=== PATIENT | male | born 1950 | race Caucasian/White ===

== ENCOUNTER 2017-09-09 01:37 | Inpatient (IN) ==
--- NOTE | 2017-09-09 02:00 | Emergency Department Note ---
Disposition Clinical Impression: Fracture, intertrochanteric, left femur Qualifiers: Encounter type: initial encounter Fracture type: closed Fracture alignment: displaced Qualified Code(s): S72.142A - Displaced intertrochanteric fracture of left femur, initial encounter for closed fracture Fracture of left distal radius Qualifiers: Encounter type: initial encounter Fracture type: closed Fracture morphology: unspecified fracture morphology Qualified Code(s): S52.502A - Unspecified fracture of the lower end of left radius, initial encounter for closed fracture Disposition: Admitted As Inpatient Condition: Good Time of Disposition: 03:59 Fall HPI - General Chief Complaint: ED Fall Stated Complaint: fall Time Seen by Provider: 09/09/17 01:50 Source: patient, EMS Nursing Notes Reviewed: Yes Vital Signs Reviewed: Yes - History of Present Illness Pt Subjective Complaint: fall Onset (ago): Just [employer] A[employer]LYST Fall From: standing Fall Witnessed: yes Place Fall Occurred: other ([employer] [employer]) Loss of Consciousness: none Prolonged Down Time?: no Symptoms Prior to Fall: other ("lost my balance) Context: alcohol use Location of injury - extremities: Left: forearm, hip, lower leg Associated symptoms (after fall): Reports: unable to walk, other (LLE pain). Denies: headache, neck pain - Related Data Allergies Allergy/AdvReac Type Severity Reaction Status Date / Time Penicillins Allergy See Verified 09/09/17 01:42 Comments All systems ED: reviewed and negative except as stated. Constitutional: Denies: fever Eyes: Denies: vision change Cardiovascular: Denies: chest pain, palpitations Respiratory: Denies: dyspnea Gastrointestinal: Denies: abdominal pain, nausea, vomiting Musculoskeletal: Reports: as per HPI. Denies: back pain Integumentary: Denies: rash Neurological: Denies: headache Endocrine: Denies: fatigue Hematological/Lymphatic: Denies: easy bleeding Allergic/Immunologic: Denies: facial swelling Fall PMH - Past Medical History Medical history: Reports: COPD, GERD, hyperlipidemia, hypertension Psychiatric history: Reports: no psych history - Social History Smoking Status: Current every day smoker Alcohol use: Reports: occasionally Drug use: Reports: none Physical Exam - General Limitations: no limitations General appearance: alert, in no apparent distress - Head Head exam: normocephalic - Eye Eye exam: Present: EOMI. Absent: conjunctival injection - ENT ENT exam: mucous membranes moist - Neck Neck exam: Present: full ROM - Chest Chest inspection: Present: symmetric chest wall rise - Respiratory Respiratory exam: Present: normal lung sounds bilaterally. Absent: respiratory distress - Cardiovascular Cardiovascular exam: Present: regular rate, normal rhythm - Abdominal Exam Abdominal exam: Present: soft, Non-Tender - Extremities Exam Extremities exam: Present: normal capillary refill - Expanded Upper Extremity Exam Shoulder exam: Present: full ROM. Absent: tenderness Arm exam: Present: full ROM. Absent: tenderness Elbow exam: Present: full ROM. Absent: tenderness Forearm/Wrist exam: Present: tenderness, swelling, deformity (left). Absent: full ROM, tenderness over anatomical snuff box Hand exam: Present: tenderness. Absent: full ROM Neuromotor exam: Normal: thumb opposition, thumb IP flexion, thumb adduction, fingers 2-5 abduction Neurosensory exam: Normal: 2-point discrimination Hand tendon exam: Normal: flexor digitorum profundus (location), flexor digitorum superficialis (location), extensor tendon (location) Vascular exam: Normal: capillary refill, radial pulse - Expanded Lower Extremity Exam Hip/Pelvis exam: Present: tenderness. Absent: full ROM (left passive ROM limited due to pain), external rotation, internal rotation, shortening Upper leg exam: Absent: tenderness Knee exam: Absent: tenderness Lower leg exam: Absent: tenderness Ankle exam: Present: normal inspection. Absent: tenderness Foot/toe exam: Present: normal inspection. Absent: tenderness Neurovascular/Tendon exam: Present: normal capillary refill. Absent: pulse deficit, motor deficit, sensory deficit, tendon deficit Gait: not tested/not observed - Back Exam Back exam: Present: full ROM. Absent: tenderness - Neurological Exam Neurological exam: Present: alert, oriented X3 - Psychiatric Psychiatric exam: Present: normal affect, normal mood - Skin Skin exam: Present: warm, dry, intact, normal color. Absent: rash, cyanosis, diaphoresis Course Course Narrative: 67-year-old female who arrives via squad with report of injuries from a fall. Squad reports patient was at the [employer], and they were told patient had come in from the patio and had fallen down. Patient reports that he lost his balance. Fall was witnessed by the clubs ceo and president. Patient does report etoh intake of "5 or 6". No reported injury to his head or neck, loss of consciousness, prolonged downtime. She is vitals within normal limits. Vision seen and examined. He is alert and oriented 3. Notable deformity to his left wrist, but good cap refill. No sensory deficits. No facial asymmetry. Lung sounds clear to auscultation. Heart regular rate and rhythm. Patient complains of left hip pain. No notable deformity, shortening, internal or external rotation. Passive range of motion limited due to pain. No abdominal tenderness knee tenderness. Discussed patient with Dr. Arora, who agreed with CT scan of head and neck. Analgesics ordered. Imaging ordered. - Reevaluation(s) Reevaluation #1: Left hip x-ray shows femoral neck fracture. Left forearm x-ray shows distal radius fracture. Radiologist report pending. We will plan for admission, ortho consult, and attempt to control patient's pain. Discussed pt with Dr. Arora who had face time with patient and agreed with admission. Time: 02:57 Reevaluation #2: Pt discussed with and accepted by Hospitalist Dr. Hoffman Time: 04:19 - Consultations Consultation #1: Patient was discussed with on-call orthopedic surgeon is Dr. Emerson, who requested admission to the hospitalist, to have patient kept nothing by mouth for likely surgery tomorrow. Time: 03:57 Vital Signs Temperature 0 F L 09/09/17 01:42 Pulse Rate 87 09/09/17 01:42 Respiratory Rate 16 09/09/17 01:42 Blood Pressure 121/78 09/09/17 01:42 O2 Sat by Pulse Oximetry 96 09/09/17 01:42 Temperature 97.6 F 09/09/17 05:12 Pulse Rate 92 09/09/17 05:12 Respiratory Rate 19 09/09/17 05:12 Blood Pressure 142/78 09/09/17 05:12 O2 Sat by Pulse Oximetry 96 09/09/17 05:12 Oxygen Delivery Oxygen Delivery Room Air Fall - MDM Narrative Medical decision making narrative: Cervical Spine CT 09/09/17 01:52 IMPRESSION: No acute abnormality of the cervical spine. D/ / Jose Escalante MD / Jose Escalante MD Interpreting Provider: Jose Escalante MD Head CT 09/09/17 01:52 IMPRESSION: Small vessel chronic ischemic changes without acute hemorrhage or definite evidence for acute ischemia. D/ / Jose Escalante MD / Jose Escalante MD Interpreting Provider: Jose Escalante MD Forearm X-Ray 09/09/17 01:54 IMPRESSION: 1. Comminuted distal radius with dorsal displacement at the fracture site. D/ / Juan Laws MD / Juan Laws MD Interpreting Provider: Juan Laws MD Hand X-Ray 09/09/17 01:54 IMPRESSION: 1. Comminuted distal radius with dorsal displacement at the fracture site. D/ / Juan Laws MD / Juan Laws MD Interpreting Provider: Juan Laws MD Hip X-Ray 09/09/17 01:56 IMPRESSION: Acute, angulated intertrochanteric left hip fracture. D/ / Jose Escalante MD / Jose Escalante MD Interpreting Provider: Jose Escalante MD Laboratory Tests 09/09/17 09/09/17 09/09/17 03:11 03:11 03:11 WBC 9.0 RBC 3.45 L Hgb 11.0 L Hct 31.2 L MCV 90.4 MCH 31.9 MCHC 35.3 RDW 15.1 H Plt Count 314 MPV 9.3 L Immature Gran % 1.1 Seg Neutrophils % 72.0 Lymphocytes % 16.2 Monocytes % 8.8 Eosinophils % 1.0 Basophils % 0.9 Neutrophils # 6.5 Lymphocytes # 1.5 Monocytes # 0.8 Eosinophils # 0.1 Basophils # 0.1 Immature Plt Fraction 5.1 PT 10.4 INR 1.0 APTT 27.2 Sodium 124 L Potassium 4.4 Chloride 94 L Carbon Dioxide 18 L BUN 6 L Creatinine 0.56 L Est GFR ( Amer) > 60 Est GFR (Non-Af Amer) > 60 BUN/Creatinine Ratio 11 Glucose 108 H Calculated Osmolality 256 L Calcium 7.8 L Ethyl Alcohol 175 H - Lab Data Lab results reviewed: Yes I reviewed the patient's lab results. Result diagrams: 09/09/17 03:11 09/09/17 03:11 Lab Results 09/09/17 09/09/17 09/09/17 Range/Units 03:11 03:11 03:11 WBC 9.0 (4.3-11.1) K/mcL RBC 3.45 L (4.19-5.50) M/mcL Hgb 11.0 L (12.9-16.9) g/dL Hct 31.2 L (37.5-50.1) % MCV 90.4 (83.0-100.0) fL MCH 31.9 (28.0-33.3) pg MCHC 35.3 (31.6-35.5) g/dL RDW 15.1 H (11.5-14.5) % Plt Count 314 (140-400) K/mcL MPV 9.3 L (9.4-12.4) fL Immature Gran % 1.1 (0-4) % Seg Neutrophils % 72.0 % Lymphocytes % 16.2 % Monocytes % 8.8 % Eosinophils % 1.0 % Basophils % 0.9 % Neutrophils # 6.5 (1.6-8.9) K/mcL Lymphocytes # 1.5 (0.6-4.6) K/mcL Monocytes # 0.8 (0.0-1.3) K/mcL Eosinophils # 0.1 (0.0-0.6) K/mcL Basophils # 0.1 (0.0-0.2) K/mcL Immature Plt Fraction 5.1 (1.1-6.1) % PT 10.4 (9.4-12.1) Seconds INR 1.0 APTT 27.2 (26.0-36.0) Seconds Sodium 124 L (136-145) mEq/L Potassium 4.4 (3.5-4.5) mEq/L Chloride 94 L (98-109) mEq/L Carbon Dioxide 18 L (19-29) mEq/L BUN 6 L (8-26) mg/dL Creatinine 0.56 L (0.72-1.25) mg/dL Est GFR ( Amer) > 60 (> 60) Est GFR (Non-Af Amer) > 60 (> 60) BUN/Creatinine Ratio 11 (6-26) Glucose 108 H (70-99) mg/dL Calculated Osmolality 256 L (280-300) Calcium 7.8 L (8.6-10.8) mg/dL Ethyl Alcohol 175 H (0-10) mg/dL - Radiology Data Radiology results reviewed: Yes I reviewed the patient's radiology results. Attestation Statement - Attestation Attestation: Dr. Arora note: Patient was seen in conjunction with physician's clinical project assistant Jun Vicente; please see his charting for complete documentation. [id number] time with the patient and agree with the patient's treatment and disposition. Fractures to the left upper extremity and left hip are noted. No obvious head or neck injury. Patient admits to a fall tonight and was drinking alcohol. Pain was controlled prior to admission to the hospitalist with surgical consultation to the orthopedist
[2017-09-09] MEDS ORDERED: *HR* FentaNYL (PF) 100 MCG/2 ML VIAL IM ONE (02:01)
[2017-09-09] MEDS ORDERED: *HR* HYDROmorphone (PF) 1 MG/ML SYRINGE IVP ONE (02:59)
[2017-09-09] MEDS ORDERED: 0.9 % Sodium Chloride 1,000 ML IVC ONE (02:59)
[2017-09-09 03:17] LABS: Basophils # 0.1 K/mcL (0.0-0.2); Basophils % 0.9 %; Eosinophils # 0.1 K/mcL (0.0-0.6); Hematocrit 31.2 % (37.5-50.1); Immature Granulocytes % 1.1 % (0-4); Immature Platelets 5.1 % (1.1-6.1); Lymphocytes # 1.5 K/mcL (0.6-4.6); Lymphocytes % 16.2 %; Mean Corpuscular HGB Conc 35.3 g/dL (31.6-35.5); Mean Corpuscular Hemoglobin 31.9 pg (28.0-33.3); Mean Corpuscular Volume 90.4 fL (83.0-100.0); Mean Platelet Volume 9.3 fL (9.4-12.4); Monocytes # 0.8 K/mcL (0.0-1.3); Monocytes % 8.8 %; Neutrophils # 6.5 K/mcL (1.6-8.9); Platelet Count 314 K/mcL (140-400); Red Blood Count 3.45 M/mcL (4.19-5.50); Red Cell Distribution Width 15.1 % (11.5-14.5)
[2017-09-09 03:30] LABS: BUN/Creatinine Ratio 11 (6-26); Blood Urea Nitrogen 6 mg/dL (8-26); Calcium 7.8 mg/dL (8.6-10.8); Carbon Dioxide 18 mEq/L (19-29); Chloride 94 mEq/L (98-109); Ethanol 175 mg/dL (0-10); Glucose 108 mg/dL (70-99); Osmolality,Calculated 256 (280-300); Potassium 4.4 mEq/L (3.5-4.5); eGFR For African Americans > 60 (> 60); eGFR For Non-African Americans > 60 (> 60)
[2017-09-09 03:37] LABS: Sodium 124 mEq/L (136-145)
[2017-09-09] MEDS ORDERED: Naloxone 0.4 MG/ML INJ IVP PRN (04:44)
[2017-09-09] MEDS ORDERED: diazePAM 10 MG/2 ML SYRINGE IVP PRN ×5 (04:49)
--- NOTE | 2017-09-09 04:57 | Internal Med History&Physical ---
Date of Encounter: 09/09/17 Time of Encounter: 04:53 Assessment and Plan (1) Fracture of left distal radius Current visit: Yes Status: Acute ED d/w ortho for surgical management NPO, IVF IV morphine for pain check EKG He is at moderate risk for surgery - family reported carotid stenosis where he has previously declined surgical correction Incentive spirometry VTE ppx Qualifiers: Encounter type: initial encounter Fracture type: closed Fracture morphology: unspecified fracture morphology Qualified Code(s): S52.502A - Unspecified fracture of the lower end of left radius, initial encounter for closed fracture (2) Fracture, intertrochanteric, left femur Current visit: Yes Status: Acute plan as above Qualifiers: Encounter type: initial encounter Fracture type: closed Fracture alignment: displaced Qualified Code(s): S72.142A - Displaced intertrochanteric fracture of left femur, initial encounter for closed fracture (3) Alcoholism Current visit: Yes Status: Acute CIWA protocol Close monitoring (4) Hyponatremia Current visit: Yes Status: Acute isotonic IVF trend Na Could be related to beer potomania (5) COPD (chronic obstructive pulmonary disease) Current visit: Yes Status: Acute stable, prn albuterol Qualifiers: COPD type: chronic bronchitis Qualified Code(s): J42 - Unspecified chronic bronchitis Internal Medicine - H&P: HPI Chief complaint: Fall History of present illness: Mr. Freed is a 67 year old male who presents with alcohol intoxication and witnessed fall with angulated left hip AND left comminuted, displaced distal radius fracture. He was in the bar drinking about 5 beers this evening when he reported loosing balancem stumbled and fell to the floor on location. Had pain after the fall along left hip and left hand - worse with movement, improved with pain medications. He typically drugs 3-4 beers a day for many years and denies alcohol withdrawal prior. He smokes 1 PPD. His medical hx is significant for prior syncope/pre-syncope episodes that was attributed to carotid stenosis but patient has declined further intervention. He has COPD from smoking, dyspepsia on PPI, HLD. XR/XR hip complete LT IMPRESSION: Acute, angulated intertrochanteric left hip fracture. XR/XR hand 3V LT IMPRESSION: 1. Comminuted distal radius with dorsal displacement at the fracture site. XR/XR forearm LT IMPRESSION: 1. Comminuted distal radius with dorsal displacement at the fracture site. CT/CT head/brain wo con IMPRESSION: Small vessel chronic ischemic changes without acute hemorrhage or definite evidence for acute ischemia. CT/CT cervical spine wo con IMPRESSION: No acute abnormality of the cervical spine. Past Med Surg Social Fam HX - Past Medical History Medical history: COPD, GERD, hyperlipidemia, hypertension Psychiatric history: no psych history - Past Surgical History Surgical History: no surgical history - Social History Smoking Status: Current every day smoker Smokeless Tobacco Status: No Alcohol use: occasionally Drug use: none - Additional Family History Additional family history: HTN Internal Medicine - H&P: Meds 3 Allergy/AdvReac Type Severity Reaction Status Date / Time Penicillins Allergy See Verified 09/09/17 01:42 Comments All Systems PM: A 10-system review of systems was performed and is negative for pertinent findings except as documented above in the HPI. Review of systems: ROS 14 point review of systems reviewed as best as possible given presentation. Pertinent positive or negative as per HPI or otherwise reviewed as negative - Constitutional Vitals: Temp Pulse Resp BP Pulse Ox 97.7 F 94 16 128/66 95 09/09/17 04:07 09/09/17 03:45 09/09/17 04:31 09/09/17 04:31 09/09/17 03:45 Exam: General - AAO x 3 Psych - Appropriate affect/speech. No agitation Eyes - JORGE. Eye lids intact. No scleral icterus Heart - Sinus. RRR. S1 and S2 present. No added HS/murmurs appreciated. No elevated JVD appreciated. Lung - Adequate air entry b/l, No crackles/wheezes appreciated GI - Soft, non-tender. No hepatosplenomegaly/ascites. BS+ MSK - Pain on movement of left hand and left hip limiting exam Internal Med - H&P Results - Labs CBC & Chem 7: 09/09/17 03:11 09/09/17 03:11
[2017-09-09 05:20] LABS: Prothrombin Time 10.4 Seconds (9.4-12.1)
[2017-09-09 05:23] LABS: Activated Partial Thrombo Time 27.2 Seconds (26.0-36.0)
[2017-09-09] MEDS: *HR* Morphine 2 MG/ML SYRINGE IVP PRN ×4 (05:34→17:01)
[2017-09-09] MEDS: Ringers Solution, Lactated 1,000 ML IVC SCH ×2 (05:36→15:41)
[2017-09-09] MEDS ORDERED: Thiamine (B-1) 100 MG TABLET PO SCH (09:00)
[2017-09-09] MEDS ORDERED: Folic Acid 1 MG TABLET PO SCH (09:00)
[2017-09-09] MEDS ORDERED: Metoprolol XL (24 HR) Succ 25 MG TAB.ER.24H PO SCH (10:30)
--- NOTE | 2017-09-09 13:17 | Cardiology Consult Note ---
<Logan Luu - Last Filed: 09/09/17 14:10> Date of Encounter: 09/09/17 Time of Encounter: 13:05 Assessment and Plan (1) Preoperative cardiovascular examination Current Visit: Yes Status: Acute Consulted for preoperative cardiovascular examination without ECG signs of ischemia, no chest pain/shortness of breath ECG shows sinus tachycardia. As per interval history: Patient PMH COPD without O2 dependence, no exertional Blas, able to climb stairs, no dyspnea/chest discomfort. Unspecified carotid stenosis from chart review, no bruit on exam, patient asked in lay terms, does not recall any evaluation of carotids. H&H stable, intact kidney function, hyponatremia being assessed by primary team , possibly beer potomania. Plan: Moderate risk. Plan for surgery at orthopedic discretion. (2) Fracture of left distal radius Current Visit: Yes Status: Acute Fall early AM at bar likely secondary to intoxication. Plan for surgery today. Qualifiers: Encounter type: initial encounter Fracture type: closed Fracture morphology: unspecified fracture morphology Qualified Code(s): S52.502A - Unspecified fracture of the lower end of left radius, initial encounter for closed fracture (3) Fracture, intertrochanteric, left femur Current Visit: Yes Status: Acute Fall early AM at bar likely secondary to intoxication. Plan for surgery today. Qualifiers: Encounter type: initial encounter Fracture type: closed Fracture alignment: displaced Qualified Code(s): S72.142A - Displaced intertrochanteric fracture of left femur, initial encounter for closed fracture (4) COPD (chronic obstructive pulmonary disease) Current Visit: Yes Status: Acute Non-o2 dependent, on room air, no complaints. Qualifiers: COPD type: chronic bronchitis Chronic bronchitis type: unspecified Qualified Code(s): J42 - Unspecified chronic bronchitis Discussion w patient/family: The assessment and plan as outlined above was discussed with the patient and/or family members who expressed understanding and agreement. All questions were answered. Thank you for involving us in the care of your patient. Please call with any questions. History of Present Illness Consult date: 09/09/17 Requesting physician: Boogie Garrido Consult reason: Pre-surgical risk stratification Chief complaint: L Arm L Leg pain History of present illness: Misha Freed is a 67 y/o male, PMH COPD, non-oxygen dependent, 1PPD x 50 years , came in to ED early AM with complaint of left arm and leg pain after fall at [employer]. Pt reports feeling having had around "five to six drinks" and feeling unbalanced, was witnessed, patient never lost consciousness. ED imaging shows L radial and L femur fracture. Surgery planned for today. Cardiology consulted for risk stratification. Pt denies chest pain at rest or with exertion , no known [place], denies loss of consciousness in past (there is mention of pre- sycope in HPI with diagnosis of carotid stenosis, no reports seen in [facility] or [facility], follows a PCP in [place]--patient does not recall having his neck/ carotids evaluated) reports being able to climb stairs and do groceries without issue/shortness of breath. Past Med Surg Social Fam HX - Past Medical History Medical history: COPD, GERD, hyperlipidemia, hypertension Psychiatric history: no psych history - Past Surgical History Surgical History: no surgical history - Social History Smoking Status: Current every day smoker Smokeless Tobacco Status: No Alcohol use: occasionally Drug use: none - Family History Mother Hx Family Cardiac Disorders: Yes (sister) Hx Family Respiratory Disorders: Yes (asthma) Hx Family Cancer: No Hx Family GI Disorders: No Hx Family Genitourinary Disorders: No Hx Family Endocrine Disorder: No Hx Family Musculoskeletal Disorders: No Hx Family Neuromuscular Disorders: No Hx Family Neurologic Disorders: No Hx Family HEENT Disorders: No Hx Family Autoimmune Disorders: No Hx Family Reproductive Disorders: No Hx Family Psychosocial Disorders: No Hx Family Medical Disorders: No Medications and Allergies Ipratropium/Albuterol Sulfate [Combivent Respimat Inhal [place]] 1 puff IH QID 10/26 [History] Loratadine [Allergy Relief] 10 mg PO DAILY 09/09/17 [History] Metoprolol Succinate 25 mg PO DAILY 09/09/17 [History] Montelukast [Singulair] 10 mg PO DAILY 09/09/17 [History] Ranitidine HCl [Acid Paleobotanist] 150 mg PO BID 09/09/17 [History] Simvastatin [Zocor] 40 mg PO HS 09/09/17 [History] 3 Allergy/AdvReac Type Severity Reaction Status Date / Time Penicillins Allergy See Verified 09/09/17 09:16 Comments All Systems Review: A 10-system review of systems was performed and is negative for pertinent findings except as documented above in the HPI. - Constitutional Constitutional: no headache(s), no lethargy - EENT Eyes: no blurred vision - Cardiovascular Cardiovascular: no chest pain at rest, no chest pain with exertion, no dyspnea on exertion, no syncope - Respiratory Respiratory: no dyspnea - Musculoskeletal Musculoskeletal: other (L arm and L leg pain) Physical Examination Vital Signs, Last 4 Hours Temp Pulse Resp BP Pulse Ox 09/09/17 10:15 97.9 F 93 16 138/76 99 General: Conversant HEENT: Atraumatic Neck: No JVD, Other (no audible bruit on carotid auscultation) Cardiac: Normal S1 and S2, No Murmur, Other (tachycardia, regular rhythm) Lungs: No Wheeze, Rales, Rhonchi Neuro: No focal deficits noted Extremities: No Clubbing, No Cyanosis, No Edema, Other (normal capillary refill , extremity sensation intact 4 dermatomes.) Results 09/09/17 03:11 09/09/17 03:11 Consult Discharge Plan - Plan Referrals: Riley Boggs [Family Provider] - <Piter Rahman - Last Filed: 09/09/17 15:17> Date of Encounter: 09/09/17 - Attending Attestation I examined this patient and my medical decision-making was reviewed with the Resident Physician. I agree with the documented findings, disposition and treatment plan as described except to the extent set forth below. Admitted after mechanical fall. EKG shows sinus tachycardia. Otherwise no cardiac abnormality. No further cardiac testing needed. Assessment and Plan Discussion w patient/family: The assessment and plan as outlined above was discussed with the patient and/or family members who expressed understanding and agreement. All questions were answered. Thank you for involving us in the care of your patient. Please call with any questions. History of Present Illness History of present illness: Mr. Freed is a 67 year old male All Systems Review: A 10-system review of systems was performed and is negative for pertinent findings except as documented above in the HPI. Results 09/09/17 03:11 09/09/17 03:11
--- NOTE | 2017-09-09 14:20 | Event Note ---
Date of Encounter: 09/09/17 Time of Encounter: 14:17 67-year-old male Background history of alcoholism, COPD, hyperlipidemia, hypertension. Patient was admitted to the hospital without call intoxication. There was a witnessed fall with the angulated left hip and left communicated displaced distal radius fracture. Patient is evaluated by orthopedic surgery. And will be going for surgery sometime today. Patient is presently on a CIWA protocol as he showed some symptoms of a cold at all. Preoperative EKG was suggestive of atrial fibrillation as a computer read. I personally reviewed EKG and I do not think it is in atrial fibrillation/ atrial flutter. Cardiology on the board for further management and recommendations. Plan: We will follow the recommendations from orthopedics regarding postsurgical issues. We will continue to monitor him very closely regarding his alcohol withdrawal symptoms.
[2017-09-09] MEDS ORDERED: *HR* Enoxaparin 40 MG/0.4 ML SYRINGE SQ SCH (18:00)
[2017-09-09] MEDS ORDERED: *HR* Labetalol 20 MG/4 ML SYRINGE IVP PRN (20:13)
[2017-09-09] MEDS ORDERED: Albuterol 2.5 MG/3 ML NEBULIZER IH ONE (20:13)
[2017-09-09] MEDS ORDERED: Ondansetron 4 MG/2 ML VIAL IVP ONE (20:13)
[2017-09-09] MEDS ORDERED: *HR* Promethazine 25 MG/ML VIAL IVP PRN (20:13)
--- NOTE | 2017-09-09 20:19 | Anesthesia Evaluation PreOp ---
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 HEALTH REPRESENTATIVE History: Denies Any Significant HX Other Medical History: GERD Anesthesia History: Past Anesthesia Alcohol Use: heavy (admits to 3-4 beers/day) Drug use: none Medications and Allergies Ipratropium/Albuterol Sulfate [Combivent Respimat Inhal [place]] 1 puff IH QID 10/26 [History] Loratadine [Allergy Relief] 10 mg PO DAILY 09/09/17 [History] Metoprolol Succinate 25 mg PO DAILY 09/09/17 [History] Montelukast [Singulair] 10 mg PO DAILY 09/09/17 [History] Ranitidine HCl [Acid Public Health Nurse] 150 mg PO BID 09/09/17 [History] Simvastatin [Zocor] 40 mg PO HS 09/09/17 [History] 3 Allergy/AdvReac Type Severity Reaction Status Date / Time Penicillins Allergy See Verified 09/09/17 09:16 Comments - Meds/Allergy Pre-op Review Medications Reviewed: Yes Allergies Reviewed: Yes Beta Blockers on Current Med List: Yes (09/09/2017 @ 10:40) Anesthesia Results - Labs 09/09/17 03:11 09/09/17 03:11 Anesthesia Exam O2 Sat Height 1.7 m Height 1.68 m Weight 74.9 kg Weight 68.039 kg O2 Sat by Pulse Oximetry 97 O2 Sat by Pulse Oximetry 99 O2 Sat by Pulse Oximetry 98 O2 Sat by Pulse Oximetry 96 O2 Sat by Pulse Oximetry 95 O2 Sat by Pulse Oximetry 96 Vital Signs Temp Pulse Resp BP Pulse Ox 0 F L 87 16 121/78 96 09/09/17 01:42 09/09/17 01:42 09/09/17 01:42 09/09/17 01:42 09/09/17 01:42 Vital Signs/O2 Sat, Most Current Temp Pulse Resp BP Pulse Ox 98.0 F 112 17 188/90 97 09/09/17 19:12 09/09/17 19:12 09/09/17 19:12 09/09/17 19:12 09/09/17 19:12 Height: 5'7'' Weight: 165# NPO (# of Hours): > 8 hrs Pain Scale: 0 Pain Scale Used: Numeric (1 - 10) - HEENT Pupil (Motor): Pupils equal, EOMI Mallampati: II Teeth: Edentulous Denture Type: Upper: Complete Oral Opening: Greater than 3 - COMMUNITY HEALTH REPRESENTATIVE LOC: Oriented COMMUNITY HEALTH REPRESENTATIVE Motor: Normal RUE, Normal LUE, Normal RLE, Normal LLE, Normal Face COMMUNITY HEALTH REPRESENTATIVE Sensory: Normal: RUE, LUE, RLE, LLE, Face - Cardiac Rhythm: Regular Murmur: None JVD: No Carotid Bruit: No - Pulmonary Breath Sounds: bilateral Clear Respiratory Effort: Symmetrical Anesthesia Assess/Plan ASA Score: 3 Modified Rocio Scale for Level of Consciousness: Cooperative, oriented, and tranquil Anesthetic Plan: General Autologous Blood: Yes Monitoring Plan: Standard Monitors
[2017-09-09] MEDS ORDERED: *HR* FentaNYL (PF) 100 MCG/2 ML VIAL ONE (20:36)
[2017-09-09] MEDS ORDERED: *HR* Rocuronium Bromide 50 MG/5 ML VIAL ONE (20:36)
[2017-09-09] MEDS ORDERED: *HR* Propofol 200 MG/20 ML VIAL IVP ONE (20:36)
[2017-09-09] MEDS ORDERED: *HR* Midazolam HCl 2 MG/2 ML VIAL ONE (20:36)
[2017-09-09] MEDS ORDERED: Ondansetron 4 MG/2 ML VIAL ONE (20:36)
[2017-09-09] MEDS ORDERED: Lidocaine -MPF 2% 2 ML VIAL ONE (20:36)
[2017-09-09] MEDS ORDERED: Dexamethasone 4 MG/ML VIAL ONE (20:36)
--- NOTE | 2017-09-09 21:45 | Orthopedic Consult Note ---
Date of Encounter: 09/09/17 Time of Encounter: 21:38 History of Present Illness Chief complaint: Left hip and left wrist pain HPI: Mr. Freed is a 67 year old [id number] male to me from previous surgical fixation of a right hip fracture nearly 10 years ago. The patient states that he lost his balance and fell last night. He had immediate left hip pain and left wrist pain and was able to ambulate. He was brought to the emergency room where x-rays taken revealed evidence of both a left hip and a left wrist fracture. He is admitted now for further evaluation and management. For complete history and physical data please refer the completed portion of the medical record. Pertinent orthopedic examination reveals a left upper extremity to be in a compression type dressing. There is some hand swelling. Neurosensory exam appears to be grossly intact. Left lower extremity is held in a somewhat shortened position. No excessive rotation is noted. I reviewed pelvis and left hip x-rays. Right side reveals previous open reduction internal fixation of the hip with a sliding hip screw construct. Posttraumatic arthritis identified. Left hip shows an acute intertrochanteric type fracture. Left wrist shows a complex comminuted displaced intra-articular fracture with marked shortening and loss of the normal palmar tilt. Impression: #1 intertrochanteric fracture left hip #2 displaced comminuted intra -articular fracture left distal radius Recommendation: I discussed with the patient and I would recommend we proceed with #1 intramedullary nailing of the left hip and #2 open reduction internal fixation of left distal radius. I discussed the fractures as well as treatment options at length with the patient. We discussed the surgical procedures with the potential risks and complications including but not limited to bleeding infection blood clots nerve injury stiffness malunion nonunion leg length or rotational deformities and even the need for additional surgery. Concerning the hip he understands there is the chance of a posttraumatic arthritic hip similar to the right. In regards to the hip he understands he will probably able to begin weightbearing quickly but in regards to the left wrist he will not be able to weight-bear across the wrist for at least 6 weeks or more. Patient understands and agrees with the plan of care and has signed informed consent to proceed with surgery. Thank you very much for allowing me to see care for Mr. Freed. Sincerely, Sterling Emerson,DO Past Med Surg Social Fam HX - Past Medical History Medical history: COPD, GERD, hyperlipidemia, hypertension Psychiatric history: no psych history - Past Surgical History Surgical History: no surgical history - Social History Smoking Status: Current every day smoker Smokeless Tobacco Status: No Alcohol use: heavy (admits to 3-4 beers/day) Drug use: none - Family History Mother Hx Family Cardiac Disorders: Yes (sister) Hx Family Respiratory Disorders: Yes (asthma) Hx Family Cancer: No Hx Family GI Disorders: No Hx Family Genitourinary Disorders: No Hx Family Endocrine Disorder: No Hx Family Musculoskeletal Disorders: No Hx Family Neuromuscular Disorders: No Hx Family Neurologic Disorders: No Hx Family HEENT Disorders: No Hx Family Autoimmune Disorders: No Hx Family Reproductive Disorders: No Hx Family Psychosocial Disorders: No Hx Family Medical Disorders: No Medications and Allergies Ipratropium/Albuterol Sulfate [Combivent Respimat Inhal [place]] 1 puff IH QID 10/26 [History] Loratadine [Allergy Relief] 10 mg PO DAILY 09/09/17 [History] Metoprolol Succinate 25 mg PO DAILY 09/09/17 [History] Montelukast [Singulair] 10 mg PO DAILY 09/09/17 [History] Ranitidine HCl [Acid Netsuite Consultant] 150 mg PO BID 09/09/17 [History] Simvastatin [Zocor] 40 mg PO HS 09/09/17 [History] 3 Allergy/AdvReac Type Severity Reaction Status Date / Time Penicillins Allergy See Verified 09/09/17 09:16 Comments All Systems Reviewed: A 10-system review of systems was performed and is negative for pertinent findings except as documented above in the HPI. Physical Exam - Constitutional Vitals: Temp Pulse Resp BP Pulse Ox 98.0 F 112 17 188/90 97 09/09/17 19:12 09/09/17 19:12 09/09/17 19:12 09/09/17 19:12 09/09/17 19:12 Results - Labs Result Diagrams: 09/09/17 03:11 09/09/17 03:11 Labs: Abnormal lab results RBC 3.45 M/mcL (4.19-5.50) L 09/09/17 03:11 Hgb 11.0 g/dL (12.9-16.9) L 09/09/17 03:11 Hct 31.2 % (37.5-50.1) L 09/09/17 03:11 RDW 15.1 % (11.5-14.5) H 09/09/17 03:11 MPV 9.3 fL (9.4-12.4) L 09/09/17 03:11 Sodium 124 mEq/L (136-145) L 09/09/17 03:11 Chloride 94 mEq/L (98-109) L 09/09/17 03:11 Carbon Dioxide 18 mEq/L (19-29) L 09/09/17 03:11 BUN 6 mg/dL (8-26) L 09/09/17 03:11 Creatinine 0.56 mg/dL (0.72-1.25) L 09/09/17 03:11 Glucose 108 mg/dL (70-99) H 09/09/17 03:11 POC Glucose 112 (58-89) H 09/09/17 02:01 Calculated Osmolality 256 (280-300) L 09/09/17 03:11 Calcium 7.8 mg/dL (8.6-10.8) L 09/09/17 03:11 Ethyl Alcohol 175 mg/dL (0-10) H 09/09/17 03:11 All other labs normal. - Diagnostic results Wrist/Hand x-ray: image reviewed Hip x-ray: image reviewed Pelvic AP x-ray: image reviewed Consult Discharge Plan - Plan Referrals: Riley Boggs [Family Provider] -
[2017-09-09] MEDS ORDERED: Clindamycin 900 MG/50 ML 900 MG/50 ML IV.SOLN IVPB ONE (21:48)
[2017-09-10] MEDS: *HR* HYDROmorphone (PF) 1 MG/ML SYRINGE IVP PRN ×2 (01:11→01:17)
--- NOTE | 2017-09-10 01:20 | Operative Note ---
Date of procedure: 09/10/17 Pre-op diagnosis: #1. Intertrochanteric fracture left hip #2. Displaced comminuted intra-ar Post-op diagnosis: same Procedure: #1. Intramedullary nailing left hip #2. Fluoroscopic guidance for IM nailing left hip #3. Open reduction internal fixation of left distal radius fracture #4. Fluoroscopic guidance for ORIF left distal radius Implants: #1. Synthes 11 mm x 170 mm x 130 degree TFNA with a 100 mm x 11 mm helical blade and a 34 mm x 5.0 mm distal locking screw #2. Synthes 2.4 mm left 3-hole VALCP 2 column distal radius plate Complications: None Anesthesia: GETA Surgeon: Sterling Emerson Estimated blood loss (cc): 105 Tourniquet Time (Minutes): 65 Specimen: None Condition: stable Disposition: PACU Procedure in Detail: Gross findings: Preoperative x-rays of the left hip revealed a complex comminuted intertrochanteric fracture with marked comminution of the greater trochanter. Previously the patient had undergone compression hip screw treatment of a right intertrochanteric fracture with secondary posttraumatic arthritic changes present. Intraoperative findings were as anticipated with a markedly comminuted greater trochanter. The fracture was able to be stabilized a anatomic position with a trochanteric femoral nail. Fluoroscopy was used to guide the reduction and verify continue maintenance reduction excellent position of the implants. Preoperative x-rays of the left wrist revealed a complex comminuted intra- articular fracture involving distal radius with an associated ulnar styloid fracture. This was a Frykman VIII fracture. The fracture was able to be reduced and held in excellent position utilizing a volar radial plate and screw type construct. Tremendous comminution was noted. Fluoroscopy was used to verify the fracture was well reduced and implants were in excellent position. Procedure: Patient was taken the operating room and administered a general anesthesia probably hospital bed. Patient was then transferred to the [facility] fracture table. Left lower extremity was placed in longitudinal traction right lower extremity was positioned out of harm's way and well leg joseph. Fluoroscopy was now introduced a utilized to guide the preliminary reduction which was accomplished with a combination of traction adduction and some external rotation. Once alignment was verified to be markedly improve the left hip was prepped and draped in normal standard fashion for surgery. Approximately 3 cm incision was created above the level of trochanter. Dissection was carried through subcutaneous interstitial stand levelly tensor fascia gorge which was split and dissection was carried directly down onto the greater trochanter. Marked comminution was noted with the guidepin able to be passed right through the fracture down the femoral canal. Trochanter was opened up with the coring type reamer. The selected nail was then placed upon the insertion jig passed over the wire. The wire was removed and the nail was seated. Position of the nail and the fracture was verified with fluoroscopy. At this time the 130 degree guide was used to create an incision over the lateral femoral metaphyseal region. Dissection was carried through the skin and subcutaneous interstitial the level of fascia which was split. At this time the guide was used to place a pin into the central position on the femoral head as verified with multiplane fluoroscopy. Pin length was measured and a 100 mm helical blade was selected. Head and neck were then reamed. The helical blade was then inserted and secured proximally locking it from rotation. Fracture was then compressed with excellent compression noted. A distal locking screw was then placed in the insertion jig was removed. Verification of the excellent reduction and fracture implants was made with multiplane fluoroscopy. Wounds were then irrigated and closed with #1 Vicryl in the fascia followed by 2-0 Vicryl in the medius obtained his tissues and the skin approximation with running 20 striata fix. Skin was applied. This is followed by operative foam dressing. The lower extremity was then placed onto the fracture table without any tension or traction. Attention was now turned to the distal radius fracture. The left upper extremity was now prepped and draped in normal standard fashion with tourniquet placed high about the upper arm. Tremendous amount of edema was noted. The arm was now exsanguinated utilizing Esmarch and tourniquet was inflated. Incision was made over the volar wrist from the flexor crease and carried proximally. Dissection was carried down to the blood stains obtained his tissues. The volar retinaculum was then cleared and split the length of the incision. Dissection was carried directly down onto the distal radius which is now exposed in a subperiosteal manner. Tremendous amount of comminution and fracture hematoma was encountered. The scope was irrigated. At this time the fracture was able to be reduced. Temporary fixation of the plate to the radius was performed with smooth pins. Several distal locking screws were then placed. Position was verified to be well positioned behind the articular surface with multiplane fluoroscopy. The plate was then reduced to the radial shaft. This was then locked down with a nonlocking screw. Once again position was verified to be excellent. At this time 2 locking screws were placed in the shaft of the plate. Multiple additional locking screws were then placed distally. Final fluoroscopic views were taken verifying reduction of the fracture and position of the implants. Wound was now irrigated and closed with 5-0 Prolene suture. Sterile dressings consisting of bacitracin Adaptic 4 x 4 sterile cast padding and Robe wraps were now applied and secured. Tourniquet was now deflated. Patient was now placed into a sling. Patient was now awakened from anesthesia extubating operating room and transferred to the postanesthesia care unit in stable and satisfactory condition. All sponge needle and instrument counts are correct. No specimens were sent for pathology.
[2017-09-10] MEDS ORDERED: *HR* HYDROmorphone (PF) 1 MG/ML SYRINGE IVP PRN (01:38)
[2017-09-10] MEDS ORDERED: *HR* Labetalol 20 MG/4 ML SYRINGE IVP PRN (01:38)
[2017-09-10] MEDS ORDERED: Ondansetron 4 MG/2 ML VIAL IVP ONE (01:38)
[2017-09-10] MEDS ORDERED: *HR* Morphine 2 MG/ML SYRINGE IVP PRN (01:38)
[2017-09-10] MEDS ORDERED: Naloxone 0.4 MG/ML INJ IVP PRN (01:38)
[2017-09-10] MEDS ORDERED: diazePAM 10 MG/2 ML SYRINGE IVP PRN ×5 (01:38)
[2017-09-10] MEDS ORDERED: *HR* Promethazine 25 MG/ML VIAL IVP PRN (01:38)
[2017-09-10] MEDS ORDERED: Albuterol 2.5 MG/3 ML NEBULIZER IH ONE (01:38)
--- NOTE | 2017-09-10 01:43 | Anesthesia Evaluation Post Op ---
Date of Encounter: 09/10/17 Time of Encounter: 01:42 - Vital Signs Vital Signs: Vital Signs/O2 Sat, Most Current Temp Pulse Resp BP Pulse Ox 97.2 F L 100 16 160/71 96 09/10/17 01:29 09/10/17 01:39 09/10/17 01:39 09/10/17 01:39 09/10/17 01:39 - Lungs Lungs: Clear Ascult./Percussion - Airway Airway: Non-obstructed - Cardiovascular Regular Rate - Mental Status Mental Status: Alert & Oriented, Answers Appropriately - Pain Pain Scale: 0 Pain Scale used: Numeric (1 - 10) - Nausea Vomiting Nausea Vomiting: Not Present - Hydration Hydration: NPO, Has not voided - Discharge PostOp Status: Transfer Patient to floor
[2017-09-10] MEDS: *HR* OxyCODONE Immed Rel 5 MG TABLET PO PRN ×3 (06:10→19:27)
[2017-09-10 07:20] LABS: BUN/Creatinine Ratio 16 (6-26); Blood Urea Nitrogen 9 mg/dL (8-26); Calcium 7.7 mg/dL (8.6-10.8); Carbon Dioxide 19 mEq/L (19-29); Chloride 90 mEq/L (98-109); Glucose 129 mg/dL (70-99); Magnesium 1.4 mg/dL (1.6-2.6); Osmolality,Calculated 256 (280-300); Potassium 4.8 mEq/L (3.5-4.5); Sodium 123 mEq/L (136-145); eGFR For African Americans > 60 (> 60); eGFR For Non-African Americans > 60 (> 60)
[2017-09-10 08:28] LABS: Basophils % 0.1 %; Hemoglobin 10.4 g/dL (12.9-16.9); Immature Granulocytes % 0.9 % (0-4); Lymphocytes # 0.6 K/mcL (0.6-4.6); Lymphocytes % 4.2 %; Mean Corpuscular HGB Conc 35.9 g/dL (31.6-35.5); Mean Corpuscular Hemoglobin 31.5 pg (28.0-33.3); Mean Corpuscular Volume 87.9 fL (83.0-100.0); Mean Platelet Volume 10.4 fL (9.4-12.4); Monocytes # 1.3 K/mcL (0.0-1.3); Monocytes % 9.2 %; Platelet Count 261 K/mcL (140-400); Red Cell Distribution Width 14.6 % (11.5-14.5); Segmented Neutrophils % 85.6 %
[2017-09-10 08:29] LABS: Neutrophils # 12.2 K/mcL (1.6-8.9)
[2017-09-10] MEDS: Clindamycin 900 MG/50 ML 900 MG/50 ML IV.SOLN IVPB SCH ×2 (08:55→15:03)
[2017-09-10] MEDS: Metoprolol XL (24 HR) Succ 25 MG TAB.ER.24H PO SCH (08:55)
[2017-09-10] MEDS: Thiamine (B-1) 100 MG TABLET PO SCH (08:55)
[2017-09-10] MEDS: Folic Acid 1 MG TABLET PO SCH (08:55)
[2017-09-10] MEDS: Ondansetron 4 MG/2 ML VIAL IVP PRN (12:02)
[2017-09-10] MEDS: Nicotine 21 MG PATCH.TD24 TD SCH (15:02)
--- NOTE | 2017-09-10 15:54 | Internal Med Progress Note ---
Date of Encounter: 09/11/17 Time of Encounter: 15:54 - Assessment and plan (1) Fracture, intertrochanteric, left femur Current Visit: Yes Status: Acute Assessment and plan: Postoperative day one. Patient is comfortable. We will follow the recommendations from orthopedics. Qualifiers: Encounter type: subsequent encounter Fracture type: closed Fracture alignment: displaced Fracture healing: with routine healing Qualified Code(s ): S72.142D - Displaced intertrochanteric fracture of left femur, subsequent encounter for closed fracture with routine healing (2) Fracture of left distal radius Current Visit: Yes Status: Acute Assessment and plan: See above Qualifiers: Encounter type: initial encounter Fracture type: closed Fracture morphology: unspecified fracture morphology Qualified Code(s): S52.502A - Unspecified fracture of the lower end of left radius, initial encounter for closed fracture (3) Alcoholism Current Visit: Yes Status: Acute Assessment and plan: Patient is not in a withdrawal symptoms. We will continue to closely monitor this patient. (4) COPD (chronic obstructive pulmonary disease) Current Visit: Yes Status: Acute Assessment and plan: Stable COPD. He is not in exacerbation of COPD. Qualifiers: COPD type: chronic bronchitis Chronic bronchitis type: unspecified Qualified Code(s): J42 - Unspecified chronic bronchitis - Subjective Interval history: Patient seen and examined. Chart reviewed. Patient came from surgery today. Postoperative day one. - Constitutional Vitals: Temp Pulse Resp BP Pulse Ox 98.8 F 104 16 129/70 93 09/10/17 15:39 09/10/17 15:39 09/10/17 15:39 09/10/17 15:39 09/10/17 15:39 General appearance: Present: A&O X 3, pleasant, no acute distress, answers questions appropriately - Head Head exam: Present: atraumatic, normocephalic - Eye Eye exam: Present: PERRL, conjuntiva pink, sclera anicteric Pupils: Present: PERRL - Neck Neck exam general surgery: Present: supple, trachea midline. Absent: lymphadenopathy - Respiratory Respiratory exam: Present: CTAB. Absent: accessory muscle use, rales, rhonchi, wheezes - Cardiovascular Cardiovascular exam: Present: RRR, +S1, +S2. Absent: diastolic murmur, gallop, rubs, systolic murmur - GI/Abdominal GI/Abdominal exam: Present: normal bowel sounds, soft, no peritoneal signs. Absent: distended, tenderness - Extremities Exam Extremities exam: Present: warm, radial pulses palpable and symmetrical. Absent : calf tenderness, cyanotic, pedal edema Additional comments: Left upper limb extremity swollen. - Neurological Exam Neurological exam: Present: CN II-XII intact, oriented X3, no focal deficits. Absent: pronater drift, facial droop, speech deficit - Skin Skin exam: Present: dry, intact Internal Medicine: Result - Labs CBC & Chem 7: 09/11/17 03:37 09/11/17 03:37 Labs: Short CBC 09/10/17 Range/Units 06:28 WBC 14.3 H D (4.3-11.1) K/mcL Hgb 10.4 L (12.9-16.9) g/dL Hct 29.0 L (37.5-50.1) % Plt Count 261 (140-400) K/mcL Neutrophils # 12.2 H (1.6-8.9) K/mcL BMP 09/10/17 06:28 Sodium 123 L Potassium 4.8 H Chloride 90 L Carbon Dioxide 19 BUN 9 Creatinine 0.56 L Glucose 129 H Calcium 7.7 L - ABG Interpretation ABG results: PT/INR, D-dimer PT 10.4 Seconds (9.4-12.1) 09/09/17 03:11 - Impressions Impressions Fluoroscopy 09/09/17 22:16 IMPRESSION: Intraprocedural fluoroscopic spot images as above. See separate procedure report for more information. D/ / Jose Escalante MD / Jose Escalante MD Interpreting Provider: Jose Escalante MD Hip X-Ray 09/09/17 22:16 IMPRESSION: Intraprocedural fluoroscopic spot images as above. See separate procedure report for more information. D/ / Jose Escalante MD / Jose Escalante MD Interpreting Provider: Jose Escalante MD - VTE Documentation of Mechanical Device: Intermittent pneumatic compression device Consult Discharge Plan - Plan Referrals: Riley Boggs [Family Provider] -
[2017-09-10] MEDS: *HR* Enoxaparin 40 MG/0.4 ML SYRINGE SQ SCH (17:22)
--- NOTE | 2017-09-10 18:05 | Orthopedics Progress Note ---
Date of Encounter: 09/10/17 Time of Encounter: 18:01 Subjective Principal diagnosis: Left hip and wrist fractures Interval history: 09/10/2017. Patient is postoperative day #1 IM nailing left hip and ORIF left wrist fracture. Having anticipated soreness and pain, wrist more so than hip. Denies neurovascular complaints. Vital signs are stable. Patient is afebrile. Hemoglobin is stable. Hip incisions are clean and dry. Wrist dressings are intact though they had been loosened. Patient does have a marked amount of edema in the hand. Neurovascular exam is normal. Fashion: POD #1 IM nailing left hip and ORIF left distal radius fractures, status stable. Recommendation: Patient can continue weightbearing as tolerated on the left lower extremity with use of a platform walker on the left upper extremity with no weight across the left wrist. Recommend short-term rehabilitation stay upon discharge. Orthopedic status is stable. Objective Vital signs: Vital Signs Temp Pulse Resp BP Pulse Ox 09/10/17 15:39 98.8 F 104 16 129/70 93 09/10/17 12:07 98.5 F 101 18 152/75 92 09/10/17 06:54 98.5 F 98 14 150/76 93 09/10/17 05:30 97.7 F 91 16 151/81 95 09/10/17 04:30 97.6 F 97 15 167/79 98 09/10/17 03:30 97.7 F 91 16 165/84 93 09/10/17 03:00 97.7 F 93 15 150/87 94 09/10/17 02:22 97.6 F 92 16 164/88 96 09/10/17 02:15 97.6 F 89 15 160/84 97 09/10/17 01:55 97.5 F L 93 15 169/91 94 09/10/17 01:39 100 16 160/71 96 09/10/17 01:29 97.2 F L 99 16 154/87 97 09/10/17 01:19 101 16 158/83 93 09/10/17 01:09 112 18 168/88 93 09/10/17 00:59 97.0 F L 173/96 93 09/09/17 19:12 98.0 F 112 17 188/90 97 Intake and Output 09/10/17 09/10/17 09/10/17 07:59 15:59 23:59 Intake Total 350 / 350 530 / 530 Output Total 905 / 905 1300 / 1300 250 / 250 Balance -555 / -555 -770 / -770 -250 / -250 Intake: IV Fluids 50 / 50 Cleocin Premix 900 MG/50 ML 900 50 / 50 mg In 50 ml @ 50 mls/hr IVPB Q8HR KATIE Rx#:[id number] Oral 350 / 350 480 / 480 Output: Urine 800 / 800 1300 / 1300 250 / 250 Estimated Blood Loss 105 / 105 Other: Meal Lunch Percent of Meal Consumed 25% Blood Glucose* 133 - Labs CBC & BMP: 09/10/17 06:28 09/10/17 06:28 Labs: Abnormal lab results WBC 14.3 K/mcL (4.3-11.1) H D 09/10/17 06:28 RBC 3.30 M/mcL (4.19-5.50) L 09/10/17 06:28 Hgb 10.4 g/dL (12.9-16.9) L 09/10/17 06:28 Hct 29.0 % (37.5-50.1) L 09/10/17 06:28 MCHC 35.9 g/dL (31.6-35.5) H 09/10/17 06:28 RDW 14.6 % (11.5-14.5) H 09/10/17 06:28 Neutrophils # 12.2 K/mcL (1.6-8.9) H 09/10/17 06:28 Sodium 123 mEq/L (136-145) L 09/10/17 06:28 Potassium 4.8 mEq/L (3.5-4.5) H 09/10/17 06:28 Chloride 90 mEq/L (98-109) L 09/10/17 06:28 Creatinine 0.56 mg/dL (0.72-1.25) L 09/10/17 06:28 Glucose 129 mg/dL (70-99) H 09/10/17 06:28 POC Glucose 133 (58-89) H 09/10/17 01:51 Calculated Osmolality 256 (280-300) L 09/10/17 06:28 Calcium 7.7 mg/dL (8.6-10.8) L 09/10/17 06:28 Magnesium 1.4 mg/dL (1.6-2.6) L 09/10/17 06:28 Ethyl Alcohol 175 mg/dL (0-10) H 09/09/17 03:11 - VTE Documentation of Mechanical Device: Intermittent pneumatic compression device Consult Discharge Plan - Plan Referrals: Riley Boggs [Family Provider] -
[2017-09-11] MEDS: *HR* OxyCODONE Immed Rel 5 MG TABLET PO PRN ×4 (00:32→20:13)
[2017-09-11 03:54] LABS: Basophils % 0.3 %; Eosinophils % 0.3 %; Hematocrit 26.1 % (37.5-50.1); Hemoglobin 9.5 g/dL (12.9-16.9); Immature Granulocytes % 0.8 % (0-4); Lymphocytes # 1.5 K/mcL (0.6-4.6); Lymphocytes % 12.3 %; Mean Corpuscular HGB Conc 36.4 g/dL (31.6-35.5); Mean Corpuscular Hemoglobin 32.5 pg (28.0-33.3); Mean Corpuscular Volume 89.4 fL (83.0-100.0); Mean Platelet Volume 9.9 fL (9.4-12.4); Monocytes # 1.9 K/mcL (0.0-1.3); Monocytes % 15.7 %; Neutrophils # 8.3 K/mcL (1.6-8.9); Platelet Count 237 K/mcL (140-400); Red Blood Count 2.92 M/mcL (4.19-5.50); Red Cell Distribution Width 14.6 % (11.5-14.5); Segmented Neutrophils % 70.6 %
[2017-09-11 04:09] LABS: BUN/Creatinine Ratio 11 (6-26); Blood Urea Nitrogen 6 mg/dL (8-26); Calcium 7.8 mg/dL (8.6-10.8); Carbon Dioxide 24 mEq/L (19-29); Chloride 91 mEq/L (98-109); Glucose 105 mg/dL (70-99); Magnesium 1.7 mg/dL (1.6-2.6); Osmolality,Calculated 250 (280-300); Sodium 121 mEq/L (136-145); eGFR For African Americans > 60 (> 60); eGFR For Non-African Americans > 60 (> 60)
[2017-09-11] MEDS: Folic Acid 1 MG TABLET PO SCH (09:42)
[2017-09-11] MEDS: Nicotine 21 MG PATCH.TD24 TD SCH (09:42)
[2017-09-11] MEDS: Metoprolol XL (24 HR) Succ 25 MG TAB.ER.24H PO SCH (09:44)
[2017-09-11] MEDS: Thiamine (B-1) 100 MG TABLET PO SCH (09:45)
--- NOTE | 2017-09-11 14:27 | Orthopedics Progress Note ---
Date of Encounter: 09/11/17 Time of Encounter: 14:24 Subjective Principal diagnosis: Left hip and wrist fractures Interval history: 09/10/2017. Patient is postoperative day #1 IM nailing left hip and ORIF left wrist fracture. Having anticipated soreness and pain, wrist more so than hip. Denies neurovascular complaints. Vital signs are stable. Patient is afebrile. Hemoglobin is stable. Hip incisions are clean and dry. Wrist dressings are intact though they had been loosened. Patient does have a marked amount of edema in the hand. Neurovascular exam is normal. Fashion: POD #1 IM nailing left hip and ORIF left distal radius fractures, status stable. Recommendation: Patient can continue weightbearing as tolerated on the left lower extremity with use of a platform walker on the left upper extremity with no weight across the left wrist. Recommend short-term rehabilitation stay upon discharge. Orthopedic status is stable. 09/11/2017. Patient is POD #2 IM nailing left hip and ORIF left wrist. He is doing better. Denies any neurovascular complaints. Vital signs are stable. Patient is afebrile. In the globe and has dropped slightly to 9.5. Platelet count remains normal. Sodium continues to remain low. Hip incision is clean and dry. Left wrist dressings are dry. Swelling is stable in the hand and fingers. Neurovascular exam is intact. Impression: #1. IM nailing left hip #2. ORIF left distal radius, POD #2 for both surgeries, status stable Recommendations: Orthopedic status is stable. As noted prior patient can continue weightbearing as tolerated on the left lower extremity with a platform walker with no weight going across the left wrist. The left hip dressing requires no care. He can shower with an intact dressing. The left wrist dressing does not need to be changed either, unless there is a problem with it showing drainage. Does need to be kept clean dry and elevated. If patient is discharged, we will need to see him back in the office in about 2 weeks' time or sooner should any problems arise. Objective Vital signs: Vital Signs Temp Pulse Resp BP Pulse Ox 09/11/17 09:53 98.7 F 96 18 134/68 98 09/11/17 06:37 98.5 F 108 16 127/76 96 09/11/17 03:11 98.2 F 101 17 130/71 95 09/10/17 23:53 98.2 F 102 18 131/70 95 09/10/17 20:16 98.5 F 108 19 130/74 94 09/10/17 15:39 98.8 F 104 16 129/70 93 Intake and Output 09/10/17 09/11/17 09/11/17 23:59 07:59 15:59 Intake Total 800 / 800 200 / 200 Output Total 900 / 900 800 / 800 50 / 50 Balance -100 / -100 -600 / -600 -50 / -50 Intake: Oral 800 / 800 200 / 200 Output: Urine 900 / 900 800 / 800 50 / 50 Other: Weight 75.5 kg Patient Weight 09/11/17 23:59 Weight 75.5 kg - Labs CBC & BMP: 09/11/17 03:37 09/11/17 03:37 Labs: Abnormal lab results WBC 11.8 K/mcL (4.3-11.1) H 09/11/17 03:37 RBC 2.92 M/mcL (4.19-5.50) L 09/11/17 03:37 Hgb 9.5 g/dL (12.9-16.9) L 09/11/17 03:37 Hct 26.1 % (37.5-50.1) L 09/11/17 03:37 MCHC 36.4 g/dL (31.6-35.5) H 09/11/17 03:37 RDW 14.6 % (11.5-14.5) H 09/11/17 03:37 Monocytes # 1.9 K/mcL (0.0-1.3) H 09/11/17 03:37 Sodium 121 mEq/L (136-145) L 09/11/17 03:37 Chloride 91 mEq/L (98-109) L 09/11/17 03:37 BUN 6 mg/dL (8-26) L 09/11/17 03:37 Creatinine 0.54 mg/dL (0.72-1.25) L 09/11/17 03:37 Glucose 105 mg/dL (70-99) H 09/11/17 03:37 POC Glucose 133 (58-89) H 09/10/17 01:51 Calculated Osmolality 250 (280-300) L 09/11/17 03:37 Calcium 7.8 mg/dL (8.6-10.8) L 09/11/17 03:37 Ethyl Alcohol 175 mg/dL (0-10) H 09/09/17 03:11 - VTE Documentation of Mechanical Device: Intermittent pneumatic compression device Consult Discharge Plan - Plan Referrals: Riley Boggs [Family Provider] -
[2017-09-11] MEDS: Ondansetron 4 MG/2 ML VIAL IVP PRN (16:01)
--- NOTE | 2017-09-11 17:09 | Internal Med Progress Note ---
Date of Encounter: 09/11/17 Time of Encounter: 17:08 - Assessment and plan (1) Fracture, intertrochanteric, left femur Current Visit: Yes Status: Acute Assessment and plan: Postoperative day one. Patient is comfortable. We will follow the recommendations from orthopedics. 09/11/2017 Postoperative day 2. Patient is comfortable. Seen by orthopedics. From orthopedic standpoint patient can go home. Patient is to follow-up with orthopedics in 2 weeks. 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 Qualifiers: Encounter type: subsequent encounter Fracture type: closed Fracture alignment: displaced Fracture healing: with routine healing Qualified Code(s ): S72.142D - Displaced intertrochanteric fracture of left femur, subsequent encounter for closed fracture with routine healing (2) Fracture of left distal radius Current Visit: Yes Status: Acute Assessment and plan: See above Qualifiers: Encounter type: initial encounter Fracture type: closed Fracture morphology: unspecified fracture morphology Qualified Code(s): S52.502A - Unspecified fracture of the lower end of left radius, initial encounter for closed fracture (3) Alcoholism Current Visit: Yes Status: Acute Assessment and plan: Patient is not in a withdrawal symptoms. We will continue to closely monitor this patient. (4) COPD (chronic obstructive pulmonary disease) Current Visit: Yes Status: Acute Assessment and plan: Stable COPD. He is not in exacerbation of COPD. Qualifiers: COPD type: chronic bronchitis Chronic bronchitis type: unspecified Qualified Code(s): J42 - Unspecified chronic bronchitis - Subjective Interval history: Patient seen and examined. Chart reviewed. Patient came from surgery today. Postoperative day one. 09/11/2017 Patient seen and examined. Chart reviewed. Patient is comfortably lying in the bed. Patient denies any pain. - Constitutional Vitals: Temp Pulse Resp BP Pulse Ox 99 F 101 14 161/77 93 09/11/17 15:59 09/11/17 15:59 09/11/17 15:59 09/11/17 15:59 09/11/17 15:59 General appearance: Present: A&O X 3, pleasant, no acute distress, answers questions appropriately - Head Head exam: Present: atraumatic, normocephalic - Eye Eye exam: Present: PERRL, conjuntiva pink, sclera anicteric Pupils: Present: PERRL - Neck Neck exam general surgery: Present: supple, trachea midline. Absent: lymphadenopathy - Respiratory Respiratory exam: Present: CTAB. Absent: accessory muscle use, rales, rhonchi, wheezes - Cardiovascular Cardiovascular exam: Present: RRR, +S1, +S2. Absent: diastolic murmur, gallop, rubs, systolic murmur - GI/Abdominal GI/Abdominal exam: Present: normal bowel sounds, soft, no peritoneal signs. Absent: distended, tenderness - Extremities Exam Extremities exam: Present: warm, radial pulses palpable and symmetrical. Absent : calf tenderness, cyanotic, pedal edema - Neurological Exam Neurological exam: Present: CN II-XII intact, oriented X3, no focal deficits. Absent: pronater drift, facial droop, speech deficit - Skin Skin exam: Present: dry, intact Internal Medicine: Result - Labs CBC & Chem 7: 09/11/17 03:37 09/11/17 03:37 Labs: Short CBC 09/11/17 Range/Units 03:37 WBC 11.8 H (4.3-11.1) K/mcL Hgb 9.5 L (12.9-16.9) g/dL Hct 26.1 L (37.5-50.1) % Plt Count 237 (140-400) K/mcL Neutrophils # 8.3 (1.6-8.9) K/mcL BMP 09/11/17 03:37 Sodium 121 L Potassium 4.0 Chloride 91 L Carbon Dioxide 24 BUN 6 L Creatinine 0.54 L Glucose 105 H Calcium 7.8 L - ABG Interpretation ABG results: PT/INR, D-dimer PT 10.4 Seconds (9.4-12.1) 09/09/17 03:11 - VTE Documentation of Mechanical Device: Intermittent pneumatic compression device Consult Discharge Plan - Plan Referrals: Riley Boggs [Family Provider] -
[2017-09-11] MEDS: *HR* Enoxaparin 40 MG/0.4 ML SYRINGE SQ SCH (17:24)
[2017-09-12] MEDS: *HR* OxyCODONE Immed Rel 5 MG TABLET PO PRN ×2 (04:54→09:51)
[2017-09-12 05:00] LABS: Basophils % 0.2 %; Eosinophils % 0.4 %; Hematocrit 24.1 % (37.5-50.1); Hemoglobin 8.6 g/dL (12.9-16.9); Immature Granulocytes % 0.8 % (0-4); Lymphocytes # 0.9 K/mcL (0.6-4.6); Lymphocytes % 9.4 %; Mean Corpuscular HGB Conc 35.7 g/dL (31.6-35.5); Mean Corpuscular Hemoglobin 31.7 pg (28.0-33.3); Mean Corpuscular Volume 88.9 fL (83.0-100.0); Mean Platelet Volume 10.1 fL (9.4-12.4); Monocytes # 1.3 K/mcL (0.0-1.3); Neutrophils # 7.6 K/mcL (1.6-8.9); Platelet Count 213 K/mcL (140-400); Red Blood Count 2.71 M/mcL (4.19-5.50); Red Cell Distribution Width 14.7 % (11.5-14.5); Segmented Neutrophils % 76.2 %
[2017-09-12 05:12] LABS: BUN/Creatinine Ratio 15 (6-26); Blood Urea Nitrogen 8 mg/dL (8-26); Calcium 7.9 mg/dL (8.6-10.8); Carbon Dioxide 27 mEq/L (19-29); Chloride 92 mEq/L (98-109); Glucose 97 mg/dL (70-99); Magnesium 1.7 mg/dL (1.6-2.6); Osmolality,Calculated 256 (280-300); Potassium 3.6 mEq/L (3.5-4.5); Sodium 124 mEq/L (136-145); eGFR For African Americans > 60 (> 60); eGFR For Non-African Americans > 60 (> 60)
[2017-09-12] MEDS: Metoprolol XL (24 HR) Succ 25 MG TAB.ER.24H PO SCH (09:04)
[2017-09-12] MEDS: Folic Acid 1 MG TABLET PO SCH (09:04)
[2017-09-12] MEDS: Nicotine 21 MG PATCH.TD24 TD SCH (09:04)
[2017-09-12] MEDS: Thiamine (B-1) 100 MG TABLET PO SCH (09:04)
[2017-09-12 10:40] VITALS: BP 139/86
--- NOTE | 2017-09-12 13:08 | Physician Discharge Referral ---
<David Linares - Last Filed: 09/12/17 13:05> [facility] Referral Info Transfer To: [facility] Provider in Charge after Transfer: PCP Institutional Level of Care: Skilled - Diagnosis (1) Fracture, intertrochanteric, left femur Priority: Primary Status: Acute (2) Fracture of left distal radius Priority: Primary Status: Acute (3) Alcoholism Priority: Primary Status: Acute (4) COPD (chronic obstructive pulmonary disease) Priority: Secondary Status: Acute (5) Hyponatremia Priority: Primary Status: Acute - Transfer Medications Prescriptions: OxyCODONE Immed Rel [Roxicodone 5 MG] 5 mg PO Q6HR PRN #5 tablet PRN Reason: Pain Home Medications: Ipratropium/Albuterol Sulfate [Combivent Respimat Inhal [place]] 1 puff IH QID 10/26 [History] Loratadine [Allergy Relief] 10 mg PO DAILY 09/09/17 [History] Metoprolol Succinate 25 mg PO DAILY 09/09/17 [History] Montelukast [Singulair] 10 mg PO DAILY 09/09/17 [History] Ranitidine HCl [Acid Global Account Manager] 150 mg PO BID 09/09/17 [History] Simvastatin [Zocor] 40 mg PO HS 09/09/17 [History] OxyCODONE Immed Rel [Roxicodone 5 MG] 5 mg PO Q6HR PRN #5 tablet 09/12/17 [Rx] Allergies/Adverse Reactions: 3 Allergy/AdvReac Type Severity Reaction Status Date / Time Penicillins Allergy See Verified 09/09/17 09:16 Comments - Respiratory Orders Smoking Cessation: Smoking cessation has been advised. For more information, call the [place] Tobacco Quit Line at 8-935-BFIM-NOW. - Ancillary Orders May use pressure relief devices daily prn, May consult with Dentist, Scrummaster, Safety Compliance Specialist PRN - Advance Directives Living Will: No Power of Ingredient Specialist: No Code Status: Full Code - Rehabiliation Orders Rehab Potential: Good Rehab Orders: ROM Exercises, Evaluation for Physical Therapy, Evaluation for Occupational Therapy - Treatments Skin tear care topically daily PRN per policy, Fleet enema rectally every other day PRN cleansing purposes - Diet Orders No Added Salt (KINGS) CERTIFICATION: I certify that the transfer of the above named patient to an Extended Care Facility is necessary for the continuing treatment of the diagnosis listed. The above information is true and accurate reflection of patient's current condition. Confidential - Redisclosure prohibited without a patient's written consent. <Alberto Mendoza - Last Filed: 09/12/17 17:16> - Respiratory Orders Smoking Cessation: Smoking cessation has been advised. For more information, call the [place] Tobacco Quit Line at 5-261-BNCGNOW. CERTIFICATION: I certify that the transfer of the above named patient to an Extended Care Facility is necessary for the continuing treatment of the diagnosis listed. The above information is true and accurate reflection of patient's current condition. Confidential - Redisclosure prohibited without a patient's written consent.
--- NOTE | 2017-09-12 13:13 | Discharge Summary ---
Date of Encounter: 09/12/17 Time of Encounter: 11:10 - Discharge Diagnosis (1) Fracture, intertrochanteric, left femur Priority: Primary Status: Acute Qualifiers: Encounter type: subsequent encounter Fracture type: closed Fracture alignment: displaced Fracture healing: with routine healing Qualified Code(s ): S72.142D - Displaced intertrochanteric fracture of left femur, subsequent encounter for closed fracture with routine healing (2) Fracture of left distal radius Priority: Primary Status: Acute Qualifiers: Encounter type: initial encounter Fracture type: closed Fracture morphology: unspecified fracture morphology Qualified Code(s): S52.502A - Unspecified fracture of the lower end of left radius, initial encounter for closed fracture (3) Alcoholism Priority: Primary Status: Acute (4) COPD (chronic obstructive pulmonary disease) Priority: Secondary Status: Acute Qualifiers: COPD type: chronic bronchitis Chronic bronchitis type: unspecified Qualified Code(s): J42 - Unspecified chronic bronchitis (5) Hyponatremia Priority: Primary Status: Acute - Discharge Medications Prescriptions: OxyCODONE Immed Rel [Roxicodone 5 MG] 5 mg PO Q6HR PRN #5 tablet PRN Reason: Pain Home Medications: Ipratropium/Albuterol Sulfate [Combivent Respimat Inhal [place]] 1 puff IH QID 10/26 [History] Loratadine [Allergy Relief] 10 mg PO DAILY 09/09/17 [History] Metoprolol Succinate 25 mg PO DAILY 09/09/17 [History] Montelukast [Singulair] 10 mg PO DAILY 09/09/17 [History] Ranitidine HCl [Acid Faculty Research Assistant] 150 mg PO BID 09/09/17 [History] Simvastatin [Zocor] 40 mg PO HS 09/09/17 [History] OxyCODONE Immed Rel [Roxicodone 5 MG] 5 mg PO Q6HR PRN #5 tablet 09/12/17 [Rx] Allergies/Adverse Reactions: 3 Allergy/AdvReac Type Severity Reaction Status Date / Time Penicillins Allergy See Verified 09/09/17 09:16 Comments Date of admission: 09/09/17 04:43 Primary care physician: PCP NONE Consults: 09/09/17 04:49 Consult to Ground Instructor Advanced [CONS] Routine Reason for SW Consult: alcohol hx 09/09/17 14:06 Consult to Cardiology [CONS] Routine Comment: Consulting Provider: Leeanna Canela Reason for Consult: ?Aflutter as EKG reading Call Completed: Yes 09/10/17 01:38 Consult to Occupational Therapy [CONS] Routine Comment: Evaluate, develop and implement POC Reason for Consult: ADLs, No Weight across L Wrist Consult to Physical Therapy [CONS] Routine Comment: Evaluate, develop and implement POC Reason for Consult: WBAT LLE Discharging clinician: David Linares Anticipated date of discharge: 09/12/17 - Patient Status Disposition: Transfer SNF Condition: Good Overall status at discharge: patient is progressing back to baseline - Discharge Instructions Instructions: Chronic Obstructive Pulmonary Disease (DC) Follow Up With: Riley Boggs [Family Provider] - Sterling Emerson DO [Non-Partnered Physician] - Additional Instructions: Follow-up with orthopedic surgery in 2 weeks as recommended - Diet and Activity Activity: as per physical therapy, increase activity as tolerated Diet: low salt diet, other (avoid alcohol) Interval History: Mr. Freed 67-year-old male with past medical history of COPD, GERD, hyperlipidemia, hypertension, alcoholism admitted to the hospital after a fall from standing while intoxicated resulting in left hip acute intracranial trochanteric fracture, left wrist complex communicated displaced intra- articular fracture. Upon further evaluation is also found to be hyponatremic with a sodium of 124 likely secondary to his chronic alcohol intake. Orthopedic surgery was consult, cardiology was consult of her preoperative cardiovascular examination with the EKG performed demonstrating tachycardia, without signs of ischemia. Patient was evaluated clear for surgery. Patient underwent IM nailing left hip and ORIF left wrist fracture, uncomplicated procedure. He remained stable throughout the remainder his inpatient stay. He is placed on CIWA protocol without signs of alcohol withdrawal. 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 His hyponatremia remained stable, without noticeable side effects. Patient remained stable and was seen and evaluated on 09/12/2017 deemed stable for discharge to SNF for continued care. Chronic anticoagulation for DVT prophylaxis was held as the patient has high risk for falls. Hospital course: Mr. Freed is a 67 year old male - Time Spent with Patient Total time spent providing and/or coordinating discharge services: - Constitutional Vitals: Temp Pulse Resp BP Pulse Ox 98.1 F 97 16 139/86 94 09/12/17 10:39 09/12/17 10:39 09/12/17 10:39 09/12/17 10:39 09/12/17 10:39 General appearance: Present: A&O X 3, pleasant, no acute distress, answers questions appropriately - Head Head exam: Present: atraumatic, normocephalic - Eye Eye exam: Present: PERRL, conjuntiva pink, sclera anicteric Pupils: Present: PERRL - Neck Neck exam general surgery: Present: supple, trachea midline. Absent: lymphadenopathy - Respiratory Respiratory exam: Present: CTAB. Absent: accessory muscle use, rales, rhonchi, wheezes - Cardiovascular Cardiovascular exam: Present: RRR, +S1, +S2. Absent: diastolic murmur, gallop, rubs, systolic murmur - GI/Abdominal GI/Abdominal exam: Present: normal bowel sounds, soft, no peritoneal signs. Absent: distended, tenderness - Extremities Exam Extremities exam: Present: pedal edema, warm, radial pulses palpable and symmetrical. Absent: calf tenderness, cyanotic Additional comments: Left wrist bandaged, neurovascularly intact, left lower extremity bandaged healing appropriately. - Neurological Exam Neurological exam: Present: CN II-XII intact, oriented X3, no focal deficits. Absent: pronater drift, facial droop, speech deficit - Skin Skin exam: Present: dry, intact - VTE Documentation of Mechanical Device: Intermittent pneumatic compression device
--- NOTE | 2017-09-13 07:23 | Electrocardiograph Report ---
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
== END 2017-09-12 14:55 | DRG 481 ==
LOC: 3NENU 01:37 → EMEROO 01:37 → 3NENU 04:41
PROVIDERS: ADMIT Internal Medicine Hematology & Oncology; ATTEND Family Medicine

== ENCOUNTER 2018-04-26 13:08 | Inpatient (IN) ==
[2018-04-26] MEDS ORDERED: 0.9 % Sodium Chloride 1,000 ML IVC ONE ×3 (13:25→16:42)
[2018-04-26] MEDS ORDERED: Isovue-370 500 ML INFUS..BTL IV ONE (13:26)
--- NOTE | 2018-04-26 13:27 | Emergency Department Note ---
Disposition Clinical Impression: NUNU (acute kidney injury) Sepsis Qualifiers: Sepsis type: sepsis due to unspecified organism Qualified Code(s): A41.9 - Sepsis, unspecified organism Umbilical hernia Qualifiers: Obstruction and gangrene presence: with obstruction but without gangrene Qualified Code(s): K42.0 - Umbilical hernia with obstruction, without gangrene Disposition: Admitted As Inpatient Condition: Fair Referrals: Virgilio Sanchez MD [Primary Care Provider] - Riley Boggs [Family Provider] - Forms: ED Satisfaction Letter Time of Disposition: 16:17 General Adult HPI - General Chief complaint: ED Nausea/Vomiting/Diarrhea Stated complaint: Possible Bowel Obstruction Time Seen by Provider: 04/26/18 13:23 Source: patient, EMS Mode of arrival: EMS Limitations: no limitations Nursing Notes Reviewed: Yes Vital Signs Reviewed: Yes - History of Present Illness HPI Narrative: Patient presenting to the ED if the chief complaint of abdominal pain and vomiting. States he has been throwing up for the last 48 hours. Just does not feel well. Denying any fever, chills, chest pain or shortness of breath. States he has not been able to keep anything down. He has had a previous ruptured appendicitis and states that his pain is diffuse and not localized. He has an umbilical hernia that he states has been chronic and is not any more tender, distended than usual. No problems peeing, no pain or swelling in his legs. Pain Scale: 10 - Related Data Home Medications Medication Instructions Recorded Confirmed Ipratropium/Albuterol Sulfate 1 puff IH QID 09/09/17 04/26/18 [Combivent Respimat Inhal [place]] Loratadine [Allergy Relief] 10 mg PO DAILY 09/09/17 04/26/18 Metoprolol Succinate 25 mg PO DAILY 09/09/17 04/26/18 Montelukast [Singulair] 10 mg PO DAILY 09/09/17 04/26/18 Ranitidine HCl [Acid [employer] Indirect [employer] Crewmember] 150 mg PO BID 09/09/17 04/26/18 Simvastatin [Zocor] 40 mg PO HS 09/09/17 04/26/18 Allergies Allergy/AdvReac Type Severity Reaction Status Date / Time Penicillins Allergy See Verified 04/10/18 12:50 Comments Review of Systems: As reviewed in the HPI. All other systems reviewed are negative or normal. Past Medical History - Past Medical History Attestation: Yes The following information was validated with the patient. Source: patient Medical history: Reports: COPD, GERD, hyperlipidemia, hypertension Surgical history: Reports: no surgical history Psychiatric history: Reports: no psych history - Social History Smoking Status: Current every day smoker Smokeless Tobacco Status: No Alcohol use: Reports: heavy Drug use: Reports: none Physical Exam - General Limitations: no limitations General appearance: alert, in no apparent distress - Head Head exam: atraumatic, normocephalic, normal inspection - ENT ENT exam: normal exam, normal oropharynx, mucous membranes dry - Neck Neck exam: Present: normal inspection, full ROM, trachea midline - Chest Chest inspection: Present: normal inspection, symmetric chest wall rise - Respiratory Respiratory exam: Present: normal lung sounds bilaterally - Cardiovascular Cardiovascular exam: Present: regular rate, normal rhythm, normal heart sounds - Abdominal Exam Abdominal exam: Present: soft, tenderness, distention, guarding, hernia ( Periumbilical hernia is mildly swollen and erythematous, but patient states this is chronic, minimally tender). Absent: rebound Abdominal tenderness: Present: RLQ - Extremities Exam Extremities exam: Present: normal inspection, full ROM. Absent: tenderness, pedal edema - Neurological Exam Neurological exam: Present: alert, oriented X3 - Psychiatric Psychiatric exam: Present: normal affect, normal mood - Skin Skin exam: Present: warm, dry, intact, normal color Course Course Narrative: Patient presents to the ED with nausea and vomiting. Has an umbilical hernia that he states is not any more distended or tender than usual. Concerned about a bowel infection. We will get labs and a CT. - Reevaluation(s) Reevaluation #1: Has a leukocytosis as well as an elevated lactic acid. prophylactically started on antibiotics and give him a fluid bolus in case this is an intra- abdominal infection. Still awaiting CT results. CT shows high-grade obstruction at the umbilical hernia. Will attempt reduction and consult surgery, Dr. Bess. Also will place NGT with viscous lidocaine, Afrin, and Cetacaine. Reevaluation #2: Dr. Bess down to evaluate patient. We did get the hernia reduced. Will admit to medicine with surgical consult. Will repeat imaging in the AM. Time: 16:10 Vital Signs Temperature 97.6 F 04/26/18 13:10 Pulse Rate 100 04/26/18 13:10 Respiratory Rate 16 04/26/18 13:10 Blood Pressure 83/48 04/26/18 13:10 O2 Sat by Pulse Oximetry 97 04/26/18 13:10 Temperature 97.6 F 04/26/18 13:10 Pulse Rate 100 04/26/18 17:21 Respiratory Rate 18 04/26/18 17:21 Blood Pressure 123/68 04/26/18 17:21 O2 Sat by Pulse Oximetry 94 04/26/18 17:21 Oxygen Delivery Oxygen Delivery Room Air Medical Decision Making - Medical Records Medical records reviewed: Yes I reviewed the patient's medical records. - Lab Data Lab results reviewed: Yes I reviewed the patient's lab results. Result diagrams: 04/26/18 13:34 04/26/18 13:34 Lab Results 04/26/18 04/26/18 04/26/18 Range/Units 13:34 13:34 13:34 WBC (4.3-11.1) K/mcL RBC (4.19-5.50) M/mcL Hgb (12.9-16.9) g/dL Hct (37.5-50.1) % MCV (83.0-100.0) fL MCH (28.0-33.3) pg MCHC (31.6-35.5) g/dL RDW (11.5-14.5) % Plt Count (140-400) K/mcL MPV (9.4-12.4) fL Immature Gran % (0-4) % Seg Neutrophils % % Lymphocytes % % Monocytes % % Eosinophils % % Basophils % % Neutrophils # (1.6-8.9) K/mcL Lymphocytes # (0.6-4.6) K/mcL Monocytes # (0.0-1.3) K/mcL Eosinophils # (0.0-0.6) K/mcL Basophils # (0.0-0.2) K/mcL PT 13.2 H (9.4-12.1) Seconds INR 1.2 APTT 31.1 (26.0-36.0) Seconds Sodium (136-145) mEq/L Potassium (3.5-5.1) mEq/L Chloride (98-107) mEq/L Carbon Dioxide (23-29) mEq/L BUN (8-23) mg/dL Creatinine (0.70-1.30) mg/dL Est GFR ( Amer) (> 60) Est GFR (Non-Af Amer) (> 60) BUN/Creatinine Ratio (6-26) Glucose (70-105) mg/dL Calculated Osmolality (280-300) Lactic Acid 3.7 H (0.5-2.2) mmol/L Calcium (8.6-10.3) mg/dL Total Bilirubin (0.3-1.0) mg/dL Direct Bilirubin (0.0-0.2) mg/dL Indirect Bilirubin (0.0-1.2) mg/dL AST (13-39) Units/L ALT (7-52) Units/L Alkaline Phosphatase (34-104) Units/L Troponin I 0.05 H* (< 0.04) ng/mL Serum Total Protein (6.4-8.9) g/dL Albumin (3.5-5.7) g/dL Globulin (2.4-3.5) g/dL Albumin/Globulin Ratio (1.1-2.2) Lipase (11-82) Units/L 04/26/18 04/26/18 04/26/18 Range/Units 13:34 13:34 15:44 WBC 23.5 H (4.3-11.1) K/mcL RBC 4.75 (4.19-5.50) M/mcL Hgb 15.0 (12.9-16.9) g/dL Hct 41.1 (37.5-50.1) % MCV 86.5 (83.0-100.0) fL MCH 31.6 (28.0-33.3) pg MCHC 36.5 H (31.6-35.5) g/dL RDW 14.4 (11.5-14.5) % Plt Count 538 H (140-400) K/mcL MPV 9.9 (9.4-12.4) fL Immature Gran % 0.9 (0-4) % Seg Neutrophils % 86.3 % Lymphocytes % 4.4 % Monocytes % 8.1 % Eosinophils % 0.0 % Basophils % 0.3 % Neutrophils # 20.3 H (1.6-8.9) K/mcL Lymphocytes # 1.0 (0.6-4.6) K/mcL Monocytes # 1.9 H (0.0-1.3) K/mcL Eosinophils # 0.0 (0.0-0.6) K/mcL Basophils # 0.1 (0.0-0.2) K/mcL PT (9.4-12.1) Seconds INR APTT (26.0-36.0) Seconds Sodium 127 L (136-145) mEq/L Potassium 4.4 (3.5-5.1) mEq/L Chloride 77 L (98-107) mEq/L Carbon Dioxide 28 (23-29) mEq/L BUN 46 H (8-23) mg/dL Creatinine 2.79 H (0.70-1.30) mg/dL Est GFR ( Amer) 28 L (> 60) Est GFR (Non-Af Amer) 23 L (> 60) BUN/Creatinine Ratio 16 (6-26) Glucose 136 H (70-105) mg/dL Calculated Osmolality 278 L (280-300) Lactic Acid 4.6 H* (0.5-2.2) mmol/L Calcium 9.6 (8.6-10.3) mg/dL Total Bilirubin 0.7 (0.3-1.0) mg/dL Direct Bilirubin 0.3 H (0.0-0.2) mg/dL Indirect Bilirubin 0.4 (0.0-1.2) mg/dL AST 12 L (13-39) Units/L ALT 15 (7-52) Units/L Alkaline Phosphatase 136 H (34-104) Units/L Troponin I (< 0.04) ng/mL Serum Total Protein 8.3 (6.4-8.9) g/dL Albumin 4.4 (3.5-5.7) g/dL Globulin 3.9 H (2.4-3.5) g/dL Albumin/Globulin Ratio 1.1 (1.1-2.2) Lipase 8 L (11-82) Units/L - Radiology Data Radiology results reviewed: Yes I reviewed the patient's radiology results. - EKG Data EKG #1 EKG attestation: Yes I reviewed and interpreted this EKG. EKG results narrative: Sinus tach, rate 108, normal intervals, normal axis, diffuse ST segment depression, but no acute ischemic changes S.B.A.R. - S.B.A.R. Situation: Demographics, MOA Background: Presenting Complaint, Relevant PMH, Meds, & Allergies Assessment: Vital Signs, Course and respsone to treatment, Exam Concerns, Patient/Family Expectation, Pertinant Lab Results, Outstanding Labs Recommendation: Barrier(s) to disposition, Recommendation based on pending studies, treatments, or consults [place] Report Given to: Dr. Thuy Barahona Repor Time: 17:36
[2018-04-26 13:44] LABS: Basophils # 0.1 K/mcL (0.0-0.2); Basophils % 0.3 %; Hematocrit 41.1 % (37.5-50.1); Immature Granulocytes % 0.9 % (0-4); Lymphocytes % 4.4 %; Mean Corpuscular HGB Conc 36.5 g/dL (31.6-35.5); Mean Corpuscular Hemoglobin 31.6 pg (28.0-33.3); Mean Corpuscular Volume 86.5 fL (83.0-100.0); Mean Platelet Volume 9.9 fL (9.4-12.4); Monocytes # 1.9 K/mcL (0.0-1.3); Monocytes % 8.1 %; Neutrophils # 20.3 K/mcL (1.6-8.9); Platelet Count 538 K/mcL (140-400); Red Blood Count 4.75 M/mcL (4.19-5.50); Red Cell Distribution Width 14.4 % (11.5-14.5); Segmented Neutrophils % 86.3 %
[2018-04-26 13:53] LABS: INR 1.2; Prothrombin Time 13.2 Seconds (9.4-12.1)
[2018-04-26 13:56] LABS: Activated Partial Thrombo Time 31.1 Seconds (26.0-36.0)
[2018-04-26 14:20] LABS: Albumin 4.4 g/dL (3.5-5.7); Albumin/Globulin Ratio 1.1 (1.1-2.2); Bilirubin,Direct 0.3 mg/dL (0.0-0.2); Bilirubin,Indirect 0.4 mg/dL (0.0-1.2); Bilirubin,Total 0.7 mg/dL (0.3-1.0); Calcium 9.6 mg/dL (8.6-10.3); Globulin 3.9 g/dL (2.4-3.5); Potassium 4.4 mEq/L (3.5-5.1); Total Protein 8.3 g/dL (6.4-8.9)
[2018-04-26] MEDS ORDERED: MetroNIDAZOLE 500 MG/100 ML 500 MG/100 ML BAG IVPB ONE (15:00)
[2018-04-26] MEDS ORDERED: Levofloxacin 750 MG/150 ML 750 MG/150 ML BAG IVPB ONE (15:00)
[2018-04-26] MEDS ORDERED: *HR* Morphine 2 MG/ML SYRINGE IVP ONE (15:58)
[2018-04-26] MEDS ORDERED: *HR* FentaNYL (PF) 100 MCG/2 ML VIAL IVP ONE ×2 (15:58→17:35)
[2018-04-26] MEDS ORDERED: Ondansetron 4 MG/2 ML VIAL IVP ONE (15:58)
[2018-04-26] MEDS ORDERED: *HR* Midazolam HCl 2 MG/2 ML VIAL IVP ONE (16:01)
[2018-04-26] MEDS ORDERED: Tetracaine/Benzocaine/Butamben 200MG/SPRAY (100SPY/BOT) MM ONE (16:12)
[2018-04-26] MEDS ORDERED: Oxymetazoline Nasal SPRAY BOTTLE NS ONE (16:12)
[2018-04-26] MEDS ORDERED: Lidocaine Viscous Oral Soln 15 ML SOLUTION MM STA (16:12)
--- NOTE | 2018-04-26 18:15 | Internal Med History&Physical ---
Date of Encounter: 04/26/18 Time of Encounter: 18:15 Internal Medicine - H&P: HPI History of present illness: 67-year-old male presented to ED because of abdominal pain, nausea, and vomiting NB/NB emesis. Pain is mostly around an umbilical hernia which he has had for a few years. Umbilical hernia region is tender to palpation. He denies fevers, diarrhia, dyruria, chest pain, SOB. In the ED, A CT of abdomen showed high-grade small-bowel obstruction with transition point in the ubmilical hernia. His initial EKG diffuse ST segment depression that did not have any ischemic findings. He has no cardiac or pulm complaints. Denies CP, SOB, diaphoresis, numbness/tingling. He received IV Fentanyl and Versed and the hernia was reduced. He was also given IV fluids. Surgery was consulted in ED and patient was seen in the ED by Dr. Bess. An NG tube was placed, with plan for follow up imaging tomorrow. On my assessment patient states his pain has improved with medication. Otherwise no other complaints. Past Med Surg Social Fam HX - Past Medical History Medical history: COPD, GERD, hyperlipidemia, hypertension Additional medical history: polio Psychiatric history: no psych history - Past Surgical History Surgical History: no surgical history Additional surgical history: right hip repair - Social History Smoking Status: Current every day smoker Smokeless Tobacco Status: No Alcohol use: heavy Drug use: none - Family History Mother Hx Family Cardiac Disorders: Yes (sister) Hx Family Respiratory Disorders: Yes (asthma) Hx Family Cancer: No Hx Family GI Disorders: No Hx Family Endocrine Disorder: No Hx Family Neuromuscular Disorders: No Hx Family Neurologic Disorders: No Hx Family HEENT Disorders: No Hx Family Autoimmune Disorders: No Internal Medicine - H&P: Meds Ipratropium/Albuterol Sulfate [Combivent Respimat Inhal [place]] 1 puff IH QID 10/26 [History] Loratadine [Allergy Relief] 10 mg PO DAILY 09/09/17 [History] Metoprolol Succinate 25 mg PO DAILY 09/09/17 [History] Montelukast [Singulair] 10 mg PO DAILY 09/09/17 [History] Ranitidine HCl [Acid Hub Borer] 150 mg PO BID 09/09/17 [History] Simvastatin [Zocor] 40 mg PO HS 09/09/17 [History] 3 Allergy/AdvReac Type Severity Reaction Status Date / Time Penicillins Allergy See Verified 04/10/18 12:50 Comments All Systems PM: A 10-system review of systems was performed and is negative for pertinent findings except as documented above in the HPI. - Constitutional Constitutional: no fever(s) - EENT Eyes: no change in vision, no discharge, no pain, no photophobia Ears: no ear discharge, no ear pain, no tinnitus Nose, mouth and throat: no dysphagia, no nasal discharge, no neck pain, no sore throat - Respiratory Respiratory: no cough, no dyspnea, no wheezing, no excessive phlegm production - Gastrointestinal Gastrointestinal: abdominal pain, vomiting - Genitourinary Genitourinary ROS male: as per HPI - Musculoskeletal Musculoskeletal ROS IM: no numbness, no tingling - Integumentary Additional comments: umbilical hernia local tenderness - Constitutional Vitals: Temp Pulse Resp BP Pulse Ox 97.6 F 100 18 123/68 94 04/26/18 13:10 04/26/18 17:21 04/26/18 17:21 04/26/18 17:21 04/26/18 17:21 - Head Head exam: Present: atraumatic, normocephalic - Eye Eye exam: Present: PERRL, conjuntiva pink, sclera anicteric Pupils: Present: PERRL - Neck Neck exam general surgery: Present: supple, trachea midline. Absent: lymphadenopathy - Respiratory Respiratory exam: Present: CTAB. Absent: accessory muscle use, rales, rhonchi, wheezes - Cardiovascular Cardiovascular exam: Present: RRR, +S1, +S2. Absent: diastolic murmur, gallop, rubs, systolic murmur - GI/Abdominal GI/Abdominal exam: Present: normal bowel sounds, soft, no peritoneal signs. Absent: distended, tenderness Additional comments: umbilical hernia with tenderness and erythema of surrounding skin. No purulent drainage. - Extremities Exam Extremities exam: Present: warm, radial pulses palpable and symmetrical. Absent : calf tenderness, cyanotic, pedal edema - Neurological Exam Neurological exam: Present: CN II-XII intact, oriented X3, no focal deficits. Absent: pronater drift, facial droop, speech deficit - Skin Skin exam: Present: dry, intact Internal Med - H&P Results - Labs CBC & Chem 7: 07/18/18 13:34 04/26/18 13:34 Labs: Short CBC 04/26/18 Range/Units 13:34 WBC 23.5 H (4.3-11.1) K/mcL Hgb 15.0 (12.9-16.9) g/dL Hct 41.1 (37.5-50.1) % Plt Count 538 H (140-400) K/mcL Neutrophils # 20.3 H (1.6-8.9) K/mcL BMP 04/26/18 13:34 Sodium 127 L Potassium 4.4 Chloride 77 L Carbon Dioxide 28 BUN 46 H Creatinine 2.79 H Glucose 136 H Calcium 9.6 Cardiac Enzymes 04/26/18 Range/Units 13:34 Troponin I 0.05 H* (< 0.04) ng/mL Liver Function 04/26/18 Range/Units 13:34 Total Bilirubin 0.7 (0.3-1.0) mg/dL Direct Bilirubin 0.3 H (0.0-0.2) mg/dL AST 12 L (13-39) Units/L ALT 15 (7-52) Units/L Alkaline Phosphatase 136 H (34-104) Units/L Albumin 4.4 (3.5-5.7) g/dL - Impressions ITS Impressions Abdomen/Pelvis CT 04/26/18 14:59 IMPRESSION: High-grade small-bowel obstruction with transition point in the umbilical hernia . D/ / Radha Yuan MD / Radha Yuan MD Interpreting Provider: Radha Yuan MD - Assessment and plan (1) Lactic acidosis Current Visit: Yes Status: Acute Assessment and plan: Could be from hypoperfusion, if sepsis or unrelated hypotensive episode seen in ED. Surgery seen patient in ED and reduced hernia. Patient being given IVF. -Continue IV fluids -Will cycle LA until normal. (2) Abnormal EKG Current Visit: Yes Status: Acute Assessment and plan: Showed diffusely depressed ST segments without ischemic change it. It is difficult for me to appreciate on EKG. Patient does a lot of physical stress with the umbilical hernia obstruction and will repeat EKG to reassess. He denies chest pain, SOB. - Repeat EKG in AM - Cycle troponin, last level was 0.05. (3) DVT prophylaxis Current Visit: Yes Status: Acute Assessment and plan: Heparin SQ (4) NUNU (acute kidney injury) Current Visit: Yes Status: Acute Assessment and plan: CrCl currently 25. Possibly if related to infection this would be Sepsis of an unknown source. Avoid nephrotoxic medications Renally dose all medications Obtain FENa for further evaluation, in case this is not pre renal cause. If no significant improvement, would consider Nephrology consult. (5) Umbilical hernia Current Visit: Yes Status: Acute Qualifiers: Obstruction and gangrene presence: with obstruction but without gangrene Qualified Code(s): K42.0 - Umbilical hernia with obstruction, without gangrene (6) COPD (chronic obstructive pulmonary disease) Current Visit: No Status: Acute Assessment and plan: not in acute exacerbation Qualifiers: COPD type: chronic bronchitis Chronic bronchitis type: unspecified Qualified Code(s): J42 - Unspecified chronic bronchitis (7) Hyponatremia Current Visit: No Status: Acute Assessment and plan: Will replace with Normal Saline Checking FENa (8) SIRS (systemic inflammatory response syndrome) Current Visit: Yes Status: Acute Assessment and plan: - 2 SIRS criteria on admission. Lactic acidoses and episodes of hypotension were present in ED requiring IV fluids - Unsure if this is genuinely infection or a stress reaction. Possible sources would be intra abdominal, or cellulitis around umbilical area. UA and CXR ordered as screening. Will not continue Levaquin, will start Cipro renally dosed along with Flagyl. - Follow-up blood cultures, urinalysis, chest x-ray - If this is not true infection these can be discontinued. (9) Small bowel obstruction Current Visit: Yes Status: Acute Assessment and plan: Transition point is at level of umbilical hernia. Dr. Colon of Surgery reduced the hernia down in the ED. An NG tube was inserted, and they plan to re evaluate patient tomorrow. - Time Spent With Patient Total time spent is greater than 50% in coordination of care (as documented) at patient's floor/unit and/or counseling patient:
[2018-04-26] MEDS ORDERED: Ipratropium/Albuterol Neb 3 ML IH PRN (18:17)
[2018-04-26] MEDS ORDERED: *HR* Metoprolol 5 MG/5 ML VIAL IVP PRN (18:17)
[2018-04-26] MEDS ORDERED: Naloxone 0.4 MG/ML INJ IVP PRN (18:23)
[2018-04-26] MEDS ORDERED: (Ipratropium/Albuterol Sulfate [Combivent Respimat In IH SCH (21:00)
[2018-04-26] MEDS ORDERED: Famotidine 20 MG TABLET PO SCH (21:00)
[2018-04-26] MEDS: 0.9 % Sodium Chloride 1,000 ML IVC SCH (21:14)
--- NOTE | 2018-04-26 21:19 | Emergency Department Note ---
Disposition Clinical Impression: NUNU (acute kidney injury) Sepsis Qualifiers: Sepsis type: sepsis due to unspecified organism Qualified Code(s): A41.9 - Sepsis, unspecified organism Umbilical hernia Qualifiers: Obstruction and gangrene presence: with obstruction but without gangrene Qualified Code(s): K42.0 - Umbilical hernia with obstruction, without gangrene Disposition: Admitted As Inpatient Condition: Fair Abdominal Pain HPI - General Chief Complaint: ED Nausea/Vomiting/Diarrhea Stated Complaint: Possible Bowel Obstruction Time Seen by Provider: 04/26/18 13:23 Source: patient, EMS Mode of arrival: EMS - History of Present Illness Pt Subjective Complaint: abdominal pain Pain Scale: 0 - Related Data Home Medications Medication Instructions Recorded Confirmed Ipratropium/Albuterol Sulfate 1 puff IH QID 09/09/17 04/26/18 [Combivent Respimat Inhal [place]] Loratadine [Allergy Relief] 10 mg PO DAILY 09/09/17 04/26/18 Metoprolol Succinate 25 mg PO DAILY 09/09/17 04/26/18 Montelukast [Singulair] 10 mg PO DAILY 09/09/17 04/26/18 Ranitidine HCl [Acid Lehr Operator] 150 mg PO BID 09/09/17 04/26/18 Simvastatin [Zocor] 40 mg PO HS 09/09/17 04/26/18 Allergies Allergy/AdvReac Type Severity Reaction Status Date / Time Penicillins Allergy See Verified 04/10/18 12:50 Comments Abdominal Pain PMH - Past Medical History Medical history: Reports: COPD, GERD, hyperlipidemia, hypertension Male Surgical History: Reports: orthopedic, other, other Psychiatric history: Reports: no psych history - Social History Smoking status: Former smoker Alcohol use: Reports: heavy Drug use: Reports: none Physical Exam - General Limitations: no limitations General appearance: alert, in no apparent distress Course Vital Signs Temperature 97.6 F 04/26/18 13:10 Pulse Rate 100 04/26/18 13:10 Respiratory Rate 16 04/26/18 13:10 Blood Pressure 83/48 04/26/18 13:10 O2 Sat by Pulse Oximetry 97 04/26/18 13:10 Temperature 98.1 F 04/26/18 20:41 Pulse Rate 115 04/26/18 20:41 Respiratory Rate 17 04/26/18 20:41 Blood Pressure 128/60 04/26/18 20:41 O2 Sat by Pulse Oximetry 93 04/26/18 20:41 Oxygen Delivery Oxygen Delivery Room Air Abdominal Pain - Lab Data Result diagrams: 04/26/18 13:34 04/26/18 13:34 Lab Results 04/26/18 04/26/18 04/26/18 Range/Units 13:34 13:34 13:34 WBC (4.3-11.1) K/mcL RBC (4.19-5.50) M/mcL Hgb (12.9-16.9) g/dL Hct (37.5-50.1) % MCV (83.0-100.0) fL MCH (28.0-33.3) pg MCHC (31.6-35.5) g/dL RDW (11.5-14.5) % Plt Count (140-400) K/mcL MPV (9.4-12.4) fL Immature Gran % (0-4) % Seg Neutrophils % % Lymphocytes % % Monocytes % % Eosinophils % % Basophils % % Neutrophils # (1.6-8.9) K/mcL Lymphocytes # (0.6-4.6) K/mcL Monocytes # (0.0-1.3) K/mcL Eosinophils # (0.0-0.6) K/mcL Basophils # (0.0-0.2) K/mcL PT 13.2 H (9.4-12.1) Seconds INR 1.2 APTT 31.1 (26.0-36.0) Seconds Sodium (136-145) mEq/L Potassium (3.5-5.1) mEq/L Chloride (98-107) mEq/L Carbon Dioxide (23-29) mEq/L BUN (8-23) mg/dL Creatinine (0.70-1.30) mg/dL Est GFR ( Amer) (> 60) Est GFR (Non-Af Amer) (> 60) BUN/Creatinine Ratio (6-26) Glucose (70-105) mg/dL Calculated Osmolality (280-300) Lactic Acid 3.7 H (0.5-2.2) mmol/L Calcium (8.6-10.3) mg/dL Total Bilirubin (0.3-1.0) mg/dL Direct Bilirubin (0.0-0.2) mg/dL Indirect Bilirubin (0.0-1.2) mg/dL AST (13-39) Units/L ALT (7-52) Units/L Alkaline Phosphatase (34-104) Units/L Troponin I 0.05 H* (< 0.04) ng/mL Serum Total Protein (6.4-8.9) g/dL Albumin (3.5-5.7) g/dL Globulin (2.4-3.5) g/dL Albumin/Globulin Ratio (1.1-2.2) Lipase (11-82) Units/L 04/26/18 04/26/18 04/26/18 Range/Units 13:34 13:34 15:44 WBC 23.5 H (4.3-11.1) K/mcL RBC 4.75 (4.19-5.50) M/mcL Hgb 15.0 (12.9-16.9) g/dL Hct 41.1 (37.5-50.1) % MCV 86.5 (83.0-100.0) fL MCH 31.6 (28.0-33.3) pg MCHC 36.5 H (31.6-35.5) g/dL RDW 14.4 (11.5-14.5) % Plt Count 538 H (140-400) K/mcL MPV 9.9 (9.4-12.4) fL Immature Gran % 0.9 (0-4) % Seg Neutrophils % 86.3 % Lymphocytes % 4.4 % Monocytes % 8.1 % Eosinophils % 0.0 % Basophils % 0.3 % Neutrophils # 20.3 H (1.6-8.9) K/mcL Lymphocytes # 1.0 (0.6-4.6) K/mcL Monocytes # 1.9 H (0.0-1.3) K/mcL Eosinophils # 0.0 (0.0-0.6) K/mcL Basophils # 0.1 (0.0-0.2) K/mcL PT (9.4-12.1) Seconds INR APTT (26.0-36.0) Seconds Sodium 127 L (136-145) mEq/L Potassium 4.4 (3.5-5.1) mEq/L Chloride 77 L (98-107) mEq/L Carbon Dioxide 28 (23-29) mEq/L BUN 46 H (8-23) mg/dL Creatinine 2.79 H (0.70-1.30) mg/dL Est GFR ( Amer) 28 L (> 60) Est GFR (Non-Af Amer) 23 L (> 60) BUN/Creatinine Ratio 16 (6-26) Glucose 136 H (70-105) mg/dL Calculated Osmolality 278 L (280-300) Lactic Acid 4.6 H* (0.5-2.2) mmol/L Calcium 9.6 (8.6-10.3) mg/dL Total Bilirubin 0.7 (0.3-1.0) mg/dL Direct Bilirubin 0.3 H (0.0-0.2) mg/dL Indirect Bilirubin 0.4 (0.0-1.2) mg/dL AST 12 L (13-39) Units/L ALT 15 (7-52) Units/L Alkaline Phosphatase 136 H (34-104) Units/L Troponin I (< 0.04) ng/mL Serum Total Protein 8.3 (6.4-8.9) g/dL Albumin 4.4 (3.5-5.7) g/dL Globulin 3.9 H (2.4-3.5) g/dL Albumin/Globulin Ratio 1.1 (1.1-2.2) Lipase 8 L (11-82) Units/L 04/26/18 04/26/18 04/26/18 Range/Units 17:44 19:02 19:02 WBC (4.3-11.1) K/mcL RBC (4.19-5.50) M/mcL Hgb (12.9-16.9) g/dL Hct (37.5-50.1) % MCV (83.0-100.0) fL MCH (28.0-33.3) pg MCHC (31.6-35.5) g/dL RDW (11.5-14.5) % Plt Count (140-400) K/mcL MPV (9.4-12.4) fL Immature Gran % (0-4) % Seg Neutrophils % % Lymphocytes % % Monocytes % % Eosinophils % % Basophils % % Neutrophils # (1.6-8.9) K/mcL Lymphocytes # (0.6-4.6) K/mcL Monocytes # (0.0-1.3) K/mcL Eosinophils # (0.0-0.6) K/mcL Basophils # (0.0-0.2) K/mcL PT (9.4-12.1) Seconds INR APTT (26.0-36.0) Seconds Sodium (136-145) mEq/L Potassium (3.5-5.1) mEq/L Chloride (98-107) mEq/L Carbon Dioxide (23-29) mEq/L BUN (8-23) mg/dL Creatinine (0.70-1.30) mg/dL Est GFR ( Amer) (> 60) Est GFR (Non-Af Amer) (> 60) BUN/Creatinine Ratio (6-26) Glucose (70-105) mg/dL Calculated Osmolality (280-300) Lactic Acid 1.7 2.0 (0.5-2.2) mmol/L Calcium (8.6-10.3) mg/dL Total Bilirubin (0.3-1.0) mg/dL Direct Bilirubin (0.0-0.2) mg/dL Indirect Bilirubin (0.0-1.2) mg/dL AST (13-39) Units/L ALT (7-52) Units/L Alkaline Phosphatase (34-104) Units/L Troponin I 0.04 H* (< 0.04) ng/mL Serum Total Protein (6.4-8.9) g/dL Albumin (3.5-5.7) g/dL Globulin (2.4-3.5) g/dL Albumin/Globulin Ratio (1.1-2.2) Lipase (11-82) Units/L Attestation Statement - Attestation Attestation: I examined this patient and my medical decision-making was reviewed with the Resident Physician. I agree with the documented findings, disposition and treatment plan as described except to the extent set forth below. 67-year-old male presents ED because of abdominal pain and vomiting. He complains of abdominal distention today today. He also has pain around her umbilical hernia. No fevers. No diarrhea. No dysuria. No chest pain or dyspnea. Patient appears very uncomfortable intermittently vomiting. Chest is clear bilaterally. Abdomen distended with hyperactive bowel sounds. There is erythema around the skin of an umbilical hernia which is very tender to palpation. CT of the abdomen consistent with small bowel obstruction with transition point at the umbilical hernia. Patient received IV fentanyl as well as IV Versed and was able to reduce the umbilical hernia. NG tube was placed for decompression of the stomach and he will be admitted to medicine with ongoing IV fluids, pain control and repeat imaging tomorrow. He was seen in the ED by Dr. Bess
[2018-04-26 22:08] LABS: Bilirubin,Urine Moderate (Negative); Blood,Urine Small (Negative); Clarity,Urine Turbid (Clear); Color,Urine Dark Yellow (Yellow); Glucose,Urine (UA) Normal (Normal); Ketones,Urine Trace mg/dL (Negative); Leukocyte Esterase,Urine Trace (Negative); Nitrite,Urine Negative (Negative); PH,Urine 5.5 pH Units (5.0-8.0); Protein,Urine 100 mg/dL (Neg-Trace); Specific Gravity,Urine 1.022 (1.010-1.025); Urobilinogen,Urine Normal (Normal)
[2018-04-26 22:10] LABS: RBC,Urine 0-3 per hpf (0-3); Squamous Epithelial Cell,Urine Many per lpf (None-Few)
[2018-04-26 22:28] LABS: Sodium, Urine 23.7 mEq/L
[2018-04-26 22:33] LABS: Bacteria,Urine Moderate per hpf (None-Few); Granular Casts,Urine Few per lpf (None Seen); Hyaline Casts,Urine Few per lpf (None-Few); Mucus,Urine Many (Few); Renal Epithelial Cells,Urine Few per hpf (None-Few); Yeast,Urine Many per hpf (None Seen)
[2018-04-26] MEDS: MetroNIDAZOLE 500 MG/100 ML 500 MG/100 ML BAG IVPB SCH (23:07)
[2018-04-27] MEDS: Pantoprazole 40 MG VIAL IVP SCH ×2 (05:05→18:07)
[2018-04-27] MEDS: *HR* Heparin 5,000 UNIT/ML VIAL SQ SCH ×2 (05:05→18:07)
[2018-04-27 05:46] LABS: Adenovirus Not Detected (Not Detect); Bordetella Pertussis Not Detected (Not Detect); Chlamydophila pneumoniae Not Detected (Not Detect); Coronavirus 229E Not Detected (Not Detect); Coronavirus HKU1 Not Detected (Not Detect); Coronavirus NL63 Not Detected (Not Detect); Coronavirus OC43 Not Detected (Not Detect); Human Metapneumovirus Not Detected (Not Detect); Human Rhinovirus/Enterovirus Not Detected (Not Detect); Influenza A Subtype 2009 H1 Not Detected (Not Detect); Influenza A Untypeable Not Detected (Not Detect); Influenza B Not Detected (Not Detect); Mycoplasma pneumoniae Not Detected (Not Detect); Parainfluenza Virus 1 Not Detected (Not Detect); Parainfluenza Virus 2 Not Detected (Not Detect); Parainfluenza Virus 3 Not Detected (Not Detect); Parainfluenza Virus 4 Not Detected (Not Detect); Respiratory Syncytial Virus Not Detected (Not Detect)
[2018-04-27 07:01] LABS: Basophils % 0.2 %; Hematocrit 35.3 % (37.5-50.1); Immature Granulocytes % 0.6 % (0-4); Lymphocytes # 0.7 K/mcL (0.6-4.6); Lymphocytes % 5.5 %; Mean Corpuscular HGB Conc 35.1 g/dL (31.6-35.5); Mean Corpuscular Hemoglobin 30.5 pg (28.0-33.3); Mean Corpuscular Volume 86.9 fL (83.0-100.0); Mean Platelet Volume 10.1 fL (9.4-12.4); Monocytes % 13.2 %; Platelet Count 441 K/mcL (140-400); Red Blood Count 4.06 M/mcL (4.19-5.50); Red Cell Distribution Width 14.6 % (11.5-14.5); Segmented Neutrophils % 80.5 %
[2018-04-27 07:13] LABS: Calcium 8.5 mg/dL (8.6-10.3); Potassium 3.5 mEq/L (3.5-5.1)
[2018-04-27 07:31] LABS: Hemoglobin 12.4 g/dL (12.9-16.9); Monocytes # 1.7 K/mcL (0.0-1.3); Neutrophils # 10.1 K/mcL (1.6-8.9)
[2018-04-27] MEDS: 0.9 % Sodium Chloride 1,000 ML IVC SCH (07:38)
[2018-04-27] MEDS: MetroNIDAZOLE 500 MG/100 ML 500 MG/100 ML BAG IVPB SCH ×2 (07:38→16:36)
[2018-04-27 07:51] LABS: Platelet Estimate Normal (Normal)
[2018-04-27] MEDS ORDERED: Loratadine 10 MG TABLET PO SCH (09:00)
[2018-04-27] MEDS ORDERED: Metoprolol XL (24 HR) Succ 25 MG TAB.ER.24H PO SCH (09:00)
[2018-04-27] MEDS ORDERED: Albuterol 2.5 MG/3 ML NEBULIZER IH PRN (09:59)
--- NOTE | 2018-04-27 11:10 | General Surgery Progress Note ---
Date of Encounter: 04/27/18 Time of Encounter: 10:30 - Assessment and Plan (1) Umbilical hernia Current Visit: Yes Status: Acute Given simethicone for bloating. Nothing by mouth Encourage spirometry and Surgery will continue monitoring patient's status. Qualifiers: Obstruction and gangrene presence: with obstruction but without gangrene Qualified Code(s): K42.0 - Umbilical hernia with obstruction, without gangrene Subjective Patient reports: no new complaints, still having pain, flatus, no bowel movement , nausea Narrative: 67-year-old male presenting with abdominal pain, bloating, nausea, and vomiting. Pain is located on umbilical hernia which is had for several years. The site is mildly erythematous and nonreducible. He was given a CT abdomen which showed small bowel obstruction at the level of the umbilical hernia. Has not had a bowel movment since Tuesday, but is passing gas. Last meal was on Tuesday. Objective Vital Signs - Last 8 Hours Temp Pulse Resp BP Pulse Ox 04/27/18 11:03 97.0 F L 98 115/65 90 04/27/18 07:26 98.6 F 104 17 116/54 91 04/27/18 03:51 97.9 F 107 18 110/79 90 Intake and Output 04/26/18 04/27/18 04/27/18 23:59 07:59 15:59 Intake Total 200 / 2450 1100 / 1100 Output Total 250 / 250 1550 / 1550 40 / 40 Balance -50 / 2200 -450 / -450 -40 / -40 Intake: IV Fluids 200 / 200 1100 / 1100 0.9 % Sodium Chloride 1,000 ML 1000 / 1000 @ 100 mls/hr IVC .Q10H KAT[facility] Rx#: [id number] Cipro Premix 400 MG/200 ML 400 200 / 200 mg In 200 ml @ 200 mls/hr IVPB Q24H KATIE Rx#:[id number] Flagyl Premix 500 MG/100 ML 500 100 / 100 mg In 100 ml @ 100 mls/hr IVPB Q8HR KATIE Rx#:[id number] Output: Urine 450 / 450 40 / 40 Gastric Drainage 250 / 250 1100 / 1100 Other: Weight 66.8 kg 67.2 kg Blood Glucose* 124 128 Patient Weight 04/27/18 23:59 Weight 67.2 kg - General physical appearance well developed, well nourished, moderate distress - Cardiovascular Cardiovascular exam: Present: RRR, no murmurs/rubs/gallops - Abdomen Abdomen: Present: distended, tender Abdominal Tenderness: diffusely (around umibllical hernia) Hernia: umbilical - Labs 04/27/18 05:17 04/27/18 05:17 Diabetes panel 04/27/18 Range/Units 05:17 Sodium 135 L (136-145) mEq/L Potassium 3.5 (3.5-5.1) mEq/L Chloride 87 L (98-107) mEq/L Carbon Dioxide 32 H (23-29) mEq/L BUN 58 H (8-23) mg/dL Creatinine 2.82 H (0.70-1.30) mg/dL Glucose 126 H (70-105) mg/dL Calcium 8.5 L (8.6-10.3) mg/dL Calcium panel 04/27/18 Range/Units 05:17 Calcium 8.5 L (8.6-10.3) mg/dL Pituitary panel 04/27/18 Range/Units 05:17 Sodium 135 L (136-145) mEq/L Potassium 3.5 (3.5-5.1) mEq/L Chloride 87 L (98-107) mEq/L Carbon Dioxide 32 H (23-29) mEq/L BUN 58 H (8-23) mg/dL Creatinine 2.82 H (0.70-1.30) mg/dL Glucose 126 H (70-105) mg/dL Calcium 8.5 L (8.6-10.3) mg/dL Adrenal panel 04/27/18 Range/Units 05:17 Sodium 135 L (136-145) mEq/L Potassium 3.5 (3.5-5.1) mEq/L Chloride 87 L (98-107) mEq/L Carbon Dioxide 32 H (23-29) mEq/L BUN 58 H (8-23) mg/dL Creatinine 2.82 H (0.70-1.30) mg/dL Glucose 126 H (70-105) mg/dL Calcium 8.5 L (8.6-10.3) mg/dL Consult Discharge Plan - Plan Referrals: Virgilio Sanchez MD [Primary Care Provider] - 05/08/18 10:45 am
[2018-04-27] MEDS: Ipratropium/Albuterol Neb 3 ML IH SCH ×3 (11:37→20:04)
[2018-04-27] MEDS ORDERED: Simethicone 80 MG TAB.CHEW PO PRN (12:17)
--- NOTE | 2018-04-27 12:23 | General Surg History&Physical ---
Date of Encounter: 04/27/18 Time of Encounter: 10:00 Assessment and Plan (1) Umbilical hernia Current Visit: Yes Status: Acute Given simethicone for bloating. Nothing by mouth Encourage spirometry and Surgery will continue monitoring patient's status. Qualifiers: Obstruction and gangrene presence: with obstruction but without gangrene Qualified Code(s): K42.0 - Umbilical hernia with obstruction, without gangrene History of Present Illness Chief complaint: Abdominal Pain HPI: 67-year-old male presenting with abdominal pain, bloating, nausea, and vomiting. Pain is located on umbilical hernia which is had for several years. The site is mildly erythematous and nonreducible. He was given a CT abdomen which showed small bowel obstruction at the level of the umbilical hernia. Has not had a bowel movment since Tuesday, but is passing gas. Last meal was on Tuesday. Past Med Surg Social Fam HX - Past Medical History Medical history: COPD, GERD, hyperlipidemia, hypertension Additional medical history: polio Psychiatric history: no psych history - Past Surgical History Surgical History: no surgical history Additional surgical history: right hip repair - Social History Smoking Status: Current every day smoker Smokeless Tobacco Status: No Alcohol use: heavy Drug use: none - Family History Mother History Unknown: Yes Hx Family Cardiac Disorders: Yes (sister) Hx Family Respiratory Disorders: Yes (asthma) Hx Family Cancer: No Hx Family GI Disorders: No Hx Family Endocrine Disorder: No Hx Family Neuromuscular Disorders: No Hx Family Neurologic Disorders: No Hx Family HEENT Disorders: No Hx Family Autoimmune Disorders: No Medications and Allergies Ipratropium/Albuterol Sulfate [Combivent Respimat Inhal [place]] 1 puff IH QID 10/26 [History] Loratadine [Allergy Relief] 10 mg PO DAILY 09/09/17 [History] Metoprolol Succinate 25 mg PO DAILY 09/09/17 [History] Montelukast [Singulair] 10 mg PO DAILY 09/09/17 [History] Ranitidine HCl [Acid Hot Top Liner Helper] 150 mg PO BID 09/09/17 [History] Simvastatin [Zocor] 40 mg PO HS 09/09/17 [History] 3 Allergy/AdvReac Type Severity Reaction Status Date / Time Penicillins Allergy See Verified 04/10/18 12:50 Comments Review of Systems All systems PM: The remainder of the systems were reviewed and are negative - Constitutional as per HPI - Gastrointestinal abdominal pain, belching, bloating, change in bowel habits, diarrhea, nausea, vomiting General Surgery Exam Initial Vital Signs Temp Pulse Resp BP Pulse Ox 97.6 F 100 16 83/48 97 04/26/18 13:10 04/26/18 13:10 04/26/18 13:10 04/26/18 13:10 04/26/18 13:10 - General physical appearance well developed, well nourished, moderate distress - Respiratory normal expansion, normal respiratory effort - Cardiovascular Cardiovascular exam: Present: RRR, no murmurs/rubs/gallops - Abdomen Abdomen general surgery: Present: distended. Absent: non tender Hernia: Present: umbilical (tender and erythematous). Absent: reducible - Psychiatric Psychiatric general surgery: Present: A&Ox3, appropriate, oriented to person, oriented to place, oriented to time, speech is normal, memory intact Results - Labs 04/27/18 05:17 04/27/18 05:17 Abnormal lab results WBC 12.5 K/mcL (4.3-11.1) H 04/27/18 05:17 RBC 4.06 M/mcL (4.19-5.50) L 04/27/18 05:17 Hgb 12.4 g/dL (12.9-16.9) L D 04/27/18 05:17 Hct 35.3 % (37.5-50.1) L 04/27/18 05:17 RDW 14.6 % (11.5-14.5) H 04/27/18 05:17 Plt Count 441 K/mcL (140-400) H 04/27/18 05:17 Neutrophils # 10.1 K/mcL (1.6-8.9) H 04/27/18 05:17 Monocytes # 1.7 K/mcL (0.0-1.3) H 04/27/18 05:17 PT 13.2 Seconds (9.4-12.1) H 04/26/18 13:34 Sodium 135 mEq/L (136-145) L 04/27/18 05:17 Chloride 87 mEq/L (98-107) L 04/27/18 05:17 Carbon Dioxide 32 mEq/L (23-29) H 04/27/18 05:17 BUN 58 mg/dL (8-23) H 04/27/18 05:17 Creatinine 2.82 mg/dL (0.70-1.30) H 04/27/18 05:17 Est GFR ( Amer) 27 (> 60) L 04/27/18 05:17 Est GFR (Non-Af Amer) 23 (> 60) L 04/27/18 05:17 Glucose 126 mg/dL (70-105) H 04/27/18 05:17 POC Glucose 119 mg/dL (70-99) H 04/27/18 00:24 Calcium 8.5 mg/dL (8.6-10.3) L 04/27/18 05:17 Direct Bilirubin 0.3 mg/dL (0.0-0.2) H 04/26/18 13:34 AST 12 Units/L (13-39) L 04/26/18 13:34 Alkaline Phosphatase 136 Units/L (34-104) H 04/26/18 13:34 Troponin I 0.04 ng/mL (< 0.04) H* 04/26/18 19:02 Globulin 3.9 g/dL (2.4-3.5) H 04/26/18 13:34 Lipase 8 Units/L (11-82) L 04/26/18 13:34 Urine Clarity Turbid (Clear) A 04/26/18 21:30 Urine Protein 100 mg/dL (Neg-Trace) H 04/26/18 21:30 Urine Ketones Trace mg/dL (Negative) H 04/26/18 21:30 Urine Blood Small (Negative) H 04/26/18 21:30 Urine Bilirubin Moderate (Negative) H 04/26/18 21:30 Ur Leukocyte Esterase Trace (Negative) H 04/26/18 21:30 Urine Microscopic WBC 5-15 per hpf (0-3) H 04/26/18 21:30 Ur Squamous Epith Cells Many per lpf (None-Few) H 04/26/18 21:30 Urine Bacteria Moderate per hpf (None-Few) H 04/26/18 21:30 Granular Casts Few per lpf (None Seen) H 04/26/18 21:30 Urine Mucus Many (Few) H 04/26/18 21:30 Urine Yeast Many per hpf (None Seen) H 04/26/18 21:30 Diabetes panel 04/27/18 Range/Units 05:17 Sodium 135 L (136-145) mEq/L Potassium 3.5 (3.5-5.1) mEq/L Chloride 87 L (98-107) mEq/L Carbon Dioxide 32 H (23-29) mEq/L BUN 58 H (8-23) mg/dL Creatinine 2.82 H (0.70-1.30) mg/dL Glucose 126 H (70-105) mg/dL Calcium 8.5 L (8.6-10.3) mg/dL Calcium panel 04/27/18 Range/Units 05:17 Calcium 8.5 L (8.6-10.3) mg/dL Pituitary panel 04/27/18 Range/Units 05:17 Sodium 135 L (136-145) mEq/L Potassium 3.5 (3.5-5.1) mEq/L Chloride 87 L (98-107) mEq/L Carbon Dioxide 32 H (23-29) mEq/L BUN 58 H (8-23) mg/dL Creatinine 2.82 H (0.70-1.30) mg/dL Glucose 126 H (70-105) mg/dL Calcium 8.5 L (8.6-10.3) mg/dL Adrenal panel 04/27/18 Range/Units 05:17 Sodium 135 L (136-145) mEq/L Potassium 3.5 (3.5-5.1) mEq/L Chloride 87 L (98-107) mEq/L Carbon Dioxide 32 H (23-29) mEq/L BUN 58 H (8-23) mg/dL Creatinine 2.82 H (0.70-1.30) mg/dL Glucose 126 H (70-105) mg/dL Calcium 8.5 L (8.6-10.3) mg/dL All other labs normal.
--- NOTE | 2018-04-27 13:07 | Cardiology Consult Note ---
<Heaven Rush - Last Filed: 04/27/18 13:17> Date of Encounter: 04/27/18 Time of Encounter: 12:00 Assessment and Plan (1) Abnormal EKG Current Visit: Yes Status: Acute Per cardiology: -ECG today with new T wave inversions noted in inferior and anterolateral leads. Not to have small bowel obstruction, NUNU. -Denies chest pain. -Of note, noted to be hypotensive on admssion. -No previous cardiac testing to review -Will check TTE. -Further recommendations pending TTE. (2) Elevated troponin Current Visit: Yes Status: Acute Per cardiology: -Troponins 0.05, 0.04 in the setting of NUNU, small bowel obstruction, ?sepsis, hypotension. -Denies chest pain -New T wave inversions noted, as above -Not on any oral medications due to NPO with NG tube to suction. -No previous cardiac testing to review. -DO not suspect NSTEMI. No cardiac rehab consult warranted at this time. -Will check TTE. Further recommendations pending TTE. Discussion w patient/family: The assessment and plan as outlined above was discussed with the patient who expressed understanding and agreement. All questions were answered. Thank you for involving us in the care of your patient. Please call with any questions. Discussed and reviewed with . History of Present Illness Consult date: 04/27/18 Requesting physician: Alvarado Arriaza Consult reason: ECG changes Chief complaint: nausea, abdominal pain History of present illness: Mr. Freed is a 67 year old male with a relevant past medical history of HTN, HLD, GERD, COPD who presented to [facility] with complaints of nausea, vomiting, and abdominal pain. Patient denies previous cardiac history. Denies chest pain or increased shortness of breath. Prior to this episode, patient denies increased fatigue. Past Med Surg Social Fam HX - Past Medical History Attestation: Yes The following information was validated with the patient. Source: patient, old records reviewed Medical history: COPD, GERD, hyperlipidemia, hypertension Additional medical history: polio Psychiatric history: no psych history - Past Surgical History Surgical History: no surgical history Additional surgical history: right hip repair - Social History Smoking Status: Current every day smoker Smokeless Tobacco Status: No Alcohol use: heavy Drug use: none - Family History Mother History Unknown: Yes Hx Family Cardiac Disorders: Yes (sister) Hx Family Respiratory Disorders: Yes (asthma) Hx Family Cancer: No Hx Family GI Disorders: No Hx Family Endocrine Disorder: No Hx Family Neuromuscular Disorders: No Hx Family Neurologic Disorders: No Hx Family HEENT Disorders: No Hx Family Autoimmune Disorders: No Medications and Allergies Ipratropium/Albuterol Sulfate [Combivent Respimat Inhal [place]] 1 puff IH QID 10/26 [History] Loratadine [Allergy Relief] 10 mg PO DAILY 09/09/17 [History] Metoprolol Succinate 25 mg PO DAILY 09/09/17 [History] Montelukast [Singulair] 10 mg PO DAILY 09/09/17 [History] Ranitidine HCl [Acid Galvanizer] 150 mg PO BID 09/09/17 [History] Simvastatin [Zocor] 40 mg PO HS 09/09/17 [History] 3 Allergy/AdvReac Type Severity Reaction Status Date / Time Penicillins Allergy See Verified 04/10/18 12:50 Comments All Systems Review: The remainder of the systems were reviewed and are negative - Cardiovascular Cardiovascular: as per HPI - Gastrointestinal Gastrointestinal: nausea Physical Examination Vital Signs, Last 4 Hours Temp Pulse Resp BP Pulse Ox 04/27/18 11:37 18 92 04/27/18 11:03 97.0 F L 98 115/65 90 General: Conversant, No Apparent Distress HEENT: Atraumatic, Normocephaly, Mucus Membranes Moist Neck: No JVD, Normal carotid pulses Cardiac: Reg Rate and Rhythm, Normal S1 and S2, No Murmur Lungs: Other (Lung sounds diminished throughout. ) Neuro: Alert and responsive, No focal deficits noted Abdomen: Other (Distended, firm. Tender. NG tube noted to suction. ) Skin: No rashes noted on visualized skin Musculoskeletal: No Chest Wall Tenderness Extremities: No Clubbing, No Cyanosis, No Edema, Normal Pulses Results 04/27/18 05:17 04/27/18 05:17 Lab Results Impressions Abdomen/Pelvis CT 04/26/18 14:59 IMPRESSION: High-grade small-bowel obstruction with transition point in the umbilical hernia . D/ / Radha Yuan MD / Radha Yuan MD Interpreting Provider: Radha Yuan MD Chest X-Ray 04/26/18 18:21 IMPRESSION: No acute findings. D/ / William Mayes / William Mayes Interpreting Provider: William Mayes Active Medications Albuterol Sulfate (Proventil Neb) 2.5 mg IH [id number] PRN; Protocol PRN Reason: Shortness Of Breath/Wheezing Stop: 10/27/18 10:00 Albuterol/Ipratropium (Duoneb) 3 ml IH [id number] KATIE Stop: 10/27/18 12:01 Last Admin: 04/27/18 11:37 Dose: 3 ml Heparin Sodium (Porcine) (Heparin) 5,000 unit SQ Q12HCO KATIE Stop: 10/27/18 06:01 Last Admin: 04/27/18 05:05 Dose: 5,000 unit Hydralazine HCl (Hydralazine) 10 mg IVP Q6HR PRN PRN Reason: Hypertension Stop: 10/26/18 21:51 Sodium Chloride (0.9 % Sodium Chloride) 1,000 mls @ 100 mls/hr IVC .Q10H [facility] Stop: 04/27/18 14:29 Last Admin: 04/27/18 07:38 Dose: 100 mls/hr Ciprofloxacin Lactate (Cipro Premix 400 Mg/200 Ml) 400 mg in 200 mls @ 200 mls/ hr IVPB Q24H KATIE Stop: 10/26/18 19:01 Last Infusion: 04/26/18 22:29 Dose: Infused Metronidazole (Flagyl Premix 500 Mg/100 Ml) 500 mg in 100 mls @ 100 mls/hr IVPB Q8HR KATIE Stop: 10/27/18 00:01 Last Infusion: 04/27/18 08:38 Dose: Infused Metoprolol Tartrate (Lopressor) 5 mg IVP Q6HR PRN PRN Reason: SEE COMMENTS Stop: 10/26/18 18:18 Naloxone HCl (Narcan) 0.4 mg IVP Q2MIN PRN PRN Reason: SEE COMMENTS Stop: 10/26/18 18:24 Pantoprazole Sodium (Protonix) 40 mg IVP Q12HR KATIE Stop: 10/27/18 06:01 Last Admin: 04/27/18 05:05 Dose: 40 mg Simethicone (Gas-X) 80 mg PO TID PRN PRN Reason: Dyspepsia Stop: 10/27/18 12:18 Laboratory Tests 09/12/17 04/10/18 04/26/18 04:34 13:15 13:34 WBC Hgb Creatinine 0.54 L 0.65 L Lactic Acid Troponin I 0.05 H* 04/26/18 04/26/18 04/26/18 13:34 13:34 15:44 WBC 23.5 H Hgb 15.0 Creatinine 2.79 H Lactic Acid 4.6 H* Troponin I 04/26/18 04/27/18 04/27/18 19:02 05:17 05:17 WBC 12.5 H Hgb 12.4 L D Creatinine 2.82 H Lactic Acid Troponin I 0.04 H* - Imaging and Cardiology Chest Xray: report reviewed Echo: pending - EKG Interpretation EKG results cardiology: personally reviewed (ECG with ST, HR 101. T wave inversions noted in inferior and lateral leads.), other (Telemetry reviewed with average HR previous 12 hours noted to be 106, ST. PVCs. Short runs of atrial tachycardia noted.) Consult Discharge Plan - Plan Referrals: Virgilio Sanchez MD [Primary Care Provider] - 05/08/18 10:45 am <Sterling Koenig - Last Filed: 05/01/18 11:11> Date of Encounter: 04/27/18 Time of Encounter: 19:00 - Attending Attestation I have personally performed a face to face evaluation on this patient. I have reviewed and agree with the care plan. History and Exam by me shows: CC: abdominal pain HPI: PT admitted through ER with complaints of abdominal pain, nausea, and emesis. Pt reports symptoms started approx two days ago and have been progressively worsening. He has been unable to hole food down for the last 12 hours. He has undergone initial evaluation with working diagnosis of small bowel obstruction, acute kidney injury, dehydration and possible sepsis. He denies chest pain, pressure or shortness of breath. An EKG was performed which showed new T wave inversions in inferior and anterolateral leads. He was also found to have minimally elevated troponins, .04 and .05. HE reports was in his usual state of health until last three days, able to perform all normal activites of daily living without symptoms of chest pain, pressure or shortness of breath ROS: reviewed PMH: reviewed PE: pt seen and examined, agree with findings as documented. IMP/Plan: 1. Elevated troponin: consistent with demand ischemia, continue to trend, will order echo to eval LV wall motion, further recommendations pending cardiac imaging. 2. Abnormal EKG: Inverted T waves inferior and anteriorlateral leads in partially upright EKG, recommend repeat study with pt lying flat when abdominal pain will allow. Assessment and Plan Discussion w patient/family: The assessment and plan as outlined above was discussed with the patient and/or family members who expressed understanding and agreement. All questions were answered. Thank you for involving us in the care of your patient. Please call with any questions. History of Present Illness History of present illness: Mr. Freed is a 67 year old male All Systems Review: The remainder of the systems were reviewed and are negative Physical Examination Vital Signs, Last 4 Hours Temp Pulse Resp BP Pulse Ox 05/01/18 08:10 18 96 05/01/18 07:11 98.7 F 103 20 152/79 97 Results 05/01/18 03:31 05/01/18 03:31 Lab Results 05/01/18 05/01/18 03:31 03:31 WBC 14.9 H Hgb 12.0 L Hct 35.8 L Plt Count 379 Sodium 139 Potassium 3.6 Chloride 101 Carbon Dioxide 29 BUN 25 H Creatinine 0.56 L Glucose 90 Calcium 8.5 L
--- NOTE | 2018-04-27 14:35 | Internal Med Progress Note ---
Date of Encounter: 04/27/18 Time of Encounter: 09:10 - Assessment and plan (1) Small bowel obstruction Current Visit: Yes Status: Acute Assessment and plan: SBO with transition point at umbilical hernia. Hernia reduced by surgery in ED. NG tube decompression. NPO for now. Surgery following. (2) COPD (chronic obstructive pulmonary disease) Current Visit: No Status: Acute Assessment and plan: Stable. not in exacerbation. Qualifiers: COPD type: chronic bronchitis Chronic bronchitis type: unspecified Qualified Code(s): J42 - Unspecified chronic bronchitis (3) Umbilical hernia Current Visit: Yes Status: Acute Assessment and plan: Umbilical hernia reduced in ED. NGT decompression currently for SBO. Abdomen soft, tenderness improved. Monitor clinically. Surgery following. Qualifiers: Obstruction and gangrene presence: with obstruction but without gangrene Qualified Code(s): K42.0 - Umbilical hernia with obstruction, without gangrene (4) Hyponatremia Current Visit: No Status: Acute Assessment and plan: Improving since admission with IVF. Na 135 this morning. Continue to monitor. (5) NUNU (acute kidney injury) Current Visit: Yes Status: Acute Assessment and plan: Unknown etiology. Possible pre-renal. UA with granular casts, likely ATN. IVF support. Nephrology consult if not improved in AM. Avoid nephrotoxic medications Renally dose all medications (6) Lactic acidosis Current Visit: Yes Status: Resolved Assessment and plan: Resolved (7) Abnormal EKG Current Visit: Yes Status: Acute Assessment and plan: Reported T wave depressions on presentation. EKG today with new t wave inversions with elevated troponins in setting of SBO and NUNU. Denies chest pain however. Evaluated by cardiology. For TTE and f/u recommendations. (8) SIRS (systemic inflammatory response syndrome) Current Visit: Yes Status: Acute Assessment and plan: - 2 SIRS criteria on admission. Lactic acidoses and episodes of hypotension were present in ED requiring IV fluids - Unsure if this is genuinely infection or a stress reaction. Possible sources would be intra abdominal, or cellulitis around umbilical area. Leukocytosis significantly improved. c/w Cipro and Flagyl for now. - Time Spent With Patient Total time spent is greater than 50% in coordination of care (as documented) at patient's floor/unit and/or counseling patient: - Subjective Interval history: Reports feeling better but abdomen reel tender and have discomfort from NGT. - Constitutional Vitals: Temp Pulse Resp BP Pulse Ox 97.0 F L 98 18 115/65 92 04/27/18 11:03 04/27/18 11:03 04/27/18 11:37 04/27/18 11:03 04/27/18 11:37 General: Alert and oriented. NGT in place. Skin: Normal color, no rash, no lesions. HEENT: EOMI, pupils equal, round and reactive. Cardiovascular: Regular rate, regular rythm. No murmurs appreciated. Lungs:Normal breath sounds, no wheezes or crackles. Abdomen:Soft, mild periumbilical tenderness. Distended abdomen. Extremities:No deformity, no edema or tenderness, no joint swelling or clubbing. Neurological:Normal cognition, no weakness, no numbness. Rest of the physical exam is non contributory Internal Medicine: Result - Labs CBC & Chem 7: 04/27/18 05:17 04/27/18 05:17 Labs: Short CBC 04/27/18 Range/Units 05:17 WBC 12.5 H (4.3-11.1) K/mcL Hgb 12.4 L D (12.9-16.9) g/dL Hct 35.3 L (37.5-50.1) % Plt Count 441 H (140-400) K/mcL Neutrophils # 10.1 H (1.6-8.9) K/mcL BMP 04/27/18 05:17 Sodium 135 L Potassium 3.5 Chloride 87 L Carbon Dioxide 32 H BUN 58 H Creatinine 2.82 H Glucose 126 H Calcium 8.5 L Urine 04/26/18 Range/Units 21:30 Urine Color Dark Yellow (Yellow) Urine Clarity Turbid A (Clear) Urine pH 5.5 (5.0-8.0) pH Units Ur Specific Orange 1.022 (1.010-1.025) Urine Protein 100 H (Neg-Trace) mg/dL Urine Glucose (UA) Normal (Normal) mg/dL - ABG Interpretation ABG results: PT/INR, D-dimer PT 13.2 Seconds (9.4-12.1) H 04/26/18 13:34 Consult Discharge Plan - Plan Referrals: Virgilio Sanchez MD [Primary Care Provider] - 05/08/18 10:45 am
--- NOTE | 2018-04-27 14:54 | General Surgery Consult Note ---
Date of Encounter: 04/27/18 Time of Encounter: 14:00 Assessment and Plan (1) Incarcerated incisional hernia Current Visit: Yes Status: Acute Continue NPO NG tube to LIWS IV fluids Serial abdominal exams Supportive care and pain control Risks, benefits, alternatives, and expected outcomes reviewed with the patient and he is in agreement to proceed to the operating room with Dr. Bess for a robotic-assisted incisional hernia repair with mesh in the next 24 hours. IS every 1 hour while awake (2) Small bowel obstruction Current Visit: Yes Status: Acute See plan for incarcerated incisional hernia (3) NUNU (acute kidney injury) Current Visit: Yes Status: Acute Cr- 2.79>2.82 IV fluids Strict I&Os Avoid nephrotoxic medications (4) Abnormal EKG Current Visit: Yes Status: Acute Plan for TTE Cardiology following for recommendations (5) Elevated troponin Current Visit: Yes Status: Acute Cardiology following for recommendations History of Present Illness Consult date: 04/27/18 Reason for consult: other (Incarcerated incisional hernia) Requesting physician: Ambrocio Lorenzana History of present illness: Patient presented to the ED yesterday with complaints of abdominal pain associated with an existing incisional hernia. The pain is focused around his hernia. He also reports episodes of nausea/vomiting. Denies any hematemesis or coffee ground emesis. He has had the hernia for approximately 3 years. He denies any fevers/chills. Denies any shortness of breath or chest pains. Denies any difficulty with urination. He did have a CT scan which shows evidence of an incisional hernia with high grade small bowel obstruction. His hernia was reduced in the ED per Dr. Bess. He was admitted for further treatment and follow-up. Past Med Surg Social Fam HX - Past Medical History Source: patient, old records reviewed Medical history: COPD, GERD, hyperlipidemia, hypertension Additional medical history: polio Psychiatric history: no psych history - Past Surgical History Surgical History: appendectomy (open- perforated appendicitis) Additional surgical history: right hip repair - Social History Smoking Status: Current every day smoker Smokeless Tobacco Status: No Alcohol use: heavy Drug use: none - Family History Mother History Unknown: Yes Hx Family Cardiac Disorders: Yes (sister) Hx Family Respiratory Disorders: Yes (asthma) Hx Family Cancer: No Hx Family GI Disorders: No Hx Family Endocrine Disorder: No Hx Family Neuromuscular Disorders: No Hx Family Neurologic Disorders: No Hx Family HEENT Disorders: No Hx Family Autoimmune Disorders: No Medications and Allergies Ipratropium/Albuterol Sulfate [Combivent Respimat Inhal [place]] 1 puff IH QID 10/26 [History] Loratadine [Allergy Relief] 10 mg PO DAILY 09/09/17 [History] Metoprolol Succinate 25 mg PO DAILY 09/09/17 [History] Montelukast [Singulair] 10 mg PO DAILY 09/09/17 [History] Ranitidine HCl [Acid [employer]] 150 mg PO BID 09/09/17 [History] Simvastatin [Zocor] 40 mg PO HS 09/09/17 [History] 3 Allergy/AdvReac Type Severity Reaction Status Date / Time Penicillins Allergy See Verified 04/10/18 12:50 Comments Review of Systems All systems PM: reviewed and no additional remarkable complaints except as stated (in the HPI) All systems PM: The remainder of the systems were reviewed and are negative General Surgery Exam Initial Vital Signs Temp Pulse Resp BP Pulse Ox 97.6 F 100 16 83/48 97 04/26/18 13:10 04/26/18 13:10 04/26/18 13:10 04/26/18 13:10 04/26/18 13:10 - General physical appearance well developed, well nourished, no distress - Eyes normal ocular movement - ENT normal mucosa, atraumatic, normocephalic - Neck trachea midline - Respiratory normal respiratory effort, clear to auscultation - Cardiovascular Cardiovascular exam: Present: RRR - Abdomen Abdomen general surgery: Present: bowel sounds present (hypoactive), soft, tender (periumbilical), wound (NG tube to LIWS (1675ml of bilious drainage noted since midnight)) Hernia: Present: incarcerated, incisional - Integumentary Integumentary general surgery: Present: warm and dry - Neurologic Present: CN 2-12 grossly intact - Psychiatric Psychiatric general surgery: Present: appropriate, oriented to person, oriented to place, oriented to time, speech is normal, memory intact Exam Initial Vital Signs Temp Pulse Resp BP Pulse Ox 97.6 F 100 16 83/48 97 04/26/18 13:10 04/26/18 13:10 04/26/18 13:10 04/26/18 13:10 04/26/18 13:10 Results - Labs 04/27/18 05:17 04/27/18 05:17 Abnormal lab results WBC 12.5 K/mcL (4.3-11.1) H 04/27/18 05:17 RBC 4.06 M/mcL (4.19-5.50) L 04/27/18 05:17 Hgb 12.4 g/dL (12.9-16.9) L D 04/27/18 05:17 Hct 35.3 % (37.5-50.1) L 04/27/18 05:17 RDW 14.6 % (11.5-14.5) H 04/27/18 05:17 Plt Count 441 K/mcL (140-400) H 04/27/18 05:17 Neutrophils # 10.1 K/mcL (1.6-8.9) H 04/27/18 05:17 Monocytes # 1.7 K/mcL (0.0-1.3) H 04/27/18 05:17 PT 13.2 Seconds (9.4-12.1) H 04/26/18 13:34 Sodium 135 mEq/L (136-145) L 04/27/18 05:17 Chloride 87 mEq/L (98-107) L 04/27/18 05:17 Carbon Dioxide 32 mEq/L (23-29) H 04/27/18 05:17 BUN 58 mg/dL (8-23) H 04/27/18 05:17 Creatinine 2.82 mg/dL (0.70-1.30) H 04/27/18 05:17 Est GFR ( Amer) 27 (> 60) L 04/27/18 05:17 Est GFR (Non-Af Amer) 23 (> 60) L 04/27/18 05:17 Glucose 126 mg/dL (70-105) H 04/27/18 05:17 POC Glucose 119 mg/dL (70-99) H 04/27/18 00:24 Calcium 8.5 mg/dL (8.6-10.3) L 04/27/18 05:17 Direct Bilirubin 0.3 mg/dL (0.0-0.2) H 04/26/18 13:34 AST 12 Units/L (13-39) L 04/26/18 13:34 Alkaline Phosphatase 136 Units/L (34-104) H 04/26/18 13:34 Troponin I 0.04 ng/mL (< 0.04) H* 04/26/18 19:02 Globulin 3.9 g/dL (2.4-3.5) H 04/26/18 13:34 Lipase 8 Units/L (11-82) L 04/26/18 13:34 Urine Clarity Turbid (Clear) A 04/26/18 21:30 Urine Protein 100 mg/dL (Neg-Trace) H 04/26/18 21:30 Urine Ketones Trace mg/dL (Negative) H 04/26/18 21:30 Urine Blood Small (Negative) H 04/26/18 21:30 Urine Bilirubin Moderate (Negative) H 04/26/18 21:30 Ur Leukocyte Esterase Trace (Negative) H 04/26/18 21:30 Urine Microscopic WBC 5-15 per hpf (0-3) H 04/26/18 21:30 Ur Squamous Epith Cells Many per lpf (None-Few) H 04/26/18 21:30 Urine Bacteria Moderate per hpf (None-Few) H 04/26/18 21:30 Granular Casts Few per lpf (None Seen) H 04/26/18 21:30 Urine Mucus Many (Few) H 04/26/18 21:30 Urine Yeast Many per hpf (None Seen) H 04/26/18 21:30 Diabetes panel 04/27/18 Range/Units 05:17 Sodium 135 L (136-145) mEq/L Potassium 3.5 (3.5-5.1) mEq/L Chloride 87 L (98-107) mEq/L Carbon Dioxide 32 H (23-29) mEq/L BUN 58 H (8-23) mg/dL Creatinine 2.82 H (0.70-1.30) mg/dL Glucose 126 H (70-105) mg/dL Calcium 8.5 L (8.6-10.3) mg/dL Calcium panel 04/27/18 Range/Units 05:17 Calcium 8.5 L (8.6-10.3) mg/dL Pituitary panel 04/27/18 Range/Units 05:17 Sodium 135 L (136-145) mEq/L Potassium 3.5 (3.5-5.1) mEq/L Chloride 87 L (98-107) mEq/L Carbon Dioxide 32 H (23-29) mEq/L BUN 58 H (8-23) mg/dL Creatinine 2.82 H (0.70-1.30) mg/dL Glucose 126 H (70-105) mg/dL Calcium 8.5 L (8.6-10.3) mg/dL Adrenal panel 04/27/18 Range/Units 05:17 Sodium 135 L (136-145) mEq/L Potassium 3.5 (3.5-5.1) mEq/L Chloride 87 L (98-107) mEq/L Carbon Dioxide 32 H (23-29) mEq/L BUN 58 H (8-23) mg/dL Creatinine 2.82 H (0.70-1.30) mg/dL Glucose 126 H (70-105) mg/dL Calcium 8.5 L (8.6-10.3) mg/dL All other labs normal. - Imaging Additional studies: Abdomen/Pelvis CT 04/26/18 14:59 IMPRESSION: High-grade small-bowel obstruction with transition point in the umbilical hernia . D/ / Radha Yuan MD / Radha Yuan MD Interpreting Provider: Radha Yuan MD Chest X-Ray 04/26/18 18:21 IMPRESSION: No acute findings. D/ / William Mayes / William Mayes Interpreting Provider: William Mayes Consult Discharge Plan - Plan Referrals: Virgilio Sanchez MD [Primary Care Provider] - 05/08/18 10:45 am - Attending Attestation For this encounter, I have reviewed the SUPERVISOR [employer]ISH[employer] or PA documentation, treatment plan, and medical decision making; and I have had face to face time with this patient.
[2018-04-27] MEDS ORDERED: *HR* FentaNYL (PF) 100 MCG/2 ML VIAL IVP PRN (15:49)
[2018-04-27] MEDS ORDERED: Perflutren Lipid Microsphere 2 ML VIAL ONE (16:14)
--- NOTE | 2018-04-28 11:54 | Electrocardiograph Report ---
[address] [address] Test Date: 2018-04-27 Pat Name: Misha Freed Department: 110 Room: 2N12 Gender: Documentation Manager: : [id number] Requested By: Nikkie Daley Order Number: [id number] Reading MD: Mark Aguirre Measurements Intervals [place] Rate: 101 P: 60 WY: 164 QRS: 39 QRSD: 104 T: 180 QT: 360 QTc: 418 Interpretive Statements SINUS TACHYCARDIA WITH OCCASIONAL VENTRICULAR PREMATURE COMPLEXES WITH OCCASIONAL SUPRAVENTRICULAR PREMATURE COMPLEXES ST DEVIATION AND MODERATE T-WAVE ABNORMALITY, CONSIDER ANTEROLATERAL ISCHEMIA ST DEVIATION AND MODERATE T-WAVE ABNORMALITY, CONSIDER INFERIOR ISCHEMIA Electronically Signed On 04-28-2018 11:53:02 EDT by Mark Aguirre
[2018-04-28] MEDS: MetroNIDAZOLE 500 MG/100 ML 500 MG/100 ML BAG IVPB SCH ×2 (11:55→23:58)
[2018-04-28] MEDS: Ipratropium/Albuterol Neb 3 ML IH SCH ×4 (11:55→19:52)
[2018-04-28] MEDS: Pantoprazole 40 MG VIAL IVP SCH ×2 (11:56→18:55)
[2018-04-28] MEDS: *HR* Heparin 5,000 UNIT/ML VIAL SQ SCH ×2 (11:56→18:55)
--- NOTE | 2018-04-28 12:14 | Event Note ---
Date of Encounter: 04/28/18 Time of Encounter: 12:11 - Cardiology Event Note ECG changes noted in the setting of NUNU, bowel obstruction. PLan for possible surgery. TTE with LVEF 55%, atypical septal motion consistent with bundle branch block, no significant valvular dysfunction, no segmental wall motion abnormalities noted. Discussed and reviewed with , patient acceptable risk for surgery and cardiology will sign off. Will follow in outpatient setting. Follow up set.
--- NOTE | 2018-04-28 13:19 | Anesthesia Evaluation PreOp ---
Date of Encounter: 04/28/18 Time of Encounter: 13:16 - Past History Planned Operation: Robot assisted incisional hernia repair Cardiac History: HTN, Hyperlipidemia, Other (CARDIO CONSULT: ECG changes noted in the setting of NUNU, bowel obstruction. PLan for possible surgery. TTE with LVEF 55%, atypical septal motion consistent with bundle branch block, no significant valvular dysfunction, no segmental wall motion abnormalities noted. Discussed and reviewed with , patient acceptable risk for surgery and cardiology will sign off. Will follow in outpatient setting. Follow up set.) Pulmonary History: Smoker, Pack/yr (1 ppd), COPD, Snore ( on home O2) INCIDENT ENGINEER History: Denies Any Significant HX Other Medical History: Renal (NUNU), Other (polio, incisional hernia with SBO) Anesthesia History: No Prior Anesthetic Complications, Past Anesthesia (Left Hip TFN, Left Distal Radius ORIF) Alcohol Use: heavy (admits to 3-4 beers/day) Drug use: none Medications and Allergies Ipratropium/Albuterol Sulfate [Combivent Respimat Inhal [place]] 1 puff IH QID 10/26 [History] Loratadine [Allergy Relief] 10 mg PO DAILY 09/09/17 [History] Metoprolol Succinate 25 mg PO DAILY 09/09/17 [History] Montelukast [Singulair] 10 mg PO DAILY 09/09/17 [History] Ranitidine HCl [Acid Switchboard [employer] Control Room Operator] 150 mg PO BID 09/09/17 [History] Simvastatin [Zocor] 40 mg PO HS 09/09/17 [History] 3 Allergy/AdvReac Type Severity Reaction Status Date / Time Penicillins Allergy See Verified 04/10/18 12:50 Comments - Meds/Allergy Pre-op Review Medications Reviewed: Yes Allergies Reviewed: Yes Beta Blockers on Current Med List: No If Beta Blockers taken, Date/Time (Last Dose taken): on PRN basis Anesthesia Results - Labs 04/27/18 05:17 04/27/18 05:17 - Imaging EKG: report reviewed (SINUS TACHYCARDIA WITH OCCASIONAL VENTRICULAR PREMATURE COMPLEXES WITH OCCASIONAL SUPRAVENTRICULAR PREMATURE COMPLEXES ST DEVIATION AND MODERATE T-WAVE ABNORMALITY, CONSIDER ANTEROLATERAL ISCHEMIA ST DEVIATION AND MODERATE T-WAVE ABNORMALITY, CONSIDER INFERIOR ISCHEMIA) Anesthesia Exam Vital Signs/O2 Sat, Most Current Temp Pulse Resp BP Pulse Ox 98.1 F 100 16 122/70 100 04/28/18 11:05 04/28/18 11:05 04/28/18 11:05 04/28/18 11:05 04/28/18 12:03 NPO (# of Hours): > 8 hrs Pain Scale: 0 Pain Scale Used: Numeric (1 - 10) - HEENT Pupil (Motor): Pupils equal, EOMI Mallampati: II Teeth: Edentulous Oral Opening: Greater than 3 - INCIDENT ENGINEER LOC: Oriented INCIDENT ENGINEER Motor: Normal RUE, Normal LUE, Normal RLE, Normal LLE, Normal Face INCIDENT ENGINEER Sensory: Normal: RUE, LUE, RLE, LLE, Face - Cardiac Rhythm: Regular Murmur: None JVD: No Carotid Bruit: No - Pulmonary Breath Sounds: bilateral Clear Respiratory Effort: Symmetrical Anesthesia Assess/Plan ASA Score: 3 Modified Rocio Scale for Level of Consciousness: Cooperative, oriented, and tranquil Anesthetic Plan: General Autologous Blood: Yes Monitoring Plan: Standard Monitors Recovery Plan: PACU
[2018-04-28] MEDS ORDERED: *HR* Rocuronium Bromide 50 MG/5 ML VIAL ONE (14:19)
[2018-04-28] MEDS ORDERED: Dexamethasone 4 MG/ML VIAL ONE (14:19)
[2018-04-28] MEDS ORDERED: Lidocaine -MPF 2% 2 ML VIAL ONE (14:19)
[2018-04-28] MEDS ORDERED: Ondansetron 4 MG/2 ML VIAL ONE (14:19)
[2018-04-28] MEDS ORDERED: *HR* FentaNYL (PF) 100 MCG/2 ML VIAL ONE ×2 (14:20→16:19)
[2018-04-28] MEDS ORDERED: *HR* Propofol 200 MG/20 ML VIAL IVP ONE (14:20)
[2018-04-28] MEDS ORDERED: *HR* Midazolam HCl 2 MG/2 ML VIAL ONE (14:20)
[2018-04-28] MEDS ORDERED: *HR* OxyCODONE/APAP 5/325 TABLET PO PRN (14:26)
[2018-04-28] MEDS ORDERED: Ondansetron 4 MG/2 ML VIAL IVP ONE ×2 (14:26→17:28)
[2018-04-28] MEDS ORDERED: *HR* FentaNYL (PF) 100 MCG/2 ML VIAL IVP PRN (14:26)
[2018-04-28] MEDS ORDERED: Acetaminophen IV 1,000 MG/100 ML INFUS..BTL ONE (14:34)
[2018-04-28] MEDS ORDERED: *HR* Magnesium Sulfate 1 GM/2 ML VIAL ONE (15:30)
--- NOTE | 2018-04-28 15:30 | Internal Med Progress Note ---
Date of Encounter: 04/28/18 Time of Encounter: 11:00 - Assessment and plan (1) Small bowel obstruction Current Visit: Yes Status: Acute Assessment and plan: SBO with transition point at umbilical hernia. Hernia reduced by surgery in ED. NG tube decompression. NPO for now. Surgery following. For surgery on hernia today. (2) COPD (chronic obstructive pulmonary disease) Current Visit: No Status: Acute Assessment and plan: Stable. not in exacerbation. Qualifiers: COPD type: chronic bronchitis Chronic bronchitis type: unspecified Qualified Code(s): J42 - Unspecified chronic bronchitis (3) Umbilical hernia Current Visit: Yes Status: Acute Assessment and plan: Umbilical hernia reduced in ED. NGT decompression currently for SBO. Abdomen soft but distended, tenderness. Surgery following. Plan for possible surgical repair today Qualifiers: Obstruction and gangrene presence: with obstruction but without gangrene Qualified Code(s): K42.0 - Umbilical hernia with obstruction, without gangrene (4) Hyponatremia Current Visit: No Status: Acute Assessment and plan: Improving since admission with IVF. Continue to monitor. (5) NUNU (acute kidney injury) Current Visit: Yes Status: Acute Assessment and plan: Unknown etiology. Possible pre-renal. UA with granular casts, likely ATN. IVF support. Nephrology consult if not improved. Pending labs. Avoid nephrotoxic medications Renally dose all medications (6) Lactic acidosis Current Visit: Yes Status: Resolved (7) Abnormal EKG Current Visit: Yes Status: Acute Assessment and plan: Reported T wave depressions on presentation. EKG today with new t wave inversions with elevated troponins in setting of SBO and NUNU. Denies chest pain however. Evaluated by cardiology. KAPIL with EF 55%, atypical septal motion c/w BBB. Will follow up outpatient after discharge. (8) SIRS (systemic inflammatory response syndrome) Current Visit: Yes Status: Acute Assessment and plan: - 2 SIRS criteria on admission. Lactic acidoses and episodes of hypotension were present in ED requiring IV fluids - Unsure if this is genuinely infection or a stress reaction. Possible sources would be intra abdominal, or cellulitis around umbilical area. Leukocytosis significantly improved. c/w Cipro and Flagyl day 3 of 5. - Time Spent With Patient Total time spent is greater than 50% in coordination of care (as documented) at patient's floor/unit and/or counseling patient: - Subjective Interval history: Reports abdominal discomfort and and soreness. Not feeling well overall. - Constitutional Vitals: Temp Pulse Resp BP Pulse Ox 98.1 F 100 16 122/70 100 04/28/18 11:05 04/28/18 11:05 04/28/18 11:05 04/28/18 11:05 04/28/18 12:03 General: Alert and oriented. NGT in place. Skin: Normal color, no rash, no lesions. HEENT: EOMI, pupils equal, round and reactive. Cardiovascular: Regular rate, regular rhythm. No murmurs appreciated. Lungs:Normal breath sounds, no wheezes or crackles. Abdomen:Soft, periumbilical tenderness. Distended abdomen, erythematous and warm. Extremities:No deformity, no edema or tenderness, no joint swelling or clubbing. Neurological:Normal cognition, no weakness, no numbness. Rest of the physical exam is non contributory Internal Medicine: Result - Labs CBC & Chem 7: 04/27/18 05:17 04/27/18 05:17 - ABG Interpretation ABG results: PT/INR, D-dimer PT 13.2 Seconds (9.4-12.1) H 04/26/18 13:34 Consult Discharge Plan - Plan Referrals: Virgilio Sanchez MD [Primary Care Provider] - 05/08/18 10:45 am
[2018-04-28] MEDS ORDERED: Neostigmine Methylsulfate 3 MG/3 ML SYRINGE ONE (15:37)
[2018-04-28] MEDS ORDERED: Esmolol 100 MG/10 ML VIAL IVP ONE (15:37)
--- NOTE | 2018-04-28 16:49 | Operative Note ---
Date of procedure: 04/28/18 Pre-op diagnosis: Recurrent Incisional hernia Post-op diagnosis: same Procedure: Robotic Recurrent Incisional hernia repair mesh Anesthesia: KELLY Surgeon: Vignesh Bess Was there an assistant director of residence life present: No Estimated blood loss (cc): 5 Specimen: 0 Condition: stable Disposition: same day Procedure in Detail: After informed consent, the patient was taken the operating room placed in supine position. After adequate sedation and anesthesia the patient's abdomen was prepped and draped. A proper timeout was performed. A 12 mm incision was made on the patient's left abdomen at the level of the umbilicus in the posterior axillary line. Two 8 mm cannulas were placed in the left upper quadrant and left lower quadrant. Once in place, a caduet grasper and robotic scissors were used to reduce the incarcerated tissue from the midline hernia. A 12 cm symbotex mesh was loaded into the abdomen. The robot was docked over the patient's right hip. The robotic arms were connected to the port sites. A robotic grasper and needle stake driver was inserted. The mesh was then situated over the defect and it was sewn to the abdominal wall with an 0 ethibond suture in running fashion. Once completed, the needles were retrieved. The abdomen was deflated and the port sites were removed the 12 mm cannula site was closed with an 0 Vicryl suture in [id number] fashion. The skin was closed with 4- 0 Vicryl suture. Dermabond was placed. One half percent Marcaine 30 mL's were placed in the incision sites. The patient tolerated the procedure well. All instrument counts and needle counts were correct at the end of the case.
--- NOTE | 2018-04-28 17:05 | Anesthesia Evaluation Post Op ---
Date of Encounter: 04/28/18 Time of Encounter: 17:00 - Vital Signs Vital Signs: Vital Signs/O2 Sat/Glucose, Most Current Temp Pulse Resp BP Pulse Ox 04/28/18 16:51 90 18 154/72 96 04/28/18 16:41 98 18 152/70 93 04/28/18 16:31 94 20 159/70 92 04/28/18 16:26 101 20 159/76 96 04/28/18 16:21 97.1 F L 102 20 153/92 100 - Lungs Lungs: Clear Ascult./Percussion - Airway Airway: Non-obstructed - Cardiovascular Regular Rate - Mental Status Mental Status: Alert & Oriented, Answers Appropriately - Pain Pain Scale: 1 - Nausea Vomiting Nausea Vomiting: Not Present - Hydration Hydration: NPO - Discharge PostOp Status: Transfer Patient to floor
--- NOTE | 2018-04-28 17:11 | Anesthesia Evaluation Post Op ---
Date of Encounter: 04/28/18 Time of Encounter: 17:00 - Vital Signs Vital Signs: Vital Signs/O2 Sat/Glucose, Most Current Temp Pulse Resp BP Pulse Ox 04/28/18 16:51 90 18 154/72 96 04/28/18 16:41 98 18 152/70 93 04/28/18 16:31 94 20 159/70 92 04/28/18 16:26 101 20 159/76 96 04/28/18 16:21 97.1 F L 102 20 153/92 100 - Lungs Lungs: Clear Ascult./Percussion - Airway Airway: Non-obstructed - Cardiovascular Regular Rate - Mental Status Mental Status: Alert & Oriented, Answers Appropriately - Pain Pain Scale: 0 - Nausea Vomiting Nausea Vomiting: Not Present
[2018-04-28] MEDS ORDERED: Naloxone 0.4 MG/ML INJ IVP PRN (17:28)
[2018-04-28] MEDS ORDERED: *HR* Metoprolol 5 MG/5 ML VIAL IVP PRN (17:28)
[2018-04-28] MEDS ORDERED: Albuterol 2.5 MG/3 ML NEBULIZER IH PRN (17:28)
[2018-04-28] MEDS: *HR* FentaNYL (PF) 100 MCG/2 ML VIAL IVP PRN (18:54)
[2018-04-28] MEDS: OXYCODONE Oral CONC 10 MG/0.5 ML ORAL.SYG SL PRN (22:53)
[2018-04-29] MEDS: Ipratropium/Albuterol Neb 3 ML IH SCH ×7 (03:58→23:43)
[2018-04-29] MEDS: OXYCODONE Oral CONC 10 MG/0.5 ML ORAL.SYG SL PRN ×4 (04:43→23:06)
[2018-04-29 05:08] LABS: Basophils % 0.3 %; Hematocrit 33.7 % (37.5-50.1); Hemoglobin 11.5 g/dL (12.9-16.9); Immature Granulocytes % 2.8 % (0-4); Lymphocytes # 0.6 K/mcL (0.6-4.6); Lymphocytes % 4.3 %; Mean Corpuscular HGB Conc 34.1 g/dL (31.6-35.5); Mean Corpuscular Volume 90.8 fL (83.0-100.0); Mean Platelet Volume 10.3 fL (9.4-12.4); Monocytes # 0.9 K/mcL (0.0-1.3); Monocytes % 6.5 %; Neutrophils # 12.5 K/mcL (1.6-8.9); Platelet Count 423 K/mcL (140-400); Red Blood Count 3.71 M/mcL (4.19-5.50); Red Cell Distribution Width 14.5 % (11.5-14.5); Segmented Neutrophils % 86.1 %
[2018-04-29 05:30] LABS: Alanine Aminotransferase 8 Units/L (7-52); Albumin 3.4 g/dL (3.5-5.7); Albumin/Globulin Ratio 1.1 (1.1-2.2); Alkaline Phosphatase 94 Units/L (34-104); Aspartate Amino Transferase 13 Units/L (13-39); BUN/Creatinine Ratio 43 (6-26); Bilirubin,Total 0.4 mg/dL (0.3-1.0); Blood Urea Nitrogen 38 mg/dL (8-23); Calcium 8.3 mg/dL (8.6-10.3); Carbon Dioxide 32 mEq/L (23-29); Chloride 98 mEq/L (98-107); Globulin 3.2 g/dL (2.4-3.5); Glucose 122 mg/dL (70-105); Osmolality,Calculated 294 (280-300); Potassium 3.8 mEq/L (3.5-5.1); Sodium 137 mEq/L (136-145); Total Protein 6.6 g/dL (6.4-8.9); eGFR For Non-African Americans > 60 (> 60)
[2018-04-29] MEDS: *HR* Heparin 5,000 UNIT/ML VIAL SQ SCH ×2 (06:28→17:54)
[2018-04-29] MEDS: Pantoprazole 40 MG VIAL IVP SCH ×2 (06:28→17:54)
[2018-04-29] MEDS: MetroNIDAZOLE 500 MG/100 ML 500 MG/100 ML BAG IVPB SCH ×3 (09:28→23:06)
--- NOTE | 2018-04-29 10:39 | General Surgery Progress Note ---
<Kingsley Moody - Last Filed: 04/29/18 10:49> Date of Encounter: 04/29/18 Time of Encounter: 10:37 - Assessment and Plan (1) Umbilical hernia Current Visit: Yes Status: Acute Cotinue NPO - patient still in a lot of distress and exper Continue IV ABX Continue Simethicone for distension Continue current pain med regimen Encourage ambulation and inspirative spirometry Qualifiers: Obstruction and gangrene presence: with obstruction but without gangrene Qualified Code(s): K42.0 - Umbilical hernia with obstruction, without gangrene Subjective Patient reports: feels better, still having pain, pain is less, flatus, no bowel movement Narrative: 67 year old male post op day 1 for robotic incisional hernia repair with Dr. Bess. Patient reports feeling diffuse lower quadrant abdominal pain. Pain is rated an 8/10. Patient reports abdoinal distension. Otherwise patient is in NAD. Objective Vital Signs - Last 8 Hours Temp Pulse Resp BP Pulse Ox 04/29/18 07:32 16 96 04/29/18 06:57 97.9 F 99 16 164/86 95 04/29/18 04:54 99 04/29/18 04:21 18 95 04/29/18 04:14 98.3 F 102 18 164/89 95 Intake and Output 04/28/18 04/29/18 04/29/18 23:59 07:59 15:59 Intake Total 200 / 200 100 / 100 0 / 0 Output Total 240 / 240 930 / 930 275 / 275 Balance -40 / -40 -830 / -830 -275 / -275 Intake: IV Fluids 200 / 200 100 / 100 Cipro Premix 400 MG/200 ML 400 200 / 200 mg In 200 ml @ 200 mls/hr IVPB Q24H [facility] Rx#:[id number] Flagyl Premix 500 MG/100 ML 500 100 / 100 mg In 100 ml @ 100 mls/hr IVPB Q8HR [facility] Rx#:[id number] Oral 0 / 0 Output: Urine 225 / 225 930 / 930 275 / 275 Estimated Blood Loss 15 / 15 Other: Meal Breakfast Percent of Meal Consumed 0% Weight 68.6 kg Blood Glucose* 180 120 Patient Weight 04/29/18 23:59 Weight 68.6 kg - General physical appearance well developed, well nourished, moderate distress - Respiratory normal expansion, normal respiratory effort - Cardiovascular Cardiovascular exam: Present: RRR - Abdomen Abdomen: Present: bowel sounds present (very faint), distended Abdominal Tenderness: LUQ, LLQ - Neurologic CN 2-12 grossly intact - Psychiatric oriented to time, oriented to person, oriented to place, speech is normal, memory intact - Labs 04/29/18 04:31 04/29/18 04:31 Diabetes panel 04/29/18 Range/Units 04:31 Sodium 137 (136-145) mEq/L Potassium 3.8 (3.5-5.1) mEq/L Chloride 98 (98-107) mEq/L Carbon Dioxide 32 H (23-29) mEq/L BUN 38 H (8-23) mg/dL Creatinine 0.88 (0.70-1.30) mg/dL Glucose 122 H (70-105) mg/dL Calcium 8.3 L (8.6-10.3) mg/dL AST 13 (13-39) Units/L ALT 8 (7-52) Units/L Alkaline Phosphatase 94 (34-104) Units/L Albumin 3.4 L (3.5-5.7) g/dL Calcium panel 04/29/18 Range/Units 04:31 Calcium 8.3 L (8.6-10.3) mg/dL Albumin 3.4 L (3.5-5.7) g/dL Pituitary panel 04/29/18 Range/Units 04:31 Sodium 137 (136-145) mEq/L Potassium 3.8 (3.5-5.1) mEq/L Chloride 98 (98-107) mEq/L Carbon Dioxide 32 H (23-29) mEq/L BUN 38 H (8-23) mg/dL Creatinine 0.88 (0.70-1.30) mg/dL Glucose 122 H (70-105) mg/dL Calcium 8.3 L (8.6-10.3) mg/dL Adrenal panel 04/29/18 Range/Units 04:31 Sodium 137 (136-145) mEq/L Potassium 3.8 (3.5-5.1) mEq/L Chloride 98 (98-107) mEq/L Carbon Dioxide 32 H (23-29) mEq/L BUN 38 H (8-23) mg/dL Creatinine 0.88 (0.70-1.30) mg/dL Glucose 122 H (70-105) mg/dL Calcium 8.3 L (8.6-10.3) mg/dL Total Bilirubin 0.4 (0.3-1.0) mg/dL AST 13 (13-39) Units/L ALT 8 (7-52) Units/L Alkaline Phosphatase 94 (34-104) Units/L Albumin 3.4 L (3.5-5.7) g/dL - VTE Documentation of Mechanical Device: Intermittent pneumatic compression device Consult Discharge Plan - Plan Referrals: Virgilio Sanchez MD [Primary Care Provider] - 05/08/18 10:45 am <TulioGarethn Lmain - Last Filed: 04/29/18 15:00> Date of Encounter: 04/29/18 Objective Vital Signs - Last 8 Hours Temp Pulse Resp BP Pulse Ox 04/29/18 11:43 97.8 F 103 16 152/78 95 04/29/18 11:02 16 94 04/29/18 07:32 16 96 Intake and Output 04/28/18 04/29/18 04/29/18 23:59 07:59 15:59 Intake Total 200 / 200 100 / 100 0 / 0 Output Total 240 / 240 930 / 930 275 / 275 Balance -40 / -40 -830 / -830 -275 / -275 Intake: IV Fluids 200 / 200 100 / 100 Cipro Premix 400 MG/200 ML 400 200 / 200 mg In 200 ml @ 200 mls/hr IVPB Q24H [facility] Rx#:[id number] Flagyl Premix 500 MG/100 ML 500 100 / 100 mg In 100 ml @ 100 mls/hr IVPB Q8HR [facility] Rx#:[id number] Oral 0 / 0 Output: Urine 225 / 225 930 / 930 275 / 275 Estimated Blood Loss Other: Meal Breakfast Percent of Meal Consumed 0% Weight 68.6 kg Blood Glucose* 180 120 107 Patient Weight 04/29/18 23:59 Weight 68.6 kg - Labs 04/29/18 04:31 04/29/18 04:31 Diabetes panel 04/29/18 Range/Units 04:31 Sodium 137 (136-145) mEq/L Potassium 3.8 (3.5-5.1) mEq/L Chloride 98 (98-107) mEq/L Carbon Dioxide 32 H (23-29) mEq/L BUN 38 H (8-23) mg/dL Creatinine 0.88 (0.70-1.30) mg/dL Glucose 122 H (70-105) mg/dL Calcium 8.3 L (8.6-10.3) mg/dL AST 13 (13-39) Units/L ALT 8 (7-52) Units/L Alkaline Phosphatase 94 (34-104) Units/L Albumin 3.4 L (3.5-5.7) g/dL Calcium panel 04/29/18 Range/Units 04:31 Calcium 8.3 L (8.6-10.3) mg/dL Albumin 3.4 L (3.5-5.7) g/dL Pituitary panel 04/29/18 Range/Units 04:31 Sodium 137 (136-145) mEq/L Potassium 3.8 (3.5-5.1) mEq/L Chloride 98 (98-107) mEq/L Carbon Dioxide 32 H (23-29) mEq/L BUN 38 H (8-23) mg/dL Creatinine 0.88 (0.70-1.30) mg/dL Glucose 122 H (70-105) mg/dL Calcium 8.3 L (8.6-10.3) mg/dL Adrenal panel 04/29/18 Range/Units 04:31 Sodium 137 (136-145) mEq/L Potassium 3.8 (3.5-5.1) mEq/L Chloride 98 (98-107) mEq/L Carbon Dioxide 32 H (23-29) mEq/L BUN 38 H (8-23) mg/dL Creatinine 0.88 (0.70-1.30) mg/dL Glucose 122 H (70-105) mg/dL Calcium 8.3 L (8.6-10.3) mg/dL Total Bilirubin 0.4 (0.3-1.0) mg/dL AST 13 (13-39) Units/L ALT 8 (7-52) Units/L Alkaline Phosphatase 94 (34-104) Units/L Albumin 3.4 L (3.5-5.7) g/dL - Attending Attestation I examined this patient and my medical decision-making was reviewed with the Resident Physician. I agree with the documented findings, disposition and treatment plan as described except to the extent set forth below. The patient is seen and evaluated with the resident on morning rounds. His anterior abdominal wall is somewhat discolored. He has few bowel sounds. The nasogastric tube is in place. He continues to be distended. It appears as though he will have an extended postoperative ileus after his hernia repair. We will continue IV hydration and supportive care as well as pain management Wing Antunez MD FACS
--- NOTE | 2018-04-29 13:44 | Internal Med Progress Note ---
Date of Encounter: 04/29/18 Time of Encounter: 10:00 - Assessment and plan (1) Small bowel obstruction Current Visit: Yes Status: Acute Assessment and plan: SBO with transition point at umbilical hernia. Hernia mechanically reduced by surgery in ED. NG tube decompression. NPO for now. Surgery following. s/p surgical correction 04/28 by surgery. Improved clinically. Continue to monitor. c/w Cipro and Flagyl. (2) COPD (chronic obstructive pulmonary disease) Current Visit: No Status: Acute Assessment and plan: Stable. not in exacerbation. Qualifiers: COPD type: chronic bronchitis Chronic bronchitis type: unspecified Qualified Code(s): J42 - Unspecified chronic bronchitis (3) Umbilical hernia Current Visit: Yes Status: Acute Assessment and plan: Umbilical hernia mechanically reduced in ED. NGT decompression currently for SBO. s/p surgical repair 04/28/18. follow surgery recommendations. Qualifiers: Obstruction and gangrene presence: with obstruction but without gangrene Qualified Code(s): K42.0 - Umbilical hernia with obstruction, without gangrene (4) Hyponatremia Current Visit: No Status: Resolved Assessment and plan: Resolved (5) NUNU (acute kidney injury) Current Visit: Yes Status: Resolved Assessment and plan: resolved (6) Abnormal EKG Current Visit: Yes Status: Acute Assessment and plan: Reported T wave depressions on presentation. EKG 04/28 with new t wave inversions with elevated troponins in setting of SBO and NUNU. Denies chest pain however. Evaluated by cardiology. KAPIL with EF 55%, atypical septal motion c/w BBB. Will follow up outpatient after discharge. (7) SIRS (systemic inflammatory response syndrome) Current Visit: Yes Status: Acute Assessment and plan: - 2 SIRS criteria on admission. Lactic acidoses and episodes of hypotension were present in ED requiring IV fluids - Unsure if this is genuinely infection or a stress reaction. Possible sources would be intra abdominal, or cellulitis around umbilical area. Leukocytosis significantly improved. c/w Cipro and Flagyl day 4 of 5. - Time Spent With Patient Total time spent is greater than 50% in coordination of care (as documented) at patient's floor/unit and/or counseling patient: - Subjective Interval history: Reports abdominal soreness but overall much better than yesterday - Constitutional Vitals: Temp Pulse Resp BP Pulse Ox 97.8 F 103 16 152/78 95 07/21/18 11:43 04/29/18 11:43 04/29/18 11:43 04/29/18 11:43 04/29/18 11:43 General: Alert and oriented. NGT in place. Skin: Normal color, no rash, no lesions. HEENT: EOMI, pupils equal, round and reactive. Cardiovascular: Regular rate, regular rhythm. No murmurs appreciated. Lungs:Normal breath sounds, no wheezes or crackles. Abdomen:Soft, periumbilical tenderness. Distended abdomen, erythematous and warm. Extremities:No deformity, no edema or tenderness, no joint swelling or clubbing. Neurological:Normal cognition, no weakness, no numbness. Rest of the physical exam is non contributory Internal Medicine: Result - Labs CBC & Chem 7: 04/29/18 04:31 04/29/18 04:31 Labs: Short CBC 04/29/18 Range/Units 04:31 WBC 14.5 H (4.3-11.1) K/mcL Hgb 11.5 L (12.9-16.9) g/dL Hct 33.7 L (37.5-50.1) % Plt Count 423 H (140-400) K/mcL Neutrophils # 12.5 H (1.6-8.9) K/mcL BMP 04/29/18 04:31 Sodium 137 Potassium 3.8 Chloride 98 Carbon Dioxide 32 H BUN 38 H Creatinine 0.88 Glucose 122 H Calcium 8.3 L Liver Function 04/29/18 Range/Units 04:31 Total Bilirubin 0.4 (0.3-1.0) mg/dL AST 13 (13-39) Units/L ALT 8 (7-52) Units/L Alkaline Phosphatase 94 (34-104) Units/L Albumin 3.4 L (3.5-5.7) g/dL - ABG Interpretation ABG results: PT/INR, D-dimer PT 13.2 Seconds (9.4-12.1) H 04/26/18 13:34 - VTE Documentation of Mechanical Device: Intermittent pneumatic compression device Consult Discharge Plan - Plan Referrals: Virgilio Sanchez MD [Primary Care Provider] - 05/08/18 10:45 am
[2018-04-29] MEDS: Simethicone 80 MG TAB.CHEW PO PRN (15:59)
[2018-04-29] MEDS: *HR* FentaNYL (PF) 100 MCG/2 ML VIAL IVP PRN (20:20)
[2018-04-29 21:11] LABS: Basophils # 0.1 K/mcL (0.0-0.2); Basophils % 0.6 %; Eosinophils % 0.1 %; Hematocrit 34.6 % (37.5-50.1); Hemoglobin 11.6 g/dL (12.9-16.9); Immature Granulocytes % 4.5 % (0-4); Lymphocytes # 1.3 K/mcL (0.6-4.6); Lymphocytes % 8.5 %; Mean Corpuscular HGB Conc 33.5 g/dL (31.6-35.5); Mean Corpuscular Hemoglobin 30.9 pg (28.0-33.3); Mean Platelet Volume 9.8 fL (9.4-12.4); Monocytes # 1.8 K/mcL (0.0-1.3); Neutrophils # 11.1 K/mcL (1.6-8.9); Platelet Count 401 K/mcL (140-400); Red Blood Count 3.76 M/mcL (4.19-5.50); Red Cell Distribution Width 14.6 % (11.5-14.5); Segmented Neutrophils % 74.3 %
[2018-04-30] MEDS: Ipratropium/Albuterol Neb 3 ML IH SCH ×5 (03:53→19:55)
[2018-04-30 05:08] LABS: Hematocrit 33.7 % (37.5-50.1); Hemoglobin 11.4 g/dL (12.9-16.9); Mean Corpuscular HGB Conc 33.8 g/dL (31.6-35.5); Mean Corpuscular Hemoglobin 30.6 pg (28.0-33.3); Mean Corpuscular Volume 90.6 fL (83.0-100.0); Mean Platelet Volume 9.8 fL (9.4-12.4); Monocytes # 1.6 K/mcL (0.0-1.3); Platelet Count 416 K/mcL (140-400); Red Blood Count 3.72 M/mcL (4.19-5.50); Red Cell Distribution Width 14.7 % (11.5-14.5)
[2018-04-30 05:27] LABS: BUN/Creatinine Ratio 46 (6-26); Blood Urea Nitrogen 28 mg/dL (8-23); Calcium 8.5 mg/dL (8.6-10.3); Carbon Dioxide 31 mEq/L (23-29); Chloride 100 mEq/L (98-107); Glucose 101 mg/dL (70-105); Osmolality,Calculated 296 (280-300); Potassium 3.5 mEq/L (3.5-5.1); Sodium 140 mEq/L (136-145); eGFR For Non-African Americans > 60 (> 60)
[2018-04-30] MEDS: Pantoprazole 40 MG VIAL IVP SCH ×2 (05:38→17:05)
[2018-04-30] MEDS: *HR* Heparin 5,000 UNIT/ML VIAL SQ SCH ×2 (05:39→17:11)
[2018-04-30] MEDS: OXYCODONE Oral CONC 10 MG/0.5 ML ORAL.SYG SL PRN ×2 (05:44→20:05)
[2018-04-30 05:59] LABS: Eosinophils # 0.3 K/mcL (0.0-0.6); Lymphocytes # 4.3 K/mcL (0.6-4.6); Neutrophils # 7.2 K/mcL (1.6-8.9); Platelet Estimate Normal (Normal); Reactive Lymphocytes Present (Not Present)
[2018-04-30] MEDS: MetroNIDAZOLE 500 MG/100 ML 500 MG/100 ML BAG IVPB SCH ×2 (09:53→16:15)
[2018-04-30] MEDS ORDERED: OXYCODONE Oral CONC 10 MG/0.5 ML ORAL.SYG SL ONE (10:10)
[2018-04-30 10:22] LABS: Mycoplasma pneumoniae IgG 0.11 U/L (<=0.09)
[2018-04-30] MEDS ORDERED: SODIUM CHLORIDE/NAHCO3/KCL/PEG 4,000 ML SOLN.RECON PO ONE (12:28)
--- NOTE | 2018-04-30 12:32 | General Surgery Progress Note ---
<Kingsley Moody - Last Filed: 04/30/18 12:32> Date of Encounter: 04/30/18 Time of Encounter: 12:30 - Assessment and Plan (1) Umbilical hernia Current Visit: Yes Status: Acute Encourage bowel movement patient giving fleets enema and Reglan Cotinue NPO Continue IV ABX Continue Simethicone for distension Continue current pain med regimen Encourage ambulation and inspirative spirometry Qualifiers: Obstruction and gangrene presence: with obstruction but without gangrene Qualified Code(s): K42.0 - Umbilical hernia with obstruction, without gangrene Subjective Patient reports: feels better, still having pain, no flatus, no bowel movement, nausea Narrative: Patient is in no acute distress. Has not had a bowel movement or passed gas. He is still distended and experiencing mild abdominal pain Objective Vital Signs - Last 8 Hours Temp Pulse Resp BP Pulse Ox 04/30/18 11:34 18 96 04/30/18 11:02 98.8 F 107 18 177/69 91 04/30/18 06:59 98.7 F 101 18 168/91 94 Intake and Output 04/29/18 04/30/18 04/30/18 23:59 07:59 15:59 Intake Total 300 / 300 100 / 100 100 / 100 Output Total 375 / 375 650 / 650 200 / 200 Balance -75 / -75 -550 / -550 -100 / -100 Intake: IV Fluids 300 / 300 100 / 100 100 / 100 Cipro Premix 400 MG/200 ML 400 200 / 200 mg In 200 ml @ 200 mls/hr IVPB Q24H [facility] Rx#:[id number] Flagyl Premix 500 MG/100 ML 500 100 / 100 100 / 100 100 / 100 mg In 100 ml @ 100 mls/hr IVPB Q8HR [facility] Rx#:[id number] Oral 0 / 0 Output: Urine 175 / 175 500 / 500 200 / 200 Gastric Tube Lavage Amount 200 / 200 150 / 150 0 / 0 R Nares 200 / 200 150 / 150 0 / 0 Other: Meal npo Blood Glucose* 97 94 85 - Respiratory normal expansion, normal respiratory effort - Cardiovascular Cardiovascular exam: Present: RRR - Abdomen Abdomen: Present: bowel sounds present, non tender, distended. Absent: guarding , rebound Abdominal Tenderness: diffusely - Neurologic CN 2-12 grossly intact - Psychiatric oriented to time, oriented to person, oriented to place, speech is normal, memory intact - Labs 04/30/18 04:39 04/30/18 04:39 Diabetes panel 04/30/18 Range/Units 04:39 Sodium 140 (136-145) mEq/L Potassium 3.5 (3.5-5.1) mEq/L Chloride 100 (98-107) mEq/L Carbon Dioxide 31 H (23-29) mEq/L BUN 28 H (8-23) mg/dL Creatinine 0.61 L (0.70-1.30) mg/dL Glucose 101 (70-105) mg/dL Calcium 8.5 L (8.6-10.3) mg/dL Calcium panel 04/30/18 Range/Units 04:39 Calcium 8.5 L (8.6-10.3) mg/dL Pituitary panel 04/30/18 Range/Units 04:39 Sodium 140 (136-145) mEq/L Potassium 3.5 (3.5-5.1) mEq/L Chloride 100 (98-107) mEq/L Carbon Dioxide 31 H (23-29) mEq/L BUN 28 H (8-23) mg/dL Creatinine 0.61 L (0.70-1.30) mg/dL Glucose 101 (70-105) mg/dL Calcium 8.5 L (8.6-10.3) mg/dL Adrenal panel 04/30/18 Range/Units 04:39 Sodium 140 (136-145) mEq/L Potassium 3.5 (3.5-5.1) mEq/L Chloride 100 (98-107) mEq/L Carbon Dioxide 31 H (23-29) mEq/L BUN 28 H (8-23) mg/dL Creatinine 0.61 L (0.70-1.30) mg/dL Glucose 101 (70-105) mg/dL Calcium 8.5 L (8.6-10.3) mg/dL - VTE Documentation of Mechanical Device: Intermittent pneumatic compression device Consult Discharge Plan - Plan Referrals: Virgilio Sanchez MD [Primary Care Provider] - 05/08/18 10:45 am <Wing Antunez - Last Filed: 04/30/18 13:08> Date of Encounter: 04/30/18 Objective Vital Signs - Last 8 Hours Temp Pulse Resp BP Pulse Ox 04/30/18 11:34 18 96 04/30/18 11:02 98.8 F 107 18 177/69 91 04/30/18 06:59 98.7 F 101 18 168/91 94 Intake and Output 04/29/18 04/30/18 04/30/18 23:59 07:59 15:59 Intake Total 300 / 300 100 / 100 100 / 100 Output Total 375 / 375 650 / 650 200 / 200 Balance -75 / -75 -550 / -550 -100 / -100 Intake: IV Fluids 300 / 300 100 / 100 100 / 100 Cipro Premix 400 MG/200 ML 400 200 / 200 mg In 200 ml @ 200 mls/hr IVPB Q24H [facility] Rx#:[id number] Flagyl Premix 500 MG/100 ML 500 100 / 100 100 / 100 100 / 100 mg In 100 ml @ 100 mls/hr IVPB Q8HR [facility] Rx#:[id number] Oral 0 / 0 Output: Urine 175 / 175 500 / 500 200 / 200 Gastric Tube Lavage Amount 200 / 200 150 / 150 0 / 0 R Nares 200 / 200 150 / 150 0 / 0 Other: Meal npo Blood Glucose* 97 94 85 - Labs 04/30/18 04:39 04/30/18 04:39 Diabetes panel 04/30/18 Range/Units 04:39 Sodium 140 (136-145) mEq/L Potassium 3.5 (3.5-5.1) mEq/L Chloride 100 (98-107) mEq/L Carbon Dioxide 31 H (23-29) mEq/L BUN 28 H (8-23) mg/dL Creatinine 0.61 L (0.70-1.30) mg/dL Glucose 101 (70-105) mg/dL Calcium 8.5 L (8.6-10.3) mg/dL Calcium panel 04/30/18 Range/Units 04:39 Calcium 8.5 L (8.6-10.3) mg/dL Pituitary panel 04/30/18 Range/Units 04:39 Sodium 140 (136-145) mEq/L Potassium 3.5 (3.5-5.1) mEq/L Chloride 100 (98-107) mEq/L Carbon Dioxide 31 H (23-29) mEq/L BUN 28 H (8-23) mg/dL Creatinine 0.61 L (0.70-1.30) mg/dL Glucose 101 (70-105) mg/dL Calcium 8.5 L (8.6-10.3) mg/dL Adrenal panel 04/30/18 Range/Units 04:39 Sodium 140 (136-145) mEq/L Potassium 3.5 (3.5-5.1) mEq/L Chloride 100 (98-107) mEq/L Carbon Dioxide 31 H (23-29) mEq/L BUN 28 H (8-23) mg/dL Creatinine 0.61 L (0.70-1.30) mg/dL Glucose 101 (70-105) mg/dL Calcium 8.5 L (8.6-10.3) mg/dL - Attending Attestation I examined this patient and my medical decision-making was reviewed with the Resident Physician. I agree with the documented findings, disposition and treatment plan as described except to the extent set forth below. The patient was seen and evaluated on morning rounds with the resident. He continues to have abdominal distention. He has few bowel sounds and is not passing flatus. We will try fleets enema today and had 36 hours of Reglan therapy. Continue supportive care. Wing Antunez MD FACS
[2018-04-30] MEDS: Metoclopramide 20 MG in 0.9 % Sodium Chloride 50 ML IVPB SCH ×2 (15:24→20:00)
--- NOTE | 2018-04-30 17:21 | Internal Med Progress Note ---
Date of Encounter: 04/30/18 Time of Encounter: 11:15 - Assessment and plan (1) Small bowel obstruction Current Visit: Yes Status: Acute Assessment and plan: SBO with transition point at umbilical hernia. Hernia mechanically reduced by surgery in ED. NG tube decompression. NPO for now. Surgery following. s/p surgical correction 04/28 by surgery. Improved clinically. Continue to monitor. c/w Cipro and Flagyl. (2) COPD (chronic obstructive pulmonary disease) Current Visit: No Status: Acute Assessment and plan: Stable. not in exacerbation. Qualifiers: COPD type: chronic bronchitis Chronic bronchitis type: unspecified Qualified Code(s): J42 - Unspecified chronic bronchitis (3) Umbilical hernia Current Visit: Yes Status: Acute Assessment and plan: Umbilical hernia mechanically reduced in ED. NGT decompression currently for SBO. s/p surgical repair 04/28/18. follow surgery recommendations. Qualifiers: Obstruction and gangrene presence: with obstruction but without gangrene Qualified Code(s): K42.0 - Umbilical hernia with obstruction, without gangrene (4) NUNU (acute kidney injury) Current Visit: Yes Status: Resolved Assessment and plan: resolved (5) Abnormal EKG Current Visit: Yes Status: Acute Assessment and plan: Reported T wave depressions on presentation. EKG 04/28 with new t wave inversions with elevated troponins in setting of SBO and NUNU. Denies chest pain however. Evaluated by cardiology. KAPIL with EF 55%, atypical septal motion c/w BBB. Will follow up outpatient after discharge. (6) SIRS (systemic inflammatory response syndrome) Current Visit: Yes Status: Acute Assessment and plan: - 2 SIRS criteria on admission. Lactic acidoses and episodes of hypotension were present in ED requiring IV fluids - Unsure if this is genuinely infection or a stress reaction. Possible sources would be intra abdominal, or cellulitis around umbilical area. Leukocytosis significantly improved. c/w Cipro and Flagyl day 5 of 5. - Time Spent With Patient Total time spent is greater than 50% in coordination of care (as documented) at patient's floor/unit and/or counseling patient: - Subjective Interval history: Patient still with abdominal pain but overall feels much better - Constitutional Vitals: Temp Pulse Resp BP Pulse Ox 98.6 F 99 18 141/96 94 04/30/18 15:57 04/30/18 15:57 04/30/18 15:57 04/30/18 15:57 04/30/18 15:57 General: Alert and oriented. NGT in place. Skin: Normal color, no rash, no lesions. HEENT: EOMI, pupils equal, round and reactive. Cardiovascular: Regular rate, regular rhythm. No murmurs appreciated. Lungs:Normal breath sounds, no wheezes or crackles. Abdomen:Soft, periumbilical tenderness. Distended abdomen, erythematous and warm. Extremities:No deformity, no edema or tenderness, no joint swelling or clubbing. Neurological:Normal cognition, no weakness, no numbness. Rest of the physical exam is non contributory Internal Medicine: Result - Labs CBC & Chem 7: 04/30/18 04:39 04/30/18 04:39 Labs: Short CBC 04/29/18 04/30/18 Range/Units 20:58 04:39 WBC 14.9 H 13.4 H (4.3-11.1) K/mcL Hgb 11.6 L 11.4 L (12.9-16.9) g/dL Hct 34.6 L 33.7 L (37.5-50.1) % Plt Count 401 H 416 H (140-400) K/mcL Neutrophils # 11.1 H 7.2 (1.6-8.9) K/mcL BMP 04/30/18 04:39 Sodium 140 Potassium 3.5 Chloride 100 Carbon Dioxide 31 H BUN 28 H Creatinine 0.61 L Glucose 101 Calcium 8.5 L - ABG Interpretation ABG results: PT/INR, D-dimer PT 13.2 Seconds (9.4-12.1) H 04/26/18 13:34 - Impressions Impressions Echocardiogram 04/27/18 11:40 Impressions: Technically sub-optimal due to poor echocardiographic windows. LVEF 55%. Normal LV chamber size, wall thickness and function. Atypical septal motion consistent with bundle branch block. Mild left ventricular diastolic dysfunction. Normal right ventricular structure and function. Unable to estimate RVSP due to lack of TR jet. No significant valvular dysfunction. Left Ventricular Wall Motion: Rest Echo Findings All wall segments showed normal motion. Findings: Study Quality * Technically sub-optimal due to poor echocardiographic windows. ECG Findings * Sinus rhythm with PACs, BBB. Left Ventricle * LVEF 55%. * Normal LV chamber size, wall thickness and function. * Atypical septal motion consistent with bundle branch block. * Mild left ventricular diastolic dysfunction. Right Ventricle * Normal right ventricular structure and function. Left Atrium * Mildly dilated left atrium. Right Atrium * Normal right atrial size. Aortic Valve * Aortic valve not well visualized. * No aortic regurgitation. * No aortic stenosis. Mitral Valve * Normal mitral valve structure and function. * No mitral regurgitation. * No mitral stenosis. Tricuspid Valve * Normal tricuspid valve structure and function. * No tricuspid regurgitation. * Unable to estimate RVSP due to lack of TR jet. Pulmonic Valve * Pulmonic valve not well visualized. Aorta * Normally sized aortic root. Pericardium * The pericardium appears normal. IVC * Normal IVC dimensions and inspiratory collapse. Pulmonary Artery * Normal visualized portions of the main pulmonary artery. - VTE Documentation of Mechanical Device: Intermittent pneumatic compression device Consult Discharge Plan - Plan Referrals: Virgilio Sanchez MD [Primary Care Provider] - 05/08/18 10:45 am
[2018-05-01] MEDS: Ipratropium/Albuterol Neb 3 ML IH SCH ×7 (00:07→23:35)
[2018-05-01] MEDS: Metoclopramide 20 MG in 0.9 % Sodium Chloride 50 ML IVPB SCH ×3 (03:39→20:54)
[2018-05-01 04:16] LABS: Basophils # 0.1 K/mcL (0.0-0.2); Basophils % 0.7 %; Eosinophils # 0.1 K/mcL (0.0-0.6); Eosinophils % 0.8 %; Hematocrit 35.8 % (37.5-50.1); Lymphocytes # 1.7 K/mcL (0.6-4.6); Lymphocytes % 11.3 %; Mean Corpuscular HGB Conc 33.5 g/dL (31.6-35.5); Mean Corpuscular Hemoglobin 31.2 pg (28.0-33.3); Mean Platelet Volume 9.9 fL (9.4-12.4); Monocytes # 1.7 K/mcL (0.0-1.3); Monocytes % 11.1 %; Neutrophils # 10.3 K/mcL (1.6-8.9); Platelet Count 379 K/mcL (140-400); Red Blood Count 3.85 M/mcL (4.19-5.50); Red Cell Distribution Width 14.6 % (11.5-14.5); Segmented Neutrophils % 69.1 %
[2018-05-01 04:33] LABS: BUN/Creatinine Ratio 45 (6-26); Blood Urea Nitrogen 25 mg/dL (8-23); Calcium 8.5 mg/dL (8.6-10.3); Carbon Dioxide 29 mEq/L (23-29); Chloride 101 mEq/L (98-107); Glucose 90 mg/dL (70-105); Osmolality,Calculated 292 (280-300); Potassium 3.6 mEq/L (3.5-5.1); Sodium 139 mEq/L (136-145); eGFR For Non-African Americans > 60 (> 60)
[2018-05-01] MEDS: *HR* Heparin 5,000 UNIT/ML VIAL SQ SCH ×2 (06:02→18:44)
[2018-05-01] MEDS: Pantoprazole 40 MG VIAL IVP SCH ×2 (06:02→18:45)
[2018-05-01] MEDS: OXYCODONE Oral CONC 10 MG/0.5 ML ORAL.SYG SL PRN ×2 (06:10→22:33)
--- NOTE | 2018-05-01 08:43 | General Surgery Progress Note ---
Date of Encounter: 05/01/18 Time of Encounter: 08:20 - Assessment and Plan (1) Umbilical hernia Current Visit: Yes Status: Acute Continue to have Abdominal Distension - Despite reglan and fleet's enema patient still has not had bowel movement, but passing minimal gas. He is also having very faint bowel sounds. - Giving another dose of Fleet's enema - Continue reglan therapy - Continue Simethicone for distension - Continue NG tube decompression - Continue NPO Continue ABX, pain control, IVF per primary team's recommendations. Encourage ambulation and inspirative spirometry Serial abdominal exams Surgery will continue following the patient Qualifiers: Obstruction and gangrene presence: with obstruction but without gangrene Qualified Code(s): K42.0 - Umbilical hernia with obstruction, without gangrene Subjective Patient reports: feels better, still having pain, no flatus, no bowel movement Narrative: 67 year old male with SBO s/p umbillical hernia repair with Dr. Bess 04/28. Patient is improving from yesterday and reports feeling confortable. He is still experiencing abdominal distension with NG tube decompression. Patient is passing "a little" gas and has not had a bowel movement. Yesterday received fleet's enema and reglan. Patient is stilll having moderate abdominal pain at the lower quadrants, rated a 6/10. Patient is tolerating the pain well and does not request additional pain control. Patient is still NPO. Objective Vital Signs - Last 8 Hours Temp Pulse Resp BP Pulse Ox 05/01/18 07:11 98.7 F 103 20 152/79 97 05/01/18 05:02 98 F 107 20 155/98 95 05/01/18 04:26 18 96 05/01/18 01:14 98.4 F 109 20 149/97 93 Intake and Output 04/30/18 05/01/18 05/01/18 23:59 07:59 15:59 Intake Total 408 / 408 Output Total 375 / 375 500 / 500 Balance -500 / -500 Intake: IV Fluids 408 / 408 Cipro Premix 400 MG/200 ML 400 200 / 200 mg In 200 ml @ 200 mls/hr IVPB Q12HR [facility] Rx#:[id number] Reglan 20 MG In 0.9 % Sodium 108 / 108 Chloride 50 ML @ 108 mls/hr IVPB Q8H [facility] Rx#:[id number] Flagyl Premix 500 MG/100 ML 500 100 / 100 mg In 100 ml @ 100 mls/hr IVPB Q8HR [facility] Rx#:[id number] Oral 0 / 0 Output: Urine 375 / 375 500 / 500 Gastric Tube Lavage Amount 0 / 0 0 / 0 R Nares 0 / 0 0 / 0 Other: Meal NPO Weight 67.1 kg Blood Glucose* 83 78 Patient Weight 05/01/18 23:59 Weight 67.1 kg - General physical appearance well developed, no distress - Cardiovascular Cardiovascular exam: Present: RRR - Abdomen Abdomen: Present: bowel sounds present (faint). Absent: non tender, guarding, rebound Abdominal Tenderness: RLQ, LLQ Hernia: none - Incision Incision: Present: clean and dry, intact - Neurologic CN 2-12 grossly intact - Psychiatric oriented to time, oriented to person, oriented to place, speech is normal, memory intact - Labs 05/01/18 03:31 05/01/18 03:31 Diabetes panel 05/01/18 Range/Units 03:31 Sodium 139 (136-145) mEq/L Potassium 3.6 (3.5-5.1) mEq/L Chloride 101 (98-107) mEq/L Carbon Dioxide 29 (23-29) mEq/L BUN 25 H (8-23) mg/dL Creatinine 0.56 L (0.70-1.30) mg/dL Glucose 90 (70-105) mg/dL Calcium 8.5 L (8.6-10.3) mg/dL Calcium panel 05/01/18 Range/Units 03:31 Calcium 8.5 L (8.6-10.3) mg/dL Pituitary panel 05/01/18 Range/Units 03:31 Sodium 139 (136-145) mEq/L Potassium 3.6 (3.5-5.1) mEq/L Chloride 101 (98-107) mEq/L Carbon Dioxide 29 (23-29) mEq/L BUN 25 H (8-23) mg/dL Creatinine 0.56 L (0.70-1.30) mg/dL Glucose 90 (70-105) mg/dL Calcium 8.5 L (8.6-10.3) mg/dL Adrenal panel 05/01/18 Range/Units 03:31 Sodium 139 (136-145) mEq/L Potassium 3.6 (3.5-5.1) mEq/L Chloride 101 (98-107) mEq/L Carbon Dioxide 29 (23-29) mEq/L BUN 25 H (8-23) mg/dL Creatinine 0.56 L (0.70-1.30) mg/dL Glucose 90 (70-105) mg/dL Calcium 8.5 L (8.6-10.3) mg/dL - VTE Documentation of Mechanical Device: Intermittent pneumatic compression device Consult Discharge Plan - Plan Referrals: Virgilio Sanchez MD [Primary Care Provider] - 05/08/18 10:45 am
[2018-05-01] MEDS ORDERED: SODIUM CHLORIDE/NAHCO3/KCL/PEG 4,000 ML SOLN.RECON PO ONE (10:20)
[2018-05-01] MEDS ORDERED: Ketorolac 30 MG/ML VIAL IVP ONE (11:49)
[2018-05-01] MEDS: *HR* Metoprolol 5 MG/5 ML VIAL IVP SCH ×3 (12:28→23:12)
[2018-05-01] MEDS: MetroNIDAZOLE 500 MG/100 ML 500 MG/100 ML BAG IVPB SCH ×2 (17:30→23:12)
--- NOTE | 2018-05-01 18:22 | Electrocardiograph Report ---
[address] [place], [place] [address] Test Date: 2018-04-26 Pat Name: Misha Freed Department: 104 Room: 2N12 Gender: M [employer]: [place] : 1950 Requested By: [id number] Order Number: [id number] Reading MD: Jeff Callahan Measurements Intervals [place] Rate: 108 P: 60 IA: 160 QRS: 46 QRSD: 91 T: 153 QT: 317 QTc: 380 Interpretive Statements SINUS TACHYCARDIA WITH OCCASIONAL SUPRAVENTRICULAR PREMATURE COMPLEXES ANTEROLATERAL ISCHEMIA Electronically Signed On 05-01-2018 18:20:51 EDT by Jeff Callahan
--- NOTE | 2018-05-01 18:33 | Internal Med Progress Note ---
Date of Encounter: 05/01/18 Time of Encounter: 11:00 - Assessment and plan (1) Small bowel obstruction Current Visit: Yes Status: Acute Assessment and plan: SBO with transition point at umbilical hernia. Hernia mechanically reduced by surgery in ED. Surgery following. s/p surgical correction 04/28. Improved clinically. Continue to monitor. c/w Cipro and Flagyl. NG tube decompression. Changed from suction to gravity today. Trial of clears. (2) COPD (chronic obstructive pulmonary disease) Current Visit: No Status: Acute Assessment and plan: Stable. not in exacerbation. Qualifiers: COPD type: chronic bronchitis Chronic bronchitis type: unspecified Qualified Code(s): J42 - Unspecified chronic bronchitis (3) Umbilical hernia Current Visit: Yes Status: Acute Assessment and plan: Umbilical hernia mechanically reduced in ED. NGT decompression currently for SBO. s/p surgical repair 04/28/18. follow surgery recommendations. Qualifiers: Obstruction and gangrene presence: with obstruction but without gangrene Qualified Code(s): K42.0 - Umbilical hernia with obstruction, without gangrene (4) NUNU (acute kidney injury) Current Visit: Yes Status: Resolved Assessment and plan: resolved (5) Abnormal EKG Current Visit: Yes Status: Acute Assessment and plan: Reported T wave depressions on presentation. EKG 04/28 with new t wave inversions with elevated troponins in setting of SBO and NUNU. Denies chest pain however. Evaluated by cardiology. KAPIL with EF 55%, atypical septal motion c/w BBB. Will follow up outpatient after discharge. (6) SIRS (systemic inflammatory response syndrome) Current Visit: Yes Status: Acute Assessment and plan: - 2 SIRS criteria on admission. Lactic acidoses and episodes of hypotension were present in ED requiring IV fluids - Unsure if this is genuinely infection or a stress reaction. Possible sources would be intra abdominal, or cellulitis around umbilical area. Leukocytosis significantly improved. c/w Cipro and Flagyl day 5 of 7. - Time Spent With Patient Total time spent is greater than 50% in coordination of care (as documented) at patient's floor/unit and/or counseling patient: - Subjective Interval history: Patient reports improvement in abdominal distension and pain - Constitutional Vitals: Temp Pulse Resp BP Pulse Ox 98.4 F 105 16 133/74 94 05/01/18 16:15 05/01/18 16:15 07/23/18 16:33 05/01/18 16:15 05/01/18 16:33 General: Alert and oriented. NGT in place. Skin: Normal color, no rash, no lesions. HEENT: EOMI, pupils equal, round and reactive. Cardiovascular: Regular rate, regular rhythm. No murmurs appreciated. Lungs:Normal breath sounds, no wheezes or crackles. Abdomen:Soft, mild periumbilical tenderness. Distended abdomen, erythematous. Extremities:No deformity, no edema or tenderness, no joint swelling or clubbing. Neurological:Normal cognition, no weakness, no numbness. Rest of the physical exam is non contributory Internal Medicine: Result - Labs CBC & Chem 7: 05/01/18 03:31 05/01/18 03:31 Labs: Short CBC 05/01/18 Range/Units 03:31 WBC 14.9 H (4.3-11.1) K/mcL Hgb 12.0 L (12.9-16.9) g/dL Hct 35.8 L (37.5-50.1) % Plt Count 379 (140-400) K/mcL Neutrophils # 10.3 H (1.6-8.9) K/mcL BMP 05/01/18 03:31 Sodium 139 Potassium 3.6 Chloride 101 Carbon Dioxide 29 BUN 25 H Creatinine 0.56 L Glucose 90 Calcium 8.5 L - ABG Interpretation ABG results: PT/INR, D-dimer PT 13.2 Seconds (9.4-12.1) H 04/26/18 13:34 - VTE Documentation of Mechanical Device: Intermittent pneumatic compression device Consult Discharge Plan - Plan Referrals: Virgilio Sanchez MD [Primary Care Provider] - 05/08/18 10:45 am
[2018-05-02] MEDS: Ipratropium/Albuterol Neb 3 ML IH SCH ×5 (03:24→20:13)
[2018-05-02] MEDS: Metoclopramide 20 MG in 0.9 % Sodium Chloride 50 ML IVPB SCH (03:44)
[2018-05-02 04:30] LABS: Hematocrit 33.6 % (37.5-50.1); Hemoglobin 11.4 g/dL (12.9-16.9); Mean Corpuscular HGB Conc 33.9 g/dL (31.6-35.5); Mean Corpuscular Hemoglobin 30.4 pg (28.0-33.3); Mean Corpuscular Volume 89.6 fL (83.0-100.0); Mean Platelet Volume 9.8 fL (9.4-12.4); Platelet Count 347 K/mcL (140-400); Red Blood Count 3.75 M/mcL (4.19-5.50); Red Cell Distribution Width 14.7 % (11.5-14.5)
[2018-05-02 04:49] LABS: Albumin 2.9 g/dL (3.5-5.7); BUN/Creatinine Ratio 42 (6-26); Blood Urea Nitrogen 20 mg/dL (8-23); Calcium 8.4 mg/dL (8.6-10.3); Carbon Dioxide 29 mEq/L (23-29); Chloride 97 mEq/L (98-107); Glucose 125 mg/dL (70-105); Magnesium 1.9 mg/dL (1.6-2.6); Osmolality,Calculated 286 (280-300); Phosphorous 3.4 mg/dL (2.7-4.5); Potassium 3.2 mEq/L (3.5-5.1); Sodium 136 mEq/L (136-145); eGFR For Non-African Americans > 60 (> 60)
[2018-05-02 04:58] LABS: Lymphocytes # 3.3 K/mcL (0.6-4.6); Monocytes # 0.3 K/mcL (0.0-1.3); Neutrophils # 11.6 K/mcL (1.6-8.9)
[2018-05-02 04:59] LABS: Platelet Estimate Normal (Normal)
[2018-05-02] MEDS: *HR* Metoprolol 5 MG/5 ML VIAL IVP SCH ×4 (06:03→23:10)
[2018-05-02] MEDS: Pantoprazole 40 MG VIAL IVP SCH ×2 (06:07→17:19)
[2018-05-02] MEDS: *HR* Heparin 5,000 UNIT/ML VIAL SQ SCH ×2 (06:10→17:18)
[2018-05-02] MEDS: OXYCODONE Oral CONC 10 MG/0.5 ML ORAL.SYG SL PRN (06:17)
[2018-05-02] MEDS ORDERED: Methylnaltrexone 12 MG/0.6 ML SYRINGE SQ ONE (08:06)
[2018-05-02] MEDS ORDERED: Lidocaine -MPF 1% 5 ML AMPUL INFILT ONE (09:22)
--- NOTE | 2018-05-02 10:16 | General Surgery Progress Note ---
<Radha Jasso - Last Filed: 05/02/18 10:12> Date of Encounter: 05/02/18 Time of Encounter: 08:00 - Assessment and Plan (1) Umbilical hernia Current Visit: Yes Status: Acute Date of procedure: 04/28/18 Pre-op diagnosis: Recurrent Incisional hernia Post-op diagnosis: same Procedure: Robotic Recurrent Incisional hernia repair mesh Surgeon: Dr. Bess POD#4 as above. Noted abdominal distention, firm, but not rigid, and absent bowel sounds. NG remains in place, he is on Reglan. NG has been laced to Crocker. If he has nausea or abdominal pain returned to suction. He does have too small areas of erythema on the abdomen per-umbilical and left lower quadrant. There is no drainage. He is noted to be febrile (Tmax 99.6 rectal). 14.9>>16.5 and is without bandemia. Plan: continue supportive care and discomfort management while awaiting return of bowel function -scheduled Toradol 15 mg Q6 hours -PRN sublingual oxycodone for breakthrough pain (recommend attempt to limit narcotics given continued postoperative ileus) -continue NG to Crocker bag. If he experiences nausea, vomiting, or increase abdominal discomfort returned to suction -continue Reglan -add methylnaltrexone x1; may be repeated on 05/04/2018 if indicated ambulate TID and out of bed to chair at least 3 times daily PICC and TPN for protein calorie malnutrition Aggressive pulmonary toileting, accunebs, out of bed to chair at least TID, ambulate TID Consult PT/OT for mobilization Qualifiers: Obstruction and gangrene presence: with obstruction but without gangrene Qualified Code(s): K42.0 - Umbilical hernia with obstruction, without gangrene (2) Ileus, postoperative Current Visit: Yes Status: Acute AAS 05/02/2018 with continued ileus. See a/p above for further detail (reglan, relistor, NG) (3) COPD (chronic obstructive pulmonary disease) Current Visit: No Status: Acute Continue home Respimat consult respiratory therapy for aggressive pulmonary toileting, AccuNeb's Qualifiers: COPD type: chronic bronchitis Chronic bronchitis type: unspecified Qualified Code(s): J42 - Unspecified chronic bronchitis (4) Fever, unknown origin Current Visit: Yes Status: Acute Chest x-ray PA and LAT, urinalysis with reflux to culture, blood cultures times 2 prior to pick insertion. Scheduled Toradol for pain will also be effective for fever. We will continue to monitor. There is no overt indication for an abdominal source at this time. Consideration given to further exploration of fever if indicated. (5) Electrolyte imbalance Current Visit: Yes Status: Acute Replaced potassium today with 40 mEq IV repeat a.m. labs continue to follow (6) Protein calorie malnutrition Current Visit: Yes Status: Acute Day 6 or 7 of NPO. Postoperative ileus remains. See a/p above Qualifiers: Protein-calorie malnutrition severity: mild Qualified Code(s): E44.1 - Mild protein-calorie malnutrition Subjective Patient reports: still having pain, pain is less, voiding w/o difficulty, no flatus, no bowel movement Narrative: feels bloated, sore, and full. denies cough or urinary symptoms. states feels feverish and needs washcloth on head. Objective Vital Signs - Last 8 Hours Temp Pulse Resp BP Pulse Ox 05/02/18 09:55 99.6 F 05/02/18 07:58 16 97 05/02/18 07:18 99.0 F 104 19 143/79 95 05/02/18 03:32 98.0 F 105 18 153/68 100 05/02/18 03:24 16 97 Intake and Output 05/01/18 05/02/18 05/02/18 23:59 07:59 15:59 Intake Total 704 / 704 594 / 594 Output Total 245 / 245 300 / 300 Balance 459 / 459 294 / 294 Intake: IV Fluids 354 / 354 354 / 354 Cipro Premix 400 MG/200 ML 400 200 / 200 200 / 200 mg In 200 ml @ 200 mls/hr IVPB Q12HR [facility] Rx#:[id number] Reglan 20 MG In 0.9 % Sodium 54 / 54 54 / 54 Chloride 50 ML @ 108 mls/hr IVPB Q8H [facility] Rx#:[id number] Flagyl Premix 500 MG/100 ML 500 100 / 100 100 / 100 mg In 100 ml @ 100 mls/hr IVPB Q8HR [facility] Rx#:[id number] Oral 350 / 350 240 / 240 Output: Urine 245 / 245 300 / 300 Other: Meal Lunch npo testing Percent of Meal Consumed 0% # Voids 2 Weight 69.1 kg Blood Glucose* 134 115 Patient Weight 05/02/18 23:59 Weight 69.1 kg VITAL SIGNS: Reviewed. See [facility] GENERAL: In no apparent distress. HEENT: Normocephalic, atraumatic, pupils are equal and reactive, oropharynx is pink and dry, there is no neck adenopathy or JVD noted. edentulous. CHEST/RESPIRATORY: The thorax is free from signs of trauma. Lung sounds: decreased course breath sounds CARDIAC: Regular rate and rhythm. Normal S1 and S2, without murmurs, gallops, or rubs. VASCULAR: No Edema. 2+ peripheral pulses. ABDOMEN: firm, distended, tympanic, absent bowel sounds, periumbilical erythema, left lower quadrant erythema, INCISION: Surgical incision is clean, dry, and intact. There are 2 areas of erythema noted detailed above. WOUNDS/DRAINS: NG noted to crocker bag MUSCULOSKELETAL: Good range of motion of all major joints. Extremities without clubbing, cyanosis or edema. NEUROLOGIC EXAM: Alert and oriented x 3. Speech normal. Follows commands. PSYCHIATRIC: Mood normal. SKIN: No rash or lesions. - Labs 05/02/18 04:04 05/02/18 04:04 Diabetes panel 05/02/18 Range/Units 04:04 Sodium 136 (136-145) mEq/L Potassium 3.2 L (3.5-5.1) mEq/L Chloride 97 L (98-107) mEq/L Carbon Dioxide 29 (23-29) mEq/L BUN 20 (8-23) mg/dL Creatinine 0.48 L (0.70-1.30) mg/dL Glucose 125 H (70-105) mg/dL Calcium 8.4 L (8.6-10.3) mg/dL Albumin 2.9 L (3.5-5.7) g/dL Calcium panel 05/02/18 Range/Units 04:04 Calcium 8.4 L (8.6-10.3) mg/dL Phosphorus 3.4 (2.7-4.5) mg/dL Albumin 2.9 L (3.5-5.7) g/dL Pituitary panel 05/02/18 Range/Units 04:04 Sodium 136 (136-145) mEq/L Potassium 3.2 L (3.5-5.1) mEq/L Chloride 97 L (98-107) mEq/L Carbon Dioxide 29 (23-29) mEq/L BUN 20 (8-23) mg/dL Creatinine 0.48 L (0.70-1.30) mg/dL Glucose 125 H (70-105) mg/dL Calcium 8.4 L (8.6-10.3) mg/dL Adrenal panel 05/02/18 Range/Units 04:04 Sodium 136 (136-145) mEq/L Potassium 3.2 L (3.5-5.1) mEq/L Chloride 97 L (98-107) mEq/L Carbon Dioxide 29 (23-29) mEq/L BUN 20 (8-23) mg/dL Creatinine 0.48 L (0.70-1.30) mg/dL Glucose 125 H (70-105) mg/dL Calcium 8.4 L (8.6-10.3) mg/dL Albumin 2.9 L (3.5-5.7) g/dL - VTE Documentation of Mechanical Device: Intermittent pneumatic compression device Consult Discharge Plan - Plan Referrals: Virgilio Sanchez MD [Primary Care Provider] - 05/08/18 10:45 am <Wing Antunez - Last Filed: 05/03/18 09:49> Date of Encounter: 05/02/18 Objective Vital Signs - Last 8 Hours Temp Pulse Resp BP Pulse Ox 05/03/18 08:55 98 05/03/18 08:08 97.6 F 82 18 133/83 95 05/03/18 07:46 98.8 F 103 18 168/88 95 05/03/18 07:30 18 95 05/03/18 03:26 99.1 F 92 16 155/81 94 Intake and Output 05/02/18 05/03/18 05/03/18 23:59 07:59 15:59 Intake Total 1622 / 1622 350 / 350 200 / 200 Output Total 425 / 425 0 / 0 Balance 1197 / 1197 350 / 350 200 / 200 Intake: IV Fluids 1622 / 1622 350 / 350 200 / 200 0.9 % Sodium Chloride 1,000 ML 800 / 800 0 / 0 @ 100 mls/hr IVC .Q10H [facility] Rx#: [id number] Cipro Premix 400 MG/200 ML 400 200 / 200 200 / 200 mg In 200 ml @ 200 mls/hr IVPB Q12HR [facility] Rx#:[id number] Intralipid 20% 250 ML @ 21 mls/ 250 / 250 hr IVPB DAILY@1700 [facility] Rx#: [id number] Flagyl Premix 500 MG/100 ML 500 100 / 100 100 / 100 mg In 100 ml @ 100 mls/hr IVPB Q8HR [facility] Rx#:[id number] Oral 0 / 0 Output: Urine 425 / 425 0 / 0 Other: Stool Size Small Stool Consistency loose liquid Stool Characteristics Mucoid Stool Color Brown # Bowel Movement Diapers 1 Weight 69 kg Blood Glucose* 132 123 125 - Labs 05/02/18 04:04 05/03/18 04:00 Diabetes panel 05/03/18 Range/Units 04:00 Sodium 135 L (136-145) mEq/L Potassium 3.2 L (3.5-5.1) mEq/L Chloride 100 (98-107) mEq/L Carbon Dioxide 27 (23-29) mEq/L BUN 16 (8-23) mg/dL Creatinine 0.44 L (0.70-1.30) mg/dL Glucose 127 H (70-105) mg/dL Calcium 8.1 L (8.6-10.3) mg/dL Triglycerides 78 (< 150) mg/dL Calcium panel 05/03/18 Range/Units 04:00 Calcium 8.1 L (8.6-10.3) mg/dL Phosphorus 3.3 (2.7-4.5) mg/dL Pituitary panel 05/03/18 Range/Units 04:00 Sodium 135 L (136-145) mEq/L Potassium 3.2 L (3.5-5.1) mEq/L Chloride 100 (98-107) mEq/L Carbon Dioxide 27 (23-29) mEq/L BUN 16 (8-23) mg/dL Creatinine 0.44 L (0.70-1.30) mg/dL Glucose 127 H (70-105) mg/dL Calcium 8.1 L (8.6-10.3) mg/dL Adrenal panel 05/03/18 Range/Units 04:00 Sodium 135 L (136-145) mEq/L Potassium 3.2 L (3.5-5.1) mEq/L Chloride 100 (98-107) mEq/L Carbon Dioxide 27 (23-29) mEq/L BUN 16 (8-23) mg/dL Creatinine 0.44 L (0.70-1.30) mg/dL Glucose 127 H (70-105) mg/dL Calcium 8.1 L (8.6-10.3) mg/dL - Attending Attestation I examined this patient and my medical decision-making was reviewed with the Resident Physician. I agree with the documented findings, disposition and treatment plan as described except to the extent set forth below. The patient is seen and evaluated on morning rounds with the resident. He continues to be distended with few bowel sounds. We will leave the nasogastric tube in place for today and try to advance his diet tomorrow. He continues to have a severe postoperative ileus. Wing Antunez MD FACS
[2018-05-02] MEDS ORDERED: Potassium Chloride 40 MEQ, Lidocaine 1% 2 ML in D5% in Water 500 ML IVPB ONE (10:19)
[2018-05-02] MEDS: Albuterol Neb 1.25 MG/3 ML VIAL IH SCH ×3 (11:15→20:13)
[2018-05-02] MEDS: 0.9 % Sodium Chloride 1,000 ML IVC SCH (11:39)
[2018-05-02] MEDS: MetroNIDAZOLE 500 MG/100 ML 500 MG/100 ML BAG IVPB SCH ×3 (11:40→23:20)
[2018-05-02] MEDS: Ketorolac 15 MG/ML VIAL IVP SCH ×3 (11:42→23:14)
[2018-05-02] MEDS: Metoclopramide 10 MG/2 ML VIAL IVP SCH ×3 (11:42→23:12)
[2018-05-02] MEDS ORDERED: D10% in Water 500 ML IVC PRN (11:49)
--- NOTE | 2018-05-02 16:24 | Internal Med Progress Note ---
Date of Encounter: 05/02/18 Time of Encounter: 11:00 - Assessment and plan (1) Small bowel obstruction Current Visit: Yes Status: Acute Assessment and plan: Initial CT abdomen/pelvis showed high-grade small bowel obstruction with transition point in the umbilical hernia. Surgery has been consulted, patient underwent Robotic Recurrent Incisional hernia repair mesh on 04/28/18. Continues to have postoperative ileus and abdominal distention. Continue postop management per surgery-nothing by mouth, NG tube to gravity, started on TPN. Continue Reglan, pain control with when necessary oxycodone, received a dose of naltrexone today to help with constipation. Monitor and replete electrolytes as needed. Continue IV antibiotics- ciprofloxacin and Flagyl. (2) COPD (chronic obstructive pulmonary disease) Current Visit: Yes Status: Chronic Assessment and plan: Not in acute exacerbation. Continue when necessary bronchodilators, supplemental oxygen. Qualifiers: COPD type: chronic bronchitis Chronic bronchitis type: unspecified Qualified Code(s): J42 - Unspecified chronic bronchitis (3) Umbilical hernia Current Visit: Yes Status: Chronic Qualifiers: Obstruction and gangrene presence: with obstruction but without gangrene Qualified Code(s): K42.0 - Umbilical hernia with obstruction, without gangrene (4) NUNU (acute kidney injury) Current Visit: Yes Status: Resolved (5) SIRS (systemic inflammatory response syndrome) Current Visit: Yes Status: Acute Assessment and plan: - 2 SIRS criteria on admission. Lactic acidoses and episodes of hypotension were present in ED requiring IV fluids - Unsure if this is genuinely infection or a stress reaction. Continue IV antibiotics as above. Noted to have mild leukocytosis along with mild tachycardia, likely due to recent abdominal surgery. (6) Essential hypertension Current Visit: Yes Status: Chronic Assessment and plan: Blood pressure noted to be elevated, partly due to pain. Increase scheduled IV Lopressor. Will use when necessary IV hydralazine. - Time Spent With Patient Total time spent is greater than 50% in coordination of care (as documented) at patient's floor/unit and/or counseling patient: - Subjective Interval history: Reports abdominal pain around umbilicus. just Had PICC line placed in right arm and reports pain at the site as well. No fever, chills, nausea. Continues to have NG tube to gravity. Reports occasional flatus, no bowel movements yet. - Constitutional Vitals: Temp Pulse Resp BP Pulse Ox 98.8 F 88 18 168/74 93 05/02/18 11:35 05/02/18 12:27 05/02/18 11:35 05/02/18 11:35 05/02/18 11:35 General appearance: Present: mild distress, A&O X 3, answers questions appropriately - Respiratory Respiratory exam: Present: decreased breath sounds (at B/L bases), CTAB. Absent : accessory muscle use, rales, rhonchi, wheezes - Cardiovascular Cardiovascular exam: Present: RRR, +S1, +S2. Absent: diastolic murmur, gallop, rubs, systolic murmur - GI/Abdominal GI/Abdominal exam: Present: diminished bowel sounds, distended, soft ( tenderness in periumbilical area; mild reducible umbilical swelling; mild erythema over umbilicus and LLQ), no peritoneal signs. Absent: tenderness - Extremities Exam Extremities exam: Present: full ROM, warm, radial pulses palpable and symmetrical. Absent: calf tenderness, cyanotic, pedal edema - Neurological Exam Neurological exam: Present: CN II-XII intact, oriented X3, no focal deficits. Absent: pronater drift, facial droop, speech deficit Internal Medicine: Result - Labs CBC & Chem 7: 05/02/18 04:04 05/02/18 04:04 Labs: Short CBC 05/02/18 Range/Units 04:04 WBC 16.5 H (4.3-11.1) K/mcL Hgb 11.4 L (12.9-16.9) g/dL Hct 33.6 L (37.5-50.1) % Plt Count 347 (140-400) K/mcL Neutrophils # 11.6 H (1.6-8.9) K/mcL BMP 05/02/18 04:04 Sodium 136 Potassium 3.2 L Chloride 97 L Carbon Dioxide 29 BUN 20 Creatinine 0.48 L Glucose 125 H Calcium 8.4 L Liver Function 05/02/18 Range/Units 04:04 Albumin 2.9 L (3.5-5.7) g/dL - ABG Interpretation ABG results: PT/INR, D-dimer PT 13.2 Seconds (9.4-12.1) H 04/26/18 13:34 - Impressions Impressions Chest/Abdomen X-ray 05/02/18 08:17 IMPRESSION: 1. No acute cardiopulmonary findings. 2. No free air. 3. Enteric tube is looped within the gastric fundus. 4. Persistent air-filled dilated loops of small bowel, which may reflect ileus given recent surgery. D/ / 05/02/2018 10:14:32 Shellie Cross MD / [email or web address] Interpreting Provider: Shellie Cross MD - VTE Documentation of Mechanical Device: Intermittent pneumatic compression device Consult Discharge Plan - Plan Referrals: Virgilio Sanchez MD [Primary Care Provider] - 05/08/18 10:45 am
[2018-05-02] MEDS ORDERED: Clinimix E 5%-15% SOLUTION 2,000 ML with MVI, adult with vitamin K 10 ML IVC SCH (17:00)
[2018-05-02 18:24] LABS: Bilirubin,Urine Small (Negative); Blood,Urine Negative (Negative); Clarity,Urine Clear (Clear); Color,Urine Dark Yellow (Yellow); Glucose,Urine (UA) Normal (Normal); Ketones,Urine 15 mg/dL (Negative); Leukocyte Esterase,Urine Trace (Negative); Nitrite,Urine Positive (Negative); Protein,Urine 30 mg/dL (Neg-Trace); Specific Gravity,Urine 1.025 (1.010-1.025); Urobilinogen,Urine Normal (Normal)
[2018-05-02 18:26] LABS: Bacteria,Urine None Seen per hpf (None-Few); Hyaline Casts,Urine None Seen per lpf (None-Few); RBC,Urine 0-3 per hpf (0-3); Squamous Epithelial Cell,Urine Many per lpf (None-Few); WBC,Urine 0-3 per hpf (0-3)
[2018-05-02] MEDS: Bisacodyl 10 MG RECTAL SUPPOSITORY RC SCH (20:45)
[2018-05-03] MEDS: Ipratropium/Albuterol Neb 3 ML IH SCH ×7 (00:54→23:40)
[2018-05-03 04:36] LABS: BUN/Creatinine Ratio 36 (6-26); Blood Urea Nitrogen 16 mg/dL (8-23); Calcium 8.1 mg/dL (8.6-10.3); Carbon Dioxide 27 mEq/L (23-29); Chloride 100 mEq/L (98-107); Glucose 127 mg/dL (70-105); Magnesium 1.7 mg/dL (1.6-2.6); Osmolality,Calculated 283 (280-300); Phosphorous 3.3 mg/dL (2.7-4.5); Potassium 3.2 mEq/L (3.5-5.1); Sodium 135 mEq/L (136-145); Triglycerides 78 mg/dL (< 150); eGFR For Non-African Americans > 60 (> 60)
[2018-05-03] MEDS: Albuterol Neb 1.25 MG/3 ML VIAL IH SCH ×2 (04:40→07:35)
[2018-05-03] MEDS: Ketorolac 15 MG/ML VIAL IVP SCH ×4 (05:31→23:23)
[2018-05-03] MEDS: Metoclopramide 10 MG/2 ML VIAL IVP SCH ×4 (05:33→23:23)
[2018-05-03] MEDS: Pantoprazole 40 MG VIAL IVP SCH (05:34)
[2018-05-03] MEDS: *HR* Metoprolol 5 MG/5 ML VIAL IVP SCH ×4 (05:36→23:23)
[2018-05-03] MEDS: *HR* Heparin 5,000 UNIT/ML VIAL SQ SCH ×2 (05:45→17:00)
[2018-05-03] MEDS: 0.9 % Sodium Chloride 1,000 ML IVC SCH ×2 (06:11→16:56)
[2018-05-03] MEDS: MetroNIDAZOLE 500 MG/100 ML 500 MG/100 ML BAG IVPB SCH ×2 (08:37→16:56)
--- NOTE | 2018-05-03 08:59 | General Surgery Progress Note ---
<Kingsley Moody - Last Filed: 05/03/18 09:14> Date of Encounter: 05/03/18 Time of Encounter: 08:51 - Assessment and Plan (1) Umbilical hernia Current Visit: Yes Status: Chronic Continue to have Abdominal Distension - Despite reglan and fleet's enema (x2 last tue and mon) patient still has not had bowel movement, but passing minimal gas. He is also having very faint bowel sounds. - Continue reglan therapy - Continue Simethicone for distension - D/C NG tube PICC and TPN given yesterday Patient okay for sips of clears < 300mL every 8 hours. Continue ABX, pain control, IVF per primary team's recommendations. Encourage ambulation and inspirative spirometry Serial abdominal exams Surgery will continue following the patient Qualifiers: Obstruction and gangrene presence: with obstruction but without gangrene Qualified Code(s): K42.0 - Umbilical hernia with obstruction, without gangrene Subjective Patient reports: feels better, pain is less, flatus, no bowel movement Narrative: patient still feeling bloated. Complains of lower quad abdominal pain. Still has not had BM but is passing gas. Objective Vital Signs - Last 8 Hours Temp Pulse Resp BP Pulse Ox 05/03/18 08:08 97.6 F 82 18 133/83 95 05/03/18 07:46 98.8 F 103 18 168/88 95 05/03/18 07:30 18 95 05/03/18 03:26 99.1 F 92 16 155/81 94 05/03/18 00:54 19 96 Intake and Output 05/02/18 05/03/18 05/03/18 23:59 07:59 15:59 Intake Total 1622 / 1622 350 / 350 200 / 200 Output Total 425 / 425 Balance 1197 / 1197 350 / 350 200 / 200 Intake: IV Fluids 1622 / 1622 350 / 350 200 / 200 0.9 % Sodium Chloride 1,000 ML 800 / 800 0 / 0 @ 100 mls/hr IVC .Q10H [facility] Rx#: [id number] Cipro Premix 400 MG/200 ML 400 200 / 200 200 / 200 mg In 200 ml @ 200 mls/hr IVPB Q12HR [facility] Rx#:[id number] Intralipid 20% 250 ML @ 21 mls/ 250 / 250 hr IVPB DAILY@1700 [facility] Rx#: [id number] Flagyl Premix 500 MG/100 ML 500 100 / 100 100 / 100 mg In 100 ml @ 100 mls/hr IVPB Q8HR [facility] Rx#:[id number] Output: Urine 425 / 425 Other: Weight 69 kg Blood Glucose* 132 123 125 - General physical appearance well developed, moderate distress - Respiratory normal expansion, normal respiratory effort - Cardiovascular Cardiovascular exam: Present: RRR, no murmurs/rubs/gallops - Abdomen Abdomen: Present: bowel sounds present (faint bowel sounds appreciated), distended Abdominal Tenderness: RUQ, RLQ - Neurologic CN 2-12 grossly intact - Psychiatric oriented to time, oriented to person, oriented to place, speech is normal, memory intact - Labs 05/02/18 04:04 05/03/18 04:00 Diabetes panel 05/03/18 Range/Units 04:00 Sodium 135 L (136-145) mEq/L Potassium 3.2 L (3.5-5.1) mEq/L Chloride 100 (98-107) mEq/L Carbon Dioxide 27 (23-29) mEq/L BUN 16 (8-23) mg/dL Creatinine 0.44 L (0.70-1.30) mg/dL Glucose 127 H (70-105) mg/dL Calcium 8.1 L (8.6-10.3) mg/dL Triglycerides 78 (< 150) mg/dL Calcium panel 05/03/18 Range/Units 04:00 Calcium 8.1 L (8.6-10.3) mg/dL Phosphorus 3.3 (2.7-4.5) mg/dL Pituitary panel 05/03/18 Range/Units 04:00 Sodium 135 L (136-145) mEq/L Potassium 3.2 L (3.5-5.1) mEq/L Chloride 100 (98-107) mEq/L Carbon Dioxide 27 (23-29) mEq/L BUN 16 (8-23) mg/dL Creatinine 0.44 L (0.70-1.30) mg/dL Glucose 127 H (70-105) mg/dL Calcium 8.1 L (8.6-10.3) mg/dL Adrenal panel 05/03/18 Range/Units 04:00 Sodium 135 L (136-145) mEq/L Potassium 3.2 L (3.5-5.1) mEq/L Chloride 100 (98-107) mEq/L Carbon Dioxide 27 (23-29) mEq/L BUN 16 (8-23) mg/dL Creatinine 0.44 L (0.70-1.30) mg/dL Glucose 127 H (70-105) mg/dL Calcium 8.1 L (8.6-10.3) mg/dL - VTE Documentation of Mechanical Device: Intermittent pneumatic compression device Consult Discharge Plan - Plan Referrals: Virgilio Sanchez MD [Primary Care Provider] - 05/08/18 10:45 am <Wing Antunez - Last Filed: 05/03/18 10:05> Date of Encounter: 05/03/18 Objective Vital Signs - Last 8 Hours Temp Pulse Resp BP Pulse Ox 05/03/18 08:55 98 05/03/18 08:08 97.6 F 82 18 133/83 95 05/03/18 07:46 98.8 F 103 18 168/88 95 05/03/18 07:30 18 95 05/03/18 03:26 99.1 F 92 16 155/81 94 Intake and Output 05/02/18 05/03/18 05/03/18 23:59 07:59 15:59 Intake Total 1622 / 1622 350 / 350 200 / 200 Output Total 425 / 425 0 / 0 Balance 1197 / 1197 350 / 350 200 / 200 Intake: IV Fluids 1622 / 1622 350 / 350 200 / 200 0.9 % Sodium Chloride 1,000 ML 800 / 800 0 / 0 @ 100 mls/hr IVC .Q10H [facility] Rx#: [id number] Cipro Premix 400 MG/200 ML 400 200 / 200 200 / 200 mg In 200 ml @ 200 mls/hr IVPB Q12HR [facility] Rx#:[id number] Intralipid 20% 250 ML @ 21 mls/ 250 / 250 hr IVPB DAILY@1700 [facility] Rx#: [id number] Flagyl Premix 500 MG/100 ML 500 100 / 100 100 / 100 mg In 100 ml @ 100 mls/hr IVPB Q8HR [facility] Rx#:[id number] Oral 0 / 0 Output: Urine 425 / 425 0 / 0 Other: Stool Size Small Stool Consistency loose liquid Stool Characteristics Mucoid Stool Color Brown # Bowel Movement Diapers 1 Weight 69 kg Blood Glucose* 132 123 125 - Labs 05/02/18 04:04 05/03/18 04:00 Diabetes panel 05/03/18 Range/Units 04:00 Sodium 135 L (136-145) mEq/L Potassium 3.2 L (3.5-5.1) mEq/L Chloride 100 (98-107) mEq/L Carbon Dioxide 27 (23-29) mEq/L BUN 16 (8-23) mg/dL Creatinine 0.44 L (0.70-1.30) mg/dL Glucose 127 H (70-105) mg/dL Calcium 8.1 L (8.6-10.3) mg/dL Triglycerides 78 (< 150) mg/dL Calcium panel 05/03/18 Range/Units 04:00 Calcium 8.1 L (8.6-10.3) mg/dL Phosphorus 3.3 (2.7-4.5) mg/dL Pituitary panel 05/03/18 Range/Units 04:00 Sodium 135 L (136-145) mEq/L Potassium 3.2 L (3.5-5.1) mEq/L Chloride 100 (98-107) mEq/L Carbon Dioxide 27 (23-29) mEq/L BUN 16 (8-23) mg/dL Creatinine 0.44 L (0.70-1.30) mg/dL Glucose 127 H (70-105) mg/dL Calcium 8.1 L (8.6-10.3) mg/dL Adrenal panel 05/03/18 Range/Units 04:00 Sodium 135 L (136-145) mEq/L Potassium 3.2 L (3.5-5.1) mEq/L Chloride 100 (98-107) mEq/L Carbon Dioxide 27 (23-29) mEq/L BUN 16 (8-23) mg/dL Creatinine 0.44 L (0.70-1.30) mg/dL Glucose 127 H (70-105) mg/dL Calcium 8.1 L (8.6-10.3) mg/dL - Attending Attestation I examined this patient and my medical decision-making was reviewed with the Resident Physician. I agree with the documented findings, disposition and treatment plan as described except to the extent set forth below. The patient is seen and evaluated with the resident on morning rounds. He continues to struggle with postoperative ileus. The abdomen is distended, however, he has good bowel sounds and minimal nasogastric tube output. We will remove the nasogastric tube today and start him on volume restricted clear liquids. Wing Antunez MD FACS
[2018-05-03 12:03] LABS: Eosinophils # 0.3 K/mcL (0.0-0.6); Hematocrit 30.5 % (37.5-50.1); Hemoglobin 10.2 g/dL (12.9-16.9); Mean Corpuscular HGB Conc 33.4 g/dL (31.6-35.5); Mean Corpuscular Hemoglobin 29.9 pg (28.0-33.3); Mean Corpuscular Volume 89.4 fL (83.0-100.0); Mean Platelet Volume 9.9 fL (9.4-12.4); Monocytes # 1.2 K/mcL (0.0-1.3); Platelet Count 270 K/mcL (140-400); Red Blood Count 3.41 M/mcL (4.19-5.50); Red Cell Distribution Width 14.6 % (11.5-14.5)
[2018-05-03 12:33] LABS: Lymphocytes # 2.7 K/mcL (0.6-4.6); Neutrophils # 10.6 K/mcL (1.6-8.9); Platelet Estimate Normal (Normal)
[2018-05-03] MEDS ORDERED: Clinimix E 5%-15% SOLUTION 2,000 ML with MVI, adult with vitamin K 10 ML IVC SCH (17:00)
--- NOTE | 2018-05-03 17:20 | Internal Med Progress Note ---
Date of Encounter: 05/03/18 Time of Encounter: 11:00 - Assessment and plan (1) Small bowel obstruction Current Visit: Yes Status: Acute Assessment and plan: Initial CT abdomen/pelvis showed high-grade small bowel obstruction with transition point in the umbilical hernia. Surgery has been consulted, patient underwent Robotic Recurrent Incisional hernia repair mesh on 04/28/18. Continues to have postoperative ileus and abdominal distention- somewhat improving, he did have bowel movement today. Continue postop management per surgery- NG tube has been discontinued today, started on clear liquids, on TPN. Continue Reglan, pain control with when necessary oxycodone; resume oral meds. Monitor and replete electrolytes as needed. Continue IV antibiotics- ciprofloxacin and Flagyl. Discontinue IV hydration. (2) COPD (chronic obstructive pulmonary disease) Current Visit: Yes Status: Chronic Qualifiers: COPD type: chronic bronchitis Chronic bronchitis type: unspecified Qualified Code(s): J42 - Unspecified chronic bronchitis (3) Umbilical hernia Current Visit: Yes Status: Chronic Qualifiers: Obstruction and gangrene presence: with obstruction but without gangrene Qualified Code(s): K42.0 - Umbilical hernia with obstruction, without gangrene (4) NUNU (acute kidney injury) Current Visit: Yes Status: Resolved (5) SIRS (systemic inflammatory response syndrome) Current Visit: Yes Status: Acute Assessment and plan: - 2 SIRS criteria on admission. Lactic acidosis and episodes of hypotension were present in ED requiring IV fluids - Unsure if this is genuinely infection or a stress reaction. Continue IV antibiotics as above. Noted to have mild leukocytosis along with mild tachycardia, likely due to recent abdominal surgery. (6) Essential hypertension Current Visit: Yes Status: Chronic Assessment and plan: Blood pressure noted to be elevated, partly due to pain. Resume oral antihypertensives. Will use when necessary IV hydralazine. - Time Spent With Patient Total time spent is greater than 50% in coordination of care (as documented) at patient's floor/unit and/or counseling patient: - Subjective Interval history: Feels better than yesterday. Had a small bowel movement this morning. NG tube has been removed, tolerates sips of water. Continues to have abdominal distention and pain around umbilicus. - Constitutional Vitals: Temp Pulse Resp BP Pulse Ox 98.6 F 78 16 172/74 96 05/03/18 15:55 05/03/18 15:55 05/03/18 15:55 05/03/18 15:55 05/03/18 15:55 General appearance: Present: A&O X 3, answers questions appropriately - Respiratory Respiratory exam: Present: CTAB. Absent: accessory muscle use, rales, rhonchi, wheezes - Cardiovascular Cardiovascular exam: Present: RRR, +S1, +S2, tachycardia. Absent: diastolic murmur, gallop, rubs, systolic murmur - GI/Abdominal GI/Abdominal exam: Present: diminished bowel sounds, distended, soft ( tenderness in periumbilical and lower abdomen), no peritoneal signs. Absent: tenderness Internal Medicine: Result - Labs CBC & Chem 7: 05/03/18 10:20 05/03/18 04:00 Labs: Short CBC 05/03/18 Range/Units 10:20 WBC 14.7 H (4.3-11.1) K/mcL Hgb 10.2 L (12.9-16.9) g/dL Hct 30.5 L (37.5-50.1) % Plt Count 270 (140-400) K/mcL Neutrophils # 10.6 H (1.6-8.9) K/mcL BMP 05/03/18 04:00 Sodium 135 L Potassium 3.2 L Chloride 100 Carbon Dioxide 27 BUN 16 Creatinine 0.44 L Glucose 127 H Calcium 8.1 L Urine 05/02/18 Range/Units 18:00 Urine Color Dark Yellow (Yellow) Urine Clarity Clear (Clear) Urine pH 7.0 (5.0-8.0) pH Units Ur Specific [place] 1.025 (1.010-1.025) Urine Protein 30 H (Neg-Trace) mg/dL Urine Glucose (UA) Normal (Normal) mg/dL - ABG Interpretation ABG results: PT/INR, D-dimer PT 13.2 Seconds (9.4-12.1) H 04/26/18 13:34 - VTE Documentation of Mechanical Device: Intermittent pneumatic compression device Consult Discharge Plan - Plan Referrals: Virgilio Sanchez MD [Primary Care Provider] - 05/08/18 10:45 am Breanna Ocampo CNP [Advanced Practice Nurse] - 05/15/18 1:30 pm
[2018-05-03] MEDS: OXYCODONE Oral CONC 10 MG/0.5 ML ORAL.SYG SL PRN (20:15)
[2018-05-03] MEDS: Bisacodyl 10 MG RECTAL SUPPOSITORY RC SCH (20:15)
[2018-05-04] MEDS: Ipratropium/Albuterol Neb 3 ML IH SCH ×5 (03:46→19:46)
[2018-05-04 04:05] LABS: BUN/Creatinine Ratio 37 (6-26); Blood Urea Nitrogen 17 mg/dL (8-23); Carbon Dioxide 24 mEq/L (23-29); Chloride 100 mEq/L (98-107); Glucose 127 mg/dL (70-105); Magnesium 1.7 mg/dL (1.6-2.6); Osmolality,Calculated 275 (280-300); Phosphorous 3.8 mg/dL (2.7-4.5); Potassium 3.5 mEq/L (3.5-5.1); Sodium 131 mEq/L (136-145); eGFR For Non-African Americans > 60 (> 60)
[2018-05-04] MEDS: Metoclopramide 10 MG/2 ML VIAL IVP SCH ×3 (05:00→17:41)
[2018-05-04] MEDS: Ketorolac 15 MG/ML VIAL IVP SCH ×2 (05:00→11:43)
[2018-05-04] MEDS: *HR* Metoprolol 5 MG/5 ML VIAL IVP SCH ×2 (05:00→11:43)
[2018-05-04] MEDS: *HR* Heparin 5,000 UNIT/ML VIAL SQ SCH ×2 (05:06→17:41)
--- NOTE | 2018-05-04 08:40 | General Surgery Progress Note ---
<Kingsley Moody - Last Filed: 05/04/18 08:59> Date of Encounter: 05/04/18 Time of Encounter: 09:01 - Assessment and Plan (1) Umbilical hernia Current Visit: Yes Status: Chronic Continues to have Abdominal Distension - Bowel function appears to be returning slowly. Patient has had a bowel movment and has high pitched bowel sounds ( indicating dilated small bowel). Will continue reglan and order Methylnaltrexone to help increase bowel function. Patient had NG tube pulled yesterday and is tolerating it. - Continue reglan therapy - Continue Simethicone for distension - Continue sips of clears < 300 mL every 8 hours PICC and TPN given yesterday Continue ABX, pain control, IVF per primary team's recommendations. Encourage ambulation and inspirative spirometry Serial abdominal exams Surgery will continue following the patient Qualifiers: Obstruction and gangrene presence: with obstruction but without gangrene Qualified Code(s): K42.0 - Umbilical hernia with obstruction, without gangrene Subjective Patient reports: still having pain, tolerating liquids well, flatus, bowel movement Narrative: Patient had a small bowel movement today. Patient reports feeling moderate abdominal pain and distension. He is tolerating sips of clears (<300cc Q8). He is passing gas. Objective Vital Signs - Last 8 Hours Temp Pulse Resp BP Pulse Ox 05/04/18 07:37 16 93 05/04/18 06:36 99.0 F 104 16 162/73 93 05/04/18 03:59 99.3 F 98 18 166/85 92 Intake and Output 05/03/18 05/04/18 05/04/18 23:59 07:59 15:59 Intake Total 1960 / 1960 280 / 280 Output Total 200 / 200 250 / 250 100 / 100 Balance 1760 / 1760 30 / 30 -100 / -100 Intake: IV Fluids 1900 / 1900 250 / 250 0.9 % Sodium Chloride 1,000 ML 100 / 100 @ 100 mls/hr IVC .Q10H [facility] Rx#: [id number] Clinimix E 5%-15% SOLUTION 2, 1800 / 1800 000 ML @ 50 mls/hr IVC .Q24H [facility] with M.v.i. Adult 10 ml Rx# :[id number] Intralipid 20% 250 ML @ 21 mls/ 250 / 250 hr IVPB DAILY@1700 [facility] Rx#: [id number] Oral 60 / 60 30 / 30 Output: Urine 200 / 200 250 / 250 100 / 100 Other: Meal Dinner Percent of Meal Consumed 0% Weight 76.4 kg 69.6 kg Blood Glucose* 120 120 128 Patient Weight 05/04/18 23:59 Weight 69.6 kg - General physical appearance well developed, moderate distress - Cardiovascular Cardiovascular exam: Present: RRR, no murmurs/rubs/gallops - Abdomen Abdomen: Present: bowel sounds present (high pitched) Abdominal Tenderness: RLQ, LLQ - Incision Incision: Present: clean and dry, intact - Neurologic CN 2-12 grossly intact - Psychiatric oriented to time, oriented to person, oriented to place, speech is normal, memory intact - Labs 05/03/18 10:20 05/04/18 03:31 Diabetes panel 05/04/18 Range/Units 03:31 Sodium 131 L (136-145) mEq/L Potassium 3.5 (3.5-5.1) mEq/L Chloride 100 (98-107) mEq/L Carbon Dioxide 24 (23-29) mEq/L BUN 17 (8-23) mg/dL Creatinine 0.46 L (0.70-1.30) mg/dL Glucose 127 H (70-105) mg/dL Calcium 8.0 L (8.6-10.3) mg/dL Calcium panel 05/04/18 Range/Units 03:31 Calcium 8.0 L (8.6-10.3) mg/dL Phosphorus 3.8 (2.7-4.5) mg/dL Pituitary panel 05/04/18 Range/Units 03:31 Sodium 131 L (136-145) mEq/L Potassium 3.5 (3.5-5.1) mEq/L Chloride 100 (98-107) mEq/L Carbon Dioxide 24 (23-29) mEq/L BUN 17 (8-23) mg/dL Creatinine 0.46 L (0.70-1.30) mg/dL Glucose 127 H (70-105) mg/dL Calcium 8.0 L (8.6-10.3) mg/dL Adrenal panel 05/04/18 Range/Units 03:31 Sodium 131 L (136-145) mEq/L Potassium 3.5 (3.5-5.1) mEq/L Chloride 100 (98-107) mEq/L Carbon Dioxide 24 (23-29) mEq/L BUN 17 (8-23) mg/dL Creatinine 0.46 L (0.70-1.30) mg/dL Glucose 127 H (70-105) mg/dL Calcium 8.0 L (8.6-10.3) mg/dL - VTE Documentation of Mechanical Device: Intermittent pneumatic compression device Consult Discharge Plan - Plan Referrals: Virgilio Sanchez MD [Primary Care Provider] - 05/08/18 10:45 am Breanna Ocampo CNP [Advanced Practice Nurse] - 05/15/18 1:30 pm <Wing Antunez - Last Filed: 05/04/18 21:54> Date of Encounter: 05/04/18 Objective Vital Signs - Last 8 Hours Temp Pulse Resp BP Pulse Ox 05/04/18 20:49 93 05/04/18 20:14 99.6 F 115 16 171/65 93 05/04/18 19:46 18 94 05/04/18 15:26 14 93 05/04/18 15:00 98.5 F 106 14 146/73 93 Intake and Output 05/04/18 05/04/18 05/04/18 07:59 15:59 23:59 Intake Total 280 / 280 780 / 780 0 / 0 Output Total 250 / 250 100 / 100 200 / 200 Balance 30 30 680 / 680 -200 / -200 Intake: IV Fluids 250 / 250 600 / 600 0.9 % Sodium Chloride 1,000 ML 600 / 600 @ 100 mls/hr IVC .Q10H [facility] Rx#: [id number] Intralipid 20% 250 ML @ 21 mls/ 250 / 250 hr IVPB DAILY@1700 [facility] Rx#: [id number] Oral 30 180 / 180 0 / 0 Output: Urine 250 / 250 100 / 100 200 / 200 Other: Meal Breakfast Weight 76.4 kg 69.6 kg Blood Glucose* 120 116 129 Patient Weight 05/04/18 23:59 Weight 69.6 kg - Labs 05/04/18 12:55 05/04/18 03:31 Diabetes panel 05/04/18 Range/Units 03:31 Sodium 131 L (136-145) mEq/L Potassium 3.5 (3.5-5.1) mEq/L Chloride 100 (98-107) mEq/L Carbon Dioxide 24 (23-29) mEq/L BUN 17 (8-23) mg/dL Creatinine 0.46 L (0.70-1.30) mg/dL Glucose 127 H (70-105) mg/dL Calcium 8.0 L (8.6-10.3) mg/dL Calcium panel 05/04/18 Range/Units 03:31 Calcium 8.0 L (8.6-10.3) mg/dL Phosphorus 3.8 (2.7-4.5) mg/dL Pituitary panel 05/04/18 Range/Units 03:31 Sodium 131 L (136-145) mEq/L Potassium 3.5 (3.5-5.1) mEq/L Chloride 100 (98-107) mEq/L Carbon Dioxide 24 (23-29) mEq/L BUN 17 (8-23) mg/dL Creatinine 0.46 L (0.70-1.30) mg/dL Glucose 127 H (70-105) mg/dL Calcium 8.0 L (8.6-10.3) mg/dL Adrenal panel 05/04/18 Range/Units 03:31 Sodium 131 L (136-145) mEq/L Potassium 3.5 (3.5-5.1) mEq/L Chloride 100 (98-107) mEq/L Carbon Dioxide 24 (23-29) mEq/L BUN 17 (8-23) mg/dL Creatinine 0.46 L (0.70-1.30) mg/dL Glucose 127 H (70-105) mg/dL Calcium 8.0 L (8.6-10.3) mg/dL - Attending Attestation I examined this patient and my medical decision-making was reviewed with the Resident Physician. I agree with the documented findings, disposition and treatment plan as described except to the extent set forth below. The patient is seen and evaluated with resident on morning rounds. His abdomen is distended but he reports multiple bowel movements. He has had no nausea or vomiting. He still appears to have a degree of postoperative ileus, however, he is doing well with the nasogastric tube removed. Maintain current diet. Wing GILL FACS
[2018-05-04] MEDS: OXYCODONE Oral CONC 10 MG/0.5 ML ORAL.SYG SL PRN ×2 (08:45→20:37)
[2018-05-04] MEDS ORDERED: Methylnaltrexone 12 MG/0.6 ML SYRINGE SQ ONE (09:02)
[2018-05-04 13:10] LABS: Basophils # 0.1 K/mcL (0.0-0.2); Basophils % 0.4 %; Eosinophils # 0.2 K/mcL (0.0-0.6); Eosinophils % 0.9 %; Hematocrit 29.3 % (37.5-50.1); Hemoglobin 8.8 g/dL (12.9-16.9); Immature Granulocytes % 2.8 % (0-4); Mean Corpuscular Hemoglobin 30.8 pg (28.0-33.3); Mean Platelet Volume 10.5 fL (9.4-12.4); Monocytes # 0.9 K/mcL (0.0-1.3); Monocytes % 5.2 %; Neutrophils # 14.3 K/mcL (1.6-8.9); Platelet Count 226 K/mcL (140-400); Red Blood Count 2.86 M/mcL (4.19-5.50); Red Cell Distribution Width 15.6 % (11.5-14.5); Segmented Neutrophils % 84.7 %
[2018-05-04 13:15] LABS: Mean Corpuscular Volume 102.4 fL (83.0-100.0)
--- NOTE | 2018-05-04 17:15 | Internal Med Progress Note ---
Date of Encounter: 05/04/18 Time of Encounter: 12:45 - Assessment and plan (1) Small bowel obstruction Current Visit: Yes Status: Acute Assessment and plan: Initial CT abdomen/pelvis showed high-grade small bowel obstruction with transition point in the umbilical hernia. Surgery has been consulted, patient underwent Robotic Recurrent Incisional hernia repair mesh on 04/28/18. Continues to have postoperative ileus and abdominal distention- somewhat improving, he has bowel movemens; Continue postop management per surgery- started on sips of water, also on TPN. Continue Reglan, pain control with when necessary oxycodone; Monitor and replete electrolytes as needed. Continue IV antibiotics- ciprofloxacin and Flagyl. Noted to have fluctuating leukocytosis; (2) COPD (chronic obstructive pulmonary disease) Current Visit: Yes Status: Chronic Qualifiers: COPD type: chronic bronchitis Chronic bronchitis type: unspecified Qualified Code(s): J42 - Unspecified chronic bronchitis (3) Umbilical hernia Current Visit: Yes Status: Chronic Qualifiers: Obstruction and gangrene presence: with obstruction but without gangrene Qualified Code(s): K42.0 - Umbilical hernia with obstruction, without gangrene (4) NUNU (acute kidney injury) Current Visit: Yes Status: Resolved (5) SIRS (systemic inflammatory response syndrome) Current Visit: Yes Status: Acute Assessment and plan: - 2 SIRS criteria on admission. Lactic acidosis and episodes of hypotension were present in ED requiring IV fluids - Unsure if this is genuinely infection or a stress reaction. Sepsis ruled out. (6) Essential hypertension Current Visit: Yes Status: Chronic Assessment and plan: Blood pressure noted to be elevated, partly due to pain. Resume oral antihypertensives. Will use when necessary IV hydralazine. - Time Spent With Patient Total time spent is greater than 50% in coordination of care (as documented) at patient's floor/unit and/or counseling patient: - Subjective Interval history: Continues to report abdominal distention and pain. Tolerates sips of water. Continues to have bowel movements. No nausea, vomiting. - Constitutional Vitals: Temp Pulse Resp BP Pulse Ox 98.5 F 106 14 146/73 93 05/04/18 15:00 05/04/18 15:00 05/04/18 15:26 05/04/18 15:00 05/04/18 15:26 General appearance: Present: A&O X 3, answers questions appropriately - Respiratory Respiratory exam: Present: CTAB. Absent: accessory muscle use, rales, rhonchi, wheezes - Cardiovascular Cardiovascular exam: Present: RRR, +S1, +S2. Absent: diastolic murmur, gallop, rubs, systolic murmur - GI/Abdominal GI/Abdominal exam: Present: distended, hypoactive bowel sounds (improving), soft (tenderness in periumbilical area; ), no peritoneal signs. Absent: tenderness Additional comments: tense umbilical hernia swelling + Internal Medicine: Result - Labs CBC & Chem 7: 05/04/18 12:55 05/04/18 03:31 Labs: Short CBC 05/04/18 Range/Units 12:55 WBC 16.9 H (4.3-11.1) K/mcL Hgb 8.8 L (12.9-16.9) g/dL Hct 29.3 L (37.5-50.1) % Plt Count 226 (140-400) K/mcL Neutrophils # 14.3 H (1.6-8.9) K/mcL BMP 05/04/18 03:31 Sodium 131 L Potassium 3.5 Chloride 100 Carbon Dioxide 24 BUN 17 Creatinine 0.46 L Glucose 127 H Calcium 8.0 L - ABG Interpretation ABG results: PT/INR, D-dimer PT 13.2 Seconds (9.4-12.1) H 04/26/18 13:34 - Impressions Impressions Chest/Abdomen X-ray 05/02/18 08:17 IMPRESSION: 1. No acute cardiopulmonary findings. 2. No free air. 3. Enteric tube is looped within the gastric fundus. 4. Persistent air-filled dilated loops of small bowel, which may reflect ileus given recent surgery. D/ / 05/02/2018 10:14:32 Shellie Cross MD / [facility] Interpreting Provider: Shellie Cross MD - VTE Documentation of Mechanical Device: Intermittent pneumatic compression device Consult Discharge Plan - Plan Referrals: Virgilio Sanchez MD [Primary Care Provider] - 05/08/18 10:45 am Breanna Ocampo CNP [Advanced Practice Nurse] - 05/15/18 1:30 pm
[2018-05-04] MEDS: Clinimix E 5%-15% SOLUTION 2,000 ML with MVI, adult with vitamin K 10 ML IVC SCH (17:40)
[2018-05-04] MEDS: Loratadine 10 MG TABLET PO SCH (17:41)
[2018-05-04] MEDS: Metoprolol XL (24 HR) Succ 25 MG TAB.ER.24H PO SCH (17:41)
[2018-05-04] MEDS: Bisacodyl 10 MG RECTAL SUPPOSITORY RC SCH (20:33)
[2018-05-04] MEDS: 0.9 % Sodium Chloride 1,000 ML IVC SCH ×2 (20:34→20:35)
[2018-05-05] MEDS: Metoclopramide 10 MG/2 ML VIAL IVP SCH ×4 (00:15→17:30)
[2018-05-05] MEDS: Ipratropium/Albuterol Neb 3 ML IH SCH ×6 (00:21→21:06)
[2018-05-05 05:20] LABS: BUN/Creatinine Ratio 43 (6-26); Blood Urea Nitrogen 17 mg/dL (8-23); Carbon Dioxide 22 mEq/L (23-29); Chloride 100 mEq/L (98-107); Glucose 107 mg/dL (70-105); Magnesium 1.6 mg/dL (1.6-2.6); Osmolality,Calculated 270 (280-300); Phosphorous 3.1 mg/dL (2.7-4.5); Potassium 3.7 mEq/L (3.5-5.1); Sodium 129 mEq/L (136-145); eGFR For Non-African Americans > 60 (> 60)
[2018-05-05] MEDS: *HR* Heparin 5,000 UNIT/ML VIAL SQ SCH ×2 (05:51→17:30)
[2018-05-05 06:29] LABS: Basophils # 0.1 K/mcL (0.0-0.2); Basophils % 0.4 %; Eosinophils # 0.2 K/mcL (0.0-0.6); Eosinophils % 0.8 %; Hematocrit 28.7 % (37.5-50.1); Hemoglobin 9.8 g/dL (12.9-16.9); Immature Granulocytes % 4.5 % (0-4); Lymphocytes # 1.5 K/mcL (0.6-4.6); Lymphocytes % 6.7 %; Mean Corpuscular HGB Conc 34.1 g/dL (31.6-35.5); Mean Corpuscular Hemoglobin 30.3 pg (28.0-33.3); Mean Corpuscular Volume 88.9 fL (83.0-100.0); Mean Platelet Volume 10.2 fL (9.4-12.4); Monocytes # 1.8 K/mcL (0.0-1.3); Neutrophils # 17.7 K/mcL (1.6-8.9); Platelet Count 259 K/mcL (140-400); Red Blood Count 3.23 M/mcL (4.19-5.50); Red Cell Distribution Width 14.9 % (11.5-14.5); Segmented Neutrophils % 79.6 %
[2018-05-05] MEDS ORDERED: Isovue-370 500 ML INFUS..BTL IV ONE ×2 (06:56→07:09)
[2018-05-05] MEDS ORDERED: Ondansetron 4 MG/2 ML VIAL IVP STA (07:11)
[2018-05-05] MEDS ORDERED: Acetaminophen IV 1,000 MG/100 ML INFUS..BTL IVPB STA (07:11)
--- NOTE | 2018-05-05 10:12 | General Surgery Progress Note ---
<Kingsley Moody - Last Filed: 05/05/18 11:54> Date of Encounter: 05/05/18 Time of Encounter: 10:10 - Assessment and Plan (1) Umbilical hernia Current Visit: Yes Status: Chronic Continues to have Abdominal Distension - Bowel function appears to be returning slowly. Patient has had a bowel movment and has high pitched bowel sounds ( indicating dilated small bowel). Will continue reglan to help increase bowel function, possibly add methylnatrexone again. Ordered abdominal series to assess bowel ileus. - Continue reglan therapy - Continue Simethicone for distension - Continue sips of clears < 300 mL every 8 hours - Continue TPN Continue ABX, pain control, IVF per primary team's recommendations. Encourage ambulation and inspirative spirometry Serial abdominal exams Surgery will continue following the patient Qualifiers: Obstruction and gangrene presence: with obstruction but without gangrene Qualified Code(s): K42.0 - Umbilical hernia with obstruction, without gangrene Subjective Patient reports: no new complaints, pain is less, tolerating liquids well, flatus Narrative: Patient reports feeling better from yesterday. Has decreased abdominal distension. Denies N/V, increased abdominal distension,tolerating sips of clears, no bowel movement, passing minimal gas. Abdominal series with contrast ordered today. Objective Vital Signs - Last 8 Hours Temp Pulse Resp BP Pulse Ox 05/05/18 07:45 18 95 05/05/18 07:35 99.8 F H 111 16 138/67 94 05/05/18 07:11 101.2 F H 05/05/18 04:16 18 92 05/05/18 04:06 99.2 F 121 18 149/68 92 Intake and Output 05/04/18 05/05/18 05/05/18 23:59 07:59 15:59 Intake Total 0 / 0 370 / 370 Output Total 375 / 375 550 / 550 Balance -375 / -375 -180 / -180 Intake: IV Fluids 250 / 250 Intralipid 20% 250 ML @ 21 mls/ 250 / 250 hr IVPB DAILY@1700 [facility] Rx#: [id number] Oral 0 / 0 120 / 120 Output: Urine 375 / 375 550 / 550 Other: # Voids 2 Weight 70.2 kg Blood Glucose* 129 137 Patient Weight 05/05/18 23:59 Weight 70.2 kg - General physical appearance well developed, no distress - Respiratory normal expansion, normal respiratory effort - Cardiovascular Cardiovascular exam: Present: RRR, no murmurs/rubs/gallops - Abdomen Abdomen: Present: bowel sounds present, distended. Absent: guarding, rebound, rigid Abdominal Tenderness: epigastic (mild pain at site of redness) - Neurologic CN 2-12 grossly intact - Psychiatric oriented to time, oriented to person, oriented to place, speech is normal, memory intact - Labs 05/05/18 06:00 05/05/18 04:37 Diabetes panel 05/05/18 Range/Units 04:37 Sodium 129 L (136-145) mEq/L Potassium 3.7 (3.5-5.1) mEq/L Chloride 100 (98-107) mEq/L Carbon Dioxide 22 L (23-29) mEq/L BUN 17 (8-23) mg/dL Creatinine 0.40 L (0.70-1.30) mg/dL Glucose 107 H (70-105) mg/dL Calcium 8.0 L (8.6-10.3) mg/dL Calcium panel 05/05/18 Range/Units 04:37 Calcium 8.0 L (8.6-10.3) mg/dL Phosphorus 3.1 (2.7-4.5) mg/dL Pituitary panel 05/05/18 Range/Units 04:37 Sodium 129 L (136-145) mEq/L Potassium 3.7 (3.5-5.1) mEq/L Chloride 100 (98-107) mEq/L Carbon Dioxide 22 L (23-29) mEq/L BUN 17 (8-23) mg/dL Creatinine 0.40 L (0.70-1.30) mg/dL Glucose 107 H (70-105) mg/dL Calcium 8.0 L (8.6-10.3) mg/dL Adrenal panel 05/05/18 Range/Units 04:37 Sodium 129 L (136-145) mEq/L Potassium 3.7 (3.5-5.1) mEq/L Chloride 100 (98-107) mEq/L Carbon Dioxide 22 L (23-29) mEq/L BUN 17 (8-23) mg/dL Creatinine 0.40 L (0.70-1.30) mg/dL Glucose 107 H (70-105) mg/dL Calcium 8.0 L (8.6-10.3) mg/dL - VTE Documentation of Mechanical Device: Intermittent pneumatic compression device Consult Discharge Plan - Plan Referrals: Virgilio Sanchez MD [Primary Care Provider] - 05/08/18 10:45 am Breanna Ocampo CNP [Advanced Practice Nurse] - 05/15/18 1:30 pm <Sandeep Maharaj - Last Filed: 05/05/18 15:44> Date of Encounter: 05/05/18 Objective Vital Signs - Last 8 Hours Temp Pulse Resp BP Pulse Ox 05/05/18 11:20 16 96 05/05/18 11:06 97.9 F 59 16 139/56 94 05/05/18 07:45 18 95 Intake and Output 05/04/18 05/05/18 05/05/18 23:59 07:59 15:59 Intake Total 0 / 0 370 / 370 100 / 100 Output Total 375 / 375 550 / 550 650 / 650 Balance -375 / -375 -180 / -180 -550 / -550 Intake: IV Fluids 250 / 250 100 / 100 Ofirmev 1,000 mg/100 ml 1,000 100 / 100 mg In 100 ml @ 400 mls/hr IVPB [facility]CE [facility] Rx#:[id number] Intralipid 20% 250 ML @ 21 mls/ 250 / 250 hr IVPB DAILY@1700 [facility] Rx#: [id number] Oral 0 / 0 120 / 120 0 / 0 Output: Urine 375 / 375 550 / 550 650 / 650 Other: Meal NPO # Voids 2 Weight 70.2 kg Blood Glucose* 129 137 123 Patient Weight 05/05/18 23:59 Weight 70.2 kg - Labs 05/05/18 06:00 05/05/18 04:37 Diabetes panel 05/05/18 Range/Units 04:37 Sodium 129 L (136-145) mEq/L Potassium 3.7 (3.5-5.1) mEq/L Chloride 100 (98-107) mEq/L Carbon Dioxide 22 L (23-29) mEq/L BUN 17 (8-23) mg/dL Creatinine 0.40 L (0.70-1.30) mg/dL Glucose 107 H (70-105) mg/dL Calcium 8.0 L (8.6-10.3) mg/dL Calcium panel 05/05/18 Range/Units 04:37 Calcium 8.0 L (8.6-10.3) mg/dL Phosphorus 3.1 (2.7-4.5) mg/dL Pituitary panel 05/05/18 Range/Units 04:37 Sodium 129 L (136-145) mEq/L Potassium 3.7 (3.5-5.1) mEq/L Chloride 100 (98-107) mEq/L Carbon Dioxide 22 L (23-29) mEq/L BUN 17 (8-23) mg/dL Creatinine 0.40 L (0.70-1.30) mg/dL Glucose 107 H (70-105) mg/dL Calcium 8.0 L (8.6-10.3) mg/dL Adrenal panel 05/05/18 Range/Units 04:37 Sodium 129 L (136-145) mEq/L Potassium 3.7 (3.5-5.1) mEq/L Chloride 100 (98-107) mEq/L Carbon Dioxide 22 L (23-29) mEq/L BUN 17 (8-23) mg/dL Creatinine 0.40 L (0.70-1.30) mg/dL Glucose 107 H (70-105) mg/dL Calcium 8.0 L (8.6-10.3) mg/dL - Attending Attestation I have personally seen and examined the patient. I have reviewed pertinent labs , imaging, progress notes, including this one. I agree with the above assessment and plan and wish to include the following... POD#7 s/p laura recurrent ventral hernia repair; distended abdomen, but patient does report bowel function; CT scan obtained which demonstrates expected post op changes, but also concern for SBO with TP in pelvis; clinically the patient is behaving more consistently with an ileus; keep NPO at present; if vomits or there is not resolution of distension, recommend NG tube; replete lytes, encouraged ambulation and IS usage
[2018-05-05] MEDS ORDERED: 0.9 % Sodium Chloride 250 ML ONE (10:44)
[2018-05-05] MEDS ORDERED: Fluconazole 200 MG/100 ML 200 MG/100 ML BAG IVPB SCH (12:00)
[2018-05-05] MEDS: Loratadine 10 MG TABLET PO SCH (12:42)
[2018-05-05] MEDS: Metoprolol XL (24 HR) Succ 25 MG TAB.ER.24H PO SCH (12:42)
[2018-05-05] MEDS: Levofloxacin 750 MG/150 ML 750 MG/150 ML BAG IVPB SCH (15:06)
[2018-05-05] MEDS: OXYCODONE Oral CONC 10 MG/0.5 ML ORAL.SYG SL PRN (17:16)
[2018-05-05] MEDS: MetroNIDAZOLE 500 MG/100 ML 500 MG/100 ML BAG IVPB SCH (17:16)
[2018-05-05] MEDS: Clinimix E 5%-15% SOLUTION 2,000 ML with MVI, adult with vitamin K 10 ML, Magnesium S... IVC SCH (17:17)
--- NOTE | 2018-05-05 17:45 | Internal Med Progress Note ---
Date of Encounter: 05/05/18 Time of Encounter: 12:30 - Assessment and plan (1) Pneumonia Current Visit: Yes Status: Suspected Assessment and plan: suspected per CT chest and worsening leukocytosis, fever spike; continue IV antibiotics as below; supportive care and supplemental O2; Qualifiers: Pneumonia type: due to unspecified organism Laterality: right Lung location: lower lobe of lung Qualified Code(s): J18.1 - Lobar pneumonia, unspecified organism (2) Small bowel obstruction Current Visit: Yes Status: Acute Assessment and plan: Initial CT abdomen/pelvis showed high-grade small bowel obstruction with transition point in the umbilical hernia. Surgery has been consulted, patient underwent Robotic Recurrent Incisional hernia repair mesh on 04/28/18. Continues to have abdominal distention; he has bowel movements; Continue postop management per surgery- started on sips of water, continue TPN. Continue Reglan , pain control with when necessary oxycodone; Monitor and replete electrolytes as needed. Completed 10 days of IV antibiotics - ciprofloxacin and Flagyl. Continues to have worsening leukocytosis today; CT chest/abdomen/pelvis ordered per Surgery- bibasal atelectasis, 1.2*1cm spiculated nodule in RUL; possible SBO, ventral hernia strangulation; d/w surgery- no abdominal infection; will start IV Levaquin for possible RLL PNA , and continue IV Flagyl and Fluconazole per Surgery; (3) COPD (chronic obstructive pulmonary disease) Current Visit: Yes Status: Chronic Assessment and plan: Not in acute exacerbation. Continue when necessary bronchodilators, supplemental oxygen. Qualifiers: COPD type: chronic bronchitis Chronic bronchitis type: unspecified Qualified Code(s): J42 - Unspecified chronic bronchitis (4) Umbilical hernia Current Visit: Yes Status: Chronic Qualifiers: Obstruction and gangrene presence: with obstruction but without gangrene Qualified Code(s): K42.0 - Umbilical hernia with obstruction, without gangrene (5) NUNU (acute kidney injury) Current Visit: Yes Status: Resolved (6) SIRS (systemic inflammatory response syndrome) Current Visit: Yes Status: Acute (7) Essential hypertension Current Visit: Yes Status: Chronic - Time Spent With Patient Total time spent is greater than 50% in coordination of care (as documented) at patient's floor/unit and/or counseling patient: - Subjective Interval history: Feels well; improving abdominal pain; persistent distension, no bowel movements today so far, but has flatus; no chest pain or shortness of breath; had a fever spike last night; - Constitutional Vitals: Temp Pulse Resp BP Pulse Ox 98.9 F 112 20 130/57 95 05/05/18 15:42 05/05/18 15:42 05/05/18 16:15 05/05/18 15:42 05/05/18 16:15 General appearance: Present: A&O X 3, answers questions appropriately - Respiratory Respiratory exam: Present: CTAB. Absent: accessory muscle use, rales, rhonchi, wheezes - Cardiovascular Cardiovascular exam: Present: RRR, +S1, +S2. Absent: diastolic murmur, gallop, rubs, systolic murmur - GI/Abdominal GI/Abdominal exam: Present: diminished bowel sounds (improving), distended, normal bowel sounds, soft (tenderness in periumbilical area; continues to have tense umbilical swelling), no peritoneal signs. Absent: tenderness - Extremities Exam Extremities exam: Present: full ROM, warm, radial pulses palpable and symmetrical. Absent: calf tenderness, cyanotic, pedal edema Internal Medicine: Result - Labs CBC & Chem 7: 05/06/18 09:12 05/06/18 03:10 Labs: Short CBC 05/05/18 Range/Units 06:00 WBC 22.3 H (4.3-11.1) K/mcL Hgb 9.8 L (12.9-16.9) g/dL Hct 28.7 L (37.5-50.1) % Plt Count 259 (140-400) K/mcL Neutrophils # 17.7 H (1.6-8.9) K/mcL BMP 05/05/18 04:37 Sodium 129 L Potassium 3.7 Chloride 100 Carbon Dioxide 22 L BUN 17 Creatinine 0.40 L Glucose 107 H Calcium 8.0 L - ABG Interpretation ABG results: PT/INR, D-dimer PT 13.2 Seconds (9.4-12.1) H 04/26/18 13:34 - Impressions Impressions Abdomen/Pelvis CT 05/05/18 09:45 IMPRESSION: 1. Dilation primarily of small bowel loops with transition in the pelvis suggestive of small bowel obstruction. 2. Ventral hernia with fluid and a small amount of air with a suggestion of inflammation. There could be strangulation in the hernia sac. 3. Urinary bladder demonstrates two focal areas of wall thickening which may represent polyp versus neoplasm. 4. Small bilateral pleural effusions and lower lobe atelectatic changes more significant compared with the previous evaluation. 5. Chronic T11 compression injury. D/ / 05/05/2018 11:53:18 Helga Betts MD / lgray Interpreting Provider: Helga Betts MD Chest CT 05/05/18 09:45 IMPRESSION: 1. Consolidative changes and atelectatic changes mostly in the right lower lobe consistent with pneumonia. 2. Atelectatic changes both lower lobes. 3. Spiculated nodule in the right upper lobe measuring 1.2 x 1 cm highly suspicious for malignancy. 4. Small bilateral pleural effusions. 5. Re-demonstration of a 1.4 cm left adrenal nodule. Metastatic disease cannot be excluded. RECOMMENDATIONS: Fleischner Society guidelines for follow-up and management of incidentally detected pulmonary nodules: Single Solid Nodule: Nodule size less than 6 mm In a low-risk patient, no routine follow-up. In a high-risk patient, optional CT at 12 months. Nodule size equals 6-8 mm In a low-risk patient, CT at 6-12 months, then consider CT at 18-24 months. In a high-risk patient, CT at 6-12 months, then CT at 18-24 months. Nodule size greater than 8 mm In a low-risk patient, consider CT at 3 months, PET/CT, or tissue sampling. In a high-risk patient, consider CT at 3 months, PET/CT, or tissue sampling. Multiple Solid Nodules: Nodule size less than 6 mm In a low-risk patient, no routine follow-up. In a high-risk patient, optional CT at 12 months. Nodule size equals 6-8 mm In a low-risk patient, CT at 3-6 months, then consider CT at 18-24 months. In a high-risk patient, CT at 3-6 months, then CT at 18-24 months. Nodule size greater than 8 mm In a low-risk patient, CT at 3-6 months, then consider CT at 18-24 months. In a high-risk patient, CT at 3-6 months, then CT at 18-24 months. - Low risk patients include individuals with minimal or absent history of smoking and other known risk factors. - High risk patients include individuals with a history or smoking or known risk factors. Radiology 2017 http://pubs.[facility]na.org/doi/full/10.1148/radiol.[email or web address] D/ / 05/05/2018 12:01:26 Helga Betts MD / Brandie Hardwick Interpreting Provider: Helga Betts MD - VTE Documentation of Mechanical Device: Intermittent pneumatic compression device Consult Discharge Plan - Plan Referrals: Virgilio Sanchez MD [Primary Care Provider] - 05/08/18 10:45 am Breanna Ocampo CNP [Advanced Practice Nurse] - 05/15/18 1:30 pm
[2018-05-05] MEDS: Clinimix E 5%-15% SOLUTION 2,000 ML with MVI, adult with vitamin K 10 ML IVC SCH ×2 (18:00→20:36)
[2018-05-05] MEDS: Bisacodyl 10 MG RECTAL SUPPOSITORY RC SCH (20:10)
[2018-05-06] MEDS: Metoclopramide 10 MG/2 ML VIAL IVP SCH ×4 (00:06→16:56)
[2018-05-06] MEDS: MetroNIDAZOLE 500 MG/100 ML 500 MG/100 ML BAG IVPB SCH ×3 (00:07→16:54)
[2018-05-06] MEDS: Ipratropium/Albuterol Neb 3 ML IH SCH ×7 (00:28→23:19)
[2018-05-06] MEDS ORDERED: Acetaminophen 325 MG TABLET PO STA (01:34)
[2018-05-06] MEDS: 0.9 % Sodium Chloride 1,000 ML IVC SCH ×3 (02:52→21:37)
[2018-05-06 03:45] LABS: BUN/Creatinine Ratio 36 (6-26); Blood Urea Nitrogen 15 mg/dL (8-23); Carbon Dioxide 24 mEq/L (23-29); Chloride 100 mEq/L (98-107); Glucose 116 mg/dL (70-105); Magnesium 1.7 mg/dL (1.6-2.6); Osmolality,Calculated 274 (280-300); Phosphorous 3.4 mg/dL (2.7-4.5); Potassium 3.9 mEq/L (3.5-5.1); Sodium 131 mEq/L (136-145); eGFR For Non-African Americans > 60 (> 60)
[2018-05-06] MEDS: *HR* Heparin 5,000 UNIT/ML VIAL SQ SCH ×2 (06:02→16:56)
[2018-05-06] MEDS: Metoprolol XL (24 HR) Succ 25 MG TAB.ER.24H PO SCH (08:05)
[2018-05-06] MEDS: Loratadine 10 MG TABLET PO SCH (08:05)
[2018-05-06] MEDS: Levofloxacin 750 MG/150 ML 750 MG/150 ML BAG IVPB SCH (08:06)
[2018-05-06] MEDS: OXYCODONE Oral CONC 10 MG/0.5 ML ORAL.SYG SL PRN (08:11)
[2018-05-06] MEDS ORDERED: Fluconazole 100 MG/50 ML 100 MG/50 ML BAG IVPB SCH (09:00)
[2018-05-06 09:30] LABS: Basophils # 0.1 K/mcL (0.0-0.2); Basophils % 0.3 %; Eosinophils # 0.2 K/mcL (0.0-0.6); Eosinophils % 1.5 %; Hematocrit 27.3 % (37.5-50.1); Hemoglobin 9.1 g/dL (12.9-16.9); Lymphocytes # 1.1 K/mcL (0.6-4.6); Lymphocytes % 6.5 %; Mean Corpuscular HGB Conc 33.3 g/dL (31.6-35.5); Mean Corpuscular Hemoglobin 29.9 pg (28.0-33.3); Mean Corpuscular Volume 89.8 fL (83.0-100.0); Mean Platelet Volume 10.1 fL (9.4-12.4); Monocytes # 1.5 K/mcL (0.0-1.3); Monocytes % 9.3 %; Neutrophils # 12.9 K/mcL (1.6-8.9); Platelet Count 250 K/mcL (140-400); Red Blood Count 3.04 M/mcL (4.19-5.50); Segmented Neutrophils % 78.4 %
--- NOTE | 2018-05-06 13:31 | General Surgery Progress Note ---
<MelanyAmilcarAlex W - Last Filed: 05/06/18 13:28> Date of Encounter: 05/06/18 Time of Encounter: 13:28 - Assessment and Plan (1) Umbilical hernia Current Visit: Yes Status: Chronic -POD#7 s/p laura recurrent ventral hernia repair -CT scan showed possible SBO with transition point in pelvis however clinically the findings are more consistent with ileus -continue to monitor for n/v or increased distension. Consider NG tube if distension is not resolving or the patient is vomiting -NPO with ice chips 1 cup every 8 hours. -encourage ambulation and IS -continue reglan and simethicone -surgery will continue to follow -Continue ABX and pain control per primary Qualifiers: Obstruction and gangrene presence: with obstruction but without gangrene Qualified Code(s): K42.0 - Umbilical hernia with obstruction, without gangrene Subjective Patient reports: no new complaints, feels better, still having pain, flatus, bowel movement, afebrile Narrative: Patient states he is doing better today. He had a bowel movement last evening after an enema. He states he had another bowel movement this am. Denies n/v. denies fever, chills, or night sweats. denies SOB or chest pain. WBC count 16.4 down from 22.2 yesterday. Objective Vital Signs - Last 8 Hours Temp Pulse Resp BP Pulse Ox 05/06/18 10:53 99.1 F 117 24 146/69 90 05/06/18 06:32 98.9 F 104 16 144/81 93 Intake and Output 05/05/18 05/06/18 05/06/18 23:59 07:59 15:59 Intake Total 2260 / 2260 100 / 100 1000 / 1000 Output Total 350 / 350 1075 / 1075 600 / 600 Balance 1910 / 1910 -975 / -975 400 / 400 Intake: IV Fluids 2260 / 2260 100 / 100 1000 / 1000 0.9 % Sodium Chloride 1,000 ML 1000 / 1000 @ 100 mls/hr IVC .Q10H [facility] Rx#: [id number] Clinimix E 5%-15% SOLUTION 2009 000 ML @ 83.3 mls/hr IVC .Q24H [facility] with M.v.i. Adult 10 ml Rx# :[id number] Levaquin Premix 750mg/150 mL 150 / 150 750 mg In 150 ml @ 100 mls/hr IVPB DAILY [facility] Rx#:[id number] Flagyl Premix 500 MG/100 ML 500 100 / 100 100 / 100 mg In 100 ml @ 100 mls/hr IVPB Q8HR [facility] Rx#:[id number] Oral 0 / 0 0 / 0 0 / 0 Output: Urine 350 / 350 1075 / 1075 600 / 600 Other: Meal NPO Percent of Meal Consumed 0% Stool Size Small Stool Consistency loose soft formed Stool Color Brown # Bowel Movements 1 Weight 70.2 kg Blood Glucose* 121 124 115 Patient Weight 05/06/18 23:59 Weight 70.2 kg - General physical appearance well developed, well nourished, no distress - Eyes normal ocular movement - ENT atraumatic, normocephalic, CN 2-12 grossly intact - Neck Neck exam: no masses - Respiratory normal expansion, normal respiratory effort, clear to auscultation - Cardiovascular Cardiovascular exam: Present: RRR, no murmurs/rubs/gallops - Abdomen Abdomen: Present: bowel sounds present, distended, tender Abdominal Tenderness: diffusely Hernia: umbilical - Integumentary other (erythema around umbilicus has not increased in size) - Neurologic CN 2-12 grossly intact, normal coordination, normal sensation - Musculoskeletal normal posture - Psychiatric speech is normal, memory intact - Labs 05/06/18 09:12 05/06/18 03:10 Diabetes panel 05/06/18 Range/Units 03:10 Sodium 131 L (136-145) mEq/L Potassium 3.9 (3.5-5.1) mEq/L Chloride 100 (98-107) mEq/L Carbon Dioxide 24 (23-29) mEq/L BUN 15 (8-23) mg/dL Creatinine 0.42 L (0.70-1.30) mg/dL Glucose 116 H (70-105) mg/dL Calcium 8.0 L (8.6-10.3) mg/dL Calcium panel 05/06/18 Range/Units 03:10 Calcium 8.0 L (8.6-10.3) mg/dL Phosphorus 3.4 (2.7-4.5) mg/dL Pituitary panel 05/06/18 Range/Units 03:10 Sodium 131 L (136-145) mEq/L Potassium 3.9 (3.5-5.1) mEq/L Chloride 100 (98-107) mEq/L Carbon Dioxide 24 (23-29) mEq/L BUN 15 (8-23) mg/dL Creatinine 0.42 L (0.70-1.30) mg/dL Glucose 116 H (70-105) mg/dL Calcium 8.0 L (8.6-10.3) mg/dL Adrenal panel 05/06/18 Range/Units 03:10 Sodium 131 L (136-145) mEq/L Potassium 3.9 (3.5-5.1) mEq/L Chloride 100 (98-107) mEq/L Carbon Dioxide 24 (23-29) mEq/L BUN 15 (8-23) mg/dL Creatinine 0.42 L (0.70-1.30) mg/dL Glucose 116 H (70-105) mg/dL Calcium 8.0 L (8.6-10.3) mg/dL - VTE Documentation of Mechanical Device: Intermittent pneumatic compression device Consult Discharge Plan - Plan Referrals: Virgilio Sanchez MD [Primary Care Provider] - 05/08/18 10:45 am Breanna Ocampo CNP [Advanced Practice Nurse] - 05/15/18 1:30 pm <Dann Collins - Last Filed: 05/08/18 06:42> Date of Encounter: 05/06/18 Objective Vital Signs - Last 8 Hours Temp Pulse Resp BP Pulse Ox 05/06/18 15:42 99.1 F 120 20 132/64 93 05/06/18 14:44 20 90 05/06/18 10:53 99.1 F 117 24 146/69 90 Intake and Output 05/05/18 05/06/18 05/06/18 23:59 07:59 15:59 Intake Total 2260 / 2260 100 / 100 1120 / 1120 Output Total 350 / 350 1075 / 1075 1040 / 1040 Balance 1909 / 1909 -975 / -975 80 / 80 Intake: IV Fluids 2260 / 2260 100 / 100 1000 / 1000 0.9 % Sodium Chloride 1,000 ML 1000 / 1000 @ 100 mls/hr IVC .Q10H [facility] Rx#: [id number] Clinimix E 5%-15% SOLUTION 2009 000 ML @ 83.3 mls/hr IVC .Q24H [facility] with M.v.i. Adult 10 ml Rx# :[id number] Levaquin Premix 750mg/150 mL 150 / 150 750 mg In 150 ml @ 100 mls/hr IVPB DAILY [facility] Rx#:[id number] Flagyl Premix 500 MG/100 ML 500 100 / 100 100 / 100 mg In 100 ml @ 100 mls/hr IVPB Q8HR [facility] Rx#:[id number] Oral 0 / 0 0 / 0 120 / 120 Output: Urine 350 / 350 1075 / 1075 1040 / 1040 Other: Meal Lunch Percent of Meal Consumed 100% Stool Size Small Stool Consistency loose soft formed Stool Color Brown # Voids 2 # Bowel Movements 1 Weight 70.2 kg Blood Glucose* 121 124 115 Patient Weight 05/06/18 23:59 Weight 70.2 kg - Labs 05/07/18 04:45 05/08/18 05:20 Diabetes panel 05/06/18 Range/Units 03:10 Sodium 131 L (136-145) mEq/L Potassium 3.9 (3.5-5.1) mEq/L Chloride 100 (98-107) mEq/L Carbon Dioxide 24 (23-29) mEq/L BUN 15 (8-23) mg/dL Creatinine 0.42 L (0.70-1.30) mg/dL Glucose 116 H (70-105) mg/dL Calcium 8.0 L (8.6-10.3) mg/dL Calcium panel 05/06/18 Range/Units 03:10 Calcium 8.0 L (8.6-10.3) mg/dL Phosphorus 3.4 (2.7-4.5) mg/dL Pituitary panel 05/06/18 Range/Units 03:10 Sodium 131 L (136-145) mEq/L Potassium 3.9 (3.5-5.1) mEq/L Chloride 100 (98-107) mEq/L Carbon Dioxide 24 (23-29) mEq/L BUN 15 (8-23) mg/dL Creatinine 0.42 L (0.70-1.30) mg/dL Glucose 116 H (70-105) mg/dL Calcium 8.0 L (8.6-10.3) mg/dL Adrenal panel 05/06/18 Range/Units 03:10 Sodium 131 L (136-145) mEq/L Potassium 3.9 (3.5-5.1) mEq/L Chloride 100 (98-107) mEq/L Carbon Dioxide 24 (23-29) mEq/L BUN 15 (8-23) mg/dL Creatinine 0.42 L (0.70-1.30) mg/dL Glucose 116 H (70-105) mg/dL Calcium 8.0 L (8.6-10.3) mg/dL - Attending Attestation I examined this patient and my medical decision-making was reviewed with the Resident Physician. I agree with the documented findings, disposition and treatment plan as described except to the extent set forth below. I reviewed the above assessment and evaluation and agree with the above- mentioned plan. Patient's abdomen is distended with some scant bowel sounds present. Erythema around the umbilicus still present. Noted decrease in white count to 16.8, on antibiotics. Will allow ice chips but continue to await return of bowel function.
--- NOTE | 2018-05-06 16:21 | Internal Med Progress Note ---
Date of Encounter: 05/06/18 Time of Encounter: 11:15 - Assessment and plan (1) Pneumonia Current Visit: Yes Status: Suspected Assessment and plan: suspected per CT chest and leukocytosis, fever spike; improving WBC count, had low grade fever last night; suspect fever is from atelectasis; encouraged patient to comply with IS at least 6times/hour; continue IV antibiotics as below ; supportive care and supplemental O2; Qualifiers: Pneumonia type: due to unspecified organism Laterality: right Lung location: lower lobe of lung Qualified Code(s): J18.1 - Lobar pneumonia, unspecified organism (2) Small bowel obstruction Current Visit: Yes Status: Acute Assessment and plan: Initial CT abdomen/pelvis showed high-grade small bowel obstruction with transition point in the umbilical hernia. Surgery has been consulted, patient underwent Robotic Recurrent Incisional hernia repair mesh on 04/28/18. Continues to have abdominal distention; he has bowel movements; Continue postop management per surgery- only on ice chips, continue TPN. Continue Reglan, Simethicone, pain control with when necessary oxycodone; to consider NG tube for nausea, vomiting, worsening abdominal distension; Completed 10 days of IV antibiotics- ciprofloxacin and Flagyl. d/w surgery- no abdominal infection; on IV Levaquin for possible RLL PNA, and continue IV Flagyl and Fluconazole per Surgery; (3) COPD (chronic obstructive pulmonary disease) Current Visit: Yes Status: Chronic Assessment and plan: Not in acute exacerbation. Continue when necessary bronchodilators, supplemental oxygen. Qualifiers: COPD type: chronic bronchitis Chronic bronchitis type: unspecified Qualified Code(s): J42 - Unspecified chronic bronchitis (4) Umbilical hernia Current Visit: Yes Status: Chronic Qualifiers: Obstruction and gangrene presence: with obstruction but without gangrene Qualified Code(s): K42.0 - Umbilical hernia with obstruction, without gangrene (5) NUNU (acute kidney injury) Current Visit: Yes Status: Resolved (6) SIRS (systemic inflammatory response syndrome) Current Visit: Yes Status: Resolved (7) Essential hypertension Current Visit: Yes Status: Chronic (8) Lung nodule seen on imaging study Current Visit: Yes Status: Chronic Assessment and plan: CT chest revealed an incidental finding of 1.2 x 1 cm spiculated nodule in the right upper lobe, suspicious for malignancy. Also shows 1.4 cm left adrenal nodule. Patient seems to be a current smoker. Consulted oncology, with follow- up recommendations. - Time Spent With Patient Total time spent is greater than 50% in coordination of care (as documented) at patient's floor/unit and/or counseling patient: - Subjective Interval history: Reports dry cough. Had a bowel movement this morning. Persistent abdominal distention but improving pain. Lying in bed constantly, not compliant with incentive spirometry use. - Constitutional Vitals: Temp Pulse Resp BP Pulse Ox 99.1 F 120 20 132/64 93 05/06/18 15:42 05/06/18 15:42 05/06/18 15:42 05/06/18 15:42 05/06/18 15:42 General appearance: Present: A&O X 3, answers questions appropriately - Respiratory Respiratory exam: Present: decreased breath sounds (at right base), CTAB. Absent: accessory muscle use, rales, rhonchi, wheezes - Cardiovascular Cardiovascular exam: Present: RRR, +S1, +S2, tachycardia. Absent: diastolic murmur, gallop, rubs, systolic murmur - GI/Abdominal GI/Abdominal exam: Present: diminished bowel sounds, distended, soft (improving umbilical tenderness; persistent umbilical hernia, tense ), no peritoneal signs. Absent: tenderness - Extremities Exam Extremities exam: Present: full ROM, pedal edema (trace), warm, radial pulses palpable and symmetrical. Absent: calf tenderness, cyanotic - Neurological Exam Neurological exam: Present: CN II-XII intact, oriented X3, no focal deficits. Absent: pronater drift, facial droop, speech deficit Internal Medicine: Result - Labs CBC & Chem 7: 05/06/18 09:12 05/06/18 03:10 Labs: Short CBC 05/06/18 Range/Units 09:12 WBC 16.4 H (4.3-11.1) K/mcL Hgb 9.1 L (12.9-16.9) g/dL Hct 27.3 L (37.5-50.1) % Plt Count 250 (140-400) K/mcL Neutrophils # 12.9 H (1.6-8.9) K/mcL BMP 05/06/18 03:10 Sodium 131 L Potassium 3.9 Chloride 100 Carbon Dioxide 24 BUN 15 Creatinine 0.42 L Glucose 116 H Calcium 8.0 L - ABG Interpretation ABG results: PT/INR, D-dimer PT 13.2 Seconds (9.4-12.1) H 04/26/18 13:34 - VTE Documentation of Mechanical Device: Intermittent pneumatic compression device Consult Discharge Plan - Plan Referrals: Virgilio Sanchez MD [Primary Care Provider] - 05/08/18 10:45 am Breanna Ocampo CNP [Advanced Practice Nurse] - 05/15/18 1:30 pm
[2018-05-06] MEDS ORDERED: Clinimix E 5%-15% SOLUTION 2,000 ML with MVI, adult with vitamin K 10 ML, Magnesium S... IVC SCH (17:00)
[2018-05-06] MEDS ORDERED: Clinimix E 5%-15% SOLUTION 2,000 ML, Parenteral Amino Acid 10% 0 ML with MVI, adult wi... IVC SCH (17:00)
--- NOTE | 2018-05-06 17:08 | Oncology Inp Consult Note ---
Date of Encounter: 05/06/18 Time of Encounter: 15:00 Assessment and Plan (1) Lung nodule Status: Acute Assessment and plan: Spiculated right lung nodule, borderline hilar lymphadenopathy, right lung nodule suspicious for malignancy rather than infection. Patient has a history of chronic smoking quit 9 months ago. We will proceed with workup as an outpatient findings discussed with patient, possible differential reviewed. Left adrenal nodule benign versus malignant will pursue outpatient workup with a PET imaging and biopsy if necessary after PET scan. S/P hernia surgery, patient presented with bowel obstruction, continues to have ileus. His leukocytosis is trending down on antibiotics and is clinically feeling well. The patient was seen and examined bedside plan of care as above reviewed and he is agreeable. - Data of Consult Requesting Physician: Alyssia Valverde MD Primary Care Provider: Virgilio Sanchez MD Family Provider: JaneConversion Provider - Consult Narrative Reason for consult: Rt lung spiculated lesion History of present illness: Mr. Freed is a 67 year old male was seen in the hospital status post ventral hernia repair--04/28/18, when he presented with bowel obstruction, patient had leukocytosis he was further evaluated to rule out infection with CT scan chest abdomen and pelvis, CT scan of the chest showed findings suggestive off right lung pneumonia, spiculated nodule in the right upper lobe measuring 1.2 x 1 cm suspicious for malignancy 1.4 cm left adrenal nodule. He is on antibiotics, white blood cell count has declined to 16,000 today. Patient reports that he quit smoking 9 months ago. He has a cough with clear phlegm. He denied any weight loss prior to his hospitalization. He has minimal abdominal discomfort. He is on parenteral feedings, continues to have post-opertaive ileus. Past Med Surg Social Fam HX - Past Medical History Medical history: COPD, GERD, hyperlipidemia, hypertension Additional medical history: polio Psychiatric history: no psych history - Past Surgical History Surgical History: appendectomy (open- perforated appendicitis) Additional surgical history: right hip repair - Social History Smoking Status: Current every day smoker Smokeless Tobacco Status: No Alcohol use: heavy (admits to 3-4 beers/day) Drug use: none - Family History Mother History Unknown: Yes Hx Family Cardiac Disorders: Yes (sister) Hx Family Respiratory Disorders: Yes (asthma) Hx Family Cancer: No Hx Family GI Disorders: No Hx Family Endocrine Disorder: No Hx Family Neuromuscular Disorders: No Hx Family Neurologic Disorders: No Hx Family HEENT Disorders: No Hx Family Autoimmune Disorders: No Medications and Allergies Ipratropium/Albuterol Sulfate [Combivent Respimat Inhal [place]] 1 puff IH QID 10/26 [History] Loratadine [Allergy Relief] 10 mg PO DAILY 09/09/17 [History] Metoprolol Succinate 25 mg PO DAILY 09/09/17 [History] Montelukast [Singulair] 10 mg PO DAILY 09/09/17 [History] Ranitidine HCl [Acid Director Of Sports Medicine] 150 mg PO BID 09/09/17 [History] Simvastatin [Zocor] 40 mg PO HS 09/09/17 [History] 3 Allergy/AdvReac Type Severity Reaction Status Date / Time Penicillins Allergy See Verified 04/10/18 12:50 Comments Review of systems: as in HPI otherwise negative Oncology - Exam - Constitutional Vitals: Temp Pulse Resp BP Pulse Ox 99.1 F 120 20 132/64 93 05/06/18 15:42 05/06/18 15:42 05/06/18 15:42 05/06/18 15:42 05/06/18 15:42 General appearance: average body habitus - Head Head exam: Present: atraumatic, normal inspection - Eye Eye exam: Present: sclera anicteric - ENT ENT exam: Present: mucous membranes moist - Respiratory Respiratory exam: Present: CTAB - Cardiovascular Cardiovascular exam: Present: +S1, +S2 - GI/Abdominal GI/Abdominal exam: Present: distended, soft Additional comments: s/p robotic hernia repair - Extremities Exam Additional comments: no edema or calf tenderness - Neurological Exam Neurological exam: Present: alert, CN II-XII intact, oriented X3 - Psychiatric Psychiatric exam: Present: normal mood Oncology - Results Labs: 3 05/06/18 05/06/18 05/06/18 16:55 10:56 09:12 WBC 16.4 H RBC 3.04 L Hgb 9.1 L Hct 27.3 L MCV 89.8 MCH 29.9 MCHC 33.3 RDW 15.0 H Plt Count 250 MPV 10.1 Immature Gran % 4.0 Seg Neutrophils % 78.4 Band Neutrophils % Lymphocytes % 6.5 Monocytes % 9.3 Eosinophils % 1.5 Basophils % 0.3 Metamyelocytes % Myelocytes % Neutrophils # 12.9 H Lymphocytes # 1.1 Monocytes # 1.5 H Eosinophils # 0.2 Basophils # 0.1 Reactive Lymphocytes Platelet Estimate Sodium Potassium Chloride Carbon Dioxide BUN Creatinine Est GFR ( Amer) Est GFR (Non-Af Amer) BUN/Creatinine Ratio Glucose POC Glucose 103 H 115 H Calculated Osmolality Lactic Acid Calcium Phosphorus Magnesium Albumin Prealbumin Triglycerides Urine Color Urine Clarity Urine pH Ur Specific [place] Urine Protein Urine Glucose (UA) Urine Ketones Urine Blood Urine Nitrite Urine Bilirubin Urine Urobilinogen Ur Leukocyte Esterase Urine Microscopic RBC Urine Microscopic WBC Ur Squamous Epith Cells Urine Bacteria Hyaline Casts Ur Culture Indicated? Specimen Rejected 3 05/06/18 05/06/18 05/06/18 07:15 04:39 03:10 WBC RBC Hgb Hct MCV MCH MCHC RDW Plt Count MPV Immature Gran % Seg Neutrophils % Band Neutrophils % Lymphocytes % Monocytes % Eosinophils % Basophils % Metamyelocytes % Myelocytes % Neutrophils # Lymphocytes # Monocytes # Eosinophils # Basophils # Reactive Lymphocytes Platelet Estimate Sodium 131 L Potassium 3.9 Chloride 100 Carbon Dioxide 24 BUN 15 Creatinine 0.42 L Est GFR ( Amer) > 60 Est GFR (Non-Af Amer) > 60 BUN/Creatinine Ratio 36 H Glucose 116 H POC Glucose 124 H 143 H Calculated Osmolality 274 L Lactic Acid Calcium 8.0 L Phosphorus 3.4 Magnesium 1.7 Albumin Prealbumin Triglycerides Urine Color Urine Clarity Urine pH Ur Specific [place] Urine Protein Urine Glucose (UA) Urine Ketones Urine Blood Urine Nitrite Urine Bilirubin Urine Urobilinogen Ur Leukocyte Esterase Urine Microscopic RBC Urine Microscopic WBC Ur Squamous Epith Cells Urine Bacteria Hyaline Casts Ur Culture Indicated? Specimen Rejected 3 05/06/18 05/05/18 05/05/18 01:04 19:53 15:39 WBC RBC Hgb Hct MCV MCH MCHC RDW Plt Count MPV Immature Gran % Seg Neutrophils % Band Neutrophils % Lymphocytes % Monocytes % Eosinophils % Basophils % Metamyelocytes % Myelocytes % Neutrophils # Lymphocytes # Monocytes # Eosinophils # Basophils # Reactive Lymphocytes Platelet Estimate Sodium Potassium Chloride Carbon Dioxide BUN Creatinine Est GFR ( Amer) Est GFR (Non-Af Amer) BUN/Creatinine Ratio Glucose POC Glucose 122 H 121 H 128 H Calculated Osmolality Lactic Acid Calcium Phosphorus Magnesium Albumin Prealbumin Triglycerides Urine Color Urine Clarity Urine pH Ur Specific [place] Urine Protein Urine Glucose (UA) Urine Ketones Urine Blood Urine Nitrite Urine Bilirubin Urine Urobilinogen Ur Leukocyte Esterase Urine Microscopic RBC Urine Microscopic WBC Ur Squamous Epith Cells Urine Bacteria Hyaline Casts Ur Culture Indicated? Specimen Rejected 3 05/05/18 05/05/18 05/05/18 11:14 07:42 06:00 WBC 22.3 H RBC 3.23 L Hgb 9.8 L Hct 28.7 L MCV 88.9 D MCH 30.3 MCHC 34.1 RDW 14.9 H Plt Count 259 MPV 10.2 Immature Gran % 4.5 H Seg Neutrophils % 79.6 Band Neutrophils % Lymphocytes % 6.7 Monocytes % 8.0 Eosinophils % 0.8 Basophils % 0.4 Metamyelocytes % Myelocytes % Neutrophils # 17.7 H Lymphocytes # 1.5 Monocytes # 1.8 H Eosinophils # 0.2 Basophils # 0.1 Reactive Lymphocytes Platelet Estimate Sodium Potassium Chloride Carbon Dioxide BUN Creatinine Est GFR ( Amer) Est GFR (Non-Af Amer) BUN/Creatinine Ratio Glucose POC Glucose 123 H 137 H Calculated Osmolality Lactic Acid Calcium Phosphorus Magnesium Albumin Prealbumin Triglycerides Urine Color Urine Clarity Urine pH Ur Specific [place] Urine Protein Urine Glucose (UA) Urine Ketones Urine Blood Urine Nitrite Urine Bilirubin Urine Urobilinogen Ur Leukocyte Esterase Urine Microscopic RBC Urine Microscopic WBC Ur Squamous Epith Cells Urine Bacteria Hyaline Casts Ur Culture Indicated? Specimen Rejected 3 05/05/18 05/05/18 05/05/18 04:37 04:37 04:10 WBC RBC Hgb Hct MCV MCH MCHC RDW Plt Count MPV Immature Gran % Seg Neutrophils % Band Neutrophils % Lymphocytes % Monocytes % Eosinophils % Basophils % Metamyelocytes % Myelocytes % Neutrophils # Lymphocytes # Monocytes # Eosinophils # Basophils # Reactive Lymphocytes Platelet Estimate Sodium 129 L Potassium 3.7 Chloride 100 Carbon Dioxide 22 L BUN 17 Creatinine 0.40 L Est GFR ( Amer) > 60 Est GFR (Non-Af Amer) > 60 BUN/Creatinine Ratio 43 H Glucose 107 H POC Glucose 105 H Calculated Osmolality 270 L Lactic Acid Calcium 8.0 L Phosphorus 3.1 Magnesium 1.6 Albumin Prealbumin Triglycerides Urine Color Urine Clarity Urine pH Ur Specific [place] Urine Protein Urine Glucose (UA) Urine Ketones Urine Blood Urine Nitrite Urine Bilirubin Urine Urobilinogen Ur Leukocyte Esterase Urine Microscopic RBC Urine Microscopic WBC Ur Squamous Epith Cells Urine Bacteria Hyaline Casts Ur Culture Indicated? Specimen Rejected MCV Delta 3 05/04/18 05/04/18 05/04/18 20:13 16:45 12:55 WBC 16.9 H RBC 2.86 L Hgb 8.8 L Hct 29.3 L MCV 102.4 H D MCH 30.8 MCHC 30.0 L RDW 15.6 H Plt Count 226 MPV 10.5 Immature Gran % 2.8 Seg Neutrophils % 84.7 Band Neutrophils % Lymphocytes % 6.0 Monocytes % 5.2 Eosinophils % 0.9 Basophils % 0.4 Metamyelocytes % Myelocytes % Neutrophils # 14.3 H Lymphocytes # 1.0 Monocytes # 0.9 Eosinophils # 0.2 Basophils # 0.1 Reactive Lymphocytes Platelet Estimate Sodium Potassium Chloride Carbon Dioxide BUN Creatinine Est GFR ( Amer) Est GFR (Non-Af Amer) BUN/Creatinine Ratio Glucose POC Glucose 129 H 121 H Calculated Osmolality Lactic Acid Calcium Phosphorus Magnesium Albumin Prealbumin Triglycerides Urine Color Urine Clarity Urine pH Ur Specific [place] Urine Protein Urine Glucose (UA) Urine Ketones Urine Blood Urine Nitrite Urine Bilirubin Urine Urobilinogen Ur Leukocyte Esterase Urine Microscopic RBC Urine Microscopic WBC Ur Squamous Epith Cells Urine Bacteria Hyaline Casts Ur Culture Indicated? Specimen Rejected 3 05/04/18 05/04/18 05/04/18 11:45 11:21 08:00 WBC RBC Hgb Hct MCV MCH MCHC RDW Plt Count MPV Immature Gran % Seg Neutrophils % Band Neutrophils % Lymphocytes % Monocytes % Eosinophils % Basophils % Metamyelocytes % Myelocytes % Neutrophils # Lymphocytes # Monocytes # Eosinophils # Basophils # Reactive Lymphocytes Platelet Estimate Sodium Potassium Chloride Carbon Dioxide BUN Creatinine Est GFR ( Amer) Est GFR (Non-Af Amer) BUN/Creatinine Ratio Glucose POC Glucose 116 H 128 H Calculated Osmolality Lactic Acid Calcium Phosphorus Magnesium Albumin Prealbumin Triglycerides Urine Color Urine Clarity Urine pH Ur Specific [place] Urine Protein Urine Glucose (UA) Urine Ketones Urine Blood Urine Nitrite Urine Bilirubin Urine Urobilinogen Ur Leukocyte Esterase Urine Microscopic RBC Urine Microscopic WBC Ur Squamous Epith Cells Urine Bacteria Hyaline Casts Ur Culture Indicated? Specimen Rejected MCV Delta 3 05/04/18 05/04/18 05/03/18 03:56 03:31 23:07 WBC RBC Hgb Hct MCV MCH MCHC RDW Plt Count MPV Immature Gran % Seg Neutrophils % Band Neutrophils % Lymphocytes % Monocytes % Eosinophils % Basophils % Metamyelocytes % Myelocytes % Neutrophils # Lymphocytes # Monocytes # Eosinophils # Basophils # Reactive Lymphocytes Platelet Estimate Sodium 131 L Potassium 3.5 Chloride 100 Carbon Dioxide 24 BUN 17 Creatinine 0.46 L Est GFR ( Amer) > 60 Est GFR (Non-Af Amer) > 60 BUN/Creatinine Ratio 37 H Glucose 127 H POC Glucose 120 H 120 H Calculated Osmolality 275 L Lactic Acid Calcium 8.0 L Phosphorus 3.8 Magnesium 1.7 Albumin Prealbumin Triglycerides Urine Color Urine Clarity Urine pH Ur Specific [place] Urine Protein Urine Glucose (UA) Urine Ketones Urine Blood Urine Nitrite Urine Bilirubin Urine Urobilinogen Ur Leukocyte Esterase Urine Microscopic RBC Urine Microscopic WBC Ur Squamous Epith Cells Urine Bacteria Hyaline Casts Ur Culture Indicated? Specimen Rejected 3 05/03/18 05/03/18 05/03/18 20:22 16:16 11:35 WBC RBC Hgb Hct MCV MCH MCHC RDW Plt Count MPV Immature Gran % Seg Neutrophils % Band Neutrophils % Lymphocytes % Monocytes % Eosinophils % Basophils % Metamyelocytes % Myelocytes % Neutrophils # Lymphocytes # Monocytes # Eosinophils # Basophils # Reactive Lymphocytes Platelet Estimate Sodium Potassium Chloride Carbon Dioxide BUN Creatinine Est GFR ( Amer) Est GFR (Non-Af Amer) BUN/Creatinine Ratio Glucose POC Glucose 113 H 123 H 117 H Calculated Osmolality Lactic Acid Calcium Phosphorus Magnesium Albumin Prealbumin Triglycerides Urine Color Urine Clarity Urine pH Ur Specific [place] Urine Protein Urine Glucose (UA) Urine Ketones Urine Blood Urine Nitrite Urine Bilirubin Urine Urobilinogen Ur Leukocyte Esterase Urine Microscopic RBC Urine Microscopic WBC Ur Squamous Epith Cells Urine Bacteria Hyaline Casts Ur Culture Indicated? Specimen Rejected 3 05/03/18 05/03/18 05/03/18 10:20 08:06 04:00 WBC 14.7 H RBC 3.41 L Hgb 10.2 L Hct 30.5 L MCV 89.4 MCH 29.9 MCHC 33.4 RDW 14.6 H Plt Count 270 MPV 9.9 Immature Gran % Seg Neutrophils % 70.0 Band Neutrophils % 2.0 Lymphocytes % 18.0 Monocytes % 8.0 Eosinophils % 2.0 Basophils % Metamyelocytes % Myelocytes % Neutrophils # 10.6 H Lymphocytes # 2.7 Monocytes # 1.2 Eosinophils # 0.3 Basophils # Reactive Lymphocytes Platelet Estimate Normal Sodium 135 L Potassium 3.2 L Chloride 100 Carbon Dioxide 27 BUN 16 Creatinine 0.44 L Est GFR ( Amer) > 60 Est GFR (Non-Af Amer) > 60 BUN/Creatinine Ratio 36 H Glucose 127 H POC Glucose 125 H Calculated Osmolality 283 Lactic Acid Calcium 8.1 L Phosphorus 3.3 Magnesium 1.7 Albumin Prealbumin Triglycerides 78 Urine Color Urine Clarity Urine pH Ur Specific [place] Urine Protein Urine Glucose (UA) Urine Ketones Urine Blood Urine Nitrite Urine Bilirubin Urine Urobilinogen Ur Leukocyte Esterase Urine Microscopic RBC Urine Microscopic WBC Ur Squamous Epith Cells Urine Bacteria Hyaline Casts Ur Culture Indicated? Specimen Rejected 3 05/03/18 05/02/18 05/02/18 03:32 23:43 20:01 WBC RBC Hgb Hct MCV MCH MCHC RDW Plt Count MPV Immature Gran % Seg Neutrophils % Band Neutrophils % Lymphocytes % Monocytes % Eosinophils % Basophils % Metamyelocytes % Myelocytes % Neutrophils # Lymphocytes # Monocytes # Eosinophils # Basophils # Reactive Lymphocytes Platelet Estimate Sodium Potassium Chloride Carbon Dioxide BUN Creatinine Est GFR ( Amer) Est GFR (Non-Af Amer) BUN/Creatinine Ratio Glucose POC Glucose 123 H 132 H 169 H Calculated Osmolality Lactic Acid Calcium Phosphorus Magnesium Albumin Prealbumin Triglycerides Urine Color Urine Clarity Urine pH Ur Specific [place] Urine Protein Urine Glucose (UA) Urine Ketones Urine Blood Urine Nitrite Urine Bilirubin Urine Urobilinogen Ur Leukocyte Esterase Urine Microscopic RBC Urine Microscopic WBC Ur Squamous Epith Cells Urine Bacteria Hyaline Casts Ur Culture Indicated? Specimen Rejected 3 05/02/18 05/02/18 05/02/18 18:00 17:15 11:39 WBC RBC Hgb Hct MCV MCH MCHC RDW Plt Count MPV Immature Gran % Seg Neutrophils % Band Neutrophils % Lymphocytes % Monocytes % Eosinophils % Basophils % Metamyelocytes % Myelocytes % Neutrophils # Lymphocytes # Monocytes # Eosinophils # Basophils # Reactive Lymphocytes Platelet Estimate Sodium Potassium Chloride Carbon Dioxide BUN Creatinine Est GFR ( Amer) Est GFR (Non-Af Amer) BUN/Creatinine Ratio Glucose POC Glucose 126 H 104 H Calculated Osmolality Lactic Acid Calcium Phosphorus Magnesium Albumin Prealbumin Triglycerides Urine Color Dark Yellow Urine Clarity Clear Urine pH 7.0 Ur Specific [place] 1.025 Urine Protein 30 H Urine Glucose (UA) Normal Urine Ketones 15 H Urine Blood Negative Urine Nitrite Positive A Urine Bilirubin Small H Urine Urobilinogen Normal Ur Leukocyte Esterase Trace H Urine Microscopic RBC 0-3 Urine Microscopic WBC 0-3 Ur Squamous Epith Cells Many H Urine Bacteria None Seen Hyaline Casts None Seen Ur Culture Indicated? NO. A Specimen Rejected 3 05/02/18 05/02/18 05/02/18 05:52 04:04 04:04 WBC RBC Hgb Hct MCV MCH MCHC RDW Plt Count MPV Immature Gran % Seg Neutrophils % Band Neutrophils % Lymphocytes % Monocytes % Eosinophils % Basophils % Metamyelocytes % Myelocytes % Neutrophils # Lymphocytes # Monocytes # Eosinophils # Basophils # Reactive Lymphocytes Platelet Estimate Sodium 136 Potassium 3.2 L Chloride 97 L Carbon Dioxide 29 BUN 20 Creatinine 0.48 L Est GFR ( Amer) > 60 Est GFR (Non-Af Amer) > 60 BUN/Creatinine Ratio 42 H Glucose 125 H POC Glucose 115 H Calculated Osmolality 286 Lactic Acid Calcium 8.4 L Phosphorus 3.4 Magnesium 1.9 Albumin 2.9 L Prealbumin 7.0 L Triglycerides Urine Color Urine Clarity Urine pH Ur Specific [place] Urine Protein Urine Glucose (UA) Urine Ketones Urine Blood Urine Nitrite Urine Bilirubin Urine Urobilinogen Ur Leukocyte Esterase Urine Microscopic RBC Urine Microscopic WBC Ur Squamous Epith Cells Urine Bacteria Hyaline Casts Ur Culture Indicated? Specimen Rejected 3 05/02/18 05/01/18 05/01/18 04:04 16:59 11:16 WBC 16.5 H RBC 3.75 L Hgb 11.4 L Hct 33.6 L MCV 89.6 MCH 30.4 MCHC 33.9 RDW 14.7 H Plt Count 347 MPV 9.8 Immature Gran % Seg Neutrophils % 70.0 Band Neutrophils % Lymphocytes % 20.0 Monocytes % 2.0 Eosinophils % Basophils % Metamyelocytes % 2.0 H Myelocytes % 6.0 H Neutrophils # 11.6 H Lymphocytes # 3.3 Monocytes # 0.3 Eosinophils # Basophils # Reactive Lymphocytes Platelet Estimate Normal Sodium Potassium Chloride Carbon Dioxide BUN Creatinine Est GFR ( Amer) Est GFR (Non-Af Amer) BUN/Creatinine Ratio Glucose POC Glucose 134 H 83 Calculated Osmolality Lactic Acid Calcium Phosphorus Magnesium Albumin Prealbumin Triglycerides Urine Color Urine Clarity Urine pH Ur Specific [place] Urine Protein Urine Glucose (UA) Urine Ketones Urine Blood Urine Nitrite Urine Bilirubin Urine Urobilinogen Ur Leukocyte Esterase Urine Microscopic RBC Urine Microscopic WBC Ur Squamous Epith Cells Urine Bacteria Hyaline Casts Ur Culture Indicated? Specimen Rejected 3 05/01/18 05/01/18 05/01/18 05:01 03:31 03:31 WBC 14.9 H RBC 3.85 L Hgb 12.0 L Hct 35.8 L MCV 93.0 MCH 31.2 MCHC 33.5 RDW 14.6 H Plt Count 379 MPV 9.9 Immature Gran % 7.0 H Seg Neutrophils % 69.1 Band Neutrophils % Lymphocytes % 11.3 Monocytes % 11.1 Eosinophils % 0.8 Basophils % 0.7 Metamyelocytes % Myelocytes % Neutrophils # 10.3 H Lymphocytes # 1.7 Monocytes # 1.7 H Eosinophils # 0.1 Basophils # 0.1 Reactive Lymphocytes Platelet Estimate Sodium 139 Potassium 3.6 Chloride 101 Carbon Dioxide 29 BUN 25 H Creatinine 0.56 L Est GFR ( Amer) > 60 Est GFR (Non-Af Amer) > 60 BUN/Creatinine Ratio 45 H Glucose 90 POC Glucose 78 Calculated Osmolality 292 Lactic Acid Calcium 8.5 L Phosphorus Magnesium Albumin Prealbumin Triglycerides Urine Color Urine Clarity Urine pH Ur Specific [place] Urine Protein Urine Glucose (UA) Urine Ketones Urine Blood Urine Nitrite Urine Bilirubin Urine Urobilinogen Ur Leukocyte Esterase Urine Microscopic RBC Urine Microscopic WBC Ur Squamous Epith Cells Urine Bacteria Hyaline Casts Ur Culture Indicated? Specimen Rejected 3 05/01/18 04/30/18 04/30/18 01:16 17:16 11:06 WBC RBC Hgb Hct MCV MCH MCHC RDW Plt Count MPV Immature Gran % Seg Neutrophils % Band Neutrophils % Lymphocytes % Monocytes % Eosinophils % Basophils % Metamyelocytes % Myelocytes % Neutrophils # Lymphocytes # Monocytes # Eosinophils # Basophils # Reactive Lymphocytes Platelet Estimate Sodium Potassium Chloride Carbon Dioxide BUN Creatinine Est GFR ( Amer) Est GFR (Non-Af Amer) BUN/Creatinine Ratio Glucose POC Glucose 85 83 85 Calculated Osmolality Lactic Acid Calcium Phosphorus Magnesium Albumin Prealbumin Triglycerides Urine Color Urine Clarity Urine pH Ur Specific [place] Urine Protein Urine Glucose (UA) Urine Ketones Urine Blood Urine Nitrite Urine Bilirubin Urine Urobilinogen Ur Leukocyte Esterase Urine Microscopic RBC Urine Microscopic WBC Ur Squamous Epith Cells Urine Bacteria Hyaline Casts Ur Culture Indicated? Specimen Rejected 3 04/30/18 04/30/18 04/30/18 05:50 04:39 04:39 WBC 13.4 H RBC 3.72 L Hgb 11.4 L Hct 33.7 L MCV 90.6 MCH 30.6 MCHC 33.8 RDW 14.7 H Plt Count 416 H MPV 9.8 Immature Gran % Seg Neutrophils % 54.0 Band Neutrophils % Lymphocytes % 32.0 Monocytes % 12.0 Eosinophils % 2.0 Basophils % Metamyelocytes % Myelocytes % Neutrophils # 7.2 Lymphocytes # 4.3 Monocytes # 1.6 H Eosinophils # 0.3 Basophils # Reactive Lymphocytes Present A Platelet Estimate Normal Sodium 140 Potassium 3.5 Chloride 100 Carbon Dioxide 31 H BUN 28 H Creatinine 0.61 L Est GFR ( Amer) > 60 Est GFR (Non-Af Amer) > 60 BUN/Creatinine Ratio 46 H Glucose 101 POC Glucose 94 Calculated Osmolality 296 Lactic Acid Calcium 8.5 L Phosphorus Magnesium Albumin Prealbumin Triglycerides Urine Color Urine Clarity Urine pH Ur Specific [place] Urine Protein Urine Glucose (UA) Urine Ketones Urine Blood Urine Nitrite Urine Bilirubin Urine Urobilinogen Ur Leukocyte Esterase Urine Microscopic RBC Urine Microscopic WBC Ur Squamous Epith Cells Urine Bacteria Hyaline Casts Ur Culture Indicated? Specimen Rejected 3 04/30/18 04/29/18 04/29/18 00:16 20:58 20:58 WBC 14.9 H RBC 3.76 L Hgb 11.6 L Hct 34.6 L MCV 92.0 MCH 30.9 MCHC 33.5 RDW 14.6 H Plt Count 401 H MPV 9.8 Immature Gran % 4.5 H Seg Neutrophils % 74.3 Band Neutrophils % Lymphocytes % 8.5 Monocytes % 12.0 Eosinophils % 0.1 Basophils % 0.6 Metamyelocytes % Myelocytes % Neutrophils # 11.1 H Lymphocytes # 1.3 Monocytes # 1.8 H Eosinophils # 0.0 Basophils # 0.1 Reactive Lymphocytes Platelet Estimate Sodium Potassium Chloride Carbon Dioxide BUN Creatinine Est GFR ( Amer) Est GFR (Non-Af Amer) BUN/Creatinine Ratio Glucose POC Glucose 94 Calculated Osmolality Lactic Acid 1.0 Calcium Phosphorus Magnesium Albumin Prealbumin Triglycerides Urine Color Urine Clarity Urine pH Ur Specific [place] Urine Protein Urine Glucose (UA) Urine Ketones Urine Blood Urine Nitrite Urine Bilirubin Urine Urobilinogen Ur Leukocyte Esterase Urine Microscopic RBC Urine Microscopic WBC Ur Squamous Epith Cells Urine Bacteria Hyaline Casts Ur Culture Indicated? Specimen Rejected 3 04/29/18 04/29/18 04/29/18 17:56 11:36 05:55 WBC RBC Hgb Hct MCV MCH MCHC RDW Plt Count MPV Immature Gran % Seg Neutrophils % Band Neutrophils % Lymphocytes % Monocytes % Eosinophils % Basophils % Metamyelocytes % Myelocytes % Neutrophils # Lymphocytes # Monocytes # Eosinophils # Basophils # Reactive Lymphocytes Platelet Estimate Sodium Potassium Chloride Carbon Dioxide BUN Creatinine Est GFR ( Amer) Est GFR (Non-Af Amer) BUN/Creatinine Ratio Glucose POC Glucose 97 107 H 120 H Calculated Osmolality Lactic Acid Calcium Phosphorus Magnesium Albumin Prealbumin Triglycerides Urine Color Urine Clarity Urine pH Ur Specific [place] Urine Protein Urine Glucose (UA) Urine Ketones Urine Blood Urine Nitrite Urine Bilirubin Urine Urobilinogen Ur Leukocyte Esterase Urine Microscopic RBC Urine Microscopic WBC Ur Squamous Epith Cells Urine Bacteria Hyaline Casts Ur Culture Indicated? Specimen Rejected Consult Discharge Plan - Plan Referrals: Virgilio Sanchez MD [Primary Care Provider] - 05/08/18 10:45 am Breanna Ocampo CNP [Advanced Practice Nurse] - 05/15/18 1:30 pm
[2018-05-06] MEDS: Clinimix E 5%-15% SOLUTION 2,000 ML with MVI, adult with vitamin K 10 ML, Magnesium S... IVC SCH (17:37)
[2018-05-06] MEDS: Acetaminophen 325 MG TABLET PO PRN (18:39)
[2018-05-06] MEDS: Bisacodyl 10 MG RECTAL SUPPOSITORY RC SCH (21:39)
[2018-05-07] MEDS: MetroNIDAZOLE 500 MG/100 ML 500 MG/100 ML BAG IVPB SCH ×4 (00:25→23:37)
[2018-05-07] MEDS: Metoclopramide 10 MG/2 ML VIAL IVP SCH ×5 (00:26→23:38)
[2018-05-07] MEDS: Acetaminophen 325 MG TABLET PO PRN ×2 (00:27→23:36)
[2018-05-07] MEDS ORDERED: Melatonin 3 MG TABLET PO SCH (01:15)
[2018-05-07] MEDS: Ipratropium/Albuterol Neb 3 ML IH SCH ×6 (04:04→23:55)
[2018-05-07 05:25] LABS: Basophils % 0.1 %; Eosinophils # 0.2 K/mcL (0.0-0.6); Eosinophils % 1.7 %; Hematocrit 24.3 % (37.5-50.1); Hemoglobin 8.1 g/dL (12.9-16.9); Immature Granulocytes % 2.8 % (0-4); Lymphocytes # 0.9 K/mcL (0.6-4.6); Lymphocytes % 6.3 %; Mean Corpuscular HGB Conc 33.3 g/dL (31.6-35.5); Mean Corpuscular Hemoglobin 30.2 pg (28.0-33.3); Mean Corpuscular Volume 90.7 fL (83.0-100.0); Mean Platelet Volume 10.5 fL (9.4-12.4); Monocytes # 1.5 K/mcL (0.0-1.3); Monocytes % 10.8 %; Neutrophils # 11.1 K/mcL (1.6-8.9); Platelet Count 261 K/mcL (140-400); Red Blood Count 2.68 M/mcL (4.19-5.50); Red Cell Distribution Width 15.1 % (11.5-14.5); Segmented Neutrophils % 78.3 %
[2018-05-07 05:46] LABS: BUN/Creatinine Ratio 38 (6-26); Blood Urea Nitrogen 11 mg/dL (8-23); Calcium 6.8 mg/dL (8.6-10.3); Carbon Dioxide 20 mEq/L (23-29); Chloride 110 mEq/L (98-107); Glucose 114 mg/dL (70-105); Magnesium 1.5 mg/dL (1.6-2.6); Osmolality,Calculated 280 (280-300); Phosphorous 3.2 mg/dL (2.7-4.5); Sodium 135 mEq/L (136-145); eGFR For Non-African Americans > 60 (> 60)
[2018-05-07] MEDS: *HR* Heparin 5,000 UNIT/ML VIAL SQ SCH ×2 (06:02→17:21)
[2018-05-07] MEDS: Levofloxacin 750 MG/150 ML 750 MG/150 ML BAG IVPB SCH (08:15)
[2018-05-07] MEDS: Loratadine 10 MG TABLET PO SCH (08:16)
[2018-05-07] MEDS: Metoprolol XL (24 HR) Succ 50 MG TAB.ER.24H PO SCH (08:16)
[2018-05-07] MEDS: 0.9 % Sodium Chloride 1,000 ML IVC SCH (08:17)
[2018-05-07] MEDS: Simethicone 80 MG TAB.CHEW PO PRN (08:19)
[2018-05-07] MEDS: OXYCODONE Oral CONC 10 MG/0.5 ML ORAL.SYG SL PRN (08:19)
--- NOTE | 2018-05-07 09:25 | General Surgery Progress Note ---
<MelanyAmilcarAlex W - Last Filed: 05/07/18 11:23> Date of Encounter: 05/07/18 Time of Encounter: 09:22 - Assessment and Plan (1) Umbilical hernia Current Visit: Yes Status: Chronic -POD#8 s/p laura recurrent ventral hernia repair Ileus vs SBO -No acute changes overnight, Patient is still distended on exam but denies n/v -Patient is continuing to have small bowel movements with the aid of enemas -continue to monitor for n/v or increased distension. Consider NG tube if distension is not resolving or the patient is vomiting -NPO with ice chips 1 cup every 8 hours. -encourage ambulation and IS -continue reglan and simethicone -surgery will continue to follow -Continue ABX and pain control per primary -will continue to follow closely Qualifiers: Obstruction and gangrene presence: with obstruction but without gangrene Qualified Code(s): K42.0 - Umbilical hernia with obstruction, without gangrene (2) Pneumonia Current Visit: Yes Status: Suspected suspected per primary care per primary Qualifiers: Pneumonia type: due to unspecified organism Laterality: right Lung location: lower lobe of lung Qualified Code(s): J18.1 - Lobar pneumonia, unspecified organism Subjective Patient reports: no new complaints, flatus, bowel movement, fever Narrative: Patient states he is doing the same since yesterday. Abdomen is batch still operator and distended no change from yesterday. Patient had a bowel movement last night after an enema. Patient states he has not passing gas. Patient denies nausea or vomiting. Patient admits to having a fever no chills or night sweats. Denies chest pain or shortness of breath. Patient is working to use incentive spirometry more. Objective Vital Signs - Last 8 Hours Temp Pulse Resp BP Pulse Ox 05/07/18 06:36 98.3 F 57 17 154/72 97 05/07/18 04:35 98.0 F 112 15 154/72 96 Intake and Output 05/06/18 05/07/18 05/07/18 23:59 07:59 15:59 Intake Total 1100 / 1100 1100 / 1100 Output Total 300 / 300 700 / 700 Balance 800 / 800 400 / 400 Intake: IV Fluids 1100 / 1100 1100 / 1100 0.9 % Sodium Chloride 1,000 ML 1000 / 1000 1000 / 1000 @ 100 mls/hr IVC .Q10H KATIE Rx#: [id number] Flagyl Premix 500 MG/100 ML 500 100 / 100 100 / 100 mg In 100 ml @ 100 mls/hr IVPB Q8HR KATIE Rx#:[id number] Oral 0 / 0 0 / 0 Output: Urine 300 / 300 700 / 700 Other: Meal NPO Percent of Meal Consumed 0% # Voids 1 Weight 70.2 kg Blood Glucose* 124 132 136 Patient Weight 05/07/18 23:59 Weight 70.2 kg - General physical appearance well nourished, moderate distress - Eyes PERRL, normal ocular movement - ENT atraumatic, normocephalic, CN 2-12 grossly intact - Neck Neck exam: no masses - Respiratory normal expansion, normal respiratory effort, clear to auscultation - Cardiovascular Cardiovascular exam: Present: RRR, no murmurs/rubs/gallops - Abdomen Abdomen: Present: bowel sounds present, distended, tender Abdominal Tenderness: diffusely Hernia: umbilical (Area of redness at umbilical hernia has not changed) - Integumentary no rash, no growths, no abnormal pigmentation - Neurologic normal coordination, normal sensation - Musculoskeletal normal posture - Psychiatric speech is normal, memory intact - Labs 05/07/18 04:45 05/07/18 04:45 Diabetes panel 05/07/18 Range/Units 04:45 Sodium 135 L (136-145) mEq/L Potassium 3.0 L (3.5-5.1) mEq/L Chloride 110 H (98-107) mEq/L Carbon Dioxide 20 L (23-29) mEq/L BUN 11 (8-23) mg/dL Creatinine 0.29 L (0.70-1.30) mg/dL Glucose 114 H (70-105) mg/dL Calcium 6.8 L (8.6-10.3) mg/dL Calcium panel 05/07/18 Range/Units 04:45 Calcium 6.8 L (8.6-10.3) mg/dL Phosphorus 3.2 (2.7-4.5) mg/dL Pituitary panel 05/07/18 Range/Units 04:45 Sodium 135 L (136-145) mEq/L Potassium 3.0 L (3.5-5.1) mEq/L Chloride 110 H (98-107) mEq/L Carbon Dioxide 20 L (23-29) mEq/L BUN 11 (8-23) mg/dL Creatinine 0.29 L (0.70-1.30) mg/dL Glucose 114 H (70-105) mg/dL Calcium 6.8 L (8.6-10.3) mg/dL Adrenal panel 05/07/18 Range/Units 04:45 Sodium 135 L (136-145) mEq/L Potassium 3.0 L (3.5-5.1) mEq/L Chloride 110 H (98-107) mEq/L Carbon Dioxide 20 L (23-29) mEq/L BUN 11 (8-23) mg/dL Creatinine 0.29 L (0.70-1.30) mg/dL Glucose 114 H (70-105) mg/dL Calcium 6.8 L (8.6-10.3) mg/dL - VTE Documentation of Mechanical Device: Intermittent pneumatic compression device Consult Discharge Plan - Plan Referrals: Virgilio Sanchez MD [Primary Care Provider] - 05/08/18 10:45 am Breanna Ocampo CNP [Advanced Practice Nurse] - 05/15/18 1:30 pm <Dann Collins - Last Filed: 05/08/18 06:43> Date of Encounter: 05/07/18 Objective Vital Signs - Last 8 Hours Temp Pulse Resp BP Pulse Ox 05/08/18 04:42 98.2 F 120 14 162/88 94 05/07/18 23:55 20 95 Intake and Output 05/07/18 05/07/18 05/08/18 15:59 23:59 07:59 Intake Total 100 / 100 100 / 100 100 / 100 Output Total 600 / 600 300 / 300 Balance 100 / 100 -500 / -500 -200 / -200 Intake: IV Fluids 100 / 100 100 / 100 100 / 100 Flagyl Premix 500 MG/100 ML 500 100 / 100 100 / 100 100 / 100 mg In 100 ml @ 100 mls/hr IVPB Q8HR [facility] Rx#:[id number] Oral 0 / 0 0 / 0 0 / 0 Output: Urine 600 / 600 300 / 300 Other: Meal NPO NPO DINNER Percent of Meal Consumed 0% # Voids 2 # Bowel Movements 0 Weight 75.4 kg Blood Glucose* 122 136 126 - Labs 05/07/18 04:45 05/08/18 05:20 Diabetes panel 05/08/18 Range/Units 05:20 Sodium 131 L (136-145) mEq/L Potassium 4.2 (3.5-5.1) mEq/L Chloride 102 (98-107) mEq/L Carbon Dioxide 22 L (23-29) mEq/L BUN 13 (8-23) mg/dL Creatinine 0.31 L (0.70-1.30) mg/dL Glucose 122 H (70-105) mg/dL Calcium 8.1 L (8.6-10.3) mg/dL Calcium panel 05/08/18 Range/Units 05:20 Calcium 8.1 L (8.6-10.3) mg/dL Phosphorus 3.9 (2.7-4.5) mg/dL Pituitary panel 05/08/18 Range/Units 05:20 Sodium 131 L (136-145) mEq/L Potassium 4.2 (3.5-5.1) mEq/L Chloride 102 (98-107) mEq/L Carbon Dioxide 22 L (23-29) mEq/L BUN 13 (8-23) mg/dL Creatinine 0.31 L (0.70-1.30) mg/dL Glucose 122 H (70-105) mg/dL Calcium 8.1 L (8.6-10.3) mg/dL Adrenal panel 05/08/18 Range/Units 05:20 Sodium 131 L (136-145) mEq/L Potassium 4.2 (3.5-5.1) mEq/L Chloride 102 (98-107) mEq/L Carbon Dioxide 22 L (23-29) mEq/L BUN 13 (8-23) mg/dL Creatinine 0.31 L (0.70-1.30) mg/dL Glucose 122 H (70-105) mg/dL Calcium 8.1 L (8.6-10.3) mg/dL - Attending Attestation I examined this patient and my medical decision-making was reviewed with the Resident Physician. I agree with the documented findings, disposition and treatment plan as described except to the extent set forth below. I reviewed the above assessment and evaluation agree with the above plan. Noted mild decrease in the amount of erythema surrounding the umbilicus. Abdomen is still distended and tympanitic with positive bowel sounds. Agree with current ice chips and continue to wait for bowel function returned. On antibiotics as well as IV nutrition. White count decreasing and currently 14k. Continue to observe.
[2018-05-07] MEDS: Potassium Chloride Elixir 20 MEQ/15 ML UDC PO SCH ×2 (12:06→17:20)
--- NOTE | 2018-05-07 13:31 | Internal Med Progress Note ---
Date of Encounter: 05/07/18 Time of Encounter: 10:40 - Assessment and plan (1) Pneumonia Current Visit: Yes Status: Suspected Assessment and plan: suspected per CT chest and leukocytosis, fever spike; improving now; suspect fever is from atelectasis; to comply with IS at least 6times/hour; continue IV antibiotics as below; supportive care and supplemental O2; Qualifiers: Pneumonia type: due to unspecified organism Laterality: right Lung location: lower lobe of lung Qualified Code(s): J18.1 - Lobar pneumonia, unspecified organism (2) Small bowel obstruction Current Visit: Yes Status: Acute Assessment and plan: Initial CT abdomen/pelvis showed high-grade small bowel obstruction with transition point in the umbilical hernia. Surgery has been consulted, patient underwent Robotic Recurrent Incisional hernia repair mesh on 04/28/18. Continues to have abdominal distention; he has no bowel movements today; Continue postop management per surgery- only on ice chips, continue TPN. Continue Reglan, Simethicone, pain control with when necessary oxycodone; to consider NG tube for nausea, vomiting, worsening abdominal distension; Completed 10 days of IV antibiotics- ciprofloxacin and Flagyl. d/w surgery- no abdominal infection; on IV Levaquin- day 3 for possible RLL PNA , and continue IV Flagyl and Fluconazole per Surgery; (3) COPD (chronic obstructive pulmonary disease) Current Visit: Yes Status: Chronic Qualifiers: COPD type: chronic bronchitis Chronic bronchitis type: unspecified Qualified Code(s): J42 - Unspecified chronic bronchitis (4) Umbilical hernia Current Visit: Yes Status: Chronic Qualifiers: Obstruction and gangrene presence: with obstruction but without gangrene Qualified Code(s): K42.0 - Umbilical hernia with obstruction, without gangrene (5) NUNU (acute kidney injury) Current Visit: Yes Status: Resolved (6) SIRS (systemic inflammatory response syndrome) Current Visit: Yes Status: Resolved (7) Essential hypertension Current Visit: Yes Status: Chronic (8) Lung nodule seen on imaging study Current Visit: Yes Status: Chronic Assessment and plan: CT chest revealed an incidental finding of 1.2 x 1 cm spiculated nodule in the right upper lobe, suspicious for malignancy. Also shows 1.4 cm left adrenal nodule. Patient has been a heavy smoker, quit now. Oncology consult appreciated- will f/up as outpatient with PET CT and possible biopsy; (9) Electrolyte imbalance Current Visit: Yes Status: Acute Assessment and plan: noted to have hypokalemia and hypomagnesemia, supplement with IV and PO; - Time Spent With Patient Total time spent is greater than 50% in coordination of care (as documented) at patient's floor/unit and/or counseling patient: - Subjective Interval history: Patient had a restless night, could not sleep well; had some bradycardia and desaturation earlier but improved now; continues to have slightly worse abdominal distension; has flatus, no BMs; no further fever spikes; no chest pain , dyspnea, leg swelling; no nausea, vomiting; - Constitutional Vitals: Temp Pulse Resp BP Pulse Ox 98.5 F 69 16 147/74 94 05/07/18 11:30 05/07/18 11:30 05/07/18 11:30 05/07/18 11:30 05/07/18 11:30 General appearance: Present: A&O X 2 (issues with memory occasionally, likely due to acute illness), answers questions appropriately - Respiratory Respiratory exam: Present: decreased breath sounds (improved at right base), CTAB. Absent: accessory muscle use, rales, rhonchi, wheezes - Cardiovascular Cardiovascular exam: Present: RRR, +S1, +S2, tachycardia. Absent: diastolic murmur, gallop, rubs, systolic murmur - GI/Abdominal GI/Abdominal exam: Present: diminished bowel sounds, distended (slightly worse) , soft, no peritoneal signs. Absent: tenderness Internal Medicine: Result - Labs CBC & Chem 7: 05/07/18 04:45 05/07/18 04:45 Labs: Short CBC 05/07/18 Range/Units 04:45 WBC 14.2 H (4.3-11.1) K/mcL Hgb 8.1 L (12.9-16.9) g/dL Hct 24.3 L (37.5-50.1) % Plt Count 261 (140-400) K/mcL Neutrophils # 11.1 H (1.6-8.9) K/mcL BMP 05/07/18 04:45 Sodium 135 L Potassium 3.0 L Chloride 110 H Carbon Dioxide 20 L BUN 11 Creatinine 0.29 L Glucose 114 H Calcium 6.8 L - ABG Interpretation ABG results: PT/INR, D-dimer PT 13.2 Seconds (9.4-12.1) H 04/26/18 13:34 - VTE Documentation of Mechanical Device: Intermittent pneumatic compression device Consult Discharge Plan - Plan Referrals: Virgilio Sanchez MD [Primary Care Provider] - 05/08/18 10:45 am Breanna Ocampo CNP [Advanced Practice Nurse] - 05/15/18 1:30 pm
[2018-05-07] MEDS ORDERED: Clinimix E 5%-15% SOLUTION 2,000 ML with MVI, adult with vitamin K 10 ML, Magnesium S... IVC SCH (17:00)
[2018-05-07] MEDS ORDERED: Clinimix E 5%-15% SOLUTION 2,000 ML, Parenteral Amino Acid 10% 0 ML with MVI, adult wi... IVC SCH (17:00)
[2018-05-07] MEDS: Bisacodyl 10 MG RECTAL SUPPOSITORY RC SCH (21:30)
[2018-05-08] MEDS ORDERED: Melatonin 3 MG TABLET PO STA (03:08)
[2018-05-08] MEDS: OXYCODONE Oral CONC 10 MG/0.5 ML ORAL.SYG SL PRN ×2 (03:17→20:09)
[2018-05-08] MEDS: Ipratropium/Albuterol Neb 3 ML IH SCH ×6 (04:13→23:37)
[2018-05-08 06:00] LABS: BUN/Creatinine Ratio 42 (6-26); Blood Urea Nitrogen 13 mg/dL (8-23); Calcium 8.1 mg/dL (8.6-10.3); Carbon Dioxide 22 mEq/L (23-29); Chloride 102 mEq/L (98-107); Glucose 122 mg/dL (70-105); Magnesium 1.8 mg/dL (1.6-2.6); Osmolality,Calculated 273 (280-300); Phosphorous 3.9 mg/dL (2.7-4.5); Potassium 4.2 mEq/L (3.5-5.1); Sodium 131 mEq/L (136-145); eGFR For Non-African Americans > 60 (> 60)
[2018-05-08] MEDS: Metoclopramide 10 MG/2 ML VIAL IVP SCH ×4 (06:25→23:46)
[2018-05-08] MEDS: *HR* Heparin 5,000 UNIT/ML VIAL SQ SCH ×2 (06:25→18:02)
[2018-05-08] MEDS: Metoprolol XL (24 HR) Succ 50 MG TAB.ER.24H PO SCH (08:53)
[2018-05-08] MEDS: Levofloxacin 750 MG/150 ML 750 MG/150 ML BAG IVPB SCH (08:53)
[2018-05-08] MEDS: Loratadine 10 MG TABLET PO SCH (08:53)
[2018-05-08] MEDS: MetroNIDAZOLE 500 MG/100 ML 500 MG/100 ML BAG IVPB SCH ×3 (08:53→23:46)
--- NOTE | 2018-05-08 10:11 | General Surgery Progress Note ---
Date of Encounter: 05/08/18 Time of Encounter: 09:00 - Assessment and Plan (1) Umbilical hernia Current Visit: Yes Status: Chronic Date of procedure: 04/28/18 Pre-op diagnosis: Recurrent Incisional hernia Post-op diagnosis: same Procedure: Robotic Recurrent Incisional hernia repair mesh Surgeon: Dr. Bess 05/08/2018: Brief clinical summary POD#10 as above. He has had a prolonged postoperative ileus. NG was removed on 05/02/2018 after patient had small BMS (following 2 doses of methylnatrexone and continued reglan). He continued low-grade fevers (99.6), but on 05/05/2108 he spike a fever of 101.2. CT of chest, abdomen, and pelvis were obtained which noted significant dilation of mostly small bowel loops with a transition point in the pelvis, ventral hernia with fluid and a small amount of air suggestive of inflammation (reviewed with attending surgeon who stated there was no evidence of strangulated hernia but more consistent with postoperative seroma and no indication to aspirate the periiumbilical swelling), no evidence of abscess, bilateral pleural effusions and consolidated changes, two focal areas of wall thickening in the bladder noted. He was recommended to have his NG replaced at this time, but he he refused. Of note on 05/05/2018, the patient did admit to being untruthful about his symptoms because he did not want the NG tube replaced and Of note, he did have an increase in fever and WBC on 05/04- coinciding with a 24 hour history or IV ATBX completed per original order. These were restarted and patient's WBC has improved (no results available for 05/08/2018). He is currently on Levo/ Flagyl Throughout the weekend he has had sips of ice chips, reports a bowel movement only after enema administration, and states he "might have passed gas through the night." He reports that his abdomen feels full, distended, achy, nauseated, but without vomiting. The area of erythema at the periumbilical area remains consistent with seroma. There is no evidence of abscess. An acute abdominal series was obtained on 05/08/2018 which noted no change in dilation of small bowel loops. He again refuses placement of an NG tube. I did review with this patient the concern for an unresolved ileus versus obstruction and that placement of an NG tube would significantly relieve his symptoms. I further reviewed the possibility of an urgent surgical intervention if he did not adhere to surgical recommendations and there was progression of his obstruction. Reviewed with Dr. Bess who agrees that patient needs NG tube placed. I did inform this patient of the recommendations per Dr. Bess, but the patient refuses at this point, stating, "maybe after I talk to him I will consider." Again, further reviewed with patient that Dr. Bess will not be available until later today because he is involved in patient care, and that surgery does not recommend waiting to place NG; however, will respect patient's decisions although we do not feel it is in his best interest. Plan: continue supportive care and discomfort management while awaiting return of bowel function -Strongly recommend the placement of an NG for decompression -PRN sublingual oxycodone for breakthrough pain (recommend attempt to limit narcotics given continued postoperative ileus) -continue Reglan, consider repeat methylnaltrexone ambulate at least TID and out of bed to chair at least 3 times daily Continue PICC and TPN for protein calorie malnutrition Aggressive pulmonary toileting, AccuPap, out of bed to chair at least TID, ambulate TID, further management per primary team Consult PT/OT for mobilization Qualifiers: Obstruction and gangrene presence: with obstruction but without gangrene Qualified Code(s): K42.0 - Umbilical hernia with obstruction, without gangrene (2) Ileus, postoperative Current Visit: Yes Status: Acute AAS 05/02/2018 and 05/08/2018 with continued ileus vs SBO. See a/p above for further detail (reglan, relistor, NG) (3) COPD (chronic obstructive pulmonary disease) Current Visit: Yes Status: Chronic Per primary team Qualifiers: COPD type: chronic bronchitis Chronic bronchitis type: unspecified Qualified Code(s): J42 - Unspecified chronic bronchitis (4) Fever, unknown origin Current Visit: Yes Status: Acute Currently a-febrile (5) Electrolyte imbalance Current Visit: Yes Status: Acute WNL Continue to follow (6) Protein calorie malnutrition Current Visit: Yes Status: Acute see a/p above Qualifiers: Protein-calorie malnutrition severity: mild Qualified Code(s): E44.1 - Mild protein-calorie malnutrition (7) Tachycardia Current Visit: Yes Status: Acute Unclear etiology will obtain EKG and notify primary team Subjective Narrative: Misha continues to state he is "feeling better," although he denies bowel movement other than after enema. He states he might have passed gas overnight. He denies nausea or vomiting. He reports his abdomen is sore, swollen, and feels full. Objective Vital Signs - Last 8 Hours Temp Pulse Resp BP Pulse Ox 05/08/18 07:31 16 95 05/08/18 06:51 98.3 F 104 15 141/71 94 05/08/18 04:42 98.2 F 120 14 162/88 94 Intake and Output 05/07/18 05/08/18 05/08/18 23:59 07:59 15:59 Intake Total 100 / 100 350 / 350 Output Total 600 / 600 600 / 600 Balance -500 / -500 -250 / -250 Intake: IV Fluids 100 / 100 350 / 350 Intralipid 20% 250 ML @ 21 mls/ 250 / 250 hr IVPB DAILY@1700 [facility] Rx#: [id number] Flagyl Premix 500 MG/100 ML 500 100 / 100 100 / 100 mg In 100 ml @ 100 mls/hr IVPB Q8HR [facility] Rx#:[id number] Oral 0 / 0 0 / 0 Output: Urine 600 / 600 600 / 600 Other: Meal NPO DINNER # Voids 2 # Bowel Movements 0 0 Weight 75.4 kg Blood Glucose* 136 126 VITAL SIGNS: Reviewed. See [facility] GENERAL: In no apparent distress, but appears uncomfortable. HEENT: Normocephalic, atraumatic, pupils are equal and reactive, edentulous, oropharynx is pink and moist, there is no neck adenopathy or JVD noted. CHEST/RESPIRATORY: The thorax is free from signs of trauma. Lung sounds: decreased, course breath sounds CARDIAC: tachycardic ( rate ranging from 69-124 over the last 48 hours) 48 hours ) rate and rhythm. VASCULAR: No Edema. 2+ peripheral pulses. ABDOMEN: firm, distended, tympanic, absent bowel sounds INCISION: Surgical incision is clean, dry, and intact. Lisette-umbilical erythema remains but is slightly improved. Edema is difficult to assess given the overall distention of the abdomen. Most likely consistant with seroma MUSCULOSKELETAL: Good range of motion of all major joints. Extremities without clubbing, cyanosis or edema. NEUROLOGIC EXAM: Alert and oriented x 3. Speech normal. Follows commands. PSYCHIATRIC: Mood normal. He admits to being untruthful about the way he is feeling because he does not want NG replaced. SKIN: No rash or lesions. - Labs 05/07/18 04:45 05/08/18 05:20 Diabetes panel 05/08/18 Range/Units 05:20 Sodium 131 L (136-145) mEq/L Potassium 4.2 (3.5-5.1) mEq/L Chloride 102 (98-107) mEq/L Carbon Dioxide 22 L (23-29) mEq/L BUN 13 (8-23) mg/dL Creatinine 0.31 L (0.70-1.30) mg/dL Glucose 122 H (70-105) mg/dL Calcium 8.1 L (8.6-10.3) mg/dL Calcium panel 05/08/18 Range/Units 05:20 Calcium 8.1 L (8.6-10.3) mg/dL Phosphorus 3.9 (2.7-4.5) mg/dL Pituitary panel 05/08/18 Range/Units 05:20 Sodium 131 L (136-145) mEq/L Potassium 4.2 (3.5-5.1) mEq/L Chloride 102 (98-107) mEq/L Carbon Dioxide 22 L (23-29) mEq/L BUN 13 (8-23) mg/dL Creatinine 0.31 L (0.70-1.30) mg/dL Glucose 122 H (70-105) mg/dL Calcium 8.1 L (8.6-10.3) mg/dL Adrenal panel 05/08/18 Range/Units 05:20 Sodium 131 L (136-145) mEq/L Potassium 4.2 (3.5-5.1) mEq/L Chloride 102 (98-107) mEq/L Carbon Dioxide 22 L (23-29) mEq/L BUN 13 (8-23) mg/dL Creatinine 0.31 L (0.70-1.30) mg/dL Glucose 122 H (70-105) mg/dL Calcium 8.1 L (8.6-10.3) mg/dL - VTE Documentation of Mechanical Device: Intermittent pneumatic compression device Consult Discharge Plan - Plan Referrals: Breanna Ocampo, LOCKST[employer] HEMMER [Advanced Practice Nurse] - 05/15/18 1:30 pm
[2018-05-08 10:29] LABS: Basophils % 0.2 %; Eosinophils # 0.3 K/mcL (0.0-0.6); Eosinophils % 2.2 %; Immature Granulocytes % 1.7 % (0-4); Lymphocytes % 7.2 %; Mean Corpuscular HGB Conc 34.6 g/dL (31.6-35.5); Mean Corpuscular Hemoglobin 30.9 pg (28.0-33.3); Mean Corpuscular Volume 89.3 fL (83.0-100.0); Mean Platelet Volume 10.3 fL (9.4-12.4); Monocytes # 1.6 K/mcL (0.0-1.3); Neutrophils # 10.3 K/mcL (1.6-8.9); Platelet Count 376 K/mcL (140-400); Red Blood Count 2.91 M/mcL (4.19-5.50); Red Cell Distribution Width 15.1 % (11.5-14.5); Segmented Neutrophils % 76.7 %
[2018-05-08] MEDS ORDERED: *HR* LORazepam 2 MG/ML VIAL IVP STA (14:10)
[2018-05-08] MEDS ORDERED: Lidocaine Jelly 11 ml Syringe TP ONE (14:11)
[2018-05-08] MEDS ORDERED: *HR* Metoprolol 5 MG/5 ML VIAL IVP ONE (14:17)
--- NOTE | 2018-05-08 15:09 | Oncology Inp Progress Note ---
Date of Encounter: 05/08/18 Time of Encounter: 12:00 (1) Lung nodule Current Visit: Yes Status: Acute Assessment and plan: CT imaging reveals a spiculated right lung nodule, borderline hilar lymphadenopathy, right lung nodule suspicious for malignancy rather than infection and indeterminate left adrenal nodule. Patient quit smoking about 8-9 months ago, smoked upwards of 2 PPD since the age of 10. Denies hemoptysis, appetite changes, unintended weight loss, respiratory symptoms, fevers, chills or night sweats. Mr. Freed is POD #10 following Robotic Recurrent Incisional hernia repair mesh and continues to have a prolonged postoperative ileus. He is working with the surgical team and likely planning for NG tube placement today. His CT findings were again discussed at today's visit. Need for PET imaging and potential biopsy was again discussed with patient today as his findings are radiographically concerning for malignancy. He was given a print out with a follow up appointment with Dr. Richard in about 2 weeks time. Oncology will otherwise plan to sign off at this time, please feel free to contact for any further questions or concerns should anything arise in the meantime. Oncology: Subj Interval history: Mr. Freed reports increased distention and abdominal bloating. He is working with the surgical team for a prolonged post-operative ileus, he was encouraged to have a NG placement today. He denies SOB or chest pain, denies weight loss or appetite changes prior to his surgery. Denies family history of cancer. He quit smoking about 8 months ago, prior to this smoked up to 2 PPD since the age of 10. We discussed his chest imaging concerning for malignancy. - Constitutional Vitals: Vital Signs Temp Pulse Resp BP Pulse Ox 05/08/18 11:08 18 97 05/08/18 10:50 98.6 F 108 18 144/81 97 05/08/18 07:31 16 95 05/08/18 06:51 98.3 F 104 15 141/71 94 05/08/18 04:42 98.2 F 120 14 162/88 94 05/07/18 23:55 20 95 05/07/18 20:28 20 95 05/07/18 19:27 98.3 F 96 15 151/71 96 05/07/18 16:10 98.6 F 118 18 144/82 96 05/07/18 15:19 16 97 Intake and Output 05/07/18 05/08/18 05/08/18 23:59 07:59 15:59 Intake Total 100 / 100 350 / 350 100 / 100 Output Total 600 / 600 600 / 600 425 / 425 Balance -500 / -500 -250 / -250 -325 / -325 Intake: IV Fluids 100 / 100 350 / 350 100 / 100 Intralipid 20% 250 ML @ 21 mls/ 250 / 250 hr IVPB DAILY@1700 KATIE Rx#: [id number] Flagyl Premix 500 MG/100 ML 500 100 / 100 100 / 100 100 / 100 mg In 100 ml @ 100 mls/hr IVPB Q8HR KATIE Rx#:[id number] Oral 0 / 0 0 / 0 0 / 0 Output: Urine 600 / 600 600 / 600 425 / 425 Other: Meal NPO DINNER # Voids 2 # Bowel Movements 0 0 Weight 75.4 kg Blood Glucose* 136 126 136 General appearance: cooperative, no acute distress, no febrile - Head Head exam: Present: atraumatic - ENT ENT exam: Present: mucous membranes moist - Respiratory Respiratory exam: Present: decreased breath sounds, CTAB. Absent: respiratory distress - Cardiovascular Cardiovascular exam: Present: RRR, +S1, +S2 - GI/Abdominal GI/Abdominal exam: Present: distended, firm, hypoactive bowel sounds, tenderness - Extremities Exam Extremities exam: Absent: calf tenderness - Neurological Exam Neurological exam: Present: alert, oriented X3, no focal deficits, strengths equal and symetr throughout - Psychiatric Psychiatric exam: Present: normal affect, normal mood - Skin Skin exam: Present: dry, intact, normal color, warm Oncology: Obj Data - Labs CBC & Chem 7: 05/08/18 10:16 05/08/18 05:20 - Impressions Impressions Abdomen X-Ray 05/08/18 08:56 IMPRESSION: No significant interval change in extent of dilated, air-filled loops of small bowel, which may be secondary to a distal obstruction as previously suggested. D/ / Dudley Day MD / Dudley Day MD Interpreting Provider: Dudley Day MD - ABG Interpretation ABG results: PT/INR, D-dimer PT 13.2 Seconds (9.4-12.1) H 04/26/18 13:34 Consult Discharge Plan - Plan Referrals: Breanna Ocampo CNP [Advanced Practice Nurse] - 05/15/18 1:30 pm
--- NOTE | 2018-05-08 15:54 | Internal Med Progress Note ---
<Keeley Rivera P - Last Filed: 05/08/18 18:10> Date of Encounter: 05/08/18 Time of Encounter: 11:00 - Assessment and plan (1) Pneumonia Current Visit: Yes Status: Suspected Assessment and plan: Suspected pneumonia due to atelectasis , is on IV antibiotics and supplemental Oxygen Qualifiers: Pneumonia type: due to unspecified organism Laterality: right Lung location: lower lobe of lung Qualified Code(s): J18.1 - Lobar pneumonia, unspecified organism (2) Small bowel obstruction Current Visit: Yes Status: Acute Assessment and plan: Small bowel obstruction with transition point at Umbilical hernia Robotic incisional hernia repair done on 04/28 He is on metronidazone and levofloxacin (3) COPD (chronic obstructive pulmonary disease) Current Visit: Yes Status: Chronic Assessment and plan: He is a chronic case of COPD , has mild productive cough , but better than before . He denies SOB or dyspnoea Qualifiers: COPD type: chronic bronchitis Chronic bronchitis type: unspecified Qualified Code(s): J42 - Unspecified chronic bronchitis (4) Lung nodule Current Visit: Yes Status: Acute Assessment and plan: He has lung nodule 1.2 x 1 cm , Oncology follow up done and will review with PET CT and possible biopsy - Subjective Interval history: This patient is admitted for pneumonia and high grade small bowel obstruction transition point in Umbilical hernia He has done Robotic incisional hernia repair on 04/28 . Today he has distended abdomen and pain in whole abdomen . He complains redness and pain in umbilical area. He has mild cough with whitish productive sputum. He denies any dyspnoea , fever , sweating He is on Oxygen therapy - Constitutional Vitals: Temp Pulse Resp BP Pulse Ox 98.6 F 108 18 144/81 97 05/08/18 10:50 05/08/18 10:50 05/08/18 11:08 05/08/18 10:50 05/08/18 11:08 General appearance: Present: A&O X 2 (issues with memory occasionally, likely due to acute illness), answers questions appropriately - Neck Additional comments: Grossly Normal - Respiratory Respiratory exam: Present: rales, wheezes Additional comments: scattered rales and wheezes noted - Cardiovascular Additional comments: s1 s2 normal , no murmur , no rub and other added sounds - GI/Abdominal GI/Abdominal exam: Present: distended, normal bowel sounds, no peritoneal signs. Absent: guarding Additional comments: swelling noted over the umbilicus, redness present over the umbilicus Internal Medicine: Result - Labs CBC & Chem 7: 05/08/18 10:16 05/08/18 05:20 Labs: Short CBC 05/08/18 Range/Units 10:16 WBC 13.4 H (4.3-11.1) K/mcL Hgb 9.0 L (12.9-16.9) g/dL Hct 26.0 L (37.5-50.1) % Plt Count 376 (140-400) K/mcL Neutrophils # 10.3 H (1.6-8.9) K/mcL BMP 05/08/18 05:20 Sodium 131 L Potassium 4.2 Chloride 102 Carbon Dioxide 22 L BUN 13 Creatinine 0.31 L Glucose 122 H Calcium 8.1 L - ABG Interpretation ABG results: PT/INR, D-dimer PT 13.2 Seconds (9.4-12.1) H 04/26/18 13:34 - Impressions Impressions Abdomen X-Ray 05/08/18 08:56 IMPRESSION: No significant interval change in extent of dilated, air-filled loops of small bowel, which may be secondary to a distal obstruction as previously suggested. D/ / Dudley Day MD / Dudley Day MD Interpreting Provider: Dudley Day MD - VTE Documentation of Mechanical Device: Intermittent pneumatic compression device Consult Discharge Plan - Plan Referrals: Breanna Ocampo OPERATOR [facility] [Advanced Practice Nurse] - 05/15/18 1:30 pm <Lise aDley - Last Filed: 05/08/18 23:08> Date of Encounter: 05/08/18 - Assessment and plan (1) Lactic acidosis Current Visit: Yes Status: Resolved (2) Abnormal EKG Current Visit: Yes Status: Acute (3) DVT prophylaxis Current Visit: Yes Status: Acute (4) NUNU (acute kidney injury) Current Visit: Yes Status: Resolved (5) Umbilical hernia Current Visit: Yes Status: Chronic Qualifiers: Obstruction and gangrene presence: with obstruction but without gangrene Qualified Code(s): K42.0 - Umbilical hernia with obstruction, without gangrene (6) COPD (chronic obstructive pulmonary disease) Current Visit: Yes Status: Chronic Qualifiers: COPD type: chronic bronchitis Chronic bronchitis type: unspecified Qualified Code(s): J42 - Unspecified chronic bronchitis (7) Hyponatremia Current Visit: No Status: Resolved (8) SIRS (systemic inflammatory response syndrome) Current Visit: Yes Status: Resolved (9) Small bowel obstruction Current Visit: Yes Status: Acute - Constitutional Vitals: Temp Pulse Resp BP Pulse Ox 98.2 F 111 17 154/78 91 05/08/18 19:36 05/08/18 19:36 05/08/18 20:24 05/08/18 19:36 05/08/18 20:24 Internal Medicine: Result - Labs CBC & Chem 7: 05/08/18 10:16 05/08/18 05:20 Labs: Short CBC 05/08/18 Range/Units 10:16 WBC 13.4 H (4.3-11.1) K/mcL Hgb 9.0 L (12.9-16.9) g/dL Hct 26.0 L (37.5-50.1) % Plt Count 376 (140-400) K/mcL Neutrophils # 10.3 H (1.6-8.9) K/mcL BMP 05/08/18 05:20 Sodium 131 L Potassium 4.2 Chloride 102 Carbon Dioxide 22 L BUN 13 Creatinine 0.31 L Glucose 122 H Calcium 8.1 L - ABG Interpretation ABG results: PT/INR, D-dimer PT 13.2 Seconds (9.4-12.1) H 04/26/18 13:34 - Impressions Impressions Abdomen X-Ray 05/08/18 08:56 IMPRESSION: No significant interval change in extent of dilated, air-filled loops of small bowel, which may be secondary to a distal obstruction as previously suggested. D/ / Dudley Day MD / Dudley Day MD Interpreting Provider: Dudley Day MD X-Ray 05/08/18 15:29 IMPRESSION: NG tube tip projects over the fundus of the stomach. Unchanged findings suspicious for distal obstruction. Slightly increased bilateral pleural effusions. D/ / Tru Manning MD / Tru Manning MD Interpreting Provider: Tru Manning MD - Attending Attestation I examined this patient and my medical decision-making was reviewed with the Resident Physician. I agree with the documented findings, disposition and treatment plan as described except to the extent set forth below. Patient having complaints of abdominal discomfort along with distension. He has refused re-inserting NG tube for past several days despite worsening symptoms. Denies fevers/chills. Admits to nausea. states passing flatus. Exam shows patient in mild distress with a soft, distended, tender abdomen with no rebound rigidity. Bowel sounds appreciated. Vitals reviewed. Patient tachycardic HR 100-110s. EKG reviewed, no ST wave, changes. T wave inversions from EKG 10 days ago are no longer present. He denies chest pain. Some SOB associated with abdominal discomfort. Labs reviewed. 1. SBO 2. Post-op ileus - worsening as patient refused re-inserting NG tube for several days. 3. S/P ventral hernia mesh insertion 4. NUNU 5. Tachycardia 6. Suspected right lower lob pneumonia. 7. Right lung nodule 8. Hypertension - Post-op management of SBO and ileus include NG tube insertion. This AM he is willing to try to have NGT re inserted. Will plan for this ERIN. - Monitor tachycardia after abdomen decompression, also treatment of pneumonia, patient may be sepsis risk. EKG findings as above. - Started Levaquin, but has not received more than one dose to date. - Right lung nodule to be followed as outpatient with Oncology.
[2018-05-08] MEDS ORDERED: Saliva Stimulant 100ml BOTTLE PO PRN (16:12)
[2018-05-08] MEDS ORDERED: Chloraseptic Spray 177 ML BOTTLE MM PRN (16:12)
[2018-05-08] MEDS ORDERED: Clinimix E 5%-15% SOLUTION 2,000 ML with MVI, adult with vitamin K 10 ML, Magnesium S... IVC SCH (17:00)
--- NOTE | 2018-05-08 17:09 | Electrocardiograph Report ---
[address] [address] Test Date: 2018-05-08 Pat Name: Misha Freed Department: 115 Room: 3A44 Gender: M Yarn Man: SONAL : 1950 Requested By: Theresa Arriaza Order Number: [id number] Reading MD: Kim Phillips Measurements Intervals [place] Rate: 112 P: 60 IA: 145 QRS: 52 QRSD: 98 T: 89 QT: 328 QTc: 394 Interpretive Statements SINUS TACHYCARDIA Electronically Signed On 05-08-2018 17:08:06 EDT by Kim Phillips
--- NOTE | 2018-05-08 17:10 | Electrocardiograph Report ---
[address] [place], [place] [address] Test Date: 2018-05-08 Pat Name: Misha Freed Department: 115 Room: 3A44 Gender: M Senior Administrative Associate: SONAL : 1950 Requested By: Diana Valverde Order Number: [id number] Reading MD: Kim Phillips Measurements Intervals [place] Rate: 103 P: [place]: 0 QRS: 49 QRSD: 99 T: 81 QT: 357 QTc: 417 Interpretive Statements SINUS TACHYCARDIA PREMATURE VENTRICULAR CONTRACTIONS MINIMAL ST DEPRESSION ABNORMAL RHYTHM ECG Electronically Signed On 05-08-2018 17:09:10 EDT by Kim Phillips
[2018-05-08] MEDS: Bisacodyl 10 MG RECTAL SUPPOSITORY RC SCH (20:09)
[2018-05-09 03:41] LABS: Basophils # 0.1 K/mcL (0.0-0.2); Basophils % 0.3 %; Eosinophils # 0.3 K/mcL (0.0-0.6); Eosinophils % 1.7 %; Hematocrit 26.9 % (37.5-50.1); Hemoglobin 9.4 g/dL (12.9-16.9); Immature Granulocytes % 1.4 % (0-4); Lymphocytes # 1.1 K/mcL (0.6-4.6); Lymphocytes % 6.9 %; Mean Corpuscular HGB Conc 34.9 g/dL (31.6-35.5); Mean Corpuscular Volume 88.8 fL (83.0-100.0); Mean Platelet Volume 10.1 fL (9.4-12.4); Monocytes # 1.9 K/mcL (0.0-1.3); Monocytes % 11.5 %; Neutrophils # 12.6 K/mcL (1.6-8.9); Platelet Count 447 K/mcL (140-400); Red Blood Count 3.03 M/mcL (4.19-5.50); Red Cell Distribution Width 14.9 % (11.5-14.5); Segmented Neutrophils % 78.2 %
[2018-05-09 04:00] LABS: BUN/Creatinine Ratio 44 (6-26); Blood Urea Nitrogen 15 mg/dL (8-23); Calcium 7.9 mg/dL (8.6-10.3); Carbon Dioxide 20 mEq/L (23-29); Chloride 101 mEq/L (98-107); Glucose 98 mg/dL (70-105); Magnesium 1.8 mg/dL (1.6-2.6); Osmolality,Calculated 273 (280-300); Phosphorous 4.2 mg/dL (2.7-4.5); Sodium 131 mEq/L (136-145); eGFR For Non-African Americans > 60 (> 60)
[2018-05-09] MEDS: Ipratropium/Albuterol Neb 3 ML IH SCH ×6 (04:08→23:55)
[2018-05-09] MEDS: Metoclopramide 10 MG/2 ML VIAL IVP SCH ×3 (06:16→17:28)
[2018-05-09] MEDS: *HR* Heparin 5,000 UNIT/ML VIAL SQ SCH ×2 (06:17→17:29)
[2018-05-09] MEDS: Pantoprazole 40 MG VIAL IVP SCH (06:17)
[2018-05-09] MEDS ORDERED: Ondansetron 4 MG/2 ML VIAL IVP STA (07:55)
[2018-05-09] MEDS ORDERED: Ondansetron 4 MG/2 ML VIAL IVP PRN (07:55)
--- NOTE | 2018-05-09 08:13 | General Surgery Progress Note ---
Date of Encounter: 05/09/18 Time of Encounter: 07:42 - Assessment and Plan (1) Umbilical hernia Current Visit: Yes Status: Chronic Date of procedure: 04/28/18 Pre-op diagnosis: Recurrent Incisional hernia Post-op diagnosis: same Procedure: Robotic Recurrent Incisional hernia repair mesh Surgeon: Dr. Bess POD#[id number] as above. 05/08/2018: Brief clinical summary He has had a prolonged postoperative ileus. NG was removed on 05/02/2018 after patient had small BMS (following 2 doses of methylnatrexone and continued reglan ). He continued low-grade fevers (99.6), but on 05/05/2108 he spike a fever of 101.2. CT of chest, abdomen, and pelvis were obtained which noted significant dilation of mostly small bowel loops with a transition point in the pelvis, ventral hernia with fluid and a small amount of air suggestive of inflammation ( reviewed with attending surgeon who stated there was no evidence of strangulated hernia but more consistent with postoperative seroma and no indication to aspirate the periiumbilical swelling), no evidence of abscess, bilateral pleural effusions and consolidated changes, two focal areas of wall thickening in the bladder noted. He was recommended to have his NG replaced at this time, but he he refused. Of note on 05/05/2018, the patient did admit to being untruthful about his symptoms because he did not want the NG tube replaced and Of note, he did have an increase in fever and WBC on 05/04- coinciding with a 24 hour history or IV ATBX completed per original order. These were restarted and patient's WBC has improved (no results available for 05/08/2018). He is currently on Levo/ Flagyl Throughout the weekend he has had sips of ice chips, reports a bowel movement only after enema administration, and states he "might have passed gas through the night." He reports that his abdomen feels full, distended, achy, nauseated, but without vomiting. The area of erythema at the periumbilical area remains consistent with seroma. There is no evidence of abscess. An acute abdominal series was obtained on 05/08/2018 which noted no change in dilation of small bowel loops. refused NG placement until later in the day after two more physicians recommended NG placement. 250 ml clear fluids and air returned. 05/09/2018: NG placed 05/08/18. 750 ml output per NG. No improvement in abd distention, nausea, tympany, and remains without BS. No flatus, no BM. Weight noted (16.2 lbs WG since admission), unsure of accuracy, will check standing scale weight. +5.7L fluid balance, will check albumin, BNP, and CXR. Tachycardia resolved with BBs. WBC increased 13.4>>16.2 and without bandemia. hgb stable 9.4 and no overt signs of bleeding. His abd exam is nonperitoneal. He is tender to palpation at the umbilicus. The erythema remains inside the margins drawn; suspect reaction to seroma, but no clear indication to aspirate remains. There is no drainage or cellulits noted. Rectal temp 99.6 Blood cultures 04/26 and no growth BC 05/06 pending Remains on Levo/Flagyl (previously cipro/flagyl) Echo 04/27/2018 with EF 55%, mild diastolic dysfunction, BBB Oncology recommends outpatient follow-up for suspected right lung CA. Plan: continue supportive care and discomfort management while awaiting return of bowel function -Continue NG to LIWS -PRN sublingual oxycodone for breakthrough pain (recommend attempt to limit narcotics given continued postoperative ileus), scheduled Ofirmev and toradol. -continue Reglan, consider repeat methylnaltrexone pending imaging today ( repeat CT vs SBFT-cill collaborate with attending surgeon). -PRN antiemetics -biotene and chloraseptic for comfort CXR to check pleural effusions KUB Serial abd exams Rectal temp Standing scale weight Check albumin, prealbumin, and BNP Recommend consider diuresis per primary team, consider albumin ambulate at least TID and out of bed to chair at least 3 times daily w/PT/OT Continue PICC and TPN for protein calorie malnutrition Aggressive pulmonary toileting, AccuPap, out of bed to chair at least TID, ambulate TID, further management per primary team Consult PT/OT for mobilization Qualifiers: Obstruction and gangrene presence: with obstruction but without gangrene Qualified Code(s): K42.0 - Umbilical hernia with obstruction, without gangrene (2) Ileus, postoperative Current Visit: Yes Status: Acute See above (3) COPD (chronic obstructive pulmonary disease) Current Visit: Yes Status: Chronic Per primary team Qualifiers: COPD type: chronic bronchitis Chronic bronchitis type: unspecified Qualified Code(s): J42 - Unspecified chronic bronchitis (4) Fever, unknown origin Current Visit: Yes Status: Acute REctal temp 99.6 (5) Electrolyte imbalance Current Visit: Yes Status: Acute WNL Continue to follow (6) Protein calorie malnutrition Current Visit: Yes Status: Acute see a/p above Check albumin and prealbumin Albumin 2.5 Qualifiers: Protein-calorie malnutrition severity: severe Qualified Code(s): E43 - Unspecified severe protein-calorie malnutrition (7) Tachycardia Current Visit: Yes Status: Acute Per primary team. Switched metoprolol to IV Q6H. Subjective Narrative: Misha states his abdomen doesn't feel any better. He denies flatus, BM, or vomiting. He endorses nausea, abdominal discomfort that is "all over but hurts more at the belly button when you push." Denies fever, chills, or CP. Reports shortness of breath with activity and feeling weak. Objective Vital Signs - Last 8 Hours Temp Pulse Resp BP Pulse Ox 05/09/18 07:14 97.8 F 62 16 140/72 91 05/09/18 04:09 17 91 05/09/18 04:00 98.8 F 126 14 118/71 91 Intake and Output 05/08/18 05/08/18 05/09/18 15:59 23:59 07:59 Intake Total 250 / 250 160 / 160 350 / 350 Output Total 675 / 675 400 / 400 750 / 750 Balance -425 / -425 -240 / -240 -400 / -400 Intake: IV Fluids 250 / 250 100 / 100 350 / 350 Intralipid 20% 250 ML @ 21 mls/ 250 / 250 hr IVPB DAILY@1700 [facility] Rx#: [id number] Levaquin Premix 750mg/150 mL 150 / 150 750 mg In 150 ml @ 100 mls/hr IVPB DAILY [facility] Rx#:[id number] Flagyl Premix 500 MG/100 ML 500 100 / 100 100 / 100 100 / 100 mg In 100 ml @ 100 mls/hr IVPB Q8HR [facility] Rx#:[id number] Oral 0 / 0 60 / 60 0 / 0 Output: Urine 675 / 675 400 / 400 0 / 0 Gastric Drainage 750 / 750 Other: Meal NPO Blood Glucose* 136 124 135 VITAL SIGNS: Reviewed. See [employer] GENERAL: In no apparent distress, but appears uncomfortable. HEENT: Normocephalic, atraumatic, pupils are equal and reactive, edentulous, oropharynx is pink and moist, there is no neck adenopathy. There is JVD noted. CHEST/RESPIRATORY: The thorax is free from signs of trauma. Lung sounds: decreased, course breath sounds, crackles in the bases CARDIAC: RRR, murmur appreciated VASCULAR: No Edema. 2+ peripheral pulses. ABDOMEN: firm, distended, tympanic, absent bowel sounds INCISION: Surgical incision is clean, dry, and intact. Lisette-umbilical erythema remains but is slightly improved. Edema is difficult to assess given the overall distention of the abdomen. Most likely consistant with seroma MUSCULOSKELETAL: Good range of motion of all major joints. Extremities without clubbing, cyanosis or edema. NEUROLOGIC EXAM: Alert and oriented x 3. Speech normal. Follows commands. PSYCHIATRIC: Mood normal. He admits to being untruthful about the way he is feeling because he does not want NG replaced. SKIN: No rash or lesions. - Labs 05/09/18 03:25 05/09/18 03:25 Diabetes panel 05/09/18 Range/Units 03:25 Sodium 131 L (136-145) mEq/L Potassium 4.0 (3.5-5.1) mEq/L Chloride 101 (98-107) mEq/L Carbon Dioxide 20 L (23-29) mEq/L BUN 15 (8-23) mg/dL Creatinine 0.34 L (0.70-1.30) mg/dL Glucose 98 (70-105) mg/dL Calcium 7.9 L (8.6-10.3) mg/dL Calcium panel 05/09/18 Range/Units 03:25 Calcium 7.9 L (8.6-10.3) mg/dL Phosphorus 4.2 (2.7-4.5) mg/dL Pituitary panel 05/09/18 Range/Units 03:25 Sodium 131 L (136-145) mEq/L Potassium 4.0 (3.5-5.1) mEq/L Chloride 101 (98-107) mEq/L Carbon Dioxide 20 L (23-29) mEq/L BUN 15 (8-23) mg/dL Creatinine 0.34 L (0.70-1.30) mg/dL Glucose 98 (70-105) mg/dL Calcium 7.9 L (8.6-10.3) mg/dL Adrenal panel 05/09/18 Range/Units 03:25 Sodium 131 L (136-145) mEq/L Potassium 4.0 (3.5-5.1) mEq/L Chloride 101 (98-107) mEq/L Carbon Dioxide 20 L (23-29) mEq/L BUN 15 (8-23) mg/dL Creatinine 0.34 L (0.70-1.30) mg/dL Glucose 98 (70-105) mg/dL Calcium 7.9 L (8.6-10.3) mg/dL - VTE Documentation of Mechanical Device: Intermittent pneumatic compression device Consult Discharge Plan - Plan Referrals: Breanna Ocampo CNP [Advanced Practice Nurse] - 05/15/18 1:30 pm
[2018-05-09 08:20] LABS: Albumin 2.5 g/dL (3.5-5.7)
[2018-05-09] MEDS ORDERED: Isovue-370 500 ML INFUS..BTL IV ONE ×2 (08:29→08:40)
[2018-05-09] MEDS: MetroNIDAZOLE 500 MG/100 ML 500 MG/100 ML BAG IVPB SCH ×2 (08:38→15:25)
[2018-05-09] MEDS: Levofloxacin 750 MG/150 ML 750 MG/150 ML BAG IVPB SCH (08:39)
[2018-05-09] MEDS: Ketorolac 15 MG/ML VIAL IVP SCH ×3 (08:40→17:28)
[2018-05-09] MEDS: Loratadine 10 MG TABLET PO SCH (08:41)
[2018-05-09] MEDS ORDERED: Furosemide 40 MG/4 ML VIAL IVP ONE (08:55)
[2018-05-09] MEDS ORDERED: *HR* Alteplase (Cathflo) 2 MG VIAL IVP ONE (09:34)
--- NOTE | 2018-05-09 10:06 | Internal Med Progress Note ---
<Keeley Rivera P - Last Filed: 05/09/18 18:08> Date of Encounter: 05/09/18 Time of Encounter: 10:00 - Assessment and plan (1) Pneumonia Current Visit: Yes Status: Suspected Assessment and plan: Suspected pneumonia due to atelectasis , is on IV antibiotics Levofloxacin and metronidazole and supplemental Oxygen He states that the cough is better and has SOB today . Recent Xray shows mild pulmonary oedema , blunting of costophrenic angles both side and minimal pleural effusion both side Qualifiers: Pneumonia type: due to unspecified organism Laterality: right Lung location: lower lobe of lung Qualified Code(s): J18.1 - Lobar pneumonia, unspecified organism (2) Small bowel obstruction Current Visit: Yes Status: Acute Assessment and plan: Small bowel obstruction with transition point at Umbilical hernia Robotic incisional hernia repair done on 04/28 He is on metronidazone and levofloxacin , NG tube decompression done yesterday , NG tube is in situ. Abdominal distension is less as compared to before and bowel sound sluggish.Continuous monitoring and NG tube decompression , NPO CT chest shows small bowel distention measures upto 5.5 cm and it has been worse over past 4-5 days . Surgical team has planned for surgery for suspected small bowel/ perforation. (3) COPD (chronic obstructive pulmonary disease) Current Visit: Yes Status: Chronic Assessment and plan: He is a chronic case of COPD , has mild productive cough , but cough is better than before . He is on Oxygen therapy and recently developed pneumonia and mild pulmonary edema that might be the reason for SOB Qualifiers: COPD type: chronic bronchitis Chronic bronchitis type: unspecified Qualified Code(s): J42 - Unspecified chronic bronchitis (4) Lung nodule Current Visit: Yes Status: Acute Assessment and plan: He has lung nodule 1.2 x 1 cm , Oncology follow up done and will review with PET CT and possible biopsy Today 's CT scan report shows 11 mm spiculated nodule lateral aspect of lung apex suspected malignacy - Subjective Interval history: This 67 years old male is admitted for pneumonia and high grade small bowel obstruction transition point in Umbilical hernia He has done Robotic incisional hernia repair on 04/28 . Recently he developed distention of abdomen and pain in whole abdomen . He complains redness and pain in umbilical area. He has mild cough with whitish productive sputum. He denies any dyspnoea , fever , sweating He is on Oxygen therapy . He thinks that it has been a little better today as compare to yesterday. He has been placed NG tube for gastric decompression. - Constitutional Vitals: Temp Pulse Resp BP Pulse Ox 99.6 F 62 20 140/72 91 05/09/18 07:57 05/09/18 07:14 05/09/18 07:36 05/09/18 07:14 05/09/18 07:36 General appearance: Present: cooperative, A&O X 2 (issues with memory occasionally, likely due to acute illness), no acute distress, answers questions appropriately - Respiratory Additional comments: Bilateral chest expansion is better, scattered rales noted on both side, minimal wheezes, no chest wall tenderness and no use of accessory muscle - Cardiovascular Additional comments: S1S2 normal rate and rhythm, no murmur and no added sound , no JVP distension - GI/Abdominal GI/Abdominal exam: Present: diminished bowel sounds, distended, no peritoneal signs Additional comments: Moderately distended, soft to firm, no rigidity and guarding , no organomegaly ,sluggish bowel sound, redness and swelling around the umbilicus, Internal Medicine: Result - Labs CBC & Chem 7: 05/09/18 03:25 05/09/18 03:25 Labs: Short CBC 05/08/18 05/09/18 Range/Units 10:16 03:25 WBC 13.4 H 16.2 H (4.3-11.1) K/mcL Hgb 9.0 L 9.4 L (12.9-16.9) g/dL Hct 26.0 L 26.9 L (37.5-50.1) % Plt Count 376 447 H (140-400) K/mcL Neutrophils # 10.3 H 12.6 H (1.6-8.9) K/mcL BMP 05/09/18 03:25 Sodium 131 L Potassium 4.0 Chloride 101 Carbon Dioxide 20 L BUN 15 Creatinine 0.34 L Glucose 98 Calcium 7.9 L Liver Function 05/09/18 Range/Units 03:25 Albumin 2.5 L (3.5-5.7) g/dL - ABG Interpretation ABG results: PT/INR, D-dimer PT 13.2 Seconds (9.4-12.1) H 04/26/18 13:34 - Impressions Impressions KUB X-Ray 05/08/18 15:29 IMPRESSION: NG tube tip projects over the fundus of the stomach. Unchanged findings suspicious for distal obstruction. Slightly increased bilateral pleural effusions. D/ / Tru Manning MD / Tru Manning MD Interpreting Provider: Tru Manning MD X-Ray 05/09/18 07:40 IMPRESSION: Stable or slightly worse diffuse small-bowel distention. Distal mechanical small bowel obstruction is favored. NG tube in good position. D/ / David Pruitt MD / David Pruitt MD Interpreting Provider: David Pruitt MD Chest X-Ray 05/09/18 07:41 IMPRESSION: NG and right arm PICC line in good position. New mild to moderate interstitial and some dependent alveolar pulmonary edema throughout both lungs with small bilateral pleural effusions. This could be secondary to volume overload or congestive heart failure. D/ / David Pruitt MD / David Pruitt MD Interpreting Provider: David Pruitt MD - VTE Documentation of Mechanical Device: Intermittent pneumatic compression device Consult Discharge Plan - Plan Referrals: Breanna Ocampo CNP [Advanced Practice Nurse] - 05/15/18 1:30 pm <Lise Daley - Last Filed: 05/09/18 22:30> Date of Encounter: 05/09/18 - Assessment and plan (1) Lactic acidosis Current Visit: Yes Status: Resolved (2) Abnormal EKG Current Visit: Yes Status: Acute (3) DVT prophylaxis Current Visit: Yes Status: Acute (4) NUNU (acute kidney injury) Current Visit: Yes Status: Resolved (5) Umbilical hernia Current Visit: Yes Status: Chronic Qualifiers: Obstruction and gangrene presence: with obstruction but without gangrene Qualified Code(s): K42.0 - Umbilical hernia with obstruction, without gangrene (6) COPD (chronic obstructive pulmonary disease) Current Visit: Yes Status: Chronic Qualifiers: COPD type: chronic bronchitis Chronic bronchitis type: unspecified Qualified Code(s): J42 - Unspecified chronic bronchitis (7) Hyponatremia Current Visit: No Status: Resolved (8) SIRS (systemic inflammatory response syndrome) Current Visit: Yes Status: Resolved (9) Small bowel obstruction Current Visit: Yes Status: Acute - Constitutional Vitals: Temp Pulse Resp BP Pulse Ox 98.6 F 100 18 146/75 96 05/09/18 19:45 05/09/18 19:45 05/09/18 20:15 05/09/18 19:45 05/09/18 20:15 Internal Medicine: Result - Labs CBC & Chem 7: 05/09/18 03:25 05/09/18 03:25 Labs: Short CBC 05/09/18 Range/Units 03:25 WBC 16.2 H (4.3-11.1) K/mcL Hgb 9.4 L (12.9-16.9) g/dL Hct 26.9 L (37.5-50.1) % Plt Count 447 H (140-400) K/mcL Neutrophils # 12.6 H (1.6-8.9) K/mcL BMP 05/09/18 03:25 Sodium 131 L Potassium 4.0 Chloride 101 Carbon Dioxide 20 L BUN 15 Creatinine 0.34 L Glucose 98 Calcium 7.9 L Liver Function 05/09/18 Range/Units 03:25 Albumin 2.5 L (3.5-5.7) g/dL - ABG Interpretation ABG results: PT/INR, D-dimer PT 13.2 Seconds (9.4-12.1) H 04/26/18 13:34 - Impressions Impressions KUB X-Ray 05/09/18 07:40 IMPRESSION: Stable or slightly worse diffuse small-bowel distention. Distal mechanical small bowel obstruction is favored. NG tube in good position. D/ / David Pruitt MD / David Pruitt MD Interpreting Provider: David Pruitt MD Chest X-Ray 05/09/18 07:41 IMPRESSION: NG and right arm PICC line in good position. New mild to moderate interstitial and some dependent alveolar pulmonary edema throughout both lungs with small bilateral pleural effusions. This could be secondary to volume overload or congestive heart failure. D/ / David Pruitt MD / David Pruitt MD Interpreting Provider: David Pruitt MD Abdomen/Pelvis CT 05/09/18 11:30 IMPRESSION: Slight worsening of diffuse small bowel distention with air-fluid levels over the past 4 days with the distal 6-8 cm of the terminal ileum normal in caliber. This appearance is highly suspicious for mechanical mid to distal small bowel obstruction. Transition point appears to be within the anterior aspect of the abdomen near a periumbilical hernia. Slight increased amount of free fluid and probable free air within the anterior peritoneal cavity just deep to the periumbilical hernia sac over the past 4 days. Although patient has had recent abdominal surgery within the past week, this increasing extraluminal air could be secondary to new bowel perforation. Critical results were called by Dr. David Pruitt MD to Dr. Bess On 05/09/2018 at 13:21. D/ / David Pruitt MD / David Pruitt MD Interpreting Provider: David Pruitt MD Chest CT 05/09/18 11:30 IMPRESSION: Worsening bilateral pleural effusions now moderate in size with worsening volume loss and consolidation both lower lungs over 4 days. In addition there is diffuse dependent interstitial lung markings throughout both lungs most compatible with interstitial pulmonary edema. This appearance may all be secondary to volume overload and/or moderate congestive heart failure. However, possibility of superimposed pneumonia in either lung base cannot be excluded. Persistent 11 mm spiculated nodule lateral aspect right lung apex suspicious for malignancy. Several mildly prominent mediastinal lymph nodes may be reactive lymph nodes due to possible bibasilar pneumonia but cannot exclude the possibility of malignant lymphadenopathy. D/ / 05/09/2018 12:36:12 David Pruitt MD / gemma Interpreting Provider: David Pruitt MD - Attending Attestation I examined this patient and my medical decision-making was reviewed with the Resident Physician. I agree with the documented findings, disposition and treatment plan as described except to the extent set forth below. Currently having worsening abdominal pain with slightly worsened distention. Bowel sounds still present. Abdominal tenderness present, patient looks in discomfort sitting upright. NG tube with documented 700 ml output. Overall patient high risk and CT abdomen/pelvis is ordered. He is high risk and a concern for sepsis. Will obtain stat blood cultures, LA, and broaden antibiotics. Surgery team aware of his acute changes, will follow recommendations.
[2018-05-09] MEDS: *HR* Metoprolol 5 MG/5 ML VIAL IVP SCH ×2 (11:20→17:28)
[2018-05-09] MEDS: Albumin 25% 25gram/100mL 25 GM/100 ML IV.SOLN IVC SCH ×2 (11:21→13:15)
[2018-05-09] MEDS: Acetaminophen IV 1,000 MG/100 ML INFUS..BTL IVPB SCH ×2 (12:09→17:29)
[2018-05-09] MEDS: Cefepime HCl 2,000 MG in Water for inj. (sterile) 20 ML 20 ML IVP SCH (15:24)
[2018-05-09] MEDS ORDERED: Methylnaltrexone 12 MG/0.6 ML SYRINGE SQ ONE (16:14)
[2018-05-09] MEDS ORDERED: Clinimix E 5%-15% SOLUTION 2,000 ML with MVI, adult with vitamin K 10 ML, Magnesium S... IVC SCH (17:00)
[2018-05-09] MEDS: 0.9 % Sodium Chloride 1,000 ML IVC SCH (21:25)
[2018-05-09] MEDS: Bisacodyl 10 MG RECTAL SUPPOSITORY RC SCH (21:29)
[2018-05-09] MEDS: OXYCODONE Oral CONC 10 MG/0.5 ML ORAL.SYG SL PRN (21:34)
--- NOTE | 2018-05-09 22:51 | Event Note ---
Date of Encounter: 05/09/18 Time of Encounter: 20:03 Alerted by patient's nurse VIPUL Rivas that patient had Acosta placed today and urine taken from Acosta catheter at 17:00 was dark yellow. Patient was taken from bed for standing weight and nurse reports patient's urine is now dark red. Nurse reports output 1750 since 10:00 this morning when they put the Acosta in. Patient is on TPN and lipids. Went to see pt. who was taking breathing tx in bed. Urine color is bright red w/o clots and minor sediment. Urology consult ordered and discussed with Dr. Isaacs with recommendation to begin IV fluids at 100 mL's per hour with careful monitoring. Dr. Isaacs to see patient in a.m. Patient to be monitored closely overnight for continued/worsening hematuria. Overnight provider to be notified of any worsening conditions.
[2018-05-10] MEDS: Ipratropium/Albuterol Neb 3 ML IH SCH ×5 (00:02→15:51)
[2018-05-10] MEDS: *HR* Metoprolol 5 MG/5 ML VIAL IVP SCH ×3 (00:48→18:00)
[2018-05-10] MEDS: Cefepime HCl 2,000 MG in Water for inj. (sterile) 20 ML 20 ML IVP SCH ×2 (00:48→09:18)
[2018-05-10] MEDS: Ketorolac 15 MG/ML VIAL IVP SCH ×3 (00:48→18:00)
[2018-05-10] MEDS: Metoclopramide 10 MG/2 ML VIAL IVP SCH ×3 (00:48→17:56)
[2018-05-10] MEDS: MetroNIDAZOLE 500 MG/100 ML 500 MG/100 ML BAG IVPB SCH ×2 (00:49→09:17)
[2018-05-10] MEDS: Acetaminophen IV 1,000 MG/100 ML INFUS..BTL IVPB SCH ×3 (00:49→22:23)
[2018-05-10] MEDS: OXYCODONE Oral CONC 10 MG/0.5 ML ORAL.SYG SL PRN ×3 (04:19→22:24)
[2018-05-10 04:26] LABS: Basophils # 0.1 K/mcL (0.0-0.2); Basophils % 0.3 %; Eosinophils # 0.5 K/mcL (0.0-0.6); Eosinophils % 2.8 %; Hematocrit 23.9 % (37.5-50.1); Hemoglobin 7.9 g/dL (12.9-16.9); Immature Granulocytes % 1.4 % (0-4); Lymphocytes % 6.1 %; Mean Corpuscular HGB Conc 33.1 g/dL (31.6-35.5); Mean Corpuscular Hemoglobin 29.6 pg (28.0-33.3); Mean Corpuscular Volume 89.5 fL (83.0-100.0); Mean Platelet Volume 10.3 fL (9.4-12.4); Monocytes # 1.6 K/mcL (0.0-1.3); Monocytes % 9.8 %; Neutrophils # 12.9 K/mcL (1.6-8.9); Platelet Count 439 K/mcL (140-400); Red Blood Count 2.67 M/mcL (4.19-5.50); Red Cell Distribution Width 15.4 % (11.5-14.5); Segmented Neutrophils % 79.6 %
[2018-05-10 04:41] LABS: BUN/Creatinine Ratio 50 (6-26); Blood Urea Nitrogen 22 mg/dL (8-23); Calcium 8.3 mg/dL (8.6-10.3); Carbon Dioxide 22 mEq/L (23-29); Chloride 108 mEq/L (98-107); Glucose 101 mg/dL (70-105); Magnesium 2.1 mg/dL (1.6-2.6); Osmolality,Calculated 269 (280-300); Potassium 4.1 mEq/L (3.5-5.1); Sodium 128 mEq/L (136-145); eGFR For Non-African Americans > 60 (> 60)
[2018-05-10] MEDS: Pantoprazole 40 MG VIAL IVP SCH (05:53)
[2018-05-10] MEDS: *HR* Heparin 5,000 UNIT/ML VIAL SQ SCH ×2 (05:54→18:00)
[2018-05-10] MEDS: 0.9 % Sodium Chloride 1,000 ML IVC SCH (09:17)
--- NOTE | 2018-05-10 09:22 | General Surgery Progress Note ---
Date of Encounter: 05/10/18 Time of Encounter: 09:20 - Assessment and Plan (1) Umbilical hernia Current Visit: Yes Status: Acute CT abd/pelvis with IV and oral contrast completed 05/09/18. EVENS Jasso discussed this with Dr. Bess who recommended whatchful waiting overnight to see if there was resolution of ileus vs obstruction. Possible surgical exploration if needed. Continue NG to LIWS continue NPO Attending Physician notified of changes, awaiting discussion of plan. Qualifiers: Obstruction and gangrene presence: with obstruction but without gangrene Qualified Code(s): K42.0 - Umbilical hernia with obstruction, without gangrene (2) Fever, unknown origin Current Visit: Yes Status: Resolved (3) Ileus, postoperative Current Visit: Yes Status: Acute see above (4) COPD (chronic obstructive pulmonary disease) Current Visit: Yes Status: Chronic per primary team Qualifiers: COPD type: chronic bronchitis Chronic bronchitis type: unspecified Qualified Code(s): J42 - Unspecified chronic bronchitis Subjective Patient reports: still having pain (Patient is feeling worse this morning with more pain and discomfort, no flakita movement or flatuous noted by patient), no bowel movement Objective Vital Signs - Last 8 Hours Temp Pulse Resp BP Pulse Ox 05/10/18 07:57 17 94 05/10/18 07:20 98.1 F 95 17 129/73 94 05/10/18 04:29 18 95 05/10/18 03:29 98.4 F 101 15 138/84 96 Intake and Output 05/09/18 05/10/18 05/10/18 23:59 07:59 15:59 Intake Total 200 / 200 1570 / 1570 Output Total 250 / 250 1000 / 1000 Balance -50 / -50 570 / 570 Intake: IV Fluids 200 / 200 1570 / 1570 0.9 % Sodium Chloride 1,000 ML 1000 / 1000 @ 100 mls/hr IVC .Q10H [facility] Rx#: [id number] Maxipime 2,000 MG In Water for 20 / 20 inj. (sterile) 20 ML @ 300 mls/ hr IVP Q8HR [facility] Rx#:[id number] Ofirmev 1,000 mg/100 ml 1,000 100 / 100 200 / 200 mg In 100 ml @ 400 mls/hr IVPB Q6HR [facility] Rx#:[id number] Intralipid 20% 250 ML @ 21 mls/ 250 / 250 hr IVPB DAILY@1700 [facility] Rx#: [id number] Flagyl Premix 500 MG/100 ML 500 100 / 100 100 / 100 mg In 100 ml @ 100 mls/hr IVPB Q8HR [facility] Rx#:[id number] Oral 0 / 0 Output: Catheter 250 / 250 650 / 650 Gastric Drainage 350 / 350 Other: Meal NPO Weight 73.1 kg 76.6 kg Blood Glucose* 139 131 Patient Weight 05/10/18 23:59 Weight 76.6 kg - General physical appearance well developed, well nourished, moderate distress, moderate pain - Respiratory normal expansion, normal respiratory effort, clear to auscultation - Cardiovascular Cardiovascular exam: Present: RRR, no murmurs/rubs/gallops - Abdomen Abdomen: Present: bowel sounds present, tympanic, distended, tender - Musculoskeletal normal posture - Psychiatric oriented to time, oriented to person, oriented to place - Labs 05/10/18 04:00 05/10/18 04:00 Diabetes panel 05/10/18 Range/Units 04:00 Sodium 128 L (136-145) mEq/L Potassium 4.1 (3.5-5.1) mEq/L Chloride 108 H (98-107) mEq/L Carbon Dioxide 22 L (23-29) mEq/L BUN 22 (8-23) mg/dL Creatinine 0.44 L (0.70-1.30) mg/dL Glucose 101 (70-105) mg/dL Calcium 8.3 L (8.6-10.3) mg/dL Calcium panel 05/10/18 Range/Units 04:00 Calcium 8.3 L (8.6-10.3) mg/dL Phosphorus 5.0 H (2.7-4.5) mg/dL Pituitary panel 05/10/18 Range/Units 04:00 Sodium 128 L (136-145) mEq/L Potassium 4.1 (3.5-5.1) mEq/L Chloride 108 H (98-107) mEq/L Carbon Dioxide 22 L (23-29) mEq/L BUN 22 (8-23) mg/dL Creatinine 0.44 L (0.70-1.30) mg/dL Glucose 101 (70-105) mg/dL Calcium 8.3 L (8.6-10.3) mg/dL Adrenal panel 05/10/18 Range/Units 04:00 Sodium 128 L (136-145) mEq/L Potassium 4.1 (3.5-5.1) mEq/L Chloride 108 H (98-107) mEq/L Carbon Dioxide 22 L (23-29) mEq/L BUN 22 (8-23) mg/dL Creatinine 0.44 L (0.70-1.30) mg/dL Glucose 101 (70-105) mg/dL Calcium 8.3 L (8.6-10.3) mg/dL - VTE Documentation of Mechanical Device: Intermittent pneumatic compression device Consult Discharge Plan - Plan Referrals: Breanna Ocampo CNP [Advanced Practice Nurse] - 05/15/18 1:30 pm
--- NOTE | 2018-05-10 10:07 | Internal Med Progress Note ---
<Keeley Rivera P - Last Filed: 05/10/18 16:14> Date of Encounter: 05/10/18 Time of Encounter: 09:00 - Assessment and plan (1) Pneumonia Current Visit: Yes Status: Suspected Assessment and plan: Suspected pneumonia due to atelectasis , is on IV antibiotics Levofloxacin and metronidazole and supplemental Oxygen He states that the cough is better today . Recent Xray shows mild pulmonary oedema , blunting of costophrenic angles both side and minimal pleural effusion both side Qualifiers: Pneumonia type: aspiration pneumonia Laterality: right Lung location: lower lobe of lung Qualified Code(s): J69.0 - Pneumonitis due to inhalation of food and vomit (2) Small bowel obstruction Current Visit: Yes Status: Acute Assessment and plan: Small bowel obstruction with transition point at Umbilical hernia Robotic incisional hernia repair done on 04/28 . He is on metronidazone and levofloxacin NG tube decompression done yesterday , NG tube is in situ. Abdominal distension is less as compared to before and bowel sound sluggish.Continuous monitoring and NG tube with conservative treatment decompression CT chest shows small bowel distention measures upto 5.5 cm and it has been worse over past 4-5 days . Surgical team in on watch and wait with conservative treatment Vs Surgery Anaesthesia Team consulted for Preop evaluation Exploratory laparotomy done today to address SBO and suspected bowel perforation. (3) COPD (chronic obstructive pulmonary disease) Current Visit: Yes Status: Chronic Assessment and plan: He is a chronic case of COPD , has mild productive cough , but cough is better than before . He is on Cefipime antibotics . His xray chest shows minimal pleural effusion both side and mild pulmonary edema that might be the reason for SOB He has developed mild pulmonary oedema , probably due to fluid over load Qualifiers: COPD type: chronic bronchitis Chronic bronchitis type: unspecified Qualified Code(s): J42 - Unspecified chronic bronchitis (4) Lung nodule Current Visit: Yes Status: Acute Assessment and plan: He has lung nodule 1.2 x 1 cm , Oncology follow up done and will review with PET CT and possible biopsy Today 's CT scan report shows 11 mm spiculated nodule at lateral aspect of lung apex suspected malignancy CT chest shows enlarged Mediastinal and Rt peritracheal LN Follow up with Oncology team : possibly PET CT and biopsy (5) Tachycardia Current Visit: Yes Status: Acute Assessment and plan: Now is is better now , Today pul record : 97/minutes (6) Hematuria Current Visit: Yes Status: Acute Assessment and plan: Patient has blood in his urine since yesterday. Blood mixed urine , but no clots Heparin was stopped urology team consulted Qualifiers: Qualified Code(s): R31.9 - Hematuria, unspecified - Subjective Interval history: This 67 years old male is admitted for pneumonia and high grade small bowel obstruction transition point in Umbilical hernia. He has done Robotic incisional hernia repair on 04/28 . Recently he developed distention of abdomen and generalized pain in whole abdomen . Last Night he developed hematuria , so Urologist consulted, heparin drip on hold.He complains redness and pain in umbilical area. He has mild cough with whitish productive sputum. He denies any dyspnoea , fever , sweating . He is on Oxygen therapy . He thinks that it has been a little better today as compare to yesterday. He has been placed NG tube for gastric decompression. Surgical team were on watch and wait with conservative treatment Vs surgical exploration, today surgical team asked for anaesthetic evaluation and surgical team did exploratory laparotomy for SBO today . - Constitutional Vitals: Temp Pulse Resp BP Pulse Ox 98.1 F 95 17 129/73 94 05/10/18 07:20 05/10/18 07:20 05/10/18 07:57 05/10/18 07:20 05/10/18 07:57 General appearance: Present: cooperative, A&O X 2 (issues with memory occasionally, likely due to acute illness), no acute distress, answers questions appropriately - Head Head exam: Present: normal inspection, normocephalic - Respiratory Additional comments: Chest expansion good both side, air entry is equal but slightly diminished air entry at lower chest bilaterally - Cardiovascular Additional comments: S1 S2 no murmur or any added sound , no JVD - GI/Abdominal Additional comments: Soft to firm, distended abdomen with sluggish bowel sound. Swelling and redeness in Umbilicus area - Psychiatric Psychiatric exam: Present: anxious, normal mood Internal Medicine: Result - Labs CBC & Chem 7: 05/10/18 04:00 05/10/18 04:00 Labs: Short CBC 05/10/18 Range/Units 04:00 WBC 16.2 H (4.3-11.1) K/mcL Hgb 7.9 L D (12.9-16.9) g/dL Hct 23.9 L (37.5-50.1) % Plt Count 439 H (140-400) K/mcL Neutrophils # 12.9 H (1.6-8.9) K/mcL BMP 05/10/18 04:00 Sodium 128 L Potassium 4.1 Chloride 108 H Carbon Dioxide 22 L BUN 22 Creatinine 0.44 L Glucose 101 Calcium 8.3 L - ABG Interpretation ABG results: PT/INR, D-dimer PT 13.2 Seconds (9.4-12.1) H 04/26/18 13:34 - Impressions Impressions Abdomen/Pelvis CT 05/09/18 11:30 IMPRESSION: Slight worsening of diffuse small bowel distention with air-fluid levels over the past 4 days with the distal 6-8 cm of the terminal ileum normal in caliber. This appearance is highly suspicious for mechanical mid to distal small bowel obstruction. Transition point appears to be within the anterior aspect of the abdomen near a periumbilical hernia. Slight increased amount of free fluid and probable free air within the anterior peritoneal cavity just deep to the periumbilical hernia sac over the past 4 days. Although patient has had recent abdominal surgery within the past week, this increasing extraluminal air could be secondary to new bowel perforation. Critical results were called by Dr. David Pruitt MD to Dr. Bess On 05/09/2018 at 13:21. D/ / David Pruitt MD / David Pruitt MD Interpreting Provider: David Pruitt MD Chest CT 05/09/18 11:30 IMPRESSION: Worsening bilateral pleural effusions now moderate in size with worsening volume loss and consolidation both lower lungs over 4 days. In addition there is diffuse dependent interstitial lung markings throughout both lungs most compatible with interstitial pulmonary edema. This appearance may all be secondary to volume overload and/or moderate congestive heart failure. However, possibility of superimposed pneumonia in either lung base cannot be excluded. Persistent 11 mm spiculated nodule lateral aspect right lung apex suspicious for malignancy. Several mildly prominent mediastinal lymph nodes may be reactive lymph nodes due to possible bibasilar pneumonia but cannot exclude the possibility of malignant lymphadenopathy. D/ / 05/09/2018 12:36:12 David Pruitt MD / gemma Interpreting Provider: David Pruitt MD - VTE Documentation of Mechanical Device: Intermittent pneumatic compression device Consult Discharge Plan - Plan Referrals: Breanna Ocampo CNP [Advanced Practice Nurse] - 05/15/18 1:30 pm <Lise Daley - Last Filed: 05/10/18 17:57> Date of Encounter: 05/10/18 - Assessment and plan (1) Lactic acidosis Current Visit: Yes Status: Resolved (2) Abnormal EKG Current Visit: Yes Status: Acute (3) DVT prophylaxis Current Visit: Yes Status: Acute (4) NUNU (acute kidney injury) Current Visit: Yes Status: Resolved (5) Umbilical hernia Current Visit: Yes Status: Acute Qualifiers: Obstruction and gangrene presence: with obstruction but without gangrene Qualified Code(s): K42.0 - Umbilical hernia with obstruction, without gangrene (6) COPD (chronic obstructive pulmonary disease) Current Visit: Yes Status: Chronic Qualifiers: COPD type: chronic bronchitis Chronic bronchitis type: unspecified Qualified Code(s): J42 - Unspecified chronic bronchitis (7) Hyponatremia Current Visit: No Status: Resolved (8) SIRS (systemic inflammatory response syndrome) Current Visit: Yes Status: Resolved (9) Small bowel obstruction Current Visit: Yes Status: Acute - Constitutional Vitals: Temp Pulse Resp BP Pulse Ox 97.2 F L 101 20 135/67 94 05/10/18 16:26 05/10/18 16:26 05/10/18 16:26 05/10/18 16:26 05/10/18 16:26 Internal Medicine: Result - Labs CBC & Chem 7: 05/10/18 04:00 05/10/18 04:00 Labs: Short CBC 05/10/18 Range/Units 04:00 WBC 16.2 H (4.3-11.1) K/mcL Hgb 7.9 L D (12.9-16.9) g/dL Hct 23.9 L (37.5-50.1) % Plt Count 439 H (140-400) K/mcL Neutrophils # 12.9 H (1.6-8.9) K/mcL BMP 05/10/18 04:00 Sodium 128 L Potassium 4.1 Chloride 108 H Carbon Dioxide 22 L BUN 22 Creatinine 0.44 L Glucose 101 Calcium 8.3 L - ABG Interpretation ABG results: PT/INR, D-dimer PT 13.2 Seconds (9.4-12.1) H 04/26/18 13:34 - Attending Attestation I examined this patient and my medical decision-making was reviewed with the Resident Physician. I agree with the documented findings, disposition and treatment plan as described except to the extent set forth below. He is in discomfort, but non-toxic appearing. Bowel sounds present, abdomen distended, soft. Plan is for Surgery likely within the hour at the time of my examination.
--- NOTE | 2018-05-10 11:05 | Urology - Consult Note ---
Date of Encounter: 05/10/18 Time of Encounter: 11:04 - Assessment and Plan (1) Gross hematuria Current Visit: Yes Status: Acute Assessment and plan: This appears to be resolving with fluids overnight. Recommend to keep catheter in place. We will continue to observe daily. (2) Nocturia Current Visit: Yes Status: Acute Assessment and plan: Patient will need to cut back on fluids before bedtime. This would be evaluated once the patient has been discharged from the hospital. (3) Weak urinary stream Current Visit: Yes Status: Acute Assessment and plan: Will keep catheter in place. We will continue to follow along with primary team. Urology CN:HPI Consult date: 05/10/18 Reason for consult Urology: Gross Hematuria Requesting physician: David Molina History of present illness: Misha is a 67-year-old male who started to develop gross hematuria last night. Patient has indwelling urethral catheter. His hematuria has seemed to improve overnight. Patient without any clots. Patient denies ever having this problem before. No obvious tugging or pulling on catheter. Patient does state that he has occasional problems with nocturia. Occasional weak urinary stream. Past Med Surg Social Fam HX - Past Medical History Medical history: COPD, GERD, hyperlipidemia, hypertension Additional medical history: polio Psychiatric history: no psych history - Past Surgical History Surgical History: appendectomy (open- perforated appendicitis) Additional surgical history: right hip repair - Social History Smoking Status: Current every day smoker Smokeless Tobacco Status: No Alcohol use: heavy (admits to 3-4 beers/day) Drug use: none - Family History Mother History Unknown: Yes Hx Family Cardiac Disorders: Yes (sister) Hx Family Respiratory Disorders: Yes (asthma) Hx Family Cancer: No Hx Family GI Disorders: No Hx Family Endocrine Disorder: No Hx Family Neuromuscular Disorders: No Hx Family Neurologic Disorders: No Hx Family HEENT Disorders: No Hx Family Autoimmune Disorders: No Medications and Allergies Ipratropium/Albuterol Sulfate [Combivent Respimat Inhal [place]] 1 puff IH QID 10/26 [History] Loratadine [Allergy Relief] 10 mg PO DAILY 09/09/17 [History] Metoprolol Succinate 25 mg PO DAILY 09/09/17 [History] Montelukast [Singulair] 10 mg PO DAILY 09/09/17 [History] Ranitidine HCl [Acid Health Spa Manager] 150 mg PO BID 09/09/17 [History] Simvastatin [Zocor] 40 mg PO HS 09/09/17 [History] 3 Allergy/AdvReac Type Severity Reaction Status Date / Time Penicillins Allergy See Verified 04/10/18 12:50 Comments Review of Systems ROS unobtainable: due to mental status Exam Initial Vital Signs Temp Pulse Resp BP Pulse Ox 97.6 F 100 16 83/48 97 04/26/18 13:10 04/26/18 13:10 04/26/18 13:10 04/26/18 13:10 04/26/18 13:10 - General physical appearance Present: well developed, well nourished - Eyes Present: PERRL - Neck Present: no masses, no lymphadenopathy - Respiratory Present: normal respiratory effort - Cardiovascular Cardiovascular exam IM: RRR - Abdomen Abdomen: Present: soft - Genitourinary normal penis with no external lesions (Slightly blood-tinged urine in catheter tubing) Urology Results - Labs 05/10/18 04:00 05/10/18 04:00 Abnormal lab results WBC 16.2 K/mcL (4.3-11.1) H 05/10/18 04:00 RBC 2.67 M/mcL (4.19-5.50) L 05/10/18 04:00 Hgb 7.9 g/dL (12.9-16.9) L D 05/10/18 04:00 Hct 23.9 % (37.5-50.1) L 05/10/18 04:00 RDW 15.4 % (11.5-14.5) H 05/10/18 04:00 Plt Count 439 K/mcL (140-400) H 05/10/18 04:00 Metamyelocytes % 2.0 % (0) H 05/02/18 04:04 Myelocytes % 6.0 % (0) H 05/02/18 04:04 Neutrophils # 12.9 K/mcL (1.6-8.9) H 05/10/18 04:00 Monocytes # 1.6 K/mcL (0.0-1.3) H 05/10/18 04:00 PT 13.2 Seconds (9.4-12.1) H 04/26/18 13:34 Sodium 128 mEq/L (136-145) L 05/10/18 04:00 Chloride 108 mEq/L (98-107) H 05/10/18 04:00 Carbon Dioxide 22 mEq/L (23-29) L 05/10/18 04:00 Creatinine 0.44 mg/dL (0.70-1.30) L 05/10/18 04:00 BUN/Creatinine Ratio 50 (6-26) H 05/10/18 04:00 POC Glucose 131 mg/dL (70-99) H 05/10/18 03:26 Calculated Osmolality 269 (280-300) L 05/10/18 04:00 Calcium 8.3 mg/dL (8.6-10.3) L 05/10/18 04:00 Phosphorus 5.0 mg/dL (2.7-4.5) H 05/10/18 04:00 Direct Bilirubin 0.3 mg/dL (0.0-0.2) H 04/26/18 13:34 Troponin I 0.04 ng/mL (< 0.04) H* 04/26/18 19:02 B-Natriuretic Peptide 747 pg/mL (Less than 100) H 05/09/18 03:25 Albumin 2.5 g/dL (3.5-5.7) L 05/09/18 03:25 Prealbumin 6.5 mg/dL (17.0-34.0) L 05/09/18 10:40 Lipase 8 Units/L (11-82) L 04/26/18 13:34 Urine Protein 30 mg/dL (Neg-Trace) H 05/02/18 18:00 Urine Ketones 15 mg/dL (Negative) H 05/02/18 18:00 Urine Nitrite Positive (Negative) A 05/02/18 18:00 Urine Bilirubin Small (Negative) H 05/02/18 18:00 Ur Leukocyte Esterase Trace (Negative) H 05/02/18 18:00 Ur Squamous Epith Cells Many per lpf (None-Few) H 05/02/18 18:00 Granular Casts Few per lpf (None Seen) H 04/26/18 21:30 Urine Mucus Many (Few) H 04/26/18 21:30 Urine Yeast Many per hpf (None Seen) H 04/26/18 21:30 Ur Culture Indicated? NO. (NO) A 05/02/18 18:00 Mycoplasma pneumon IgG 0.11 U/L (<=0.09) H 04/26/18 19:02 Diabetes panel 05/10/18 Range/Units 04:00 Sodium 128 L (136-145) mEq/L Potassium 4.1 (3.5-5.1) mEq/L Chloride 108 H (98-107) mEq/L Carbon Dioxide 22 L (23-29) mEq/L BUN 22 (8-23) mg/dL Creatinine 0.44 L (0.70-1.30) mg/dL Glucose 101 (70-105) mg/dL Calcium 8.3 L (8.6-10.3) mg/dL Calcium panel 05/10/18 Range/Units 04:00 Calcium 8.3 L (8.6-10.3) mg/dL Phosphorus 5.0 H (2.7-4.5) mg/dL Pituitary panel 05/10/18 Range/Units 04:00 Sodium 128 L (136-145) mEq/L Potassium 4.1 (3.5-5.1) mEq/L Chloride 108 H (98-107) mEq/L Carbon Dioxide 22 L (23-29) mEq/L BUN 22 (8-23) mg/dL Creatinine 0.44 L (0.70-1.30) mg/dL Glucose 101 (70-105) mg/dL Calcium 8.3 L (8.6-10.3) mg/dL Adrenal panel 05/10/18 Range/Units 04:00 Sodium 128 L (136-145) mEq/L Potassium 4.1 (3.5-5.1) mEq/L Chloride 108 H (98-107) mEq/L Carbon Dioxide 22 L (23-29) mEq/L BUN 22 (8-23) mg/dL Creatinine 0.44 L (0.70-1.30) mg/dL Glucose 101 (70-105) mg/dL Calcium 8.3 L (8.6-10.3) mg/dL All other labs normal. Consult Discharge Plan - Plan Referrals: Breanna Ocampo CNP [Advanced Practice Nurse] - 05/15/18 1:30 pm
--- NOTE | 2018-05-10 12:11 | Anesthesia Evaluation PreOp ---
Date of Encounter: 05/10/18 Time of Encounter: 12:09 - Past History Planned Operation: Exploratory Laparotomy Cardiac History: HTN, Hyperlipidemia, Other (TTE with LVEF 55%, atypical septal motion consistent with bundle branch block, no significant valvular dysfunction , no segmental wall motion abnormalities noted.) Pulmonary History: Smoker, Pack/yr (3 ppd x 45 years), COPD (on home O2) REGISTERED NURSE MIDWIFE History: Denies Any Significant HX Other Medical History: GERD, Other (polio, incisional hernia with SBO, Hyponatremia) Anesthesia History: No Prior Anesthetic Complications, Past Anesthesia (Robot assisted incisional hernia repair, R. Hip) Alcohol Use: heavy (admits to 3-4 beers/dayadmits to 3-4 beers/day) Drug use: none Medications and Allergies Ipratropium/Albuterol Sulfate [Combivent Respimat Inhal [place]] 1 puff IH QID 10/26 [History] Loratadine [Allergy Relief] 10 mg PO DAILY 09/09/17 [History] Metoprolol Succinate 25 mg PO DAILY 09/09/17 [History] Montelukast [Singulair] 10 mg PO DAILY 09/09/17 [History] Ranitidine HCl [Acid Drum Handler] 150 mg PO BID 09/09/17 [History] Simvastatin [Zocor] 40 mg PO HS 09/09/17 [History] 3 Allergy/AdvReac Type Severity Reaction Status Date / Time Penicillins Allergy See Verified 04/10/18 12:50 Comments - Meds/Allergy Pre-op Review Medications Reviewed: Yes Allergies Reviewed: Yes Beta Blockers on Current Med List: Yes If Beta Blockers taken, Date/Time (Last Dose taken): 05:53 05/10/2018 Anesthesia Results - Labs 05/10/18 04:00 05/10/18 04:00 Echo with Imaging Enhancement Agent Name: Misha Freed Date of Study: 04/27/2018 EV/EV echocardiogram w enhance Impressions: Technically sub-optimal due to poor echocardiographic windows. LVEF 55%. Normal LV chamber size, wall thickness and function. Atypical septal motion consistent with bundle branch block. Mild left ventricular diastolic dysfunction. Normal right ventricular structure and function. Unable to estimate RVSP due to lack of TR jet. No significant valvular dysfunction. - Imaging EKG: report reviewed (SINUS TACHYCARDIA PREMATURE VENTRICULAR CONTRACTIONS MINIMAL ST DEPRESSION) Anesthesia Exam Vital Signs/O2 Sat, Most Current Temp Pulse Resp BP Pulse Ox 98.1 F 95 17 129/73 94 05/10/18 07:20 05/10/18 07:20 05/10/18 07:57 05/10/18 07:20 05/10/18 07:57 NPO (# of Hours): > 8 Hrs Pain Scale: 0 Pain Scale Used: Numeric (1 - 10) - HEENT Pupil (Motor): Pupils equal, EOMI Mallampati: II Teeth: Edentulous Oral Opening: Greater than 3 - REGISTERED NURSE MIDWIFE LOC: Oriented REGISTERED NURSE MIDWIFE Motor: Normal RUE, Normal LUE, Normal RLE, Normal LLE, Normal Face REGISTERED NURSE MIDWIFE Sensory: Normal: RUE, LUE, RLE, LLE, Face - Cardiac Rhythm: Regular Murmur: None JVD: No Carotid Bruit: No - Pulmonary Breath Sounds: bilateral Clear Respiratory Effort: Symmetrical Anesthesia Assess/Plan ASA Score: 3, E Modified Rocio Scale for Level of Consciousness: Cooperative, oriented, and tranquil Anesthetic Plan: General Autologous Blood: Yes Monitoring Plan: Standard Monitors Recovery Plan: PACU
[2018-05-10] MEDS ORDERED: *HR* FentaNYL (PF) 100 MCG/2 ML VIAL ONE ×3 (13:05→15:01)
[2018-05-10] MEDS ORDERED: *HR* Propofol 200 MG/20 ML VIAL IVP ONE (13:05)
[2018-05-10] MEDS ORDERED: Lidocaine -MPF 2% 2 ML VIAL ONE (13:10)
[2018-05-10] MEDS ORDERED: *HR* Rocuronium Bromide 50 MG/5 ML VIAL ONE (13:10)
[2018-05-10] MEDS ORDERED: Dexamethasone 4 MG/ML VIAL ONE (13:11)
[2018-05-10] MEDS ORDERED: Ondansetron 4 MG/2 ML VIAL ONE (13:11)
[2018-05-10] MEDS ORDERED: Lidocaine -MPF 4% 5 ML AMPUL ONE (13:16)
[2018-05-10] MEDS ORDERED: Albumin Human 5% 25.0 GM/500 ML VIAL ONE (13:18)
[2018-05-10] MEDS ORDERED: *HR* PHENYLEPHRINE 1,000 MCG/10 ML SYRINGE IVP ONE (13:48)
[2018-05-10] MEDS ORDERED: *HR* Morphine 10 MG/ML VIAL ONE (15:02)
--- NOTE | 2018-05-10 15:09 | Operative Note ---
Date of procedure: 05/10/18 Pre-op diagnosis: Small bowel obstruction Post-op diagnosis: same Procedure: Exporter laparotomy with lysis of adhesions 45 minutes Small bowel resection due to adhesio lysis Right colectomy Anesthesia: KENNYA Surgeon: Vignesh Bess Was there an assistant paralegal present: Yes Midwife: Maribel Tripp Estimated blood loss (cc): 50 Specimen: Small bowel and right colon Condition: stable Disposition: floor Procedure in Detail: After informed consent, the patient was taken to the operating room placed in the supine position. After adequate sedation and anesthesia the abdomen was prepped and draped. A midline incision was created. Patient previously undergone incisional hernia repair. The mesh was visible. Sutures were removed and the mesh was taken out. There were multiple dilated loops of small bowel which approximated 7 centimeters in diameter. The small bowel was run from the area of the ligament of Treitz to the right colon. There were multiple adhesions identified. These were lysed. Lysis of adhesions took approximate 45 minutes. Due to lysis of adhesions there were 2 small bowel enterotomies created which were expected due to the dense adhesions. These were resected and a [id number] functional end-to-end LEIDY anastomosis was created followed by closure of the common enterotomy with a TX 60. The second of these enterotomies was close the terminal ileum. The right colon was floppy and at risk for volvulus. Therefore it was resected as well. The distal terminal ileum was anastomosed to the hepatic flexure via [id number] functional end-to-end anastomosis utilizing a LEIDY stapler and a TX 60 stapler. Once completed a drain was placed in the pelvis was irrigated approximately 1500 mL saline. The abdomen was prepped with Seprafilm on the underneath surface and then closed with 2 individual loop PDS sutures. Skin was closed with jefry.
[2018-05-10] MEDS ORDERED: *HR* HYDROmorphone 2 MG/ML SYRINGE ONE (15:29)
[2018-05-10] MEDS: *HR* HYDROmorphone (PF) 1 MG/ML SYRINGE IVP PRN ×4 (15:30→16:00)
[2018-05-10] MEDS ORDERED: *HR* Promethazine 25 MG/ML VIAL IVP PRN (15:32)
[2018-05-10] MEDS ORDERED: *HR* Meperidine 25 MG/ML SYRINGE IVP PRN (15:32)
[2018-05-10] MEDS ORDERED: Acetaminophen IV 1,000 MG/100 ML INFUS..BTL IVPB ONE (15:32)
[2018-05-10] MEDS ORDERED: Albuterol 2.5 MG/3 ML NEBULIZER IH PRN (15:32)
--- NOTE | 2018-05-10 16:18 | Anesthesia Evaluation Post Op ---
Date of Encounter: 05/10/18 Time of Encounter: 16:16 - Vital Signs Vital Signs: Vital Signs/O2 Sat, Most Current Temp Pulse Resp BP Pulse Ox 97.6 F 99 18 124/68 93 05/10/18 15:46 05/10/18 16:06 05/10/18 16:06 05/10/18 16:06 05/10/18 16:06 - Lungs Lungs: Clear Ascult./Percussion - Airway Airway: Non-obstructed - Cardiovascular Regular Rate - Mental Status Mental Status: Alert & Oriented, Answers Appropriately - Pain Pain Scale: 10 (pt states pain is a "10" but tolerable, pt sleepy) Pain Scale used: Numeric (1 - 10) - Nausea Vomiting Nausea Vomiting: Not Present - Hydration Hydration: NPO, Acosta catheter - Discharge PostOp Status: Transfer Patient to floor
[2018-05-10] MEDS ORDERED: Clinimix E 5%-15% SOLUTION 2,000 ML with MVI, adult with vitamin K 10 ML, Trace Eleme... IVC SCH ×2 (17:00→17:07)
[2018-05-10] MEDS ORDERED: Saliva Stimulant 100ml BOTTLE PO PRN (17:07)
[2018-05-10] MEDS ORDERED: D10% in Water 500 ML IVC PRN (17:07)
[2018-05-10] MEDS ORDERED: Naloxone 0.4 MG/ML INJ IVP PRN (17:07)
[2018-05-10] MEDS ORDERED: Ondansetron 4 MG/2 ML VIAL IVP PRN (17:07)
[2018-05-10] MEDS ORDERED: Simethicone 80 MG TAB.CHEW PO PRN (17:07)
[2018-05-10] MEDS ORDERED: Ipratropium/Albuterol Neb 3 ML IH SCH (20:00)
--- NOTE | 2018-05-10 20:52 | Electrocardiograph Report ---
[address] [address] Test Date: 2018-05-08 Pat Name: Misha Freed Department: 115 Room: 3A44 Gender: [employer] Dispatcher: SONAL : 1950 Requested By: Radha Jasso Order Number: [id number] Reading MD: Kim Phillips Measurements Intervals [place] Rate: 104 P: NV: 0 QRS: 51 QRSD: 99 T: 56 QT: 351 QTc: 411 Interpretive Statements NORMAL SINUS RHYTHM VENTICULAR ECTOPY Electronically Signed On 05-10-2018 17:22:36 EDT by Kim Phillips
[2018-05-10] MEDS ORDERED: Bisacodyl 10 MG RECTAL SUPPOSITORY RC SCH (21:00)
[2018-05-10] MEDS: Ipratropium/Albuterol Neb 3 ML IH PRN (23:00)
[2018-05-11] MEDS: MetroNIDAZOLE 500 MG/100 ML 500 MG/100 ML BAG IVPB SCH ×4 (00:27→23:19)
[2018-05-11] MEDS: Ketorolac 15 MG/ML VIAL IVP SCH ×5 (00:28→23:18)
[2018-05-11] MEDS: *HR* Metoprolol 5 MG/5 ML VIAL IVP SCH ×5 (00:28→23:20)
[2018-05-11] MEDS: Cefepime HCl 2,000 MG in Water for inj. (sterile) 20 ML 20 ML IVP SCH ×4 (00:28→23:19)
[2018-05-11] MEDS: Metoclopramide 10 MG/2 ML VIAL IVP SCH ×5 (00:28→23:18)
[2018-05-11 04:27] LABS: Basophils % 0.3 %; Eosinophils % 0.3 %; Immature Granulocytes % 0.9 % (0-4); Lymphocytes % 6.5 %; Mean Corpuscular HGB Conc 33.3 g/dL (31.6-35.5); Mean Corpuscular Hemoglobin 30.3 pg (28.0-33.3); Mean Corpuscular Volume 90.9 fL (83.0-100.0); Mean Platelet Volume 10.3 fL (9.4-12.4); Monocytes # 0.9 K/mcL (0.0-1.3); Monocytes % 5.8 %; Neutrophils # 12.9 K/mcL (1.6-8.9); Platelet Count 498 K/mcL (140-400); Red Blood Count 2.97 M/mcL (4.19-5.50); Red Cell Distribution Width 15.4 % (11.5-14.5); Segmented Neutrophils % 86.2 %
[2018-05-11 04:46] LABS: BUN/Creatinine Ratio 57 (6-26); Blood Urea Nitrogen 27 mg/dL (8-23); Calcium 7.4 mg/dL (8.6-10.3); Carbon Dioxide 20 mEq/L (23-29); Chloride 104 mEq/L (98-107); Glucose 134 mg/dL (70-105); Osmolality,Calculated 277 (280-300); Potassium 4.7 mEq/L (3.5-5.1); Sodium 130 mEq/L (136-145); eGFR For Non-African Americans > 60 (> 60)
[2018-05-11] MEDS: Pantoprazole 40 MG VIAL IVP SCH (06:25)
[2018-05-11] MEDS: Acetaminophen IV 1,000 MG/100 ML INFUS..BTL IVPB SCH ×4 (06:25→22:54)
[2018-05-11] MEDS: *HR* Heparin 5,000 UNIT/ML VIAL SQ SCH ×2 (06:26→18:13)
--- NOTE | 2018-05-11 07:40 | Urology Progress Note ---
Date of Encounter: 05/11/18 Time of Encounter: 07:39 - Assessment and Plan (1) Gross hematuria Current Visit: Yes Status: Acute Assessment and plan: Appears resolved. Okay to remove catheter per primary team. Patient will need follow-up in 3-4 weeks after discharge for repeat urinalysis. Call with any questions (2) Nocturia Current Visit: Yes Status: Acute (3) Weak urinary stream Current Visit: Yes Status: Acute Progress Note Narrative: Patient status post export her laparotomy yesterday. Feeling much better. Objective Initial Vital Signs Temp Pulse Resp BP Pulse Ox 97.6 F 100 16 83/48 97 04/26/18 13:10 04/26/18 13:10 04/26/18 13:10 04/26/18 13:10 04/26/18 13:10 - General physical appearance Present: well developed, well nourished - Abdomen Present: soft - Genitourinary Present: other (Urine clear in catheter tubing) - Labs 05/11/18 04:03 05/11/18 04:03 Diabetes panel 05/11/18 Range/Units 04:03 Sodium 130 L (136-145) mEq/L Potassium 4.7 (3.5-5.1) mEq/L Chloride 104 (98-107) mEq/L Carbon Dioxide 20 L (23-29) mEq/L BUN 27 H (8-23) mg/dL Creatinine 0.47 L (0.70-1.30) mg/dL Glucose 134 H (70-105) mg/dL Calcium 7.4 L (8.6-10.3) mg/dL Calcium panel 05/11/18 Range/Units 04:03 Calcium 7.4 L (8.6-10.3) mg/dL Pituitary panel 05/11/18 Range/Units 04:03 Sodium 130 L (136-145) mEq/L Potassium 4.7 (3.5-5.1) mEq/L Chloride 104 (98-107) mEq/L Carbon Dioxide 20 L (23-29) mEq/L BUN 27 H (8-23) mg/dL Creatinine 0.47 L (0.70-1.30) mg/dL Glucose 134 H (70-105) mg/dL Calcium 7.4 L (8.6-10.3) mg/dL Adrenal panel 05/11/18 Range/Units 04:03 Sodium 130 L (136-145) mEq/L Potassium 4.7 (3.5-5.1) mEq/L Chloride 104 (98-107) mEq/L Carbon Dioxide 20 L (23-29) mEq/L BUN 27 H (8-23) mg/dL Creatinine 0.47 L (0.70-1.30) mg/dL Glucose 134 H (70-105) mg/dL Calcium 7.4 L (8.6-10.3) mg/dL - VTE Documentation of Mechanical Device: Intermittent pneumatic compression device Consult Discharge Plan - Plan Referrals: Breanna Ocampo CNP [Advanced Practice Nurse] - 05/15/18 1:30 pm
[2018-05-11 08:04] LABS: Phosphorous 3.8 mg/dL (2.7-4.5)
--- NOTE | 2018-05-11 08:54 | General Surgery Progress Note ---
Date of Encounter: 05/11/18 Time of Encounter: 08:30 - Assessment and Plan (1) Small bowel obstruction due to adhesions Current Visit: Yes Status: Acute Date of procedure: 05/10/18 Pre-op diagnosis: Small bowel obstruction Post-op diagnosis: same Procedure: Exporter laparotomy with lysis of adhesions 45 minutes Small bowel resection due to adhesion lysis Right colectomy Anesthesia: GETA Surgeon: Vignesh Bess POD #1 as above. Per further review with surgeon, patient has two anastomosis from surgery (small bowel and small bowel to ascending colon). Pt states he is feeling better today compared to yesterday. He states he is sore, but the previous discomfort is resolved. He denies n/v, flatus, or BM. His exam is as expected. Aprox 150 ml serous drainage from FROILAN and 200 ml output per NG. Plan: Continue supportive care and discomfort management -NG to LIWS -NPO except ice chips for comfort -schedule Ofirmev and toradol; SL oxycodone for breakthrough pain Continue aggressive pulm toileting and AccuPap per RT Serial abdominal exams Repeat am labs FROILAN drain care: Do not let the FROILAN dangle from the body. Please attach FROILAN to gown with safety pin. Strip lines Q8 hours at minimum. Maintain FROILAN bulb to suction. Report any changes in FROILAN output. Continue IV ATBX per primary team for pneumonia. WBC is downtrending Hgb stable 9.0, no overt signs of bleeding Continue TPN for severe protein malnutrition okay for diuresis per primary team if indicated continue Maxwell for accurate intake and output daily standing scale weights only continue PT and OT out of bed to chair at least TID (2) Umbilical hernia Current Visit: Yes Status: Acute Date of procedure: 04/28/18 Pre-op diagnosis: Recurrent Incisional hernia Post-op diagnosis: same Procedure: Robotic Recurrent Incisional hernia repair mesh Surgeon: Dr. Bess POD#13 as above. Brief clinical summary 05/08/2018: He has had a prolonged postoperative ileus. NG was removed on 05/02/2018 after patient had small BMS (following 2 doses of methylnatrexone and continued reglan ). He continued low-grade fevers (99.6), but on 05/05/2108 he spike a fever of 101.2. CT of chest, abdomen, and pelvis were obtained which noted significant dilation of mostly small bowel loops with a transition point in the pelvis, ventral hernia with fluid and a small amount of air suggestive of inflammation ( reviewed with attending surgeon who stated there was no evidence of strangulated hernia but more consistent with postoperative seroma and no indication to aspirate the periiumbilical swelling), no evidence of abscess, bilateral pleural effusions and consolidated changes, two focal areas of wall thickening in the bladder noted. He was recommended to have his NG replaced at this time, but he he refused. Of note on 05/05/2018, the patient did admit to being untruthful about his symptoms because he did not want the NG tube replaced and Of note, he did have an increase in fever and WBC on 05/04- coinciding with a 24 hour history or IV ATBX completed per original order. These were restarted and patient's WBC has improved (no results available for 05/08/2018). He is currently on Levo/ Flagyl Throughout the weekend he has had sips of ice chips, reports a bowel movement only after enema administration, and states he "might have passed gas through the night." He reports that his abdomen feels full, distended, achy, nauseated, but without vomiting. The area of erythema at the periumbilical area remains consistent with seroma. There is no evidence of abscess. An acute abdominal series was obtained on 05/08/2018 which noted no change in dilation of small bowel loops. refused NG placement until later in the day after two more physicians recommended NG placement. 250 ml clear fluids and air returned. 05/09/2018: NG placed 05/08/18. 750 ml output per NG. No improvement in abd distention, nausea, tympany, and remains without BS. No flatus, no BM. Weight noted (16.2 lbs WG since admission), unsure of accuracy, will check standing scale weight. +5.7L fluid balance, will check albumin, BNP, and CXR. Tachycardia resolved with BBs. WBC increased 13.4>>16.2 and without bandemia. hgb stable 9.4 and no overt signs of bleeding. His abd exam is nonperitoneal. He is tender to palpation at the umbilicus. The erythema remains inside the margins drawn; suspect reaction to seroma, but no clear indication to aspirate remains. There is no drainage or cellulits noted. Rectal temp 99.6. Blood cultures 04/26 and no growth; BC 05/06 pending. Remained on Levo/Flagyl ( previously cipro/flagyl); Echo 04/27/2018 with EF 55%, mild diastolic dysfunction, BBB; Oncology recommends outpatient follow-up for suspected right lung CA. CT abd/pelvis was repeated and reviewed with Dr. Bess. Watchful waiting and NG decompression. , he continued to have increased distention and was taken to the OR ( see SBO above). Plan: See A/P above Qualifiers: Obstruction and gangrene presence: with obstruction but without gangrene Qualified Code(s): K42.0 - Umbilical hernia with obstruction, without gangrene (3) Ileus, postoperative Current Visit: Yes Status: Acute See above (4) COPD (chronic obstructive pulmonary disease) Current Visit: Yes Status: Chronic Per primary team Qualifiers: COPD type: chronic bronchitis Chronic bronchitis type: unspecified Qualified Code(s): J42 - Unspecified chronic bronchitis (5) Electrolyte imbalance Current Visit: Yes Status: Acute WNL Continue to follow (6) Protein calorie malnutrition Current Visit: Yes Status: Acute see a/p above Qualifiers: Protein-calorie malnutrition severity: severe Qualified Code(s): E43 - Unspecified severe protein-calorie malnutrition (7) Tachycardia Current Visit: Yes Status: Acute Per primary team. Switched metoprolol to IV Q6H. (8) Pneumonia Current Visit: Yes Status: Suspected Per primary team See above Qualifiers: Pneumonia type: aspiration pneumonia Laterality: right Lung location: lower lobe of lung Qualified Code(s): J69.0 - Pneumonitis due to inhalation of food and vomit Subjective Patient reports: no new complaints, still having pain, pain is less, voiding w/ o difficulty (PER MAXWELL), no flatus, no bowel movement, afebrile Narrative: denies n/v. Denies SOB. States "I feel a lot better than yesterday." Objective Vital Signs - Last 8 Hours Temp Pulse Resp BP Pulse Ox 05/11/18 06:42 98.3 F 88 16 106/57 97 05/11/18 03:40 97.9 F 106 15 107/63 92 Intake and Output 05/10/18 05/11/18 05/11/18 23:59 07:59 15:59 Intake Total 100 / 100 220 / 220 Output Total 580 / 580 510 / 510 Balance -480 / -480 -290 / -290 Intake: IV Fluids 100 / 100 220 / 220 Maxipime 2,000 MG In Water for 20 / 20 inj. (sterile) 20 ML @ 300 mls/ hr IVP Q8HR KATIE Rx#:[id number] Ofirmev 1,000 mg/100 ml 1,000 100 / 100 100 / 100 mg In 100 ml @ 400 mls/hr IVPB Q6H KATIE Rx#:[id number] Flagyl Premix 500 MG/100 ML 500 100 / 100 mg In 100 ml @ 100 mls/hr IVPB Q8HR KATIE Rx#:[id number] Oral 0 / 0 0 / 0 Output: Catheter 350 / 350 300 / 300 Gastric Drainage 100 / 100 Wound Drainage 230 / 230 110 / 110 Left Abdomen 120 / 120 110 / 110 Other: Meal NPO Percent of Meal Consumed 0% Weight 76.9 kg Blood Glucose* 170 165 Patient Weight 05/11/18 23:59 Weight 76.9 kg VITAL SIGNS: Reviewed. See [facility] GENERAL: In no apparent distress. HEENT: Normocephalic, atraumatic, extraocular motions intact, oropharynx is pink and moist, there is no neck adenopathy or JVD noted. CHEST/RESPIRATORY: The thorax is free from signs of trauma. Lung sounds: Decreased and course CARDIAC: tachy rate and rhythm. Normal S1 and S2, VASCULAR: general Edema. 2+ peripheral pulses. ABDOMEN: soft, expected postoperative tenderness, significant decrease in distention, absent bowel sounds INCISION: Surgical incision is clean, dry, and intact. There are no signs of cellulitis or infection noted. WOUNDS/DRAINS: FROILAN drain with 150 ml Serous fluid today. NG [id number] ml bilious output. MUSCULOSKELETAL: Generalized deconditioning noted NEUROLOGIC EXAM: Alert and oriented x 3. Speech normal. Follows commands. PSYCHIATRIC: Mood normal. SKIN: No rash or lesions. - Labs 05/11/18 04:03 05/11/18 04:03 Diabetes panel 05/11/18 Range/Units 04:03 Sodium 130 L (136-145) mEq/L Potassium 4.7 (3.5-5.1) mEq/L Chloride 104 (98-107) mEq/L Carbon Dioxide 20 L (23-29) mEq/L BUN 27 H (8-23) mg/dL Creatinine 0.47 L (0.70-1.30) mg/dL Glucose 134 H (70-105) mg/dL Calcium 7.4 L (8.6-10.3) mg/dL Calcium panel 05/11/18 Range/Units 04:03 Calcium 7.4 L (8.6-10.3) mg/dL Phosphorus 3.8 (2.7-4.5) mg/dL Pituitary panel 05/11/18 Range/Units 04:03 Sodium 130 L (136-145) mEq/L Potassium 4.7 (3.5-5.1) mEq/L Chloride 104 (98-107) mEq/L Carbon Dioxide 20 L (23-29) mEq/L BUN 27 H (8-23) mg/dL Creatinine 0.47 L (0.70-1.30) mg/dL Glucose 134 H (70-105) mg/dL Calcium 7.4 L (8.6-10.3) mg/dL Adrenal panel 05/11/18 Range/Units 04:03 Sodium 130 L (136-145) mEq/L Potassium 4.7 (3.5-5.1) mEq/L Chloride 104 (98-107) mEq/L Carbon Dioxide 20 L (23-29) mEq/L BUN 27 H (8-23) mg/dL Creatinine 0.47 L (0.70-1.30) mg/dL Glucose 134 H (70-105) mg/dL Calcium 7.4 L (8.6-10.3) mg/dL - VTE Documentation of Mechanical Device: Intermittent pneumatic compression device Consult Discharge Plan - Plan Referrals: Breanna Ocampo CNP [Advanced Practice Nurse] - 05/15/18 1:30 pm
--- NOTE | 2018-05-11 10:01 | Internal Med Progress Note ---
<Keeley Rivera P - Last Filed: 05/11/18 16:43> Hospitalist Progress Note - Encounter Date of Encounter: 05/11/18 Time of Encounter: 09:30 - Subjective Interval History: This 67 years old male is admitted for pneumonia and high grade small bowel obstruction transition point in Umbilical hernia, Tachycardia, NUNU , COPD, Lung nodule . He has done Robotic incisional hernia repair on 04/28 . Recently he developed distention of abdomen and generalized pain in whole abdomen . He has generalized abdominal pain , so exploratory laparotomy and lysis of adhesion done done yesterday. He developed hematuria , so Urologist consulted , heparin drip on hold and now improving . He has mild cough with whitish productive sputum. He denies any dyspnoea , fever , sweating . He thinks that it has been much better today as compared to yesterday after bowel surgery. - Exam Vitals: Temp Pulse Resp BP Pulse Ox 98.3 F 88 16 106/57 97 05/11/18 06:42 05/11/18 06:42 05/11/18 06:42 05/11/18 06:42 05/11/18 06:42 Exam: General appearance: Present: cooperative, A&O X 2 (issues with memory occasionally, likely due to acute illness), no acute distress, answers questions appropriately - Head Head exam: Present: normal inspection, normocephalic - Respiratory Additional comments: Chest expansion good both side, air entry is equal but slightly diminished air entry at lower chest bilaterally - Cardiovascular Additional comments: S1 S2 no murmur or any added sound , no JVD - GI/Abdominal Additional comments: Soft , warm , slightly distended abdomen with sluggish bowel sound. Swelling and redness in Umbilicus area, no sign of wound area infection,no oranomegaly - Psychiatric Psychiatric exam: Present: anxious, normal mood - Assessment and Plan (1) COPD (chronic obstructive pulmonary disease) Current Visit: Yes Status: Chronic Assessment and Plan: Not in acute exacerbation. Continue when necessary bronchodilators, supplemental oxygen. (2) Umbilical hernia Current Visit: Yes Status: Acute Assessment and Plan: Umbilical hernia mechanically reduced in ED. NGT decompression currently for SBO. s/p surgical repair 04/28/18. follow surgery recommendations. (3) NUNU (acute kidney injury) Current Visit: Yes Status: Resolved (4) SIRS (systemic inflammatory response syndrome) Current Visit: Yes Status: Resolved (5) Small bowel obstruction Current Visit: Yes Status: Acute Assessment and Plan: Initial CT abdomen/pelvis showed high-grade small bowel obstruction with transition point in the umbilical hernia. Surgery has been consulted, patient underwent Robotic Recurrent Incisional hernia repair mesh on 04/28/18. Continuous distended abdomen and sluggish bowel sound for last a few days. Exploratory laparotomy done yesterday with Lysis of adhesion on 05/10 Now abdominal distension has been much better , bowel sound present , minimal tenderness (6) Electrolyte imbalance Current Visit: Yes Status: Acute Assessment and Plan: He has had hypokalemia and hypomagnesemia, now it has been improved with supplement with IV and PO; still Serum sodium in in lower range , we will monitor regularly (7) Essential hypertension Current Visit: Yes Status: Chronic (8) Pneumonia Current Visit: Yes Status: Suspected Assessment and Plan: suspected per CT chest and leukocytosis, fever spike; improving now; suspect fever is from atelectasis; continue IV antibiotics as below; supportive care and supplemental O2; (9) Lung nodule seen on imaging study Current Visit: Yes Status: Chronic Assessment and Plan: CT chest revealed an incidental finding of 1.2 x 1 cm spiculated nodule in the right upper lobe, suspicious for malignancy. Also shows 1.4 cm left adrenal nodule. Patient has been a heavy smoker, quit now. Oncology consult appreciated- will f/up as outpatient with PET CT and possible biopsy; - Time Spent with Patient Total time spent is greater than 50% in coordination of care (as documented) at patient's floor/unit and/or counseling patient: Internal Medicine: Result - Labs CBC & Chem 7: 05/11/18 04:03 05/11/18 04:03 Labs: Short CBC 05/11/18 Range/Units 04:03 WBC 15.0 H (4.3-11.1) K/mcL Hgb 9.0 L (12.9-16.9) g/dL Hct 27.0 L (37.5-50.1) % Plt Count 498 H (140-400) K/mcL Neutrophils # 12.9 H (1.6-8.9) K/mcL BMP 05/11/18 04:03 Sodium 130 L Potassium 4.7 Chloride 104 Carbon Dioxide 20 L BUN 27 H Creatinine 0.47 L Glucose 134 H Calcium 7.4 L - ABG Interpretation ABG results: PT/INR, D-dimer PT 13.2 Seconds (9.4-12.1) H 04/26/18 13:34 - VTE Documentation of Mechanical Device: Intermittent pneumatic compression device Consult Discharge Plan - Plan Referrals: Breanna Ocampo [employer] [Advanced Practice Nurse] - 05/15/18 1:30 pm <Lise Daley - Last Filed: 05/11/18 17:41> Hospitalist Progress Note - Encounter Date of Encounter: 05/11/18 - Exam Vitals: Temp Pulse Resp BP Pulse Ox 98.1 F 71 20 126/69 97 05/11/18 15:01 05/11/18 15:01 05/11/18 16:53 05/11/18 15:01 05/11/18 16:53 - Assessment and Plan (1) COPD (chronic obstructive pulmonary disease) Current Visit: Yes Status: Chronic (2) Umbilical hernia Current Visit: Yes Status: Acute (3) NUNU (acute kidney injury) Current Visit: Yes Status: Resolved (4) SIRS (systemic inflammatory response syndrome) Current Visit: Yes Status: Resolved (5) Small bowel obstruction Current Visit: Yes Status: Acute (6) Electrolyte imbalance Current Visit: Yes Status: Acute (7) Essential hypertension Current Visit: Yes Status: Chronic (8) Pneumonia Current Visit: Yes Status: Suspected (9) Lung nodule seen on imaging study Current Visit: Yes Status: Chronic - Summary of Assessment and Plan Summary of Assessment and Plan: I examined this patient and my medical decision-making was reviewed with the Resident Physician. I agree with the documented findings, disposition and treatment plan as described except to the extent set forth below. - Time Spent with Patient Total time spent is greater than 50% in coordination of care (as documented) at patient's floor/unit and/or counseling patient: Internal Medicine: Result - Labs CBC & Chem 7: 05/11/18 04:03 05/11/18 04:03 Labs: Short CBC 05/11/18 Range/Units 04:03 WBC 15.0 H (4.3-11.1) K/mcL Hgb 9.0 L (12.9-16.9) g/dL Hct 27.0 L (37.5-50.1) % Plt Count 498 H (140-400) K/mcL Neutrophils # 12.9 H (1.6-8.9) K/mcL BMP 05/11/18 04:03 Sodium 130 L Potassium 4.7 Chloride 104 Carbon Dioxide 20 L BUN 27 H Creatinine 0.47 L Glucose 134 H Calcium 7.4 L - ABG Interpretation ABG results: PT/INR, D-dimer PT 13.2 Seconds (9.4-12.1) H 04/26/18 13:34 <Keeley Rivera P - Last Filed: 05/11/18 16:43> (1) COPD (chronic obstructive pulmonary disease) Qualifiers: COPD type: chronic bronchitis Chronic bronchitis type: unspecified Qualified Code(s): J42 - Unspecified chronic bronchitis (2) Umbilical hernia Qualifiers: Obstruction and gangrene presence: with obstruction but without gangrene Qualified Code(s): K42.0 - Umbilical hernia with obstruction, without gangrene (8) Pneumonia Qualifiers: Pneumonia type: aspiration pneumonia Laterality: right Lung location: lower lobe of lung <Lise Daley - Last Filed: 05/11/18 17:41> (1) COPD (chronic obstructive pulmonary disease) Qualifiers: COPD type: chronic bronchitis Chronic bronchitis type: unspecified Qualified Code(s): J42 - Unspecified chronic bronchitis (2) Umbilical hernia Qualifiers: Obstruction and gangrene presence: with obstruction but without gangrene Qualified Code(s): K42.0 - Umbilical hernia with obstruction, without gangrene (8) Pneumonia Qualifiers: Pneumonia type: aspiration pneumonia Laterality: right Lung location: lower lobe of lung
[2018-05-11] MEDS: Ipratropium/Albuterol Neb 3 ML IH PRN (16:53)
[2018-05-11] MEDS ORDERED: Clinimix E 5%-15% SOLUTION 2,000 ML with MVI, adult with vitamin K 10 ML, Trace Eleme... IVC SCH (17:00)
[2018-05-11] MEDS ORDERED: Calcium Gluconate 2,000 MG in 0.9 % Sodium Chloride 100 ML IVPB ONE (17:39)
[2018-05-11] MEDS: Ipratropium/Albuterol Neb 3 ML IH SCH ×2 (20:03→23:24)
[2018-05-12] MEDS: OXYCODONE Oral CONC 10 MG/0.5 ML ORAL.SYG SL PRN ×2 (02:44→10:41)
[2018-05-12 04:01] LABS: Basophils # 0.1 K/mcL (0.0-0.2); Basophils % 0.3 %; Eosinophils # 0.4 K/mcL (0.0-0.6); Eosinophils % 2.4 %; Hematocrit 23.8 % (37.5-50.1); Hemoglobin 8.1 g/dL (12.9-16.9); Immature Granulocytes % 1.8 % (0-4); Immature Platelets 5.2 % (1.1-6.1); Lymphocytes # 1.2 K/mcL (0.6-4.6); Lymphocytes % 6.4 %; Mean Corpuscular Hemoglobin 30.6 pg (28.0-33.3); Mean Corpuscular Volume 89.8 fL (83.0-100.0); Mean Platelet Volume 10.6 fL (9.4-12.4); Monocytes # 1.4 K/mcL (0.0-1.3); Monocytes % 7.8 %; Neutrophils # 14.7 K/mcL (1.6-8.9); Platelet Count 470 K/mcL (140-400); Red Blood Count 2.65 M/mcL (4.19-5.50); Red Cell Distribution Width 15.4 % (11.5-14.5); Segmented Neutrophils % 81.3 %
[2018-05-12] MEDS: Acetaminophen IV 1,000 MG/100 ML INFUS..BTL IVPB SCH ×4 (04:19→21:31)
[2018-05-12] MEDS: Ipratropium/Albuterol Neb 3 ML IH SCH ×5 (04:44→20:15)
[2018-05-12 04:58] LABS: BUN/Creatinine Ratio 64 (6-26); Blood Urea Nitrogen 25 mg/dL (8-23); Calcium 7.9 mg/dL (8.6-10.3); Carbon Dioxide 20 mEq/L (23-29); Chloride 104 mEq/L (98-107); Glucose 109 mg/dL (70-105); Osmolality,Calculated 275 (280-300); Potassium 4.3 mEq/L (3.5-5.1); Sodium 130 mEq/L (136-145); eGFR For Non-African Americans > 60 (> 60)
[2018-05-12] MEDS: Metoclopramide 10 MG/2 ML VIAL IVP SCH ×3 (06:02→16:50)
[2018-05-12] MEDS: *HR* Metoprolol 5 MG/5 ML VIAL IVP SCH ×3 (06:02→16:50)
[2018-05-12] MEDS: *HR* Heparin 5,000 UNIT/ML VIAL SQ SCH ×2 (06:02→17:09)
[2018-05-12] MEDS: Pantoprazole 40 MG VIAL IVP SCH (06:02)
[2018-05-12] MEDS: Ketorolac 15 MG/ML VIAL IVP SCH ×4 (06:02→17:04)
[2018-05-12] MEDS ORDERED: Furosemide 40 MG/4 ML VIAL IVP ONE (08:27)
--- NOTE | 2018-05-12 09:50 | Internal Med Progress Note ---
<Keeley Rivera P - Last Filed: 05/12/18 17:12> Date of Encounter: 05/12/18 Time of Encounter: 10:00 - Assessment and plan (1) COPD (chronic obstructive pulmonary disease) Current Visit: Yes Status: Chronic Assessment and plan: He is a chronic case of COPD , has mild productive cough , but cough is better than before . He has on and off Tachycardia fluctutaes 125 to 63 He is on Ceftriaxone 1 gram IV antibiotics . His xray chest shows minimal pleural effusion both side and mild pulmonary edema that might be the reason for SOB He has developed mild pulmonary oedema , probably due to fluid over load Qualifiers: COPD type: chronic bronchitis Chronic bronchitis type: unspecified Qualified Code(s): J42 - Unspecified chronic bronchitis (2) Umbilical hernia Current Visit: Yes Status: Acute Qualifiers: Obstruction and gangrene presence: with obstruction but without gangrene Qualified Code(s): K42.0 - Umbilical hernia with obstruction, without gangrene (3) NUNU (acute kidney injury) Current Visit: Yes Status: Resolved (4) SIRS (systemic inflammatory response syndrome) Current Visit: Yes Status: Resolved (5) Small bowel obstruction Current Visit: Yes Status: Acute Assessment and plan: Small bowel obstruction with transition point at Umbilical hernia Robotic incisional hernia repair done on 04/28 . He is on metronidazone and Ceftriaxone NG tube decompression done yesterday , NG tube is in situ. Abdominal distension is less as compared to before and bowel sound sluggish. CT chest shows small bowel distention measures upto 5.5 cm and it has been worse over past 4-5 days . Exploratory laparotomy done 05/10 to address SBO and suspected bowel perforation. His abdominal complaints has been much better after bowel surgery (6) Electrolyte imbalance Current Visit: Yes Status: Acute Assessment and plan: He has had hypokalemia and hypomagnesemia, now it has been improved with supplement with IV and PO; still Serum sodium in in lower range , we will monitor regularly (7) Essential hypertension Current Visit: Yes Status: Chronic (8) Pneumonia Current Visit: Yes Status: Suspected Assessment and plan: Suspected pneumonia due to atelectasis , is on IV antibiotics Ceftriaxone 1 gram IV and supplemental Oxygen He states that the cough is better today . Recent Xray shows mild pulmonary oedema , blunting of costophrenic angles both side and minimal pleural effusion both side He has on and off tachycardia, but no fever Blood count : 18.1 with Neutrophils 14.7 this morning We will monotor regularly Qualifiers: Pneumonia type: due to unspecified organism Laterality: right Lung location: lower lobe of lung Qualified Code(s): J18.1 - Lobar pneumonia, unspecified organism (9) Lung nodule seen on imaging study Current Visit: Yes Status: Chronic Assessment and plan: CT chest revealed an incidental finding of 1.2 x 1 cm spiculated nodule in the right upper lobe, suspicious for malignancy. Also shows 1.4 cm left adrenal nodule. Patient has been a heavy smoker, quit now. Oncology consult appreciated- will f/up as outpatient with PET CT and possible biopsy; (10) DVT (deep venous thrombosis) Current Visit: Yes Status: Acute Assessment and plan: This patient has mild swelling in left leg with out much pain and redness , but right leg is normal We will monitor for DVT o any throboembolism USG both leg Qualifiers: Qualified Code(s): I82.409 - Acute embolism and thrombosis of unspecified deep veins of unspecified lower extremity - Subjective Interval history: This 67 years old male is admitted for pneumonia and high grade small bowel obstruction transition point in Umbilical hernia, Tachycardia, NUNU , COPD, Lung nodule . Today is 16th post admission day.He has done Robotic incisional hernia repair on 04/28 . Recently he developed distention of abdomen and generalized pain in whole abdomen . He has generalized abdominal pain , so exploratory laparotomy and lysis of adhesion done done on 05/10. He developed hematuria , so Urologist consulted, heparin drip on hold and now improving . He has mild cough with whitish productive sputum. He denies any dyspnoea , fever , sweating . He thinks that it has been much better today as compared to yesterday after bowel surgery. He has fluctuating heart rate from 125 to 63 and mild swelling left leg . We will monitor for suspected DVT and plan for Doppler B/L lower leg. - Constitutional Vitals: Temp Pulse Resp BP Pulse Ox 98.2 F 63 20 114/65 96 05/12/18 07:17 05/12/18 07:17 05/12/18 07:40 05/12/18 07:17 05/12/18 07:40 General appearance: Present: cooperative, A&O X 2 (issues with memory occasionally, likely due to acute illness), no acute distress, answers questions appropriately - Head Head exam: Present: atraumatic, normal inspection, normocephalic - Neck Neck exam general surgery: Present: normal inspection, supple Additional comments: No JVD - Respiratory Additional comments: Chest expansion is good both side, diminished air entry both right and left lower lobe , scattered rales at lower lobes both side, occasional wheezes - Cardiovascular Additional comments: Normal rate and rhythm, S1S2 normal, no murmur or added sound - GI/Abdominal Additional comments: Soft , mildly distended, no rigidity and guarding no wound site infection, BS present but hypoactive, - Neurological Exam Neurological exam: Present: alert, oriented X3, no focal deficits Internal Medicine: Result - Labs CBC & Chem 7: 05/12/18 03:35 05/12/18 03:35 Labs: Short CBC 05/12/18 Range/Units 03:35 WBC 18.1 H (4.3-11.1) K/mcL Hgb 8.1 L (12.9-16.9) g/dL Hct 23.8 L (37.5-50.1) % Plt Count 470 H (140-400) K/mcL Neutrophils # 14.7 H (1.6-8.9) K/mcL BMP 05/12/18 03:35 Sodium 130 L Potassium 4.3 Chloride 104 Carbon Dioxide 20 L BUN 25 H Creatinine 0.39 L Glucose 109 H Calcium 7.9 L - ABG Interpretation ABG results: PT/INR, D-dimer PT 13.2 Seconds (9.4-12.1) H 04/26/18 13:34 - VTE Documentation of Mechanical Device: Intermittent pneumatic compression device Consult Discharge Plan - Plan Referrals: Breanna Ocampo CNP [Advanced Practice Nurse] - 05/15/18 1:30 pm <Lise Daley - Last Filed: 05/12/18 19:43> Date of Encounter: 05/12/18 - Assessment and plan (1) COPD (chronic obstructive pulmonary disease) Current Visit: Yes Status: Chronic Qualifiers: COPD type: chronic bronchitis Chronic bronchitis type: unspecified Qualified Code(s): J42 - Unspecified chronic bronchitis (2) Umbilical hernia Current Visit: Yes Status: Acute Qualifiers: Obstruction and gangrene presence: with obstruction but without gangrene Qualified Code(s): K42.0 - Umbilical hernia with obstruction, without gangrene (3) NUNU (acute kidney injury) Current Visit: Yes Status: Resolved (4) SIRS (systemic inflammatory response syndrome) Current Visit: Yes Status: Resolved (5) Small bowel obstruction Current Visit: Yes Status: Acute (6) Electrolyte imbalance Current Visit: Yes Status: Acute (7) Essential hypertension Current Visit: Yes Status: Chronic (8) Pneumonia Current Visit: Yes Status: Suspected Qualifiers: Pneumonia type: due to unspecified organism Laterality: right Lung location: lower lobe of lung Qualified Code(s): J18.1 - Lobar pneumonia, unspecified organism (9) Lung nodule seen on imaging study Current Visit: Yes Status: Chronic - Constitutional Vitals: Temp Pulse Resp BP Pulse Ox 98.1 F 113 17 129/63 94 05/12/18 19:19 05/12/18 19:19 05/12/18 19:19 05/12/18 19:19 05/12/18 19:19 Internal Medicine: Result - Labs CBC & Chem 7: 05/12/18 03:35 05/12/18 03:35 Labs: Short CBC 05/12/18 Range/Units 03:35 WBC 18.1 H (4.3-11.1) K/mcL Hgb 8.1 L (12.9-16.9) g/dL Hct 23.8 L (37.5-50.1) % Plt Count 470 H (140-400) K/mcL Neutrophils # 14.7 H (1.6-8.9) K/mcL BMP 05/12/18 03:35 Sodium 130 L Potassium 4.3 Chloride 104 Carbon Dioxide 20 L BUN 25 H Creatinine 0.39 L Glucose 109 H Calcium 7.9 L - ABG Interpretation ABG results: PT/INR, D-dimer PT 13.2 Seconds (9.4-12.1) H 04/26/18 13:34 - Attending Attestation I examined this patient and my medical decision-making was reviewed with the Resident Physician. I agree with the documented findings, disposition and treatment plan as described except to the extent set forth below.
[2018-05-12] MEDS: MetroNIDAZOLE 500 MG/100 ML 500 MG/100 ML BAG IVPB SCH ×2 (09:55→16:59)
[2018-05-12] MEDS: cefTRIAXone 1,000 MG in Water for inj. (sterile) 20 ML 10 ML IVP SCH (09:55)
--- NOTE | 2018-05-12 10:23 | General Surgery Progress Note ---
Date of Encounter: 05/12/18 Time of Encounter: 10:20 - Assessment and Plan (1) Umbilical hernia Current Visit: Yes Status: Acute Bowel rest NG tube to LIWS NPO except for ice chips for comfort Scheded Ofirmev and toradol, SL oxycodone for breaktrough pain Continue aggressive pulm toileting and AccuPap per RT Serial abdominal exams .FROILAN drain care: Do not let the FROILAN dangle from the body. Please attach FROILAN to gown with safety pin. Strip lines Q8 hours at minimum. Maintain FROILAN bulb to suction. Report any changes in FROILAN output. Continue IV Atbx as per primary for pneumonia Continue TPN for severe protein malnutrition Continue Acosta for accurate intake and output Daily standing scale weights only continue PT/OT Out of bed to chair at least TID Qualifiers: Obstruction and gangrene presence: with obstruction but without gangrene Qualified Code(s): K42.0 - Umbilical hernia with obstruction, without gangrene (2) Fever, unknown origin Current Visit: Yes Status: Resolved (3) Ileus, postoperative Current Visit: Yes Status: Acute see above (4) COPD (chronic obstructive pulmonary disease) Current Visit: Yes Status: Chronic per primary team Qualifiers: COPD type: chronic bronchitis Chronic bronchitis type: unspecified Qualified Code(s): J42 - Unspecified chronic bronchitis Subjective Patient reports: feels better, no flatus (Patient states the he is feeling some better from yesterday. But he is still in some pain. ), no bowel movement Objective Vital Signs - Last 8 Hours Temp Pulse Resp BP Pulse Ox 05/12/18 07:40 20 96 05/12/18 07:17 98.2 F 63 16 114/65 97 05/12/18 05:12 98.4 F 120 16 115/67 92 05/12/18 04:46 18 99 Intake and Output 05/11/18 05/12/18 05/12/18 23:59 07:59 15:59 Intake Total 420 / 420 470 / 470 Output Total 800 / 800 620 / 620 Balance -380 / -380 -150 / -150 Intake: IV Fluids 420 / 420 470 / 470 Maxipime 2,000 MG In Water for 20 / 20 inj. (sterile) 20 ML @ 300 mls/ hr IVP Q8HR [facility] Rx#:[id number] Ofirmev 1,000 mg/100 ml 1,000 300 / 300 100 / 100 mg In 100 ml @ 400 mls/hr IVPB Q6H [facility] Rx#:[id number] Intralipid 20% 250 ML @ 21 mls/ 250 / 250 hr IVPB DAILY@1700 [facility] Rx#: [id number] Flagyl Premix 500 MG/100 ML 500 100 / 100 100 / 100 mg In 100 ml @ 100 mls/hr IVPB Q8HR [facility] Rx#:[id number] Oral 0 / 0 0 / 0 Output: Gastric Tube Lavage Amount 200 / 200 R Nares 200 / 200 Catheter 450 / 450 400 / 400 Gastric Drainage 300 / 300 R Nares 300 / 300 Wound Drainage 50 / 50 20 / 20 Left Abdomen 50 / 50 20 / 20 Other: # Bowel Movements 0 Blood Glucose* 139 149 - General physical appearance well developed, well nourished, chronically ill - Respiratory normal expansion, normal respiratory effort, clear to auscultation - Cardiovascular Cardiovascular exam: Present: RRR, no murmurs/rubs/gallops - Abdomen Abdomen: Present: bowel sounds present, distended, tender Additional Comments: FROILAN drain draining mainly yellow serous but with some serosanginous drainage in the tube and on top of the serous drainage - Integumentary no rash, no growths, no abnormal pigmentation - Musculoskeletal normal posture - Psychiatric oriented to time, oriented to person, oriented to place - Labs 05/12/18 03:35 05/12/18 03:35 Diabetes panel 05/12/18 05/12/18 Range/Units 03:35 03:35 Sodium 130 L (136-145) mEq/L Potassium 4.3 (3.5-5.1) mEq/L Chloride 104 (98-107) mEq/L Carbon Dioxide 20 L (23-29) mEq/L BUN 25 H (8-23) mg/dL Creatinine 0.39 L (0.70-1.30) mg/dL Glucose 109 H (70-105) mg/dL Calcium 7.9 L (8.6-10.3) mg/dL Triglycerides 101 (< 150) mg/dL Calcium panel 05/12/18 05/12/18 Range/Units 03:35 03:35 Calcium 7.9 L (8.6-10.3) mg/dL Phosphorus 3.6 (2.7-4.5) mg/dL Pituitary panel 05/12/18 Range/Units 03:35 Sodium 130 L (136-145) mEq/L Potassium 4.3 (3.5-5.1) mEq/L Chloride 104 (98-107) mEq/L Carbon Dioxide 20 L (23-29) mEq/L BUN 25 H (8-23) mg/dL Creatinine 0.39 L (0.70-1.30) mg/dL Glucose 109 H (70-105) mg/dL Calcium 7.9 L (8.6-10.3) mg/dL Adrenal panel 05/12/18 Range/Units 03:35 Sodium 130 L (136-145) mEq/L Potassium 4.3 (3.5-5.1) mEq/L Chloride 104 (98-107) mEq/L Carbon Dioxide 20 L (23-29) mEq/L BUN 25 H (8-23) mg/dL Creatinine 0.39 L (0.70-1.30) mg/dL Glucose 109 H (70-105) mg/dL Calcium 7.9 L (8.6-10.3) mg/dL - VTE Documentation of Mechanical Device: Intermittent pneumatic compression device Consult Discharge Plan - Plan Referrals: Breanna Ocampo CNP [Advanced Practice Nurse] - 05/15/18 1:30 pm
[2018-05-12] MEDS ORDERED: Clinimix E 5%-15% SOLUTION 2,000 ML with MVI, adult with vitamin K 10 ML, Trace Eleme... IVC SCH (17:00)
[2018-05-13] MEDS: *HR* Metoprolol 5 MG/5 ML VIAL IVP SCH ×6 (00:02→23:52)
[2018-05-13] MEDS: MetroNIDAZOLE 500 MG/100 ML 500 MG/100 ML BAG IVPB SCH ×4 (00:03→23:49)
[2018-05-13] MEDS: Metoclopramide 10 MG/2 ML VIAL IVP SCH ×6 (00:03→23:53)
[2018-05-13] MEDS: Ipratropium/Albuterol Neb 3 ML IH SCH ×2 (00:20→04:50)
[2018-05-13] MEDS: Ketorolac 15 MG/ML VIAL IVP SCH ×6 (00:29→23:53)
[2018-05-13] MEDS: Chloraseptic Spray 177 ML BOTTLE MM PRN (00:33)
[2018-05-13] MEDS: OXYCODONE Oral CONC 10 MG/0.5 ML ORAL.SYG SL PRN ×2 (03:31→10:02)
[2018-05-13] MEDS: Acetaminophen IV 1,000 MG/100 ML INFUS..BTL IVPB SCH ×5 (03:32→22:35)
[2018-05-13 04:16] LABS: Basophils # 0.1 K/mcL (0.0-0.2); Basophils % 0.4 %; Eosinophils # 0.6 K/mcL (0.0-0.6); Eosinophils % 3.2 %; Hematocrit 22.1 % (37.5-50.1); Hemoglobin 7.5 g/dL (12.9-16.9); Immature Granulocytes % 2.9 % (0-4); Lymphocytes # 1.2 K/mcL (0.6-4.6); Lymphocytes % 6.3 %; Mean Corpuscular HGB Conc 33.9 g/dL (31.6-35.5); Mean Corpuscular Hemoglobin 29.6 pg (28.0-33.3); Mean Corpuscular Volume 87.4 fL (83.0-100.0); Mean Platelet Volume 11.2 fL (9.4-12.4); Monocytes # 1.3 K/mcL (0.0-1.3); Monocytes % 6.8 %; Neutrophils # 14.9 K/mcL (1.6-8.9); Platelet Count 427 K/mcL (140-400); Red Blood Count 2.53 M/mcL (4.19-5.50); Red Cell Distribution Width 15.4 % (11.5-14.5); Segmented Neutrophils % 80.4 %
[2018-05-13 04:32] LABS: Magnesium 1.9 mg/dL (1.6-2.6)
[2018-05-13 04:33] LABS: BUN/Creatinine Ratio 54 (6-26); Blood Urea Nitrogen 20 mg/dL (8-23); Calcium 7.9 mg/dL (8.6-10.3); Carbon Dioxide 21 mEq/L (23-29); Chloride 101 mEq/L (98-107); Glucose 101 mg/dL (70-105); Osmolality,Calculated 275 (280-300); Potassium 3.9 mEq/L (3.5-5.1); Sodium 131 mEq/L (136-145); eGFR For Non-African Americans > 60 (> 60)
[2018-05-13] MEDS: Pantoprazole 40 MG VIAL IVP SCH (05:59)
[2018-05-13] MEDS: *HR* Heparin 5,000 UNIT/ML VIAL SQ SCH ×2 (05:59→18:42)
--- NOTE | 2018-05-13 08:13 | General Surgery Progress Note ---
<Leilani Donaldson E - Last Filed: 05/13/18 11:16> Date of Encounter: 05/13/18 Time of Encounter: 08:11 - Assessment and Plan (1) Umbilical hernia Current Visit: Yes Status: Acute Bowel rest NG tube to LIWS NPO except for ice chips for comfort Scheded Ofirmev and toradol, SL oxycodone for breaktrough pain Continue aggressive pulm toileting and AccuPap per RT, Continue Duoneb for Pulmonary function Serial abdominal exams .FROILAN drain care: Do not let the FROILAN dangle from the body. Please attach FROILAN to gown with safety pin. Strip lines Q8 hours at minimum. Maintain FROILAN bulb to suction. Report any changes in FROILAN output. Continue IV Atbx as per primary for pneumonia Continue TPN for severe protein malnutrition Discontinue Crocker Daily standing scale weights only continue PT/OT Out of bed to chair at least TID Qualifiers: Obstruction and gangrene presence: with obstruction but without gangrene Qualified Code(s): K42.0 - Umbilical hernia with obstruction, without gangrene (2) Fever, unknown origin Current Visit: Yes Status: Resolved (3) Ileus, postoperative Current Visit: Yes Status: Acute see above (4) COPD (chronic obstructive pulmonary disease) Current Visit: Yes Status: Chronic per primary team Qualifiers: COPD type: chronic bronchitis Chronic bronchitis type: unspecified Qualified Code(s): J42 - Unspecified chronic bronchitis Subjective Patient reports: pain is less, no flatus (Pt is easily awoken. States he is feeling some better today. He states he has not passed any gas or had a bowel movement yet. Falls back asleep during exam), no bowel movement Objective Vital Signs - Last 8 Hours Temp Pulse Resp BP Pulse Ox 05/13/18 06:56 99.2 F 112 18 121/63 95 05/13/18 04:50 17 96 05/13/18 03:40 98.4 F 109 15 151/77 96 Intake and Output 05/12/18 05/13/18 05/13/18 23:59 07:59 15:59 Intake Total 300 / 300 460 / 460 Output Total 480 / 480 1260 / 1260 Balance -180 / -180 -800 / -800 Intake: IV Fluids 300 / 300 460 / 460 Rocephin 1,000 MG In Water for 10 / 10 inj. (sterile) 10 ML @ 600 mls/ hr IVP DAILY [facility] Rx#:[id number] Ofirmev 1,000 mg/100 ml 1,000 200 / 200 100 / 100 mg In 100 ml @ 400 mls/hr IVPB Q6H [facility] Rx#:[id number] Intralipid 20% 250 ML @ 21 mls/ 250 / 250 hr IVPB DAILY@1700 [facility] Rx#: [id number] Flagyl Premix 500 MG/100 ML 500 100 / 100 100 / 100 mg In 100 ml @ 100 mls/hr IVPB Q8HR [facility] Rx#:[id number] Oral 0 / 0 0 / 0 Output: Catheter 450 / 450 800 / 800 Gastric Drainage 450 / 450 R Nares 450 / 450 Wound Drainage Left Abdomen Other: Meal NPO Percent of Meal Consumed 0% Blood Glucose* 95 - General physical appearance well developed, well nourished, moderate pain - Respiratory normal expansion, normal respiratory effort, clear to auscultation - Cardiovascular Cardiovascular exam: Present: RRR, no murmurs/rubs/gallops - Abdomen Abdomen: Present: bowel sounds present, soft, tender - Incision Incision: Present: clean and dry, intact - Integumentary no rash, no growths, no abnormal pigmentation - Musculoskeletal normal posture - Psychiatric oriented to time, oriented to person, oriented to place - Labs 05/13/18 04:00 05/13/18 03:35 Diabetes panel 05/13/18 Range/Units 03:35 Sodium 131 L (136-145) mEq/L Potassium 3.9 (3.5-5.1) mEq/L Chloride 101 (98-107) mEq/L Carbon Dioxide 21 L (23-29) mEq/L BUN 20 (8-23) mg/dL Creatinine 0.37 L (0.70-1.30) mg/dL Glucose 101 (70-105) mg/dL Calcium 7.9 L (8.6-10.3) mg/dL Calcium panel 05/13/18 05/13/18 Range/Units 03:35 03:35 Calcium 7.9 L (8.6-10.3) mg/dL Phosphorus 4.0 (2.7-4.5) mg/dL Pituitary panel 05/13/18 Range/Units 03:35 Sodium 131 L (136-145) mEq/L Potassium 3.9 (3.5-5.1) mEq/L Chloride 101 (98-107) mEq/L Carbon Dioxide 21 L (23-29) mEq/L BUN 20 (8-23) mg/dL Creatinine 0.37 L (0.70-1.30) mg/dL Glucose 101 (70-105) mg/dL Calcium 7.9 L (8.6-10.3) mg/dL Adrenal panel 05/13/18 Range/Units 03:35 Sodium 131 L (136-145) mEq/L Potassium 3.9 (3.5-5.1) mEq/L Chloride 101 (98-107) mEq/L Carbon Dioxide 21 L (23-29) mEq/L BUN 20 (8-23) mg/dL Creatinine 0.37 L (0.70-1.30) mg/dL Glucose 101 (70-105) mg/dL Calcium 7.9 L (8.6-10.3) mg/dL - VTE Documentation of Mechanical Device: Intermittent pneumatic compression device Consult Discharge Plan - Plan Referrals: Breanna Ocampo IT SERVICE CONTINUITY SUPERVISOR [Advanced Practice Nurse] - 05/15/18 1:30 pm <Sandeep Maharaj - Last Filed: 05/13/18 12:01> Date of Encounter: 05/13/18 Objective Vital Signs - Last 8 Hours Temp Pulse Resp BP Pulse Ox 05/13/18 10:32 98.1 F 119 18 122/74 94 05/13/18 10:20 19 94 05/13/18 06:56 99.2 F 112 18 121/63 95 05/13/18 04:50 17 96 Intake and Output 05/12/18 05/13/18 05/13/18 23:59 07:59 15:59 Intake Total 300 / 300 460 / 460 Output Total 480 / 480 1260 / 1260 350 / 350 Balance -180 / -180 -800 / -800 -350 / -350 Intake: IV Fluids 300 / 300 460 / 460 Rocephin 1,000 MG In Water for inj. (sterile) 10 ML @ 600 mls/ hr IVP DAILY [facility] Rx#:[id number] Ofirmev 1,000 mg/100 ml 1,000 200 / 200 100 / 100 mg In 100 ml @ 400 mls/hr IVPB Q6H [facility] Rx#:[id number] Intralipid 20% 250 ML @ 21 mls/ 250 / 250 hr IVPB DAILY@1700 [facility] Rx#: [id number] Flagyl Premix 500 MG/100 ML 500 100 / 100 100 / 100 mg In 100 ml @ 100 mls/hr IVPB Q8HR [facility] Rx#:[id number] Oral 0 / 0 0 / 0 Output: Urine 350 / 350 Catheter 450 / 450 800 / 800 Gastric Drainage 450 / 450 R Nares 450 / 450 Wound Drainage Left Abdomen Other: Meal NPO NPO Percent of Meal Consumed 0% Blood Glucose* 95 135 - Labs 05/13/18 04:00 05/13/18 03:35 Diabetes panel 05/13/18 Range/Units 03:35 Sodium 131 L (136-145) mEq/L Potassium 3.9 (3.5-5.1) mEq/L Chloride 101 (98-107) mEq/L Carbon Dioxide 21 L (23-29) mEq/L BUN 20 (8-23) mg/dL Creatinine 0.37 L (0.70-1.30) mg/dL Glucose 101 (70-105) mg/dL Calcium 7.9 L (8.6-10.3) mg/dL Calcium panel 05/13/18 05/13/18 Range/Units 03:35 03:35 Calcium 7.9 L (8.6-10.3) mg/dL Phosphorus 4.0 (2.7-4.5) mg/dL Pituitary panel 05/13/18 Range/Units 03:35 Sodium 131 L (136-145) mEq/L Potassium 3.9 (3.5-5.1) mEq/L Chloride 101 (98-107) mEq/L Carbon Dioxide 21 L (23-29) mEq/L BUN 20 (8-23) mg/dL Creatinine 0.37 L (0.70-1.30) mg/dL Glucose 101 (70-105) mg/dL Calcium 7.9 L (8.6-10.3) mg/dL Adrenal panel 05/13/18 Range/Units 03:35 Sodium 131 L (136-145) mEq/L Potassium 3.9 (3.5-5.1) mEq/L Chloride 101 (98-107) mEq/L Carbon Dioxide 21 L (23-29) mEq/L BUN 20 (8-23) mg/dL Creatinine 0.37 L (0.70-1.30) mg/dL Glucose 101 (70-105) mg/dL Calcium 7.9 L (8.6-10.3) mg/dL - Attending Attestation patient seen and examined; i have reviewed all labs, imaging, and notes, including this one. I agree with the above assessment and plan and wish to add the following... POD #3 s/p take back with SBR, R hemicolectomy; afebrile cont current pain regimen albuterol qhrs scheduled x 24 hrs, then PRN cont to monitor HR TPN, PPI, NPO (okay for swabs); cont NG tube d/c crocker catheter (pt has good UOP) cont DVT prophylaxis OOBTC replete lytes PRN
[2018-05-13] MEDS ORDERED: Furosemide 40 MG/4 ML VIAL IVP ONE (08:44)
--- NOTE | 2018-05-13 09:58 | Internal Med Progress Note ---
Hospitalist Progress Note - Encounter Date of Encounter: 05/14/18 Time of Encounter: 09:53 - Subjective Interval History: No acute events. - Exam Vitals: Temp Pulse Resp BP Pulse Ox 99.2 F 112 18 121/63 95 05/13/18 06:56 05/13/18 06:56 05/13/18 06:56 05/13/18 06:56 05/13/18 06:56 Exam: Gen: NAD, AAOx3 CVS: tachycardic, no mrg Lungs: decreased breath sounds at bases, Rales Abd: soft, nt/nd, normal bowel sounds Ext: 1-2+ left lower extremity edema, right LE no edema. - Assessment and Plan (1) COPD (chronic obstructive pulmonary disease) Current Visit: Yes Status: Chronic Assessment and Plan: Not in acute exacerbation. Continue Xopenex as needed. (2) Umbilical hernia Current Visit: Yes Status: Acute Assessment and Plan: Umbilical hernia mechanically reduced in ED on admission. s/p surgical repair 04/28/18. follow surgery recommendations. (3) NUNU (acute kidney injury) Current Visit: Yes Status: Resolved Assessment and Plan: resolved (4) SIRS (systemic inflammatory response syndrome) Current Visit: Yes Status: Resolved Assessment and Plan: - 2 SIRS criteria on admission. Lactic acidosis and episodes of hypotension were present in ED requiring IV fluids today patient has 2 SIRS criteria. Currently patient is tachycardic and with leukocytosis. This may be explained from post-op state and from fluid overload. - Continue Lasix therapy as tolerated. - Currently on Rocephin for pneumonia. (5) Small bowel obstruction Current Visit: Yes Status: Acute Assessment and Plan: Initial CT abdomen/pelvis showed high-grade small bowel obstruction with transition point in the umbilical hernia. Surgery has been consulted, patient underwent Robotic Recurrent Incisional hernia repair mesh on 04/28/18. Exploratory laparotomy done yesterday with Lysis of adhesion on 05/10 Post-op management per Surgery. (6) Electrolyte imbalance Current Visit: Yes Status: Acute Assessment and Plan: He has had hypokalemia and hypomagnesemia, now it has been improved with supplement with IV and PO; Currently on TPN, will monitor (7) Essential hypertension Current Visit: Yes Status: Chronic Assessment and Plan: Continue Discontinue hydralazine since patient has tachycardia and will avoid worsening situation. (8) Pneumonia Current Visit: Yes Status: Suspected Assessment and Plan: suspected per CT chest and leukocytosis He has been afebrile Continue Rocephin (9) Lung nodule seen on imaging study Current Visit: Yes Status: Chronic Assessment and Plan: CT chest revealed an incidental finding of 1.2 x 1 cm spiculated nodule in the right upper lobe, suspicious for malignancy. Also shows 1.4 cm left adrenal nodule. Patient has been a heavy smoker, quit now. Suggest outpatient follow-up (10) DVT (deep venous thrombosis) Current Visit: Yes Status: Acute (11) Tachycardia Current Visit: Yes Status: Acute Assessment and Plan: Suspect fluid overload as etiology. Will rule out PT with lower extremity U/S as patient left leg is edematous, however has no venous stasis changes or tenderness. Does not appear to be sepsis at this point but will closely monitor. Avoid hydralazine. Xopenex may be contributing. - Time Spent with Patient Total time spent is greater than 50% in coordination of care (as documented) at patient's floor/unit and/or counseling patient: Internal Medicine: Result - Labs CBC & Chem 7: 05/14/18 04:23 05/14/18 04:23 Labs: Short CBC 05/13/18 Range/Units 04:00 WBC 18.5 H (4.3-11.1) K/mcL Hgb 7.5 L (12.9-16.9) g/dL Hct 22.1 L (37.5-50.1) % Plt Count 427 H (140-400) K/mcL Neutrophils # 14.9 H (1.6-8.9) K/mcL BMP 05/13/18 03:35 Sodium 131 L Potassium 3.9 Chloride 101 Carbon Dioxide 21 L BUN 20 Creatinine 0.37 L Glucose 101 Calcium 7.9 L - ABG Interpretation ABG results: PT/INR, D-dimer PT 13.2 Seconds (9.4-12.1) H 04/26/18 13:34 - VTE Documentation of Mechanical Device: Intermittent pneumatic compression device Consult Discharge Plan - Plan Referrals: Breanna Ocampo COAL DIGGER [Advanced Practice Nurse] - 05/15/18 1:30 pm (1) COPD (chronic obstructive pulmonary disease) Qualifiers: COPD type: chronic bronchitis Chronic bronchitis type: unspecified Qualified Code(s): J42 - Unspecified chronic bronchitis (2) Umbilical hernia Qualifiers: Obstruction and gangrene presence: with obstruction but without gangrene Qualified Code(s): K42.0 - Umbilical hernia with obstruction, without gangrene (8) Pneumonia Qualifiers: Pneumonia type: due to unspecified organism Laterality: right Lung location : lower lobe of lung Qualified Code(s): J18.1 - Lobar pneumonia, unspecified organism
[2018-05-13] MEDS: cefTRIAXone 1,000 MG in Water for inj. (sterile) 20 ML 10 ML IVP SCH (10:00)
[2018-05-13] MEDS: Levalbuterol Neb 1.25 MG/3 ML IH SCH ×3 (10:18→21:25)
[2018-05-13] MEDS: Albuterol 2.5 MG/3 ML NEBULIZER IH SCH ×3 (16:31→21:28)
[2018-05-13] MEDS: Clinimix E 5%-15% SOLUTION 2,000 ML with MVI, adult with vitamin K 10 ML, Trace Eleme... IVC SCH (18:42)
[2018-05-13] MEDS: Cefepime HCl 2,000 MG in Water for inj. (sterile) 20 ML 20 ML IVP SCH ×2 (20:24→20:25)
[2018-05-13] MEDS: Furosemide 40 MG/4 ML VIAL IVP SCH (20:54)
[2018-05-13] MEDS ORDERED: 0.9 % Sodium Chloride 1,000 ML IVC ONE (23:01)
[2018-05-14] MEDS: OXYCODONE Oral CONC 10 MG/0.5 ML ORAL.SYG SL PRN ×3 (02:59→21:01)
[2018-05-14] MEDS: Acetaminophen IV 1,000 MG/100 ML INFUS..BTL IVPB SCH ×4 (04:01→22:08)
[2018-05-14] MEDS: Albuterol 2.5 MG/3 ML NEBULIZER IH SCH ×2 (04:19→09:51)
[2018-05-14] MEDS: Levalbuterol Neb 1.25 MG/3 ML IH SCH (04:23)
[2018-05-14 04:46] LABS: Hematocrit 21.7 % (37.5-50.1); Hemoglobin 7.4 g/dL (12.9-16.9); Mean Corpuscular HGB Conc 34.1 g/dL (31.6-35.5); Mean Corpuscular Hemoglobin 29.7 pg (28.0-33.3); Mean Platelet Volume 10.2 fL (9.4-12.4); Platelet Count 597 K/mcL (140-400); Red Blood Count 2.49 M/mcL (4.19-5.50); Red Cell Distribution Width 15.3 % (11.5-14.5)
[2018-05-14 04:53] LABS: Mean Corpuscular Volume 87.1 fL (83.0-100.0)
[2018-05-14 05:03] LABS: BUN/Creatinine Ratio 53 (6-26); Blood Urea Nitrogen 18 mg/dL (8-23); Calcium 7.6 mg/dL (8.6-10.3); Carbon Dioxide 23 mEq/L (23-29); Chloride 102 mEq/L (98-107); Glucose 112 mg/dL (70-105); Osmolality,Calculated 279 (280-300); Potassium 3.6 mEq/L (3.5-5.1); Sodium 133 mEq/L (136-145); eGFR For Non-African Americans > 60 (> 60)
[2018-05-14 05:26] LABS: Eosinophils # 0.4 K/mcL (0.0-0.6); Lymphocytes # 1.1 K/mcL (0.6-4.6); Monocytes # 2.6 K/mcL (0.0-1.3); Neutrophils # 14.5 K/mcL (1.6-8.9)
[2018-05-14 05:27] LABS: Platelet Estimate Increased (Normal); Reactive Lymphocytes Present (Not Present)
[2018-05-14] MEDS: *HR* Metoprolol 5 MG/5 ML VIAL IVP SCH ×4 (06:11→23:36)
[2018-05-14] MEDS: Metoclopramide 10 MG/2 ML VIAL IVP SCH ×4 (06:11→23:36)
[2018-05-14] MEDS: Ketorolac 15 MG/ML VIAL IVP SCH ×4 (06:11→23:36)
[2018-05-14] MEDS: *HR* Heparin 5,000 UNIT/ML VIAL SQ SCH (06:12)
[2018-05-14] MEDS: Pantoprazole 40 MG VIAL IVP SCH (06:12)
[2018-05-14] MEDS ORDERED: *HR* Metoprolol 5 MG/5 ML VIAL IVP STA (09:53)
[2018-05-14] MEDS: MetroNIDAZOLE 500 MG/100 ML 500 MG/100 ML BAG IVPB SCH ×3 (09:54→23:36)
[2018-05-14] MEDS: Furosemide 40 MG/4 ML VIAL IVP SCH ×2 (09:55→15:27)
--- NOTE | 2018-05-14 09:56 | Internal Med Progress Note ---
Hospitalist Progress Note - Encounter Date of Encounter: 05/14/18 Time of Encounter: 09:58 - Subjective Interval History: No acute events. Patient not had any bowel movements. Still tachycardic overnight. He has dyspnea that resolves with breathing treatments. Denies chest pain, fevers/chills, diaphoresis, palpitations. - Exam Vitals: Temp Pulse Resp BP Pulse Ox 98.5 F 93 16 150/63 92 05/14/18 06:42 05/14/18 06:42 05/14/18 06:42 05/14/18 06:42 05/14/18 06:42 Exam: Gen: appears in discomfort, AAOx3 CVS: tachycardic, no mrg Lungs: decreased breash sounds at bases. Abd: soft, appears slight distended compared to yesterday, + bowel sounds Ext: trace bipedal edema. Left lower ext edema improved. - Assessment and Plan (1) Small bowel obstruction Current Visit: Yes Status: Acute Assessment and Plan: Initial CT abdomen/pelvis showed high-grade small bowel obstruction with transition point in the umbilical hernia. Surgery has been consulted, patient underwent Robotic Recurrent Incisional hernia repair mesh on 04/28/18. Exploratory laparotomy done Lysis of adhesion on 05/10 Post-op management per Surgery. (2) Tachycardia Current Visit: Yes Status: Acute Assessment and Plan: Possible etiology include fluid overload He is on metoprolol at home which is being given IV while NPO Ultrasound left lower extremity to rule out DVT. Lower suspicion for PE as a cause of tachycardia at this point. EKG ordered, will follow-up. Change Xopenex to ipratroprium as beta agonists may worsen this Continue Lasix, edema appears improved today. Patient denies chest pain, but is having SOB. (3) Umbilical hernia Current Visit: Yes Status: Acute Assessment and Plan: Umbilical hernia mechanically reduced in ED on admission. s/p surgical repair 04/28/18. follow surgery recommendations. (4) COPD (chronic obstructive pulmonary disease) Current Visit: Yes Status: Chronic Assessment and Plan: Not in acute exacerbation. Switch Xopenex to ipratroprium due to tachycardia. (5) NUNU (acute kidney injury) Current Visit: Yes Status: Resolved Assessment and Plan: resolved (6) SIRS (systemic inflammatory response syndrome) Current Visit: Yes Status: Resolved Assessment and Plan: - 2 SIRS criteria on admission. Lactic acidosis and episodes of hypotension were present in ED requiring IV fluids today patient has 2 SIRS criteria. Currently patient is tachycardic and with leukocytosis. - Currently on Rocephin and Flagyl. Monitor closely. (7) Electrolyte imbalance Current Visit: Yes Status: Acute Assessment and Plan: He has had hypokalemia and hypomagnesemia, now it has been improved with supplement with IV and PO; Currently on TPN anticipate low electrolyte levelts will improve, will monitor (8) Essential hypertension Current Visit: Yes Status: Chronic Assessment and Plan: Continue IV lopressor scheduled. Hydralazine discontinued due to tachycardia. When able to tolerate medications, will restart home Toprol XL. (9) Pneumonia Current Visit: Yes Status: Suspected Assessment and Plan: suspected per CT chest and leukocytosis He has been afebrile Has leukocytosis but may be post-op state. Continue Rocephin Sepsis risk, will monitor closely. (10) Lung nodule seen on imaging study Current Visit: Yes Status: Chronic Assessment and Plan: CT chest revealed an incidental finding of 1.2 x 1 cm spiculated nodule in the right upper lobe, suspicious for malignancy. Also shows 1.4 cm left adrenal nodule. Patient has been a heavy smoker, quit now. Suggest outpatient follow-up (11) Acute anemia Current Visit: Yes Status: Acute Assessment and Plan: Baseline prior to admission was about 11.0-12.0. Post op had expected decreased hemoglobin, but now having return of hematuria with a decrease of hemoglobin to 7.4 today and 7.5 yesterday. H&H being checked, Urology is re- consulted. (12) Gross hematuria Current Visit: Yes Status: Acute Assessment and Plan: Episode of hematuria on 05/10/18 which resolved with gentle hydration. Urology saw patient at that time. Recurrance of hematuria this AM with hemoglobin 7.4. Checking H&H. Urology will be reconsulted. - Time Spent with Patient Total time spent is greater than 50% in coordination of care (as documented) at patient's floor/unit and/or counseling patient: Internal Medicine: Result - Labs CBC & Chem 7: 05/14/18 04:23 05/14/18 04:23 Labs: Short CBC 05/14/18 Range/Units 04:23 WBC 18.6 H (4.3-11.1) K/mcL Hgb 7.4 L (12.9-16.9) g/dL Hct 21.7 L (37.5-50.1) % Plt Count 597 H (140-400) K/mcL Neutrophils # 14.5 H (1.6-8.9) K/mcL BMP 05/14/18 04:23 Sodium 133 L Potassium 3.6 Chloride 102 Carbon Dioxide 23 BUN 18 Creatinine 0.34 L Glucose 112 H Calcium 7.6 L - ABG Interpretation ABG results: PT/INR, D-dimer PT 13.2 Seconds (9.4-12.1) H 04/26/18 13:34 - VTE Documentation of Mechanical Device: Intermittent pneumatic compression device Consult Discharge Plan - Plan Referrals: Breanna Ocampo CNP [Advanced Practice Nurse] - 05/15/18 1:30 pm (3) Umbilical hernia Qualifiers: Obstruction and gangrene presence: with obstruction but without gangrene Qualified Code(s): K42.0 - Umbilical hernia with obstruction, without gangrene (4) COPD (chronic obstructive pulmonary disease) Qualifiers: COPD type: chronic bronchitis Chronic bronchitis type: unspecified Qualified Code(s): J42 - Unspecified chronic bronchitis (9) Pneumonia Qualifiers: Pneumonia type: due to unspecified organism Laterality: right Lung location : lower lobe of lung Qualified Code(s): J18.1 - Lobar pneumonia, unspecified organism
[2018-05-14] MEDS ORDERED: Calcium Gluconate 2,000 MG in D5% in Water 100 ML IVPB ONE (10:01)
[2018-05-14] MEDS: cefTRIAXone 1,000 MG in Water for inj. (sterile) 20 ML 10 ML IVP SCH (10:02)
[2018-05-14] MEDS ORDERED: Ipratropium Neb 0.5 MG NEBULIZER ONE (10:13)
[2018-05-14] MEDS: Ipratropium Neb 0.5 MG NEBULIZER IH SCH ×4 (10:15→23:22)
--- NOTE | 2018-05-14 11:27 | General Surgery Progress Note ---
Date of Encounter: 05/14/18 Time of Encounter: 11:25 - Assessment and Plan (1) Umbilical hernia Current Visit: Yes Status: Acute 67M s/p UHR, s//p ex lap, SBR, R hemicolectomy; afebrile, tachycardic episodes; few episodes of flatus; still with distension; now with grossly bloody urine NPO cont NG tube cont TPN cont PPI activity as tolerated replete lytes pulm toileting urology consult, trend h/h, transfuse as needed Qualifiers: Obstruction and gangrene presence: with obstruction but without gangrene Qualified Code(s): K42.0 - Umbilical hernia with obstruction, without gangrene Subjective Patient reports: no new complaints, flatus (a little), afebrile Objective Vital Signs - Last 8 Hours Temp Pulse Resp BP Pulse Ox 05/14/18 06:42 98.5 F 93 16 150/63 92 05/14/18 04:23 24 93 05/14/18 04:16 98.2 F 120 14 161/77 93 Intake and Output 05/13/18 05/14/18 05/14/18 23:59 07:59 15:59 Intake Total 200 / 200 450 / 450 110 / 110 Output Total 690 / 690 150 / 150 270 / 270 Balance -490 / -490 300 / 300 -160 / -160 Intake: IV Fluids 200 / 200 450 / 450 110 / 110 Rocephin 1,000 MG In Water for 10 / 10 inj. (sterile) 10 ML @ 600 mls/ hr IVP DAILY [facility] Rx#:[id number] Ofirmev 1,000 mg/100 ml 1,000 100 / 100 100 / 100 mg In 100 ml @ 400 mls/hr IVPB Q6H [facility] Rx#:[id number] Intralipid 20% 250 ML @ 21 mls/ 250 / 250 hr IVPB DAILY@1700 [facility] Rx#: [id number] Flagyl Premix 500 MG/100 ML 500 100 / 100 100 / 100 100 / 100 mg In 100 ml @ 100 mls/hr IVPB Q8HR [facility] Rx#:[id number] Oral 0 / 0 0 / 0 Output: Urine 650 / 650 150 / 150 250 / 250 Wound Drainage 40 / 40 20 / 20 Left Abdomen 40 / 40 20 / 20 Other: Meal NPO DINNER NPO BREAKFAST Stool Characteristics Mucoid Stool Color White # Bowel Movements 0 Blood Glucose* 129 151 - General physical appearance no distress - Respiratory normal expansion, normal respiratory effort - Cardiovascular Cardiovascular exam: Present: RRR - Abdomen Abdomen: Present: soft, distended, tender - Neurologic CN 2-12 grossly intact - Musculoskeletal normal posture - Labs 05/14/18 04:23 05/14/18 04:23 Diabetes panel 05/14/18 Range/Units 04:23 Sodium 133 L (136-145) mEq/L Potassium 3.6 (3.5-5.1) mEq/L Chloride 102 (98-107) mEq/L Carbon Dioxide 23 (23-29) mEq/L BUN 18 (8-23) mg/dL Creatinine 0.34 L (0.70-1.30) mg/dL Glucose 112 H (70-105) mg/dL Calcium 7.6 L (8.6-10.3) mg/dL Calcium panel 05/14/18 Range/Units 04:23 Calcium 7.6 L (8.6-10.3) mg/dL Pituitary panel 05/14/18 Range/Units 04:23 Sodium 133 L (136-145) mEq/L Potassium 3.6 (3.5-5.1) mEq/L Chloride 102 (98-107) mEq/L Carbon Dioxide 23 (23-29) mEq/L BUN 18 (8-23) mg/dL Creatinine 0.34 L (0.70-1.30) mg/dL Glucose 112 H (70-105) mg/dL Calcium 7.6 L (8.6-10.3) mg/dL Adrenal panel 05/14/18 Range/Units 04:23 Sodium 133 L (136-145) mEq/L Potassium 3.6 (3.5-5.1) mEq/L Chloride 102 (98-107) mEq/L Carbon Dioxide 23 (23-29) mEq/L BUN 18 (8-23) mg/dL Creatinine 0.34 L (0.70-1.30) mg/dL Glucose 112 H (70-105) mg/dL Calcium 7.6 L (8.6-10.3) mg/dL - VTE Documentation of Mechanical Device: Intermittent pneumatic compression device Consult Discharge Plan - Plan Referrals: Breanna Ocampo CNP [Advanced Practice Nurse] - 05/15/18 1:30 pm
[2018-05-14 11:29] LABS: Hematocrit 23.1 % (37.5-50.1); Hemoglobin 7.8 g/dL (12.9-16.9)
[2018-05-14] MEDS ORDERED: Ipratropium 1 PUFF INHALER IH SCH (12:00)
[2018-05-14 15:23] LABS: Hematocrit 19.2 % (37.5-50.1); Hemoglobin 6.5 g/dL (12.9-16.9)
[2018-05-14] MEDS: Clinimix E 5%-15% SOLUTION 2,000 ML with MVI, adult with vitamin K 10 ML, Trace Eleme... IVC SCH ×2 (16:38→16:54)
[2018-05-14] MEDS ORDERED: 0.9 % Sodium Chloride 250 ML ONE (18:09)
[2018-05-14] MEDS ORDERED: Furosemide 20 MG/2 ML VIAL IVP ONE (21:57)
[2018-05-15] MEDS: Acetaminophen IV 1,000 MG/100 ML INFUS..BTL IVPB SCH ×4 (03:57→21:01)
[2018-05-15 04:13] LABS: Hematocrit 24.3 % (37.5-50.1); Mean Corpuscular HGB Conc 34.6 g/dL (31.6-35.5); Mean Corpuscular Hemoglobin 29.9 pg (28.0-33.3); Mean Corpuscular Volume 86.5 fL (83.0-100.0); Mean Platelet Volume 9.9 fL (9.4-12.4); Platelet Count 567 K/mcL (140-400); Red Blood Count 2.81 M/mcL (4.19-5.50); Red Cell Distribution Width 14.7 % (11.5-14.5)
[2018-05-15] MEDS: Ipratropium Neb 0.5 MG NEBULIZER IH SCH ×6 (04:20→23:45)
[2018-05-15 04:23] LABS: Hemoglobin 8.4 g/dL (12.9-16.9)
[2018-05-15 04:33] LABS: BUN/Creatinine Ratio 54 (6-26); Blood Urea Nitrogen 19 mg/dL (8-23); Calcium 7.8 mg/dL (8.6-10.3); Carbon Dioxide 24 mEq/L (23-29); Chloride 99 mEq/L (98-107); Glucose 98 mg/dL (70-105); Osmolality,Calculated 276 (280-300); Potassium 3.7 mEq/L (3.5-5.1); Sodium 132 mEq/L (136-145); eGFR For Non-African Americans > 60 (> 60)
[2018-05-15 04:58] LABS: Lymphocytes # 1.9 K/mcL (0.6-4.6); Monocytes # 2.2 K/mcL (0.0-1.3); Neutrophils # 14.1 K/mcL (1.6-8.9); Platelet Estimate Increased (Normal)
[2018-05-15] MEDS: *HR* Metoprolol 5 MG/5 ML VIAL IVP SCH ×3 (05:35→18:29)
[2018-05-15] MEDS: Metoclopramide 10 MG/2 ML VIAL IVP SCH ×3 (05:35→18:29)
[2018-05-15] MEDS: Pantoprazole 40 MG VIAL IVP SCH (05:35)
[2018-05-15] MEDS: Ketorolac 15 MG/ML VIAL IVP SCH ×2 (05:35→19:24)
--- NOTE | 2018-05-15 07:09 | Urology Progress Note ---
Date of Encounter: 05/15/18 Time of Encounter: 07:07 - Assessment and Plan (1) Gross hematuria Current Visit: Yes Status: Acute Assessment and plan: keep ivf at current rate. will see if this will clear hematuria. will check ua. (2) Nocturia Current Visit: Yes Status: Acute (3) Weak urinary stream Current Visit: Yes Status: Acute Progress Note Narrative: patient seen. patient started to develop gross hematuria yesterday after cath was removed. patient feels as though he is emptying his bladder Objective Initial Vital Signs Temp Pulse Resp BP Pulse Ox 97.6 F 100 16 83/48 97 04/26/18 13:10 04/26/18 13:10 04/26/18 13:10 04/26/18 13:10 04/26/18 13:10 - General physical appearance Present: well developed, well nourished - Respiratory Present: normal expansion, normal respiratory effort - Abdomen Present: soft. Absent: tender - Labs 05/15/18 04:00 05/15/18 04:00 Diabetes panel 05/15/18 Range/Units 04:00 Sodium 132 L (136-145) mEq/L Potassium 3.7 (3.5-5.1) mEq/L Chloride 99 (98-107) mEq/L Carbon Dioxide 24 (23-29) mEq/L BUN 19 (8-23) mg/dL Creatinine 0.35 L (0.70-1.30) mg/dL Glucose 98 (70-105) mg/dL Calcium 7.8 L (8.6-10.3) mg/dL Calcium panel 05/15/18 Range/Units 04:00 Calcium 7.8 L (8.6-10.3) mg/dL Pituitary panel 05/15/18 Range/Units 04:00 Sodium 132 L (136-145) mEq/L Potassium 3.7 (3.5-5.1) mEq/L Chloride 99 (98-107) mEq/L Carbon Dioxide 24 (23-29) mEq/L BUN 19 (8-23) mg/dL Creatinine 0.35 L (0.70-1.30) mg/dL Glucose 98 (70-105) mg/dL Calcium 7.8 L (8.6-10.3) mg/dL Adrenal panel 05/15/18 Range/Units 04:00 Sodium 132 L (136-145) mEq/L Potassium 3.7 (3.5-5.1) mEq/L Chloride 99 (98-107) mEq/L Carbon Dioxide 24 (23-29) mEq/L BUN 19 (8-23) mg/dL Creatinine 0.35 L (0.70-1.30) mg/dL Glucose 98 (70-105) mg/dL Calcium 7.8 L (8.6-10.3) mg/dL - VTE Documentation of Mechanical Device: Intermittent pneumatic compression device Consult Discharge Plan - Plan Referrals: Breanna Ocampo CNP [Advanced Practice Nurse] - 05/15/18 1:30 pm
--- NOTE | 2018-05-15 09:15 | Electrocardiograph Report ---
[address] [address] Test Date: 2018-05-14 Pat Name: Misha Freed Department: 115 Room: 3A44 Gender: M Propeller Inspector: : [id number] Requested By: Nikkie Daley Order Number: [id number] Reading MD: Mark Aguirre Measurements Intervals [place] Rate: 110 P: 55 LA: 124 QRS: 46 QRSD: 98 T: 59 QT: 336 QTc: 401 Interpretive Statements SINUS TACHYCARDIA WITH FREQUENT VENTRICULAR PREMATURE COMPLEXES NONSPECIFIC T-WAVE ABNORMALITY Electronically Signed On 05-15-2018 9:13:47 EDT by Mark Aguirre
--- NOTE | 2018-05-15 10:18 | Event Note ---
Date of Encounter: 05/15/18 Time of Encounter: 07:50 I examined this patient and my medical decision-making was reviewed with the Resident Physician. I agree with the documented findings, disposition and treatment plan as described with any changes as documented below. Patient is awake and alert. Continues to have hematuria. Reports NG tube is discomforting. Does have abdominal pain. No shortness of breath. No fever or chills reported overnight. Remains tachycardic. General appearance: Present: cooperative, A&O X 3, underweight, answers questions appropriately - ENT: NG tube in place - Neck Neck exam general surgery: Present: supple, trachea midline. Absent: lymphadenopathy - Respiratory Respiratory exam: Present: Normal breath sounds, decreased air entry at bases, prolonged expiratory phase. Absent: accessory muscle use, rales, rhonchi - Cardiovascular Cardiovascular exam: Present: RRR, +S1, +S2, tachycardia. Absent: diastolic murmur, gallop, rubs, systolic murmur - GI/Abdominal GI/Abdominal exam: Present: normal bowel sounds, soft, distended no peritoneal signs. Generalized tenderness - Extremities Exam Extremities exam: Present: warm, radial pulses palpable and symmetrical. Absent : calf tenderness, cyanotic, pedal edema - Neurological Exam Neurological exam: Present: alert, oriented X3, no focal deficits. Absent: facial droop, speech deficit Small bowel obstruction due to an umbilical hernia: Status post incisional hernia repair and lysis of adhesions with exploratory laparotomy. On TPN. NG tube to low intermittent suction. Supportive care per surgery. Hematuria: Urology consult appreciated. We will follow recommendations. Holding heparin for DVT prophylaxis Tachycardia: Persistent and variable. We will continue to monitor. On IV Lopressor as needed. Echocardiogram done earlier during hospitalization shows normal ejection fraction with mild left ventricular diastolic dysfunction. Consider starting oral beta deisy. COPD: Not in acute exacerbation. On Xopenex as needed for bronchospasm. Acute kidney injury: Resolved Essential hypertension: Resume metoprolol.
[2018-05-15] MEDS: Furosemide 40 MG/4 ML VIAL IVP SCH ×2 (10:20→18:28)
[2018-05-15] MEDS: MetroNIDAZOLE 500 MG/100 ML 500 MG/100 ML BAG IVPB SCH ×2 (10:20→18:28)
[2018-05-15] MEDS: cefTRIAXone 1,000 MG in Water for inj. (sterile) 20 ML 10 ML IVP SCH (10:20)
[2018-05-15] MEDS ORDERED: Fluconazole 200 MG/100 ML 200 MG/100 ML BAG IVPB ONE (13:15)
--- NOTE | 2018-05-15 13:15 | General Surgery Progress Note ---
Date of Encounter: 05/15/18 Time of Encounter: 13:13 - Assessment and Plan (1) Umbilical hernia Current Visit: Yes Status: Acute Bowel rest NG tube to LIWS NPO except for ice chips for comfort Scheded Ofirmev for pain to try to limit narcotics. Ketoralac discontinued. Continue aggressive pulm toileting and AccuPap per RT, Continue Duoneb for Pulmonary function. .FROILAN drain care: Do not let the FROILAN dangle from the body. Please attach FROILAN to gown with safety pin. Strip lines Q8 hours at minimum. Maintain FROILAN bulb to suction. Report any changes in FROILAN output. Remove dressing and packing. Wash with antibacterial soap. Pat dry. Apply Alkare barrier wipes to abdomen. Repack with 1/2 inch mesalt ribbon. Cover with a dry dressing and or ABD pad. Tape to secure. Continue IV Atbx as per primary for pneumonia Continue TPN for severe protein malnutrition continue PT/OT Out of bed to chair at least TID KUB ordered for bowel gas patterns. Qualifiers: Obstruction and gangrene presence: with obstruction but without gangrene Qualified Code(s): K42.0 - Umbilical hernia with obstruction, without gangrene (2) Fever, unknown origin Current Visit: Yes Status: Resolved (3) Ileus, postoperative Current Visit: Yes Status: Acute see above (4) COPD (chronic obstructive pulmonary disease) Current Visit: Yes Status: Chronic per primary team Qualifiers: COPD type: chronic bronchitis Chronic bronchitis type: unspecified Qualified Code(s): J42 - Unspecified chronic bronchitis Subjective Patient reports: flatus (pt states he feels like he passed some gas yesterday), no bowel movement, other (Patient is feeling some better today. His pain is less than yesterday. ) Objective Vital Signs - Last 8 Hours Temp Pulse Resp BP Pulse Ox 05/15/18 12:10 98.4 F 102 18 163/81 95 05/15/18 11:44 16 99 05/15/18 08:45 95 05/15/18 08:00 19 96 05/15/18 06:52 98.3 F 110 20 128/72 97 Intake and Output 05/14/18 05/15/18 05/15/18 23:59 07:59 15:59 Intake Total 650 / 650 200 / 200 Output Total 680 / 680 1000 / 1000 900 / 900 Balance -30 / -30 -800 / -800 -900 / -900 Intake: IV Fluids 300 / 300 200 / 200 Ofirmev 1,000 mg/100 ml 1,000 200 / 200 100 / 100 mg In 100 ml @ 400 mls/hr IVPB Q6H [facility] Rx#:[id number] Flagyl Premix 500 MG/100 ML 500 100 / 100 100 / 100 mg In 100 ml @ 100 mls/hr IVPB Q8HR [facility]AT[facility] Rx#:[id number] Oral 0 / 0 0 / 0 Blood Product 350 / 350 Rbcs Leuko Poor As-1 Unit 350 / 350 [id number] Output: Urine 675 / 675 700 / 700 900 / 900 Gastric Drainage 300 / 300 Wound Drainage 5 / 5 Left Abdomen 5 / 5 Other: Meal NPO # Voids 1 # Bowel Movements 0 Weight 76.1 kg Blood Glucose* 116 143 134 Patient Weight 05/15/18 23:59 Weight 76.1 kg - General physical appearance well developed, moderate pain, chronically ill - Respiratory normal expansion, normal respiratory effort wheezing: bilateral (both lower lobes slight wheezes noted on expiration) - Cardiovascular Cardiovascular exam: Present: RRR, no murmurs/rubs/gallops - Abdomen Abdomen: Present: distended, tender. Absent: bowel sounds present Additional Comments: FROILAN drain had serous output with some debris but not succus - Incision Incision: Present: draining (Draining purulent draininage from lower incision and also from just above the unbilicus, converning for infection. Two jefry were removed and the wound was packed with mesalt ribbon. Abdominal binder ordered to help prevent dehissence. ) - Musculoskeletal normal posture - Psychiatric oriented to time, oriented to person, oriented to place - Labs 05/15/18 04:00 05/15/18 04:00 Diabetes panel 05/15/18 Range/Units 04:00 Sodium 132 L (136-145) mEq/L Potassium 3.7 (3.5-5.1) mEq/L Chloride 99 (98-107) mEq/L Carbon Dioxide 24 (23-29) mEq/L BUN 19 (8-23) mg/dL Creatinine 0.35 L (0.70-1.30) mg/dL Glucose 98 (70-105) mg/dL Calcium 7.8 L (8.6-10.3) mg/dL Calcium panel 05/15/18 Range/Units 04:00 Calcium 7.8 L (8.6-10.3) mg/dL Pituitary panel 05/15/18 Range/Units 04:00 Sodium 132 L (136-145) mEq/L Potassium 3.7 (3.5-5.1) mEq/L Chloride 99 (98-107) mEq/L Carbon Dioxide 24 (23-29) mEq/L BUN 19 (8-23) mg/dL Creatinine 0.35 L (0.70-1.30) mg/dL Glucose 98 (70-105) mg/dL Calcium 7.8 L (8.6-10.3) mg/dL Adrenal panel 05/15/18 Range/Units 04:00 Sodium 132 L (136-145) mEq/L Potassium 3.7 (3.5-5.1) mEq/L Chloride 99 (98-107) mEq/L Carbon Dioxide 24 (23-29) mEq/L BUN 19 (8-23) mg/dL Creatinine 0.35 L (0.70-1.30) mg/dL Glucose 98 (70-105) mg/dL Calcium 7.8 L (8.6-10.3) mg/dL - VTE Documentation of Mechanical Device: Intermittent pneumatic compression device Consult Discharge Plan - Plan Referrals: Breanna Ocampo CNP [Advanced Practice Nurse] - 05/15/18 1:30 pm
--- NOTE | 2018-05-15 14:42 | Internal Med Progress Note ---
<Keeley Rivera P - Last Filed: 05/15/18 18:00> Date of Encounter: 05/15/18 Time of Encounter: 09:00 - Assessment and plan (1) COPD (chronic obstructive pulmonary disease) Current Visit: Yes Status: Chronic Assessment and plan: He is a chronic case of COPD , has mild productive cough , but cough is better than before . He has on and off Tachycardia fluctuates 125 to 98 He is on Ceftriaxone 1 gram IV antibiotics for last 4 days . His xray chest shows minimal pleural effusion both side and mild pulmonary edema and atelectasis that might be the reason for SOB He has developed mild pulmonary oedema , probably due to fluid over load We have added diuretics Qualifiers: COPD type: chronic bronchitis Chronic bronchitis type: unspecified Qualified Code(s): J42 - Unspecified chronic bronchitis (2) Umbilical hernia Current Visit: Yes Status: Acute Qualifiers: Obstruction and gangrene presence: with obstruction but without gangrene Qualified Code(s): K42.0 - Umbilical hernia with obstruction, without gangrene (3) NUNU (acute kidney injury) Current Visit: Yes Status: Resolved (4) SIRS (systemic inflammatory response syndrome) Current Visit: Yes Status: Resolved (5) Small bowel obstruction Current Visit: Yes Status: Acute Assessment and plan: Small bowel obstruction with transition point at Umbilical hernia Robotic incisional hernia repair done on 04/28 . He is on metronidazone and Ceftriaxone . Exploratory laparotomy done 05/10 to address SBO and suspected bowel perforation. His abdominal complaints has been much better after bowel surgery . Abdominal distension is less than before, no wound site infection. Surgical team has been following up him. (6) Electrolyte imbalance Current Visit: Yes Status: Acute (7) Essential hypertension Current Visit: Yes Status: Chronic Assessment and plan: He is on Diuretics and Metoprolol His BP is 128/72 We are monitoring his blood pressure daily. (8) Pneumonia Current Visit: Yes Status: Suspected Assessment and plan: Suspected pneumonia due to atelectasis , is on IV antibiotics Ceftriaxone 1 gram IV and supplemental Oxygen He states that the cough is better today . Recent Xray shows mild pulmonary oedema , blunting of costophrenic angles both side and minimal pleural effusion both side He has on and off tachycardia, but no fever Blood count : 18.5 with Neutrophils 14.1 this morning He is on NPO with NG in situ and TPN We will monitor regularly Qualifiers: Pneumonia type: due to unspecified organism Laterality: right Lung location: lower lobe of lung Qualified Code(s): J18.1 - Lobar pneumonia, unspecified organism (9) Lung nodule seen on imaging study Current Visit: Yes Status: Chronic Assessment and plan: CT chest revealed an incidental finding of 1.2 x 1 cm spiculated nodule in the right upper lobe, suspicious for malignancy. Also shows 1.4 cm left adrenal nodule. Patient has been a heavy smoker, quitted now. Oncology consult appreciated- will f/up as outpatient with PET CT and possible biopsy; (10) Tachycardia Current Visit: Yes Status: Acute Assessment and plan: He has fluctuatating heart rate 125 to 98 with infrequent VPC. We are monitoring regularly Ordered Throid function test Increased dose of Metoprolol - Subjective Interval history: This is Post admission day for this patient .This 67 years old male is admitted for pneumonia and high grade small bowel obstruction transition point in Umbilical hernia, Tachycardia, NUNU , COPD, Lung nodule .He has done Robotic incisional hernia repair on 04/28 . Later he developed distention of abdomen and generalized pain in whole abdomen . So he underwent exploratory laparotomy and lysis of adhesion on 05/10. He developed hematuria , so Urologist consulted, heparin was put on hold and Yesterday he again had Hematuria , urologist consulted , now it has been improving . He has mild cough with whitish productive sputum. He denies aggravated dyspnoea , but he is on low flow oxygen via canula , no fever , sweating . He thinks that it has been much better today as compared to before after bowel surgery. He has fluctuating heart rate from 125 to 98 and so we are continuously monitoring HR with increasing dose of Metoprolol and Thyroid function has been ordered . We will closely monitor for suspected throboembolism and sepsis. Recent venous droppler test for DVT was negative. - Constitutional Vitals: Temp Pulse Resp BP Pulse Ox 98.4 F 102 18 163/81 95 05/15/18 12:10 05/15/18 12:10 05/15/18 12:10 05/15/18 12:10 05/15/18 12:10 General appearance: Present: cooperative, A&O X 2 (issues with memory occasionally, likely due to acute illness), no acute distress, answers questions appropriately - Head Head exam: Present: normal inspection, normocephalic - Respiratory Additional comments: Chest expansion is good both side, diminished air entry both right and left lower lobe , few scattered rales at lower lobes both side, but occasional wheezes, no cyanosis, - Cardiovascular Additional comments: Normal rate and rhythm, S1S2 normal, no murmur or added sound - GI/Abdominal Additional comments: Soft , mildly distended, no rigidity and guarding ,no wound site infection, BS present but hypoactive, - Neurological Exam Neurological exam: Present: oriented X3, reflexes normal Internal Medicine: Result - Labs CBC & Chem 7: 05/15/18 04:00 05/15/18 04:00 Labs: Short CBC 05/14/18 05/15/18 Range/Units 15:10 04:00 WBC 18.5 H (4.3-11.1) K/mcL Hgb 6.5 L 8.4 L D (12.9-16.9) g/dL Hct 19.2 L 24.3 L (37.5-50.1) % Plt Count 567 H (140-400) K/mcL Neutrophils # 14.1 H (1.6-8.9) K/mcL BMP 05/15/18 04:00 Sodium 132 L Potassium 3.7 Chloride 99 Carbon Dioxide 24 BUN 19 Creatinine 0.35 L Glucose 98 Calcium 7.8 L Cardiac Enzymes 05/14/18 Range/Units 20:47 Troponin I 0.04 H* (< 0.04) ng/mL - ABG Interpretation ABG results: PT/INR, D-dimer PT 13.2 Seconds (9.4-12.1) H 04/26/18 13:34 - Impressions Impressions Chest X-Ray 05/14/18 10:34 IMPRESSION: 1. Interval worsening in pulmonary edema and bilateral pleural effusions. 2. Worsening bibasilar pulmonary opacities are most consistent with atelectasis and/or edema. Superimposed pneumonia cannot be excluded. Recommend radiographic follow-up to complete resolution. D/ 05/14/2018 18:02:52 Manuelito Cross MD / [facility] Interpreting Provider: Manuelito Cross MD Abdomen X-Ray 05/15/18 12:56 IMPRESSION: Overall similar appearing abdominal exam with diffuse gas-filled loops of bowel, including small bowel as well as colon. The degree of dilation does not appear significantly changed when compared to the previous examination. Interval placement of an enteric tube, which is coiled upon itself with the tip terminating in the gastric fundus. A tube is seen centered over the pelvis which may be rectal in location. D/ / Scar Sanchez MD / Scar Sanchez MD Interpreting Provider: Scar Sanchez MD - VTE Documentation of Mechanical Device: Intermittent pneumatic compression device Consult Discharge Plan - Plan Referrals: Breanna Ocampo CNP [Advanced Practice Nurse] - 05/15/18 1:30 pm <Nata Odom - Last Filed: 05/15/18 19:00> Date of Encounter: 05/15/18 Time of Encounter: 07:50 - Constitutional Vitals: Temp Pulse Resp BP Pulse Ox 98.7 F 121 20 163/89 97 05/15/18 16:26 05/15/18 16:26 05/15/18 16:26 05/15/18 16:26 05/15/18 16:26 Internal Medicine: Result - Labs CBC & Chem 7: 05/15/18 04:00 05/15/18 04:00 Labs: Short CBC 05/15/18 Range/Units 04:00 WBC 18.5 H (4.3-11.1) K/mcL Hgb 8.4 L D (12.9-16.9) g/dL Hct 24.3 L (37.5-50.1) % Plt Count 567 H (140-400) K/mcL Neutrophils # 14.1 H (1.6-8.9) K/mcL BMP 05/15/18 04:00 Sodium 132 L Potassium 3.7 Chloride 99 Carbon Dioxide 24 BUN 19 Creatinine 0.35 L Glucose 98 Calcium 7.8 L Cardiac Enzymes 05/14/18 Range/Units 20:47 Troponin I 0.04 H* (< 0.04) ng/mL - ABG Interpretation ABG results: PT/INR, D-dimer PT 13.2 Seconds (9.4-12.1) H 04/26/18 13:34 - Impressions Impressions Chest X-Ray 05/14/18 10:34 IMPRESSION: 1. Interval worsening in pulmonary edema and bilateral pleural effusions. 2. Worsening bibasilar pulmonary opacities are most consistent with atelectasis and/or edema. Superimposed pneumonia cannot be excluded. Recommend radiographic follow-up to complete resolution. D/ / 05/14/2018 18:02:52 Manuelito Cross MD / [facility] Interpreting Provider: Manuelito Cross MD Abdomen X-Ray 05/15/18 12:56 IMPRESSION: Overall similar appearing abdominal exam with diffuse gas-filled loops of bowel, including small bowel as well as colon. The degree of dilation does not appear significantly changed when compared to the previous examination. Interval placement of an enteric tube, which is coiled upon itself with the tip terminating in the gastric fundus. A tube is seen centered over the pelvis which may be rectal in location. D/ / Scar Sanchez MD / Scar Sanchez MD Interpreting Provider: Scar Sanchez MD - Attending Attestation I examined this patient and my medical decision-making was reviewed with the Resident Physician. I agree with the documented findings, disposition and treatment plan as described with any changes as documented below. Patient is awake and alert. Continues to have hematuria. Reports NG tube is discomforting. Does have abdominal pain. No shortness of breath. No fever or chills reported overnight. Remains tachycardic. General appearance: Present: cooperative, A&O X 3, underweight, answers questions appropriately - ENT: NG tube in place - Neck Neck exam general surgery: Present: supple, trachea midline. Absent: lymphadenopathy - Respiratory Respiratory exam: Present: wheezes, decreased air entry at bases, prolonged expiratory phase. Absent: accessory muscle use, rales, rhonchi - Cardiovascular Cardiovascular exam: Present: RRR, +S1, +S2, tachycardia. Absent: diastolic murmur, gallop, rubs, systolic murmur - GI/Abdominal GI/Abdominal exam: Present: normal bowel sounds, soft, distended no peritoneal signs. Generalized tenderness - Extremities Exam Extremities exam: Present: warm, radial pulses palpable and symmetrical. Absent : calf tenderness, cyanotic, pedal edema - Neurological Exam Neurological exam: Present: alert, oriented X3, no focal deficits. Absent: facial droop, speech deficit Small bowel obstruction due to an umbilical hernia: Status post incisional hernia repair and lysis of adhesions with exploratory laparotomy. On TPN. NG tube to low intermittent suction. Supportive care per surgery. Hematuria: Urology consult appreciated. We will follow recommendations. Holding heparin for DVT prophylaxis Tachycardia: Persistent and variable. We will continue to monitor. On IV Lopressor as needed. Echocardiogram done earlier during hospitalization shows normal ejection fraction with mild left ventricular diastolic dysfunction. Consider starting oral beta deisy. COPD: Not in acute exacerbation. On Xopenex as needed for bronchospasm. Acute kidney injury: Resolved Essential hypertension: Resume metoprolol.
[2018-05-15 15:06] LABS: Thyroid Stimulating Hormone 2.378 mcIU/mL (0.340-5.600)
[2018-05-15] MEDS: OXYCODONE Oral CONC 10 MG/0.5 ML ORAL.SYG SL PRN (16:49)
[2018-05-15] MEDS ORDERED: Clinimix E 5%-15% SOLUTION 2,000 ML with MVI, adult with vitamin K 10 ML, Trace Eleme... IVC SCH (17:00)
[2018-05-15] MEDS: Clinimix E 5%-15% SOLUTION 2,000 ML with MVI, adult with vitamin K 10 ML, Trace Eleme... IVC SCH (19:23)
[2018-05-15 23:01] LABS: Bilirubin,Urine Moderate (Negative); Blood,Urine Large (Negative); Clarity,Urine Turbid (Clear); Color,Urine Red (Yellow); Glucose,Urine (UA) Normal (Normal); Ketones,Urine Trace mg/dL (Negative); Leukocyte Esterase,Urine Small (Negative); Nitrite,Urine Negative (Negative); Protein,Urine 100 mg/dL (Neg-Trace); Specific Gravity,Urine 1.015 (1.010-1.025); Urobilinogen,Urine Normal (Normal)
[2018-05-15 23:04] LABS: Bacteria,Urine None Seen per hpf (None-Few); Hyaline Casts,Urine None Seen per lpf (None-Few); Squamous Epithelial Cell,Urine Many per lpf (None-Few); WBC,Urine 30-50 per hpf (0-3)
[2018-05-15 23:18] LABS: RBC,Urine TNTC per hpf (0-3)
[2018-05-16] MEDS: MetroNIDAZOLE 500 MG/100 ML 500 MG/100 ML BAG IVPB SCH ×3 (00:01→15:56)
[2018-05-16] MEDS: Metoclopramide 10 MG/2 ML VIAL IVP SCH ×4 (00:02→17:10)
[2018-05-16] MEDS: *HR* Metoprolol 5 MG/5 ML VIAL IVP SCH ×4 (00:02→17:10)
[2018-05-16] MEDS: Chloraseptic Spray 177 ML BOTTLE MM PRN (00:08)
[2018-05-16] MEDS: Acetaminophen IV 1,000 MG/100 ML INFUS..BTL IVPB SCH ×2 (04:00→10:24)
[2018-05-16] MEDS: Ipratropium Neb 0.5 MG NEBULIZER IH SCH ×5 (04:13→19:41)
[2018-05-16 04:25] LABS: Eosinophils # 0.4 K/mcL (0.0-0.6); Hematocrit 23.3 % (37.5-50.1); Hemoglobin 8.1 g/dL (12.9-16.9); Mean Corpuscular HGB Conc 34.8 g/dL (31.6-35.5); Mean Corpuscular Hemoglobin 29.9 pg (28.0-33.3); Platelet Count 605 K/mcL (140-400); Red Blood Count 2.71 M/mcL (4.19-5.50)
[2018-05-16 04:44] LABS: BUN/Creatinine Ratio 77 (6-26); Blood Urea Nitrogen 20 mg/dL (8-23); Calcium 7.7 mg/dL (8.6-10.3); Carbon Dioxide 26 mEq/L (23-29); Chloride 97 mEq/L (98-107); Glucose 139 mg/dL (70-105); Magnesium 1.7 mg/dL (1.6-2.6); Osmolality,Calculated 277 (280-300); Phosphorous 3.6 mg/dL (2.7-4.5); Potassium 3.3 mEq/L (3.5-5.1); Sodium 131 mEq/L (136-145); eGFR For Non-African Americans > 60 (> 60)
[2018-05-16 04:52] LABS: Lymphocytes # 2.2 K/mcL (0.6-4.6); Neutrophils # 15.7 K/mcL (1.6-8.9); Platelet Estimate Increased (Normal)
[2018-05-16] MEDS: Pantoprazole 40 MG VIAL IVP SCH (05:34)
--- NOTE | 2018-05-16 07:00 | Urology Progress Note ---
Date of Encounter: 05/16/18 Time of Encounter: 06:59 - Assessment and Plan (1) Gross hematuria Current Visit: Yes Status: Acute Assessment and plan: Will have patient keep his urine at bedside after voiding today. We will reassess at lunchtime regarding possible need for catheter. (2) Nocturia Current Visit: Yes Status: Acute (3) Weak urinary stream Current Visit: Yes Status: Acute Progress Note Narrative: Patient seen this morning. Patient states that urine cleared towards the end of yesterday but now the dark urine has returned. Urinalysis done last night revealed large blood and moderate bilirubin. Objective Initial Vital Signs Temp Pulse Resp BP Pulse Ox 97.6 F 100 16 83/48 97 04/26/18 13:10 04/26/18 13:10 04/26/18 13:10 04/26/18 13:10 04/26/18 13:10 - General physical appearance Present: well developed, no distress - Respiratory Present: normal expansion, normal respiratory effort - Abdomen Present: soft. Absent: tender - Labs 05/16/18 04:00 05/16/18 04:00 Diabetes panel 05/15/18 05/16/18 Range/Units 04:00 04:00 Sodium 132 L 131 L (136-145) mEq/L Potassium 3.7 3.3 L (3.5-5.1) mEq/L Chloride 99 97 L (98-107) mEq/L Carbon Dioxide 24 26 (23-29) mEq/L BUN 19 20 (8-23) mg/dL Creatinine 0.35 L 0.26 L (0.70-1.30) mg/dL Glucose 98 139 H (70-105) mg/dL Calcium 7.8 L 7.7 L (8.6-10.3) mg/dL Thyroid panel 05/15/18 Range/Units 04:00 TSH 2.378 (0.340-5.600) mcIU/mL Thyroxine (T4) 10.36 (4.60-10.50) mcg/dL Calcium panel 05/15/18 05/16/18 Range/Units 04:00 04:00 Calcium 7.8 L 7.7 L (8.6-10.3) mg/dL Phosphorus 3.6 (2.7-4.5) mg/dL Pituitary panel 05/15/18 05/16/18 Range/Units 04:00 04:00 Sodium 132 L 131 L (136-145) mEq/L Potassium 3.7 3.3 L (3.5-5.1) mEq/L Chloride 99 97 L (98-107) mEq/L Carbon Dioxide 24 26 (23-29) mEq/L BUN 19 20 (8-23) mg/dL Creatinine 0.35 L 0.26 L (0.70-1.30) mg/dL Glucose 98 139 H (70-105) mg/dL Calcium 7.8 L 7.7 L (8.6-10.3) mg/dL TSH 2.378 (0.340-5.600) mcIU/mL Thyroxine (T4) 10.36 (4.60-10.50) mcg/dL Adrenal panel 05/15/18 05/16/18 Range/Units 04:00 04:00 Sodium 132 L 131 L (136-145) mEq/L Potassium 3.7 3.3 L (3.5-5.1) mEq/L Chloride 99 97 L (98-107) mEq/L Carbon Dioxide 24 26 (23-29) mEq/L BUN 19 20 (8-23) mg/dL Creatinine 0.35 L 0.26 L (0.70-1.30) mg/dL Glucose 98 139 H (70-105) mg/dL Calcium 7.8 L 7.7 L (8.6-10.3) mg/dL - VTE Documentation of Mechanical Device: Intermittent pneumatic compression device Consult Discharge Plan - Plan Referrals: Breanna Ocampo, EARLY MORNING BABYSITTER [Advanced Practice Nurse] -
[2018-05-16] MEDS ORDERED: Lidocaine Jelly 6ml 1 APPL/6 ML JEL.PF.APP TP STA ×2 (08:11→14:44)
[2018-05-16] MEDS ORDERED: *HR* LORazepam 2 MG/ML VIAL IVP ONE (08:13)
[2018-05-16] MEDS: Furosemide 40 MG/4 ML VIAL IVP SCH ×2 (08:50→17:09)
[2018-05-16] MEDS: Fluconazole 100 MG/50 ML 100 MG/50 ML BAG IVPB SCH (08:52)
[2018-05-16] MEDS: cefTRIAXone 1,000 MG in Water for inj. (sterile) 20 ML 10 ML IVP SCH (08:53)
--- NOTE | 2018-05-16 09:15 | General Surgery Progress Note ---
Date of Encounter: 05/16/18 Time of Encounter: 07:15 - Assessment and Plan (1) Small bowel obstruction due to adhesions Current Visit: Yes Status: Acute Date of procedure: 05/10/18 Pre-op diagnosis: Small bowel obstruction Post-op diagnosis: same Procedure: Exporter laparotomy with lysis of adhesions 45 minutes Small bowel resection due to adhesion lysis Right colectomy Anesthesia: GETA Surgeon: Vignesh Bess POD #6 as above. Per further review with surgeon, patient has two anastomosis from surgery (small bowel and small bowel to ascending colon). Patient initially reported flatus by told different reports to this WEIGHBRIDGE OPERATOR and the bedside RN. After further review with the patient, he states he does not think he has passed gas he just "wanted the tube out." 2 jefry (the inferior most staple and superior to the umbilicus) were removed on 05/15/2018 for purulent drainage. This was an expected finding given his recent bowel surgery. The areas were packed with me salt ribbon and are significantly improved today. See wound care orders for further detail. PT reported his NG was painful in the nares. Noted minimal output and continued distention after repositioning by the WEIGHBRIDGE OPERATOR yesterday Pt is agreeable to to have the NG removed and replaced in the left nares. This was attempted, but the NG would not pass through the left nares. NG was attempted to be replaced in right nares. The NG was passed over the septum, and the patient was asked to drink a few sips of water (per straw). He immediately began coughing and then patient began having respiratory distress. He desatted to 85 on 4L NC. The procedure was stopped. He was supported with O2 per Mask and RT, supported to deep breath and cough. He was able to cough only a small amount of thing clear secretions. He stated he could not cough and this WEIGHBRIDGE OPERATOR called RT for breathing treatment and deep suction. Dr. Odom was also notified and immediately at bedside. Of note, per RT, he has been reusing the Accupap treatments, is not completing the IS, and is not able to clear his secretions. Reviewed with patient that these are necessary and he agreed (to Dr. Odom) that he would attempt. Pt asked for a "little break," before attempting to replace NG. WBC is slowly downtrending; diflucan added 05/15/2018 Hgb stable 8.1, with hematuria. Urology is following. He will likely need a swallow eval prior to any PO. Plan: -Continue supportive care and discomfort management while awaiting return of bowel function -NG to LIWS when patient is agreeable to have it replaced; will need replaced today -NPO -schedule Ofirmev and toradol; SL oxycodone for breakthrough pain -Continue aggressive pulm toileting and AccuPap per RT (CXR was obtained and is pending. Further treatment per primary team)-suspect aspiration of water in addition to fluid overload, pulm edema, COPD, possible lung ca, and poor patient participation. -continue reglan -Continue wound care: remove dressing and packing. Wash with antibacterial soap. Repack with 1/2 mesalt ribbon, cover with a dry dressing, tape tos ecure. -Apply abdominal binder as he is at risk for wound dehiscence (orderded 2017, and yet to be applied) -FROILAN drain care: Do not let the FROILAN dangle from the body. Please attach FROILAN to gown with safety pin. Strip lines Q8 hours at minimum. Maintain FROILAN bulb to suction. -Report any changes in FROILAN output. -Continue IV ATBX per primary team for pneumonia. No abdominal abscess is suspected. His drainage was expected incisional complication given his surgical procedures. -Serial abdominal exams -Repeat am labs -Continue TPN for severe protein malnutrition -okay for diuresis per primary team if indicated and crocker replacement if indicated -daily standing scale weights only -continue PT and OT -out of bed to chair at least TID (2) Umbilical hernia Current Visit: Yes Status: Acute Date of procedure: 04/28/18 Pre-op diagnosis: Recurrent Incisional hernia Post-op diagnosis: same Procedure: Robotic Recurrent Incisional hernia repair mesh Surgeon: Dr. Bess POD#18 as above. Brief clinical summary 05/08/2018: He has had a prolonged postoperative ileus. NG was removed on 05/02/2018 after patient had small BMS (following 2 doses of methylnatrexone and continued reglan ). He continued low-grade fevers (99.6), but on 05/05/2108 he spike a fever of 101.2. CT of chest, abdomen, and pelvis were obtained which noted significant dilation of mostly small bowel loops with a transition point in the pelvis, ventral hernia with fluid and a small amount of air suggestive of inflammation ( reviewed with attending surgeon who stated there was no evidence of strangulated hernia but more consistent with postoperative seroma and no indication to aspirate the periiumbilical swelling), no evidence of abscess, bilateral pleural effusions and consolidated changes, two focal areas of wall thickening in the bladder noted. He was recommended to have his NG replaced at this time, but he he refused. Of note on 05/05/2018, the patient did admit to being untruthful about his symptoms because he did not want the NG tube replaced and Of note, he did have an increase in fever and WBC on 05/04- coinciding with a 24 hour history or IV ATBX completed per original order. These were restarted and patient's WBC has improved (no results available for 05/08/2018). He is currently on Levo/ Flagyl Throughout the weekend he has had sips of ice chips, reports a bowel movement only after enema administration, and states he "might have passed gas through the night." He reports that his abdomen feels full, distended, achy, nauseated, but without vomiting. The area of erythema at the periumbilical area remains consistent with seroma. There is no evidence of abscess. An acute abdominal series was obtained on 05/08/2018 which noted no change in dilation of small bowel loops. refused NG placement until later in the day after two more physicians recommended NG placement. 250 ml clear fluids and air returned. 05/09/2018: NG placed 05/08/18. 750 ml output per NG. No improvement in abd distention, nausea, tympany, and remains without BS. No flatus, no BM. Weight noted (16.2 lbs WG since admission), unsure of accuracy, will check standing scale weight. +5.7L fluid balance, will check albumin, BNP, and CXR. Tachycardia resolved with BBs. WBC increased 13.4>>16.2 and without bandemia. hgb stable 9.4 and no overt signs of bleeding. His abd exam is nonperitoneal. He is tender to palpation at the umbilicus. The erythema remains inside the margins drawn; suspect reaction to seroma, but no clear indication to aspirate remains. There is no drainage or cellulits noted. Rectal temp 99.6. Blood cultures 04/26 and no growth; BC 05/06 pending. Remained on Levo/Flagyl ( previously cipro/flagyl); Echo 04/27/2018 with EF 55%, mild diastolic dysfunction, BBB; Oncology recommends outpatient follow-up for suspected right lung CA. CT abd/pelvis was repeated and reviewed with Dr. Bess. Watchful waiting and NG decompression. , he continued to have increased distention and was taken to the OR ( see SBO above). Plan: See A/P above Qualifiers: Obstruction and gangrene presence: with obstruction but without gangrene Qualified Code(s): K42.0 - Umbilical hernia with obstruction, without gangrene (3) Ileus, postoperative Current Visit: Yes Status: Acute Prolonged postoperative ileus; likely exacerbated by overall clinical picture, i.e. lack of patient participation, PNA, likely metastatic ca See above for further treatment recommendations (4) COPD (chronic obstructive pulmonary disease) Current Visit: Yes Status: Chronic Per primary team Qualifiers: COPD type: chronic bronchitis Chronic bronchitis type: unspecified Qualified Code(s): J42 - Unspecified chronic bronchitis (5) Electrolyte imbalance Current Visit: Yes Status: Acute per primary team replyte lytes as indicated Continue to follow (6) Protein calorie malnutrition Current Visit: Yes Status: Acute see a/p above Qualifiers: Protein-calorie malnutrition severity: severe Qualified Code(s): E43 - Unspecified severe protein-calorie malnutrition (7) Tachycardia Current Visit: Yes Status: Acute Per primary team. likely multifactorial (8) Pneumonia Current Visit: Yes Status: Suspected Per primary team, now with likely aspiration See above Qualifiers: Pneumonia type: due to unspecified organism Laterality: right Lung location: lower lobe of lung Qualified Code(s): J18.1 - Lobar pneumonia, unspecified organism Subjective Narrative: States abd pain is controlled, denies nausea, endorses abdominal swelling. Initially reports passing gas, but upon further questioning, he reports he is not sure and states, "I just wanted you to take the tube out." He denies burning with urination. He reports bloody urine Objective Vital Signs - Last 8 Hours Temp Pulse Resp BP Pulse Ox 05/16/18 08:00 15 96 05/16/18 06:42 98.0 F 105 15 143/86 96 05/16/18 05:04 130 135/69 05/16/18 04:13 18 95 05/16/18 03:33 98.3 F 109 15 165/80 95 Intake and Output 05/15/18 05/16/18 05/16/18 23:59 07:59 15:59 Intake Total 310 / 310 450 / 450 Output Total 1225 / 1225 385 / 385 Balance -915 / -915 65 / 65 Intake: IV Fluids 310 / 310 450 / 450 Rocephin 1,000 MG In Water for inj. (sterile) 10 ML @ 600 mls/ hr IVP DAILY [facility]IE Rx#:[id number] Ofirmev 1,000 mg/100 ml 1,000 200 / 200 100 / 100 mg In 100 ml @ 400 mls/hr IVPB Q6H [facility] Rx#:[id number] Intralipid 20% 250 ML @ 21 mls/ 250 / 250 hr IVPB DAILY@1700 [facility] Rx#: [id number] Flagyl Premix 500 MG/100 ML 500 100 / 100 100 / 100 mg In 100 ml @ 100 mls/hr IVPB Q8HR [facility]AT[facility] Rx#:[id number] Oral 0 / 0 0 / 0 Output: Urine 925 / 925 275 / 275 Gastric Drainage 300 / 300 100 / 100 R Nares 100 / 100 Wound Drainage 0 / 0 10 10 Left Abdomen 0 / 0 Other: Meal NPO Dinner Weight 74.389 kg Blood Glucose* 138 139 Patient Weight 05/16/18 23:59 Weight 74.389 kg VITAL SIGNS: Reviewed. See [employer] GENERAL: In mild distress. HEENT: Normocephalic, atraumatic, oropharynx is pink and moist, there is JVD noted. CHEST/RESPIRATORY: The thorax is free from signs of trauma. Lung sounds: wet, course, audible without stethoscope. CARDIAC: tachy heart rate. VASCULAR: No Edema. 2+ peripheral pulses. ABDOMEN: tympanic, distended (slightly more than yesterday), absent bowel sounds INCISION: Surgical incision is improved. Drainage remains in the packed areas, but the edema and erythema is improved. WOUNDS/DRAINS: FROILAN site is WNL. There is a small amount of serous drainage in the FROILAN, slightly green tinged. NG in the right nares. Minimal output. Nares is tender to palpation. MUSCULOSKELETAL: generalized weakness noted. He is edematous throughout. NEUROLOGIC EXAM: Alert and oriented x 3. Speech normal. Follows commands. PSYCHIATRIC: pre-emptively refuses therapy today stating, I'm grouchy and tired. " . SKIN: No rashes. - Labs 05/16/18 04:00 05/16/18 04:00 Diabetes panel 05/15/18 05/16/18 Range/Units 04:00 04:00 Sodium 132 L 131 L (136-145) mEq/L Potassium 3.7 3.3 L (3.5-5.1) mEq/L Chloride 99 97 L (98-107) mEq/L Carbon Dioxide 24 26 (23-29) mEq/L BUN 19 20 (8-23) mg/dL Creatinine 0.35 L 0.26 L (0.70-1.30) mg/dL Glucose 98 139 H (70-105) mg/dL Calcium 7.8 L 7.7 L (8.6-10.3) mg/dL Thyroid panel 05/15/18 Range/Units 04:00 TSH 2.378 (0.340-5.600) mcIU/mL Thyroxine (T4) 10.36 (4.60-10.50) mcg/dL Calcium panel 05/15/18 05/16/18 Range/Units 04:00 04:00 Calcium 7.8 L 7.7 L (8.6-10.3) mg/dL Phosphorus 3.6 (2.7-4.5) mg/dL Pituitary panel 05/15/18 05/16/18 Range/Units 04:00 04:00 Sodium 132 L 131 L (136-145) mEq/L Potassium 3.7 3.3 L (3.5-5.1) mEq/L Chloride 99 97 L (98-107) mEq/L Carbon Dioxide 24 26 (23-29) mEq/L BUN 19 20 (8-23) mg/dL Creatinine 0.35 L 0.26 L (0.70-1.30) mg/dL Glucose 98 139 H (70-105) mg/dL Calcium 7.8 L 7.7 L (8.6-10.3) mg/dL TSH 2.378 (0.340-5.600) mcIU/mL Thyroxine (T4) 10.36 (4.60-10.50) mcg/dL Adrenal panel 05/15/18 05/16/18 Range/Units 04:00 04:00 Sodium 132 L 131 L (136-145) mEq/L Potassium 3.7 3.3 L (3.5-5.1) mEq/L Chloride 99 97 L (98-107) mEq/L Carbon Dioxide 24 26 (23-29) mEq/L BUN 19 20 (8-23) mg/dL Creatinine 0.35 L 0.26 L (0.70-1.30) mg/dL Glucose 98 139 H (70-105) mg/dL Calcium 7.8 L 7.7 L (8.6-10.3) mg/dL - VTE Documentation of Mechanical Device: Intermittent pneumatic compression device Consult Discharge Plan - Plan Referrals: Breanna Ocampo CONTRACT SERVICEMAN [Advanced Practice Nurse] -
[2018-05-16] MEDS: Albumin 25% 25gram/100mL 25 GM/100 ML IV.SOLN IVC SCH ×4 (11:24→15:55)
[2018-05-16] MEDS ORDERED: Isovue-370 500 ML INFUS..BTL IV ONE (11:40)
[2018-05-16] MEDS ORDERED: Acetaminophen IV 1,000 MG/100 ML INFUS..BTL IVPB PRN (14:46)
--- NOTE | 2018-05-16 15:17 | Internal Med Progress Note ---
Hospitalist Progress Note - Encounter Date of Encounter: 05/16/18 Time of Encounter: 08:15 - Subjective Interval History: Patient was awake and alert. He became dyspneic this morning and was placed on facemask. He continues to have some cough and shortness of breath. Denies any chest pain. Has not had any bowel movement or passing gas. NG tube was removed this morning and plan is to replace it later. No fever reported overnight. - Exam Vitals: Temp Pulse Resp BP Pulse Ox 98.2 F 118 18 157/79 95 05/16/18 14:26 05/16/18 14:26 05/16/18 14:26 05/16/18 14:26 05/16/18 14:26 Exam: General: Patient is alert, moderate respiratory distress, oriented x 3 Head: atraumatic, normocephalic, Eye: normal appearance, PERRL, no scleral icterus, no conjunctival injection ENT: mucous membranes moist, nasal mucosa is blood tinged and erythematous Neck: normal inspection, trachea midline, full ROM, no carotid bruits Chest: normal inspection, symmetric chest rise Respiratory: Bilateral wheezing and crackles. Cardiovascular: Regular rate and rhythm. s1 and s2 No clicks, rubs, gallops, or murmurs. No pedal edema Abdomen: Abdomen is soft, distended, generalized tenderness. Decreased bowel sounds Musculoskeletal: Spontaneously moving all extremities, pedal edema present bilaterally Skin: warm, dry, intact. Neuro: Alert oriented x 3 normal cranial nerves, no focal deficits Psych: Patient's affect is normal - Assessment and Plan (1) Acute respiratory failure with hypoxia Current Visit: Yes Status: Acute Assessment and Plan: Patient continues to have significant shortness of breath and hypoxia related to COPD exacerbation. Chest x-ray done today shows bibasilar effusion. Started on diuretics but has not had good urine output. Continue O2 supplementation. CT of the abdomen and pelvis shows bilateral pleural effusions. We will consult IR for thoracentesis. Also patient may have aspirated this morning per surgery. We will continue antibiotics for now. Monitor for signs and symptoms of sepsis. (2) Small bowel obstruction Current Visit: Yes Status: Acute Assessment and Plan: Status post-robotic incisional hernia repair on 04/28 and exploratory laparoscopy with lysis of adhesions, small bowel resection and right colectomy on 05/10. Patient continues to have postoperative ileus with no significant improvement in bowel sounds. No flatus or stools. Surgery following. On TPN currently. (3) Gross hematuria Current Visit: Yes Status: Acute Assessment and Plan: Urology following. Hemoglobin levels remain stable. Patient continues to have hematuria. We will follow urology recommendations. (4) COPD (chronic obstructive pulmonary disease) Current Visit: Yes Status: Chronic Assessment and Plan: Continue bronchodilators. We will also order chest percussion therapy and Mucomyst. Encouraged use of incentive spirometry. (5) Umbilical hernia Current Visit: Yes Status: Acute Assessment and Plan: Patient underwent robotic-assisted hernia repair earlier during this hospital stay. Surgery continues to follow patient. (6) NUNU (acute kidney injury) Current Visit: Yes Status: Resolved (7) SIRS (systemic inflammatory response syndrome) Current Visit: Yes Status: Resolved (8) Electrolyte imbalance Current Visit: Yes Status: Acute Assessment and Plan: Replacing intravenously through TPN (9) Essential hypertension Current Visit: Yes Status: Chronic Assessment and Plan: Blood pressure elevated this afternoon. Metoprolol dosage had been increased yesterday. (10) Pneumonia Current Visit: Yes Status: Suspected Assessment and Plan: Continue Rocephin, Flagyl for another day. If patient's WBC count remained stable and patient does not develop any signs of sepsis, we will stop antibiotics tomorrow. Patient has been on antibiotics pretty much during his entire stay here. (11) Lung nodule seen on imaging study Current Visit: Yes Status: Chronic Assessment and Plan: Spiculated lung nodule seen on chest CT done earlier disease in this hospitalization. Concerning for malignancy. If thoracentesis is done tomorrow , will send fluid for cytology. (12) Tachycardia Current Visit: Yes Status: Acute Assessment and Plan: Persistent. Likely due to continued respiratory distress along with underlying comorbidities and anemia. On metoprolol 7.5 mg twice daily. DVT Prophylaxis: SCDs alone given underlying hematuria - Time Spent with Patient Total time spent is greater than 50% in coordination of care (as documented) at patient's floor/unit and/or counseling patient: Plan of Care Discussed with: patient Internal Medicine: Result - Labs CBC & Chem 7: 05/16/18 04:00 05/16/18 04:00 Labs: Short CBC 05/16/18 Range/Units 04:00 WBC 18.2 H (4.3-11.1) K/mcL Hgb 8.1 L (12.9-16.9) g/dL Hct 23.3 L (37.5-50.1) % Plt Count 605 H (140-400) K/mcL Neutrophils # 15.7 H (1.6-8.9) K/mcL BMP 05/16/18 04:00 Sodium 131 L Potassium 3.3 L Chloride 97 L Carbon Dioxide 26 BUN 20 Creatinine 0.26 L Glucose 139 H Calcium 7.7 L Urine 05/15/18 Range/Units 22:48 Urine Color Red A (Yellow) Urine Clarity Turbid A (Clear) Urine pH 6.0 (5.0-8.0) pH Units Ur Specific [place] 1.015 (1.010-1.025) Urine Protein 100 H (Neg-Trace) mg/dL Urine Glucose (UA) Normal (Normal) mg/dL - ABG Interpretation ABG results: PT/INR, D-dimer PT 13.2 Seconds (9.4-12.1) H 04/26/18 13:34 - Impressions Impressions Chest X-Ray 05/16/18 07:58 IMPRESSION: Persistent bilateral pleural effusions with pulmonary vascular congestion. No significant change identified. D/ / 05/16/2018 11:54:42 Hubert Burns MD / milan Interpreting Provider: Hubert Burns MD Abdomen/Pelvis CT 05/16/18 11:40 IMPRESSION: 1. Postsurgical changes related to distal small bowel anastomosis in the right lower quadrant as described above. No bowel obstruction or free air. 2. However, the patient has developed 2 new fluid collections in the lower abdomen. There are no gas bubbles within these collections. This could represent postoperative seroma but early abscess cannot be excluded. 3. Hyperdense material in the urinary bladder likely related to blood products/clot. Correlation with hematuria is recommended. 4. Moderate bilateral pleural effusions with bibasilar compressive atelectasis. Follow-up chest radiographs recommended. 5. Stable left adrenal nodule, likely an adenoma. D/ / Nate Wilder MD / Nate Wilder MD Interpreting Provider: Nate Wilder MD - VTE Documentation of Mechanical Device: Intermittent pneumatic compression device Consult Discharge Plan - Plan Referrals: Breanna Ocampo CNP [Advanced Practice Nurse] - (4) COPD (chronic obstructive pulmonary disease) Qualifiers: COPD type: chronic bronchitis Chronic bronchitis type: unspecified Qualified Code(s): J42 - Unspecified chronic bronchitis (5) Umbilical hernia Qualifiers: Obstruction and gangrene presence: with obstruction but without gangrene Qualified Code(s): K42.0 - Umbilical hernia with obstruction, without gangrene (10) Pneumonia Qualifiers: Pneumonia type: due to unspecified organism Laterality: right Lung location : lower lobe of lung Qualified Code(s): J18.1 - Lobar pneumonia, unspecified organism
[2018-05-16] MEDS ORDERED: Clinimix E 5%-15% SOLUTION 2,000 ML with MVI, adult with vitamin K 10 ML, Trace Eleme... IVC SCH (17:00)
--- NOTE | 2018-05-16 19:38 | Event Note ---
Date of Encounter: 05/16/18 Time of Encounter: 19:38 Diagnosis: Hematuria Mr. Freed developed gross hematuria today. I placed a 22-[place] 3-way catheter. I irrigated out a fair amount of blood clot. Continuous bladder irrigation was initiated.
[2018-05-16] MEDS: OXYCODONE Oral CONC 10 MG/0.5 ML ORAL.SYG SL PRN (20:23)
[2018-05-16] MEDS ORDERED: Furosemide 20 MG/2 ML VIAL IVP ONE (23:38)
[2018-05-17] MEDS: Ipratropium Neb 0.5 MG NEBULIZER IH SCH ×3 (00:14→07:52)
[2018-05-17] MEDS: Levalbuterol 1 PUFF INHALER IH SCH ×2 (00:14→07:52)
[2018-05-17] MEDS: MetroNIDAZOLE 500 MG/100 ML 500 MG/100 ML BAG IVPB SCH ×2 (00:54→08:14)
[2018-05-17] MEDS: Metoclopramide 10 MG/2 ML VIAL IVP SCH ×5 (00:56→23:34)
[2018-05-17] MEDS: *HR* Metoprolol 5 MG/5 ML VIAL IVP SCH ×5 (01:08→23:34)
[2018-05-17] MEDS: Pantoprazole 40 MG VIAL IVP SCH (06:01)
[2018-05-17 06:39] LABS: INR 1.4
[2018-05-17 06:40] LABS: Basophils # 0.1 K/mcL (0.0-0.2); Basophils % 0.3 %; Eosinophils # 0.3 K/mcL (0.0-0.6); Eosinophils % 1.7 %; Hemoglobin 7.4 g/dL (12.9-16.9); Immature Granulocytes % 7.7 % (0-4); Lymphocytes # 1.4 K/mcL (0.6-4.6); Lymphocytes % 7.8 %; Mean Corpuscular HGB Conc 33.6 g/dL (31.6-35.5); Mean Corpuscular Hemoglobin 30.3 pg (28.0-33.3); Mean Corpuscular Volume 90.2 fL (83.0-100.0); Mean Platelet Volume 10.2 fL (9.4-12.4); Monocytes # 1.5 K/mcL (0.0-1.3); Monocytes % 8.5 %; Platelet Count 574 K/mcL (140-400); Red Blood Count 2.44 M/mcL (4.19-5.50); Red Cell Distribution Width 15.2 % (11.5-14.5)
[2018-05-17 06:41] LABS: Alanine Aminotransferase 8 Units/L (7-52); Albumin 3.7 g/dL (3.5-5.7); Albumin/Globulin Ratio 1.2 (1.1-2.2); Alkaline Phosphatase 275 Units/L (34-104); Aspartate Amino Transferase 11 Units/L (13-39); BUN/Creatinine Ratio 67 (6-26); Bilirubin,Total 0.4 mg/dL (0.3-1.0); Blood Urea Nitrogen 22 mg/dL (8-23); Calcium 8.3 mg/dL (8.6-10.3); Carbon Dioxide 29 mEq/L (23-29); Chloride 95 mEq/L (98-107); Glucose 126 mg/dL (70-105); Magnesium 1.9 mg/dL (1.6-2.6); Osmolality,Calculated 281 (280-300); Phosphorous 3.5 mg/dL (2.7-4.5); Potassium 3.5 mEq/L (3.5-5.1); Sodium 133 mEq/L (136-145); Total Protein 6.7 g/dL (6.4-8.9); eGFR For Non-African Americans > 60 (> 60)
[2018-05-17 07:59] LABS: Platelet Estimate Increased (Normal); Reactive Lymphocytes Present (Not Present)
[2018-05-17] MEDS: Fluconazole 100 MG/50 ML 100 MG/50 ML BAG IVPB SCH (08:13)
[2018-05-17] MEDS: Furosemide 40 MG/4 ML VIAL IVP SCH ×3 (08:14→16:14)
[2018-05-17] MEDS: cefTRIAXone 1,000 MG in Water for inj. (sterile) 20 ML 10 ML IVP SCH (08:14)
[2018-05-17 08:18] LABS: CKMB Percent NOT DONE (0.0-5.0)
--- NOTE | 2018-05-17 09:52 | Urology Progress Note ---
Date of Encounter: 05/17/18 Time of Encounter: 09:00 - Assessment and Plan (1) Gross hematuria Current Visit: Yes Status: Acute Assessment and plan: Patient is a 67-year-old male who presents with gross hematuria. At this time , the patient is being transferred to the intensive care unit for pulmonary support. I have spoken with Dr. Woodruff and plan to return this afternoon to hand irrigate the patient's catheter. Progress Note Subjective: hematuria Narrative: Patient seen and examined sitting upright in bed with nursing staff at bedside. Patient is being prepared for ICU transfer secondary to pulmonary issues. Patient planning to undergo thoracocentesis later today. Continuous bladder irrigation minimally flowing. Urine in the tubing is transparent fruit punch. Patient denies any pain or feeling of obstruction with the urinary catheter. Objective Initial Vital Signs Temp Pulse Resp BP Pulse Ox 97.6 F 100 16 83/48 97 04/26/18 13:10 04/26/18 13:10 04/26/18 13:10 04/26/18 13:10 04/26/18 13:10 - General physical appearance Present: chronically ill - Respiratory Present: other (audible breathing; moderate respiratory effort ). Absent: normal respiratory effort - Abdomen Present: soft, non tender - Genitourinary Present: other (indwelling catheter with transparent fruit punch urine in tubing ) Urine Appearance: Present: Clear, Hematuria - Integumentary Present: no rash, no abnormal pigmentation - Musculoskeletal Present: other (no pedal edema ) - Psychiatric Present: oriented to time, oriented to person, oriented to place, speech is normal - Labs 05/17/18 04:00 05/17/18 04:00 Diabetes panel 05/17/18 Range/Units 04:00 Sodium 133 L (136-145) mEq/L Potassium 3.5 (3.5-5.1) mEq/L Chloride 95 L (98-107) mEq/L Carbon Dioxide 29 (23-29) mEq/L BUN 22 (8-23) mg/dL Creatinine 0.33 L (0.70-1.30) mg/dL Glucose 126 H (70-105) mg/dL Calcium 8.3 L (8.6-10.3) mg/dL AST 11 L (13-39) Units/L ALT 8 (7-52) Units/L Alkaline Phosphatase 275 H (34-104) Units/L Albumin 3.7 (3.5-5.7) g/dL Calcium panel 05/17/18 Range/Units 04:00 Calcium 8.3 L (8.6-10.3) mg/dL Phosphorus 3.5 (2.7-4.5) mg/dL Albumin 3.7 (3.5-5.7) g/dL Pituitary panel 05/17/18 Range/Units 04:00 Sodium 133 L (136-145) mEq/L Potassium 3.5 (3.5-5.1) mEq/L Chloride 95 L (98-107) mEq/L Carbon Dioxide 29 (23-29) mEq/L BUN 22 (8-23) mg/dL Creatinine 0.33 L (0.70-1.30) mg/dL Glucose 126 H (70-105) mg/dL Calcium 8.3 L (8.6-10.3) mg/dL Adrenal panel 05/17/18 Range/Units 04:00 Sodium 133 L (136-145) mEq/L Potassium 3.5 (3.5-5.1) mEq/L Chloride 95 L (98-107) mEq/L Carbon Dioxide 29 (23-29) mEq/L BUN 22 (8-23) mg/dL Creatinine 0.33 L (0.70-1.30) mg/dL Glucose 126 H (70-105) mg/dL Calcium 8.3 L (8.6-10.3) mg/dL Total Bilirubin 0.4 (0.3-1.0) mg/dL AST 11 L (13-39) Units/L ALT 8 (7-52) Units/L Alkaline Phosphatase 275 H (34-104) Units/L Albumin 3.7 (3.5-5.7) g/dL - VTE Documentation of Mechanical Device: Intermittent pneumatic compression device Consult Discharge Plan - Plan Referrals: Breanna Ocampo, OVERNIGHT HOUSEPERSON [Advanced Practice Nurse] -
[2018-05-17 10:01] LABS: ABG Base Excess 8 mEq/L (-2 to 3); ABG HCO3 32 mEq/L (21-27); ABG Oxygen Saturation 94 % (95-98); ABG PCO2 39 mmHg (35-45); ABG PH 7.52 pH Units (7.32-7.45); ABG PO2 62 mmHg (85-104); ABG TCO2 33 mEq/L (20-26)
--- NOTE | 2018-05-17 10:11 | Internal Med Progress Note ---
Hospitalist Progress Note - Encounter Date of Encounter: 05/17/18 Time of Encounter: 08:15 - Subjective Interval History: Patient complaining of worsening shortness of breath this morning. Denies any chest pain. Does feel like he needs to cough but unable to cough up anything. Also concerned about NG tube and not being able to eat. Has not passed any flatus or stools yet. Continues to have hematuria but it appears to be clearing up since he was started on bladder irrigation yesterday. - Exam Vitals: Temp Pulse Resp BP Pulse Ox 97.2 F L 102 19 132/76 94 05/17/18 06:59 05/17/18 06:59 05/17/18 07:54 05/17/18 06:59 05/17/18 08:45 Exam: General: Patient is alert, moderate to severe distress, oriented x 3 Head: atraumatic, normocephalic, Eye: normal appearance, PERRL, ENT: mucous membranes moist, normal external ear exam, nasogastric tube in place Neck: normal inspection, trachea midline, full ROM, no carotid bruits Chest: normal inspection, symmetric chest rise Respiratory: Using accessory muscles. Good respiratory effort. Decreased breath sounds at both bases with crackles. Cardiovascular: Regular rate and rhythm. s1 and s2 No clicks, rubs, gallops, or murmurs. No pedal edema Abdomen: Abdomen is distended, generalized tenderness, Musculoskeletal: Spontaneously moving all extremities, pedal edema present Skin: warm, dry, intact. Neuro: Alert oriented x 3 normal cranial nerves, no focal deficits Psych: Patient's affect is anxious - Assessment and Plan (1) Acute respiratory failure with hypoxia Current Visit: Yes Status: Acute Assessment and Plan: Patient continues to have shortness of breath which has worsened today. We will consult pulmonology for evaluation. Patient does have bilateral pleural effusion which appears to be worsening. Thoracentesis ordered for today. We will follow results. Send sample for cytology to evaluate for any malignant cells. We will transfer patient to ICU/stepdown unit for further management. Patient is at high risk for complications in acute and sudden worsening of clinical condition. (2) Small bowel obstruction Current Visit: Yes Status: Acute Assessment and Plan: Status post-robotic incisional hernia repair on 04/28 and exploratory laparoscopy with lysis of adhesions, small bowel resection and right colectomy on 8/1. Continues to have postoperative ileus with decreased bowel sounds and my examination today. No flatus or stools past year. NG tube to low intermittent suction. CT of the abdomen and pelvis done yesterday showed no bowel obstruction. He does have 2 fluid collections in the lower abdomen which are most likely seroma. Surgery following. (3) Gross hematuria Current Visit: Yes Status: Acute Assessment and Plan: On bladder irrigation currently. Holding anticoagulation. We will continue to monitor hemoglobin levels and transfuse if Decreases further below 7. (4) COPD (chronic obstructive pulmonary disease) Current Visit: Yes Status: Chronic Assessment and Plan: On bronchodilators. Will order Mucomyst. Chest percussion therapy. Pulmonology consult. Continue O2 supplementation (5) Umbilical hernia Current Visit: Yes Status: Acute Assessment and Plan: Status post surgeries for small bowel obstruction and incisional hernia repair. Continue supportive care. Awaiting return of bowel function. Surgery following. (6) NUNU (acute kidney injury) Current Visit: Yes Status: Resolved (7) SIRS (systemic inflammatory response syndrome) Current Visit: Yes Status: Resolved Assessment and Plan: Patient continues to be tachycardic but has not had any new episodes of fever or chills. WBC count is also improved today. Consider de-escalating/stopping antibiotics at this time. (8) Electrolyte imbalance Current Visit: Yes Status: Acute Assessment and Plan: Will replete with TPN (9) Essential hypertension Current Visit: Yes Status: Chronic Assessment and Plan: Blood pressure is well controlled at this time. (10) Pneumonia Current Visit: Yes Status: Acute Assessment and Plan: Patient has been on antibiotics for several days now. WBC count appears to be trending down. At this time I think we can stop her de-escalate antibiotics completely. Will discuss further with pulmonology and surgery. (11) Lung nodule seen on imaging study Current Visit: Yes Status: Chronic Assessment and Plan: Spiculated nodule noted on chest CT. Concerning for malignancy. If thoracentesis is done today, will send sample for cytology. Follow up with cancer Center after discharge. (12) Tachycardia Current Visit: Yes Status: Acute Assessment and Plan: Patient has been tachycardic since hospitalization. Could be related to underlying anemia with acute illness. He is on beta deisy-metoprolol 7.5 mg every 6 hours intravenously as he is nothing by mouth. (13) Protein calorie malnutrition Current Visit: Yes Status: Acute Assessment and Plan: Due to comorbidities, surgery and slow return of bowel function. On TPN. DVT Prophylaxis: SCDs alone as patient is having hematuria - Time Spent with Patient Total time spent is greater than 50% in coordination of care (as documented) at patient's floor/unit and/or counseling patient: Plan of Care Discussed with: patient Internal Medicine: Result - Labs CBC & Chem 7: 05/17/18 04:00 05/17/18 04:00 Labs: Short CBC 05/17/18 Range/Units 04:00 WBC 17.5 H (4.3-11.1) K/mcL Hgb 7.4 L (12.9-16.9) g/dL Hct 22.0 L (37.5-50.1) % Plt Count 574 H (140-400) K/mcL Neutrophils # 13.0 H (1.6-8.9) K/mcL BMP 05/17/18 04:00 Sodium 133 L Potassium 3.5 Chloride 95 L Carbon Dioxide 29 BUN 22 Creatinine 0.33 L Glucose 126 H Calcium 8.3 L Cardiac Enzymes 05/14/18 Range/Units 10:30 CK-MB (CK-2) 2.1 (0.0-5.0) ug/L Liver Function 05/17/18 Range/Units 04:00 Total Bilirubin 0.4 (0.3-1.0) mg/dL AST 11 L (13-39) Units/L ALT 8 (7-52) Units/L Alkaline Phosphatase 275 H (34-104) Units/L Albumin 3.7 (3.5-5.7) g/dL - ABG Interpretation ABG results: ABG ABG pH 7.52 pH Units (7.32-7.45) H 05/17/18 09:58 ABG pCO2 39 mmHg (35-45) 05/17/18 09:58 ABG pO2 62 mmHg (85-104) L 05/17/18 09:58 ABG O2 Saturation 94 % (95-98) L 05/17/18 09:58 PT/INR, D-dimer PT 16.0 Seconds (9.4-12.1) H 05/17/18 04:00 - Impressions Impressions Chest X-Ray 05/16/18 07:58 IMPRESSION: Persistent bilateral pleural effusions with pulmonary vascular congestion. No significant change identified. D/ / 05/16/2018 11:54:42 Hubert Burns MD / milan Interpreting Provider: Hubert Burns MD Abdomen/Pelvis CT 05/16/18 11:40 IMPRESSION: 1. Postsurgical changes related to distal small bowel anastomosis in the right lower quadrant as described above. No bowel obstruction or free air. 2. However, the patient has developed 2 new fluid collections in the lower abdomen. There are no gas bubbles within these collections. This could represent postoperative seroma but early abscess cannot be excluded. 3. Hyperdense material in the urinary bladder likely related to blood products/clot. Correlation with hematuria is recommended. 4. Moderate bilateral pleural effusions with bibasilar compressive atelectasis. Follow-up chest radiographs recommended. 5. Stable left adrenal nodule, likely an adenoma. D/ / Nate Wilder MD / Nate Wilder MD Interpreting Provider: Nate Wilder MD X-Ray 05/16/18 15:26 IMPRESSION: Portions of the lungs visualized demonstrate findings typical of edema, correlate with chest radiograph. NG tube extends below the left hemidiaphragm, into the upper abdomen, tip overlying the expected level of the stomach. D/ / José Antonio Castellanos / José Antonio Castellanos Interpreting Provider: José Antonio Castellanos - VTE Documentation of Mechanical Device: Intermittent pneumatic compression device Consult Discharge Plan - Plan Referrals: Breanna Ocampo, SERVICE RIG OPERATOR [Advanced Practice Nurse] - (4) COPD (chronic obstructive pulmonary disease) Qualifiers: COPD type: chronic bronchitis Chronic bronchitis type: unspecified Qualified Code(s): J42 - Unspecified chronic bronchitis (5) Umbilical hernia Qualifiers: Obstruction and gangrene presence: with obstruction but without gangrene Qualified Code(s): K42.0 - Umbilical hernia with obstruction, without gangrene (10) Pneumonia Qualifiers: Pneumonia type: due to unspecified organism Laterality: right Lung location : lower lobe of lung Qualified Code(s): J18.1 - Lobar pneumonia, unspecified organism (13) Protein calorie malnutrition Qualifiers: Protein-calorie malnutrition severity: severe Qualified Code(s): E43 - Unspecified severe protein-calorie malnutrition
[2018-05-17] MEDS: Ipratropium/Albuterol Neb 3 ML IH SCH ×4 (11:08→23:39)
--- NOTE | 2018-05-17 11:21 | Procedure Note ---
<Rashmi Polanco - Last Filed: 05/17/18 11:14> Date of procedure: 05/17/18 Pre-op diagnosis: Pleural Effusion Post-op diagnosis: same Procedure: Area of pleural effusion was identified by ultrasound and site was marked. Area over left back was prepped and draped in normal non-sterile technique, and anesthetized using 5cc of lidocaine. A 20 guage needle/catheter was advanced into the pleural space and beny fluid was seen in the syringe. Approximately 1000cc of yellow fluid was drained. Pt tolerated the procedure well, EBL was none. Post-procedure chest xray showed no signs of pneumothorax and decreased left pleural effusion. Specimen was sent to lab. Anesthesia: local Surgeon: Rashmi Polanco Was there an press operator assistant present: Yes Textile Artist: Hubert Castro Estimated blood loss (cc): 2 Specimen: Pleural Fluid Condition: stable Disposition: ICU <Tay Farley - Last Filed: 05/17/18 14:59> Procedure: Present during the entire procedure and i assisted with critical portions of the procedure.
[2018-05-17 11:34] LABS: Lactate Dehydrogenase 194 Units/L (140-271)
--- NOTE | 2018-05-17 11:43 | Pulmonology Consult Note ---
<Denis Perry - Last Filed: 05/17/18 17:46> Date of Encounter: 05/17/18 Time of Encounter: 11:00 Assessment and Plan (1) Acute respiratory failure with hypoxia Current Visit: Yes Status: Acute - patient was admitted to the ICU because of SOB on the floor. Was treated with pneumonia treated with Rocephin and Flagyl for 7 days) - his chest x ray showed bibasilar effusion - Currently s/p thoracentesis- drained 1000mL fluid- the fluid studies showed it was a transudate (LDH pleural: 63 LDH serum: 194) - patient currently not SOB, no chest pain. - currently on 6L of high flow oxygen, continue O2 supplementation (2) Pleural effusion Current Visit: Yes Status: Acute - his pleural effusion could be likely to his pneumonia which was found on his chest CT - patient was being treated with Rocephin (day 5) and Flagyl. Patient was also found to have a 11m spiculated nodule at the lateral aspect of the joellen apex with concerns for malignancy - patient's CXR showed persistent bilateral pleural effusion with pulmonary vascular congestion suggestive of pulmonary edema - currently he is s/p thoracentesis- drained approximately 1000mL of the pleural fluid- patient tolerated the procedure well . - cytology studies showed that the pleural effusion was transudative (LDH pluera /LDH serum < 0.6 = 0.32)- - will benefit from duonebs, incentive spirometry, currently on Furosemide 40 mg IV TID - clinically he doesn't seem to manifest any signs of pneumonia- patient is aferile, no SOB, no sputum production, no bandemia, no egophony on phyiscl exam - however, if he does develop PNA symptoms- we can start him on Abx - potentially to cover for HACP at this point because he has been in the hospital for a long time now. (3) Lung nodule Current Visit: Yes Status: Acute - lung nodule could be either due to an underlying infection or could be malignancy secondary to his extensive smoking Hx (50 yrs) - patient was found to have 11mm spiculated lung nodule in the apex of his R lung - as per the Fleischner criteria , his lung nodule is > 6cm and is a smoker for the last 60 yrs. This puts into the high risk category, therefore needs an outpatient follow-up with a Deckhand for a repeat CT within 3months , or tissue sampling. (4) Pneumonia Current Visit: Yes Status: Acute - patient has a Hx of COPD, has a smoking Hx of 50 pack yrs, chest CT showed suspected pneumonia due to atelectasis - patient was on IV antibiotics Levofloxacin and Flagyl (05/09) , Rocephin was added later . - currently patient doesn't seem to be manifesting any symptoms of PNA- afebrile , no sputum production, cough, no bandemia in his lab, no wheezing or ronchi, although he does have leukocytosis, which is trending down at the moment (18.5- > 18.6-> 18.5->18.2->17.5), but the leukocytosis could be secondary to his recent surgery - with no pneumonia symptoms, it would be reasonable to stop his Abx regimen. Should he show any pneumonia symptoms like sputum production, fever, SOB we can start him on Abx to cover for HCAP Qualifiers: Pneumonia type: due to unspecified organism Laterality: right Lung location: lower lobe of lung Qualified Code(s): J18.1 - Lobar pneumonia, unspecified organism (5) COPD (chronic obstructive pulmonary disease) Current Visit: Yes Status: Chronic - patient has a Hx of COPD - currently does ot seem to be manifesting any AECOPD- no new onset sputum production, no increase in the frequency of cough. - continue duonebs q4h Qualifiers: COPD type: chronic bronchitis Chronic bronchitis type: unspecified Qualified Code(s): J42 - Unspecified chronic bronchitis (6) DVT prophylaxis Current Visit: Yes Status: Acute EPCDs History of Present Illness Consult date: 05/17/18 Chief complaint: SOB History of present illness: This is a 67 y o male with a PMHx of chronic COPD, pneumonia, lung nodule, small bowel obstruction (s/p post-robotic hernia repair on 04/28 and exploratory laparoscopy with lysis of adhesions ) who was put on a Pulmonology consult because of shortness of breath that was more prominent yesterday. According to the pervious providers during the current hospital stay, patient underwent Abx treatment for his pneumonia since 05/09 and recently completed his Abx course. Patient was found to be dyspnic yesterday but no SOB or chest pain and was placed on a facemask. A chest X ray showed the bibasilar effusion which was confirmed by his CT findings. Patient was put on diuretics (furosemide 40 mg ). Patient eventually underwent Left sided thoracentesis this AM and approximately 1000mL of the pleural fluid was drained. The cytology results showed it was a transudate. Currently, patient continues to be on Furosemide 40 mg TID. Past Med Surg Social Fam HX - Past Medical History Medical history: COPD, GERD, hyperlipidemia, hypertension Additional medical history: polio Psychiatric history: no psych history - Past Surgical History Surgical History: appendectomy (open- perforated appendicitis) Additional surgical history: right hip repair - Social History Smoking Status: Current every day smoker Smokeless Tobacco Status: No Alcohol use: heavy (admits to 3-4 beers/day) Drug use: none - Family History Mother History Unknown: Yes Hx Family Cardiac Disorders: Yes (sister) Hx Family Respiratory Disorders: Yes (asthma) Hx Family Cancer: No Hx Family GI Disorders: No Hx Family Endocrine Disorder: No Hx Family Neuromuscular Disorders: No Hx Family Neurologic Disorders: No Hx Family HEENT Disorders: No Hx Family Autoimmune Disorders: No Medications and Allergies Ipratropium/Albuterol Sulfate [Combivent Respimat Inhal [place]] 1 puff IH QID 10/26 [History] Loratadine [Allergy Relief] 10 mg PO DAILY 09/09/17 [History] Metoprolol Succinate 25 mg PO DAILY 09/09/17 [History] Montelukast [Singulair] 10 mg PO DAILY 09/09/17 [History] Ranitidine HCl [Acid Product Steward] 150 mg PO BID 09/09/17 [History] Simvastatin [Zocor] 40 mg PO HS 09/09/17 [History] 3 Allergy/AdvReac Type Severity Reaction Status Date / Time Penicillins Allergy See Verified 04/10/18 12:50 Comments All Systems: The remainder of the systems were reviewed and are negative Physical Examination Vital Signs: Vital Signs, Last 4 Hours Temp Pulse Resp BP Pulse Ox 05/17/18 11:09 16 94 05/17/18 11:00 98.5 F 116 24 120/71 98 05/17/18 08:45 94 05/17/18 07:54 19 94 General appearance: no acute distress (good mentaiton, A&O*3) Effort: mildly labored Auscultation: bilateral: rhonchi (no rales, or wheezes) Cardiovascular: regular rate and rhythm (no gallops, murmurs or rubs) Gastrointestinal: soft (Abdomen is soft, distended, generalized tenderness. Decreased bowel sounds) Integumentary: normal (warm, dry, intact) Extremities: no cyanosis, no edema, no clubbing Results - Laboratory Findings CBC and BMP: 05/17/18 04:00 05/17/18 04:00 ABG ABG pH 7.52 pH Units (7.32-7.45) H 05/17/18 09:58 ABG pCO2 39 mmHg (35-45) 05/17/18 09:58 ABG pO2 62 mmHg (85-104) L 05/17/18 09:58 ABG O2 Saturation 94 % (95-98) L 05/17/18 09:58 PT/INR, D-dimer PT 16.0 Seconds (9.4-12.1) H 05/17/18 04:00 Abnormal lab findings: Abnormal lab results WBC 17.5 K/mcL (4.3-11.1) H 05/17/18 04:00 RBC 2.44 M/mcL (4.19-5.50) L 05/17/18 04:00 Hgb 7.4 g/dL (12.9-16.9) L 05/17/18 04:00 Hct 22.0 % (37.5-50.1) L 05/17/18 04:00 RDW 15.2 % (11.5-14.5) H 05/17/18 04:00 Plt Count 574 K/mcL (140-400) H 05/17/18 04:00 Immature Gran % 7.7 % (0-4) H 05/17/18 04:00 Metamyelocytes % 2.0 % (0) H 05/15/18 04:00 Myelocytes % 6.0 % (0) H 05/02/18 04:04 Neutrophils # 13.0 K/mcL (1.6-8.9) H 05/17/18 04:00 Monocytes # 1.5 K/mcL (0.0-1.3) H 05/17/18 04:00 Reactive Lymphocytes Present (Not Present) A 05/17/18 04:00 Platelet Estimate Increased (Normal) H 05/17/18 04:00 PT 16.0 Seconds (9.4-12.1) H 05/17/18 04:00 ABG pH 7.52 pH Units (7.32-7.45) H 05/17/18 09:58 ABG pO2 62 mmHg (85-104) L 05/17/18 09:58 ABG HCO3 32 mEq/L (21-27) H 05/17/18 09:58 ABG Total CO2 33 mEq/L (20-26) H 05/17/18 09:58 ABG O2 Saturation 94 % (95-98) L 05/17/18 09:58 ABG Base Excess 8 mEq/L (-2 to 3) H 05/17/18 09:58 Sodium 133 mEq/L (136-145) L 05/17/18 04:00 Chloride 95 mEq/L (98-107) L 05/17/18 04:00 Creatinine 0.33 mg/dL (0.70-1.30) L 05/17/18 04:00 BUN/Creatinine Ratio 67 (6-26) H 05/17/18 04:00 Glucose 126 mg/dL (70-105) H 05/17/18 04:00 POC Glucose 124 mg/dL (70-99) H 05/17/18 11:11 Calcium 8.3 mg/dL (8.6-10.3) L 05/17/18 04:00 Direct Bilirubin 0.3 mg/dL (0.0-0.2) H 04/26/18 13:34 AST 11 Units/L (13-39) L 05/17/18 04:00 Alkaline Phosphatase 275 Units/L (34-104) H 05/17/18 04:00 Troponin I 0.04 ng/mL (< 0.04) H* 05/14/18 20:47 B-Natriuretic Peptide 747 pg/mL (Less than 100) H 05/09/18 03:25 Prealbumin 6.5 mg/dL (17.0-34.0) L 05/09/18 10:40 Lipase 8 Units/L (11-82) L 04/26/18 13:34 Urine Color Red (Yellow) A 05/15/18 22:48 Urine Clarity Turbid (Clear) A 05/15/18 22:48 Urine Protein 100 mg/dL (Neg-Trace) H 05/15/18 22:48 Urine Ketones Trace mg/dL (Negative) H 05/15/18 22:48 Urine Blood Large (Negative) H 05/15/18 22:48 Urine Bilirubin Moderate (Negative) H 05/15/18 22:48 Ur Leukocyte Esterase Small (Negative) H 05/15/18 22:48 Urine Microscopic RBC TNTC per hpf (0-3) H 05/15/18 22:48 Urine Microscopic WBC 30-50 per hpf (0-3) H 05/15/18 22:48 Ur Squamous Epith Cells Many per lpf (None-Few) H 05/15/18 22:48 Granular Casts Few per lpf (None Seen) H 04/26/18 21:30 Urine Mucus Many (Few) H 04/26/18 21:30 Urine Yeast Many per hpf (None Seen) H 04/26/18 21:30 Ur Culture Indicated? NO. (NO) A 05/15/18 22:48 Mycoplasma pneumon IgG 0.11 U/L (<=0.09) H 04/26/18 19:02 - Clinical Findings Intake & Output: Intake & Output 05/16/18 05/17/18 05/17/18 23:59 07:59 15:59 Intake Total 100 / 100 100 / 100 410 / 410 Output Total 1350 / 1350 300 / 300 1750 / 1750 Balance -1250 / -1250 -200 / -200 -1340 / -1340 Weight 79.3 kg 80.2 kg Consult Discharge Plan - Plan Referrals: Breanna Ocampo, FARM EQUIPMENT ENGINEER [Advanced Practice Nurse] - <Tay Farley - Last Filed: 05/17/18 17:59> Date of Encounter: 05/17/18 All Systems: The remainder of the systems were reviewed and are negative Physical Examination Vital Signs: Vital Signs, Last 4 Hours Pulse Resp BP Pulse Ox 05/17/18 17:00 92 05/17/18 16:00 109 24 143/68 95 05/17/18 15:00 100 Results - Laboratory Findings CBC and BMP: 05/17/18 04:00 05/17/18 04:00 ABG ABG pH 7.52 pH Units (7.32-7.45) H 05/17/18 09:58 ABG pCO2 39 mmHg (35-45) 05/17/18 09:58 ABG pO2 62 mmHg (85-104) L 05/17/18 09:58 ABG O2 Saturation 94 % (95-98) L 05/17/18 09:58 PT/INR, D-dimer PT 16.0 Seconds (9.4-12.1) H 05/17/18 04:00 Abnormal lab findings: Abnormal lab results WBC 17.5 K/mcL (4.3-11.1) H 05/17/18 04:00 RBC 2.44 M/mcL (4.19-5.50) L 05/17/18 04:00 Hgb 7.4 g/dL (12.9-16.9) L 05/17/18 04:00 Hct 22.0 % (37.5-50.1) L 05/17/18 04:00 RDW 15.2 % (11.5-14.5) H 05/17/18 04:00 Plt Count 574 K/mcL (140-400) H 05/17/18 04:00 Immature Gran % 7.7 % (0-4) H 05/17/18 04:00 Metamyelocytes % 2.0 % (0) H 05/15/18 04:00 Myelocytes % 6.0 % (0) H 05/02/18 04:04 Neutrophils # 13.0 K/mcL (1.6-8.9) H 05/17/18 04:00 Monocytes # 1.5 K/mcL (0.0-1.3) H 05/17/18 04:00 Reactive Lymphocytes Present (Not Present) A 05/17/18 04:00 Platelet Estimate Increased (Normal) H 05/17/18 04:00 PT 16.0 Seconds (9.4-12.1) H 05/17/18 04:00 ABG pH 7.52 pH Units (7.32-7.45) H 05/17/18 09:58 ABG pO2 62 mmHg (85-104) L 05/17/18 09:58 ABG HCO3 32 mEq/L (21-27) H 05/17/18 09:58 ABG Total CO2 33 mEq/L (20-26) H 05/17/18 09:58 ABG O2 Saturation 94 % (95-98) L 05/17/18 09:58 ABG Base Excess 8 mEq/L (-2 to 3) H 05/17/18 09:58 Sodium 133 mEq/L (136-145) L 05/17/18 04:00 Chloride 95 mEq/L (98-107) L 05/17/18 04:00 Creatinine 0.33 mg/dL (0.70-1.30) L 05/17/18 04:00 BUN/Creatinine Ratio 67 (6-26) H 05/17/18 04:00 Glucose 126 mg/dL (70-105) H 05/17/18 04:00 POC Glucose 124 mg/dL (70-99) H 05/17/18 11:11 Calcium 8.3 mg/dL (8.6-10.3) L 05/17/18 04:00 Direct Bilirubin 0.3 mg/dL (0.0-0.2) H 04/26/18 13:34 AST 11 Units/L (13-39) L 05/17/18 04:00 Alkaline Phosphatase 275 Units/L (34-104) H 05/17/18 04:00 Troponin I 0.04 ng/mL (< 0.04) H* 05/14/18 20:47 B-Natriuretic Peptide 747 pg/mL (Less than 100) H 05/09/18 03:25 Prealbumin 6.5 mg/dL (17.0-34.0) L 05/09/18 10:40 Lipase 8 Units/L (11-82) L 04/26/18 13:34 Urine Color Red (Yellow) A 05/15/18 22:48 Urine Clarity Turbid (Clear) A 05/15/18 22:48 Urine Protein 100 mg/dL (Neg-Trace) H 05/15/18 22:48 Urine Ketones Trace mg/dL (Negative) H 05/15/18 22:48 Urine Blood Large (Negative) H 05/15/18 22:48 Urine Bilirubin Moderate (Negative) H 05/15/18 22:48 Ur Leukocyte Esterase Small (Negative) H 05/15/18 22:48 Urine Microscopic RBC TNTC per hpf (0-3) H 05/15/18 22:48 Urine Microscopic WBC 30-50 per hpf (0-3) H 05/15/18 22:48 Ur Squamous Epith Cells Many per lpf (None-Few) H 05/15/18 22:48 Granular Casts Few per lpf (None Seen) H 04/26/18 21:30 Urine Mucus Many (Few) H 04/26/18 21:30 Urine Yeast Many per hpf (None Seen) H 04/26/18 21:30 Ur Culture Indicated? NO. (NO) A 05/15/18 22:48 Mycoplasma pneumon IgG 0.11 U/L (<=0.09) H 04/26/18 19:02 - Microbiology Findings Microbiology Findings: Microbiology, Last 48 Hours 05/17/18 11:25 Body Fluid Culture - Preliminary Pleural Fluid - Clinical Findings Intake & Output: Intake & Output 05/17/18 05/17/18 05/17/18 07:59 15:59 23:59 Intake Total 100 / 100 410 / 410 1627 / 1627 Output Total 300 / 300 1763 / 1763 Balance -200 / -200 -1353 / -1353 1627 / 1627 Weight 80.2 kg - Attending Attestation I saw and evaluated this patient and my medical decision-making was reviewed with the Resident Physician. I agree with the documented findings, disposition and treatment plan as described except to the extent set forth below. We independently had [id number] contact with the patient Patient seen and examined at bedside Labs, radiology, chart personally reviewed. Management was reviewed during multidisciplinary critical care rounds. ACCESS SERVICES LIBRARIAN: Patient is conscious oriented 3 follows commands participated in complex medical decision making Pulm: Is acceptable oxygenation and ventilation V/Q mismatch is contributed by bilateral pleural effusion due to hydrostatic pulmonary edema due to left-sided thoracentesis drained 1 L fluid more of transudate and sent for Gram stain and culture low suspicion for infection. Patient oxygenation improved after thoracentesis to continue diuresis.. Cards: Hemodynamically stable sinus rhythm with PACs FEN-GI: Diet according to nutrition Renal: Labs and output reviewed ID: Patient was on multiple antibiotics and antifungal no current evidence of infection as well as persistent leukocytosis. Antibiotics and see if Heme/Onc: Endo: Glucose Monitored Integ/MSK: Skin Care per routine ICU Nursing Protocol to prevent ulcers. Lines: All lines examined without evidence of infection : Dispo: To remain in ICU overnight. Patient's has chance of clinical deterioration CODE: Full Code
[2018-05-17] MEDS ORDERED: Acetylcysteine 10% 2 ML INHSOL IH SCH (12:00)
--- NOTE | 2018-05-17 12:14 | General Surgery Progress Note ---
Date of Encounter: 05/17/18 Time of Encounter: 11:30 - Assessment and Plan (1) Small bowel obstruction Current Visit: Yes Status: Acute POD #7 Exporter laparotomy with lysis of adhesions 45 minutes, Small bowel resection due to adhesio lysis, Right colectomy with Dr. Bess NPO NG tube to LIWS while awaiting return of bowel function TPN for nutritional support Supportive care and pain control IS every 1 hour while awake Out of bed to chair TID with assistance Daily wound care Continue FROILAN drain to bulb suction IV antibiotics- Flagyl and Diflucan per surgery team Surgery will continue to follow for mangement of NG, diet, wound care (2) Incarcerated incisional hernia Current Visit: Yes Status: Acute POD #19 from an open incisional hernia repair with mesh with Dr. Bess. Supportive care and pain control Daily wound care IS every 1 hour while awake Out of bed to chair TID with assistance Surgery will continue to follow (3) Ileus, postoperative Current Visit: Yes Status: Acute NPO NG tube to LIWS while awaiting return of bowel function Reglan IV every hours TPN for nutritional support (4) Bilateral pleural effusion Current Visit: Yes Status: Acute Patient transferred to 2N/ICU for closer monitoring S/P drainage of left pleural effusion per pulmonary/critical care team Continue to monitor and provide supportive care IS every 1 hour while awake Pulmonary toilet (5) COPD (chronic obstructive pulmonary disease) Current Visit: Yes Status: Chronic Management per pulmonary team IS every 1 hour while awake Pulmonary toilet Qualifiers: COPD type: chronic bronchitis Chronic bronchitis type: unspecified Qualified Code(s): J42 - Unspecified chronic bronchitis (6) Pneumonia Current Visit: Yes Status: Acute Patient has been treated with Rocephin per the medicine team May de-escalate when appropriate- management per pulmonary/critical care team Qualifiers: Pneumonia type: due to unspecified organism Laterality: right Lung location: lower lobe of lung Qualified Code(s): J18.1 - Lobar pneumonia, unspecified organism (7) Gross hematuria Current Visit: Yes Status: Acute Improved Urology following Acosta catheter to SD (8) Lung nodule seen on imaging study Current Visit: Yes Status: Chronic Patient with need further imaging as outpatient- PET scan Outpatient appointment with oncology- Dr. Richard for further work-up (9) DVT prophylaxis Current Visit: Yes Status: Acute Hold heparin due to hematuria EPCDs to bilateral lower extremties for DVT prophylaxis Out of bed to chair TID with assistance Subjective Patient reports: still having pain (unchanged- post-operative), no flatus, no bowel movement, afebrile, other (Patient transferred to ICU this morning due to increasing shortness of breath. S/P left thoracentesis with 1000ml of serous drainage removed. ) Objective Vital Signs - Last 8 Hours Temp Pulse Resp BP Pulse Ox 05/17/18 11:09 16 94 05/17/18 11:00 98.5 F 116 24 120/71 98 05/17/18 08:45 94 05/17/18 07:54 19 94 05/17/18 06:59 97.2 F L 102 19 132/76 95 05/17/18 04:33 98.9 F 116 19 153/83 93 Intake and Output 05/16/18 05/17/18 05/17/18 23:59 07:59 15:59 Intake Total 100 / 100 100 / 100 410 / 410 Output Total 1350 / 1350 300 / 300 1750 / 1750 Balance -1250 / -1250 -200 / -200 -1340 / -1340 Intake: IV Fluids 100 / 100 100 / 100 410 / 410 Rocephin 1,000 MG In Water for inj. (sterile) 10 ML @ 600 mls/ hr IVP DAILY [facility] Rx#:[id number] Intralipid 20% 250 ML @ 21 mls/ 250 / 250 hr IVPB DAILY@1700 [facility] Rx#: [id number] Diflucan 100 MG/50 ML 100 mg In 50 / 50 50 ml @ 50 mls/hr IVPB DAILY [facility] Rx#:[id number] Flagyl Premix 500 MG/100 ML 500 100 / 100 100 / 100 100 / 100 mg In 100 ml @ 100 mls/hr IVPB Q8HR [facility] Rx#:[id number] Oral 0 / 0 0 / 0 0 / 0 Output: Urine 1350 / 1350 0 / 0 550 / 550 Catheter 1200 / 1200 Gastric Drainage 300 / 300 Other: Intake, CBI Fluid 3,000 3,000 Meal NPO Percent of Meal Consumed 0% Output, CBI Fluid 3,000 3,550 Weight 79.3 kg 80.2 kg Blood Glucose* 172 152 132 Patient Weight 05/17/18 23:59 Weight 80.2 kg - General physical appearance well developed, moderate distress, moderate pain - Eyes normal ocular movement - ENT dry mucosa, atraumatic, normocephalic - Neck Neck exam: trachea midline - Respiratory other (Tachypnea and diminished bibasilar breath sounds A&P) rales: bilateral - Cardiovascular Cardiovascular exam: Present: tachycardia - Abdomen Abdomen: Present: soft, tender (expected post-operative tenderness), wound (NG tube to LIWS with 300ml of bilious drainage noted since midnight; FROILAN drain to bulb suction with 20ml of serous drainage noted since midnight) - Incision Incision: Present: open (Midline with 2 open areas noted- no surrounding erythema or induration, draining small amount of serousang. drainage without odor.) - Genitourinary other (Acosta catheter to SD with mild hematuria noted (improving)) - Neurologic CN 2-12 grossly intact - Musculoskeletal other (physical deconditioning noted) - Psychiatric oriented to time, oriented to person, oriented to place, speech is normal, memory intact - Labs 05/17/18 04:00 05/17/18 04:00 Diabetes panel 05/17/18 Range/Units 04:00 Sodium 133 L (136-145) mEq/L Potassium 3.5 (3.5-5.1) mEq/L Chloride 95 L (98-107) mEq/L Carbon Dioxide 29 (23-29) mEq/L BUN 22 (8-23) mg/dL Creatinine 0.33 L (0.70-1.30) mg/dL Glucose 126 H (70-105) mg/dL Calcium 8.3 L (8.6-10.3) mg/dL AST 11 L (13-39) Units/L ALT 8 (7-52) Units/L Alkaline Phosphatase 275 H (34-104) Units/L Albumin 3.7 (3.5-5.7) g/dL Calcium panel 05/17/18 Range/Units 04:00 Calcium 8.3 L (8.6-10.3) mg/dL Phosphorus 3.5 (2.7-4.5) mg/dL Albumin 3.7 (3.5-5.7) g/dL Pituitary panel 05/17/18 Range/Units 04:00 Sodium 133 L (136-145) mEq/L Potassium 3.5 (3.5-5.1) mEq/L Chloride 95 L (98-107) mEq/L Carbon Dioxide 29 (23-29) mEq/L BUN 22 (8-23) mg/dL Creatinine 0.33 L (0.70-1.30) mg/dL Glucose 126 H (70-105) mg/dL Calcium 8.3 L (8.6-10.3) mg/dL Adrenal panel 05/17/18 Range/Units 04:00 Sodium 133 L (136-145) mEq/L Potassium 3.5 (3.5-5.1) mEq/L Chloride 95 L (98-107) mEq/L Carbon Dioxide 29 (23-29) mEq/L BUN 22 (8-23) mg/dL Creatinine 0.33 L (0.70-1.30) mg/dL Glucose 126 H (70-105) mg/dL Calcium 8.3 L (8.6-10.3) mg/dL Total Bilirubin 0.4 (0.3-1.0) mg/dL AST 11 L (13-39) Units/L ALT 8 (7-52) Units/L Alkaline Phosphatase 275 H (34-104) Units/L Albumin 3.7 (3.5-5.7) g/dL - VTE Documentation of Mechanical Device: Intermittent pneumatic compression device Consult Discharge Plan - Plan Referrals: Breanna Ocampo COMPENSATION VICE PRESIDENT [Advanced Practice Nurse] - - Attending Attestation For this encounter, I have reviewed the CLIENT SOLUTIONS SPECIALIST or PA documentation, treatment plan, and medical decision making; and I have had face to face time with this patient.
[2018-05-17 12:26] LABS: RBC,Pleural Fluid < 0.002 M/mcL
[2018-05-17 12:51] LABS: LDH,Pleural Fluid 63 Units/L (No Ref Range); Total Protein,Pleural Fluid < 3.0 g/dL (No Ref Range)
[2018-05-17 13:09] LABS: Amylase,Pleural Fluid < 10 Units/L (No Ref Range); Glucose,Pleural Fluid 146 mg/dL (No Ref Range)
[2018-05-17 13:50] LABS: Appearance of Pleural Fl Clear (Clear)
--- NOTE | 2018-05-17 13:58 | Event Note ---
Date of Encounter: 05/17/18 Time of Encounter: 13:10 In to see patient and irrigate catheter. On examination, catheter bag is full and sufficiently draining clear urine. Urine in bag has slight pink tinge. Urine in tubing is transparent and light yellow. Patient was given Lasix 40mg x 2. CBI discontinued for now. Will reevaluate and irrigate catheter if needed later today.
[2018-05-17] MEDS ORDERED: Clinimix E 5%-20% SOLUTION 2,000 ML with MVI, adult with vitamin K 10 ML, Trace Eleme... IVC SCH (17:00)
[2018-05-18] MEDS: Ipratropium/Albuterol Neb 3 ML IH SCH ×6 (03:45→23:10)
[2018-05-18 04:58] LABS: Basophils # 0.1 K/mcL (0.0-0.2); Basophils % 0.4 %; Eosinophils # 0.5 K/mcL (0.0-0.6); Eosinophils % 3.3 %; Hematocrit 21.4 % (37.5-50.1); Hemoglobin 7.2 g/dL (12.9-16.9); Immature Granulocytes % 7.1 % (0-4); Lymphocytes # 1.2 K/mcL (0.6-4.6); Lymphocytes % 8.1 %; Mean Corpuscular HGB Conc 33.6 g/dL (31.6-35.5); Mean Corpuscular Hemoglobin 29.5 pg (28.0-33.3); Mean Corpuscular Volume 87.7 fL (83.0-100.0); Monocytes # 1.1 K/mcL (0.0-1.3); Monocytes % 7.3 %; Neutrophils # 11.2 K/mcL (1.6-8.9); Platelet Count 583 K/mcL (140-400); Red Blood Count 2.44 M/mcL (4.19-5.50); Red Cell Distribution Width 15.3 % (11.5-14.5); Segmented Neutrophils % 73.8 %
[2018-05-18 05:17] LABS: BUN/Creatinine Ratio 73 (6-26); Blood Urea Nitrogen 22 mg/dL (8-23); Calcium 7.9 mg/dL (8.6-10.3); Carbon Dioxide 30 mEq/L (23-29); Chloride 98 mEq/L (98-107); Glucose 148 mg/dL (70-105); Magnesium 1.8 mg/dL (1.6-2.6); Osmolality,Calculated 276 (280-300); Phosphorous 3.3 mg/dL (2.7-4.5); Sodium 130 mEq/L (136-145); eGFR For Non-African Americans > 60 (> 60)
[2018-05-18 05:19] LABS: Hypersegmented Neutrophils Present (Not Present); Platelet Estimate Increased (Normal); Toxic Granulation Present (Not Present)
[2018-05-18] MEDS: *HR* Metoprolol 5 MG/5 ML VIAL IVP SCH ×3 (05:49→17:03)
[2018-05-18] MEDS: Pantoprazole 40 MG VIAL IVP SCH (05:49)
[2018-05-18] MEDS: Metoclopramide 10 MG/2 ML VIAL IVP SCH ×3 (05:49→17:03)
--- NOTE | 2018-05-18 08:14 | Urology Progress Note ---
Date of Encounter: 05/18/18 Time of Encounter: 07:30 - Assessment and Plan (1) Gross hematuria Current Visit: Yes Status: Acute Assessment and plan: Patient is a 67 year old male with a history of gross hematuria. Urine appears opaque fruit punch in bedside bag and transparent orange-pink tinge with sediment in tubing. I performed 1000cc sterile water hand irrigation through 3 way catheter. No clots were evacuated. Urine improved to transparent pink lemonade post irrigation. Will continue CBI and conservative therapy. Progress Note Subjective: no new complaints, feels better, afebrile Narrative: Patient seen and examined sitting upright in bed in no apparent distress. Respiratory effort is improved. Patient denies any new complaints or increased pain/feeling of obstruction with indwelling urinary catheter. Objective Initial Vital Signs Temp Pulse Resp BP Pulse Ox 97.6 F 100 16 83/48 97 04/26/18 13:10 04/26/18 13:10 04/26/18 13:10 04/26/18 13:10 04/26/18 13:10 - General physical appearance Present: no distress, no pain, chronically ill - Respiratory Present: normal expansion, normal respiratory effort - Abdomen Present: soft, non tender - Genitourinary Present: normal penis with no external lesions, testicles present Urine Appearance: Present: Sediment, Hematuria - Integumentary Present: no rash, no abnormal pigmentation - Musculoskeletal Present: normal posture - Psychiatric Present: oriented to time, oriented to person, oriented to place, speech is normal - Labs 05/18/18 04:35 05/18/18 04:35 Diabetes panel 05/17/18 05/18/18 Range/Units 04:00 04:35 Sodium 133 L 130 L (136-145) mEq/L Potassium 3.5 3.0 L (3.5-5.1) mEq/L Chloride 95 L 98 (98-107) mEq/L Carbon Dioxide 29 30 H (23-29) mEq/L BUN 22 22 (8-23) mg/dL Creatinine 0.33 L 0.30 L (0.70-1.30) mg/dL Glucose 126 H 148 H (70-105) mg/dL Calcium 8.3 L 7.9 L (8.6-10.3) mg/dL AST 11 L (13-39) Units/L ALT 8 (7-52) Units/L Alkaline Phosphatase 275 H (34-104) Units/L Albumin 3.7 (3.5-5.7) g/dL Calcium panel 05/17/18 05/18/18 Range/Units 04:00 04:35 Calcium 8.3 L 7.9 L (8.6-10.3) mg/dL Phosphorus 3.5 3.3 (2.7-4.5) mg/dL Albumin 3.7 (3.5-5.7) g/dL Pituitary panel 05/17/18 05/18/18 Range/Units 04:00 04:35 Sodium 133 L 130 L (136-145) mEq/L Potassium 3.5 3.0 L (3.5-5.1) mEq/L Chloride 95 L 98 (98-107) mEq/L Carbon Dioxide 29 30 H (23-29) mEq/L BUN 22 22 (8-23) mg/dL Creatinine 0.33 L 0.30 L (0.70-1.30) mg/dL Glucose 126 H 148 H (70-105) mg/dL Calcium 8.3 L 7.9 L (8.6-10.3) mg/dL Adrenal panel 05/17/18 05/18/18 Range/Units 04:00 04:35 Sodium 133 L 130 L (136-145) mEq/L Potassium 3.5 3.0 L (3.5-5.1) mEq/L Chloride 95 L 98 (98-107) mEq/L Carbon Dioxide 29 30 H (23-29) mEq/L BUN 22 22 (8-23) mg/dL Creatinine 0.33 L 0.30 L (0.70-1.30) mg/dL Glucose 126 H 148 H (70-105) mg/dL Calcium 8.3 L 7.9 L (8.6-10.3) mg/dL Total Bilirubin 0.4 (0.3-1.0) mg/dL AST 11 L (13-39) Units/L ALT 8 (7-52) Units/L Alkaline Phosphatase 275 H (34-104) Units/L Albumin 3.7 (3.5-5.7) g/dL - VTE Documentation of Mechanical Device: Intermittent pneumatic compression device Consult Discharge Plan - Plan Referrals: Breanna Ocampo, MATERIAL PREPARATION WORKER [Advanced Practice Nurse] -
[2018-05-18] MEDS: Furosemide 40 MG/4 ML VIAL IVP SCH ×3 (08:28→17:03)
[2018-05-18] MEDS: OXYCODONE Oral CONC 10 MG/0.5 ML ORAL.SYG SL PRN (08:29)
--- NOTE | 2018-05-18 09:26 | Pulmonology Progress Note ---
<Rashmi Polanco - Last Filed: 05/18/18 11:32> Date of Encounter: 05/18/18 Time of Encounter: 10:37 Assessment and Plan (1) Acute respiratory failure with hypoxia Current Visit: Yes Status: Acute Likely secondary to pneumonia with worsening effusions. CXR 05/18 - Worsening bibasilar atelectasis and/or pneumonia and enlarging right pleural effusion. Persistant pulmonary edema, no cardiomegaly. s/p left lung Thoracentesis - 800ml transudative fluid removed Completed a 21 day course of Flagyl, 6 day course of rocephin Currently 95% on 2L NC Continue supplemental O2 PRN Continue Lasix 40 TID as tolerated Antibiotics discontinued yesterday due to WBC downtrending (15.2 today from 23.5 on adm), patient is afebrile, decreased sputum production and cough (2) Pneumonia Current Visit: Yes Status: Acute Likely secondary to COPD, extended hospital stay, lack of compliance with insentive spirometry s/p multiple surgeries. CXR 05/18 - Worsening bibasilar atelectasis and/or pneumonia and enlarging right pleural effusion. Persistant pulmonary edema, no cardiomegaly. WBC 23.5 on adm --> 15.2 today Patient is afebrile, decreased cough, 94% on 1L NC Completed 6 day course of rocephin. Less concern for infectious process at this time. Leukocytosis is downtrending and patient had significant improvement with diuresis and thoracentesis. Qualifiers: Pneumonia type: due to unspecified organism Laterality: right Lung location: lower lobe of lung Qualified Code(s): J18.1 - Lobar pneumonia, unspecified organism (3) Pleural effusion Current Visit: Yes Status: Acute Likely secondary to pneumonia and COPD. Must also consider malignancy with smoking history and incidental finding of an 11mm spiculated lung nodule. CXR 05/18 - Worsening bibasilar atelectasis and/or pneumonia and enlarging right pleural effusion. Persistant pulmonary edema, no cardiomegaly. S/p thoracentesis 05/17 - 800 ml of transudative plueral fluid was removed. Serum LDH 194, pleural fluid LDH 63. Serum protein 6.7, pleural fluid protein <3. Patient admits to improvement in his breathing with less frequent coughing. Continue Lasix 40 TID as tolerated Encourage insentive spirometry Continue duonebs (4) Hypokalemia Current Visit: Yes Status: Acute Likely due to diuretics. K+ of 3.0 today. Ordered IV potassium chloride 20 meq to supplement Will continue to monitor. (5) Lung nodule Current Visit: Yes Status: Acute Potentially due to infection, inflammation or scarring, or malignancy. Patient had a 50 year history of smoking. Chest CT - persistent 11mm spiculated nodule lateral aspect right lung apex, suspicious for malignancy Several mildly prominent mediastinal lymph nodes. Per Fleischner criteria, a single nodule >8mm should consider CT at 3 months, PET/CT, or tissue sampling. Due to patients smoking history, he is high risk and should follow-up outpatient for repeat CT or biopsy in 3 months. (6) COPD (chronic obstructive pulmonary disease) Current Visit: Yes Status: Chronic Chronic, stable. Continue duonebs q4hr Qualifiers: COPD type: chronic bronchitis Chronic bronchitis type: unspecified Qualified Code(s): J42 - Unspecified chronic bronchitis (7) DVT prophylaxis Current Visit: Yes Status: Acute ePCDs Subjective Principal diagnosis: Acute Respiratory distress Interval history: Patient's breathing has improved significantly s/p diuresis and throacentesis yesterday. He was on 6L supplemental O2 yesterday, and is not down to 1L and saturating well. He is coughing less today and has tolerated his breathing treatments well. Objective PUL Vital signs: Last Vital Signs Temp 97.9 F 05/18/18 08:00 Pulse 96 05/18/18 08:00 Resp 16 05/18/18 08:00 BP 125/65 05/18/18 08:00 Pulse Ox 94 05/18/18 08:00 General appearance: no acute distress, alert Eyes: nonicteric Effort: mildly labored Auscultation: bilateral: diminished breath sounds Cardiovascular: regular rate and rhythm Gastrointestinal: hypoactive bowel sounds, tender, other (abdomen is distended, but soft) Extremities: no cyanosis, no edema, other (SCDs in on bilateral LEs) pupils equal and round mood appropriate Results - Laboratory Findings CBC and BMP: 05/18/18 04:35 05/18/18 04:35 ABG ABG pH 7.52 pH Units (7.32-7.45) H 05/17/18 09:58 ABG pCO2 39 mmHg (35-45) 05/17/18 09:58 ABG pO2 62 mmHg (85-104) L 05/17/18 09:58 ABG O2 Saturation 94 % (95-98) L 05/17/18 09:58 PT/INR, D-dimer PT 16.0 Seconds (9.4-12.1) H 05/17/18 04:00 Abnormal lab findings: Abnormal lab results WBC 15.2 K/mcL (4.3-11.1) H 05/18/18 04:35 RBC 2.44 M/mcL (4.19-5.50) L 05/18/18 04:35 Hgb 7.2 g/dL (12.9-16.9) L 05/18/18 04:35 Hct 21.4 % (37.5-50.1) L 05/18/18 04:35 RDW 15.3 % (11.5-14.5) H 05/18/18 04:35 Plt Count 583 K/mcL (140-400) H 05/18/18 04:35 Immature Gran % 7.1 % (0-4) H 05/18/18 04:35 Metamyelocytes % 2.0 % (0) H 05/15/18 04:00 Myelocytes % 6.0 % (0) H 05/02/18 04:04 Neutrophils # 11.2 K/mcL (1.6-8.9) H 05/18/18 04:35 Hypersegmented Neuts Present (Not Present) A 05/18/18 04:35 Reactive Lymphocytes Present (Not Present) A 05/17/18 04:00 Toxic Granulation Present (Not Present) A 05/18/18 04:35 Platelet Estimate Increased (Normal) H 05/18/18 04:35 PT 16.0 Seconds (9.4-12.1) H 05/17/18 04:00 ABG pH 7.52 pH Units (7.32-7.45) H 05/17/18 09:58 ABG pO2 62 mmHg (85-104) L 05/17/18 09:58 ABG HCO3 32 mEq/L (21-27) H 05/17/18 09:58 ABG Total CO2 33 mEq/L (20-26) H 05/17/18 09:58 ABG O2 Saturation 94 % (95-98) L 05/17/18 09:58 ABG Base Excess 8 mEq/L (-2 to 3) H 05/17/18 09:58 Sodium 130 mEq/L (136-145) L 05/18/18 04:35 Potassium 3.0 mEq/L (3.5-5.1) L 05/18/18 04:35 Carbon Dioxide 30 mEq/L (23-29) H 05/18/18 04:35 Creatinine 0.30 mg/dL (0.70-1.30) L 05/18/18 04:35 BUN/Creatinine Ratio 73 (6-26) H 05/18/18 04:35 Glucose 148 mg/dL (70-105) H 05/18/18 04:35 POC Glucose 157 mg/dL (70-99) H 05/18/18 08:51 Calculated Osmolality 276 (280-300) L 05/18/18 04:35 Calcium 7.9 mg/dL (8.6-10.3) L 05/18/18 04:35 Direct Bilirubin 0.3 mg/dL (0.0-0.2) H 04/26/18 13:34 AST 11 Units/L (13-39) L 05/17/18 04:00 Alkaline Phosphatase 275 Units/L (34-104) H 05/17/18 04:00 Troponin I 0.04 ng/mL (< 0.04) H* 05/14/18 20:47 B-Natriuretic Peptide 747 pg/mL (Less than 100) H 05/09/18 03:25 Prealbumin 6.5 mg/dL (17.0-34.0) L 05/09/18 10:40 Lipase 8 Units/L (11-82) L 04/26/18 13:34 Urine Color Red (Yellow) A 05/15/18 22:48 Urine Clarity Turbid (Clear) A 05/15/18 22:48 Urine Protein 100 mg/dL (Neg-Trace) H 05/15/18 22:48 Urine Ketones Trace mg/dL (Negative) H 05/15/18 22:48 Urine Blood Large (Negative) H 05/15/18 22:48 Urine Bilirubin Moderate (Negative) H 05/15/18 22:48 Ur Leukocyte Esterase Small (Negative) H 05/15/18 22:48 Urine Microscopic RBC TNTC per hpf (0-3) H 05/15/18 22:48 Urine Microscopic WBC 30-50 per hpf (0-3) H 05/15/18 22:48 Ur Squamous Epith Cells Many per lpf (None-Few) H 05/15/18 22:48 Granular Casts Few per lpf (None Seen) H 04/26/18 21:30 Urine Mucus Many (Few) H 04/26/18 21:30 Urine Yeast Many per hpf (None Seen) H 04/26/18 21:30 Ur Culture Indicated? NO. (NO) A 05/15/18 22:48 Mycoplasma pneumon IgG 0.11 U/L (<=0.09) H 04/26/18 19:02 - Microbiology Findings Microbiology Findings: Microbiology, Last 48 Hours 05/17/18 11:25 Body Fluid Culture - Preliminary Pleural Fluid - Clinical Findings Intake & Output: Intake & Output 05/17/18 05/18/18 05/18/18 23:59 07:59 15:59 Intake Total 1627 / 1627 250 / 250 Output Total 1490 / 1490 1410 / 1410 385 / 385 Balance 137 / 137 -1160 / -1160 -385 / -385 Weight 73.9 kg - VTE Documentation of Mechanical Device: Intermittent pneumatic compression device Consult Discharge Plan - Plan Referrals: Breanna Ocampo COMMUNICATION INSTRUCTOR [Advanced Practice Nurse] - <Tay Farley - Last Filed: 05/18/18 14:42> Date of Encounter: 05/18/18 Objective PUL Vital signs: Last Vital Signs Temp 97.9 F 05/18/18 08:00 Pulse 82 05/18/18 12:00 Resp 16 05/18/18 12:00 BP 127/64 05/18/18 12:00 Pulse Ox 96 05/18/18 12:00 Results - Laboratory Findings CBC and BMP: 05/18/18 04:35 05/18/18 04:35 ABG ABG pH 7.52 pH Units (7.32-7.45) H 05/17/18 09:58 ABG pCO2 39 mmHg (35-45) 05/17/18 09:58 ABG pO2 62 mmHg (85-104) L 05/17/18 09:58 ABG O2 Saturation 94 % (95-98) L 05/17/18 09:58 PT/INR, D-dimer PT 16.0 Seconds (9.4-12.1) H 05/17/18 04:00 Abnormal lab findings: Abnormal lab results WBC 15.2 K/mcL (4.3-11.1) H 05/18/18 04:35 RBC 2.44 M/mcL (4.19-5.50) L 05/18/18 04:35 Hgb 7.2 g/dL (12.9-16.9) L 05/18/18 04:35 Hct 21.4 % (37.5-50.1) L 05/18/18 04:35 RDW 15.3 % (11.5-14.5) H 05/18/18 04:35 Plt Count 583 K/mcL (140-400) H 05/18/18 04:35 Immature Gran % 7.1 % (0-4) H 05/18/18 04:35 Metamyelocytes % 2.0 % (0) H 05/15/18 04:00 Myelocytes % 6.0 % (0) H 05/02/18 04:04 Neutrophils # 11.2 K/mcL (1.6-8.9) H 05/18/18 04:35 Hypersegmented Neuts Present (Not Present) A 05/18/18 04:35 Reactive Lymphocytes Present (Not Present) A 05/17/18 04:00 Toxic Granulation Present (Not Present) A 05/18/18 04:35 Platelet Estimate Increased (Normal) H 05/18/18 04:35 PT 16.0 Seconds (9.4-12.1) H 05/17/18 04:00 ABG pH 7.52 pH Units (7.32-7.45) H 05/17/18 09:58 ABG pO2 62 mmHg (85-104) L 05/17/18 09:58 ABG HCO3 32 mEq/L (21-27) H 05/17/18 09:58 ABG Total CO2 33 mEq/L (20-26) H 05/17/18 09:58 ABG O2 Saturation 94 % (95-98) L 05/17/18 09:58 ABG Base Excess 8 mEq/L (-2 to 3) H 05/17/18 09:58 Sodium 130 mEq/L (136-145) L 05/18/18 04:35 Potassium 3.0 mEq/L (3.5-5.1) L 05/18/18 04:35 Carbon Dioxide 30 mEq/L (23-29) H 05/18/18 04:35 Creatinine 0.30 mg/dL (0.70-1.30) L 05/18/18 04:35 BUN/Creatinine Ratio 73 (6-26) H 05/18/18 04:35 Glucose 148 mg/dL (70-105) H 05/18/18 04:35 POC Glucose 132 mg/dL (70-99) H 05/18/18 11:31 Calculated Osmolality 276 (280-300) L 05/18/18 04:35 Calcium 7.9 mg/dL (8.6-10.3) L 05/18/18 04:35 Direct Bilirubin 0.3 mg/dL (0.0-0.2) H 04/26/18 13:34 AST 11 Units/L (13-39) L 05/17/18 04:00 Alkaline Phosphatase 275 Units/L (34-104) H 05/17/18 04:00 Troponin I 0.04 ng/mL (< 0.04) H* 05/14/18 20:47 B-Natriuretic Peptide 747 pg/mL (Less than 100) H 05/09/18 03:25 Prealbumin 6.5 mg/dL (17.0-34.0) L 05/09/18 10:40 Lipase 8 Units/L (11-82) L 04/26/18 13:34 Urine Color Red (Yellow) A 05/15/18 22:48 Urine Clarity Turbid (Clear) A 05/15/18 22:48 Urine Protein 100 mg/dL (Neg-Trace) H 05/15/18 22:48 Urine Ketones Trace mg/dL (Negative) H 05/15/18 22:48 Urine Blood Large (Negative) H 05/15/18 22:48 Urine Bilirubin Moderate (Negative) H 05/15/18 22:48 Ur Leukocyte Esterase Small (Negative) H 05/15/18 22:48 Urine Microscopic RBC TNTC per hpf (0-3) H 05/15/18 22:48 Urine Microscopic WBC 30-50 per hpf (0-3) H 05/15/18 22:48 Ur Squamous Epith Cells Many per lpf (None-Few) H 05/15/18 22:48 Granular Casts Few per lpf (None Seen) H 04/26/18 21:30 Urine Mucus Many (Few) H 04/26/18 21:30 Urine Yeast Many per hpf (None Seen) H 04/26/18 21:30 Ur Culture Indicated? NO. (NO) A 05/15/18 22:48 Mycoplasma pneumon IgG 0.11 U/L (<=0.09) H 04/26/18 19:02 - Microbiology Findings Microbiology Findings: Microbiology, Last 48 Hours 05/17/18 11:25 Body Fluid Culture - Preliminary Pleural Fluid - Clinical Findings Intake & Output: Intake & Output 05/17/18 05/18/18 05/18/18 23:59 07:59 15:59 Intake Total 1627 / 1627 250 / 250 200 / 200 Output Total 1490 / 1490 1410 / 1410 1110 / 1110 Balance 137 / 137 -1160 / -1160 -910 / -910 Weight 73.9 kg - Attending Attestation - Attending Attestation I saw and evaluated this patient and my medical decision-making was reviewed with the Resident Physician. I agree with the documented findings, disposition and treatment plan as described except to the extent set forth below. We independently had [id number] contact with the patient Patient seen and examined at bedside Labs, radiology, chart personally reviewed. Management was reviewed during multidisciplinary critical care rounds. ACUTE CARE PHYSICIAN: Patient is conscious oriented 3 follows commands participated in complex medical decision making Pulm: Is acceptable oxygenation and ventilation V/Q mismatch is contributed by bilateral pleural effusion due to hydrostatic pulmonary edema due to left-sided thoracentesis drained 1 L fluid more of transudate and sent for Gram stain and culture low suspicion for infection. Patient oxygenation improved after thoracentesis to continue diuresis.. 05/18 Patient V/Q mismatch is lot better after thoracentesis , pleural fluid is transduate secondary to diastolic heart failure. Cards: Hemodynamically stable sinus rhythm with PACs. She was acute on chronic diastolic heart failure to continue diuresis as tolerated FEN-GI: Diet according to nutrition. Patient is on TPN as patient still has paralytic ileus general surgery is following going to get a CT abdomen and pelvis today. Renal: Labs and output reviewed ID: Patient was on multiple antibiotics and antifungal no current evidence of infection as well as persistent leukocytosis. Old off all antimicrobials. Heme/Onc: Continue thromboprophylaxis Endo: Glucose Monitored Integ/MSK: Skin Care per routine ICU Nursing Protocol to prevent ulcers. Lines: All lines examined without evidence of infection : Dispo: To remain in ICU overnight. Patient's has chance of clinical deterioration CODE: Full Code
--- NOTE | 2018-05-18 11:11 | General Surgery Progress Note ---
Date of Encounter: 05/18/18 Time of Encounter: 07:30 - Assessment and Plan (1) Small bowel obstruction due to adhesions Current Visit: Yes Status: Acute Date of procedure: 05/10/18 Pre-op diagnosis: Small bowel obstruction Post-op diagnosis: same Procedure: Exporter laparotomy with lysis of adhesions 45 minutes Small bowel resection due to adhesion lysis Right colectomy Anesthesia: GETA Surgeon: Vignesh Bess POD #8 as above. Awaiting return of bowel function. Abdomen is slightly more distended and there is notable new finding of high-pitched tinkling bowel sounds. No flatus or BM. Packing in midline noted. WBC is slowly downtrending; diflucan added 05/15/2018 , further ATBX per primary team for PNA No evidence of abdominal bleeding or acute abscess NG in place and functioning. 200 ml bilious output noted in canister. RN reports 150-200 ml per day output. Noted aspiration of thin and nectar thick liquids for NG placement on 05/16/2018. He will likely need a swallow eval prior to any PO. Acosta replaced per urology. Noted s/p left thoracentesis 05/17/2018, transudative of per pulmonary note Plan: -Continue supportive care and discomfort management while awaiting return of bowel function -NG to LIWS -NPO -continue discomfort management -Aggressive pulm toileting and further pulm management noted -continue reglan; consideration for neostigmine while in ICU (will review with attending surgeon) -Continue wound care: remove dressing and packing. Wash with antibacterial soap. Repack with 1/2 mesalt ribbon, cover with a dry dressing, tape tos ecure. -Apply abdominal binder as he is at risk for wound dehiscence (orderded 2017, and yet to be applied) -FROILAN drain care: Do not let the FROILAN dangle from the body. Please attach FROILAN to gown with safety pin. Strip lines Q8 hours at minimum. Maintain FROILAN bulb to suction. -Report any changes in FROILAN output. -Continue IV ATBX per primary team for pneumonia. No abdominal abscess is suspected. His drainage was expected incisional complication given his surgical procedures. -Serial abdominal exams -Repeat am labs -Continue TPN for severe protein malnutrition -continue PT and OT -out of bed to chair at least TID (2) Umbilical hernia Current Visit: Yes Status: Acute Date of procedure: 04/28/18 Pre-op diagnosis: Recurrent Incisional hernia Post-op diagnosis: same Procedure: Robotic Recurrent Incisional hernia repair mesh Surgeon: Dr. Bess POD#20 as above. Brief clinical summary 05/08/2018: He has had a prolonged postoperative ileus. NG was removed on 05/02/2018 after patient had small BMS (following 2 doses of methylnatrexone and continued reglan ). He continued low-grade fevers (99.6), but on 05/05/2108 he spike a fever of 101.2. CT of chest, abdomen, and pelvis were obtained which noted significant dilation of mostly small bowel loops with a transition point in the pelvis, ventral hernia with fluid and a small amount of air suggestive of inflammation ( reviewed with attending surgeon who stated there was no evidence of strangulated hernia but more consistent with postoperative seroma and no indication to aspirate the periiumbilical swelling), no evidence of abscess, bilateral pleural effusions and consolidated changes, two focal areas of wall thickening in the bladder noted. He was recommended to have his NG replaced at this time, but he he refused. Of note on 05/05/2018, the patient did admit to being untruthful about his symptoms because he did not want the NG tube replaced and Of note, he did have an increase in fever and WBC on 05/04- coinciding with a 24 hour history or IV ATBX completed per original order. These were restarted and patient's WBC has improved (no results available for 05/08/2018). He is currently on Levo/ Flagyl Throughout the weekend he has had sips of ice chips, reports a bowel movement only after enema administration, and states he "might have passed gas through the night." He reports that his abdomen feels full, distended, achy, nauseated, but without vomiting. The area of erythema at the periumbilical area remains consistent with seroma. There is no evidence of abscess. An acute abdominal series was obtained on 05/08/2018 which noted no change in dilation of small bowel loops. refused NG placement until later in the day after two more physicians recommended NG placement. 250 ml clear fluids and air returned. 05/09/2018: NG placed 05/08/18. 750 ml output per NG. No improvement in abd distention, nausea, tympany, and remains without BS. No flatus, no BM. Weight noted (16.2 lbs WG since admission), unsure of accuracy, will check standing scale weight. +5.7L fluid balance, will check albumin, BNP, and CXR. Tachycardia resolved with BBs. WBC increased 13.4>>16.2 and without bandemia. hgb stable 9.4 and no overt signs of bleeding. His abd exam is nonperitoneal. He is tender to palpation at the umbilicus. The erythema remains inside the margins drawn; suspect reaction to seroma, but no clear indication to aspirate remains. There is no drainage or cellulits noted. Rectal temp 99.6. Blood cultures 04/26 and no growth; BC 05/06 pending. Remained on Levo/Flagyl ( previously cipro/flagyl); Echo 04/27/2018 with EF 55%, mild diastolic dysfunction, BBB; Oncology recommends outpatient follow-up for suspected right lung CA. CT abd/pelvis was repeated and reviewed with Dr. Bess. Watchful waiting and NG decompression. , he continued to have increased distention and was taken to the OR ( see SBO above). Plan: See A/P above Qualifiers: Obstruction and gangrene presence: with obstruction but without gangrene Qualified Code(s): K42.0 - Umbilical hernia with obstruction, without gangrene (3) Ileus, postoperative Current Visit: Yes Status: Acute Prolonged postoperative ileus; likely exacerbated by overall clinical picture, i.e. lack of patient participation, PNA, likely metastatic ca See above for further treatment recommendations (4) COPD (chronic obstructive pulmonary disease) Current Visit: Yes Status: Chronic Per primary team Qualifiers: COPD type: chronic bronchitis Chronic bronchitis type: unspecified Qualified Code(s): J42 - Unspecified chronic bronchitis (5) Electrolyte imbalance Current Visit: Yes Status: Acute per primary team replyte lytes as indicated Continue to follow (6) Protein calorie malnutrition Current Visit: Yes Status: Acute see a/p above Qualifiers: Protein-calorie malnutrition severity: severe Qualified Code(s): E43 - Unspecified severe protein-calorie malnutrition (7) Pneumonia Current Visit: Yes Status: Acute Per primary team, now with likely aspiration See above Qualifiers: Pneumonia type: due to unspecified organism Laterality: right Lung location: lower lobe of lung Qualified Code(s): J18.1 - Lobar pneumonia, unspecified organism (8) Bilateral pleural effusion Current Visit: Yes Status: Acute Management per primary team Subjective Narrative: States he is feeling better. Denies flatus or BM. States abdomen feels a little more swollen. Objective Vital Signs - Last 8 Hours Temp Pulse Resp BP Pulse Ox 05/18/18 10:00 96 16 135/60 95 05/18/18 08:00 97.9 F 96 16 125/65 94 05/18/18 07:42 16 119/66 95 05/18/18 06:00 81 18 119/66 98 05/18/18 05:00 103 20 94 05/18/18 04:18 97.9 F 05/18/18 04:14 111 05/18/18 04:00 104 21 118/63 97 05/18/18 03:45 18 96 Intake and Output 05/17/18 05/18/18 05/18/18 23:59 07:59 15:59 Intake Total 1627 / 1627 250 / 250 100 / 100 Output Total 1490 / 1490 1410 / 1410 385 / 385 Balance 137 / 137 -1160 / -1160 -285 / -285 Intake: IV Fluids 250 / 250 100 / 100 Intralipid 20% 250 ML @ 21 mls/ 250 / 250 hr IVPB DAILY@1700 [facility] Rx#: [id number] Potassium Chloride 20 mEq/100 100 / 100 mL 20 meq In 100 ml @ 100 mls/ hr IVPB Q1H [facility] Rx#:[id number] Other 1627 / 1627 Output: Urine 470 / 470 1150 / 1150 300 / 300 Catheter 1020 / 1020 Gastric Drainage 260 / 260 80 / 80 R Nares 110 / 110 Wound Drainage 5 / 5 Left Abdomen 5 / 5 Other: Intake, CBI Fluid 3,000 1,200 0 Output, CBI Fluid 3,000 1,200 0 Weight 73.9 kg Blood Glucose* 132 115 157 Patient Weight 05/18/18 23:59 Weight 73.9 kg VITAL SIGNS: Reviewed. See [facility] GENERAL: In no apparent distress. HEENT: Normocephalic, atraumatic, oropharynx is pink and moist, NG to right nares noted.. CHEST/RESPIRATORY: The thorax is free from signs of trauma. Lung sounds: decreased and course anteriorly CARDIAC: tachy VASCULAR: 2+ peripheral pulses. ABDOMEN: soft, distended, new findings of tinkling/high-pitched bowel sounds, INCISION: Surgical intact overall. Packing in place. Moderate amount of cloudy drainage noted. There are no signs of cellulitis. WOUNDS/DRAINS: FROILAN with small amount of serous drainage. NG with 200 ml bilious output. MUSCULOSKELETAL: general deconditioning noted NEUROLOGIC EXAM: Alert and oriented x 3. Speech normal. Follows commands. PSYCHIATRIC: Mood normal. SKIN: No rash or lesions. - Labs 05/18/18 04:35 05/18/18 04:35 Diabetes panel 05/17/18 05/18/18 Range/Units 04:00 04:35 Sodium 133 L 130 L (136-145) mEq/L Potassium 3.5 3.0 L (3.5-5.1) mEq/L Chloride 95 L 98 (98-107) mEq/L Carbon Dioxide 29 30 H (23-29) mEq/L BUN 22 22 (8-23) mg/dL Creatinine 0.33 L 0.30 L (0.70-1.30) mg/dL Glucose 126 H 148 H (70-105) mg/dL Calcium 8.3 L 7.9 L (8.6-10.3) mg/dL AST 11 L (13-39) Units/L ALT 8 (7-52) Units/L Alkaline Phosphatase 275 H (34-104) Units/L Albumin 3.7 (3.5-5.7) g/dL Calcium panel 05/17/18 05/18/18 Range/Units 04:00 04:35 Calcium 8.3 L 7.9 L (8.6-10.3) mg/dL Phosphorus 3.5 3.3 (2.7-4.5) mg/dL Albumin 3.7 (3.5-5.7) g/dL Pituitary panel 05/17/18 05/18/18 Range/Units 04:00 04:35 Sodium 133 L 130 L (136-145) mEq/L Potassium 3.5 3.0 L (3.5-5.1) mEq/L Chloride 95 L 98 (98-107) mEq/L Carbon Dioxide 29 30 H (23-29) mEq/L BUN 22 22 (8-23) mg/dL Creatinine 0.33 L 0.30 L (0.70-1.30) mg/dL Glucose 126 H 148 H (70-105) mg/dL Calcium 8.3 L 7.9 L (8.6-10.3) mg/dL Adrenal panel 05/17/18 05/18/18 Range/Units 04:00 04:35 Sodium 133 L 130 L (136-145) mEq/L Potassium 3.5 3.0 L (3.5-5.1) mEq/L Chloride 95 L 98 (98-107) mEq/L Carbon Dioxide 29 30 H (23-29) mEq/L BUN 22 22 (8-23) mg/dL Creatinine 0.33 L 0.30 L (0.70-1.30) mg/dL Glucose 126 H 148 H (70-105) mg/dL Calcium 8.3 L 7.9 L (8.6-10.3) mg/dL Total Bilirubin 0.4 (0.3-1.0) mg/dL AST 11 L (13-39) Units/L ALT 8 (7-52) Units/L Alkaline Phosphatase 275 H (34-104) Units/L Albumin 3.7 (3.5-5.7) g/dL - VTE Documentation of Mechanical Device: Intermittent pneumatic compression device Consult Discharge Plan - Plan Referrals: Breanna Ocampo CNP [Advanced Practice Nurse] -
[2018-05-18] MEDS ORDERED: Clinimix E 5%-20% SOLUTION 2,000 ML with MVI, adult with vitamin K 10 ML, Trace Eleme... IVC SCH (17:00)
[2018-05-19] MEDS: Metoclopramide 10 MG/2 ML VIAL IVP SCH ×4 (00:07→18:01)
[2018-05-19] MEDS: *HR* Metoprolol 5 MG/5 ML VIAL IVP SCH ×4 (00:11→18:01)
[2018-05-19] MEDS: Ipratropium/Albuterol Neb 3 ML IH SCH ×5 (03:41→20:33)
[2018-05-19 05:06] LABS: BUN/Creatinine Ratio 64 (6-26); Blood Urea Nitrogen 21 mg/dL (8-23); Calcium 7.9 mg/dL (8.6-10.3); Carbon Dioxide 28 mEq/L (23-29); Chloride 98 mEq/L (98-107); Glucose 139 mg/dL (70-105); Magnesium 1.8 mg/dL (1.6-2.6); Osmolality,Calculated 275 (280-300); Phosphorous 3.7 mg/dL (2.7-4.5); Potassium 3.5 mEq/L (3.5-5.1); Sodium 130 mEq/L (136-145); eGFR For Non-African Americans > 60 (> 60)
[2018-05-19] MEDS: Pantoprazole 40 MG VIAL IVP SCH (06:14)
--- NOTE | 2018-05-19 07:43 | Urology Progress Note ---
Date of Encounter: 05/19/18 Time of Encounter: 07:20 - Assessment and Plan (1) Gross hematuria Current Visit: Yes Status: Acute Assessment and plan: Patient is a 67 year old male with a history of gross hematuria. Urine appears transparent pink lemonade in catheter tubing. Dr. Woodruff performed hand irrigation through 3 way catheter this morning. CBI discontinued. Will discuss findings with Dr. Woodruff. Progress Note Subjective: no new complaints, feels better Narrative: Patient seen and examined sitting upright in bed undergoing breathing treatment. Patient states feeling well with no new concerns. Patient states Dr. Woodruff was in this morning to irrigate his Acosta catheter. Patient denies any pain or feeling of obstruction around his catheter. Objective Initial Vital Signs Temp Pulse Resp BP Pulse Ox 97.6 F 100 16 83/48 97 04/26/18 13:10 04/26/18 13:10 04/26/18 13:10 04/26/18 13:10 04/26/18 13:10 - General physical appearance Present: no distress, no pain, chronically ill - Respiratory Present: normal expansion, other (undergoing breathing treatment ) - Abdomen Present: soft, non tender - Genitourinary Present: normal penis with no external lesions, testicles present, other ( indwelling urethral catheter sufficiently draining pink-lemonade urine into bedside bag; no clots or sediment observed ) Urine Appearance: Present: Clear, Hematuria - Integumentary Present: no rash, no abnormal pigmentation - Musculoskeletal Present: normal posture - Psychiatric Present: oriented to time, oriented to person, oriented to place, speech is normal, memory intact - Labs 05/18/18 04:35 05/19/18 04:30 Diabetes panel 05/19/18 05/19/18 Range/Units 04:30 04:30 Sodium 130 L (136-145) mEq/L Potassium 3.5 (3.5-5.1) mEq/L Chloride 98 (98-107) mEq/L Carbon Dioxide 28 (23-29) mEq/L BUN 21 (8-23) mg/dL Creatinine 0.33 L (0.70-1.30) mg/dL Glucose 139 H (70-105) mg/dL Calcium 7.9 L (8.6-10.3) mg/dL Triglycerides 119 (< 150) mg/dL Calcium panel 05/19/18 Range/Units 04:30 Calcium 7.9 L (8.6-10.3) mg/dL Phosphorus 3.7 (2.7-4.5) mg/dL Pituitary panel 05/19/18 Range/Units 04:30 Sodium 130 L (136-145) mEq/L Potassium 3.5 (3.5-5.1) mEq/L Chloride 98 (98-107) mEq/L Carbon Dioxide 28 (23-29) mEq/L BUN 21 (8-23) mg/dL Creatinine 0.33 L (0.70-1.30) mg/dL Glucose 139 H (70-105) mg/dL Calcium 7.9 L (8.6-10.3) mg/dL Adrenal panel 05/19/18 Range/Units 04:30 Sodium 130 L (136-145) mEq/L Potassium 3.5 (3.5-5.1) mEq/L Chloride 98 (98-107) mEq/L Carbon Dioxide 28 (23-29) mEq/L BUN 21 (8-23) mg/dL Creatinine 0.33 L (0.70-1.30) mg/dL Glucose 139 H (70-105) mg/dL Calcium 7.9 L (8.6-10.3) mg/dL - VTE Documentation of Mechanical Device: Intermittent pneumatic compression device Consult Discharge Plan - Plan Referrals: Breanna Ocampo CNP [Advanced Practice Nurse] -
--- NOTE | 2018-05-19 08:03 | General Surgery Progress Note ---
Date of Encounter: 05/19/18 Time of Encounter: 07:45 - Assessment and Plan (1) Small bowel obstruction Current Visit: Yes Status: Acute POD #9 Exporter laparotomy with lysis of adhesions 45 minutes, Small bowel resection due to adhesio lysis, Right colectomy with Dr. Bess NPO NG clamp today for administration of gastrograffin load- will give 1/3-1/2 of traditional dose for SBFT (discussed with radiology) Perform hemming and tacking machine operator film now and then repeat KUB at 8am 05/20/18 TPN for nutritional support Supportive care and pain control IS every 1 hour while awake Out of bed to chair TID with assistance Daily wound care- packing Remove FROILAN drain Surgery will continue to follow for mangement of NG, diet, wound care (2) Incarcerated incisional hernia Current Visit: Yes Status: Acute POD #21 from an open incisional hernia repair with mesh with Dr. Bess. Supportive care and pain control Daily wound care IS every 1 hour while awake Out of bed to chair TID with assistance Surgery will continue to follow (3) Ileus, postoperative Current Visit: Yes Status: Acute NPO NG clamp today for administration of gastrograffin load- will give 1/3-1/2 of traditional dose for SBFT (discussed with radiology) Perform hemming and tacking machine operator film now and then repeat KUB at 8am 05/20/18 Reglan IV every hours TPN for nutritional support (4) Bilateral pleural effusion Current Visit: Yes Status: Acute S/P drainage of left pleural effusion per pulmonary/critical care team 05/17/18 Continue to monitor and provide supportive care IS every 1 hour while awake Pulmonary toilet (5) COPD (chronic obstructive pulmonary disease) Current Visit: Yes Status: Chronic Management per pulmonary team IS every 1 hour while awake Pulmonary toilet Qualifiers: COPD type: chronic bronchitis Chronic bronchitis type: unspecified Qualified Code(s): J42 - Unspecified chronic bronchitis (6) Pneumonia Current Visit: Yes Status: Acute Management per medicine team Antibiotics de-escalated 05/18/18 Qualifiers: Pneumonia type: due to unspecified organism Laterality: right Lung location: lower lobe of lung Qualified Code(s): J18.1 - Lobar pneumonia, unspecified organism (7) Gross hematuria Current Visit: Yes Status: Acute Improved Urology following Acosta catheter to SD with CBI (8) Lung nodule seen on imaging study Current Visit: Yes Status: Chronic Patient with need further imaging as outpatient- PET scan Outpatient appointment with oncology- Dr. Richard for further work-up (9) DVT prophylaxis Current Visit: Yes Status: Acute Hold heparin due to hematuria EPCDs to bilateral lower extremties for DVT prophylaxis Out of bed to chair TID with assistance Subjective Patient reports: no new complaints, still having pain, pain is less, no flatus, no bowel movement, afebrile Objective Vital Signs - Last 8 Hours Temp Pulse Resp BP Pulse Ox 05/19/18 07:34 18 97 05/19/18 07:21 98.1 F 90 18 115/66 95 05/19/18 04:50 98.2 F 106 18 121/66 92 05/19/18 03:42 18 96 Intake and Output 05/18/18 05/19/18 05/19/18 23:59 07:59 15:59 Intake Total 1732 / 1732 250 / 250 Output Total 525 / 525 460 / 460 Balance 1207 / 1207 -210 / -210 Intake: IV Fluids 250 / 250 Intralipid 20% 250 ML @ 21 mls/ 250 / 250 hr IVPB DAILY@1700 [facility] Rx#: [id number] Other 1732 / 1732 Output: Urine 525 / 525 400 / 400 Gastric Drainage 50 / 50 R Nares 50 / 50 Wound Drainage Left Abdomen Other: Intake, CBI Fluid 1,200 1,000 Output, CBI Fluid 1,225 1,200 Weight 73.4 kg Blood Glucose* 118 142 - General physical appearance well developed, no distress - Eyes normal ocular movement - ENT dry mucosa, atraumatic, normocephalic - Neck Neck exam: trachea midline - Respiratory normal respiratory effort, clear to auscultation, other (diminished bibasilar bases) - Cardiovascular Cardiovascular exam: Present: RRR - Abdomen Abdomen: Present: soft, tender (minimal, expected post-operative tenderness), wound (NG tube to LIWS with scant amount of clear drainage noted; FROILAN drain with scant amount of serous drainage noted.) - Incision Incision: Present: open (Midline with 2 open areas noted with small amount of serous drainage without odor) - Genitourinary other (Acosta catheter to SD with CBI running) - Neurologic CN 2-12 grossly intact - Musculoskeletal other (physical deconditioning noted) - Psychiatric oriented to time, oriented to person, oriented to place, speech is normal, memory intact - Labs 05/18/18 04:35 05/19/18 04:30 Diabetes panel 05/19/18 05/19/18 Range/Units 04:30 04:30 Sodium 130 L (136-145) mEq/L Potassium 3.5 (3.5-5.1) mEq/L Chloride 98 (98-107) mEq/L Carbon Dioxide 28 (23-29) mEq/L BUN 21 (8-23) mg/dL Creatinine 0.33 L (0.70-1.30) mg/dL Glucose 139 H (70-105) mg/dL Calcium 7.9 L (8.6-10.3) mg/dL Triglycerides 119 (< 150) mg/dL Calcium panel 05/19/18 Range/Units 04:30 Calcium 7.9 L (8.6-10.3) mg/dL Phosphorus 3.7 (2.7-4.5) mg/dL Pituitary panel 05/19/18 Range/Units 04:30 Sodium 130 L (136-145) mEq/L Potassium 3.5 (3.5-5.1) mEq/L Chloride 98 (98-107) mEq/L Carbon Dioxide 28 (23-29) mEq/L BUN 21 (8-23) mg/dL Creatinine 0.33 L (0.70-1.30) mg/dL Glucose 139 H (70-105) mg/dL Calcium 7.9 L (8.6-10.3) mg/dL Adrenal panel 05/19/18 Range/Units 04:30 Sodium 130 L (136-145) mEq/L Potassium 3.5 (3.5-5.1) mEq/L Chloride 98 (98-107) mEq/L Carbon Dioxide 28 (23-29) mEq/L BUN 21 (8-23) mg/dL Creatinine 0.33 L (0.70-1.30) mg/dL Glucose 139 H (70-105) mg/dL Calcium 7.9 L (8.6-10.3) mg/dL - VTE Documentation of Mechanical Device: Intermittent pneumatic compression device Consult Discharge Plan - Plan Referrals: Breanna Ocampo, ELECTRONICS HARDWARE DESIGN ENGINEER [Advanced Practice Nurse] - - Attending Attestation For this encounter, I have reviewed the DICTATING MACHINE MECHANIC or PA documentation, treatment plan, and medical decision making; and I have had face to face time with this patient.
[2018-05-19] MEDS ORDERED: Acetaminophen 650 MG RECTAL SUPP RC PRN (08:17)
[2018-05-19 09:15] LABS: Basophils # 0.1 K/mcL (0.0-0.2); Basophils % 0.4 %; Eosinophils # 0.4 K/mcL (0.0-0.6); Eosinophils % 2.9 %; Hematocrit 22.2 % (37.5-50.1); Hemoglobin 7.3 g/dL (12.9-16.9); Immature Granulocytes % 5.8 % (0-4); Lymphocytes # 1.3 K/mcL (0.6-4.6); Lymphocytes % 9.1 %; Mean Corpuscular HGB Conc 32.9 g/dL (31.6-35.5); Mean Corpuscular Volume 91.4 fL (83.0-100.0); Monocytes # 1.2 K/mcL (0.0-1.3); Monocytes % 8.8 %; Platelet Count 602 K/mcL (140-400); Red Blood Count 2.43 M/mcL (4.19-5.50); Red Cell Distribution Width 15.5 % (11.5-14.5)
[2018-05-19 09:45] LABS: Neutrophils # 10.2 K/mcL (1.6-8.9)
[2018-05-19 10:00] LABS: Toxic Granulation Present (Not Present)
[2018-05-19 10:01] LABS: Platelet Estimate Increased (Normal)
[2018-05-19] MEDS: Furosemide 40 MG/4 ML VIAL IVP SCH ×3 (11:15→18:01)
[2018-05-19] MEDS: OXYCODONE Oral CONC 10 MG/0.5 ML ORAL.SYG SL PRN ×2 (11:35→18:07)
--- NOTE | 2018-05-19 16:29 | Internal Med Progress Note ---
Hospitalist Progress Note - Encounter Date of Encounter: 05/19/18 Time of Encounter: 11:15 - Subjective Interval History: Patient sitting up in chair. Complains of abdominal pain and back pain. Still not passed any flatus or stools. Continuing CBI. Shortness of breath is improved. On 1 L nasal cannula. Denies any chest pain. - Exam Vitals: Temp Pulse Resp BP Pulse Ox 97.8 F 108 18 107/67 93 05/19/18 11:28 05/19/18 11:28 05/19/18 15:53 05/19/18 11:28 05/19/18 15:53 Exam: General: Patient is alert, no acute distress, oriented x 3 Head: atraumatic, normocephalic, ENT: mucous membranes moist, normal external ear exam NG tube in place to low intermittent suction Neck: normal inspection, trachea midline, full ROM, no carotid bruits Chest: normal inspection, symmetric chest rise Respiratory: Decreased breath sounds at bases bases but greater on the right. Prolonged expiratory phase. Cardiovascular: Regular rate and rhythm. S1 and S2 are normal No clicks, rubs , gallops, or murmurs. Tachycardia present. Abdomen: Abdomen is soft, distended. Decreased bowel sounds. Musculoskeletal: Spontaneously moving all extremities. Skin: warm, dry, intact. Neuro: Alert oriented x 3 normal cranial nerves, no focal deficits Psych: Patient's affect is normal - Assessment and Plan (1) Acute respiratory failure with hypoxia Current Visit: Yes Status: Acute Assessment and Plan: Continues to do better. On minimal O2 supplementation. Encouraged incentive spirometry. Status post thoracentesis 2 days back. Fluid analysis suggests transudative effusion. (2) Small bowel obstruction Current Visit: Yes Status: Acute Assessment and Plan: Status post exploratory laparotomy with lysis of adhesions. Postop day 9. Small bowel resection and right colectomy also done at that time. Surgery following. Recommend small bowel follow-through with Gastrografin. On TPN. FROILAN drain to be removed today. Encourage activity. Encouraged to sit up in chair. (3) Gross hematuria Current Visit: Yes Status: Acute Assessment and Plan: Urology following. On CBI. Hemoglobin levels stable. We will continue to monitor. Hold medical anticoagulation. (4) COPD (chronic obstructive pulmonary disease) Current Visit: Yes Status: Chronic Assessment and Plan: Continue bronchodilators. O2 supplementation as needed. (5) Umbilical hernia Current Visit: Yes Status: Acute Assessment and Plan: Status post-incisional hernia repair. (6) NUNU (acute kidney injury) Current Visit: Yes Status: Resolved (7) SIRS (systemic inflammatory response syndrome) Current Visit: Yes Status: Resolved (8) Electrolyte imbalance Current Visit: Yes Status: Acute Assessment and Plan: Continue to replete with TPN. (9) Essential hypertension Current Visit: Yes Status: Chronic Assessment and Plan: Blood pressure is well controlled at this time. (10) Pneumonia Current Visit: Yes Status: Resolved Assessment and Plan: Completed antibiotic course. (11) Lung nodule seen on imaging study Current Visit: Yes Status: Chronic Assessment and Plan: Needs follow-up as outpatient. (12) Tachycardia Current Visit: Yes Status: Acute Assessment and Plan: Heart rate has improved over the past couple of days. We will continue to monitor. Likely related to anemia (13) Protein calorie malnutrition Current Visit: Yes Status: Acute Assessment and Plan: Continue TPN. Patient still does not have bowel function. DVT Prophylaxis: SCDs - Time Spent with Patient Total time spent is greater than 50% in coordination of care (as documented) at patient's floor/unit and/or counseling patient: Plan of Care Discussed with: patient Internal Medicine: Result - Labs CBC & Chem 7: 05/19/18 09:00 05/19/18 04:30 Labs: Short CBC 05/19/18 Range/Units 09:00 WBC 14.0 H (4.3-11.1) K/mcL Hgb 7.3 L (12.9-16.9) g/dL Hct 22.2 L (37.5-50.1) % Plt Count 602 H (140-400) K/mcL Neutrophils # 10.2 H (1.6-8.9) K/mcL BMP 05/19/18 04:30 Sodium 130 L Potassium 3.5 Chloride 98 Carbon Dioxide 28 BUN 21 Creatinine 0.33 L Glucose 139 H Calcium 7.9 L - ABG Interpretation ABG results: ABG ABG pH 7.52 pH Units (7.32-7.45) H 05/17/18 09:58 ABG pCO2 39 mmHg (35-45) 05/17/18 09:58 ABG pO2 62 mmHg (85-104) L 05/17/18 09:58 ABG O2 Saturation 94 % (95-98) L 05/17/18 09:58 PT/INR, D-dimer PT 16.0 Seconds (9.4-12.1) H 05/17/18 04:00 - Impressions Impressions KUB X-Ray 05/19/18 11:30 IMPRESSION: Findings again suggest a diffuse ileus with some increased distention of small bowel loops. D/ / 05/19/2018 10:22:54 Hubert Burns MD / Brandie Hardwick Interpreting Provider: Hubert Burns MD - VTE Documentation of Mechanical Device: Intermittent pneumatic compression device Consult Discharge Plan - Plan Referrals: Breanna Ocampo, RECRUITING SPECIALIST [Advanced Practice Nurse] - (4) COPD (chronic obstructive pulmonary disease) Qualifiers: COPD type: chronic bronchitis Chronic bronchitis type: unspecified Qualified Code(s): J42 - Unspecified chronic bronchitis (5) Umbilical hernia Qualifiers: Obstruction and gangrene presence: with obstruction but without gangrene Qualified Code(s): K42.0 - Umbilical hernia with obstruction, without gangrene (10) Pneumonia Qualifiers: Pneumonia type: due to unspecified organism Laterality: right Lung location : lower lobe of lung Qualified Code(s): J18.1 - Lobar pneumonia, unspecified organism (13) Protein calorie malnutrition Qualifiers: Protein-calorie malnutrition severity: severe Qualified Code(s): E43 - Unspecified severe protein-calorie malnutrition
[2018-05-19] MEDS ORDERED: Clinimix E 5%-20% SOLUTION 2,000 ML with MVI, adult with vitamin K 10 ML, Trace Eleme... IVC SCH (17:00)
[2018-05-20] MEDS: Metoclopramide 10 MG/2 ML VIAL IVP SCH ×4 (00:37→17:05)
[2018-05-20] MEDS: *HR* Metoprolol 5 MG/5 ML VIAL IVP SCH ×5 (00:42→17:14)
[2018-05-20] MEDS: Ipratropium/Albuterol Neb 3 ML IH SCH ×7 (00:46→23:44)
[2018-05-20 05:43] LABS: Basophils # 0.1 K/mcL (0.0-0.2); Basophils % 0.5 %; Eosinophils # 0.6 K/mcL (0.0-0.6); Eosinophils % 3.3 %; Hematocrit 24.4 % (37.5-50.1); Hemoglobin 8.1 g/dL (12.9-16.9); Immature Granulocytes % 4.4 % (0-4); Lymphocytes # 1.4 K/mcL (0.6-4.6); Mean Corpuscular HGB Conc 33.2 g/dL (31.6-35.5); Mean Corpuscular Hemoglobin 29.3 pg (28.0-33.3); Mean Corpuscular Volume 88.4 fL (83.0-100.0); Mean Platelet Volume 9.9 fL (9.4-12.4); Monocytes # 1.4 K/mcL (0.0-1.3); Monocytes % 7.8 %; Neutrophils # 13.3 K/mcL (1.6-8.9); Platelet Count 724 K/mcL (140-400); Red Blood Count 2.76 M/mcL (4.19-5.50); Red Cell Distribution Width 15.4 % (11.5-14.5)
[2018-05-20 06:04] LABS: BUN/Creatinine Ratio 67 (6-26); Blood Urea Nitrogen 24 mg/dL (8-23); Calcium 8.3 mg/dL (8.6-10.3); Carbon Dioxide 27 mEq/L (23-29); Chloride 97 mEq/L (98-107); Glucose 132 mg/dL (70-105); Osmolality,Calculated 278 (280-300); Potassium 3.6 mEq/L (3.5-5.1); Sodium 131 mEq/L (136-145); eGFR For Non-African Americans > 60 (> 60)
[2018-05-20] MEDS: Pantoprazole 40 MG VIAL IVP SCH (06:37)
--- NOTE | 2018-05-20 07:43 | General Surgery Progress Note ---
<KristianashleyLeilani ku E - Last Filed: 05/20/18 12:04> Date of Encounter: 05/20/18 Time of Encounter: 07:41 - Assessment and Plan (1) Umbilical hernia Current Visit: Yes Status: Acute POD #10 Exploratory laparatomy with lysis of adhesions x 45 mins, small bowel resection due to adension lysis, right colectomy with Dr. Maria Alejandra CLAUDIO NG clamped for administration of gastrograffin load (05/19/18), First KUB done 07/27 second to be done 05/20/18 at 8 am NG needs to be placed back on intermediate wall suction, this was telephoned down to his nurse on 2A at 9:05 TPN for nutritional support Supportive care and Pain control IS every hour while awake OOB to chair TID with assistance Daily wound care- packing, twice a day with extra gauze to catch drainage FROILAN Drain has been removed Surgery will continue to follow for mgmt of NG, diet, wound care Qualifiers: Obstruction and gangrene presence: with obstruction but without gangrene Qualified Code(s): K42.0 - Umbilical hernia with obstruction, without gangrene (2) Fever, unknown origin Current Visit: Yes Status: Resolved (3) Ileus, postoperative Current Visit: Yes Status: Acute see above (4) COPD (chronic obstructive pulmonary disease) Current Visit: Yes Status: Chronic per primary team Qualifiers: COPD type: chronic bronchitis Chronic bronchitis type: unspecified Qualified Code(s): J42 - Unspecified chronic bronchitis Subjective Patient reports: pain is less, no flatus, no bowel movement, other (Patient states he is slowly feeling better. Still some pain in his abdomen area around incision. He denies flatus and bowel movement. Says he is breathing much better. ) Objective Vital Signs - Last 8 Hours Temp Pulse Resp BP Pulse Ox 05/20/18 07:13 98.5 F 97 18 114/70 94 05/20/18 03:41 17 93 05/20/18 03:34 97.9 F 101 18 148/72 93 05/19/18 23:47 98.5 F 108 18 133/70 90 Intake and Output 05/19/18 05/19/18 05/20/18 15:59 23:59 07:59 Output Total 250 / 250 1450 / 1450 Balance -250 / -250 -1450 / -1450 Output: Urine 250 / 250 1450 / 1450 Other: Intake, CBI Fluid 2,700 3,000 Output, CBI Fluid 2,950 3,000 Weight 73 kg Blood Glucose* 157 133 148 - General physical appearance well developed, moderate distress, chronically ill - Respiratory normal expansion, normal respiratory effort, clear to auscultation - Cardiovascular Cardiovascular exam: Present: RRR, no murmurs/rubs/gallops - Abdomen Abdomen: Present: distended, tender - Incision Incision: Present: draining (serosanguinous, no purulence), intact - Integumentary no rash, no growths, no abnormal pigmentation - Musculoskeletal normal posture - Psychiatric oriented to time, oriented to person, oriented to place - Labs 05/20/18 05:03 05/20/18 05:03 Diabetes panel 05/20/18 Range/Units 05:03 Sodium 131 L (136-145) mEq/L Potassium 3.6 (3.5-5.1) mEq/L Chloride 97 L (98-107) mEq/L Carbon Dioxide 27 (23-29) mEq/L BUN 24 H (8-23) mg/dL Creatinine 0.36 L (0.70-1.30) mg/dL Glucose 132 H (70-105) mg/dL Calcium 8.3 L (8.6-10.3) mg/dL Calcium panel 05/20/18 Range/Units 05:03 Calcium 8.3 L (8.6-10.3) mg/dL Pituitary panel 05/20/18 Range/Units 05:03 Sodium 131 L (136-145) mEq/L Potassium 3.6 (3.5-5.1) mEq/L Chloride 97 L (98-107) mEq/L Carbon Dioxide 27 (23-29) mEq/L BUN 24 H (8-23) mg/dL Creatinine 0.36 L (0.70-1.30) mg/dL Glucose 132 H (70-105) mg/dL Calcium 8.3 L (8.6-10.3) mg/dL Adrenal panel 05/20/18 Range/Units 05:03 Sodium 131 L (136-145) mEq/L Potassium 3.6 (3.5-5.1) mEq/L Chloride 97 L (98-107) mEq/L Carbon Dioxide 27 (23-29) mEq/L BUN 24 H (8-23) mg/dL Creatinine 0.36 L (0.70-1.30) mg/dL Glucose 132 H (70-105) mg/dL Calcium 8.3 L (8.6-10.3) mg/dL - VTE Documentation of Mechanical Device: Intermittent pneumatic compression device Consult Discharge Plan - Plan Referrals: Breanna Ocampo, PIPING MANAGER [Advanced Practice Nurse] - <Yin Chavez - Last Filed: 05/20/18 14:05> Date of Encounter: 05/20/18 - Assessment and Plan (1) Gross hematuria Current Visit: Yes Status: Acute managed per urology (2) Ileus, postoperative Current Visit: Yes Status: Acute patient with postoperative ileus. not unexpected for clinical picture contiinue daily wound care npo, ngt to LIWS due to significant small bowel and colon distention continue TPN prn pain control PT/OT ambulate OOB in chair at least BID awaiting return of bowel function (3) Leukocytosis Current Visit: Yes Status: Acute monitor, may be related to bowel distention, no fevers, no tacchycardia Qualifiers: Leukocytosis type: unspecified Qualified Code(s): D72.829 - Elevated white blood cell count, unspecified Subjective Patient reports: no new complaints, feels better, still having pain, no flatus, no bowel movement, afebrile, other Narrative: states overall feels a little better today, still distended no flatus or bm, denies nausea Objective Vital Signs - Last 8 Hours Temp Pulse Resp BP Pulse Ox 05/20/18 11:10 98.1 F 101 18 125/71 94 05/20/18 11:08 18 94 05/20/18 07:36 17 91 05/20/18 07:13 98.5 F 97 18 114/70 94 Intake and Output 05/19/18 05/20/18 05/20/18 23:59 07:59 15:59 Output Total 1450 / 1450 2350 / 2350 Balance -1450 / -1450 -2350 / -2350 Output: Urine 1450 / 1450 Catheter 2350 / 2350 Other: Intake, CBI Fluid 3,000 Output, CBI Fluid 3,000 Weight 73 kg Blood Glucose* 133 148 145 - General physical appearance no distress, chronically ill - Eyes PERRL, normal ocular movement - ENT normal mucosa, normocephalic - Neck Neck exam: trachea midline - Respiratory normal expansion, clear to auscultation - Cardiovascular Cardiovascular exam: Present: RRR - Abdomen Abdomen: Present: soft, distended, tender (generalized). Absent: bowel sounds present, guarding, rebound - Incision Incision: Present: draining, open (packed) - Integumentary no rash, no growths - Musculoskeletal normal posture - Psychiatric oriented to time, oriented to person, oriented to place, memory intact - Labs 05/20/18 05:03 05/20/18 05:03 Diabetes panel 05/20/18 Range/Units 05:03 Sodium 131 L (136-145) mEq/L Potassium 3.6 (3.5-5.1) mEq/L Chloride 97 L (98-107) mEq/L Carbon Dioxide 27 (23-29) mEq/L BUN 24 H (8-23) mg/dL Creatinine 0.36 L (0.70-1.30) mg/dL Glucose 132 H (70-105) mg/dL Calcium 8.3 L (8.6-10.3) mg/dL Calcium panel 05/20/18 Range/Units 05:03 Calcium 8.3 L (8.6-10.3) mg/dL Pituitary panel 05/20/18 Range/Units 05:03 Sodium 131 L (136-145) mEq/L Potassium 3.6 (3.5-5.1) mEq/L Chloride 97 L (98-107) mEq/L Carbon Dioxide 27 (23-29) mEq/L BUN 24 H (8-23) mg/dL Creatinine 0.36 L (0.70-1.30) mg/dL Glucose 132 H (70-105) mg/dL Calcium 8.3 L (8.6-10.3) mg/dL Adrenal panel 05/20/18 Range/Units 05:03 Sodium 131 L (136-145) mEq/L Potassium 3.6 (3.5-5.1) mEq/L Chloride 97 L (98-107) mEq/L Carbon Dioxide 27 (23-29) mEq/L BUN 24 H (8-23) mg/dL Creatinine 0.36 L (0.70-1.30) mg/dL Glucose 132 H (70-105) mg/dL Calcium 8.3 L (8.6-10.3) mg/dL - Attending Attestation I examined this patient and my medical decision-making was reviewed with the Resident Physician. I agree with the documented findings, disposition and treatment plan as described except to the extent set forth below.
[2018-05-20] MEDS: Furosemide 40 MG/4 ML VIAL IVP SCH ×3 (08:10→17:05)
--- NOTE | 2018-05-20 10:03 | Urology Progress Note ---
Date of Encounter: 05/20/18 Time of Encounter: 10:01 - Assessment and Plan (1) Gross hematuria Current Visit: Yes Status: Acute Assessment and plan: 67-year-old man with gross hematuria. Urine is slowly becoming more clear. I spoke with the nurse today and we will titrate down the CBI. Hopefully we can keep it off at this time. Urology will follow along. Progress Note Narrative: Urine is clearing today. He is on slow CBI with only slightly pink tinged urine at this time. He is tolerating the catheter well. Objective Initial Vital Signs Temp Pulse Resp BP Pulse Ox 97.6 F 100 16 83/48 97 04/26/18 13:10 04/26/18 13:10 04/26/18 13:10 04/26/18 13:10 04/26/18 13:10 - General physical appearance Present: well developed, well nourished, no distress - Respiratory Present: normal respiratory effort - Abdomen Present: soft - Genitourinary Present: normal penis with no external lesions, other (Acosta in place with clear to pink tinged urine.) - Labs 05/20/18 05:03 05/20/18 05:03 Diabetes panel 05/20/18 Range/Units 05:03 Sodium 131 L (136-145) mEq/L Potassium 3.6 (3.5-5.1) mEq/L Chloride 97 L (98-107) mEq/L Carbon Dioxide 27 (23-29) mEq/L BUN 24 H (8-23) mg/dL Creatinine 0.36 L (0.70-1.30) mg/dL Glucose 132 H (70-105) mg/dL Calcium 8.3 L (8.6-10.3) mg/dL Calcium panel 05/20/18 Range/Units 05:03 Calcium 8.3 L (8.6-10.3) mg/dL Pituitary panel 05/20/18 Range/Units 05:03 Sodium 131 L (136-145) mEq/L Potassium 3.6 (3.5-5.1) mEq/L Chloride 97 L (98-107) mEq/L Carbon Dioxide 27 (23-29) mEq/L BUN 24 H (8-23) mg/dL Creatinine 0.36 L (0.70-1.30) mg/dL Glucose 132 H (70-105) mg/dL Calcium 8.3 L (8.6-10.3) mg/dL Adrenal panel 05/20/18 Range/Units 05:03 Sodium 131 L (136-145) mEq/L Potassium 3.6 (3.5-5.1) mEq/L Chloride 97 L (98-107) mEq/L Carbon Dioxide 27 (23-29) mEq/L BUN 24 H (8-23) mg/dL Creatinine 0.36 L (0.70-1.30) mg/dL Glucose 132 H (70-105) mg/dL Calcium 8.3 L (8.6-10.3) mg/dL - VTE Documentation of Mechanical Device: Intermittent pneumatic compression device Consult Discharge Plan - Plan Referrals: Breanna Ocampo, WEATHERIZATION CREW LEADER [Advanced Practice Nurse] -
--- NOTE | 2018-05-20 12:29 | Internal Med Progress Note ---
Hospitalist Progress Note - Encounter Date of Encounter: 05/20/18 Time of Encounter: 11:35 - Subjective Interval History: Patient is lying in bed. NG tube to low intermittent suction. Complaints of cough and sputum production. However breathing is much better overall. Abdomen remains distended. Has not passed flatus or stools yet. No response to small bowel follow-through. - Exam Vitals: Temp Pulse Resp BP Pulse Ox 98.1 F 101 18 125/71 94 05/20/18 11:10 05/20/18 11:10 05/20/18 11:10 05/20/18 11:10 05/20/18 11:10 Exam: General: Patient is alert, no acute distress, oriented x 3 Head: atraumatic, normocephalic, Neck: normal inspection, trachea midline, full ROM, no carotid bruits Chest: normal inspection, symmetric chest rise Respiratory: Prolonged expiratory phase. Decreased breath sounds at both bases Cardiovascular: Regular rate and rhythm. s1 and s2 No clicks, rubs, gallops, or murmurs. No pedal edema Abdomen: Abdomen is soft, distended, tender. No bowel sounds yet. FROILAN drain removed yesterday. Wound remains open. Musculoskeletal: Moving all extremities spontaneously. Skin: warm, dry, intact. Neuro: Alert oriented x 3 normal cranial nerves, no focal deficits Psych: Patient's affect is normal - Assessment and Plan (1) Acute respiratory failure with hypoxia Current Visit: Yes Status: Acute Assessment and Plan: Continues to improve. On 2 L O2 supplementation at this time. Encourage incentive spirometry. Encourage ambulation and physical therapy. (2) Small bowel obstruction Current Visit: Yes Status: Acute Assessment and Plan: Continues to have postoperative ileus. No response to small bowel follow- through done yesterday. X-rays still show dilated bowel loops. NG connected to low intermittent suction. Surgery following. Continue local wound care. WBC count did rise up. Do not suspect worsening pneumonia. Patient has received multiple courses of antibiotics all through his stay here. We will continue to monitor WBC count. If patient develops any fevers, we will send blood cultures. For now hold off on any further antibiotics. (3) Gross hematuria Current Visit: Yes Status: Acute Assessment and Plan: Improving. Urology following. On CBI. (4) COPD (chronic obstructive pulmonary disease) Current Visit: Yes Status: Chronic Assessment and Plan: Continue bronchodilators as needed. (5) Umbilical hernia Current Visit: Yes Status: Acute Assessment and Plan: Status post-incisional hernia repair earlier during this hospitalization. Had postoperative complications. Surgery following. (6) NUNU (acute kidney injury) Current Visit: Yes Status: Resolved (7) SIRS (systemic inflammatory response syndrome) Current Visit: Yes Status: Resolved (8) Electrolyte imbalance Current Visit: Yes Status: Acute Assessment and Plan: Patient remains on TPN. Electrolytes being repleted with TPN. (9) Essential hypertension Current Visit: Yes Status: Chronic (10) Pneumonia Current Visit: Yes Status: Resolved (11) Lung nodule seen on imaging study Current Visit: Yes Status: Chronic Assessment and Plan: Follow-up outpatient (12) Tachycardia Current Visit: Yes Status: Acute Assessment and Plan: Most likely related to anemia, acute illness. Continue beta deisy (13) Protein calorie malnutrition Current Visit: Yes Status: Acute Assessment and Plan: Continue TPN. DVT Prophylaxis: EPCDs alone. Heparin held after patient developed hematuria - Time Spent with Patient Total time spent is greater than 50% in coordination of care (as documented) at patient's floor/unit and/or counseling patient: Internal Medicine: Result - Labs CBC & Chem 7: 05/20/18 05:03 05/20/18 05:03 Labs: Short CBC 05/20/18 Range/Units 05:03 WBC 17.6 H (4.3-11.1) K/mcL Hgb 8.1 L (12.9-16.9) g/dL Hct 24.4 L (37.5-50.1) % Plt Count 724 H (140-400) K/mcL Neutrophils # 13.3 H (1.6-8.9) K/mcL BMP 05/20/18 05:03 Sodium 131 L Potassium 3.6 Chloride 97 L Carbon Dioxide 27 BUN 24 H Creatinine 0.36 L Glucose 132 H Calcium 8.3 L - ABG Interpretation ABG results: ABG ABG pH 7.52 pH Units (7.32-7.45) H 05/17/18 09:58 ABG pCO2 39 mmHg (35-45) 05/17/18 09:58 ABG pO2 62 mmHg (85-104) L 05/17/18 09:58 ABG O2 Saturation 94 % (95-98) L 08/08/18 09:58 PT/INR, D-dimer PT 16.0 Seconds (9.4-12.1) H 05/17/18 04:00 - Impressions Impressions KUB X-Ray 05/19/18 11:30 IMPRESSION: Findings again suggest a diffuse ileus with some increased distention of small bowel loops. D/ / 05/19/2018 10:22:54 Hubert Burns MD / Brandie Hardwick Interpreting Provider: Hubert Burns MD X-Ray 05/20/18 08:00 IMPRESSION: Increasing small and large bowel distention suggests continued ileus. D/ / 05/20/2018 10:25:29 Adryan Rios MD / [facility] Interpreting Provider: Adryan Rios MD - VTE Documentation of Mechanical Device: Intermittent pneumatic compression device Consult Discharge Plan - Plan Referrals: Breanna Ocampo, ROBOTIC MACHINE OPERATOR [Advanced Practice Nurse] - (4) COPD (chronic obstructive pulmonary disease) Qualifiers: COPD type: chronic bronchitis Chronic bronchitis type: unspecified Qualified Code(s): J42 - Unspecified chronic bronchitis (5) Umbilical hernia Qualifiers: Obstruction and gangrene presence: with obstruction but without gangrene Qualified Code(s): K42.0 - Umbilical hernia with obstruction, without gangrene (10) Pneumonia Qualifiers: Pneumonia type: due to unspecified organism Laterality: right Lung location : lower lobe of lung Qualified Code(s): J18.1 - Lobar pneumonia, unspecified organism (13) Protein calorie malnutrition Qualifiers: Protein-calorie malnutrition severity: severe Qualified Code(s): E43 - Unspecified severe protein-calorie malnutrition
[2018-05-20] MEDS: Clinimix E 5%-20% SOLUTION 2,000 ML with MVI, adult with vitamin K 10 ML, Trace Eleme... IVC SCH (17:05)
[2018-05-21] MEDS: Metoclopramide 10 MG/2 ML VIAL IVP SCH ×5 (01:02→23:46)
[2018-05-21] MEDS: Ipratropium/Albuterol Neb 3 ML IH SCH ×6 (03:44→23:48)
[2018-05-21 05:05] LABS: Basophils # 0.1 K/mcL (0.0-0.2); Basophils % 0.4 %; Eosinophils # 0.7 K/mcL (0.0-0.6); Eosinophils % 3.7 %; Hematocrit 22.1 % (37.5-50.1); Hemoglobin 7.5 g/dL (12.9-16.9); Immature Granulocytes % 3.1 % (0-4); Lymphocytes # 1.7 K/mcL (0.6-4.6); Lymphocytes % 9.3 %; Mean Corpuscular HGB Conc 33.9 g/dL (31.6-35.5); Mean Corpuscular Hemoglobin 29.5 pg (28.0-33.3); Monocytes # 1.4 K/mcL (0.0-1.3); Monocytes % 7.8 %; Neutrophils # 13.7 K/mcL (1.6-8.9); Platelet Count 708 K/mcL (140-400); Red Blood Count 2.54 M/mcL (4.19-5.50); Red Cell Distribution Width 15.4 % (11.5-14.5); Segmented Neutrophils % 75.7 %
[2018-05-21 05:17] LABS: BUN/Creatinine Ratio 69 (6-26); Blood Urea Nitrogen 25 mg/dL (8-23); Calcium 8.2 mg/dL (8.6-10.3); Carbon Dioxide 30 mEq/L (23-29); Chloride 92 mEq/L (98-107); Glucose 143 mg/dL (70-105); Osmolality,Calculated 285 (280-300); Potassium 3.4 mEq/L (3.5-5.1); Sodium 134 mEq/L (136-145); eGFR For Non-African Americans > 60 (> 60)
[2018-05-21] MEDS: *HR* Metoprolol 5 MG/5 ML VIAL IVP SCH ×5 (06:28→23:39)
[2018-05-21] MEDS: Pantoprazole 40 MG VIAL IVP SCH (06:28)
[2018-05-21] MEDS: Furosemide 40 MG/4 ML VIAL IVP SCH ×3 (08:18→17:05)
--- NOTE | 2018-05-21 08:33 | Urology Progress Note ---
Date of Encounter: 05/21/18 Time of Encounter: 08:32 - Assessment and Plan (1) Gross hematuria Current Visit: Yes Status: Acute Assessment and plan: His gross hematuria is improving. Continue Acosta catheter for now given that he still has some mild hematuria. Okay to keep CBI off. Urology will follow along. Progress Note Narrative: Doing well today. CBI has been off all day. Urine is a light pink color. Objective Initial Vital Signs Temp Pulse Resp BP Pulse Ox 97.6 F 100 16 83/48 97 04/26/18 13:10 04/26/18 13:10 04/26/18 13:10 04/26/18 13:10 04/26/18 13:10 - General physical appearance Present: well developed, well nourished, no distress - Respiratory Present: normal expansion - Genitourinary Urine Appearance: Present: Clear (Clear to light pink.) - Labs 05/21/18 04:02 05/21/18 04:02 Diabetes panel 05/21/18 Range/Units 04:02 Sodium 134 L (136-145) mEq/L Potassium 3.4 L (3.5-5.1) mEq/L Chloride 92 L (98-107) mEq/L Carbon Dioxide 30 H (23-29) mEq/L BUN 25 H (8-23) mg/dL Creatinine 0.36 L (0.70-1.30) mg/dL Glucose 143 H (70-105) mg/dL Calcium 8.2 L (8.6-10.3) mg/dL Calcium panel 05/21/18 Range/Units 04:02 Calcium 8.2 L (8.6-10.3) mg/dL Pituitary panel 05/21/18 Range/Units 04:02 Sodium 134 L (136-145) mEq/L Potassium 3.4 L (3.5-5.1) mEq/L Chloride 92 L (98-107) mEq/L Carbon Dioxide 30 H (23-29) mEq/L BUN 25 H (8-23) mg/dL Creatinine 0.36 L (0.70-1.30) mg/dL Glucose 143 H (70-105) mg/dL Calcium 8.2 L (8.6-10.3) mg/dL Adrenal panel 05/21/18 Range/Units 04:02 Sodium 134 L (136-145) mEq/L Potassium 3.4 L (3.5-5.1) mEq/L Chloride 92 L (98-107) mEq/L Carbon Dioxide 30 H (23-29) mEq/L BUN 25 H (8-23) mg/dL Creatinine 0.36 L (0.70-1.30) mg/dL Glucose 143 H (70-105) mg/dL Calcium 8.2 L (8.6-10.3) mg/dL - VTE Documentation of Mechanical Device: Intermittent pneumatic compression device Consult Discharge Plan - Plan Referrals: Breanna Ocampo, INCLUSION SPECIALIST [Advanced Practice Nurse] -
--- NOTE | 2018-05-21 09:19 | General Surgery Progress Note ---
<Leilani Donaldson E - Last Filed: 05/21/18 09:16> Date of Encounter: 05/21/18 Time of Encounter: 09:16 - Assessment and Plan (1) Umbilical hernia Current Visit: Yes Status: Acute POD #10 Exploratory laparatomy with lysis of adhesions x 45 mins, small bowel resection due to adension lysis, right colectomy with Dr. aMria Alejandra CLAUDIO NG intermediate wall suction TPN for nutritional support Supportive care and Pain control IS every hour while awake OOB to chair TID with assistance Daily wound care- packing, twice a day with extra gauze to catch drainage Surgery will continue to follow for management of NG, diet, wound care Qualifiers: Obstruction and gangrene presence: with obstruction but without gangrene Qualified Code(s): K42.0 - Umbilical hernia with obstruction, without gangrene (2) Fever, unknown origin Current Visit: Yes Status: Resolved (3) Ileus, postoperative Current Visit: Yes Status: Acute see above (4) COPD (chronic obstructive pulmonary disease) Current Visit: Yes Status: Chronic per primary team Qualifiers: COPD type: chronic bronchitis Chronic bronchitis type: unspecified Qualified Code(s): J42 - Unspecified chronic bronchitis Subjective Patient reports: feels better, no flatus, no bowel movement, other (Patient states he is feelign a bit better than yesterday. He still has not had a bowel movement and has not passed nay gas. He does state he has tiff bit sore along his abdomen. ) Objective Vital Signs - Last 8 Hours Temp Pulse Resp BP Pulse Ox 05/21/18 06:21 98.1 F 113 20 113/65 97 05/21/18 04:44 98.0 F 107 18 132/63 92 05/21/18 03:46 16 99 Intake and Output 05/20/18 05/21/18 05/21/18 23:59 07:59 15:59 Intake Total 250 / 250 Output Total 550 / 550 850 / 850 Balance -550 / -550 -600 / -600 Intake: IV Fluids 250 / 250 Intralipid 20% 250 ML @ 21 mls/ 250 / 250 hr IVPB DAILY@1700 [facility] Rx#: [id number] Output: Catheter 100 / 100 800 / 800 Gastric Drainage 450 / 450 50 / 50 R Nares 450 / 450 50 / 50 Other: Weight 72 kg Blood Glucose* 134 157 Patient Weight 05/21/18 23:59 Weight 72 kg - General physical appearance well developed, chronically ill - Respiratory normal expansion, normal respiratory effort, clear to auscultation - Cardiovascular Cardiovascular exam: Present: RRR, no murmurs/rubs/gallops - Abdomen Abdomen: Present: distended, tender, rigid Abdominal Tenderness: diffusely - Incision Incision: Present: draining, purulent - Musculoskeletal normal posture - Psychiatric oriented to time, oriented to person, oriented to place - Labs 05/21/18 04:02 05/21/18 04:02 Diabetes panel 05/21/18 Range/Units 04:02 Sodium 134 L (136-145) mEq/L Potassium 3.4 L (3.5-5.1) mEq/L Chloride 92 L (98-107) mEq/L Carbon Dioxide 30 H (23-29) mEq/L BUN 25 H (8-23) mg/dL Creatinine 0.36 L (0.70-1.30) mg/dL Glucose 143 H (70-105) mg/dL Calcium 8.2 L (8.6-10.3) mg/dL Calcium panel 05/21/18 Range/Units 04:02 Calcium 8.2 L (8.6-10.3) mg/dL Pituitary panel 05/21/18 Range/Units 04:02 Sodium 134 L (136-145) mEq/L Potassium 3.4 L (3.5-5.1) mEq/L Chloride 92 L (98-107) mEq/L Carbon Dioxide 30 H (23-29) mEq/L BUN 25 H (8-23) mg/dL Creatinine 0.36 L (0.70-1.30) mg/dL Glucose 143 H (70-105) mg/dL Calcium 8.2 L (8.6-10.3) mg/dL Adrenal panel 05/21/18 Range/Units 04:02 Sodium 134 L (136-145) mEq/L Potassium 3.4 L (3.5-5.1) mEq/L Chloride 92 L (98-107) mEq/L Carbon Dioxide 30 H (23-29) mEq/L BUN 25 H (8-23) mg/dL Creatinine 0.36 L (0.70-1.30) mg/dL Glucose 143 H (70-105) mg/dL Calcium 8.2 L (8.6-10.3) mg/dL - VTE Documentation of Mechanical Device: Intermittent pneumatic compression device Consult Discharge Plan - Plan Referrals: Breanna Ocampo, HEADING UP MACHINE OPERATOR [Advanced Practice Nurse] - <Yin Chavez - Last Filed: 05/21/18 14:25> Date of Encounter: 05/21/18 - Assessment and Plan (1) Gross hematuria Current Visit: Yes Status: Acute urology managing, crocker (2) Ileus, postoperative Current Visit: Yes Status: Acute post operative ileus is not unexpected given patients hospital course faint bowel sounds today and slightly less firm continue ngt to liws OOB to chair BID PT/OT ambulate gi/dvt prophylaxis prn pain control daily dressing changes overall despite patients wbc increasing today he overall looks better (3) Leukocytosis Current Visit: Yes Status: Acute hospitalists started antibiotics trend, overall patient appears better today Qualifiers: Leukocytosis type: unspecified Qualified Code(s): D72.829 - Elevated white blood cell count, unspecified Subjective Narrative: patient states he feels a little better today he thinks his abdominal drainage is better today he has no nausea, is still distended but thinks its a little improved he passed flatus once earlier today Objective Vital Signs - Last 8 Hours Temp Pulse Resp BP Pulse Ox 05/21/18 10:51 97.9 F 97 18 109/66 98 05/21/18 07:18 16 113/65 94 Intake and Output 05/20/18 05/21/18 05/21/18 23:59 07:59 15:59 Intake Total 250 / 250 Output Total 550 / 550 850 / 850 850 / 850 Balance -550 / -550 -600 / -600 -850 / -850 Intake: IV Fluids 250 / 250 Intralipid 20% 250 ML @ 21 mls/ 250 / 250 hr IVPB DAILY@1700 [facility] Rx#: [id number] Output: Catheter 100 / 100 800 / 800 850 / 850 Gastric Drainage 450 / 450 50 / 50 R Nares 450 / 450 50 / 50 Other: Weight 72 kg Blood Glucose* 134 157 143 Patient Weight 05/21/18 23:59 Weight 72 kg - General physical appearance well developed, no distress - Eyes normal ocular movement - ENT dry mucosa, atraumatic - Neck Neck exam: trachea midline - Respiratory normal expansion, clear to auscultation - Cardiovascular Cardiovascular exam: Present: RRR - Abdomen Abdomen: Present: bowel sounds present (faint but present), distended (softer than yesterday), tender. Absent: guarding, rebound Abdominal Tenderness: diffusely - Incision Incision: Present: draining, open (packed) - Integumentary no rash, no growths - Neurologic CN 2-12 grossly intact - Musculoskeletal normal posture - Psychiatric oriented to time, oriented to person, oriented to place, memory intact - Labs 05/21/18 04:02 05/21/18 04:02 Diabetes panel 05/21/18 Range/Units 04:02 Sodium 134 L (136-145) mEq/L Potassium 3.4 L (3.5-5.1) mEq/L Chloride 92 L (98-107) mEq/L Carbon Dioxide 30 H (23-29) mEq/L BUN 25 H (8-23) mg/dL Creatinine 0.36 L (0.70-1.30) mg/dL Glucose 143 H (70-105) mg/dL Calcium 8.2 L (8.6-10.3) mg/dL Calcium panel 05/21/18 Range/Units 04:02 Calcium 8.2 L (8.6-10.3) mg/dL Pituitary panel 05/21/18 Range/Units 04:02 Sodium 134 L (136-145) mEq/L Potassium 3.4 L (3.5-5.1) mEq/L Chloride 92 L (98-107) mEq/L Carbon Dioxide 30 H (23-29) mEq/L BUN 25 H (8-23) mg/dL Creatinine 0.36 L (0.70-1.30) mg/dL Glucose 143 H (70-105) mg/dL Calcium 8.2 L (8.6-10.3) mg/dL Adrenal panel 05/21/18 Range/Units 04:02 Sodium 134 L (136-145) mEq/L Potassium 3.4 L (3.5-5.1) mEq/L Chloride 92 L (98-107) mEq/L Carbon Dioxide 30 H (23-29) mEq/L BUN 25 H (8-23) mg/dL Creatinine 0.36 L (0.70-1.30) mg/dL Glucose 143 H (70-105) mg/dL Calcium 8.2 L (8.6-10.3) mg/dL - Attending Attestation I examined this patient and my medical decision-making was reviewed with the Resident Physician. I agree with the documented findings, disposition and treatment plan as described except to the extent set forth below.
--- NOTE | 2018-05-21 12:59 | Internal Med Progress Note ---
Hospitalist Progress Note - Encounter Date of Encounter: 05/21/18 Time of Encounter: 13:03 - Subjective Interval History: Patient is awake and alert. Still has not had any bowel movements. No chest pain or palpitations. No fevers reported overnight. No nausea or vomiting. NG tube present to low intermittent suction draining bilious fluid. - Exam Vitals: Temp Pulse Resp BP Pulse Ox 97.9 F 97 18 109/66 98 05/21/18 10:51 05/21/18 10:51 05/21/18 10:51 05/21/18 10:51 05/21/18 10:51 Exam: General: Patient is alert, no acute distress, oriented x 3 Head: atraumatic, normocephalic, ENT: NG tube present. Low intermittent suction.normal inspection, trachea midline, full ROM, no carotid bruits Chest: normal inspection, symmetric chest rise Respiratory: Good respiratory effort. Normal breath sounds. No wheezing or crackles. Cardiovascular: Regular rate and rhythm. s1 and s2 No clicks, rubs, gallops, or murmurs. No pedal edema Abdomen: Abdomen is soft, distended, tender. Surgical wound remains partially open. Bowel sounds are present Musculoskeletal: Spontaneously moving all extremities Skin: warm, dry, intact. Neuro: Alert oriented x 3 normal cranial nerves, no focal deficits Psych: Patient's affect is normal - Assessment and Plan (1) Acute respiratory failure with hypoxia Current Visit: Yes Status: Acute Assessment and Plan: Remained stable. Patient on 1- 2 L O2 supplementation. Continue intervenous tolerated. (2) Small bowel obstruction Current Visit: Yes Status: Acute Assessment and Plan: Continued postoperative ileus. No improvement in symptoms. NG tube to low intermittent suction. Leukocytosis has worsened today. We will send blood cultures and fungal cultures. Start patient again on IV antibiotics. May have underlying wound infection. We will also consult infectious disease tomorrow. (3) Gross hematuria Current Visit: Yes Status: Acute Assessment and Plan: Urology following. Hematuria appears to be improving. CBI has been held. Acosta catheter in place (4) COPD (chronic obstructive pulmonary disease) Current Visit: Yes Status: Chronic Assessment and Plan: Not in acute exacerbation. Continue bronchodilators (5) Umbilical hernia Current Visit: Yes Status: Acute Assessment and Plan: Status post incisional hernia repair. With postoperative complications (6) NUNU (acute kidney injury) Current Visit: Yes Status: Resolved (7) SIRS (systemic inflammatory response syndrome) Current Visit: Yes Status: Resolved (8) Electrolyte imbalance Current Visit: Yes Status: Acute Assessment and Plan: We will replete intravenously through TPN (9) Essential hypertension Current Visit: Yes Status: Chronic Assessment and Plan: Well-controlled (10) Pneumonia Current Visit: Yes Status: Resolved (11) Lung nodule seen on imaging study Current Visit: Yes Status: Chronic Assessment and Plan: Follow-up outpatient with pulmonology for further management (12) Tachycardia Current Visit: Yes Status: Acute Assessment and Plan: Intermittent. Stable (13) Protein calorie malnutrition Current Visit: Yes Status: Acute Assessment and Plan: Continue TPN DVT Prophylaxis: On SCDs - Time Spent with Patient Total time spent is greater than 50% in coordination of care (as documented) at patient's floor/unit and/or counseling patient: Internal Medicine: Result - Labs CBC & Chem 7: 05/21/18 04:02 05/21/18 04:02 Labs: Short CBC 05/21/18 Range/Units 04:02 WBC 18.1 H (4.3-11.1) K/mcL Hgb 7.5 L (12.9-16.9) g/dL Hct 22.1 L (37.5-50.1) % Plt Count 708 H (140-400) K/mcL Neutrophils # 13.7 H (1.6-8.9) K/mcL BMP 05/21/18 04:02 Sodium 134 L Potassium 3.4 L Chloride 92 L Carbon Dioxide 30 H BUN 25 H Creatinine 0.36 L Glucose 143 H Calcium 8.2 L - ABG Interpretation ABG results: ABG ABG pH 7.52 pH Units (7.32-7.45) H 05/17/18 09:58 ABG pCO2 39 mmHg (35-45) 05/17/18 09:58 ABG pO2 62 mmHg (85-104) L 05/17/18 09:58 ABG O2 Saturation 94 % (95-98) L 05/17/18 09:58 PT/INR, D-dimer PT 16.0 Seconds (9.4-12.1) H 05/17/18 04:00 - Impressions Impressions KUB X-Ray 05/20/18 08:00 IMPRESSION: Increasing small and large bowel distention suggests continued ileus. D/ / 05/20/2018 10:25:29 Adryan Rios MD / xander Interpreting Provider: Adryan Rios MD - VTE Documentation of Mechanical Device: Intermittent pneumatic compression device Consult Discharge Plan - Plan Referrals: Breanna Ocampo SCREEN PRINTER HELPER [Advanced Practice Nurse] - (4) COPD (chronic obstructive pulmonary disease) Qualifiers: COPD type: chronic bronchitis Chronic bronchitis type: unspecified Qualified Code(s): J42 - Unspecified chronic bronchitis (5) Umbilical hernia Qualifiers: Obstruction and gangrene presence: with obstruction but without gangrene Qualified Code(s): K42.0 - Umbilical hernia with obstruction, without gangrene (10) Pneumonia Qualifiers: Pneumonia type: due to unspecified organism Laterality: right Lung location : lower lobe of lung Qualified Code(s): J18.1 - Lobar pneumonia, unspecified organism (13) Protein calorie malnutrition Qualifiers: Protein-calorie malnutrition severity: severe Qualified Code(s): E43 - Unspecified severe protein-calorie malnutrition
[2018-05-21] MEDS ORDERED: Vancomycin 0 MG in 0.9 % Sodium Chloride 250 ML IVPB SCH (13:00)
[2018-05-21] MEDS: Cefepime HCl 2,000 MG in Water for inj. (sterile) 20 ML 20 ML IVP SCH ×2 (15:36→23:45)
[2018-05-21] MEDS: MetroNIDAZOLE 500 MG/100 ML 500 MG/100 ML BAG IVPB SCH ×2 (15:38→23:38)
[2018-05-21] MEDS: Clinimix E 5%-20% SOLUTION 2,000 ML with MVI, adult with vitamin K 10 ML, Trace Eleme... IVC SCH (16:27)
[2018-05-22] MEDS: Ipratropium/Albuterol Neb 3 ML IH SCH ×6 (03:38→23:32)
[2018-05-22] MEDS: *HR* Metoprolol 5 MG/5 ML VIAL IVP SCH ×4 (04:42→23:53)
[2018-05-22] MEDS: Metoclopramide 10 MG/2 ML VIAL IVP SCH ×4 (04:42→23:53)
[2018-05-22] MEDS: Pantoprazole 40 MG VIAL IVP SCH (04:42)
[2018-05-22 06:21] LABS: Basophils # 0.1 K/mcL (0.0-0.2); Basophils % 0.5 %; Eosinophils # 0.7 K/mcL (0.0-0.6); Eosinophils % 4.1 %; Hematocrit 24.3 % (37.5-50.1); Hemoglobin 8.3 g/dL (12.9-16.9); Lymphocytes # 1.1 K/mcL (0.6-4.6); Lymphocytes % 6.7 %; Mean Corpuscular HGB Conc 34.2 g/dL (31.6-35.5); Mean Corpuscular Hemoglobin 30.4 pg (28.0-33.3); Mean Platelet Volume 9.7 fL (9.4-12.4); Monocytes # 1.4 K/mcL (0.0-1.3); Monocytes % 8.4 %; Neutrophils # 12.7 K/mcL (1.6-8.9); Platelet Count 713 K/mcL (140-400); Red Blood Count 2.73 M/mcL (4.19-5.50); Red Cell Distribution Width 15.2 % (11.5-14.5); Segmented Neutrophils % 78.3 %
[2018-05-22 06:44] LABS: BUN/Creatinine Ratio 60 (6-26); Blood Urea Nitrogen 24 mg/dL (8-23); Calcium 8.2 mg/dL (8.6-10.3); Carbon Dioxide 29 mEq/L (23-29); Chloride 95 mEq/L (98-107); Glucose 138 mg/dL (70-105); Osmolality,Calculated 280 (280-300); Potassium 3.4 mEq/L (3.5-5.1); Sodium 132 mEq/L (136-145); eGFR For Non-African Americans > 60 (> 60)
--- NOTE | 2018-05-22 07:51 | Internal Med Progress Note ---
Hospitalist Progress Note - Encounter Date of Encounter: 05/22/18 Time of Encounter: 12:00 - Subjective Interval History: Patient with history of COPD, GERD, hyperlipidemia, hypertension was initially admitted for incarcerated incisional hernia and small bowel obstruction along with acute kidney injury. Has had extensive and prolonged stay here due to multiple complications. Patient underwent initial surgery with reported recurrent incisional hernia repair mesh on 04/28. His postoperative course was complicated with significant postop ileus and then small bowel obstruction for which she underwent surgery again on 05/10 with exploratory laparotomy with lysis of adhesions and small bowel resection along with right colectomy. Patient developed respiratory distress and acute hypoxic respiratory failure and was transferred to the ICU. He did not require intubation. He was diagnosed with pneumonia and bilateral pleural effusions. He was treated with IV antibiotics. He also underwent left-sided thoracentesis. Patient was then transferred back to the floor. He continues to have postoperative ileus and has not had a bowel movement yet. Surgery is following patient is on TPN. Patient has persistent leukocytosis and was started on antibiotics again yesterday. Possible wound infection. CT scan of the chest done earlier during this hospital stay showed a spiculated nodule concerning for malignancy. Patient also developed hematuria and DVT prophylaxis with heparin was held. Urology is following and patient underwent continuous bladder irrigation which was stopped 48 hours back. Patient remains on TPN. Surgery following. Patient has NG tube to low intermittent suction. Patient may need placement to LTAC when he is medically ready for discharge. Patient also has had persistent tachycardia. Likely due to anemia and acute illness. His thyroid profile was within normal limits. This morning patient is doing much better and has had bowel movements. He still feels bloated and has abdominal distention. No fever reported overnight. Remains on 1.5 L nasal cannula. No shortness of breath or chest pain at this time. Dysuria is improving. - Exam Vitals: Temp Pulse Resp BP Pulse Ox 98.2 F 98 16 122/62 96 05/22/18 07:19 05/22/18 07:19 05/22/18 07:26 05/22/18 07:19 05/22/18 07:26 Exam: General: Patient is alert, no acute distress, oriented x 3 Head: atraumatic, normocephalic, Eye: normal appearance, PERRL, no scleral icterus, no conjunctival injection Neck: normal inspection, trachea midline, full ROM, no carotid bruits Chest: normal inspection, symmetric chest rise Respiratory: Decreased breath sounds at both bases Cardiovascular: Regular rate and rhythm. s1 and s2 No clicks, rubs, gallops, or murmurs. No pedal edema Abdomen: Abdomen is distended. Bowel sounds are present. Musculoskeletal: Spontaneously moving all extremities Skin: warm, dry, intact. Neuro: Alert oriented x 3 normal cranial nerves, no focal deficits Psych: Patient's affect is normal - Assessment and Plan (1) Small bowel obstruction Current Visit: Yes Status: Acute Assessment and Plan: Status post exploratory laparotomy, lysis of adhesions, small bowel resection and right colectomy. Postop day 12. Finally had a bowel movement today. Surgery following. X-ray of the abdomen shows distended colon without any significant small bowel gas. Continue supportive care. On TPN. Nasogastric tube to low intermittent suction. Moderate risk for complications. Discussed discharge planning with case management. Consider long-term acute care. (2) Acute respiratory failure with hypoxia Current Visit: Yes Status: Acute Assessment and Plan: Improved. On 1.5 L nasal cannula (3) Gross hematuria Current Visit: Yes Status: Acute Assessment and Plan: Improving. Acosta catheter in place. Avoiding heparin products. Urology following. Hemoglobin levels remain stable. (4) COPD (chronic obstructive pulmonary disease) Current Visit: Yes Status: Chronic Assessment and Plan: Continue bronchodilators as needed. (5) Umbilical hernia Current Visit: Yes Status: Acute Assessment and Plan: Status post incisional hernia repair with mesh (6) NUNU (acute kidney injury) Current Visit: Yes Status: Resolved (7) SIRS (systemic inflammatory response syndrome) Current Visit: Yes Status: Acute Assessment and Plan: Leukocytosis persists but improving. Patient started on broad-spectrum antibiotics yesterday. Cultures are pending. Infectious disease consulted for recommendations. We will follow their recommendations. Patient does have reactive thrombocytopenia. (8) Electrolyte imbalance Current Visit: Yes Status: Acute Assessment and Plan: We will replace intravenously with TPN (9) Essential hypertension Current Visit: Yes Status: Chronic Assessment and Plan: Well-controlled (10) Pneumonia Current Visit: Yes Status: Resolved (11) Lung nodule seen on imaging study Current Visit: Yes Status: Chronic Assessment and Plan: Follow-up outpatient for further evaluation. Concern for malignancy (12) Tachycardia Current Visit: Yes Status: Acute Assessment and Plan: Improved today. We will continue to monitor with telemetry. (13) Protein calorie malnutrition Current Visit: Yes Status: Acute Assessment and Plan: Continue TPN DVT Prophylaxis: EPCDs. Avoiding medical anticoagulation due to episodes of hematuria - Time Spent with Patient Total time spent is greater than 50% in coordination of care (as documented) at patient's floor/unit and/or counseling patient: Plan of Care Discussed with: showroom consultant Internal Medicine: Result - Labs CBC & Chem 7: 05/22/18 06:09 05/22/18 06:09 Labs: Short CBC 05/22/18 Range/Units 06:09 WBC 16.2 H (4.3-11.1) K/mcL Hgb 8.3 L (12.9-16.9) g/dL Hct 24.3 L (37.5-50.1) % Plt Count 713 H (140-400) K/mcL Neutrophils # 12.7 H (1.6-8.9) K/mcL BMP 05/22/18 06:09 Sodium 132 L Potassium 3.4 L Chloride 95 L Carbon Dioxide 29 BUN 24 H Creatinine 0.40 L Glucose 138 H Calcium 8.2 L - ABG Interpretation ABG results: ABG ABG pH 7.52 pH Units (7.32-7.45) H 05/17/18 09:58 ABG pCO2 39 mmHg (35-45) 05/17/18 09:58 ABG pO2 62 mmHg (85-104) L 05/17/18 09:58 ABG O2 Saturation 94 % (95-98) L 05/17/18 09:58 PT/INR, D-dimer PT 16.0 Seconds (9.4-12.1) H 05/17/18 04:00 - VTE Documentation of Mechanical Device: Intermittent pneumatic compression device Consult Discharge Plan - Plan Referrals: Virgilio Sanchez MD [Primary Care Provider] - (Patient is from [facility]) Breanna Ocampo CNP [Advanced Practice Nurse] - (4) COPD (chronic obstructive pulmonary disease) Qualifiers: COPD type: chronic bronchitis Chronic bronchitis type: unspecified Qualified Code(s): J42 - Unspecified chronic bronchitis (5) Umbilical hernia Qualifiers: Obstruction and gangrene presence: with obstruction but without gangrene Qualified Code(s): K42.0 - Umbilical hernia with obstruction, without gangrene (10) Pneumonia Qualifiers: Pneumonia type: due to unspecified organism Laterality: right Lung location : lower lobe of lung Qualified Code(s): J18.1 - Lobar pneumonia, unspecified organism (13) Protein calorie malnutrition Qualifiers: Protein-calorie malnutrition severity: severe Qualified Code(s): E43 - Unspecified severe protein-calorie malnutrition
--- NOTE | 2018-05-22 08:35 | General Surgery Progress Note ---
Date of Encounter: 05/22/18 Time of Encounter: 08:33 - Assessment and Plan (1) Umbilical hernia Current Visit: Yes Status: Acute POD #11 Exploratory laparatomy with lysis of adhesions x 45 mins, small bowel resection due to adension lysis, right colectomy with Dr. Maria Alejandra CLAUDIO NG intermediate wall suction TPN for nutritional support Supportive care and Pain control IS every hour while awake OOB to chair TID with assistance Daily wound care- packing, twice a day with extra gauze to catch drainage Surgery will continue to follow for management of NG, diet, wound care Awaiting further recommendation as per attending after review of acute abdominal series films Qualifiers: Obstruction and gangrene presence: with obstruction but without gangrene Qualified Code(s): K42.0 - Umbilical hernia with obstruction, without gangrene (2) Fever, unknown origin Current Visit: Yes Status: Resolved (3) Ileus, postoperative Current Visit: Yes Status: Acute see above (4) COPD (chronic obstructive pulmonary disease) Current Visit: Yes Status: Chronic per primary team Qualifiers: COPD type: chronic bronchitis Chronic bronchitis type: unspecified Qualified Code(s): J42 - Unspecified chronic bronchitis Subjective Patient reports: feels better, still having pain, flatus (Patient states that he is feeling quite a bit better today. He had a bowel movement today and continues to pass some gas. He feels less bloated. And less sore.), bowel movement Objective Vital Signs - Last 8 Hours Temp Pulse Resp BP Pulse Ox 05/22/18 07:26 16 96 05/22/18 07:19 98.2 F 98 15 122/62 97 05/22/18 03:38 16 95 05/22/18 03:36 98.0 F 76 15 135/61 95 Intake and Output 05/21/18 05/22/18 05/22/18 23:59 07:59 15:59 Intake Total 370 / 370 Output Total 1800 / 1800 Balance -1430 / -1430 Intake: IV Fluids 370 / 370 Maxipime 2,000 MG In Water for 20 / 20 inj. (sterile) 20 ML @ 300 mls/ hr IVP Q8HR [facility] Rx#:[id number] Flagyl Premix 500 MG/100 ML 500 100 / 100 mg In 100 ml @ 100 mls/hr IVPB Q8HR [facility] Rx#:[id number] Vancocin 1,000 MG In 0.9 % 250 / 250 Sodium Chloride 250 ML @ 166. 667 mls/hr IVPB Q12H [facility] Rx#: [id number] Output: Catheter 1800 / 1800 Other: Stool Size Large Stool Consistency liquid Stool Color Brown # Bowel Movement Diapers 1 Blood Glucose* 128 141 - General physical appearance well developed, chronically ill - Respiratory normal expansion, normal respiratory effort, clear to auscultation - Cardiovascular Cardiovascular exam: Present: RRR, no murmurs/rubs/gallops - Abdomen Abdomen: Present: bowel sounds present (Faint bowel sounds present), distended ( Less so than yesterday), tender Abdominal Tenderness: diffusely - Incision Incision: Present: draining, purulent - Integumentary no rash, no growths, no abnormal pigmentation - Musculoskeletal normal posture - Psychiatric oriented to time, oriented to person, oriented to place - Labs 05/22/18 06:09 05/22/18 06:09 Diabetes panel 05/22/18 Range/Units 06:09 Sodium 132 L (136-145) mEq/L Potassium 3.4 L (3.5-5.1) mEq/L Chloride 95 L (98-107) mEq/L Carbon Dioxide 29 (23-29) mEq/L BUN 24 H (8-23) mg/dL Creatinine 0.40 L (0.70-1.30) mg/dL Glucose 138 H (70-105) mg/dL Calcium 8.2 L (8.6-10.3) mg/dL Calcium panel 05/22/18 Range/Units 06:09 Calcium 8.2 L (8.6-10.3) mg/dL Pituitary panel 05/22/18 Range/Units 06:09 Sodium 132 L (136-145) mEq/L Potassium 3.4 L (3.5-5.1) mEq/L Chloride 95 L (98-107) mEq/L Carbon Dioxide 29 (23-29) mEq/L BUN 24 H (8-23) mg/dL Creatinine 0.40 L (0.70-1.30) mg/dL Glucose 138 H (70-105) mg/dL Calcium 8.2 L (8.6-10.3) mg/dL Adrenal panel 05/22/18 Range/Units 06:09 Sodium 132 L (136-145) mEq/L Potassium 3.4 L (3.5-5.1) mEq/L Chloride 95 L (98-107) mEq/L Carbon Dioxide 29 (23-29) mEq/L BUN 24 H (8-23) mg/dL Creatinine 0.40 L (0.70-1.30) mg/dL Glucose 138 H (70-105) mg/dL Calcium 8.2 L (8.6-10.3) mg/dL - VTE Documentation of Mechanical Device: Intermittent pneumatic compression device Consult Discharge Plan - Plan Referrals: Virgilio Sanchez MD [Primary Care Provider] - (Patient is from [facility]) Breanna Ocampo CNP [Advanced Practice Nurse] -
[2018-05-22] MEDS: Cefepime HCl 2,000 MG in Water for inj. (sterile) 20 ML 20 ML IVP SCH (09:06)
[2018-05-22] MEDS: MetroNIDAZOLE 500 MG/100 ML 500 MG/100 ML BAG IVPB SCH (09:11)
[2018-05-22] MEDS: Furosemide 40 MG/4 ML VIAL IVP SCH ×3 (09:11→17:35)
[2018-05-22] MEDS ORDERED: Aminoglycoside Consult 1 EACH MC ONE (10:27)
--- NOTE | 2018-05-22 14:29 | Infectious Disease Consult ---
Date of Encounter: 05/22/18 Time of Encounter: 14:15 Assessment and Plan (1) Sepsis Status: Acute Assessment and plan: Severe sepsis on admission: two SIRS criteria plus hypotension, NUNU, and lactic acidosis. Improved. NUNU and lactic acidosis resolved. Blood pressure stable. The patient continues to have persistent leukocytosis and tachycardia despite surgical intervention for SBO. Etiology unclear, but no obvious infection noted. Could be due to persistent post-op ileus, but concern for infectious etiology as well. The patient has been afebrile. Blood pressure has been stable. Blood cultures drawn 04/26/18 x2, 05/02/18 x 2, 05/06/18 x 2, 05/09/18 x 2 are all negative. Additional blood cultures drawn 05/21/18 are pending x 2 sets. Check LFTs, amylase, and lipase. Get CT of the chest, abdomen, and pelvis with IV and PO/NG contrast in the AM. Get swab cultures of the pus coming from the umbilicus. He does have a PICC line, but clinically does not appear infected. Discontinue antibiotics and observe for now. If the patient becomes febrile, get blood cultures x 3 sets (1 from PICC and two peripheral) and re-start broad-spectrum antibiotics. Qualifiers: Sepsis type: sepsis due to unspecified organism Qualified Code(s): A41.9 - Sepsis, unspecified organism (2) Small bowel obstruction Status: Acute Assessment and plan: Likely secondary to umbilical hernia, which was reduced in the ER 04/26/18. Continued to have findings consistent with SBO/ileus. Status post robotic incisional hernia repair 04/28/[address] Bess. Again continued to have findings concerning for SBO/ileus and possible perforation on imaging. Status post exploratory lap with RYDER, SBR, and right colectomy 05/10/[address] Bess. Operative note reviewed. Enterotomies x 2 due to extensive adhesions. (3) Ileus, postoperative Status: Acute Assessment and plan: Prolonged post-op ileus noted on serial abdominal x-rays. The patient did have bowel sounds and BM x 2 today[address] NGT remains in place. Further management per the surgery team. (4) Incarcerated incisional hernia Status: Acute Assessment and plan: Status post reduction in the ER 04/26/[address] Bess. Status post robotic incisional hernia repair with mesh 04/28/18. (5) NUNU (acute kidney injury) Status: Resolved Assessment and plan: Likely secondary to sepsis and poor PO intake prior to admission. Resolved. (6) Lactic acidosis Status: Resolved Assessment and plan: Likely secondary to sepsis. Resolved. (7) Hyponatremia Status: Resolved (8) Lung nodule Status: Acute Assessment and plan: CT of the chest showed spiculated nodule in the right upper lobe highly suspicious for malignancy. Hem/Onc consulted with plans to PET/biopsy as an outpatient. (9) Acute anemia Status: Acute Assessment and plan: Hgb down to 8 this morning. No acute bleeding noted on exam. Further workup and management per the primary team. (10) Acute respiratory failure with hypoxia Status: Acute Assessment and plan: Likely secondary to large left pleural effusion. Resolved. (11) Pleural effusion Status: Acute Assessment and plan: CXR 05/16/18 showed persistent bilateral pleural effusions with pulmonary vascular congestion. Status post left thoracentesis with 1000ml transudative fluid removed. Culture negative. Cytology negative for malignancy. Repeat CXR 05/18/18 showed worsening bibasilar atelectasis vs. PNA (likely atelectasis based on clinical picture) and increased right pleural effusion. Recommend pulmonology to evaluate for increased right pleural effusion. (12) Pneumonia Status: Resolved Assessment and plan: CT of the chest 05/05 showed consolidative changes and atelectatic changes mostly in the right lower lobe consistent with PNA. Received 6 days of Rocephin and Flagyl. Qualifiers: Pneumonia type: due to unspecified organism Laterality: right Lung location: lower lobe of lung Qualified Code(s): J18.1 - Lobar pneumonia, unspecified organism (13) Hematuria Status: Acute Assessment and plan: Etiology unclear: trauma vs. malignancy vs. other. CT scan showed findings of bladder wall thickening. Urology consulted and recommendations noted. Appears resolved. Qualifiers: Hematuria type: unspecified type Qualified Code(s): R31.9 - Hematuria, unspecified (14) COPD (chronic obstructive pulmonary disease) Status: Chronic Qualifiers: COPD type: chronic bronchitis Chronic bronchitis type: unspecified Qualified Code(s): J42 - Unspecified chronic bronchitis Infectious Disease HPI - Data of Consult Patient: new to practice Consult date: 05/22/18 Requesting Physician: Nata Odom MD Primary Care Provider: Virgilio Sanchez MD Family Provider: JaneConversion Provider - Consult Narrative Reason for consult: Leukocytosis History of present illness: Mr. Freed is a 67 year old male with a past medical history of COPD, GERD, hyperlipidemia, and hypertension. The patient was admitted to the hospital April 26 for small bowel objection. We are consulted May 22 for further recommendations for persistent leukocytosis. Briefly, the patient's a 67-year-old male with a past medical history as stated above. The patient presented to the emergency department on the day of admission with complaints of abdominal pain, nausea, and vomiting. Upon arrival to the ER, the patient was tachycardic and hypotensive and had leukocytosis with neutrophilic predominance and thrombocytosis. He also lactic acidosis with an acute kidney injury. Blood cultures were obtained 2 sets that were negative. His CT the abdomen and pelvis that showed a high-grade small bowel obstruction with the transition point at the umbilical hernia. Gen. surgery was consulted and saw the patient the emergency department were able to reduce the hernia in the ER. He also had a chest x-ray that was negative. Started empirically on IV Flagyl and Levaquin and admitted to the hospital for further evaluation. After admission, the patient continued to have findings consistent with a small bowel obstruction. He was taken to the operating room on April 28 and underwent a robotic incisional hernia repair with mesh. Postoperatively, the patient did well, but had findings consistent with ileus. He had persistent leukocytosis. On May 02, he had a PICC placed and was started on TPN. On May 05, his right blood cell count went up to 22,000 he spiked a temperature of 101.2. He had a CT the abdomen and pelvis and chest that showed findings consistent with a small bowel obstruction and a ventral hernia with fluid consistent with possible strangulation as well as 2 areas of bladder wall thickening, right lower lobe pneumonia, and possible malignancy in the right upper lobe. He was also noted to have the left adrenal nodule surgery for metastatic disease. Blood cultures were obtained 2 sets and were negative. Hem/Onc was consulted and recommended follow-up with PET scan and biopsy as an outpatient. Again the patient continued to have findings consistent with ileus versus small bowel obstruction. He initially refused an NG tube, but eventually agreed and had a large amount of bilious contents returned. On May 09, he had a CT of the chest that showed worsening bilateral pleural effusions and consolidation concerning for pulmonary edema versus pneumonia. He also had a CT of the abdomen and pelvis that showed diffuse small bowel distention consistent with mechanical small bowel objection and possible free fluid and air in the pelvis concerning for perforation. He was taken back to the operating room on May 10 for expiratory laparotomy with lysis of adhesions, small bowel resection, and right colectomy. The operative note indicates that there are 2 enterotomies intra-op. Since then, the patient has had intermittent hematuria. Urology has been consulted and a crocker catheter was placed to assist with bladder irrigation. His white blood cell count has remained elevated. On May 16, he had a chest x-ray that showed persistent bilateral pleural effusions. He developed acute respiratory distress and was transferred to the intensive care unit where he underwent a left thoracentesis and had 1000 mL's transiently of fluid drained. Culture and pathology were negative. He also had a CT of the abdomen and pelvis that showed 2 fluid collections in the lower abdomen concerning for seroma versus abscess. The patient continues to have multiple abdominal x-rays that are consistent with ileus. Since admission, the patient has received multiple courses of antibiotics including Levaquin, Rocephin, Flagyl, fluconazole, and is currently on cefepime and vancomycin. We have been asked to evaluate and make further recommendations. Exam today, the patient states that overall he feels okay. He denies any fevers or chills or rigors. Denies any headache. She reports neck stiffness that he thinks is from the hospital bed. He denies any congestion, earache, or sore throat. He reports some pain to the inside of his nose from the NG tube. He denies any chest pain, but reports a chronic cough that is productive of white sputum. He denies any shortness of breath. He denies any nausea or vomiting. He is currently nothing by mouth. He reports abdominal distention, but no real abdominal pain. He does state that he had 2 bowel movements today. He has a Crocker catheter that remains patent draining clear urine. He denies any pain in his joints or extremities or back. He denies any oral thrush or new skin lesions. The patient lives at home alone. 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 He quit smoking 10 months ago and was smoking about a pack a day before that. He denies illicit drug use. He reports daily use of alcohol and states he drink 4 beers per day. He does report an allergy to PCN, but he is unsure the nature of the allergy and states he last took it when he was a child. CC: Nata Odom MD Past Med Surg Social Fam HX - Past Medical History Attestation: Yes The following information was validated with the patient. Source: patient, old records reviewed, nursing notes reviewed Medical history: COPD, GERD, hyperlipidemia, hypertension Additional medical history: polio Psychiatric history: no psych history - Past Surgical History Surgical History: appendectomy (open- perforated appendicitis) Additional surgical history: right hip repair - Social History Smoking Status: Former smoker Smokeless Tobacco Status: No Alcohol use: heavy (admits to 3-4 beers/day) Drug use: none Occupational status: retired Current living situation: Home - Independent Activity Level: Independent ambulation Recent Out of Country Travel Within the Last 8 Weeks: No Exposure or Possible Exposure to Illness During Travel: No - Family History Mother History Unknown: Yes Hx Family Cardiac Disorders: Yes (sister) Hx Family Respiratory Disorders: Yes (asthma) Hx Family Cancer: No Hx Family GI Disorders: No Hx Family Endocrine Disorder: No Hx Family Neuromuscular Disorders: No Hx Family Neurologic Disorders: No Hx Family HEENT Disorders: No Hx Family Autoimmune Disorders: No Infectious Disease-CN:Meds Ipratropium/Albuterol Sulfate [Combivent Respimat Inhal [place]] 1 puff IH QID 10/26 [History] Loratadine [Allergy Relief] 10 mg PO DAILY 09/09/17 [History] Metoprolol Succinate 25 mg PO DAILY 09/09/17 [History] Montelukast [Singulair] 10 mg PO DAILY 09/09/17 [History] Ranitidine HCl [Acid Plane Tableman] 150 mg PO BID 09/09/17 [History] Simvastatin [Zocor] 40 mg PO HS 09/09/17 [History] 3 Allergy/AdvReac Type Severity Reaction Status Date / Time Penicillins Allergy See Verified 04/10/18 12:50 Comments All systems: reviewed and no additional remarkable complaints except as stated Exam - Constitutional Vitals: Temp Pulse Resp BP Pulse Ox 97.9 F 94 18 125/71 97 05/22/18 11:09 05/22/18 11:09 05/22/18 11:33 05/22/18 11:09 05/22/18 11:33 General appearance: average body habitus, cooperative, no acute distress - Head Head exam: Present: atraumatic, normal inspection, normocephalic - Eye Eye exam: Present: EOMI, normal appearance, PERRL Pupils: Present: normal accommodation - ENT ENT exam: Present: mucous membranes moist - Neck Neck exam: Present: normal inspection. Absent: meningismus, tenderness - Respiratory Respiratory exam: Present: CTAB. Absent: rales, respiratory distress, rhonchi, wheezes - Cardiovascular Cardiovascular exam: Present: RRR, +S1, +S2 - GI/Abdominal GI/Abdominal exam: Present: distended, normal bowel sounds, soft, tenderness ( generalized) Additional comments: NG tube noted to the right nare to LIWS with small amount of light yellow gastric contents noted. Abdominal dressing with moderate amount of serous drainage noted. Midline abdominal incision with jefry intact. Two areas of packing noted. Purulent drainage noted from the umbilicus. No surrounding erythema or warmth. Crocker catheter noted to be draining clear yellow urine. - Extremities Exam Extremities exam: Present: normal inspection. Absent: joint swelling, pedal edema, tenderness - Back Exam Back exam: Present: normal inspection. Absent: CVA tenderness (L), CVA tenderness (R) - Neurological Exam Neurological exam: Present: alert, oriented X3, no focal deficits - Psychiatric Psychiatric exam: Present: normal affect, normal mood - Skin Skin exam: Present: dry, intact, normal color, warm - Additional findings Additional findings: PICC line noted to the RUE with transparent dressing C/D/I. No erythema, warmth , or drainage noted. Infectious Disease CN: Results - Labs CBC & Chem 7: 05/22/18 06:09 05/22/18 06:09 Cultures: Cultures 05/21/18 13:35 Blood Culture - Preliminary Central Venous Catheter Culture is incubating and being continuously monitored for growth. Final report to follow. 05/21/18 13:40 Blood Culture - Preliminary Peripheral Venipuncture Culture is incubating and being continuously monitored for growth. Final report to follow. 05/17/18 11:25 Body Fluid Culture - Final Pleural Fluid 05/09/18 13:50 Blood Culture - Final Peripheral Venipuncture No growth. Final report. 05/09/18 13:55 Blood Culture - Final Peripheral Venipuncture No growth. Final report. 05/06/18 12:23 Blood Culture - Final Peripheral Venipuncture No growth. Final report. 05/06/18 12:28 Blood Culture - Final Peripheral Venipuncture No growth. Final report. 05/02/18 09:50 Blood Culture - Final Peripheral Venipuncture No growth. Final report. 05/02/18 09:50 Blood Culture - Final Peripheral Venipuncture No growth. Final report. 04/26/18 21:30 Legionella Antigen - Final Urine,Clean Catch Serology: Serology 05/17/18 05/17/18 05/17/18 Range/Units 11:25 11:25 11:25 Urine Color (Yellow) Urine Clarity (Clear) Urine pH (5.0-8.0) pH Units Ur Specific Benson (1.010-1.025) Urine Protein (Neg-Trace) mg/dL Urine Glucose (UA) (Normal) mg/dL Urine Ketones (Negative) mg/dL Urine Blood (Negative) Urine Nitrite (Negative) Urine Bilirubin (Negative) Urine Urobilinogen (Normal) mg/dL Ur Leukocyte Esterase (Negative) Urine Microscopic RBC (0-3) per hpf Urine Microscopic WBC (0-3) per hpf Ur Squamous Epith Cells (None-Few) per lpf Ur Renal Epithelial Cell (None-Few) per hpf Urine Bacteria (None-Few) per hpf Hyaline Casts (None-Few) per lpf Granular Casts (None Seen) per lpf Urine Mucus (Few) Urine Yeast (None Seen) per hpf Ur Culture Indicated? (NO) Urine Creatinine mg/dL Urine Sodium mEq/L Pleural Fluid Volume 800.0 mL Pleural Appearance Clear (Clear) Pleural pH 8.00 (No Ref Range) pH Units Pleural RBC < 0.002 (0.000 - 0.002) M/mcL Pleural Tot Nuc Cell 47 (0-1000) TNC/mcL Pleural Neutrophils 61.0 % Pleural Lymphocytes % 27.0 % Pleural Monocytes % 6.0 % Pleural Other Cells % 6.0 % Pleural Total Protein (No Ref Range) g/dL Pleural LDH (No Ref Range) Units/L Pleural Glucose 146 (No Ref Range) mg/dL Pleural Amylase < 10 (No Ref Range) Units/L Pleural Cholesterol CARE WORKER Nasal Screen MRSA (PCR) (Negative) Chlamy pneumoniae PCR (Not Detect) Adenovirus (PCR) (Not Detect) B. pertussis DNA (PCR) (Not Detect) B.parapertussis DNA PCR (Not Detect) Coronavirus OC43 (PCR) (Not Detect) Coronavirus HKU1 (PCR) (Not Detect) Coronavirus 229E (PCR) (Not Detect) Coronavirus NL63 (PCR) (Not Detect) Human Metapneumovir PCR (Not Detect) Influenza A (H1) PCR (Not Detect) Influ A (H1N1/09) PCR (Not Detect) Influenza A (H3) PCR (Not Detect) Influenza A Untype (PCR) (Not Detect) Influenza Type B (PCR) (Not Detect) M.pneumoniae DNA (PCR) (Not Detect) Parainfluenza 1 (PCR) (Not Detect) Parainfluenza 2 (PCR) (Not Detect) Parainfluenza 3 (PCR) (Not Detect) Parainfluenza 4 (PCR) (Not Detect) RSV (PCR) (Not Detect) Entero/Rhino (PCR) (Not Detect) 05/17/18 05/15/18 05/15/18 Range/Units 11:25 22:48 21:33 Urine Color Red A (Yellow) Urine Clarity Turbid A (Clear) Urine pH 6.0 (5.0-8.0) pH Units Ur Specific Benson 1.015 (1.010-1.025) Urine Protein 100 H (Neg-Trace) mg/dL Urine Glucose (UA) Normal (Normal) mg/dL Urine Ketones Trace H (Negative) mg/dL Urine Blood Large H (Negative) Urine Nitrite Negative (Negative) Urine Bilirubin Moderate H (Negative) Urine Urobilinogen Normal (Normal) mg/dL Ur Leukocyte Esterase Small H (Negative) Urine Microscopic RBC TNTC H (0-3) per hpf Urine Microscopic WBC 30-50 H (0-3) per hpf Ur Squamous Epith Cells Many H (None-Few) per lpf Ur Renal Epithelial Cell (None-Few) per hpf Urine Bacteria None Seen (None-Few) per hpf Hyaline Casts None Seen (None-Few) per lpf Granular Casts (None Seen) per lpf Urine Mucus (Few) Urine Yeast (None Seen) per hpf Ur Culture Indicated? NO. A (NO) Urine Creatinine mg/dL Urine Sodium mEq/L Pleural Fluid Volume mL Pleural Appearance (Clear) Pleural pH (No Ref Range) pH Units Pleural RBC (0.000 - 0.002) M/mcL Pleural Tot Nuc Cell (0-1000) TNC/mcL Pleural Neutrophils % Pleural Lymphocytes % % Pleural Monocytes % % Pleural Other Cells % % Pleural Total Protein < 3.0 (No Ref Range) g/dL Pleural LDH 63 (No Ref Range) Units/L Pleural Glucose (No Ref Range) mg/dL Pleural Amylase (No Ref Range) Units/L Pleural Cholesterol Nasal Screen MRSA (PCR) Negative (Negative) Chlamy pneumoniae PCR (Not Detect) Adenovirus (PCR) (Not Detect) B. pertussis DNA (PCR) (Not Detect) B.parapertussis DNA PCR (Not Detect) Coronavirus OC43 (PCR) (Not Detect) Coronavirus HKU1 (PCR) (Not Detect) Coronavirus 229E (PCR) (Not Detect) Coronavirus NL63 (PCR) (Not Detect) Human Metapneumovir PCR (Not Detect) Influenza A (H1) PCR (Not Detect) Influ A (H1N1/09) PCR (Not Detect) Influenza A (H3) PCR (Not Detect) Influenza A Untype (PCR) (Not Detect) Influenza Type B (PCR) (Not Detect) M.pneumoniae DNA (PCR) (Not Detect) Parainfluenza 1 (PCR) (Not Detect) Parainfluenza 2 (PCR) (Not Detect) Parainfluenza 3 (PCR) (Not Detect) Parainfluenza 4 (PCR) (Not Detect) RSV (PCR) (Not Detect) Entero/Rhino (PCR) (Not Detect) 05/02/18 04/27/18 04/26/18 Range/Units 18:00 04:22 21:30 Urine Color Dark Yellow (Yellow) Urine Clarity Clear (Clear) Urine pH 7.0 (5.0-8.0) pH Units Ur Specific Benson 1.025 (1.010-1.025) Urine Protein 30 H (Neg-Trace) mg/dL Urine Glucose (UA) Normal (Normal) mg/dL Urine Ketones 15 H (Negative) mg/dL Urine Blood Negative (Negative) Urine Nitrite Positive A (Negative) Urine Bilirubin Small H (Negative) Urine Urobilinogen Normal (Normal) mg/dL Ur Leukocyte Esterase Trace H (Negative) Urine Microscopic RBC 0-3 (0-3) per hpf Urine Microscopic WBC 0-3 (0-3) per hpf Ur Squamous Epith Cells Many H (None-Few) per lpf Ur Renal Epithelial Cell (None-Few) per hpf Urine Bacteria None Seen (None-Few) per hpf Hyaline Casts None Seen (None-Few) per lpf Granular Casts (None Seen) per lpf Urine Mucus (Few) Urine Yeast (None Seen) per hpf Ur Culture Indicated? NO. A (NO) Urine Creatinine 137 mg/dL Urine Sodium 23.7 mEq/L Pleural Fluid Volume mL Pleural Appearance (Clear) Pleural pH (No Ref Range) pH Units Pleural RBC (0.000 - 0.002) M/mcL Pleural Tot Nuc Cell (0-1000) TNC/mcL Pleural Neutrophils % Pleural Lymphocytes % % Pleural Monocytes % % Pleural Other Cells % % Pleural Total Protein (No Ref Range) g/dL Pleural LDH (No Ref Range) Units/L Pleural Glucose (No Ref Range) mg/dL Pleural Amylase (No Ref Range) Units/L Pleural Cholesterol Nasal Screen MRSA (PCR) (Negative) Chlamy pneumoniae PCR Not Detected (Not Detect) Adenovirus (PCR) Not Detected (Not Detect) B. pertussis DNA (PCR) Not Detected (Not Detect) B.parapertussis DNA PCR Not Detected (Not Detect) Coronavirus OC43 (PCR) Not Detected (Not Detect) Coronavirus HKU1 (PCR) Not Detected (Not Detect) Coronavirus 229E (PCR) Not Detected (Not Detect) Coronavirus NL63 (PCR) Not Detected (Not Detect) Human Metapneumovir PCR Not Detected (Not Detect) Influenza A (H1) PCR Not Detected (Not Detect) Influ A (H1N1/09) PCR Not Detected (Not Detect) Influenza A (H3) PCR Not Detected (Not Detect) Influenza A Untype (PCR) Not Detected (Not Detect) Influenza Type B (PCR) Not Detected (Not Detect) M.pneumoniae DNA (PCR) Not Detected (Not Detect) Parainfluenza 1 (PCR) Not Detected (Not Detect) Parainfluenza 2 (PCR) Not Detected (Not Detect) Parainfluenza 3 (PCR) Not Detected (Not Detect) Parainfluenza 4 (PCR) Not Detected (Not Detect) RSV (PCR) Not Detected (Not Detect) Entero/Rhino (PCR) Not Detected (Not Detect) 07/18/18 Range/Units 21:30 Urine Color Dark Yellow (Yellow) Urine Clarity Turbid A (Clear) Urine pH 5.5 (5.0-8.0) pH Units Ur Specific Benson 1.022 (1.010-1.025) Urine Protein 100 H (Neg-Trace) mg/dL Urine Glucose (UA) Normal (Normal) mg/dL Urine Ketones Trace H (Negative) mg/dL Urine Blood Small H (Negative) Urine Nitrite Negative (Negative) Urine Bilirubin Moderate H (Negative) Urine Urobilinogen Normal (Normal) mg/dL Ur Leukocyte Esterase Trace H (Negative) Urine Microscopic RBC 0-3 (0-3) per hpf Urine Microscopic WBC 5-15 H (0-3) per hpf Ur Squamous Epith Cells Many H (None-Few) per lpf Ur Renal Epithelial Cell Few (None-Few) per hpf Urine Bacteria Moderate H (None-Few) per hpf Hyaline Casts Few (None-Few) per lpf Granular Casts Few H (None Seen) per lpf Urine Mucus Many H (Few) Urine Yeast Many H (None Seen) per hpf Ur Culture Indicated? NO (NO) Urine Creatinine mg/dL Urine Sodium mEq/L Pleural Fluid Volume mL Pleural Appearance (Clear) Pleural pH (No Ref Range) pH Units Pleural RBC (0.000 - 0.002) M/mcL Pleural Tot Nuc Cell (0-1000) TNC/mcL Pleural Neutrophils % Pleural Lymphocytes % % Pleural Monocytes % % Pleural Other Cells % % Pleural Total Protein (No Ref Range) g/dL Pleural LDH (No Ref Range) Units/L Pleural Glucose (No Ref Range) mg/dL Pleural Amylase (No Ref Range) Units/L Pleural Cholesterol Nasal Screen MRSA (PCR) (Negative) Chlamy pneumoniae PCR (Not Detect) Adenovirus (PCR) (Not Detect) B. pertussis DNA (PCR) (Not Detect) B.parapertussis DNA PCR (Not Detect) Coronavirus OC43 (PCR) (Not Detect) Coronavirus HKU1 (PCR) (Not Detect) Coronavirus 229E (PCR) (Not Detect) Coronavirus NL63 (PCR) (Not Detect) Human Metapneumovir PCR (Not Detect) Influenza A (H1) PCR (Not Detect) Influ A (H1N1/09) PCR (Not Detect) Influenza A (H3) PCR (Not Detect) Influenza A Untype (PCR) (Not Detect) Influenza Type B (PCR) (Not Detect) M.pneumoniae DNA (PCR) (Not Detect) Parainfluenza 1 (PCR) (Not Detect) Parainfluenza 2 (PCR) (Not Detect) Parainfluenza 3 (PCR) (Not Detect) Parainfluenza 4 (PCR) (Not Detect) RSV (PCR) (Not Detect) Entero/Rhino (PCR) (Not Detect) - VTE Documentation of Mechanical Device: Intermittent pneumatic compression device Consult Discharge Plan - Plan Referrals: Virgilio Sanchez MD [Primary Care Provider] - (Patient is from [facility]) Breanna Ocampo CNP [Advanced Practice Nurse] - - Attending Attestation I examined this patient and my medical decision-making was reviewed with the Resident Physician. I agree with the documented findings, disposition and treatment plan as described except to the extent set forth below. This is an addendum to original report dictated by nurse practitioner. Please refer to CARE WORKER's note for full detail. Patient is 68-year-old gentleman with past medical history mentioned below including penicillin allergy presented to [facility] on April 26 with abdominal pain nausea vomiting and severe sepsis like picture. Patient was found to have small bowel obstruction due to an umbilical hernia. Patient had an NG tube placed with no improvement. Patient on 04/28 underwent a robotic assist surgery with a mesh placement. 05/02 chest x-ray of the abdomen still revealed ileus and patient had a PICC line placement and start on TPN 05/05 patient spiked a fever with worsening leukocytosis. CT chest and abdomen revealed strangulation and right lower lobe pneumonia. There was also possible nodule concerning for malignancy in the right upper lobe. Patient also had an ileus. imaging revealed possible mechanical obstruction with perforation. 05/10 patient underwent exploratory laparotomy with small bowel resection colectomy and 2 enterotomies that were fixed. Post operative patient had gross hematuria and it was probably attributed to questionable metastases to the bladder wall. 05/17 large pleural effusion left lung status post. Bette Centesis with transudative effusion of 1 L. Cytology was negative for malignancy. 05/16 CT abdomen reveals fluid collection intra-abdominally 1 was 3.45.5 and the other was 2.05.4 cm Levaquin 04/26, 05/05-05/09 Flagyl 04/26-05/17; 05/21-now Rocephin 05/12-05/17 Fluconazole 05/15-05/17 Cefepime 05/09-05/13; 05/21-now Vanc Recommendations: At this point not sure was causing persistent leukocytosis. Could be infectious versus inflammatory versus malignancy. Infectious etiology would possible intra-abdominal abscesses noted on the CT scan. And there was questionable pus coming out of the wound which also could be a culprit. That is why I would do a swab culture of the pus coming out of the wound, I will stop all antibiotics and observe, and I will get a CT abdomen and pelvis with oral and IV contrast. If patient shows any signs of worsening sepsis, I will get blood cultures 3 and start empiric antibiotics. Also check lipase and amylase and LFTs.
[2018-05-22] MEDS ORDERED: Isovue-370 500 ML INFUS..BTL IV ONE (15:26)
[2018-05-22] MEDS ORDERED: Clinimix E 5%-20% SOLUTION 2,000 ML with MVI, adult with vitamin K 10 ML, Trace Eleme... IVC SCH (17:00)
[2018-05-22] MEDS: Clinimix E 5%-20% SOLUTION 2,000 ML with MVI, adult with vitamin K 10 ML, Trace Eleme... IVC SCH (17:30)
[2018-05-23 00:51] LABS: Basophils # 0.1 K/mcL (0.0-0.2); Basophils % 0.4 %; Eosinophils # 0.7 K/mcL (0.0-0.6); Hematocrit 24.1 % (37.5-50.1); Hemoglobin 8.1 g/dL (12.9-16.9); Immature Granulocytes % 2.1 % (0-4); Lymphocytes % 6.1 %; Mean Corpuscular HGB Conc 33.6 g/dL (31.6-35.5); Mean Corpuscular Hemoglobin 29.8 pg (28.0-33.3); Mean Corpuscular Volume 88.6 fL (83.0-100.0); Mean Platelet Volume 9.9 fL (9.4-12.4); Monocytes # 1.3 K/mcL (0.0-1.3); Monocytes % 7.6 %; Neutrophils # 13.6 K/mcL (1.6-8.9); Platelet Count 697 K/mcL (140-400); Red Blood Count 2.72 M/mcL (4.19-5.50); Red Cell Distribution Width 15.1 % (11.5-14.5); Segmented Neutrophils % 79.8 %
[2018-05-23 01:16] LABS: Albumin/Globulin Ratio 0.8 (1.1-2.2); Bilirubin,Direct 0.2 mg/dL (0.0-0.2); Bilirubin,Indirect 0.3 mg/dL (0.0-1.2); Bilirubin,Total 0.5 mg/dL (0.3-1.0); Globulin 3.7 g/dL (2.4-3.5); Total Protein 6.7 g/dL (6.4-8.9)
[2018-05-23 01:17] LABS: BUN/Creatinine Ratio 48 (6-26); Blood Urea Nitrogen 22 mg/dL (8-23); Calcium 8.1 mg/dL (8.6-10.3); Carbon Dioxide 29 mEq/L (23-29); Chloride 91 mEq/L (98-107); Glucose 127 mg/dL (70-105); Osmolality,Calculated 279 (280-300); Phosphorous 4.3 mg/dL (2.7-4.5); Potassium 3.3 mEq/L (3.5-5.1); Sodium 132 mEq/L (136-145); eGFR For Non-African Americans > 60 (> 60)
[2018-05-23] MEDS: Ipratropium/Albuterol Neb 3 ML IH SCH ×6 (03:28→23:23)
[2018-05-23] MEDS: Metoclopramide 10 MG/2 ML VIAL IVP SCH ×4 (05:11→23:25)
[2018-05-23] MEDS: Pantoprazole 40 MG VIAL IVP SCH (05:11)
[2018-05-23] MEDS: *HR* Metoprolol 5 MG/5 ML VIAL IVP SCH ×4 (05:12→23:25)
--- NOTE | 2018-05-23 08:52 | Internal Med Progress Note ---
Hospitalist Progress Note - Encounter Date of Encounter: 05/23/18 Time of Encounter: 08:30 - Subjective Interval History: No acute events overnight - Exam Vitals: Temp Pulse Resp BP Pulse Ox 98.7 F 95 18 109/52 99 05/23/18 07:36 05/23/18 07:36 05/23/18 07:36 05/23/18 07:36 05/23/18 07:36 Exam: General: Patient is alert, no acute distress, oriented x 3 Head: atraumatic, normocephalic, Eye: normal appearance, PERRL, no scleral icterus, no conjunctival injection Neck: normal inspection, trachea midline, full ROM, no carotid bruits Chest: normal inspection, symmetric chest rise Respiratory: Decreased breath sounds at both bases Cardiovascular: Regular rate and rhythm. s1 and s2 No clicks, rubs, gallops, or murmurs. No pedal edema Abdomen: Abdomen is distended. Bowel sounds are present. Musculoskeletal: Spontaneously moving all extremities Skin: warm, dry, intact. Neuro: Alert oriented x 3 normal cranial nerves, no focal deficits Psych: Patient's affect is normal - Assessment and Plan (1) Small bowel obstruction Current Visit: Yes Status: Acute Assessment and Plan: Status post exploratory laparotomy, lysis of adhesions, small bowel resection and right colectomy. Finally had a bowel movement in last 24hrs. Surgery following. X-ray of the abdomen shows distended colon without any significant small bowel gas. Continue supportive care. On TPN. Nasogastric tube to low intermittent suction. Moderate risk for complications. Discussed discharge planning with case management. Plan for long-term acute care. (2) SIRS (systemic inflammatory response syndrome) Current Visit: Yes Status: Acute Assessment and Plan: Leukocytosis persists but improving. Infectious disease consulted for recommendations. We will follow their recommendations. Patient does have reactive thrombocytopenia. Seen by ID who recommend holding antibiotics for now as leukocytosis may be reactive. Blood cultures on 05/[address] chest, abdomen and pelvis with IV and po contrast in am per ID recs in light of leukocytosis. Check LFTs, amylase ,lipase. Obtain swab of umbilical pus (3) Acute respiratory failure with hypoxia Current Visit: Yes Status: Acute Assessment and Plan: Improved. On 1.5 L nasal cannula (4) Umbilical hernia Current Visit: Yes Status: Acute Assessment and Plan: Status post incisional hernia repair with mesh (5) COPD (chronic obstructive pulmonary disease) Current Visit: Yes Status: Chronic Assessment and Plan: Continue bronchodilators as needed. (6) NUNU (acute kidney injury) Current Visit: Yes Status: Resolved Assessment and Plan: resolved (7) Electrolyte imbalance Current Visit: Yes Status: Acute Assessment and Plan: We will replace intravenously with TPN (8) Protein calorie malnutrition Current Visit: Yes Status: Acute Assessment and Plan: Continue TPN (9) Essential hypertension Current Visit: Yes Status: Chronic Assessment and Plan: Well-controlled (10) Pneumonia Current Visit: Yes Status: Resolved Assessment and Plan: Completed antibiotic course. (11) Lung nodule seen on imaging study Current Visit: Yes Status: Chronic Assessment and Plan: Follow-up outpatient for further evaluation. Concern for malignancy (12) Tachycardia Current Visit: Yes Status: Acute Assessment and Plan: Improved today. We will continue to monitor with telemetry. (13) Gross hematuria Current Visit: Yes Status: Acute Assessment and Plan: Improving. Acosta catheter in place. Avoiding heparin products. Urology following. Hemoglobin levels remain stable. DVT Prophylaxis: EPCDs. Avoiding medical anticoagulation due to episodes of hematuria - Time Spent with Patient Total time spent is greater than 50% in coordination of care (as documented) at patient's floor/unit and/or counseling patient: Internal Medicine: Result - Labs CBC & Chem 7: 05/23/18 00:37 05/23/18 00:37 Labs: Short CBC 05/23/18 Range/Units 00:37 WBC 17.1 H (4.3-11.1) K/mcL Hgb 8.1 L (12.9-16.9) g/dL Hct 24.1 L (37.5-50.1) % Plt Count 697 H (140-400) K/mcL Neutrophils # 13.6 H (1.6-8.9) K/mcL BMP 05/23/18 00:37 Sodium 132 L Potassium 3.3 L Chloride 91 L Carbon Dioxide 29 BUN 22 Creatinine 0.46 L Glucose 127 H Calcium 8.1 L Liver Function 05/23/18 Range/Units 00:37 Total Bilirubin 0.5 (0.3-1.0) mg/dL Direct Bilirubin 0.2 (0.0-0.2) mg/dL AST 15 (13-39) Units/L ALT 16 (7-52) Units/L Alkaline Phosphatase 229 H (34-104) Units/L Albumin 3.0 L (3.5-5.7) g/dL - ABG Interpretation ABG results: ABG ABG pH 7.52 pH Units (7.32-7.45) H 05/17/18 09:58 ABG pCO2 39 mmHg (35-45) 05/17/18 09:58 ABG pO2 62 mmHg (85-104) L 05/17/18 09:58 ABG O2 Saturation 94 % (95-98) L 05/17/18 09:58 PT/INR, D-dimer PT 16.0 Seconds (9.4-12.1) H 05/17/18 04:00 - Impressions Impressions Chest/Abdomen X-ray 05/22/18 09:24 IMPRESSION: 1. Right pleural effusion. 2. NG tube in place with tip in the region of the pylorus. 3. Gas and contrast seen in the colon. The colon appears distended. No significant small bowel gas identified. D/ / 05/22/2018 13:46:11 Hubert Burns MD / dominic Interpreting Provider: Hubert Burns MD Abdomen/Pelvis CT 05/22/18 18:00 IMPRESSION: Right lower quadrant fluid collection is smaller. The other fluid collection appears to have resolved. Decrease in pleural effusions. Stable left adrenal nodule. D/ / Irving Cottrell MD / Irving Cottrell MD Interpreting Provider: Irving Cottrell MD - VTE Documentation of Mechanical Device: Intermittent pneumatic compression device Consult Discharge Plan - Plan Referrals: Virgilio Sanchez MD [Primary Care Provider] - (Patient is from [facility]) Breanna Ocampo, [employer] [Advanced Practice Nurse] - (4) Umbilical hernia Qualifiers: Obstruction and gangrene presence: with obstruction but without gangrene Qualified Code(s): K42.0 - Umbilical hernia with obstruction, without gangrene (5) COPD (chronic obstructive pulmonary disease) Qualifiers: COPD type: chronic bronchitis Chronic bronchitis type: unspecified Qualified Code(s): J42 - Unspecified chronic bronchitis (8) Protein calorie malnutrition Qualifiers: Protein-calorie malnutrition severity: severe Qualified Code(s): E43 - Unspecified severe protein-calorie malnutrition (10) Pneumonia Qualifiers: Pneumonia type: due to unspecified organism Laterality: right Lung location : lower lobe of lung Qualified Code(s): J18.1 - Lobar pneumonia, unspecified organism
[2018-05-23] MEDS: Furosemide 40 MG/4 ML VIAL IVP SCH ×3 (09:53→17:03)
--- NOTE | 2018-05-23 10:53 | General Surgery Progress Note ---
Date of Encounter: 05/23/18 Time of Encounter: 10:50 - Assessment and Plan (1) Umbilical hernia Current Visit: Yes Status: Acute POD #12 Exploratory laparatomy with lysis of adhesions x 45 mins, small bowel resection due to adension lysis, right colectomy with Dr. Bess NPO NG intermediate wall suction TPN for nutritional support Supportive care and Pain control IS every hour while awake OOB to chair TID with assistance Daily wound care- packing, twice a day with extra gauze to catch drainage Surgery will continue to follow for management of NG, diet, wound care Awaiting further recommendation as per attending after review of acute abdominal series films Qualifiers: Obstruction and gangrene presence: with obstruction but without gangrene Qualified Code(s): K42.0 - Umbilical hernia with obstruction, without gangrene (2) Fever, unknown origin Current Visit: Yes Status: Resolved (3) Ileus, postoperative Current Visit: Yes Status: Acute see above (4) COPD (chronic obstructive pulmonary disease) Current Visit: Yes Status: Chronic per primary team Qualifiers: COPD type: chronic bronchitis Chronic bronchitis type: unspecified Qualified Code(s): J42 - Unspecified chronic bronchitis Subjective Patient reports: still having pain, pain is less, flatus, no bowel movement, other (Patient states he is feeling tired and weak today. He states that he is having less pain and bloating in his stomach. ) Objective Vital Signs - Last 8 Hours Temp Pulse Resp BP Pulse Ox 05/23/18 07:36 98.7 F 95 18 109/52 99 05/23/18 04:06 98.2 F 103 16 135/69 96 05/23/18 03:30 14 95 Intake and Output 05/22/18 05/23/18 05/23/18 23:59 07:59 15:59 Output Total 800 / 800 Balance -800 / -800 Output: Urine 800 / 800 Other: Meal NPO Weight 72.6 kg Blood Glucose* 149 Patient Weight 05/23/18 23:59 Weight 72.6 kg - General physical appearance well developed, cachectic, chronically ill - Respiratory normal expansion, normal respiratory effort, clear to auscultation - Cardiovascular Cardiovascular exam: Present: RRR, no murmurs/rubs/gallops - Abdomen Abdomen: Present: bowel sounds present, soft, tender Abdominal Tenderness: diffusely - Incision Incision: Present: draining, purulent - Musculoskeletal normal posture - Psychiatric oriented to time, oriented to person, oriented to place - Labs 05/23/18 00:37 05/23/18 00:37 Diabetes panel 05/23/18 05/23/18 Range/Units 00:37 00:37 Sodium 132 L (136-145) mEq/L Potassium 3.3 L (3.5-5.1) mEq/L Chloride 91 L (98-107) mEq/L Carbon Dioxide 29 (23-29) mEq/L BUN 22 (8-23) mg/dL Creatinine 0.46 L (0.70-1.30) mg/dL Glucose 127 H (70-105) mg/dL Calcium 8.1 L (8.6-10.3) mg/dL AST 15 (13-39) Units/L ALT 16 (7-52) Units/L Alkaline Phosphatase 229 H (34-104) Units/L Albumin 3.0 L (3.5-5.7) g/dL Calcium panel 05/23/18 05/23/18 Range/Units 00:37 00:37 Calcium 8.1 L (8.6-10.3) mg/dL Phosphorus 4.3 (2.7-4.5) mg/dL Albumin 3.0 L (3.5-5.7) g/dL Pituitary panel 05/23/18 Range/Units 00:37 Sodium 132 L (136-145) mEq/L Potassium 3.3 L (3.5-5.1) mEq/L Chloride 91 L (98-107) mEq/L Carbon Dioxide 29 (23-29) mEq/L BUN 22 (8-23) mg/dL Creatinine 0.46 L (0.70-1.30) mg/dL Glucose 127 H (70-105) mg/dL Calcium 8.1 L (8.6-10.3) mg/dL Adrenal panel 05/23/18 05/23/18 Range/Units 00:37 00:37 Sodium 132 L (136-145) mEq/L Potassium 3.3 L (3.5-5.1) mEq/L Chloride 91 L (98-107) mEq/L Carbon Dioxide 29 (23-29) mEq/L BUN 22 (8-23) mg/dL Creatinine 0.46 L (0.70-1.30) mg/dL Glucose 127 H (70-105) mg/dL Calcium 8.1 L (8.6-10.3) mg/dL Total Bilirubin 0.5 (0.3-1.0) mg/dL AST 15 (13-39) Units/L ALT 16 (7-52) Units/L Alkaline Phosphatase 229 H (34-104) Units/L Albumin 3.0 L (3.5-5.7) g/dL - VTE Documentation of Mechanical Device: Intermittent pneumatic compression device Consult Discharge Plan - Plan Referrals: Virgilio Sanchez MD [Primary Care Provider] - (Patient is from [facility]) Breanna Ocampo CNP [Advanced Practice Nurse] -
--- NOTE | 2018-05-23 10:53 | Infectious Disease Progress No ---
Date of Encounter: 05/23/18 Time of Encounter: 10:51 - Assessment and Plan (1) Sepsis Current Visit: Yes Status: Acute Severe sepsis on admission: two SIRS criteria plus hypotension, NUNU, and lactic acidosis. Improved. NUNU and lactic acidosis resolved. Blood pressure stable. The patient continues to have persistent leukocytosis and tachycardia despite surgical intervention for SBO. Leukocytosis stable at 17 this morning. Etiology unclear, but no obvious infection noted. Could be due to persistent post-op ileus, but concern for infectious etiology as well. The patient has been afebrile. Blood pressure has been stable. Blood cultures drawn 04/26/18 x2, 05/02/18 x 2, 05/06/18 x 2, 05/09/18 x 2 are all negative. Additional blood cultures drawn 05/21/18 are NGTD x 2 sets. Check LFTs, amylase, and lipase. --> alk phos elevated, but otherwise normal. Get CT of the chest, abdomen, and pelvis with IV and PO/NG contrast in the AM.-- > improvement/resolution of previously-noted fluid collections noted. Get swab cultures of the pus coming from the umbilicus.--> Pending. He does have a PICC line, but clinically does not appear infected. Continue to observe off antibiotics. If the patient becomes febrile, get blood cultures x 3 sets (1 from PICC and two peripheral) and re-start broad-spectrum antibiotics. Qualifiers: Sepsis type: sepsis due to unspecified organism Qualified Code(s): A41.9 - Sepsis, unspecified organism (2) Small bowel obstruction Current Visit: Yes Status: Acute Likely secondary to umbilical hernia, which was reduced in the ER 04/26/18. Continued to have findings consistent with SBO/ileus. Status post robotic incisional hernia repair 04/28/[address] Bess. Again continued to have findings concerning for SBO/ileus and possible perforation on imaging. Status post exploratory lap with RYDER, SBR, and right colectomy 05/10/[address] Bess. Operative note reviewed. Enterotomies x 2 due to extensive adhesions. CT of the abdomen and pelvis 05/22/18 shows normal small bowel and colon. (3) Ileus, postoperative Current Visit: Yes Status: Acute Prolonged post-op ileus noted on serial abdominal x-rays. The patient did have bowel sounds and BM x 2 05/22/18, but none since. NGT remains in place. Hypoactive bowel sounds noted. Further management per the surgery team. (4) Incarcerated incisional hernia Current Visit: Yes Status: Acute Status post reduction in the ER 04/26/[address] Bess. Status post robotic incisional hernia repair with mesh 04/28/18. (5) NUNU (acute kidney injury) Current Visit: Yes Status: Resolved Likely secondary to sepsis and poor PO intake prior to admission. Resolved. (6) Lactic acidosis Current Visit: Yes Status: Resolved Likely secondary to sepsis. Resolved. (7) Hyponatremia Current Visit: No Status: Acute Improved. (8) Lung nodule Current Visit: Yes Status: Acute CT of the chest showed spiculated nodule in the right upper lobe highly suspicious for malignancy. Hem/Onc consulted with plans to PET/biopsy as an outpatient. (9) Acute anemia Current Visit: Yes Status: Acute Hgb down to 8 this morning. No acute bleeding noted on exam. Further workup and management per the primary team. (10) Acute respiratory failure with hypoxia Current Visit: Yes Status: Acute Likely secondary to large left pleural effusion. Resolved. (11) Pleural effusion Current Visit: Yes Status: Acute CXR 05/16/18 showed persistent bilateral pleural effusions with pulmonary vascular congestion. Status post left thoracentesis with 1000ml transudative fluid removed. Culture negative. Cytology negative for malignancy. Repeat CXR 05/18/18 showed worsening bibasilar atelectasis vs. PNA (likely atelectasis based on clinical picture) and increased right pleural effusion. Recommend pulmonology to evaluate for increased right pleural effusion. (12) Pneumonia Current Visit: Yes Status: Resolved CT of the chest 05/05 showed consolidative changes and atelectatic changes mostly in the right lower lobe consistent with PNA. Received 6 days of Rocephin and Flagyl. Qualifiers: Pneumonia type: due to unspecified organism Laterality: right Lung location: lower lobe of lung Qualified Code(s): J18.1 - Lobar pneumonia, unspecified organism (13) Hematuria Current Visit: Yes Status: Acute Etiology unclear: trauma vs. malignancy vs. other. CT scan showed findings of bladder wall thickening. Urology consulted and recommendations noted. Appears resolved. Qualifiers: Hematuria type: unspecified type Qualified Code(s): R31.9 - Hematuria, unspecified (14) COPD (chronic obstructive pulmonary disease) Current Visit: Yes Status: Chronic Qualifiers: COPD type: chronic bronchitis Chronic bronchitis type: unspecified Qualified Code(s): J42 - Unspecified chronic bronchitis - Subjective Interval history: Patient seen and examined. No acute events noted overnight. Patient states overall he does not feel very well, but denies any new acute complaints. Denies fevers or chills or rigors. States he feels generally weak. Denies chest pain or shortness of breath. Reports a chronic cough productive of white sputum. Denies nausea or vomiting. Reports abdominal distention persists. Denies flatness. Denies bowel movement since yesterday. Acosta catheter remains patent. Denies oral thrush or new skin lesions. Infect Dis PN-Objective Data - Labs CBC & Chem 7: 05/24/18 04:44 05/24/18 04:44 Labs: Laboratory Results - last 24 hr 05/21/18 05/22/18 05/22/18 23:41 07:18 11:46 WBC RBC Hgb Hct MCV MCH MCHC RDW Plt Count MPV Immature Gran % Seg Neutrophils % Lymphocytes % Monocytes % Eosinophils % Basophils % Neutrophils # Lymphocytes # Monocytes # Eosinophils # Basophils # Sodium Potassium Chloride Carbon Dioxide BUN Creatinine Est GFR ( Amer) Est GFR (Non-Af Amer) BUN/Creatinine Ratio Glucose POC Glucose 128 H 141 H 122 H Calculated Osmolality Calcium Phosphorus Magnesium Total Bilirubin Direct Bilirubin Indirect Bilirubin AST ALT Alkaline Phosphatase Serum Total Protein Albumin Globulin Albumin/Globulin Ratio Amylase Lipase Vancomycin Trough 05/23/18 05/23/18 05/23/18 00:37 00:37 00:37 WBC 17.1 H RBC 2.72 L Hgb 8.1 L Hct 24.1 L MCV 88.6 MCH 29.8 MCHC 33.6 RDW 15.1 H Plt Count 697 H MPV 9.9 Immature Gran % 2.1 Seg Neutrophils % 79.8 Lymphocytes % 6.1 Monocytes % 7.6 Eosinophils % 4.0 Basophils % 0.4 Neutrophils # 13.6 H Lymphocytes # 1.0 Monocytes # 1.3 Eosinophils # 0.7 H Basophils # 0.1 Sodium 132 L Potassium 3.3 L Chloride 91 L Carbon Dioxide 29 BUN 22 Creatinine 0.46 L Est GFR ( Amer) > 60 Est GFR (Non-Af Amer) > 60 BUN/Creatinine Ratio 48 H Glucose 127 H POC Glucose Calculated Osmolality 279 L Calcium 8.1 L Phosphorus 4.3 Magnesium 2.0 Total Bilirubin Direct Bilirubin Indirect Bilirubin AST ALT Alkaline Phosphatase Serum Total Protein Albumin Globulin Albumin/Globulin Ratio Amylase Lipase Vancomycin Trough 11 H 05/23/18 00:37 WBC RBC Hgb Hct MCV MCH MCHC RDW Plt Count MPV Immature Gran % Seg Neutrophils % Lymphocytes % Monocytes % Eosinophils % Basophils % Neutrophils # Lymphocytes # Monocytes # Eosinophils # Basophils # Sodium Potassium Chloride Carbon Dioxide BUN Creatinine Est GFR ( Amer) Est GFR (Non-Af Amer) BUN/Creatinine Ratio Glucose POC Glucose Calculated Osmolality Calcium Phosphorus Magnesium Total Bilirubin 0.5 Direct Bilirubin 0.2 Indirect Bilirubin 0.3 AST 15 ALT 16 Alkaline Phosphatase 229 H Serum Total Protein 6.7 Albumin 3.0 L Globulin 3.7 H Albumin/Globulin Ratio 0.8 L Amylase 31 Lipase 21 Vancomycin Trough Cultures: Cultures 05/21/18 13:35 Blood Culture - Preliminary Central Venous Catheter Culture is incubating and being continuously monitored for growth. Final report to follow. 05/21/18 13:40 Blood Culture - Preliminary Peripheral Venipuncture Culture is incubating and being continuously monitored for growth. Final report to follow. 05/17/18 11:25 Body Fluid Culture - Final Pleural Fluid 05/09/18 13:50 Blood Culture - Final Peripheral Venipuncture No growth. Final report. 05/09/18 13:55 Blood Culture - Final Peripheral Venipuncture No growth. Final report. 05/06/18 12:23 Blood Culture - Final Peripheral Venipuncture No growth. Final report. 05/06/18 12:28 Blood Culture - Final Peripheral Venipuncture No growth. Final report. 05/02/18 09:50 Blood Culture - Final Peripheral Venipuncture No growth. Final report. 05/02/18 09:50 Blood Culture - Final Peripheral Venipuncture No growth. Final report. 04/26/18 21:30 Legionella Antigen - Final Urine,Clean Catch Serology 05/17/18 05/17/18 05/17/18 Range/Units 11:25 11:25 11:25 Urine Color (Yellow) Urine Clarity (Clear) Urine pH (5.0-8.0) pH Units Ur Specific [place] (1.010-1.025) Urine Protein (Neg-Trace) mg/dL Urine Glucose (UA) (Normal) mg/dL Urine Ketones (Negative) mg/dL Urine Blood (Negative) Urine Nitrite (Negative) Urine Bilirubin (Negative) Urine Urobilinogen (Normal) mg/dL Ur Leukocyte Esterase (Negative) Urine Microscopic RBC (0-3) per hpf Urine Microscopic WBC (0-3) per hpf Ur Squamous Epith Cells (None-Few) per lpf Ur Renal Epithelial Cell (None-Few) per hpf Urine Bacteria (None-Few) per hpf Hyaline Casts (None-Few) per lpf Granular Casts (None Seen) per lpf Urine Mucus (Few) Urine Yeast (None Seen) per hpf Ur Culture Indicated? (NO) Urine Creatinine mg/dL Urine Sodium mEq/L Pleural Fluid Volume 800.0 mL Pleural Appearance Clear (Clear) Pleural pH 8.00 (No Ref Range) pH Units Pleural RBC < 0.002 (0.000 - 0.002) M/mcL Pleural Tot Nuc Cell 47 (0-1000) TNC/mcL Pleural Neutrophils 61.0 % Pleural Lymphocytes % 27.0 % Pleural Monocytes % 6.0 % Pleural Other Cells % 6.0 % Pleural Total Protein (No Ref Range) g/dL Pleural LDH (No Ref Range) Units/L Pleural Glucose 146 (No Ref Range) mg/dL Pleural Amylase < 10 (No Ref Range) Units/L Pleural Cholesterol [employer] Nasal Screen MRSA (PCR) (Negative) Chlamy pneumoniae PCR (Not Detect) Adenovirus (PCR) (Not Detect) B. pertussis DNA (PCR) (Not Detect) B.parapertussis DNA PCR (Not Detect) Coronavirus OC43 (PCR) (Not Detect) Coronavirus HKU1 (PCR) (Not Detect) Coronavirus 229E (PCR) (Not Detect) Coronavirus NL63 (PCR) (Not Detect) Human Metapneumovir PCR (Not Detect) Influenza A (H1) PCR (Not Detect) Influ A (H1N1/09) PCR (Not Detect) Influenza A (H3) PCR (Not Detect) Influenza A Untype (PCR) (Not Detect) Influenza Type B (PCR) (Not Detect) M.pneumoniae DNA (PCR) (Not Detect) Parainfluenza 1 (PCR) (Not Detect) Parainfluenza 2 (PCR) (Not Detect) Parainfluenza 3 (PCR) (Not Detect) Parainfluenza 4 (PCR) (Not Detect) RSV (PCR) (Not Detect) Entero/Rhino (PCR) (Not Detect) 05/17/18 05/15/18 05/15/18 Range/Units 11:25 22:48 21:33 Urine Color Red A (Yellow) Urine Clarity Turbid A (Clear) Urine pH 6.0 (5.0-8.0) pH Units Ur Specific [place] 1.015 (1.010-1.025) Urine Protein 100 H (Neg-Trace) mg/dL Urine Glucose (UA) Normal (Normal) mg/dL Urine Ketones Trace H (Negative) mg/dL Urine Blood Large H (Negative) Urine Nitrite Negative (Negative) Urine Bilirubin Moderate H (Negative) Urine Urobilinogen Normal (Normal) mg/dL Ur Leukocyte Esterase Small H (Negative) Urine Microscopic RBC TNTC H (0-3) per hpf Urine Microscopic WBC 30-50 H (0-3) per hpf Ur Squamous Epith Cells Many H (None-Few) per lpf Ur Renal Epithelial Cell (None-Few) per hpf Urine Bacteria None Seen (None-Few) per hpf Hyaline Casts None Seen (None-Few) per lpf Granular Casts (None Seen) per lpf Urine Mucus (Few) Urine Yeast (None Seen) per hpf Ur Culture Indicated? NO. A (NO) Urine Creatinine mg/dL Urine Sodium mEq/L Pleural Fluid Volume mL Pleural Appearance (Clear) Pleural pH (No Ref Range) pH Units Pleural RBC (0.000 - 0.002) M/mcL Pleural Tot Nuc Cell (0-1000) TNC/mcL Pleural Neutrophils % Pleural Lymphocytes % % Pleural Monocytes % % Pleural Other Cells % % Pleural Total Protein < 3.0 (No Ref Range) g/dL Pleural LDH 63 (No Ref Range) Units/L Pleural Glucose (No Ref Range) mg/dL Pleural Amylase (No Ref Range) Units/L Pleural Cholesterol Nasal Screen MRSA (PCR) Negative (Negative) Chlamy pneumoniae PCR (Not Detect) Adenovirus (PCR) (Not Detect) B. pertussis DNA (PCR) (Not Detect) B.parapertussis DNA PCR (Not Detect) Coronavirus OC43 (PCR) (Not Detect) Coronavirus HKU1 (PCR) (Not Detect) Coronavirus 229E (PCR) (Not Detect) Coronavirus NL63 (PCR) (Not Detect) Human Metapneumovir PCR (Not Detect) Influenza A (H1) PCR (Not Detect) Influ A (H1N1/09) PCR (Not Detect) Influenza A (H3) PCR (Not Detect) Influenza A Untype (PCR) (Not Detect) Influenza Type B (PCR) (Not Detect) M.pneumoniae DNA (PCR) (Not Detect) Parainfluenza 1 (PCR) (Not Detect) Parainfluenza 2 (PCR) (Not Detect) Parainfluenza 3 (PCR) (Not Detect) Parainfluenza 4 (PCR) (Not Detect) RSV (PCR) (Not Detect) Entero/Rhino (PCR) (Not Detect) 05/02/18 04/27/18 04/26/18 Range/Units 18:00 04:22 21:30 Urine Color Dark Yellow (Yellow) Urine Clarity Clear (Clear) Urine pH 7.0 (5.0-8.0) pH Units Ur Specific [place] 1.025 (1.010-1.025) Urine Protein 30 H (Neg-Trace) mg/dL Urine Glucose (UA) Normal (Normal) mg/dL Urine Ketones 15 H (Negative) mg/dL Urine Blood Negative (Negative) Urine Nitrite Positive A (Negative) Urine Bilirubin Small H (Negative) Urine Urobilinogen Normal (Normal) mg/dL Ur Leukocyte Esterase Trace H (Negative) Urine Microscopic RBC 0-3 (0-3) per hpf Urine Microscopic WBC 0-3 (0-3) per hpf Ur Squamous Epith Cells Many H (None-Few) per lpf Ur Renal Epithelial Cell (None-Few) per hpf Urine Bacteria None Seen (None-Few) per hpf Hyaline Casts None Seen (None-Few) per lpf Granular Casts (None Seen) per lpf Urine Mucus (Few) Urine Yeast (None Seen) per hpf Ur Culture Indicated? NO. A (NO) Urine Creatinine 137 mg/dL Urine Sodium 23.7 mEq/L Pleural Fluid Volume mL Pleural Appearance (Clear) Pleural pH (No Ref Range) pH Units Pleural RBC (0.000 - 0.002) M/mcL Pleural Tot Nuc Cell (0-1000) TNC/mcL Pleural Neutrophils % Pleural Lymphocytes % % Pleural Monocytes % % Pleural Other Cells % % Pleural Total Protein (No Ref Range) g/dL Pleural LDH (No Ref Range) Units/L Pleural Glucose (No Ref Range) mg/dL Pleural Amylase (No Ref Range) Units/L Pleural Cholesterol Nasal Screen MRSA (PCR) (Negative) Chlamy pneumoniae PCR Not Detected (Not Detect) Adenovirus (PCR) Not Detected (Not Detect) B. pertussis DNA (PCR) Not Detected (Not Detect) B.parapertussis DNA PCR Not Detected (Not Detect) Coronavirus OC43 (PCR) Not Detected (Not Detect) Coronavirus HKU1 (PCR) Not Detected (Not Detect) Coronavirus 229E (PCR) Not Detected (Not Detect) Coronavirus NL63 (PCR) Not Detected (Not Detect) Human Metapneumovir PCR Not Detected (Not Detect) Influenza A (H1) PCR Not Detected (Not Detect) Influ A (H1N1/09) PCR Not Detected (Not Detect) Influenza A (H3) PCR Not Detected (Not Detect) Influenza A Untype (PCR) Not Detected (Not Detect) Influenza Type B (PCR) Not Detected (Not Detect) M.pneumoniae DNA (PCR) Not Detected (Not Detect) Parainfluenza 1 (PCR) Not Detected (Not Detect) Parainfluenza 2 (PCR) Not Detected (Not Detect) Parainfluenza 3 (PCR) Not Detected (Not Detect) Parainfluenza 4 (PCR) Not Detected (Not Detect) RSV (PCR) Not Detected (Not Detect) Entero/Rhino (PCR) Not Detected (Not Detect) 04/26/18 Range/Units 21:30 Urine Color Dark Yellow (Yellow) Urine Clarity Turbid A (Clear) Urine pH 5.5 (5.0-8.0) pH Units Ur Specific [place] 1.022 (1.010-1.025) Urine Protein 100 H (Neg-Trace) mg/dL Urine Glucose (UA) Normal (Normal) mg/dL Urine Ketones Trace H (Negative) mg/dL Urine Blood Small H (Negative) Urine Nitrite Negative (Negative) Urine Bilirubin Moderate H (Negative) Urine Urobilinogen Normal (Normal) mg/dL Ur Leukocyte Esterase Trace H (Negative) Urine Microscopic RBC 0-3 (0-3) per hpf Urine Microscopic WBC 5-15 H (0-3) per hpf Ur Squamous Epith Cells Many H (None-Few) per lpf Ur Renal Epithelial Cell Few (None-Few) per hpf Urine Bacteria Moderate H (None-Few) per hpf Hyaline Casts Few (None-Few) per lpf Granular Casts Few H (None Seen) per lpf Urine Mucus Many H (Few) Urine Yeast Many H (None Seen) per hpf Ur Culture Indicated? NO (NO) Urine Creatinine mg/dL Urine Sodium mEq/L Pleural Fluid Volume mL Pleural Appearance (Clear) Pleural pH (No Ref Range) pH Units Pleural RBC (0.000 - 0.002) M/mcL Pleural Tot Nuc Cell (0-1000) TNC/mcL Pleural Neutrophils % Pleural Lymphocytes % % Pleural Monocytes % % Pleural Other Cells % % Pleural Total Protein (No Ref Range) g/dL Pleural LDH (No Ref Range) Units/L Pleural Glucose (No Ref Range) mg/dL Pleural Amylase (No Ref Range) Units/L Pleural Cholesterol Nasal Screen MRSA (PCR) (Negative) Chlamy pneumoniae PCR (Not Detect) Adenovirus (PCR) (Not Detect) B. pertussis DNA (PCR) (Not Detect) B.parapertussis DNA PCR (Not Detect) Coronavirus OC43 (PCR) (Not Detect) Coronavirus HKU1 (PCR) (Not Detect) Coronavirus 229E (PCR) (Not Detect) Coronavirus NL63 (PCR) (Not Detect) Human Metapneumovir PCR (Not Detect) Influenza A (H1) PCR (Not Detect) Influ A (H1N1/09) PCR (Not Detect) Influenza A (H3) PCR (Not Detect) Influenza A Untype (PCR) (Not Detect) Influenza Type B (PCR) (Not Detect) M.pneumoniae DNA (PCR) (Not Detect) Parainfluenza 1 (PCR) (Not Detect) Parainfluenza 2 (PCR) (Not Detect) Parainfluenza 3 (PCR) (Not Detect) Parainfluenza 4 (PCR) (Not Detect) RSV (PCR) (Not Detect) Entero/Rhino (PCR) (Not Detect) - Impressions Impressions Chest/Abdomen X-ray 05/22/18 09:24 IMPRESSION: 1. Right pleural effusion. 2. NG tube in place with tip in the region of the pylorus. 3. Gas and contrast seen in the colon. The colon appears distended. No significant small bowel gas identified. D/ / 05/22/2018 13:46:11 Hubert Burns MD / dominic Interpreting Provider: Hubert Burns MD Abdomen/Pelvis CT 05/22/18 18:00 IMPRESSION: Right lower quadrant fluid collection is smaller. The other fluid collection appears to have resolved. Decrease in pleural effusions. Stable left adrenal nodule. D/ / Irving Cottrell MD / Irving Cottrell MD Interpreting Provider: Irving Cottrell MD Exam - Constitutional Vitals: Temp Pulse Resp BP Pulse Ox 98.7 F 95 18 109/52 99 05/23/18 07:36 05/23/18 07:36 05/23/18 07:36 05/23/18 07:36 05/23/18 07:36 General appearance: average body habitus, no acute distress - Head Head exam: Present: atraumatic, normal inspection, normocephalic - Eye Eye exam: Present: EOMI, normal appearance, PERRL Pupils: Present: normal accommodation - ENT ENT exam: Present: mucous membranes dry - Neck Neck exam: Present: normal inspection - Respiratory Respiratory exam: Present: CTAB. Absent: decreased breath sounds, rales, respiratory distress, rhonchi, wheezes - Cardiovascular Cardiovascular exam: Present: RRR, +S1, +S2 - GI/Abdominal GI/Abdominal exam: Present: distended, hypoactive bowel sounds, soft, tenderness (generalized) Additional comments: NGT to LIWS. Midline abdominal dressing with small amount of brown serous drainage noted. Midline abdominal incision with every other staple intact. Two areas of wound dehiscence with packing noted. No ciro purulence noted today. Acosta catheter remains patent draining dark yellow clear urine. - Extremities Exam Extremities exam: Present: normal inspection. Absent: joint swelling, pedal edema, tenderness - Neurological Exam Neurological exam: Present: alert, oriented X3, no focal deficits - Psychiatric Psychiatric exam: Present: normal affect, normal mood - Skin Skin exam: Present: dry, intact, normal color, warm - VTE Documentation of Mechanical Device: Intermittent pneumatic compression device Consult Discharge Plan - Plan Referrals: Virgilio Sanchez MD [Primary Care Provider] - (Patient is from [facility]) Breanna Ocampo, LEGAL FILE CLERK [Advanced Practice Nurse] - - Attending Attestation I examined this patient and my medical decision-making was reviewed with the Resident Physician. I agree with the documented findings, disposition and treatment plan as described except to the extent set forth below.
[2018-05-23] MEDS ORDERED: Clinimix E 5%-20% SOLUTION 2,000 ML with MVI, adult with vitamin K 10 ML, Trace Eleme... IVC SCH (17:00)
[2018-05-23] MEDS ORDERED: Acetaminophen 325 MG TABLET PO PRN (23:06)
[2018-05-24] MEDS: Ipratropium/Albuterol Neb 3 ML IH SCH ×6 (03:54→22:52)
[2018-05-24 05:06] LABS: Basophils % 0.3 %; Eosinophils # 0.8 K/mcL (0.0-0.6); Eosinophils % 6.1 %; Hematocrit 24.6 % (37.5-50.1); Hemoglobin 8.4 g/dL (12.9-16.9); Immature Granulocytes % 2.1 % (0-4); Lymphocytes # 1.2 K/mcL (0.6-4.6); Lymphocytes % 8.9 %; Mean Corpuscular HGB Conc 34.1 g/dL (31.6-35.5); Mean Corpuscular Hemoglobin 30.1 pg (28.0-33.3); Mean Corpuscular Volume 88.2 fL (83.0-100.0); Monocytes # 1.5 K/mcL (0.0-1.3); Monocytes % 11.4 %; Neutrophils # 9.4 K/mcL (1.6-8.9); Platelet Count 610 K/mcL (140-400); Red Blood Count 2.79 M/mcL (4.19-5.50); Segmented Neutrophils % 71.2 %
[2018-05-24 05:26] LABS: Albumin 2.9 g/dL (3.5-5.7); Albumin/Globulin Ratio 0.8 (1.1-2.2); BUN/Creatinine Ratio 68 (6-26); Bilirubin,Direct 0.2 mg/dL (0.0-0.2); Bilirubin,Indirect 0.3 mg/dL (0.0-1.2); Bilirubin,Total 0.5 mg/dL (0.3-1.0); Blood Urea Nitrogen 25 mg/dL (8-23); Calcium 8.2 mg/dL (8.6-10.3); Carbon Dioxide 28 mEq/L (23-29); Chloride 91 mEq/L (98-107); Globulin 3.8 g/dL (2.4-3.5); Glucose 134 mg/dL (70-105); Osmolality,Calculated 272 (280-300); Potassium 3.4 mEq/L (3.5-5.1); Sodium 128 mEq/L (136-145); Total Protein 6.7 g/dL (6.4-8.9); eGFR For Non-African Americans > 60 (> 60)
[2018-05-24] MEDS: Pantoprazole 40 MG VIAL IVP SCH (05:39)
[2018-05-24] MEDS: Metoclopramide 10 MG/2 ML VIAL IVP SCH ×3 (05:39→16:51)
[2018-05-24] MEDS: *HR* Metoprolol 5 MG/5 ML VIAL IVP SCH (05:39)
--- NOTE | 2018-05-24 08:01 | Internal Med Progress Note ---
Hospitalist Progress Note - Encounter Date of Encounter: 05/24/18 Time of Encounter: 08:00 - Subjective Interval History: No acute events overnight - Exam Vitals: Temp Pulse Resp BP Pulse Ox 97.8 F 91 16 107/60 98 05/24/18 07:21 05/24/18 07:21 05/24/18 07:29 05/24/18 07:21 05/24/18 07:29 Exam: General: Patient is alert, no acute distress, oriented x 3 Head: atraumatic, normocephalic, Eye: normal appearance, PERRL, no scleral icterus, no conjunctival injection Neck: normal inspection, trachea midline, full ROM, no carotid bruits Chest: normal inspection, symmetric chest rise Respiratory: Decreased breath sounds at both bases Cardiovascular: Regular rate and rhythm. s1 and s2 No clicks, rubs, gallops, or murmurs. No pedal edema Abdomen: Abdomen is distended. Bowel sounds are present. Musculoskeletal: Spontaneously moving all extremities Skin: warm, dry, intact. Neuro: Alert oriented x 3 normal cranial nerves, no focal deficits Psych: Patient's affect is normal - Assessment and Plan (1) Small bowel obstruction Current Visit: Yes Status: Acute Assessment and Plan: Status post exploratory laparotomy, lysis of adhesions, small bowel resection and right colectomy.. Surgery following. X-ray of the abdomen shows distended colon without any significant small bowel gas. Continue supportive care. On TPN. Nasogastric tube to low intermittent suction. Moderate risk for complications. Discussed discharge planning with case management. Plan for long-term acute care. Will plan for discharge once cleared by surgery (2) SIRS (systemic inflammatory response syndrome) Current Visit: Yes Status: Acute Assessment and Plan: Leukocytosis persists but improving. Infectious disease consulted for recommendations. We will follow their recommendations. Patient does have reactive thrombocytopenia. Seen by ID who recommend holding antibiotics for now as leukocytosis may be reactive. Blood cultures on 05/21 are negative. Obtain swab of umbilical pus which has been sent. recent CT abdomen showed resolution of previous fluid collections (3) Acute respiratory failure with hypoxia Current Visit: Yes Status: Acute Assessment and Plan: Improved. On 1.5 L nasal cannula (4) Umbilical hernia Current Visit: Yes Status: Acute Assessment and Plan: Status post incisional hernia repair with mesh (5) COPD (chronic obstructive pulmonary disease) Current Visit: Yes Status: Chronic Assessment and Plan: Continue bronchodilators as needed. (6) NUNU (acute kidney injury) Current Visit: Yes Status: Resolved Assessment and Plan: resolved (7) Electrolyte imbalance Current Visit: Yes Status: Acute Assessment and Plan: We will replace intravenously with TPN (8) Protein calorie malnutrition Current Visit: Yes Status: Acute Assessment and Plan: Continue TPN (9) Essential hypertension Current Visit: Yes Status: Chronic Assessment and Plan: Well-controlled (10) Pneumonia Current Visit: Yes Status: Resolved Assessment and Plan: Completed antibiotic course. (11) Lung nodule seen on imaging study Current Visit: Yes Status: Chronic Assessment and Plan: Follow-up outpatient for further evaluation. Concern for malignancy (12) Gross hematuria Current Visit: Yes Status: Acute Assessment and Plan: Improving. Acosta catheter in place. Avoiding heparin products. Urology following. Hemoglobin levels remain stable. (13) Hyponatremia Current Visit: Yes Status: Acute Assessment and Plan: Started on sodium tablets. Holding Iv fluids due to TPN volume - Time Spent with Patient Total time spent is greater than 50% in coordination of care (as documented) at patient's floor/unit and/or counseling patient: Internal Medicine: Result - Labs CBC & Chem 7: 05/24/18 04:44 05/24/18 04:44 Labs: Short CBC 05/24/18 Range/Units 04:44 WBC 13.2 H (4.3-11.1) K/mcL Hgb 8.4 L (12.9-16.9) g/dL Hct 24.6 L (37.5-50.1) % Plt Count 610 H (140-400) K/mcL Neutrophils # 9.4 H (1.6-8.9) K/mcL BMP 05/24/18 04:44 Sodium 128 L Potassium 3.4 L Chloride 91 L Carbon Dioxide 28 BUN 25 H Creatinine 0.37 L Glucose 134 H Calcium 8.2 L Liver Function 05/24/18 Range/Units 04:44 Total Bilirubin 0.5 (0.3-1.0) mg/dL Direct Bilirubin 0.2 (0.0-0.2) mg/dL AST 13 (13-39) Units/L ALT 13 (7-52) Units/L Alkaline Phosphatase 220 H (34-104) Units/L Albumin 2.9 L (3.5-5.7) g/dL - ABG Interpretation ABG results: ABG ABG pH 7.52 pH Units (7.32-7.45) H 05/17/18 09:58 ABG pCO2 39 mmHg (35-45) 05/17/18 09:58 ABG pO2 62 mmHg (85-104) L 05/17/18 09:58 ABG O2 Saturation 94 % (95-98) L 05/17/18 09:58 PT/INR, D-dimer PT 16.0 Seconds (9.4-12.1) H 05/17/18 04:00 - VTE Documentation of Mechanical Device: Intermittent pneumatic compression device Consult Discharge Plan - Plan Referrals: Virgilio Sanchez MD [Primary Care Provider] - (Patient is from [facility]) Breanna Ocampo CNP [Advanced Practice Nurse] - (4) Umbilical hernia Qualifiers: Obstruction and gangrene presence: with obstruction but without gangrene Qualified Code(s): K42.0 - Umbilical hernia with obstruction, without gangrene (5) COPD (chronic obstructive pulmonary disease) Qualifiers: COPD type: chronic bronchitis Chronic bronchitis type: unspecified Qualified Code(s): J42 - Unspecified chronic bronchitis (8) Protein calorie malnutrition Qualifiers: Protein-calorie malnutrition severity: severe Qualified Code(s): E43 - Unspecified severe protein-calorie malnutrition (10) Pneumonia Qualifiers: Pneumonia type: due to unspecified organism Laterality: right Lung location : lower lobe of lung Qualified Code(s): J18.1 - Lobar pneumonia, unspecified organism
[2018-05-24] MEDS: Potassium Chloride Elixir 20 MEQ/15 ML UDC PO SCH ×2 (08:29→16:46)
[2018-05-24] MEDS: Furosemide 40 MG/4 ML VIAL IVP SCH ×3 (08:29→16:51)
[2018-05-24] MEDS ORDERED: Potassium Chloride Elixir 20 MEQ/15 ML UDC PO SCH (09:00)
[2018-05-24] MEDS ORDERED: Metoprolol XL (24 HR) Succ 25 MG TAB.ER.24H PO SCH (09:00)
--- NOTE | 2018-05-24 12:35 | Infectious Disease Progress No ---
Date of Encounter: 05/24/18 Time of Encounter: 12:32 - Assessment and Plan (1) Sepsis Current Visit: Yes Status: Acute Severe sepsis on admission: two SIRS criteria plus hypotension, NUNU, and lactic acidosis. Improved. NUNU and lactic acidosis resolved. Blood pressure stable. WBC trending down. Etiology of persistent leukocytosis unclear, but no obvious infection noted. The patient has been afebrile. Blood pressure has been stable. Blood cultures drawn 04/26/18 x2, 05/02/18 x 2, 05/06/18 x 2, 05/09/18 x 2 are all negative. Additional blood cultures drawn 05/21/18 are NGTD x 2 sets. Check LFTs, amylase, and lipase. --> alk phos elevated, but otherwise normal. Get CT of the chest, abdomen, and pelvis with IV and PO/NG contrast in the AM.-- > improvement/resolution of previously-noted fluid collections noted. Get swab cultures of the pus coming from the umbilicus.--> Pending. He does have a PICC line, but clinically does not appear infected. Continue to observe off antibiotics. If the patient becomes febrile, get blood cultures x 3 sets (1 from PICC and two peripheral) and re-start broad-spectrum antibiotics. Qualifiers: Sepsis type: sepsis due to unspecified organism Qualified Code(s): A41.9 - Sepsis, unspecified organism (2) Small bowel obstruction Current Visit: Yes Status: Resolved Likely secondary to umbilical hernia, which was reduced in the ER 04/26/18. Continued to have findings consistent with SBO/ileus. Status post robotic incisional hernia repair 04/28/[address] Bess. Again continued to have findings concerning for SBO/ileus and possible perforation on imaging. Status post exploratory lap with RYDER, SBR, and right colectomy 05/10/[address] Bess. Operative note reviewed. Enterotomies x 2 due to extensive adhesions. CT of the abdomen and pelvis 05/22/18 shows normal small bowel and colon. (3) Ileus, postoperative Current Visit: Yes Status: Acute Prolonged post-op ileus noted on serial abdominal x-rays. The patient did have bowel sounds and BM x 2 05/22/18, but none since. NGT remains in place. Hypoactive bowel sounds noted. Further management per the surgery team. (4) Incarcerated incisional hernia Current Visit: Yes Status: Acute Status post reduction in the ER 04/26/[address] Bess. Status post robotic incisional hernia repair with mesh 04/28/18. (5) NUNU (acute kidney injury) Current Visit: Yes Status: Resolved Likely secondary to sepsis and poor PO intake prior to admission. Resolved. (6) Lactic acidosis Current Visit: Yes Status: Resolved Likely secondary to sepsis. Resolved. (7) Hyponatremia Current Visit: No Status: Acute Improved. (8) Lung nodule Current Visit: Yes Status: Acute CT of the chest showed spiculated nodule in the right upper lobe highly suspicious for malignancy. Hem/Onc consulted with plans to PET/biopsy as an outpatient. (9) Acute anemia Current Visit: Yes Status: Acute Hgb 8.4 this morning. No acute bleeding noted on exam. Further workup and management per the primary team. (10) Acute respiratory failure with hypoxia Current Visit: Yes Status: Acute Likely secondary to large left pleural effusion. Resolved. (11) Pleural effusion Current Visit: Yes Status: Acute CXR 05/16/18 showed persistent bilateral pleural effusions with pulmonary vascular congestion. Status post left thoracentesis with 1000ml transudative fluid removed. Culture negative. Cytology negative for malignancy. Repeat CXR 05/18/18 showed worsening bibasilar atelectasis vs. PNA (likely atelectasis based on clinical picture) and increased right pleural effusion. Recommend pulmonology to evaluate for increased right pleural effusion. (12) Pneumonia Current Visit: Yes Status: Resolved CT of the chest 05/05 showed consolidative changes and atelectatic changes mostly in the right lower lobe consistent with PNA. Received 6 days of Rocephin and Flagyl. Qualifiers: Pneumonia type: due to unspecified organism Laterality: right Lung location: lower lobe of lung Qualified Code(s): J18.1 - Lobar pneumonia, unspecified organism (13) Hematuria Current Visit: Yes Status: Resolved Etiology unclear: trauma vs. malignancy vs. other. CT scan showed findings of bladder wall thickening. Urology consulted and recommendations noted. Appears resolved. Qualifiers: Hematuria type: unspecified type Qualified Code(s): R31.9 - Hematuria, unspecified (14) COPD (chronic obstructive pulmonary disease) Current Visit: Yes Status: Chronic Qualifiers: COPD type: chronic bronchitis Chronic bronchitis type: unspecified Qualified Code(s): J42 - Unspecified chronic bronchitis - Subjective Interval history: Patient seen and examined. No acute events noted overnight. Patient states overall he feels a little better. Denies fevers or chills or rigors. States he feels generally weak. Denies chest pain or shortness of breath. Reports a chronic cough productive of white sputum. Denies nausea or vomiting. Reports abdominal distention persists. Reports flatulence yesterday. Denies bowel movement since Tuesday. Acosta catheter remains patent. Denies oral thrush or new skin lesions. Infect Dis PN-Objective Data - Labs CBC & Chem 7: 05/25/18 04:58 05/25/18 04:58 Labs: Laboratory Results - last 24 hr 05/23/18 05/23/18 05/23/18 00:17 05:23 12:24 WBC RBC Hgb Hct MCV MCH MCHC RDW Plt Count MPV Immature Gran % Seg Neutrophils % Lymphocytes % Monocytes % Eosinophils % Basophils % Neutrophils # Lymphocytes # Monocytes # Eosinophils # Basophils # Sodium Potassium Chloride Carbon Dioxide BUN Creatinine Est GFR ( Amer) Est GFR (Non-Af Amer) BUN/Creatinine Ratio Glucose POC Glucose 126 H 149 H 133 H Calculated Osmolality Calcium Phosphorus Magnesium Total Bilirubin Direct Bilirubin Indirect Bilirubin AST ALT Alkaline Phosphatase Serum Total Protein Albumin Globulin Albumin/Globulin Ratio 05/23/18 05/24/18 05/24/18 17:41 00:10 04:44 WBC RBC Hgb Hct MCV MCH MCHC RDW Plt Count MPV Immature Gran % Seg Neutrophils % Lymphocytes % Monocytes % Eosinophils % Basophils % Neutrophils # Lymphocytes # Monocytes # Eosinophils # Basophils # Sodium 128 L Potassium 3.4 L Chloride 91 L Carbon Dioxide 28 BUN 25 H Creatinine 0.37 L Est GFR ( Amer) > 60 Est GFR (Non-Af Amer) > 60 BUN/Creatinine Ratio 68 H Glucose 134 H POC Glucose 154 H 131 H Calculated Osmolality 272 L Calcium 8.2 L Phosphorus Magnesium Total Bilirubin Direct Bilirubin Indirect Bilirubin AST ALT Alkaline Phosphatase Serum Total Protein Albumin Globulin Albumin/Globulin Ratio 05/24/18 05/24/18 04:44 04:44 WBC 13.2 H RBC 2.79 L Hgb 8.4 L Hct 24.6 L MCV 88.2 MCH 30.1 MCHC 34.1 RDW 15.0 H Plt Count 610 H MPV 10.0 Immature Gran % 2.1 Seg Neutrophils % 71.2 Lymphocytes % 8.9 Monocytes % 11.4 Eosinophils % 6.1 Basophils % 0.3 Neutrophils # 9.4 H Lymphocytes # 1.2 Monocytes # 1.5 H Eosinophils # 0.8 H Basophils # 0.0 Sodium Potassium Chloride Carbon Dioxide BUN Creatinine Est GFR ( Amer) Est GFR (Non-Af Amer) BUN/Creatinine Ratio Glucose POC Glucose Calculated Osmolality Calcium Phosphorus 4.0 Magnesium 2.0 Total Bilirubin 0.5 Direct Bilirubin 0.2 Indirect Bilirubin 0.3 AST 13 ALT 13 Alkaline Phosphatase 220 H Serum Total Protein 6.7 Albumin 2.9 L Globulin 3.8 H Albumin/Globulin Ratio 0.8 L Cultures: Cultures 05/21/18 13:35 Blood Culture - Preliminary Central Venous Catheter Culture is incubating and being continuously monitored for growth. Final report to follow. 05/21/18 13:40 Blood Culture - Preliminary Peripheral Venipuncture Culture is incubating and being continuously monitored for growth. Final report to follow. 05/17/18 11:25 Body Fluid Culture - Final Pleural Fluid 05/09/18 13:50 Blood Culture - Final Peripheral Venipuncture No growth. Final report. 05/09/18 13:55 Blood Culture - Final Peripheral Venipuncture No growth. Final report. 05/06/18 12:23 Blood Culture - Final Peripheral Venipuncture No growth. Final report. 05/06/18 12:28 Blood Culture - Final Peripheral Venipuncture No growth. Final report. 05/02/18 09:50 Blood Culture - Final Peripheral Venipuncture No growth. Final report. 05/02/18 09:50 Blood Culture - Final Peripheral Venipuncture No growth. Final report. 04/26/18 21:30 Legionella Antigen - Final Urine,Clean Catch Serology 05/17/18 05/17/18 05/17/18 Range/Units 11:25 11:25 11:25 Urine Color (Yellow) Urine Clarity (Clear) Urine pH (5.0-8.0) pH Units Ur Specific [place] (1.010-1.025) Urine Protein (Neg-Trace) mg/dL Urine Glucose (UA) (Normal) mg/dL Urine Ketones (Negative) mg/dL Urine Blood (Negative) Urine Nitrite (Negative) Urine Bilirubin (Negative) Urine Urobilinogen (Normal) mg/dL Ur Leukocyte Esterase (Negative) Urine Microscopic RBC (0-3) per hpf Urine Microscopic WBC (0-3) per hpf Ur Squamous Epith Cells (None-Few) per lpf Ur Renal Epithelial Cell (None-Few) per hpf Urine Bacteria (None-Few) per hpf Hyaline Casts (None-Few) per lpf Granular Casts (None Seen) per lpf Urine Mucus (Few) Urine Yeast (None Seen) per hpf Ur Culture Indicated? (NO) Urine Creatinine mg/dL Urine Sodium mEq/L Pleural Fluid Volume 800.0 mL Pleural Appearance Clear (Clear) Pleural pH 8.00 (No Ref Range) pH Units Pleural RBC < 0.002 (0.000 - 0.002) M/mcL Pleural Tot Nuc Cell 47 (0-1000) TNC/mcL Pleural Neutrophils 61.0 % Pleural Lymphocytes % 27.0 % Pleural Monocytes % 6.0 % Pleural Other Cells % 6.0 % Pleural Total Protein (No Ref Range) g/dL Pleural LDH (No Ref Range) Units/L Pleural Glucose 146 (No Ref Range) mg/dL Pleural Amylase < 10 (No Ref Range) Units/L Pleural Cholesterol [employer] Nasal Screen MRSA (PCR) (Negative) Chlamy pneumoniae PCR (Not Detect) Adenovirus (PCR) (Not Detect) B. pertussis DNA (PCR) (Not Detect) B.parapertussis DNA PCR (Not Detect) Coronavirus OC43 (PCR) (Not Detect) Coronavirus HKU1 (PCR) (Not Detect) Coronavirus 229E (PCR) (Not Detect) Coronavirus NL63 (PCR) (Not Detect) Human Metapneumovir PCR (Not Detect) Influenza A (H1) PCR (Not Detect) Influ A (H1N1/09) PCR (Not Detect) Influenza A (H3) PCR (Not Detect) Influenza A Untype (PCR) (Not Detect) Influenza Type B (PCR) (Not Detect) M.pneumoniae DNA (PCR) (Not Detect) Parainfluenza 1 (PCR) (Not Detect) Parainfluenza 2 (PCR) (Not Detect) Parainfluenza 3 (PCR) (Not Detect) Parainfluenza 4 (PCR) (Not Detect) RSV (PCR) (Not Detect) Entero/Rhino (PCR) (Not Detect) 05/17/18 05/15/18 05/15/18 Range/Units 11:25 22:48 21:33 Urine Color Red A (Yellow) Urine Clarity Turbid A (Clear) Urine pH 6.0 (5.0-8.0) pH Units Ur Specific [place] 1.015 (1.010-1.025) Urine Protein 100 H (Neg-Trace) mg/dL Urine Glucose (UA) Normal (Normal) mg/dL Urine Ketones Trace H (Negative) mg/dL Urine Blood Large H (Negative) Urine Nitrite Negative (Negative) Urine Bilirubin Moderate H (Negative) Urine Urobilinogen Normal (Normal) mg/dL Ur Leukocyte Esterase Small H (Negative) Urine Microscopic RBC TNTC H (0-3) per hpf Urine Microscopic WBC 30-50 H (0-3) per hpf Ur Squamous Epith Cells Many H (None-Few) per lpf Ur Renal Epithelial Cell (None-Few) per hpf Urine Bacteria None Seen (None-Few) per hpf Hyaline Casts None Seen (None-Few) per lpf Granular Casts (None Seen) per lpf Urine Mucus (Few) Urine Yeast (None Seen) per hpf Ur Culture Indicated? NO. A (NO) Urine Creatinine mg/dL Urine Sodium mEq/L Pleural Fluid Volume mL Pleural Appearance (Clear) Pleural pH (No Ref Range) pH Units Pleural RBC (0.000 - 0.002) M/mcL Pleural Tot Nuc Cell (0-1000) TNC/mcL Pleural Neutrophils % Pleural Lymphocytes % % Pleural Monocytes % % Pleural Other Cells % % Pleural Total Protein < 3.0 (No Ref Range) g/dL Pleural LDH 63 (No Ref Range) Units/L Pleural Glucose (No Ref Range) mg/dL Pleural Amylase (No Ref Range) Units/L Pleural Cholesterol Nasal Screen MRSA (PCR) Negative (Negative) Chlamy pneumoniae PCR (Not Detect) Adenovirus (PCR) (Not Detect) B. pertussis DNA (PCR) (Not Detect) B.parapertussis DNA PCR (Not Detect) Coronavirus OC43 (PCR) (Not Detect) Coronavirus HKU1 (PCR) (Not Detect) Coronavirus 229E (PCR) (Not Detect) Coronavirus NL63 (PCR) (Not Detect) Human Metapneumovir PCR (Not Detect) Influenza A (H1) PCR (Not Detect) Influ A (H1N1/09) PCR (Not Detect) Influenza A (H3) PCR (Not Detect) Influenza A Untype (PCR) (Not Detect) Influenza Type B (PCR) (Not Detect) M.pneumoniae DNA (PCR) (Not Detect) Parainfluenza 1 (PCR) (Not Detect) Parainfluenza 2 (PCR) (Not Detect) Parainfluenza 3 (PCR) (Not Detect) Parainfluenza 4 (PCR) (Not Detect) RSV (PCR) (Not Detect) Entero/Rhino (PCR) (Not Detect) 05/02/18 04/27/18 04/26/18 Range/Units 18:00 04:22 21:30 Urine Color Dark Yellow (Yellow) Urine Clarity Clear (Clear) Urine pH 7.0 (5.0-8.0) pH Units Ur Specific [place] 1.025 (1.010-1.025) Urine Protein 30 H (Neg-Trace) mg/dL Urine Glucose (UA) Normal (Normal) mg/dL Urine Ketones 15 H (Negative) mg/dL Urine Blood Negative (Negative) Urine Nitrite Positive A (Negative) Urine Bilirubin Small H (Negative) Urine Urobilinogen Normal (Normal) mg/dL Ur Leukocyte Esterase Trace H (Negative) Urine Microscopic RBC 0-3 (0-3) per hpf Urine Microscopic WBC 0-3 (0-3) per hpf Ur Squamous Epith Cells Many H (None-Few) per lpf Ur Renal Epithelial Cell (None-Few) per hpf Urine Bacteria None Seen (None-Few) per hpf Hyaline Casts None Seen (None-Few) per lpf Granular Casts (None Seen) per lpf Urine Mucus (Few) Urine Yeast (None Seen) per hpf Ur Culture Indicated? NO. A (NO) Urine Creatinine 137 mg/dL Urine Sodium 23.7 mEq/L Pleural Fluid Volume mL Pleural Appearance (Clear) Pleural pH (No Ref Range) pH Units Pleural RBC (0.000 - 0.002) M/mcL Pleural Tot Nuc Cell (0-1000) TNC/mcL Pleural Neutrophils % Pleural Lymphocytes % % Pleural Monocytes % % Pleural Other Cells % % Pleural Total Protein (No Ref Range) g/dL Pleural LDH (No Ref Range) Units/L Pleural Glucose (No Ref Range) mg/dL Pleural Amylase (No Ref Range) Units/L Pleural Cholesterol Nasal Screen MRSA (PCR) (Negative) Chlamy pneumoniae PCR Not Detected (Not Detect) Adenovirus (PCR) Not Detected (Not Detect) B. pertussis DNA (PCR) Not Detected (Not Detect) B.parapertussis DNA PCR Not Detected (Not Detect) Coronavirus OC43 (PCR) Not Detected (Not Detect) Coronavirus HKU1 (PCR) Not Detected (Not Detect) Coronavirus 229E (PCR) Not Detected (Not Detect) Coronavirus NL63 (PCR) Not Detected (Not Detect) Human Metapneumovir PCR Not Detected (Not Detect) Influenza A (H1) PCR Not Detected (Not Detect) Influ A (H1N1/09) PCR Not Detected (Not Detect) Influenza A (H3) PCR Not Detected (Not Detect) Influenza A Untype (PCR) Not Detected (Not Detect) Influenza Type B (PCR) Not Detected (Not Detect) M.pneumoniae DNA (PCR) Not Detected (Not Detect) Parainfluenza 1 (PCR) Not Detected (Not Detect) Parainfluenza 2 (PCR) Not Detected (Not Detect) Parainfluenza 3 (PCR) Not Detected (Not Detect) Parainfluenza 4 (PCR) Not Detected (Not Detect) RSV (PCR) Not Detected (Not Detect) Entero/Rhino (PCR) Not Detected (Not Detect) 04/26/18 Range/Units 21:30 Urine Color Dark Yellow (Yellow) Urine Clarity Turbid A (Clear) Urine pH 5.5 (5.0-8.0) pH Units Ur Specific [place] 1.022 (1.010-1.025) Urine Protein 100 H (Neg-Trace) mg/dL Urine Glucose (UA) Normal (Normal) mg/dL Urine Ketones Trace H (Negative) mg/dL Urine Blood Small H (Negative) Urine Nitrite Negative (Negative) Urine Bilirubin Moderate H (Negative) Urine Urobilinogen Normal (Normal) mg/dL Ur Leukocyte Esterase Trace H (Negative) Urine Microscopic RBC 0-3 (0-3) per hpf Urine Microscopic WBC 5-15 H (0-3) per hpf Ur Squamous Epith Cells Many H (None-Few) per lpf Ur Renal Epithelial Cell Few (None-Few) per hpf Urine Bacteria Moderate H (None-Few) per hpf Hyaline Casts Few (None-Few) per lpf Granular Casts Few H (None Seen) per lpf Urine Mucus Many H (Few) Urine Yeast Many H (None Seen) per hpf Ur Culture Indicated? NO (NO) Urine Creatinine mg/dL Urine Sodium mEq/L Pleural Fluid Volume mL Pleural Appearance (Clear) Pleural pH (No Ref Range) pH Units Pleural RBC (0.000 - 0.002) M/mcL Pleural Tot Nuc Cell (0-1000) TNC/mcL Pleural Neutrophils % Pleural Lymphocytes % % Pleural Monocytes % % Pleural Other Cells % % Pleural Total Protein (No Ref Range) g/dL Pleural LDH (No Ref Range) Units/L Pleural Glucose (No Ref Range) mg/dL Pleural Amylase (No Ref Range) Units/L Pleural Cholesterol Nasal Screen MRSA (PCR) (Negative) Chlamy pneumoniae PCR (Not Detect) Adenovirus (PCR) (Not Detect) B. pertussis DNA (PCR) (Not Detect) B.parapertussis DNA PCR (Not Detect) Coronavirus OC43 (PCR) (Not Detect) Coronavirus HKU1 (PCR) (Not Detect) Coronavirus 229E (PCR) (Not Detect) Coronavirus NL63 (PCR) (Not Detect) Human Metapneumovir PCR (Not Detect) Influenza A (H1) PCR (Not Detect) Influ A (H1N1/09) PCR (Not Detect) Influenza A (H3) PCR (Not Detect) Influenza A Untype (PCR) (Not Detect) Influenza Type B (PCR) (Not Detect) M.pneumoniae DNA (PCR) (Not Detect) Parainfluenza 1 (PCR) (Not Detect) Parainfluenza 2 (PCR) (Not Detect) Parainfluenza 3 (PCR) (Not Detect) Parainfluenza 4 (PCR) (Not Detect) RSV (PCR) (Not Detect) Entero/Rhino (PCR) (Not Detect) Exam - Constitutional Vitals: Temp Pulse Resp BP Pulse Ox 98.0 F 95 16 100/62 96 05/24/18 10:40 05/24/18 10:40 05/24/18 11:17 05/24/18 10:40 05/24/18 11:17 General appearance: average body habitus, cooperative, no acute distress - Head Head exam: Present: atraumatic, normal inspection, normocephalic - Eye Eye exam: Present: EOMI, normal appearance, PERRL Pupils: Present: normal accommodation - ENT ENT exam: Present: mucous membranes moist - Neck Neck exam: Present: normal inspection - Respiratory Respiratory exam: Present: CTAB. Absent: rales, respiratory distress, rhonchi, wheezes - Cardiovascular Cardiovascular exam: Present: RRR, +S1, +S2 - GI/Abdominal GI/Abdominal exam: Present: distended, hypoactive bowel sounds, soft, tenderness (generalized) Additional comments: NGT to gravity. Midline abdominal incision with dressing C/D/I. Acosta catheter noted to be draining clear yellow urine. - Extremities Exam Extremities exam: Present: normal inspection. Absent: joint swelling, pedal edema, tenderness - Neurological Exam Neurological exam: Present: alert, oriented X3, no focal deficits - Psychiatric Psychiatric exam: Present: normal affect, normal mood - Skin Skin exam: Present: dry, intact, normal color, warm - VTE Documentation of Mechanical Device: Intermittent pneumatic compression device Consult Discharge Plan - Plan Referrals: Virgilio Sanchez MD [Primary Care Provider] - (Patient is from [facility]) Breanna Bess CNP [Advanced Practice Nurse] - - Attending Attestation I examined this patient and my medical decision-making was reviewed with Ana Rosa Mc CNP. I agree with the documented findings, disposition and treatment plan as described except to the extent set forth below.
--- NOTE | 2018-05-24 16:22 | General Surgery Progress Note ---
Date of Encounter: 05/24/18 Time of Encounter: 16:00 - Assessment and Plan (1) Small bowel obstruction Current Visit: Yes Status: Acute POD #14 Exploratory laparotomy with lysis of adhesions 45 minutes, Small bowel resection due to adhesio lysis, Right colectomy with Dr. Bess NPO NG back to [facility], patient nauseated with gravity drain Complete SBFT with gastrograffin in the am 8/16 TPN for nutritional support Supportive care and pain control IS every 1 hour while awake Out of bed to chair TID with assistance Daily wound care- packing Surgery will continue to follow for mangement of NG, diet, wound care (2) Incarcerated incisional hernia Current Visit: Yes Status: Acute POD #26 from an open incisional hernia repair with mesh with Dr. Bess. Supportive care and pain control Daily wound care IS every 1 hour while awake Out of bed to chair TID with assistance Surgery will continue to follow (3) Ileus, postoperative Current Visit: Yes Status: Acute NPO NG back to [facility], patient nauseated with gravity drain Complete SBFT with gastrograffin in the am 16 TPN for nutritional support Continue reglan (4) Bilateral pleural effusion Current Visit: Yes Status: Acute S/P drainage of left pleural effusion per pulmonary/critical care team 05/17/18 Continue to monitor and provide supportive care IS every 1 hour while awake Pulmonary toilet (5) COPD (chronic obstructive pulmonary disease) Current Visit: Yes Status: Chronic Management per pulmonary team IS every 1 hour while awake Pulmonary toilet Qualifiers: COPD type: chronic bronchitis Chronic bronchitis type: unspecified Qualified Code(s): J42 - Unspecified chronic bronchitis (6) Pneumonia Current Visit: Yes Status: Resolved Management per medicine team Antibiotics de-escalated 05/18/18 Qualifiers: Pneumonia type: due to unspecified organism Laterality: right Lung location: lower lobe of lung Qualified Code(s): J18.1 - Lobar pneumonia, unspecified organism (7) Gross hematuria Current Visit: Yes Status: Resolved Improved Crocker catheter to SD with CBI (8) Lung nodule seen on imaging study Current Visit: Yes Status: Chronic Patient with need further imaging as outpatient- PET scan Outpatient appointment with oncology- Dr. Richard for further work-up (9) DVT prophylaxis Current Visit: Yes Status: Acute Hold heparin due to hematuria EPCDs to bilateral lower extremties for DVT prophylaxis Out of bed to chair TID with assistance Subjective Patient reports: no new complaints, still having pain, pain is less, flatus ( minimal), no bowel movement, nausea (NG placed back to LIWS), afebrile Objective Vital Signs - Last 8 Hours Temp Pulse Resp BP Pulse Ox 05/24/18 16:05 98.1 F 95 18 95/47 94 05/24/18 11:17 16 96 05/24/18 10:40 98.0 F 95 19 100/62 98 Intake and Output 05/24/18 05/24/18 05/24/18 07:59 15:59 23:59 Intake Total 0 / 0 Output Total 475 / 475 100 / 100 Balance -475 / -475 -100 / -100 Intake: Oral 0 / 0 Output: Catheter 400 / 400 Gastric Drainage 75 / 75 100 / 100 R Nares 100 / 100 Other: Meal Lunch Percent of Meal Consumed 0% Weight 71.9 kg Blood Glucose* 157 Patient Weight 05/24/18 23:59 Weight 71.9 kg - General physical appearance well developed, no distress, chronically ill - Eyes normal ocular movement - ENT dry mucosa, atraumatic, normocephalic - Neck Neck exam: trachea midline - Respiratory normal respiratory effort, clear to auscultation, other (diminished bibasilar bases) - Cardiovascular Cardiovascular exam: Present: RRR - Abdomen Abdomen: Present: bowel sounds present (hypoactive), soft, distended, tender ( improving), wound (NG to LIWS with clear, yellow drainage noted (275ml noted since midnight)) - Incision Incision: Present: open (Midline with 2 open areas noted with serous drainage, no erythema or induration noted) - Genitourinary other (crocker catheter to SD) - Neurologic CN 2-12 grossly intact - Musculoskeletal other (physical deconditioning noted) - Psychiatric oriented to time, oriented to person, oriented to place, speech is normal, memory intact - Labs 05/24/18 04:44 05/24/18 04:44 Diabetes panel 05/24/18 05/24/18 Range/Units 04:44 04:44 Sodium 128 L (136-145) mEq/L Potassium 3.4 L (3.5-5.1) mEq/L Chloride 91 L (98-107) mEq/L Carbon Dioxide 28 (23-29) mEq/L BUN 25 H (8-23) mg/dL Creatinine 0.37 L (0.70-1.30) mg/dL Glucose 134 H (70-105) mg/dL Calcium 8.2 L (8.6-10.3) mg/dL AST 13 (13-39) Units/L ALT 13 (7-52) Units/L Alkaline Phosphatase 220 H (34-104) Units/L Albumin 2.9 L (3.5-5.7) g/dL Calcium panel 05/24/18 05/24/18 Range/Units 04:44 04:44 Calcium 8.2 L (8.6-10.3) mg/dL Phosphorus 4.0 (2.7-4.5) mg/dL Albumin 2.9 L (3.5-5.7) g/dL Pituitary panel 05/24/18 Range/Units 04:44 Sodium 128 L (136-145) mEq/L Potassium 3.4 L (3.5-5.1) mEq/L Chloride 91 L (98-107) mEq/L Carbon Dioxide 28 (23-29) mEq/L BUN 25 H (8-23) mg/dL Creatinine 0.37 L (0.70-1.30) mg/dL Glucose 134 H (70-105) mg/dL Calcium 8.2 L (8.6-10.3) mg/dL Adrenal panel 05/24/18 05/24/18 Range/Units 04:44 04:44 Sodium 128 L (136-145) mEq/L Potassium 3.4 L (3.5-5.1) mEq/L Chloride 91 L (98-107) mEq/L Carbon Dioxide 28 (23-29) mEq/L BUN 25 H (8-23) mg/dL Creatinine 0.37 L (0.70-1.30) mg/dL Glucose 134 H (70-105) mg/dL Calcium 8.2 L (8.6-10.3) mg/dL Total Bilirubin 0.5 (0.3-1.0) mg/dL AST 13 (13-39) Units/L ALT 13 (7-52) Units/L Alkaline Phosphatase 220 H (34-104) Units/L Albumin 2.9 L (3.5-5.7) g/dL - VTE Documentation of Mechanical Device: Intermittent pneumatic compression device Consult Discharge Plan - Plan Referrals: Virgilio Sanchez MD [Primary Care Provider] - (Patient is from [facility]) Breanna Ocampo CNP [Advanced Practice Nurse] - - Attending Attestation For this encounter, I have reviewed the EHR TRAINER or PA documentation, treatment plan, and medical decision making; and I have had face to face time with this patient.
[2018-05-24] MEDS ORDERED: Clinimix E 5%-20% SOLUTION 2,000 ML with MVI, adult with vitamin K 10 ML, Trace Eleme... IVC SCH (17:00)
[2018-05-24] MEDS: Clinimix E 5%-20% SOLUTION 2,000 ML with MVI, adult with vitamin K 10 ML, Trace Eleme... IVC SCH (21:00)
[2018-05-25] MEDS: Metoclopramide 10 MG/2 ML VIAL IVP SCH ×5 (01:00→23:44)
[2018-05-25] MEDS: *HR* Metoprolol 5 MG/5 ML VIAL IVP SCH ×5 (01:00→23:44)
[2018-05-25] MEDS: Ipratropium/Albuterol Neb 3 ML IH SCH ×6 (03:37→23:15)
[2018-05-25 05:49] LABS: Basophils # 0.1 K/mcL (0.0-0.2); Basophils % 0.4 %; Eosinophils # 0.5 K/mcL (0.0-0.6); Eosinophils % 4.3 %; Hematocrit 23.7 % (37.5-50.1); Immature Granulocytes % 1.8 % (0-4); Lymphocytes # 1.2 K/mcL (0.6-4.6); Lymphocytes % 9.4 %; Mean Corpuscular HGB Conc 33.8 g/dL (31.6-35.5); Mean Corpuscular Hemoglobin 29.1 pg (28.0-33.3); Mean Corpuscular Volume 86.2 fL (83.0-100.0); Monocytes # 1.5 K/mcL (0.0-1.3); Neutrophils # 8.8 K/mcL (1.6-8.9); Platelet Count 630 K/mcL (140-400); Red Blood Count 2.75 M/mcL (4.19-5.50); Red Cell Distribution Width 15.3 % (11.5-14.5); Segmented Neutrophils % 72.1 %
[2018-05-25 06:05] LABS: BUN/Creatinine Ratio 79 (6-26); Blood Urea Nitrogen 26 mg/dL (8-23); Calcium 8.6 mg/dL (8.6-10.3); Carbon Dioxide 30 mEq/L (23-29); Chloride 92 mEq/L (98-107); Glucose 133 mg/dL (70-105); Magnesium 2.1 mg/dL (1.6-2.6); Osmolality,Calculated 279 (280-300); Potassium 3.5 mEq/L (3.5-5.1); Sodium 131 mEq/L (136-145); eGFR For Non-African Americans > 60 (> 60)
--- NOTE | 2018-05-25 07:45 | Internal Med Progress Note ---
Hospitalist Progress Note - Encounter Date of Encounter: 05/25/18 Time of Encounter: 07:45 - Subjective Interval History: No acute events overnight - Exam Vitals: Temp Pulse Resp BP Pulse Ox 97.5 F L 84 17 115/56 96 05/25/18 07:09 05/25/18 07:09 05/25/18 07:09 05/25/18 07:09 05/25/18 07:09 Exam: General: Patient is alert, no acute distress, oriented x 3 Head: atraumatic, normocephalic, Eye: normal appearance, PERRL, no scleral icterus, no conjunctival injection Neck: normal inspection, trachea midline, full ROM, no carotid bruits Chest: normal inspection, symmetric chest rise Respiratory: Decreased breath sounds at both bases Cardiovascular: Regular rate and rhythm. s1 and s2 No clicks, rubs, gallops, or murmurs. No pedal edema Abdomen: Abdomen is distended. Bowel sounds are present. Musculoskeletal: Spontaneously moving all extremities Skin: warm, dry, intact. Neuro: Alert oriented x 3 normal cranial nerves, no focal deficits Psych: Patient's affect is normal - Assessment and Plan (1) Small bowel obstruction Current Visit: Yes Status: Resolved Assessment and Plan: Status post exploratory laparotomy, lysis of adhesions, small bowel resection and right colectomy.. Surgery following. X-ray of the abdomen shows distended colon without any significant small bowel gas. Continue supportive care. On TPN. Nasogastric tube to low intermittent suction. Moderate risk for complications. Discussed discharge planning with case management. Plan for long-term acute care. Surgery planning for SBFT with gastrograffin studies. Will plan for discharge once cleared by surgery (2) SIRS (systemic inflammatory response syndrome) Current Visit: Yes Status: Acute Assessment and Plan: Leukocytosis persists but improving. Infectious disease consulted for recommendations. We will follow their recommendations. Patient does have reactive thrombocytopenia. Seen by ID who recommend holding antibiotics for now as leukocytosis may be reactive. Blood cultures on 05/21 are negative. Obtain swab of umbilical pus which has been sent. recent CT abdomen showed resolution of previous fluid collections . Wound cultures from umbilical swab grew enterococcus. Has received 2 days of IV vancomycin. Will continue to hold off antibiotics per ID recs (3) Acute respiratory failure with hypoxia Current Visit: Yes Status: Acute Assessment and Plan: Improved. On 1.5 L nasal cannula (4) Umbilical hernia Current Visit: Yes Status: Acute Assessment and Plan: Status post incisional hernia repair with mesh (5) COPD (chronic obstructive pulmonary disease) Current Visit: Yes Status: Chronic Assessment and Plan: Continue bronchodilators as needed. (6) NUNU (acute kidney injury) Current Visit: Yes Status: Resolved Assessment and Plan: resolved (7) Electrolyte imbalance Current Visit: Yes Status: Acute Assessment and Plan: We will replace intravenously with TPN (8) Protein calorie malnutrition Current Visit: Yes Status: Acute Assessment and Plan: Continue TPN (9) Essential hypertension Current Visit: Yes Status: Chronic Assessment and Plan: Well-controlled (10) Pneumonia Current Visit: Yes Status: Resolved Assessment and Plan: Completed antibiotic course. (11) Lung nodule seen on imaging study Current Visit: Yes Status: Chronic Assessment and Plan: Follow-up outpatient for further evaluation. Concern for malignancy (12) Gross hematuria Current Visit: Yes Status: Resolved Assessment and Plan: Improving. Acosta catheter in place. Avoiding heparin products. Urology following. Hemoglobin levels remain stable. (13) Hyponatremia Current Visit: Yes Status: Acute Assessment and Plan: Started on sodium tablets. Holding Iv fluids due to TPN volume DVT Prophylaxis: EPCDs. Avoiding medical anticoagulation due to episodes of hematuria - Time Spent with Patient Total time spent is greater than 50% in coordination of care (as documented) at patient's floor/unit and/or counseling patient: Internal Medicine: Result - Labs CBC & Chem 7: 05/25/18 04:58 05/25/18 04:58 Labs: Short CBC 05/25/18 Range/Units 04:58 WBC 12.2 H (4.3-11.1) K/mcL Hgb 8.0 L (12.9-16.9) g/dL Hct 23.7 L (37.5-50.1) % Plt Count 630 H (140-400) K/mcL Neutrophils # 8.8 (1.6-8.9) K/mcL BMP 05/25/18 04:58 Sodium 131 L Potassium 3.5 Chloride 92 L Carbon Dioxide 30 H BUN 26 H Creatinine 0.33 L Glucose 133 H Calcium 8.6 - ABG Interpretation ABG results: ABG ABG pH 7.52 pH Units (7.32-7.45) H 05/17/18 09:58 ABG pCO2 39 mmHg (35-45) 05/17/18 09:58 ABG pO2 62 mmHg (85-104) L 05/17/18 09:58 ABG O2 Saturation 94 % (95-98) L 05/17/18 09:58 PT/INR, D-dimer PT 16.0 Seconds (9.4-12.1) H 05/17/18 04:00 - VTE Documentation of Mechanical Device: Intermittent pneumatic compression device Consult Discharge Plan - Plan Referrals: Virgilio Sanchez MD [Primary Care Provider] - (Patient is from [facility]) Breanna Bess CNP [Advanced Practice Nurse] - (4) Umbilical hernia Qualifiers: Obstruction and gangrene presence: with obstruction but without gangrene Qualified Code(s): K42.0 - Umbilical hernia with obstruction, without gangrene (5) COPD (chronic obstructive pulmonary disease) Qualifiers: COPD type: chronic bronchitis Chronic bronchitis type: unspecified Qualified Code(s): J42 - Unspecified chronic bronchitis (8) Protein calorie malnutrition Qualifiers: Protein-calorie malnutrition severity: severe Qualified Code(s): E43 - Unspecified severe protein-calorie malnutrition (10) Pneumonia Qualifiers: Pneumonia type: due to unspecified organism Laterality: right Lung location : lower lobe of lung Qualified Code(s): J18.1 - Lobar pneumonia, unspecified organism
[2018-05-25] MEDS: Pantoprazole 40 MG VIAL IVP SCH (08:25)
[2018-05-25] MEDS: Furosemide 40 MG/4 ML VIAL IVP SCH ×3 (08:25→17:20)
--- NOTE | 2018-05-25 11:09 | Infectious Disease Progress No ---
Date of Encounter: 05/25/18 Time of Encounter: 08:45 - Assessment and Plan (1) Sepsis Current Visit: Yes Status: Acute Severe sepsis on admission: two SIRS criteria plus hypotension, NUNU, and lactic acidosis. Improved. NUNU and lactic acidosis resolved. Blood pressure stable. WBC trending down. Etiology of leukocytosis unclear, but likely reactive from ileus as no infectious source has been identified. The patient has been afebrile. Blood pressure has been stable. Blood cultures drawn 04/26/18 x2, 05/02/18 x 2, 05/06/18 x 2, 05/09/18 x 2 are all negative. Additional blood cultures drawn 05/21/18 are NGTD x 2 sets. Check LFTs, amylase, and lipase. --> alk phos elevated, but otherwise normal. Get CT of the chest, abdomen, and pelvis with IV and PO/NG contrast in the AM.-- > improvement/resolution of previously-noted fluid collections noted. Get swab cultures of the pus coming from the umbilicus.--> Enterococcus species. The patient received two days of IV Vanc and is improving clinically. Will hold further antibiotics for now until we get susceptibilities back. He does have a PICC line, but clinically does not appear infected. Continue to observe off antibiotics. If the patient becomes febrile, get blood cultures x 3 sets (1 from PICC and two peripheral) and re-start broad-spectrum antibiotics. Qualifiers: Sepsis type: sepsis due to unspecified organism Qualified Code(s): A41.9 - Sepsis, unspecified organism (2) Small bowel obstruction Current Visit: Yes Status: Resolved Likely secondary to umbilical hernia, which was reduced in the ER 04/26/18. Continued to have findings consistent with SBO/ileus. Status post robotic incisional hernia repair 04/28/[address] Bess. Again continued to have findings concerning for SBO/ileus and possible perforation on imaging. Status post exploratory lap with RYDER, SBR, and right colectomy 05/10/[address] Bess. Operative note reviewed. Enterotomies x 2 due to extensive adhesions. CT of the abdomen and pelvis 05/22/18 shows normal small bowel and colon. (3) Ileus, postoperative Current Visit: Yes Status: Acute Prolonged post-op ileus noted on serial abdominal x-rays. The patient did have bowel sounds and BM x 2 05/22/18, but none since. NGT remains in place. Hypoactive bowel sounds noted. SBFT with gastrograffin scheduled for today. Further management per the surgery team. (4) Incarcerated incisional hernia Current Visit: Yes Status: Acute Status post reduction in the ER 04/26/[address] Bess. Status post robotic incisional hernia repair with mesh 04/28/18. (5) NUNU (acute kidney injury) Current Visit: Yes Status: Resolved Likely secondary to sepsis and poor PO intake prior to admission. Resolved. (6) Lactic acidosis Current Visit: Yes Status: Resolved Likely secondary to sepsis. Resolved. (7) Hyponatremia Current Visit: No Status: Acute Improved. (8) Lung nodule Current Visit: Yes Status: Acute CT of the chest showed spiculated nodule in the right upper lobe highly suspicious for malignancy. Hem/Onc consulted with plans to PET/biopsy as an outpatient. (9) Acute anemia Current Visit: Yes Status: Acute Hgb down to 8 this morning. No acute bleeding noted on exam. Further workup and management per the primary team. (10) Acute respiratory failure with hypoxia Current Visit: Yes Status: Acute Likely secondary to large left pleural effusion. Resolved. (11) Pleural effusion Current Visit: Yes Status: Acute CXR 05/16/18 showed persistent bilateral pleural effusions with pulmonary vascular congestion. Status post left thoracentesis with 1000ml transudative fluid removed. Culture negative. Cytology negative for malignancy. Repeat CXR 05/18/18 showed worsening bibasilar atelectasis vs. PNA (likely atelectasis based on clinical picture) and increased right pleural effusion. Recommend pulmonology to evaluate for increased right pleural effusion. (12) Pneumonia Current Visit: Yes Status: Resolved CT of the chest 05/05 showed consolidative changes and atelectatic changes mostly in the right lower lobe consistent with PNA. Received 6 days of Rocephin and Flagyl. Qualifiers: Pneumonia type: due to unspecified organism Laterality: right Lung location: lower lobe of lung Qualified Code(s): J18.1 - Lobar pneumonia, unspecified organism (13) Hematuria Current Visit: Yes Status: Resolved Etiology unclear: trauma vs. malignancy vs. other. CT scan showed findings of bladder wall thickening. Urology consulted and recommendations noted. Appears resolved. Qualifiers: Hematuria type: unspecified type Qualified Code(s): R31.9 - Hematuria, unspecified (14) COPD (chronic obstructive pulmonary disease) Current Visit: Yes Status: Chronic Qualifiers: COPD type: chronic bronchitis Chronic bronchitis type: unspecified Qualified Code(s): J42 - Unspecified chronic bronchitis - Subjective Interval history: Patient seen and examined. No acute events noted overnight. Patient states overall he feels okay. He had some nausea yesterday after his CLD, NG tube was put back to [facility]. Denies fevers or chills or rigors. States he feels generally weak and has not been out of bed for the last couple of days. Denies chest pain or shortness of breath. Reports a chronic cough productive of white sputum. Denies nausea now or vomiting. Reports abdominal distention persists. Reports flatulence yesterday. Denies bowel movement since Tuesday. Acosta catheter remains patent. Denies oral thrush or new skin lesions. Infect Dis PN-Objective Data - Labs CBC & Chem 7: 05/25/18 04:58 05/25/18 04:58 Labs: Laboratory Results - last 24 hr 05/24/18 05/24/18 05/24/18 05:43 07:12 16:42 WBC RBC Hgb Hct MCV MCH MCHC RDW Plt Count MPV Immature Gran % Seg Neutrophils % Lymphocytes % Monocytes % Eosinophils % Basophils % Neutrophils # Lymphocytes # Monocytes # Eosinophils # Basophils # Sodium Potassium Chloride Carbon Dioxide BUN Creatinine Est GFR ( Amer) Est GFR (Non-Af Amer) BUN/Creatinine Ratio Glucose POC Glucose 140 H 157 H 127 H Calculated Osmolality Calcium Phosphorus Magnesium 05/25/18 05/25/18 04:58 04:58 WBC 12.2 H RBC 2.75 L Hgb 8.0 L Hct 23.7 L MCV 86.2 MCH 29.1 MCHC 33.8 RDW 15.3 H Plt Count 630 H MPV 10.0 Immature Gran % 1.8 Seg Neutrophils % 72.1 Lymphocytes % 9.4 Monocytes % 12.0 Eosinophils % 4.3 Basophils % 0.4 Neutrophils # 8.8 Lymphocytes # 1.2 Monocytes # 1.5 H Eosinophils # 0.5 Basophils # 0.1 Sodium 131 L Potassium 3.5 Chloride 92 L Carbon Dioxide 30 H BUN 26 H Creatinine 0.33 L Est GFR ( Amer) > 60 Est GFR (Non-Af Amer) > 60 BUN/Creatinine Ratio 79 H Glucose 133 H POC Glucose Calculated Osmolality 279 L Calcium 8.6 Phosphorus 4.0 Magnesium 2.1 Cultures: Cultures 05/22/18 18:15 Wound Culture - Preliminary Incision Enterococcus species 05/21/18 13:35 Blood Culture - Preliminary Central Venous Catheter Culture is incubating and being continuously monitored for growth. Final report to follow. 05/21/18 13:40 Blood Culture - Preliminary Peripheral Venipuncture Culture is incubating and being continuously monitored for growth. Final report to follow. 05/17/18 11:25 Body Fluid Culture - Final Pleural Fluid 05/09/18 13:50 Blood Culture - Final Peripheral Venipuncture No growth. Final report. 05/09/18 13:55 Blood Culture - Final Peripheral Venipuncture No growth. Final report. 05/06/18 12:23 Blood Culture - Final Peripheral Venipuncture No growth. Final report. 05/06/18 12:28 Blood Culture - Final Peripheral Venipuncture No growth. Final report. 05/02/18 09:50 Blood Culture - Final Peripheral Venipuncture No growth. Final report. 05/02/18 09:50 Blood Culture - Final Peripheral Venipuncture No growth. Final report. 04/26/18 21:30 Legionella Antigen - Final Urine,Clean Catch Serology 05/17/18 05/17/18 05/17/18 Range/Units 11:25 11:25 11:25 Urine Color (Yellow) Urine Clarity (Clear) Urine pH (5.0-8.0) pH Units Ur Specific Matheson (1.010-1.025) Urine Protein (Neg-Trace) mg/dL Urine Glucose (UA) (Normal) mg/dL Urine Ketones (Negative) mg/dL Urine Blood (Negative) Urine Nitrite (Negative) Urine Bilirubin (Negative) Urine Urobilinogen (Normal) mg/dL Ur Leukocyte Esterase (Negative) Urine Microscopic RBC (0-3) per hpf Urine Microscopic WBC (0-3) per hpf Ur Squamous Epith Cells (None-Few) per lpf Ur Renal Epithelial Cell (None-Few) per hpf Urine Bacteria (None-Few) per hpf Hyaline Casts (None-Few) per lpf Granular Casts (None Seen) per lpf Urine Mucus (Few) Urine Yeast (None Seen) per hpf Ur Culture Indicated? (NO) Urine Creatinine mg/dL Urine Sodium mEq/L Pleural Fluid Volume 800.0 mL Pleural Appearance Clear (Clear) Pleural pH 8.00 (No Ref Range) pH Units Pleural RBC < 0.002 (0.000 - 0.002) M/mcL Pleural Tot Nuc Cell 47 (0-1000) TNC/mcL Pleural Neutrophils 61.0 % Pleural Lymphocytes % 27.0 % Pleural Monocytes % 6.0 % Pleural Other Cells % 6.0 % Pleural Total Protein (No Ref Range) g/dL Pleural LDH (No Ref Range) Units/L Pleural Glucose 146 (No Ref Range) mg/dL Pleural Amylase < 10 (No Ref Range) Units/L Pleural Cholesterol [employer] Nasal Screen MRSA (PCR) (Negative) Chlamy pneumoniae PCR (Not Detect) Adenovirus (PCR) (Not Detect) B. pertussis DNA (PCR) (Not Detect) B.parapertussis DNA PCR (Not Detect) Coronavirus OC43 (PCR) (Not Detect) Coronavirus HKU1 (PCR) (Not Detect) Coronavirus 229E (PCR) (Not Detect) Coronavirus NL63 (PCR) (Not Detect) Human Metapneumovir PCR (Not Detect) Influenza A (H1) PCR (Not Detect) Influ A (H1N1/09) PCR (Not Detect) Influenza A (H3) PCR (Not Detect) Influenza A Untype (PCR) (Not Detect) Influenza Type B (PCR) (Not Detect) M.pneumoniae DNA (PCR) (Not Detect) Parainfluenza 1 (PCR) (Not Detect) Parainfluenza 2 (PCR) (Not Detect) Parainfluenza 3 (PCR) (Not Detect) Parainfluenza 4 (PCR) (Not Detect) RSV (PCR) (Not Detect) Entero/Rhino (PCR) (Not Detect) 05/17/18 05/15/18 05/15/18 Range/Units 11:25 22:48 21:33 Urine Color Red A (Yellow) Urine Clarity Turbid A (Clear) Urine pH 6.0 (5.0-8.0) pH Units Ur Specific Mat[place]on 1.015 (1.010-1.025) Urine Protein 100 H (Neg-Trace) mg/dL Urine Glucose (UA) Normal (Normal) mg/dL Urine Ketones Trace H (Negative) mg/dL Urine Blood Large H (Negative) Urine Nitrite Negative (Negative) Urine Bilirubin Moderate H (Negative) Urine Urobilinogen Normal (Normal) mg/dL Ur Leukocyte Esterase Small H (Negative) Urine Microscopic RBC TNTC H (0-3) per hpf Urine Microscopic WBC 30-50 H (0-3) per hpf Ur Squamous Epith Cells Many H (None-Few) per lpf Ur Renal Epithelial Cell (None-Few) per hpf Urine Bacteria None Seen (None-Few) per hpf Hyaline Casts None Seen (None-Few) per lpf Granular Casts (None Seen) per lpf Urine Mucus (Few) Urine Yeast (None Seen) per hpf Ur Culture Indicated? NO. A (NO) Urine Creatinine mg/dL Urine Sodium mEq/L Pleural Fluid Volume mL Pleural Appearance (Clear) Pleural pH (No Ref Range) pH Units Pleural RBC (0.000 - 0.002) M/mcL Pleural Tot Nuc Cell (0-1000) TNC/mcL Pleural Neutrophils % Pleural Lymphocytes % % Pleural Monocytes % % Pleural Other Cells % % Pleural Total Protein < 3.0 (No Ref Range) g/dL Pleural LDH 63 (No Ref Range) Units/L Pleural Glucose (No Ref Range) mg/dL Pleural Amylase (No Ref Range) Units/L Pleural Cholesterol Nasal Screen MRSA (PCR) Negative (Negative) Chlamy pneumoniae PCR (Not Detect) Adenovirus (PCR) (Not Detect) B. pertussis DNA (PCR) (Not Detect) B.parapertussis DNA PCR (Not Detect) Coronavirus OC43 (PCR) (Not Detect) Coronavirus HKU1 (PCR) (Not Detect) Coronavirus 229E (PCR) (Not Detect) Coronavirus NL63 (PCR) (Not Detect) Human Metapneumovir PCR (Not Detect) Influenza A (H1) PCR (Not Detect) Influ A (H1N1/09) PCR (Not Detect) Influenza A (H3) PCR (Not Detect) Influenza A Untype (PCR) (Not Detect) Influenza Type B (PCR) (Not Detect) M.pneumoniae DNA (PCR) (Not Detect) Parainfluenza 1 (PCR) (Not Detect) Parainfluenza 2 (PCR) (Not Detect) Parainfluenza 3 (PCR) (Not Detect) Parainfluenza 4 (PCR) (Not Detect) RSV (PCR) (Not Detect) Entero/Rhino (PCR) (Not Detect) 05/02/18 04/27/18 04/26/18 Range/Units 18:00 04:22 21:30 Urine Color Dark Yellow (Yellow) Urine Clarity Clear (Clear) Urine pH 7.0 (5.0-8.0) pH Units Ur Specific Matheson 1.025 (1.010-1.025) Urine Protein 30 H (Neg-Trace) mg/dL Urine Glucose (UA) Normal (Normal) mg/dL Urine Ketones 15 H (Negative) mg/dL Urine Blood Negative (Negative) Urine Nitrite Positive A (Negative) Urine Bilirubin Small H (Negative) Urine Urobilinogen Normal (Normal) mg/dL Ur Leukocyte Esterase Trace H (Negative) Urine Microscopic RBC 0-3 (0-3) per hpf Urine Microscopic WBC 0-3 (0-3) per hpf Ur Squamous Epith Cells Many H (None-Few) per lpf Ur Renal Epithelial Cell (None-Few) per hpf Urine Bacteria None Seen (None-Few) per hpf Hyaline Casts None Seen (None-Few) per lpf Granular Casts (None Seen) per lpf Urine Mucus (Few) Urine Yeast (None Seen) per hpf Ur Culture Indicated? NO. A (NO) Urine Creatinine 137 mg/dL Urine Sodium 23.7 mEq/L Pleural Fluid Volume mL Pleural Appearance (Clear) Pleural pH (No Ref Range) pH Units Pleural RBC (0.000 - 0.002) M/mcL Pleural Tot Nuc Cell (0-1000) TNC/mcL Pleural Neutrophils % Pleural Lymphocytes % % Pleural Monocytes % % Pleural Other Cells % % Pleural Total Protein (No Ref Range) g/dL Pleural LDH (No Ref Range) Units/L Pleural Glucose (No Ref Range) mg/dL Pleural Amylase (No Ref Range) Units/L Pleural Cholesterol Nasal Screen MRSA (PCR) (Negative) Chlamy pneumoniae PCR Not Detected (Not Detect) Adenovirus (PCR) Not Detected (Not Detect) B. pertussis DNA (PCR) Not Detected (Not Detect) B.parapertussis DNA PCR Not Detected (Not Detect) Coronavirus OC43 (PCR) Not Detected (Not Detect) Coronavirus HKU1 (PCR) Not Detected (Not Detect) Coronavirus 229E (PCR) Not Detected (Not Detect) Coronavirus NL63 (PCR) Not Detected (Not Detect) Human Metapneumovir PCR Not Detected (Not Detect) Influenza A (H1) PCR Not Detected (Not Detect) Influ A (H1N1/09) PCR Not Detected (Not Detect) Influenza A (H3) PCR Not Detected (Not Detect) Influenza A Untype (PCR) Not Detected (Not Detect) Influenza Type B (PCR) Not Detected (Not Detect) M.pneumoniae DNA (PCR) Not Detected (Not Detect) Parainfluenza 1 (PCR) Not Detected (Not Detect) Parainfluenza 2 (PCR) Not Detected (Not Detect) Parainfluenza 3 (PCR) Not Detected (Not Detect) Parainfluenza 4 (PCR) Not Detected (Not Detect) RSV (PCR) Not Detected (Not Detect) Entero/Rhino (PCR) Not Detected (Not Detect) 04/26/18 Range/Units 21:30 Urine Color Dark Yellow (Yellow) Urine Clarity Turbid A (Clear) Urine pH 5.5 (5.0-8.0) pH Units Ur Specific Matheson 1.022 (1.010-1.025) Urine Protein 100 H (Neg-Trace) mg/dL Urine Glucose (UA) Normal (Normal) mg/dL Urine Ketones Trace H (Negative) mg/dL Urine Blood Small H (Negative) Urine Nitrite Negative (Negative) Urine Bilirubin Moderate H (Negative) Urine Urobilinogen Normal (Normal) mg/dL Ur Leukocyte Esterase Trace H (Negative) Urine Microscopic RBC 0-3 (0-3) per hpf Urine Microscopic WBC 5-15 H (0-3) per hpf Ur Squamous Epith Cells Many H (None-Few) per lpf Ur Renal Epithelial Cell Few (None-Few) per hpf Urine Bacteria Moderate H (None-Few) per hpf Hyaline Casts Few (None-Few) per lpf Granular Casts Few H (None Seen) per lpf Urine Mucus Many H (Few) Urine Yeast Many H (None Seen) per hpf Ur Culture Indicated? NO (NO) Urine Creatinine mg/dL Urine Sodium mEq/L Pleural Fluid Volume mL Pleural Appearance (Clear) Pleural pH (No Ref Range) pH Units Pleural RBC (0.000 - 0.002) M/mcL Pleural Tot Nuc Cell (0-1000) TNC/mcL Pleural Neutrophils % Pleural Lymphocytes % % Pleural Monocytes % % Pleural Other Cells % % Pleural Total Protein (No Ref Range) g/dL Pleural LDH (No Ref Range) Units/L Pleural Glucose (No Ref Range) mg/dL Pleural Amylase (No Ref Range) Units/L Pleural Cholesterol Nasal Screen MRSA (PCR) (Negative) Chlamy pneumoniae PCR (Not Detect) Adenovirus (PCR) (Not Detect) B. pertussis DNA (PCR) (Not Detect) B.parapertussis DNA PCR (Not Detect) Coronavirus OC43 (PCR) (Not Detect) Coronavirus HKU1 (PCR) (Not Detect) Coronavirus 229E (PCR) (Not Detect) Coronavirus NL63 (PCR) (Not Detect) Human Metapneumovir PCR (Not Detect) Influenza A (H1) PCR (Not Detect) Influ A (H1N1/09) PCR (Not Detect) Influenza A (H3) PCR (Not Detect) Influenza A Untype (PCR) (Not Detect) Influenza Type B (PCR) (Not Detect) M.pneumoniae DNA (PCR) (Not Detect) Parainfluenza 1 (PCR) (Not Detect) Parainfluenza 2 (PCR) (Not Detect) Parainfluenza 3 (PCR) (Not Detect) Parainfluenza 4 (PCR) (Not Detect) RSV (PCR) (Not Detect) Entero/Rhino (PCR) (Not Detect) Exam - Constitutional Vitals: Temp Pulse Resp BP Pulse Ox 97.5 F L 84 18 115/56 98 05/25/18 07:09 05/25/18 07:09 05/25/18 07:17 05/25/18 07:09 05/25/18 07:17 General appearance: average body habitus, cooperative, no acute distress - Head Head exam: Present: atraumatic, normal inspection, normocephalic - Eye Eye exam: Present: EOMI, normal appearance, PERRL Pupils: Present: normal accommodation - ENT ENT exam: Present: mucous membranes dry - Neck Neck exam: Present: normal inspection - Respiratory Respiratory exam: Present: CTAB. Absent: rales, respiratory distress, rhonchi, wheezes - Cardiovascular Cardiovascular exam: Present: RRR, +S1, +S2 - GI/Abdominal GI/Abdominal exam: Present: distended, firm, hypoactive bowel sounds, tenderness (generalized) Additional comments: NGT to LIWS with light green gastric contents noted in the canister. Midline abdominal dressing with small amount of shadow drainage. Acosta catheter noted to be draining clear yellow urine. - Extremities Exam Extremities exam: Present: normal inspection. Absent: joint swelling, pedal edema, tenderness - Neurological Exam Neurological exam: Present: alert, oriented X3, no focal deficits - Psychiatric Psychiatric exam: Present: normal affect, normal mood - Skin Skin exam: Present: dry, intact, normal color, warm - Additional findings Additional findings: PICC line noted to the RUE with transparent dressing C/D/I. No erythema, warmth , or drainage noted. - VTE Documentation of Mechanical Device: Intermittent pneumatic compression device Consult Discharge Plan - Plan Referrals: Virgilio Sanchez MD [Primary Care Provider] - (Patient is from [facility]) Breanna Bess CNP [Advanced Practice Nurse] - - Attending Attestation I examined this patient and my medical decision-making was reviewed with the sania doll CNP. I agree with the documented findings, disposition and treatment plan as described except to the extent set forth below.
--- NOTE | 2018-05-25 14:42 | General Surgery Progress Note ---
Date of Encounter: 05/25/18 Time of Encounter: 14:15 - Assessment and Plan (1) Small bowel obstruction Current Visit: Yes Status: Resolved POD #15 Exploratory laparotomy with lysis of adhesions 45 minutes, Small bowel resection due to adhesio lysis, Right colectomy with Dr. Bess NPO NG clamped for SBFT Complete SBFT with gastrograffin today TPN for nutritional support Supportive care and pain control IS every 1 hour while awake Out of bed to chair TID with assistance Daily wound care- packing Surgery will continue to follow for mangement of NG, diet, wound care (2) Incarcerated incisional hernia Current Visit: Yes Status: Acute POD #27 from an open incisional hernia repair with mesh with Dr. Bess. Supportive care and pain control Daily wound care IS every 1 hour while awake Out of bed to chair TID with assistance Surgery will continue to follow (3) Ileus, postoperative Current Visit: Yes Status: Acute NPO NG clamped for SBFT Complete SBFT today TPN for nutritional support Continue reglan (4) Bilateral pleural effusion Current Visit: Yes Status: Acute S/P drainage of left pleural effusion per pulmonary/critical care team 05/17/18 Continue to monitor and provide supportive care IS every 1 hour while awake Pulmonary toilet (5) COPD (chronic obstructive pulmonary disease) Current Visit: Yes Status: Chronic Management per pulmonary team IS every 1 hour while awake Pulmonary toilet Qualifiers: COPD type: chronic bronchitis Chronic bronchitis type: unspecified Qualified Code(s): J42 - Unspecified chronic bronchitis (6) Pneumonia Current Visit: Yes Status: Resolved Management per medicine team Antibiotics de-escalated 05/18/18 Qualifiers: Pneumonia type: due to unspecified organism Laterality: right Lung location: lower lobe of lung Qualified Code(s): J18.1 - Lobar pneumonia, unspecified organism (7) Gross hematuria Current Visit: Yes Status: Resolved Improved Crocker catheter to SD with CBI (8) Lung nodule seen on imaging study Current Visit: Yes Status: Chronic Patient with need further imaging as outpatient- PET scan Outpatient appointment with oncology- Dr. Richard for further work-up (9) DVT prophylaxis Current Visit: Yes Status: Acute Hold heparin due to hematuria EPCDs to bilateral lower extremties for DVT prophylaxis Out of bed to chair TID with assistance Subjective Patient reports: no new complaints, feels better, still having pain, pain is less, flatus, bowel movement (X2 this morning), afebrile Objective Vital Signs - Last 8 Hours Temp Pulse Resp BP Pulse Ox 05/25/18 11:42 97.7 F 94 17 113/62 93 05/25/18 11:11 18 97 05/25/18 07:17 18 98 05/25/18 07:09 97.5 F L 84 17 115/56 96 Intake and Output 05/24/18 05/25/18 05/25/18 23:59 07:59 15:59 Output Total 650 / 650 250 / 250 825 / 825 Balance -650 / -650 -250 / -250 -825 / -825 Output: Urine 550 / 550 Catheter 650 / 650 250 / 250 Gastric Drainage 275 / 275 R Nares 275 / 275 Other: Stool Size Moderate Stool Consistency liquid Stool Color Brown Blood Glucose* 132 145 137 - General physical appearance well developed, no distress, chronically ill - Eyes normal ocular movement - ENT normal mucosa, atraumatic, normocephalic - Neck Neck exam: trachea midline - Respiratory normal respiratory effort, clear to auscultation, other (diminished bibasilar bases) - Cardiovascular Cardiovascular exam: Present: RRR - Abdomen Abdomen: Present: bowel sounds present, soft, tender (improving), wound (NG tube clamped) - Genitourinary other (crocker catheter to SD) - Neurologic CN 2-12 grossly intact - Musculoskeletal other (physical deconditioning) - Psychiatric oriented to time, oriented to person, oriented to place, speech is normal, memory intact - Labs 05/25/18 04:58 05/25/18 04:58 Diabetes panel 05/25/18 Range/Units 04:58 Sodium 131 L (136-145) mEq/L Potassium 3.5 (3.5-5.1) mEq/L Chloride 92 L (98-107) mEq/L Carbon Dioxide 30 H (23-29) mEq/L BUN 26 H (8-23) mg/dL Creatinine 0.33 L (0.70-1.30) mg/dL Glucose 133 H (70-105) mg/dL Calcium 8.6 (8.6-10.3) mg/dL Calcium panel 05/25/18 Range/Units 04:58 Calcium 8.6 (8.6-10.3) mg/dL Phosphorus 4.0 (2.7-4.5) mg/dL Pituitary panel 05/25/18 Range/Units 04:58 Sodium 131 L (136-145) mEq/L Potassium 3.5 (3.5-5.1) mEq/L Chloride 92 L (98-107) mEq/L Carbon Dioxide 30 H (23-29) mEq/L BUN 26 H (8-23) mg/dL Creatinine 0.33 L (0.70-1.30) mg/dL Glucose 133 H (70-105) mg/dL Calcium 8.6 (8.6-10.3) mg/dL Adrenal panel 05/25/18 Range/Units 04:58 Sodium 131 L (136-145) mEq/L Potassium 3.5 (3.5-5.1) mEq/L Chloride 92 L (98-107) mEq/L Carbon Dioxide 30 H (23-29) mEq/L BUN 26 H (8-23) mg/dL Creatinine 0.33 L (0.70-1.30) mg/dL Glucose 133 H (70-105) mg/dL Calcium 8.6 (8.6-10.3) mg/dL - VTE Documentation of Mechanical Device: Intermittent pneumatic compression device Consult Discharge Plan - Plan Referrals: Virgilio Sanchez MD [Primary Care Provider] - (Patient is from [facility]) Breanna Bess CNP [Advanced Practice Nurse] -
[2018-05-25] MEDS: *HR* Alteplase (Cathflo) 2 MG VIAL IVP PRN ×2 (15:16→15:25)
[2018-05-25] MEDS: OXYCODONE Oral CONC 10 MG/0.5 ML ORAL.SYG SL PRN (15:37)
[2018-05-25] MEDS ORDERED: Clinimix E 5%-20% SOLUTION 2,000 ML with MVI, adult with vitamin K 10 ML, Trace Eleme... IVC SCH (17:00)
[2018-05-26 04:01] LABS: Basophils # 0.1 K/mcL (0.0-0.2); Basophils % 0.4 %; Eosinophils # 0.5 K/mcL (0.0-0.6); Eosinophils % 4.1 %; Hematocrit 24.7 % (37.5-50.1); Hemoglobin 8.3 g/dL (12.9-16.9); Immature Granulocytes % 1.6 % (0-4); Lymphocytes # 1.4 K/mcL (0.6-4.6); Lymphocytes % 11.5 %; Mean Corpuscular HGB Conc 33.6 g/dL (31.6-35.5); Mean Corpuscular Hemoglobin 29.9 pg (28.0-33.3); Mean Corpuscular Volume 88.8 fL (83.0-100.0); Monocytes # 1.5 K/mcL (0.0-1.3); Monocytes % 12.3 %; Neutrophils # 8.3 K/mcL (1.6-8.9); Platelet Count 610 K/mcL (140-400); Red Blood Count 2.78 M/mcL (4.19-5.50); Segmented Neutrophils % 70.1 %
[2018-05-26] MEDS: Ipratropium/Albuterol Neb 3 ML IH SCH ×4 (04:04→16:39)
[2018-05-26 04:24] LABS: BUN/Creatinine Ratio 88 (6-26); Blood Urea Nitrogen 30 mg/dL (8-23); Calcium 8.7 mg/dL (8.6-10.3); Carbon Dioxide 28 mEq/L (23-29); Chloride 95 mEq/L (98-107); Glucose 125 mg/dL (70-105); Magnesium 2.1 mg/dL (1.6-2.6); Osmolality,Calculated 284 (280-300); Phosphorous 4.6 mg/dL (2.7-4.5); Potassium 3.5 mEq/L (3.5-5.1); Sodium 133 mEq/L (136-145); eGFR For Non-African Americans > 60 (> 60)
[2018-05-26] MEDS: Metoclopramide 10 MG/2 ML VIAL IVP SCH ×2 (04:55→11:47)
[2018-05-26] MEDS: *HR* Metoprolol 5 MG/5 ML VIAL IVP SCH ×2 (04:55→11:47)
--- NOTE | 2018-05-26 08:01 | Internal Med Progress Note ---
Hospitalist Progress Note - Encounter Date of Encounter: 05/26/18 Time of Encounter: 08:00 - Subjective Interval History: No acute events overnight - Exam Vitals: Temp Pulse Resp BP Pulse Ox 98.4 F 98 17 123/65 94 05/26/18 07:05 05/26/18 07:05 05/26/18 07:05 05/26/18 07:05 05/26/18 07:05 Exam: General: Patient is alert, no acute distress, oriented x 3 Head: atraumatic, normocephalic, Eye: normal appearance, PERRL, no scleral icterus, no conjunctival injection Neck: normal inspection, trachea midline, full ROM, no carotid bruits Chest: normal inspection, symmetric chest rise Respiratory: Decreased breath sounds at both bases Cardiovascular: Regular rate and rhythm. s1 and s2 No clicks, rubs, gallops, or murmurs. No pedal edema Abdomen: Abdomen is distended. Bowel sounds are present. NG tube in place Musculoskeletal: Spontaneously moving all extremities Skin: warm, dry, intact. Neuro: Alert oriented x 3 normal cranial nerves, no focal deficits Psych: Patient's affect is normal - Assessment and Plan (1) Small bowel obstruction Current Visit: Yes Status: Resolved Assessment and Plan: Status post exploratory laparotomy, lysis of adhesions, small bowel resection and right colectomy.. Surgery following. Continue supportive care. On TPN. Nasogastric tube to low intermittent suction. Moderate risk for complications. Discussed discharge planning with case management. Plan for long-term acute care. 05/26 SBFT per surgical team showed ileus. Continue management per surgery. Plan for discharge once stable from a surgical standpoint (2) SIRS (systemic inflammatory response syndrome) Current Visit: Yes Status: Acute Assessment and Plan: Leukocytosis persists but improving. Infectious disease consulted for recommendations. We will follow their recommendations. Patient does have reactive thrombocytopenia. Seen by ID who recommend holding antibiotics for now as leukocytosis may be reactive. Blood cultures on 05/21 are negative. Obtain swab of umbilical pus which has been sent. recent CT abdomen showed resolution of previous fluid collections . Wound cultures from umbilical swab grew enterococcus. Has received 2 days of IV vancomycin. Will continue to hold off antibiotics per ID recs (3) Acute respiratory failure with hypoxia Current Visit: Yes Status: Acute Assessment and Plan: Improved. On 1.5 L nasal cannula (4) Umbilical hernia Current Visit: Yes Status: Acute Assessment and Plan: Status post incisional hernia repair with mesh. Patient continues to have an ileus (5) COPD (chronic obstructive pulmonary disease) Current Visit: Yes Status: Chronic Assessment and Plan: Continue bronchodilators as needed. (6) NUNU (acute kidney injury) Current Visit: Yes Status: Resolved Assessment and Plan: resolved (7) Electrolyte imbalance Current Visit: Yes Status: Acute Assessment and Plan: We will replace intravenously with TPN (8) Protein calorie malnutrition Current Visit: Yes Status: Acute Assessment and Plan: Continue TPN (9) Essential hypertension Current Visit: Yes Status: Chronic Assessment and Plan: Well-controlled (10) Pneumonia Current Visit: Yes Status: Resolved Assessment and Plan: Completed antibiotic course. (11) Lung nodule seen on imaging study Current Visit: Yes Status: Chronic Assessment and Plan: Follow-up outpatient for further evaluation. Concern for malignancy (12) Gross hematuria Current Visit: Yes Status: Resolved Assessment and Plan: Improving. Acosta catheter in place. Avoiding heparin products. Urology following. Hemoglobin levels remain stable. (13) Hyponatremia Current Visit: Yes Status: Acute Assessment and Plan: Started on sodium tablets. Holding Iv fluids due to TPN volume DVT Prophylaxis: EPCDs. Avoiding medical anticoagulation due to episodes of hematuria - Time Spent with Patient Total time spent is greater than 50% in coordination of care (as documented) at patient's floor/unit and/or counseling patient: Internal Medicine: Result - Labs CBC & Chem 7: 05/26/18 03:34 05/26/18 03:34 Labs: Short CBC 05/26/18 Range/Units 03:34 WBC 11.9 H (4.3-11.1) K/mcL Hgb 8.3 L (12.9-16.9) g/dL Hct 24.7 L (37.5-50.1) % Plt Count 610 H (140-400) K/mcL Neutrophils # 8.3 (1.6-8.9) K/mcL BMP 05/26/18 03:34 Sodium 133 L Potassium 3.5 Chloride 95 L Carbon Dioxide 28 BUN 30 H Creatinine 0.34 L Glucose 125 H Calcium 8.7 - ABG Interpretation ABG results: ABG ABG pH 7.52 pH Units (7.32-7.45) H 05/17/18 09:58 ABG pCO2 39 mmHg (35-45) 05/17/18 09:58 ABG pO2 62 mmHg (85-104) L 05/17/18 09:58 ABG O2 Saturation 94 % (95-98) L 05/17/18 09:58 PT/INR, D-dimer PT 16.0 Seconds (9.4-12.1) H 05/17/18 04:00 - Impressions Impressions Small Bowel X-Ray 05/25/18 08:00 IMPRESSION: Findings consistent with ileus D/ / James Cutler MD / James Cutler MD Interpreting Provider: James Cutler MD - VTE Documentation of Mechanical Device: Intermittent pneumatic compression device Consult Discharge Plan - Plan Referrals: Virgilio Sanchez MD [Primary Care Provider] - (Patient is from [facility]) Breanna Bess CNP [Advanced Practice Nurse] - (4) Umbilical hernia Qualifiers: Obstruction and gangrene presence: with obstruction but without gangrene Qualified Code(s): K42.0 - Umbilical hernia with obstruction, without gangrene (5) COPD (chronic obstructive pulmonary disease) Qualifiers: COPD type: chronic bronchitis Chronic bronchitis type: unspecified Qualified Code(s): J42 - Unspecified chronic bronchitis (8) Protein calorie malnutrition Qualifiers: Protein-calorie malnutrition severity: severe Qualified Code(s): E43 - Unspecified severe protein-calorie malnutrition (10) Pneumonia Qualifiers: Pneumonia type: due to unspecified organism Laterality: right Lung location : lower lobe of lung Qualified Code(s): J18.1 - Lobar pneumonia, unspecified organism
[2018-05-26] MEDS: Pantoprazole 40 MG VIAL IVP SCH (08:47)
[2018-05-26] MEDS: Furosemide 40 MG/4 ML VIAL IVP SCH ×2 (08:47→11:47)
--- NOTE | 2018-05-26 09:47 | General Surgery Progress Note ---
Date of Encounter: 05/26/18 Time of Encounter: 09:30 - Assessment and Plan (1) Small bowel obstruction Current Visit: Yes Status: Resolved POD #16 Exploratory laparotomy with lysis of adhesions 45 minutes, Small bowel resection due to adhesio lysis, Right colectomy with Dr. Bess Trial clear liquids today with protein supplements NG removal pending acute abdominal series this morning Complete SBFT- shows movement of contrast into the colon after 4 hours, dilated SB and colon consistent with ileus TPN for nutritional support Supportive care and pain control IS every 1 hour while awake Out of bed to chair TID with assistance Daily wound care- packing Surgery will continue to follow for mangement of NG, diet, wound care (2) Incarcerated incisional hernia Current Visit: Yes Status: Acute POD #28 from an open incisional hernia repair with mesh with Dr. Bess. Supportive care and pain control Daily wound care IS every 1 hour while awake Out of bed to chair TID with assistance Surgery will continue to follow (3) Ileus, postoperative Current Visit: Yes Status: Acute Trial clear liquids today with protein supplements NG removal pending acute abdominal series TPN for nutritional support Continue reglan (4) Bilateral pleural effusion Current Visit: Yes Status: Acute S/P drainage of left pleural effusion per pulmonary/critical care team 05/17/18 Continue to monitor and provide supportive care IS every 1 hour while awake Pulmonary toilet (5) COPD (chronic obstructive pulmonary disease) Current Visit: Yes Status: Chronic Management per pulmonary team IS every 1 hour while awake Pulmonary toilet Qualifiers: COPD type: chronic bronchitis Chronic bronchitis type: unspecified Qualified Code(s): J42 - Unspecified chronic bronchitis (6) Gross hematuria Current Visit: Yes Status: Resolved Improved Crocker catheter to SD with CBI (7) Lung nodule seen on imaging study Current Visit: Yes Status: Chronic Patient with need further imaging as outpatient- PET scan Outpatient appointment with oncology- Dr. Richard for further work-up (8) DVT prophylaxis Current Visit: Yes Status: Acute Hold heparin due to hematuria EPCDs to bilateral lower extremties for DVT prophylaxis Out of bed to chair TID with assistance Subjective Patient reports: no new complaints, still having pain, pain is less, flatus ( small amount), bowel movement (Patient reports 2 bowel movements after start of SBFT yesterday), afebrile Objective Vital Signs - Last 8 Hours Temp Pulse Resp BP Pulse Ox 05/26/18 07:05 98.4 F 98 17 123/65 94 05/26/18 04:30 98.8 F 105 17 136/71 92 05/26/18 04:04 16 93 Intake and Output 05/25/18 05/26/18 05/26/18 23:59 07:59 15:59 Intake Total 250 / 250 Output Total 450 / 450 350 / 350 Balance -450 / -450 -100 / -100 Intake: IV Fluids 250 / 250 Intralipid 20% 250 ML @ 21 mls/ 250 / 250 hr IVPB DAILY@1700 [facility] Rx#: [id number] Output: Catheter 450 / 450 350 / 350 Other: Meal NPO Stool Size Moderate Stool Consistency liquid Stool Color Brown # Bowel Movements 3 Blood Glucose* 121 137 - General physical appearance well developed, no distress, chronically ill - Eyes normal ocular movement - ENT normal mucosa, atraumatic, normocephalic - Neck Neck exam: trachea midline - Respiratory normal respiratory effort, clear to auscultation, other (diminished bibasilar bases) - Cardiovascular Cardiovascular exam: Present: RRR - Abdomen Abdomen: Present: bowel sounds present, soft, distended, tender (minimal around incision), wound (NG to gravity drain with no output noted over night) - Incision Incision: Present: open (Midline incision with 2 open areas noted with moderate amount of serous drainage, no surrounding erythema or induration) - Genitourinary other (crocker catheter to SD with clear yellow urine noted) - Neurologic CN 2-12 grossly intact - Musculoskeletal other (physical deconditioning noted) - Psychiatric oriented to time, oriented to person, oriented to place, speech is normal, memory intact - Labs 05/26/18 03:34 05/26/18 03:34 Diabetes panel 05/26/18 Range/Units 03:34 Sodium 133 L (136-145) mEq/L Potassium 3.5 (3.5-5.1) mEq/L Chloride 95 L (98-107) mEq/L Carbon Dioxide 28 (23-29) mEq/L BUN 30 H (8-23) mg/dL Creatinine 0.34 L (0.70-1.30) mg/dL Glucose 125 H (70-105) mg/dL Calcium 8.7 (8.6-10.3) mg/dL Calcium panel 05/26/18 05/26/18 Range/Units 03:34 03:34 Calcium 8.7 (8.6-10.3) mg/dL Phosphorus 4.6 H (2.7-4.5) mg/dL Pituitary panel 05/26/18 Range/Units 03:34 Sodium 133 L (136-145) mEq/L Potassium 3.5 (3.5-5.1) mEq/L Chloride 95 L (98-107) mEq/L Carbon Dioxide 28 (23-29) mEq/L BUN 30 H (8-23) mg/dL Creatinine 0.34 L (0.70-1.30) mg/dL Glucose 125 H (70-105) mg/dL Calcium 8.7 (8.6-10.3) mg/dL Adrenal panel 05/26/18 Range/Units 03:34 Sodium 133 L (136-145) mEq/L Potassium 3.5 (3.5-5.1) mEq/L Chloride 95 L (98-107) mEq/L Carbon Dioxide 28 (23-29) mEq/L BUN 30 H (8-23) mg/dL Creatinine 0.34 L (0.70-1.30) mg/dL Glucose 125 H (70-105) mg/dL Calcium 8.7 (8.6-10.3) mg/dL - VTE Documentation of Mechanical Device: Intermittent pneumatic compression device Consult Discharge Plan - Plan Referrals: Virgilio Sanchez MD [Primary Care Provider] - (Patient is from [facility]) Breanna Bess CNP [Advanced Practice Nurse] - - Attending Attestation For this encounter, I have reviewed the [employer] or PA documentation, treatment plan, and medical decision making; and I have had face to face time with this patient.
--- NOTE | 2018-05-26 14:17 | Infectious Disease Progress No ---
Date of Encounter: 05/26/18 Time of Encounter: 14:16 - Assessment and Plan (1) Sepsis Current Visit: Yes Status: Acute Severe sepsis on admission: two SIRS criteria plus hypotension, NUNU, and lactic acidosis. Improved. NUNU and lactic acidosis resolved. Blood pressure stable. WBC trending down. Etiology of leukocytosis unclear, but likely reactive from ileus as no infectious source has been identified. The patient has been afebrile. Blood pressure has been stable. Blood cultures drawn 04/26/18 x2, 05/02/18 x 2, 05/06/18 x 2, 05/09/18 x 2 are all negative. Additional blood cultures drawn 05/21/18 are NGTD x 2 sets. Check LFTs, amylase, and lipase. --> alk phos elevated, but otherwise normal. Get CT of the chest, abdomen, and pelvis with IV and PO/NG contrast in the AM.-- > improvement/resolution of previously-noted fluid collections noted. Get swab cultures of the pus coming from the umbilicus.--> Enterococcus species. The patient received two days of IV Vanc and is improving clinically. Will hold further antibiotics for now until we get susceptibilities back. He does have a PICC line, but clinically does not appear infected. Continue to observe off antibiotics. If the patient becomes febrile, get blood cultures x 3 sets (1 from PICC and two peripheral) and re-start broad-spectrum antibiotics. Qualifiers: Sepsis type: sepsis due to unspecified organism Qualified Code(s): A41.9 - Sepsis, unspecified organism (2) Small bowel obstruction Current Visit: Yes Status: Resolved Likely secondary to umbilical hernia, which was reduced in the ER 04/26/18. Continued to have findings consistent with SBO/ileus. Status post robotic incisional hernia repair 04/28/[address] Bess. Again continued to have findings concerning for SBO/ileus and possible perforation on imaging. Status post exploratory lap with RYDER, SBR, and right colectomy 05/10/[address] Bess. Operative note reviewed. Enterotomies x 2 due to extensive adhesions. CT of the abdomen and pelvis 05/22/18 shows normal small bowel and colon. (3) Ileus, postoperative Current Visit: Yes Status: Acute Prolonged post-op ileus noted on serial abdominal x-rays. The patient did have bowel sounds and BM x 2 05/22/18, but none since. NGT remains in place. Hypoactive bowel sounds noted. SBFT with gastrograffin scheduled for today. Further management per the surgery team. (4) Incarcerated incisional hernia Current Visit: Yes Status: Acute Status post reduction in the ER 04/26/[address] Bess. Status post robotic incisional hernia repair with mesh 04/28/18. (5) NUNU (acute kidney injury) Current Visit: Yes Status: Resolved Likely secondary to sepsis and poor PO intake prior to admission. Resolved. (6) Lactic acidosis Current Visit: Yes Status: Resolved Likely secondary to sepsis. Resolved. (7) Hyponatremia Current Visit: No Status: Acute Improved. (8) Lung nodule Current Visit: Yes Status: Acute CT of the chest showed spiculated nodule in the right upper lobe highly suspicious for malignancy. Hem/Onc consulted with plans to PET/biopsy as an outpatient. (9) Acute anemia Current Visit: Yes Status: Acute Hgb down to 8 this morning. No acute bleeding noted on exam. Further workup and management per the primary team. (10) Acute respiratory failure with hypoxia Current Visit: Yes Status: Acute Likely secondary to large left pleural effusion. Resolved. (11) Pleural effusion Current Visit: Yes Status: Acute CXR 05/16/18 showed persistent bilateral pleural effusions with pulmonary vascular congestion. Status post left thoracentesis with 1000ml transudative fluid removed. Culture negative. Cytology negative for malignancy. Repeat CXR 05/18/18 showed worsening bibasilar atelectasis vs. PNA (likely atelectasis based on clinical picture) and increased right pleural effusion. Recommend pulmonology to evaluate for increased right pleural effusion. (12) Pneumonia Current Visit: Yes Status: Resolved CT of the chest 05/05 showed consolidative changes and atelectatic changes mostly in the right lower lobe consistent with PNA. Received 6 days of Rocephin and Flagyl. Qualifiers: Pneumonia type: due to unspecified organism Laterality: right Lung location: lower lobe of lung Qualified Code(s): J18.1 - Lobar pneumonia, unspecified organism (13) Hematuria Current Visit: Yes Status: Resolved Etiology unclear: trauma vs. malignancy vs. other. CT scan showed findings of bladder wall thickening. Urology consulted and recommendations noted. Appears resolved. Qualifiers: Hematuria type: unspecified type Qualified Code(s): R31.9 - Hematuria, unspecified (14) COPD (chronic obstructive pulmonary disease) Current Visit: Yes Status: Chronic Qualifiers: COPD type: chronic bronchitis Chronic bronchitis type: unspecified Qualified Code(s): J42 - Unspecified chronic bronchitis - Subjective Interval history: Patient seen and examined. No acute events noted overnight. Patient states overall he feels okay. Denies any specific complaints. He states that he feels okay. To set a bowel movement with no diarrhea. No chest pain or shortness of breath. Infect Dis PN-Objective Data - Labs CBC & Chem 7: 05/26/18 03:34 05/26/18 03:34 Labs: Laboratory Results - last 24 hr 05/24/18 05/25/18 05/25/18 23:24 11:36 18:13 WBC RBC Hgb Hct MCV MCH MCHC RDW Plt Count MPV Immature Gran % Seg Neutrophils % Lymphocytes % Monocytes % Eosinophils % Basophils % Neutrophils # Lymphocytes # Monocytes # Eosinophils # Basophils # Sodium Potassium Chloride Carbon Dioxide BUN Creatinine Est GFR ( Amer) Est GFR (Non-Af Amer) BUN/Creatinine Ratio Glucose POC Glucose 132 H 137 H 121 H Calculated Osmolality Calcium Phosphorus Magnesium 05/26/18 05/26/18 05/26/18 00:55 03:34 03:34 WBC 11.9 H RBC 2.78 L Hgb 8.3 L Hct 24.7 L MCV 88.8 MCH 29.9 MCHC 33.6 RDW 15.0 H Plt Count 610 H MPV 10.0 Immature Gran % 1.6 Seg Neutrophils % 70.1 Lymphocytes % 11.5 Monocytes % 12.3 Eosinophils % 4.1 Basophils % 0.4 Neutrophils # 8.3 Lymphocytes # 1.4 Monocytes # 1.5 H Eosinophils # 0.5 Basophils # 0.1 Sodium Potassium Chloride Carbon Dioxide BUN Creatinine Est GFR ( Amer) Est GFR (Non-Af Amer) BUN/Creatinine Ratio Glucose POC Glucose 136 H Calculated Osmolality Calcium Phosphorus 4.6 H Magnesium 2.1 05/26/18 05/26/18 05/26/18 03:34 04:26 11:16 WBC RBC Hgb Hct MCV MCH MCHC RDW Plt Count MPV Immature Gran % Seg Neutrophils % Lymphocytes % Monocytes % Eosinophils % Basophils % Neutrophils # Lymphocytes # Monocytes # Eosinophils # Basophils # Sodium 133 L Potassium 3.5 Chloride 95 L Carbon Dioxide 28 BUN 30 H Creatinine 0.34 L Est GFR ( Amer) > 60 Est GFR (Non-Af Amer) > 60 BUN/Creatinine Ratio 88 H Glucose 125 H POC Glucose 137 H 136 H Calculated Osmolality 284 Calcium 8.7 Phosphorus Magnesium Cultures: Cultures 05/22/18 18:15 Anaerobic Culture - Preliminary Incision At this time, no anaerobic growth is present. The culture will be finalized after 5 days of incubation. 05/22/18 18:15 Wound Culture - Preliminary Incision Enterococcus species 05/21/18 13:35 Blood Culture - Preliminary Central Venous Catheter Culture is incubating and being continuously monitored for growth. Final report to follow. 05/21/18 13:40 Blood Culture - Preliminary Peripheral Venipuncture Culture is incubating and being continuously monitored for growth. Final report to follow. 05/17/18 11:25 Body Fluid Culture - Final Pleural Fluid 05/09/18 13:50 Blood Culture - Final Peripheral Venipuncture No growth. Final report. 05/09/18 13:55 Blood Culture - Final Peripheral Venipuncture No growth. Final report. 05/06/18 12:23 Blood Culture - Final Peripheral Venipuncture No growth. Final report. 05/06/18 12:28 Blood Culture - Final Peripheral Venipuncture No growth. Final report. 05/02/18 09:50 Blood Culture - Final Peripheral Venipuncture No growth. Final report. 05/02/18 09:50 Blood Culture - Final Peripheral Venipuncture No growth. Final report. 04/26/18 21:30 Legionella Antigen - Final Urine,Clean Catch Serology 05/17/18 05/17/18 05/17/18 Range/Units 11:25 11:25 11:25 Urine Color (Yellow) Urine Clarity (Clear) Urine pH (5.0-8.0) pH Units Ur Specific [place] (1.010-1.025) Urine Protein (Neg-Trace) mg/dL Urine Glucose (UA) (Normal) mg/dL Urine Ketones (Negative) mg/dL Urine Blood (Negative) Urine Nitrite (Negative) Urine Bilirubin (Negative) Urine Urobilinogen (Normal) mg/dL Ur Leukocyte Esterase (Negative) Urine Microscopic RBC (0-3) per hpf Urine Microscopic WBC (0-3) per hpf Ur Squamous Epith Cells (None-Few) per lpf Ur Renal Epithelial Cell (None-Few) per hpf Urine Bacteria (None-Few) per hpf Hyaline Casts (None-Few) per lpf Granular Casts (None Seen) per lpf Urine Mucus (Few) Urine Yeast (None Seen) per hpf Ur Culture Indicated? (NO) Urine Creatinine mg/dL Urine Sodium mEq/L Pleural Fluid Volume 800.0 mL Pleural Appearance Clear (Clear) Pleural pH 8.00 (No Ref Range) pH Units Pleural RBC < 0.002 (0.000 - 0.002) M/mcL Pleural Tot Nuc Cell 47 (0-1000) TNC/mcL Pleural Neutrophils 61.0 % Pleural Lymphocytes % 27.0 % Pleural Monocytes % 6.0 % Pleural Other Cells % 6.0 % Pleural Total Protein (No Ref Range) g/dL Pleural LDH (No Ref Range) Units/L Pleural Glucose 146 (No Ref Range) mg/dL Pleural Amylase < 10 (No Ref Range) Units/L Pleural Cholesterol [employer] Nasal Screen MRSA (PCR) (Negative) Chlamy pneumoniae PCR (Not Detect) Adenovirus (PCR) (Not Detect) B. pertussis DNA (PCR) (Not Detect) B.parapertussis DNA PCR (Not Detect) Coronavirus OC43 (PCR) (Not Detect) Coronavirus HKU1 (PCR) (Not Detect) Coronavirus 229E (PCR) (Not Detect) Coronavirus NL63 (PCR) (Not Detect) Human Metapneumovir PCR (Not Detect) Influenza A (H1) PCR (Not Detect) Influ A (H1N1/09) PCR (Not Detect) Influenza A (H3) PCR (Not Detect) Influenza A Untype (PCR) (Not Detect) Influenza Type B (PCR) (Not Detect) M.pneumoniae DNA (PCR) (Not Detect) Parainfluenza 1 (PCR) (Not Detect) Parainfluenza 2 (PCR) (Not Detect) Parainfluenza 3 (PCR) (Not Detect) Parainfluenza 4 (PCR) (Not Detect) RSV (PCR) (Not Detect) Entero/Rhino (PCR) (Not Detect) 05/17/18 05/15/18 05/15/18 Range/Units 11:25 22:48 21:33 Urine Color Red A (Yellow) Urine Clarity Turbid A (Clear) Urine pH 6.0 (5.0-8.0) pH Units Ur Specific [place] 1.015 (1.010-1.025) Urine Protein 100 H (Neg-Trace) mg/dL Urine Glucose (UA) Normal (Normal) mg/dL Urine Ketones Trace H (Negative) mg/dL Urine Blood Large H (Negative) Urine Nitrite Negative (Negative) Urine Bilirubin Moderate H (Negative) Urine Urobilinogen Normal (Normal) mg/dL Ur Leukocyte Esterase Small H (Negative) Urine Microscopic RBC TNTC H (0-3) per hpf Urine Microscopic WBC 30-50 H (0-3) per hpf Ur Squamous Epith Cells Many H (None-Few) per lpf Ur Renal Epithelial Cell (None-Few) per hpf Urine Bacteria None Seen (None-Few) per hpf Hyaline Casts None Seen (None-Few) per lpf Granular Casts (None Seen) per lpf Urine Mucus (Few) Urine Yeast (None Seen) per hpf Ur Culture Indicated? NO. A (NO) Urine Creatinine mg/dL Urine Sodium mEq/L Pleural Fluid Volume mL Pleural Appearance (Clear) Pleural pH (No Ref Range) pH Units Pleural RBC (0.000 - 0.002) M/mcL Pleural Tot Nuc Cell (0-1000) TNC/mcL Pleural Neutrophils % Pleural Lymphocytes % % Pleural Monocytes % % Pleural Other Cells % % Pleural Total Protein < 3.0 (No Ref Range) g/dL Pleural LDH 63 (No Ref Range) Units/L Pleural Glucose (No Ref Range) mg/dL Pleural Amylase (No Ref Range) Units/L Pleural Cholesterol Nasal Screen MRSA (PCR) Negative (Negative) Chlamy pneumoniae PCR (Not Detect) Adenovirus (PCR) (Not Detect) B. pertussis DNA (PCR) (Not Detect) B.parapertussis DNA PCR (Not Detect) Coronavirus OC43 (PCR) (Not Detect) Coronavirus HKU1 (PCR) (Not Detect) Coronavirus 229E (PCR) (Not Detect) Coronavirus NL63 (PCR) (Not Detect) Human Metapneumovir PCR (Not Detect) Influenza A (H1) PCR (Not Detect) Influ A (H1N1/09) PCR (Not Detect) Influenza A (H3) PCR (Not Detect) Influenza A Untype (PCR) (Not Detect) Influenza Type B (PCR) (Not Detect) M.pneumoniae DNA (PCR) (Not Detect) Parainfluenza 1 (PCR) (Not Detect) Parainfluenza 2 (PCR) (Not Detect) Parainfluenza 3 (PCR) (Not Detect) Parainfluenza 4 (PCR) (Not Detect) RSV (PCR) (Not Detect) Entero/Rhino (PCR) (Not Detect) 05/02/18 04/27/18 04/26/18 Range/Units 18:00 04:22 21:30 Urine Color Dark Yellow (Yellow) Urine Clarity Clear (Clear) Urine pH 7.0 (5.0-8.0) pH Units Ur Specific [place] 1.025 (1.010-1.025) Urine Protein 30 H (Neg-Trace) mg/dL Urine Glucose (UA) Normal (Normal) mg/dL Urine Ketones 15 H (Negative) mg/dL Urine Blood Negative (Negative) Urine Nitrite Positive A (Negative) Urine Bilirubin Small H (Negative) Urine Urobilinogen Normal (Normal) mg/dL Ur Leukocyte Esterase Trace H (Negative) Urine Microscopic RBC 0-3 (0-3) per hpf Urine Microscopic WBC 0-3 (0-3) per hpf Ur Squamous Epith Cells Many H (None-Few) per lpf Ur Renal Epithelial Cell (None-Few) per hpf Urine Bacteria None Seen (None-Few) per hpf Hyaline Casts None Seen (None-Few) per lpf Granular Casts (None Seen) per lpf Urine Mucus (Few) Urine Yeast (None Seen) per hpf Ur Culture Indicated? NO. A (NO) Urine Creatinine 137 mg/dL Urine Sodium 23.7 mEq/L Pleural Fluid Volume mL Pleural Appearance (Clear) Pleural pH (No Ref Range) pH Units Pleural RBC (0.000 - 0.002) M/mcL Pleural Tot Nuc Cell (0-1000) TNC/mcL Pleural Neutrophils % Pleural Lymphocytes % % Pleural Monocytes % % Pleural Other Cells % % Pleural Total Protein (No Ref Range) g/dL Pleural LDH (No Ref Range) Units/L Pleural Glucose (No Ref Range) mg/dL Pleural Amylase (No Ref Range) Units/L Pleural Cholesterol Nasal Screen MRSA (PCR) (Negative) Chlamy pneumoniae PCR Not Detected (Not Detect) Adenovirus (PCR) Not Detected (Not Detect) B. pertussis DNA (PCR) Not Detected (Not Detect) B.parapertussis DNA PCR Not Detected (Not Detect) Coronavirus OC43 (PCR) Not Detected (Not Detect) Coronavirus HKU1 (PCR) Not Detected (Not Detect) Coronavirus 229E (PCR) Not Detected (Not Detect) Coronavirus NL63 (PCR) Not Detected (Not Detect) Human Metapneumovir PCR Not Detected (Not Detect) Influenza A (H1) PCR Not Detected (Not Detect) Influ A (H1N1/09) PCR Not Detected (Not Detect) Influenza A (H3) PCR Not Detected (Not Detect) Influenza A Untype (PCR) Not Detected (Not Detect) Influenza Type B (PCR) Not Detected (Not Detect) M.pneumoniae DNA (PCR) Not Detected (Not Detect) Parainfluenza 1 (PCR) Not Detected (Not Detect) Parainfluenza 2 (PCR) Not Detected (Not Detect) Parainfluenza 3 (PCR) Not Detected (Not Detect) Parainfluenza 4 (PCR) Not Detected (Not Detect) RSV (PCR) Not Detected (Not Detect) Entero/Rhino (PCR) Not Detected (Not Detect) 04/26/18 Range/Units 21:30 Urine Color Dark Yellow (Yellow) Urine Clarity Turbid A (Clear) Urine pH 5.5 (5.0-8.0) pH Units Ur Specific [place] 1.022 (1.010-1.025) Urine Protein 100 H (Neg-Trace) mg/dL Urine Glucose (UA) Normal (Normal) mg/dL Urine Ketones Trace H (Negative) mg/dL Urine Blood Small H (Negative) Urine Nitrite Negative (Negative) Urine Bilirubin Moderate H (Negative) Urine Urobilinogen Normal (Normal) mg/dL Ur Leukocyte Esterase Trace H (Negative) Urine Microscopic RBC 0-3 (0-3) per hpf Urine Microscopic WBC 5-15 H (0-3) per hpf Ur Squamous Epith Cells Many H (None-Few) per lpf Ur Renal Epithelial Cell Few (None-Few) per hpf Urine Bacteria Moderate H (None-Few) per hpf Hyaline Casts Few (None-Few) per lpf Granular Casts Few H (None Seen) per lpf Urine Mucus Many H (Few) Urine Yeast Many H (None Seen) per hpf Ur Culture Indicated? NO (NO) Urine Creatinine mg/dL Urine Sodium mEq/L Pleural Fluid Volume mL Pleural Appearance (Clear) Pleural pH (No Ref Range) pH Units Pleural RBC (0.000 - 0.002) M/mcL Pleural Tot Nuc Cell (0-1000) TNC/mcL Pleural Neutrophils % Pleural Lymphocytes % % Pleural Monocytes % % Pleural Other Cells % % Pleural Total Protein (No Ref Range) g/dL Pleural LDH (No Ref Range) Units/L Pleural Glucose (No Ref Range) mg/dL Pleural Amylase (No Ref Range) Units/L Pleural Cholesterol Nasal Screen MRSA (PCR) (Negative) Chlamy pneumoniae PCR (Not Detect) Adenovirus (PCR) (Not Detect) B. pertussis DNA (PCR) (Not Detect) B.parapertussis DNA PCR (Not Detect) Coronavirus OC43 (PCR) (Not Detect) Coronavirus HKU1 (PCR) (Not Detect) Coronavirus 229E (PCR) (Not Detect) Coronavirus NL63 (PCR) (Not Detect) Human Metapneumovir PCR (Not Detect) Influenza A (H1) PCR (Not Detect) Influ A (H1N1/09) PCR (Not Detect) Influenza A (H3) PCR (Not Detect) Influenza A Untype (PCR) (Not Detect) Influenza Type B (PCR) (Not Detect) M.pneumoniae DNA (PCR) (Not Detect) Parainfluenza 1 (PCR) (Not Detect) Parainfluenza 2 (PCR) (Not Detect) Parainfluenza 3 (PCR) (Not Detect) Parainfluenza 4 (PCR) (Not Detect) RSV (PCR) (Not Detect) Entero/Rhino (PCR) (Not Detect) - Impressions Impressions Small Bowel X-Ray 05/25/18 08:00 IMPRESSION: Findings consistent with ileus D/ / James Cutler MD / James Cutler MD Interpreting Provider: James Cutler MD Chest/Abdomen X-ray 05/26/18 09:18 IMPRESSION: Mild adynamic ileus with contrast seen and the colon similar to 4 days earlier. Small pleural effusions with atelectasis, right greater than left. D/ / 05/26/2018 10:34:23 Charlie Kong MD / [facility] Interpreting Provider: Charlie Kong MD Exam - Constitutional Vitals: Temp Pulse Resp BP Pulse Ox 97.3 F L 101 17 116/67 92 05/26/18 10:56 05/26/18 10:56 05/26/18 10:56 05/26/18 10:56 05/26/18 10:56 General appearance: cooperative, no acute distress - Respiratory Respiratory exam: Present: CTAB. Absent: wheezes - Cardiovascular Cardiovascular exam: Present: RRR, +S1, +S2 - VTE Documentation of Mechanical Device: Intermittent pneumatic compression device Consult Discharge Plan - Plan Referrals: Virgilio Sanchez MD [Primary Care Provider] - (Patient is from [facility]) Breanna Bess CNP [Advanced Practice Nurse] -
--- NOTE | 2018-05-26 14:38 | Discharge Summary ---
Orders not resulted at time of discharge: Pending orders 05/21/18 12:53 Fungal Culture,Blood [MYC] Routine 05/21/18 13:35 Culture,Blood [BC] Routine 05/21/18 13:40 Culture,Blood [BC] Routine 05/22/18 18:15 Culture,Anaerobic [RM] Routine Culture,Wound [RM] Routine 05/27/18 04:00 Basic Metabolic Panel AM 0400 CBC [Complete Blood Count] [HEME] AM 0400 Magnesium AM 0400 Phosphorous AM 0400 Triglycerides AM 0400 05/28/18 04:00 Basic Metabolic Panel AM 0400 CBC [Complete Blood Count] [HEME] AM 0400 Magnesium AM 0400 Phosphorous AM 0400 05/29/18 04:00 Basic Metabolic Panel AM 0400 CBC [Complete Blood Count] [HEME] AM 0400 Magnesium AM 0400 Phosphorous AM 0400 Date of Encounter: 05/26/18 Time of Encounter: 14:00 - Discharge Diagnosis (1) Small bowel obstruction Priority: Primary Status: Resolved Assessment and Plan: 67 year old male patient with history of COPD, GERD, hyperlipidemia, hypertension was initially admitted for incarcerated incisional hernia and small bowel obstruction along with acute kidney injury. Has had extensive and prolonged stay here due to multiple complications. Patient underwent initial surgery with reported recurrent incisional hernia repair mesh on 04/28. His postoperative course was complicated with significant postop ileus and then small bowel obstruction for which she underwent surgery again on 05/10 with exploratory laparotomy with lysis of adhesions and small bowel resection along with right colectomy. Patient later developed respiratory distress and acute hypoxic respiratory failure and was transferred to the ICU. He did not require intubation. He was diagnosed with acute hypoxic repiratory failure, sepsis with pneumonia and bilateral pleural effusions and he was treated with IV antibiotics. He also underwent left-sided thoracentesis. Patient was then transferred back to the floor. Surgery followed the patient for TPN and post op ileus. Patient had persistent leukocytosis and was started on antibiotic for possible wound infection. CT scan of the chest done earlier during this hospital stay showed a spiculated nodule concerning for malignancy. Patient also developed hematuria and DVT prophylaxis with heparin was held. Urology followed and patient underwent continuous bladder irrigation which was stopped on 05/20. Patient remained on TPN and had NG tube to low intermittent suction. He was followed daily by surgery and ID for prolonged post op ileus/ small bowel obstruction and leukocytosis respectively. He had a small bowel follow through on 05/25 showing an ileus. He however had bowel movements overnight and by 05/26, he was transitioned to clear liquids which he tolerated. He will continue his TPN supplementation. He was cleared for discharge from a surgical standpoint once tolerated a clear liquid diet and will be discharged to an LTACH on [facility] His leukocytosis also resolved and ID recommended no further antibiotics. 35mins was spent discharging this patient (2) SIRS (systemic inflammatory response syndrome) Priority: Secondary Status: Acute (3) Acute respiratory failure with hypoxia Priority: Secondary Status: Acute (4) Umbilical hernia Priority: Secondary Status: Acute Qualifiers: Obstruction and gangrene presence: with obstruction but without gangrene Qualified Code(s): K42.0 - Umbilical hernia with obstruction, without gangrene (5) COPD (chronic obstructive pulmonary disease) Priority: Secondary Status: Chronic Qualifiers: COPD type: chronic bronchitis Chronic bronchitis type: unspecified Qualified Code(s): J42 - Unspecified chronic bronchitis (6) NUNU (acute kidney injury) Priority: Secondary Status: Resolved (7) Electrolyte imbalance Priority: Secondary Status: Acute (8) Protein calorie malnutrition Priority: Secondary Status: Acute Qualifiers: Protein-calorie malnutrition severity: severe Qualified Code(s): E43 - Unspecified severe protein-calorie malnutrition (9) Essential hypertension Priority: Secondary Status: Chronic (10) Pneumonia Priority: Secondary Status: Resolved Qualifiers: Pneumonia type: due to unspecified organism Laterality: right Lung location: lower lobe of lung Qualified Code(s): J18.1 - Lobar pneumonia, unspecified organism (11) Lung nodule seen on imaging study Priority: Secondary Status: Chronic (12) Gross hematuria Priority: Secondary Status: Resolved (13) Hyponatremia Priority: Secondary Status: Acute Hospital course: Mr. Freed is a 67 year old male - Time Spent with Patient Total time spent providing and/or coordinating discharge services: - Discharge Medications Prescriptions: OXYCODONE Oral CONC [Oxycodone Oral Conc] 10 mg SL Q6HR PRN 7 Days #30 oral.syg PRN Reason: Severe Pain Chloraseptic Connell [Chloraseptic] 2 spray MM QID PRN 30 Days #30 bottle PRN Reason: Sore Throat Furosemide [Lasix] 40 mg PO BID 30 Days #60 tablet Saliva Stimulant [Biotene Moisturizing Rinse] 1 spray PO Q2H PRN 30 Days #30 bottle PRN Reason: Dry Mouth Simethicone [Gas-X] 80 mg PO TID PRN 30 Days #30 tab.chew PRN Reason: Dyspepsia Home Medications: Ipratropium/Albuterol Sulfate [Combivent Respimat Inhal Connell] 1 puff IH QID 10/26 [History] Loratadine [Allergy Relief] 10 mg PO DAILY 09/09/17 [History] Metoprolol Succinate 25 mg PO DAILY 09/09/17 [History] Montelukast [Singulair] 10 mg PO DAILY 09/09/17 [History] Ranitidine HCl [Acid Ring Stamper] 150 mg PO BID 09/09/17 [History] Simvastatin [Zocor] 40 mg PO HS 09/09/17 [History] Chloraseptic Connell [Chloraseptic] 2 spray MM QID PRN 30 Days #30 bottle [Rx] Furosemide [Lasix] 40 mg PO BID 30 Days #60 tablet 05/26/18 [Rx] OXYCODONE Oral CONC [Oxycodone Oral Conc] 10 mg SL Q6HR PRN 7 Days #30 oral.syg 05/26/18 [Rx] Saliva Stimulant [Biotene Moisturizing Rinse] 1 spray PO Q2H PRN 30 Days #30 bottle 05/26/18 [Rx] Simethicone [Gas-X] 80 mg PO TID PRN 30 Days #30 tab.chew 05/26/18 [Rx] Allergies/Adverse Reactions: 3 Allergy/AdvReac Type Severity Reaction Status Date / Time Penicillins Allergy See Verified 04/10/18 12:50 Comments Date of admission: 04/26/18 20:07 Primary care physician: Virgilio Sanchez MD Consults: 04/27/18 09:15 Consult to Cardiology [CONS] Routine Comment: Consulting Provider: Cardiology Rola Reason for Consult: Persistent diffuse ST depressions Call Completed: No 05/02/18 09:22 Consult to Invasive Line Access Team [CONS] Routine Reason for Consult: Picc Line Insertion Line Type: PICC PICC line indications: Parental nutrition 05/02/18 09:23 consult to commercial real estate broker [Consult to Nutrition] [CONS] Routine Comment: total IVF (MIV and TPN) titrate to TPN goal Consulting Provider: NUTRITION Reason for Dietary Consult: TPN Start and Manage 05/02/18 10:23 Consult to Occupational Therapy [CONS] Routine Comment: Evaluate, develop and implement POC Reason for Consult: Mobilization and discharge planning Does patient have active BEDREST order?: No Is patient medically & hemodynamically stable?: Yes Patient assessed for mobility or mobilized this visit?: No Consult to Physical Therapy [CONS] Routine Comment: Evaluate, develop and implement POC Reason for Consult: Mobilization and discharge planning Does patient have active BEDREST order?: No Is patient medically & hemodynamically stable?: Yes Patient assessed for mobility or mobilized this visit?: No 05/02/18 10:26 Consult to Respiratory Therapy [CONS] Routine Reason for Consult: Aggressive pulm toileting, accuneb administration in the setting of hx COPD and postoperative atelectasis Time Notified: 10:27 Call Completed: No 05/06/18 16:17 Consult to Oncology Hematology [CONS] Routine Consulting Provider: Macho Hogan Reason for Consult: Incidental finding of 1.2*1cm RUL lung spiculated nodule Call Completed: Yes 05/09/18 20:06 Consult to Urology [CONS] Routine Consulting Provider: Urology Rola Reason for Consult: 67 yo male admitted w/ileus versus obstruction w/hx of umbilical hernia now presents w/hematuria. Acosta catheter placed today. Output pale earlier today with dark red color now. Call Completed: Yes 05/14/18 16:16 Consult to Urology [CONS] Routine Consulting Provider: Urology Rola Reason for Consult: Hematuria with acute blood loss anemia Call Completed: Yes 05/16/18 14:06 Consult to Interventional Radiology [CONS] Routine Consulting Provider: Radiology Interventional Cols Reason for Consult: B/L pleural effusion Call Completed: No 05/17/18 09:48 Consult to Pulmonology [CONS] Routine Consulting Provider: Pulm Crit Care & Sleep Amasa Reason for Consult: HYpoxic resp failure Time Notified: 09:48 Call Completed: Yes 05/19/18 11:03 Consult to Quenching Car Operator [CONS] Routine Reason for SW Consult: return to [facility] 05/21/18 13:53 Consult to Infectious Diseases [CONS] Routine Consulting Provider: Infectious Disease Rola Reason for Consult: Persistent leukocytosis Call Completed: No 05/25/18 11:28 Consult to PICC team [Consult to Invasive Line Access Team] [CONS] Routine Reason for Consult: unclog picc line Line Type: PICC Call Completed: Yes - Constitutional Vitals: Temp Pulse Resp BP Pulse Ox 97.3 F L 101 17 116/67 92 05/26/18 10:56 05/26/18 10:56 05/26/18 10:56 05/26/18 10:56 05/26/18 10:56 General appearance: Present: cooperative, A&O X 2 (issues with memory occasionally, likely due to acute illness), no acute distress, answers questions appropriately - Head Head exam: Present: atraumatic, normocephalic - Eye Eye exam: Present: PERRL, conjuntiva pink, sclera anicteric Pupils: Present: PERRL - Neck Neck exam general surgery: Present: supple, trachea midline. Absent: lymphadenopathy - Respiratory Respiratory exam: Present: CTAB. Absent: accessory muscle use, rales, rhonchi, wheezes - Cardiovascular Cardiovascular exam: Present: RRR, +S1, +S2. Absent: diastolic murmur, gallop, rubs, systolic murmur - GI/Abdominal GI/Abdominal exam: Present: normal bowel sounds, soft, no peritoneal signs. Absent: distended, tenderness - Extremities Exam Extremities exam: Present: warm, radial pulses palpable and symmetrical. Absent : calf tenderness, cyanotic, pedal edema - Neurological Exam Neurological exam: Present: CN II-XII intact, oriented X3, no focal deficits. Absent: pronater drift, facial droop, speech deficit - Skin Skin exam: Present: dry, intact - Patient Status Disposition: Transfer LTC Condition: Fair - Discharge Instructions Follow Up With: Virgilio Sanchez MD [Primary Care Provider] - (Patient is from [facility]) Breanna Bess CNP [Advanced Practice Nurse] - 06/06/18 10:50 am - Diet and Activity Activity: increase activity as tolerated Diet: advance to your usual diet - VTE Documentation of Mechanical Device: Intermittent pneumatic compression device
--- NOTE | 2018-05-26 15:20 | Physician Discharge Referral ---
ExtendedCare Referral Info Transfer To: LTACH - Diagnosis (1) Small bowel obstruction Priority: Primary Status: Resolved (2) SIRS (systemic inflammatory response syndrome) Priority: Primary Status: Acute (3) Acute respiratory failure with hypoxia Priority: Primary Status: Acute (4) Umbilical hernia Priority: Primary Status: Acute (5) COPD (chronic obstructive pulmonary disease) Priority: Secondary Status: Chronic (6) NUNU (acute kidney injury) Priority: Secondary Status: Resolved (7) Electrolyte imbalance Priority: Secondary Status: Acute (8) Protein calorie malnutrition Priority: Secondary Status: Acute (9) Essential hypertension Priority: Secondary Status: Chronic (10) Pneumonia Priority: Secondary Status: Resolved (11) Lung nodule seen on imaging study Priority: Secondary Status: Chronic (12) Gross hematuria Priority: Secondary Status: Resolved (13) Hyponatremia Priority: Secondary Status: Acute - Transfer Medications Prescriptions: OXYCODONE Oral CONC [Oxycodone Oral Conc] 10 mg SL Q6HR PRN 7 Days #30 oral.syg PRN Reason: Severe Pain Chloraseptic Verner [Chloraseptic] 2 spray MM QID PRN 30 Days #30 bottle PRN Reason: Sore Throat Furosemide [Lasix] 40 mg PO BID 30 Days #60 tablet Saliva Stimulant [Biotene Moisturizing Rinse] 1 spray PO Q2H PRN 30 Days #30 bottle PRN Reason: Dry Mouth Simethicone [Gas-X] 80 mg PO TID PRN 30 Days #30 tab.chew PRN Reason: Dyspepsia Home Medications: Ipratropium/Albuterol Sulfate [Combivent Respimat Inhal Verner] 1 puff IH QID 10/26 [History] Loratadine [Allergy Relief] 10 mg PO DAILY 09/09/17 [History] Metoprolol Succinate 25 mg PO DAILY 09/09/17 [History] Montelukast [Singulair] 10 mg PO DAILY 09/09/17 [History] Ranitidine HCl [Acid First Aid Teacher] 150 mg PO BID 09/09/17 [History] Simvastatin [Zocor] 40 mg PO HS 09/09/17 [History] Chloraseptic Verner [Chloraseptic] 2 spray MM QID PRN 30 Days #30 bottle [Rx] Furosemide [Lasix] 40 mg PO BID 30 Days #60 tablet 05/26/18 [Rx] OXYCODONE Oral CONC [Oxycodone Oral Conc] 10 mg SL Q6HR PRN 7 Days #30 oral.syg 05/26/18 [Rx] Saliva Stimulant [Biotene Moisturizing Rinse] 1 spray PO Q2H PRN 30 Days #30 bottle 05/26/18 [Rx] Simethicone [Gas-X] 80 mg PO TID PRN 30 Days #30 tab.chew 05/26/18 [Rx] Allergies/Adverse Reactions: 3 Allergy/AdvReac Type Severity Reaction Status Date / Time Penicillins Allergy See Verified 04/10/18 12:50 Comments - Respiratory Orders Smoking Cessation: Smoking cessation has been advised. For more information, call the [place] Tobacco Quit Line at 6-082-FFLWNOW. - Mobility Orders Ambulate - Rehabiliation Orders Rehab Potential: Good Rehab Orders: Evaluation for Physical Therapy CERTIFICATION: I certify that the transfer of the above named patient to an Extended Care Facility is necessary for the continuing treatment of the diagnosis listed. The above information is true and accurate reflection of patient's current condition. Confidential - Redisclosure prohibited without a patient's written consent.
[2018-05-26] MEDS: *HR* Alteplase (Cathflo) 2 MG VIAL IVP PRN (15:35)
[2018-05-26 15:56] VITALS: BP 115/66
[2018-05-26] MEDS ORDERED: Clinimix E 5%-20% SOLUTION 2,000 ML with MVI, adult with vitamin K 10 ML, Trace Eleme... IVC SCH (17:00)
[2018-05-27] MEDS ORDERED: Clinimix E 5%-20% SOLUTION 2,000 ML with MVI, adult with vitamin K 10 ML, Trace Eleme... IVC SCH (17:00)
[2018-05-28] MEDS ORDERED: Clinimix E 5%-20% SOLUTION 2,000 ML with MVI, adult with vitamin K 10 ML, Trace Eleme... IVC SCH (17:00)
== END 2018-05-26 19:03 | DRG 329 ==
LOC: EMEROO 13:08 → 2NNU 20:07 → SUATTDRO 20:07 → 2NNU 20:22 → 3ANU 05-03 12:19 → ICNU 05-17 09:28 → 2ANU 05-18 18:25
PROVIDERS: ADMIT Internal Medicine; ATTEND Internal Medicine

== ENCOUNTER 2019-07-04 05:04 | Inpatient (IN) ==
[2019-07-04] MEDS ORDERED: 0.9 % Sodium Chloride 1,000 ML IVC ONE ×2 (05:21→06:04)
[2019-07-04] MEDS ORDERED: Ondansetron 4 MG/2 ML VIAL IVP ONE (05:21)
[2019-07-04 05:43] LABS: Basophils # 0.1 K/mcL (0.0-0.2); Basophils % 0.4 %; Eosinophils % 0.2 %; Hematocrit 43.4 % (37.5-50.1); Hemoglobin 15.3 g/dL (12.9-16.9); Immature Granulocytes % 0.9 % (0-4); Lymphocytes % 8.7 %; Mean Corpuscular HGB Conc 35.3 g/dL (31.6-35.5); Mean Corpuscular Hemoglobin 31.8 pg (28.0-33.3); Mean Corpuscular Volume 90.2 fL (83.0-100.0); Mean Platelet Volume 10.3 fL (9.4-12.4); Monocytes # 2.1 K/mcL (0.0-1.3); Monocytes % 8.8 %; Platelet Count 333 K/mcL (140-400); Red Blood Count 4.81 M/mcL (4.19-5.50); White Blood Count 23.4 K/mcL (4.3-11.1)
[2019-07-04] MEDS ORDERED: *HR* FentaNYL (PF) 100 MCG/2 ML VIAL IVP ONE (05:55)
[2019-07-04] MEDS ORDERED: MetroNIDAZOLE 500 MG/100 ML 500 MG/100 ML BAG IVPB ONE (06:06)
[2019-07-04] MEDS ORDERED: Isovue-370 500 ML BOTTLE IVP ONE (06:38)
[2019-07-04 07:00] LABS: Aspartate Amino Transferase 24 Units/L (13-39)
[2019-07-04 07:09] LABS: Alanine Aminotransferase 24 Units/L (7-52); Albumin 5.1 g/dL (3.5-5.7); Albumin/Globulin Ratio 1.5 (1.1-2.2); Alkaline Phosphatase 95 Units/L (34-104); BUN/Creatinine Ratio 10 (6-26); Bilirubin,Direct 0.1 mg/dL (0.0-0.2); Bilirubin,Total 1.1 mg/dL (0.3-1.0); Blood Urea Nitrogen 10 mg/dL (8-23); Calcium 10.6 mg/dL (8.6-10.3); Carbon Dioxide 21 mEq/L (23-29); Chloride 82 mEq/L (98-107); Globulin 3.3 g/dL (2.4-3.5); Glucose 196 mg/dL (70-105); Lipase 12 Units/L (11-82); Osmolality,Calculated 266 (280-300); Potassium 4.2 mEq/L (3.5-5.1); Sodium 126 mEq/L (136-145); Total Protein 8.4 g/dL (6.4-8.9); Troponin I 0.03 ng/mL (< 0.04); eGFR For African Americans > 60 (> 60); eGFR For Non-African Americans > 60 (> 60)
[2019-07-04 08:03] LABS: Bilirubin,Urine Negative (Negative); Blood,Urine Negative (Negative); Clarity,Urine Clear (Clear); Color,Urine Yellow (Yellow); Glucose,Urine (UA) Normal (Normal); Ketones,Urine Negative (Negative); Leukocyte Esterase,Urine Negative (Negative); Nitrite,Urine Negative (Negative); Protein,Urine 30 mg/dL (Neg-Trace); Specific Gravity,Urine > 1.030 (1.010-1.025); Urobilinogen,Urine Normal (Normal)
[2019-07-04 08:20] LABS: Bacteria,Urine None Seen per hpf (None-Few); Hyaline Casts,Urine None Seen per lpf (None-Few); Squamous Epithelial Cell,Urine Many per lpf (None-Few)
[2019-07-04] MEDS ORDERED: Pantoprazole 40 MG VIAL IVP ONE (08:23)
[2019-07-04 08:30] LABS: RBC,Urine 0-3 per hpf (0-3)
[2019-07-04] MEDS ORDERED: *HR* LORazepam 2 MG/ML VIAL IVP PRN ×2 (09:39)
[2019-07-04] MEDS ORDERED: 0.9 % Sodium Chloride 1,000 ML ONE (10:15)
[2019-07-04] MEDS: 0.9 % Sodium Chloride 1,000 ML IVC SCH ×2 (10:52→18:30)
[2019-07-04] MEDS: Morphine Sulfate Oral CONC 10 MG/0.5 ML ORAL.SYG SL PRN ×3 (10:52→23:13)
[2019-07-04] MEDS: *HR* Heparin 5,000 UNIT/ML VIAL SQ SCH (18:30)
[2019-07-04] MEDS: Thiamine (B-1) 100 MG, Folic Acid 1 MG, MVI, adult with vitamin K 10 ML in 0.9 % Sodi... IVPB SCH (18:43)
[2019-07-05] MEDS: Morphine Sulfate Oral CONC 10 MG/0.5 ML ORAL.SYG SL PRN ×3 (05:21→21:38)
[2019-07-05] MEDS: *HR* Heparin 5,000 UNIT/ML VIAL SQ SCH ×2 (05:21→21:03)
[2019-07-05 06:48] LABS: Basophils % 0.1 %; Eosinophils % 0.3 %; Hematocrit 33.8 % (37.5-50.1); Immature Granulocytes % 0.6 % (0-4); Lymphocytes # 1.1 K/mcL (0.6-4.6); Lymphocytes % 10.4 %; Mean Corpuscular HGB Conc 34.3 g/dL (31.6-35.5); Mean Corpuscular Hemoglobin 31.8 pg (28.0-33.3); Mean Corpuscular Volume 92.6 fL (83.0-100.0); Mean Platelet Volume 9.7 fL (9.4-12.4); Monocytes # 1.3 K/mcL (0.0-1.3); Monocytes % 12.2 %; Neutrophils # 7.9 K/mcL (1.6-8.9); Platelet Count 246 K/mcL (140-400); Red Blood Count 3.65 M/mcL (4.19-5.50); Red Cell Distribution Width 14.6 % (11.5-14.5); Segmented Neutrophils % 76.4 %
[2019-07-05 06:50] LABS: Hemoglobin 11.6 g/dL (12.9-16.9); White Blood Count 10.3 K/mcL (4.3-11.1)
[2019-07-05 07:07] LABS: BUN/Creatinine Ratio 18 (6-26); Blood Urea Nitrogen 10 mg/dL (8-23); Calcium 7.7 mg/dL (8.6-10.3); Carbon Dioxide 25 mEq/L (23-29); Chloride 100 mEq/L (98-107); Glucose 99 mg/dL (70-105); Osmolality,Calculated 275 (280-300); Potassium 3.7 mEq/L (3.5-5.1); Sodium 133 mEq/L (136-145); eGFR For African Americans > 60 (> 60); eGFR For Non-African Americans > 60 (> 60)
[2019-07-05] MEDS ORDERED: Pantoprazole 40 MG VIAL IVP SCH (09:00)
[2019-07-05] MEDS: Ondansetron 4 MG/2 ML VIAL IVP PRN ×2 (09:12→15:21)
[2019-07-05] MEDS: 0.9 % Sodium Chloride 1,000 ML IVC SCH ×3 (11:37→21:39)
[2019-07-05] MEDS ORDERED: cefOXitin 1,000 MG, 0.9 % Sodium Chloride 1,000 ML IR ONE ×2 (13:00→20:46)
[2019-07-05] MEDS ORDERED: cefOXitin 1,000 MG, Sodium Chloride IRRigation 1,000 ML IR ONE ×2 (14:00→20:46)
[2019-07-05] MEDS: Ipratropium/Albuterol Neb 3 ML IH SCH ×3 (16:25→23:24)
[2019-07-05 16:42] LABS: Prothrombin Time 11.7 Seconds (9.4-12.1)
[2019-07-05] MEDS ORDERED: Ondansetron 4 MG/2 ML VIAL ONE (16:46)
[2019-07-05] MEDS ORDERED: Lidocaine -MPF 2% 2 ML VIAL ONE (16:46)
[2019-07-05] MEDS ORDERED: *HR* Rocuronium Bromide 50 MG/5 ML VIAL ONE (16:46)
[2019-07-05] MEDS ORDERED: Lidocaine HCL 4 ML Topical Solution (Laryng-O-Jet Kit Sterile Pak) TP ONE (16:46)
[2019-07-05] MEDS ORDERED: *HR* Propofol 200 MG/20 ML VIAL IVP ONE (16:46)
[2019-07-05] MEDS ORDERED: Dexamethasone 4 MG/ML VIAL ONE (16:46)
[2019-07-05] MEDS ORDERED: CefOXitin 1,000 MG VIAL ONE (16:46)
[2019-07-05] MEDS ORDERED: *HR* FentaNYL (PF) 100 MCG/2 ML VIAL ONE ×2 (16:46→17:37)
[2019-07-05] MEDS ORDERED: *HR* Midazolam HCl 2 MG/2 ML VIAL ONE (16:46)
[2019-07-05] MEDS ORDERED: Clindamycin 900 MG/50 ML 900 MG/50 ML IV.SOLN IVPB ONE (17:06)
[2019-07-05] MEDS ORDERED: *HR* PHENYLEPHRINE 1,000 MCG/10 ML SYRINGE IVP ONE (17:26)
[2019-07-05] MEDS ORDERED: Albumin Human 5% 25.0 GM/500 ML VIAL ONE (17:29)
[2019-07-05] MEDS ORDERED: *HR* Metoprolol 5 MG/5 ML VIAL IVP SCH (18:00)
[2019-07-05] MEDS ORDERED: *HR* Remifentanil 1 MG VIAL IVP ONE (18:08)
[2019-07-05] MEDS ORDERED: *HR* HYDROMORPHONE 2 MG/ML VIAL ONE (18:29)
[2019-07-05] MEDS ORDERED: Acetaminophen IV 1,000 MG/100 ML INFUS..BTL ONE (18:59)
[2019-07-05] MEDS ORDERED: Acetaminophen IV 1,000 MG/100 ML INFUS..BTL IVPB ONE (19:01)
[2019-07-05] MEDS ORDERED: *HR* Metoprolol 5 MG/5 ML VIAL IVP PRN (19:16)
[2019-07-05] MEDS: *HR* HYDROmorphone (PF) 1 MG/ML SYRINGE IVP PRN ×2 (19:21→19:29)
[2019-07-05] MEDS ORDERED: Ringers Solution, Lactated 1,000 ML ONE (19:30)
[2019-07-05] MEDS ORDERED: *HR* HYDROmorphone (PF) 1 MG/ML SYRINGE IVP PRN (20:46)
[2019-07-05] MEDS ORDERED: *HR* LORazepam 2 MG/ML VIAL IVP PRN (20:46)
[2019-07-05] MEDS ORDERED: Ondansetron 4 MG/2 ML VIAL IVP PRN (20:46)
[2019-07-05] MEDS: Thiamine (B-1) 100 MG, Folic Acid 1 MG, MVI, adult with vitamin K 10 ML in 0.9 % Sodi... IVPB SCH (21:04)
[2019-07-06] MEDS: *HR* Metoprolol 5 MG/5 ML VIAL IVP SCH ×4 (00:43→18:13)
[2019-07-06 01:28] LABS: Basophils % 0.1 %; Hematocrit 34.7 % (37.5-50.1); Hemoglobin 11.8 g/dL (12.9-16.9); Immature Granulocytes % 0.4 % (0-4); Lymphocytes # 0.4 K/mcL (0.6-4.6); Lymphocytes % 3.5 %; Mean Corpuscular Hemoglobin 31.9 pg (28.0-33.3); Mean Corpuscular Volume 93.8 fL (83.0-100.0); Mean Platelet Volume 10.3 fL (9.4-12.4); Monocytes % 9.9 %; Neutrophils # 8.8 K/mcL (1.6-8.9); Platelet Count 266 K/mcL (140-400); Red Cell Distribution Width 14.8 % (11.5-14.5); Segmented Neutrophils % 86.1 %; White Blood Count 10.2 K/mcL (4.3-11.1)
[2019-07-06 01:37] LABS: BUN/Creatinine Ratio 24 (6-26); Blood Urea Nitrogen 13 mg/dL (8-23); Calcium 7.6 mg/dL (8.6-10.3); Carbon Dioxide 21 mEq/L (23-29); Chloride 105 mEq/L (98-107); Glucose 130 mg/dL (70-105); Magnesium 2.1 mg/dL (1.6-2.6); Osmolality,Calculated 292 (280-300); Phosphorous 4.2 mg/dL (2.7-4.5); Potassium 3.8 mEq/L (3.5-5.1); Sodium 140 mEq/L (136-145); eGFR For African Americans > 60 (> 60); eGFR For Non-African Americans > 60 (> 60)
[2019-07-06] MEDS: Ipratropium/Albuterol Neb 3 ML IH SCH ×6 (04:15→23:23)
[2019-07-06] MEDS: Morphine Sulfate Oral CONC 10 MG/0.5 ML ORAL.SYG SL PRN ×2 (05:04→23:04)
[2019-07-06] MEDS: 0.9 % Sodium Chloride 1,000 ML IVC SCH ×2 (05:04→11:50)
[2019-07-06] MEDS: *HR* Heparin 5,000 UNIT/ML VIAL SQ SCH ×3 (05:05→18:14)
[2019-07-06] MEDS ORDERED: Pantoprazole 40 MG VIAL IVP SCH (09:00)
[2019-07-06] MEDS: Clindamycin 600 MG/50 ML 600 MG/50 ML IV.SOLN IVPB SCH ×2 (09:33→16:58)
[2019-07-06] MEDS ORDERED: D10% in Water 500 ML IVC PRN (12:08)
[2019-07-06] MEDS ORDERED: Clindamycin 600 MG/50 ML 600 MG/50 ML IV.SOLN IVPB SCH (16:00)
[2019-07-06] MEDS ORDERED: Clinimix E 5%-15% SOLUTION 2,000 ML IVC SCH (17:00)
[2019-07-06] MEDS ORDERED: Thiamine (B-1) 100 MG, Folic Acid 1 MG, MVI, adult with vitamin K 10 ML in 0.9 % Sodi... IVPB SCH (18:00)
[2019-07-06] MEDS: *HR* LORazepam 2 MG/ML VIAL IVP PRN (23:04)
[2019-07-06] MEDS: Pantoprazole 40 MG VIAL IVP SCH (23:05)
[2019-07-07] MEDS: 0.9 % Sodium Chloride 1,000 ML IVC SCH ×3 (00:28→13:49)
[2019-07-07] MEDS: Clindamycin 600 MG/50 ML 600 MG/50 ML IV.SOLN IVPB SCH (00:28)
[2019-07-07] MEDS: *HR* Metoprolol 5 MG/5 ML VIAL IVP SCH ×4 (01:14→17:44)
[2019-07-07] MEDS: *HR* LORazepam 2 MG/ML VIAL IVP PRN ×3 (01:44→10:39)
[2019-07-07 04:14] LABS: VBG Ionized Calcium 1.05 mmol/L (1.15-1.35)
[2019-07-07] MEDS: Ipratropium/Albuterol Neb 3 ML IH SCH ×6 (04:17→23:06)
[2019-07-07] MEDS ORDERED: Haloperidol Lactate 5 MG/ML VIAL IVP ONE (04:41)
[2019-07-07] MEDS ORDERED: *HR* Promethazine 25 MG/ML VIAL IVP ONE (04:42)
[2019-07-07] MEDS: *HR* Heparin 5,000 UNIT/ML VIAL SQ SCH ×2 (06:43→17:43)
[2019-07-07 06:45] LABS: Basophils % 0.3 %; Eosinophils % 0.4 %; Hematocrit 28.8 % (37.5-50.1); Hemoglobin 9.6 g/dL (12.9-16.9); Immature Granulocytes % 1.5 % (0-4); Lymphocytes # 0.7 K/mcL (0.6-4.6); Lymphocytes % 7.6 %; Mean Corpuscular HGB Conc 33.3 g/dL (31.6-35.5); Mean Corpuscular Hemoglobin 32.1 pg (28.0-33.3); Mean Corpuscular Volume 96.3 fL (83.0-100.0); Mean Platelet Volume 10.2 fL (9.4-12.4); Monocytes # 1.3 K/mcL (0.0-1.3); Monocytes % 13.7 %; Platelet Count 160 K/mcL (140-400); Red Blood Count 2.99 M/mcL (4.19-5.50); Segmented Neutrophils % 76.5 %; White Blood Count 9.1 K/mcL (4.3-11.1)
[2019-07-07 07:07] LABS: BUN/Creatinine Ratio 26 (6-26); Blood Urea Nitrogen 11 mg/dL (8-23); Calcium 7.5 mg/dL (8.6-10.3); Carbon Dioxide 27 mEq/L (23-29); Chloride 109 mEq/L (98-107); Glucose 120 mg/dL (70-105); Magnesium 2.2 mg/dL (1.6-2.6); Osmolality,Calculated 291 (280-300); Phosphorous 1.1 mg/dL (2.7-4.5); Potassium 3.1 mEq/L (3.5-5.1); Sodium 140 mEq/L (136-145); Triglycerides 102 mg/dL (< 150); eGFR For African Americans > 60 (> 60); eGFR For Non-African Americans > 60 (> 60)
[2019-07-07 07:19] LABS: Platelet Estimate Normal (Normal)
[2019-07-07] MEDS: Pantoprazole 40 MG VIAL IVP SCH ×2 (08:05→20:46)
[2019-07-07] MEDS ORDERED: Potassium Phosphate 44 MEQ in 0.9 % Sodium Chloride 250 ML IVPB PRN (09:25)
[2019-07-07] MEDS ORDERED: *HR* LORazepam 2 MG/ML VIAL ONE (10:34)
[2019-07-07] MEDS ORDERED: Dexmedetomidine HCl 400 MCG/100 ML MLS IVC ONE (10:51)
[2019-07-07] MEDS: Dexmedetomidine HCl 400 MCG/100 ML MLS IVC SCH ×2 (11:00→17:42)
[2019-07-07 12:05] LABS: ABG Base Excess 3 mEq/L (-2 to 3); ABG HCO3 28 mEq/L (21-27); ABG Oxygen Saturation 76 % (95-98); ABG PCO2 43 mmHg (35-45); ABG PH 7.42 pH Units (7.32-7.45); ABG PO2 41 mmHg (85-104); ABG TCO2 29 mEq/L (20-26)
[2019-07-07 12:21] LABS: Basophils % 0.4 %; Eosinophils % 0.5 %; Hematocrit 27.3 % (37.5-50.1); Hemoglobin 8.9 g/dL (12.9-16.9); Lymphocytes # 0.6 K/mcL (0.6-4.6); Lymphocytes % 7.6 %; Mean Corpuscular HGB Conc 32.6 g/dL (31.6-35.5); Mean Corpuscular Hemoglobin 31.1 pg (28.0-33.3); Mean Corpuscular Volume 95.5 fL (83.0-100.0); Mean Platelet Volume 10.4 fL (9.4-12.4); Monocytes # 1.2 K/mcL (0.0-1.3); Monocytes % 15.3 %; Neutrophils # 5.6 K/mcL (1.6-8.9); Platelet Count 155 K/mcL (140-400); Red Blood Count 2.86 M/mcL (4.19-5.50); Segmented Neutrophils % 74.2 %; White Blood Count 7.5 K/mcL (4.3-11.1)
[2019-07-07 12:39] LABS: Bilirubin,Urine Negative (Negative); Blood,Urine Large (Negative); Clarity,Urine Cloudy (Clear); Color,Urine Yellow (Yellow); Glucose,Urine (UA) Normal (Normal); Ketones,Urine Trace mg/dL (Negative); Leukocyte Esterase,Urine Trace (Negative); Nitrite,Urine Negative (Negative); PH,Urine 6.5 pH Units (5.0-8.0); Protein,Urine 100 mg/dL (Neg-Trace); Specific Gravity,Urine 1.018 (1.010-1.025); Urobilinogen,Urine Normal (Normal)
[2019-07-07 12:40] LABS: BUN/Creatinine Ratio 27 (6-26); Blood Urea Nitrogen 12 mg/dL (8-23); Calcium 7.3 mg/dL (8.6-10.3); Carbon Dioxide 26 mEq/L (23-29); Chloride 110 mEq/L (98-107); Glucose 130 mg/dL (70-105); Osmolality,Calculated 292 (280-300); Potassium 3.1 mEq/L (3.5-5.1); Sodium 140 mEq/L (136-145); eGFR For African Americans > 60 (> 60); eGFR For Non-African Americans > 60 (> 60)
[2019-07-07 12:58] LABS: Bacteria,Urine Few per hpf (None-Few); Squamous Epithelial Cell,Urine Few per lpf (None-Few)
[2019-07-07 12:59] LABS: RBC,Urine 50-100 per hpf (0-3)
[2019-07-07] MEDS ORDERED: Furosemide 40 MG/4 ML VIAL IVP ONE ×3 (15:12→21:00)
[2019-07-07] MEDS ORDERED: *HR* LORazepam 2 MG/ML VIAL IVP PRN ×2 (16:56)
[2019-07-07] MEDS ORDERED: *HR* Promethazine 25 MG/ML VIAL IVP PRN (16:56)
[2019-07-07] MEDS ORDERED: Clinimix E 5%-15% SOLUTION 2,000 ML with MVI, adult with vitamin K 10 ML IVC SCH ×3 (17:00)
[2019-07-07 18:22] LABS: Basophils % 0.5 %; Eosinophils # 0.1 K/mcL (0.0-0.6); Eosinophils % 1.3 %; Hematocrit 28.8 % (37.5-50.1); Hemoglobin 9.7 g/dL (12.9-16.9); Immature Granulocytes % 1.7 % (0-4); Lymphocytes # 0.7 K/mcL (0.6-4.6); Lymphocytes % 9.3 %; Mean Corpuscular HGB Conc 33.7 g/dL (31.6-35.5); Mean Corpuscular Hemoglobin 32.1 pg (28.0-33.3); Mean Corpuscular Volume 95.4 fL (83.0-100.0); Mean Platelet Volume 10.2 fL (9.4-12.4); Monocytes # 1.3 K/mcL (0.0-1.3); Neutrophils # 5.6 K/mcL (1.6-8.9); Platelet Count 169 K/mcL (140-400); Red Blood Count 3.02 M/mcL (4.19-5.50); Red Cell Distribution Width 14.9 % (11.5-14.5); Segmented Neutrophils % 71.2 %; White Blood Count 7.9 K/mcL (4.3-11.1)
[2019-07-07 18:42] LABS: BUN/Creatinine Ratio 28 (6-26); Blood Urea Nitrogen 12 mg/dL (8-23); Calcium 7.4 mg/dL (8.6-10.3); Carbon Dioxide 26 mEq/L (23-29); Chloride 107 mEq/L (98-107); Glucose 125 mg/dL (70-105); Osmolality,Calculated 293 (280-300); Phosphorous 3.8 mg/dL (2.7-4.5); Potassium 3.2 mEq/L (3.5-5.1); Sodium 141 mEq/L (136-145); eGFR For African Americans > 60 (> 60); eGFR For Non-African Americans > 60 (> 60)
[2019-07-07] MEDS: Morphine Sulfate Oral CONC 10 MG/0.5 ML ORAL.SYG SL PRN (23:12)
[2019-07-08] MEDS: *HR* Metoprolol 5 MG/5 ML VIAL IVP SCH ×5 (00:19→23:20)
[2019-07-08 00:33] LABS: Magnesium 1.8 mg/dL (1.6-2.6)
[2019-07-08] MEDS: Dexmedetomidine HCl 400 MCG/100 ML MLS IVC SCH ×4 (00:51→23:18)
[2019-07-08 02:54] LABS: VBG Ionized Calcium 0.91 mmol/L (1.15-1.35)
[2019-07-08 02:59] LABS: Basophils % 0.5 %; Eosinophils # 0.1 K/mcL (0.0-0.6); Eosinophils % 1.6 %; Immature Granulocytes % 3.1 % (0-4); Lymphocytes # 0.8 K/mcL (0.6-4.6); Lymphocytes % 8.5 %; Mean Corpuscular HGB Conc 33.3 g/dL (31.6-35.5); Mean Corpuscular Hemoglobin 32.3 pg (28.0-33.3); Mean Corpuscular Volume 96.8 fL (83.0-100.0); Mean Platelet Volume 10.5 fL (9.4-12.4); Monocytes # 1.1 K/mcL (0.0-1.3); Monocytes % 12.7 %; Neutrophils # 6.5 K/mcL (1.6-8.9); Platelet Count 184 K/mcL (140-400); Red Cell Distribution Width 14.9 % (11.5-14.5); Segmented Neutrophils % 73.6 %; White Blood Count 8.9 K/mcL (4.3-11.1)
[2019-07-08 03:13] LABS: BUN/Creatinine Ratio 30 (6-26); Blood Urea Nitrogen 13 mg/dL (8-23); Calcium 7.4 mg/dL (8.6-10.3); Carbon Dioxide 26 mEq/L (23-29); Chloride 104 mEq/L (98-107); Glucose 129 mg/dL (70-105); Magnesium 1.8 mg/dL (1.6-2.6); Osmolality,Calculated 290 (280-300); Phosphorous 4.4 mg/dL (2.7-4.5); Potassium 3.6 mEq/L (3.5-5.1); Sodium 139 mEq/L (136-145); eGFR For African Americans > 60 (> 60); eGFR For Non-African Americans > 60 (> 60)
[2019-07-08] MEDS: Calcium Gluconate 1gm/50mL 1 GM/50 ML BAG IVPB PRN ×4 (03:37→20:37)
[2019-07-08] MEDS: Ipratropium/Albuterol Neb 3 ML IH SCH ×5 (03:41→19:52)
[2019-07-08] MEDS: *HR* Heparin 5,000 UNIT/ML VIAL SQ SCH ×2 (05:31→17:31)
[2019-07-08] MEDS ORDERED: Perflutren Lipid Microsphere 1.3 ML in 0.9 % Sodium Chloride 8.7 ML IVP ONE (07:52)
[2019-07-08] MEDS: Pantoprazole 40 MG VIAL IVP SCH ×2 (08:23→19:52)
[2019-07-08 10:14] LABS: Basophils # 0.1 K/mcL (0.0-0.2); Basophils % 0.6 %; Eosinophils # 0.2 K/mcL (0.0-0.6); Eosinophils % 2.3 %; Hemoglobin 10.1 g/dL (12.9-16.9); Lymphocytes # 0.7 K/mcL (0.6-4.6); Lymphocytes % 8.4 %; Mean Corpuscular HGB Conc 33.7 g/dL (31.6-35.5); Mean Corpuscular Hemoglobin 32.1 pg (28.0-33.3); Mean Corpuscular Volume 95.2 fL (83.0-100.0); Mean Platelet Volume 10.4 fL (9.4-12.4); Monocytes # 0.9 K/mcL (0.0-1.3); Monocytes % 10.6 %; Neutrophils # 6.6 K/mcL (1.6-8.9); Platelet Count 188 K/mcL (140-400); Red Blood Count 3.15 M/mcL (4.19-5.50); Red Cell Distribution Width 14.9 % (11.5-14.5); Segmented Neutrophils % 74.1 %; White Blood Count 8.9 K/mcL (4.3-11.1)
[2019-07-08 10:44] LABS: VBG Ionized Calcium 1.02 mmol/L (1.15-1.35)
[2019-07-08 15:18] LABS: VBG Ionized Calcium 1.07 mmol/L (1.15-1.35)
[2019-07-08] MEDS ORDERED: Clinimix E 5%-15% SOLUTION 2,000 ML with MVI, adult with vitamin K 10 ML IVC SCH ×3 (17:00)
[2019-07-08 20:19] LABS: VBG Ionized Calcium 1.06 mmol/L (1.15-1.35)
[2019-07-09] MEDS: Ipratropium/Albuterol Neb 3 ML IH SCH ×7 (00:21→23:57)
[2019-07-09 04:17] LABS: VBG Ionized Calcium 1.08 mmol/L (1.15-1.35)
[2019-07-09 04:29] LABS: Basophils # 0.1 K/mcL (0.0-0.2); Basophils % 0.7 %; Eosinophils # 0.3 K/mcL (0.0-0.6); Eosinophils % 3.4 %; Hematocrit 30.2 % (37.5-50.1); Hemoglobin 10.1 g/dL (12.9-16.9); Immature Granulocytes % 6.4 % (0-4); Mean Corpuscular HGB Conc 33.4 g/dL (31.6-35.5); Mean Corpuscular Hemoglobin 31.7 pg (28.0-33.3); Mean Corpuscular Volume 94.7 fL (83.0-100.0); Mean Platelet Volume 10.6 fL (9.4-12.4); Monocytes # 0.9 K/mcL (0.0-1.3); Monocytes % 9.6 %; Neutrophils # 6.7 K/mcL (1.6-8.9); Platelet Count 191 K/mcL (140-400); Red Blood Count 3.19 M/mcL (4.19-5.50); Red Cell Distribution Width 14.6 % (11.5-14.5); Segmented Neutrophils % 69.9 %; White Blood Count 9.6 K/mcL (4.3-11.1)
[2019-07-09 04:37] LABS: BUN/Creatinine Ratio 27 (6-26); Blood Urea Nitrogen 12 mg/dL (8-23); Calcium 8.2 mg/dL (8.6-10.3); Carbon Dioxide 23 mEq/L (23-29); Chloride 103 mEq/L (98-107); Glucose 131 mg/dL (70-105); Magnesium 1.9 mg/dL (1.6-2.6); Osmolality,Calculated 282 (280-300); Phosphorous 3.5 mg/dL (2.7-4.5); Potassium 3.7 mEq/L (3.5-5.1); Sodium 135 mEq/L (136-145); eGFR For African Americans > 60 (> 60); eGFR For Non-African Americans > 60 (> 60)
[2019-07-09] MEDS: *HR* Heparin 5,000 UNIT/ML VIAL SQ SCH ×2 (05:16→18:44)
[2019-07-09] MEDS: Calcium Gluconate 1gm/50mL 1 GM/50 ML BAG IVPB PRN (05:16)
[2019-07-09] MEDS: *HR* Metoprolol 5 MG/5 ML VIAL IVP SCH (05:24)
[2019-07-09] MEDS: Dexmedetomidine HCl 400 MCG/100 ML MLS IVC SCH (06:06)
[2019-07-09 06:19] LABS: Platelet Estimate Normal (Normal)
[2019-07-09] MEDS ORDERED: Furosemide 20 MG/2 ML VIAL IVP ONE (09:06)
[2019-07-09] MEDS: Pantoprazole 40 MG VIAL IVP SCH (09:48)
[2019-07-09] MEDS: Metoprolol XL (24 HR) Succ 50 MG TAB.ER.24H PO SCH ×3 (09:48→13:55)
[2019-07-09 10:28] LABS: BUN/Creatinine Ratio 32 (6-26); Blood Urea Nitrogen 14 mg/dL (8-23); Calcium 8.5 mg/dL (8.6-10.3); Carbon Dioxide 24 mEq/L (23-29); Chloride 101 mEq/L (98-107); Glucose 163 mg/dL (70-105); Osmolality,Calculated 282 (280-300); Potassium 3.8 mEq/L (3.5-5.1); Sodium 134 mEq/L (136-145); eGFR For African Americans > 60 (> 60); eGFR For Non-African Americans > 60 (> 60)
[2019-07-09] MEDS: Morphine Sulfate Oral CONC 10 MG/0.5 ML ORAL.SYG SL PRN ×2 (11:17→17:30)
[2019-07-09] MEDS ORDERED: Clinimix E 5%-15% SOLUTION 2,000 ML with MVI, adult with vitamin K 10 ML IVC SCH ×3 (12:15→18:47)
[2019-07-09] MEDS ORDERED: Potassium Chloride Elixir 20 MEQ/15 ML UDC PO ONE (12:25)
[2019-07-09 17:27] LABS: VBG Ionized Calcium 1.12 mmol/L (1.15-1.35)
[2019-07-09 17:46] LABS: Magnesium 2.1 mg/dL (1.6-2.6)
[2019-07-09] MEDS ORDERED: D10% in Water 500 ML IVC PRN (18:47)
[2019-07-09] MEDS ORDERED: *HR* LORazepam 2 MG/ML VIAL IVP PRN ×2 (18:47)
[2019-07-09] MEDS ORDERED: *HR* Promethazine 25 MG/ML VIAL IVP PRN (18:47)
[2019-07-10] MEDS: Morphine Sulfate Oral CONC 10 MG/0.5 ML ORAL.SYG SL PRN ×4 (00:40→21:53)
[2019-07-10] MEDS: Ipratropium/Albuterol Neb 3 ML IH SCH ×6 (03:50→23:24)
[2019-07-10 04:52] LABS: BUN/Creatinine Ratio 39 (6-26); Blood Urea Nitrogen 19 mg/dL (8-23); Carbon Dioxide 25 mEq/L (23-29); Chloride 102 mEq/L (98-107); Glucose 113 mg/dL (70-105); Magnesium 2.1 mg/dL (1.6-2.6); Osmolality,Calculated 279 (280-300); Potassium 3.8 mEq/L (3.5-5.1); Sodium 133 mEq/L (136-145); eGFR For African Americans > 60 (> 60); eGFR For Non-African Americans > 60 (> 60)
[2019-07-10] MEDS: *HR* Heparin 5,000 UNIT/ML VIAL SQ SCH ×2 (05:40→18:24)
[2019-07-10] MEDS ORDERED: OLOPATADINE HCL BOTH EYES SCH (09:00)
[2019-07-10] MEDS ORDERED: Pantoprazole 40 MG VIAL IVP SCH (09:00)
[2019-07-10] MEDS ORDERED: Metoprolol XL (24 HR) Succ 50 MG TAB.ER.24H PO SCH (09:00)
[2019-07-10] MEDS ORDERED: NON-FORMULARY MEDICATION 1 EACH EACH (Metoprolol Succinate [Toprol Xl] 100 MG) PO SCH (09:00)
[2019-07-10] MEDS: Pantoprazole 40 MG VIAL IVP SCH (10:42)
[2019-07-10] MEDS ORDERED: Metoprolol XL (24 HR) Succ 50 MG TAB.ER.24H PO ONE (12:45)
[2019-07-10] MEDS ORDERED: D5% in Water 1,000 ML IVC PRN (14:50)
[2019-07-10] MEDS ORDERED: *HR* Dextrose 50 % in Water (Syg) 50 ML SYRINGE IVP PRN (14:50)
[2019-07-10] MEDS ORDERED: Dextrose Gel 15 GM/37.5 ML TUBE PO PRN ×2 (14:50)
[2019-07-10] MEDS: Furosemide 40 MG/4 ML VIAL IVP SCH (15:52)
[2019-07-10] MEDS ORDERED: Clinimix E 5%-15% SOLUTION 2,000 ML with MVI, adult with vitamin K 10 ML IVC SCH (17:00)
[2019-07-10] MEDS: Insulin LISPRO 300 UNITS/3 ML VIAL SQ SCH (18:24)
[2019-07-11] MEDS: Insulin LISPRO 300 UNITS/3 ML VIAL SQ SCH ×4 (00:06→18:00)
[2019-07-11] MEDS: Ipratropium/Albuterol Neb 3 ML IH SCH ×6 (03:33→23:49)
[2019-07-11 03:45] LABS: BUN/Creatinine Ratio 49 (6-26); Blood Urea Nitrogen 21 mg/dL (8-23); Carbon Dioxide 25 mEq/L (23-29); Chloride 100 mEq/L (98-107); Glucose 116 mg/dL (70-105); Osmolality,Calculated 282 (280-300); Phosphorous 3.9 mg/dL (2.7-4.5); Sodium 134 mEq/L (136-145); eGFR For African Americans > 60 (> 60); eGFR For Non-African Americans > 60 (> 60)
[2019-07-11] MEDS: *HR* Heparin 5,000 UNIT/ML VIAL SQ SCH ×2 (06:11→17:59)
[2019-07-11] MEDS: Morphine Sulfate Oral CONC 10 MG/0.5 ML ORAL.SYG SL PRN (06:14)
[2019-07-11] MEDS: Furosemide 40 MG/4 ML VIAL IVP SCH (08:19)
[2019-07-11] MEDS: Pantoprazole 40 MG VIAL IVP SCH (08:20)
[2019-07-11] MEDS ORDERED: Metoprolol XL (24 HR) Succ 50 MG TAB.ER.24H PO SCH ×2 (09:00)
[2019-07-11] MEDS ORDERED: Metoprolol XL (24 HR) Succ 50 MG TAB.ER.24H PO ONE (10:00)
[2019-07-11] MEDS: Ketorolac 30 MG/ML VIAL IVP SCH ×2 (12:00→18:00)
[2019-07-11] MEDS: Acetaminophen IV 1,000 MG/100 ML INFUS..BTL IVPB SCH ×2 (12:01→18:01)
[2019-07-11] MEDS: Metoclopramide 10 MG/2 ML VIAL IVP SCH ×2 (12:40→17:59)
[2019-07-11] MEDS ORDERED: Clinimix E 5%-15% SOLUTION 2,000 ML with MVI, adult with vitamin K 10 ML IVC SCH (17:00)
[2019-07-12] MEDS: Insulin LISPRO 300 UNITS/3 ML VIAL SQ SCH ×4 (00:24→20:54)
[2019-07-12] MEDS: Ketorolac 30 MG/ML VIAL IVP SCH ×4 (00:44→17:16)
[2019-07-12] MEDS: Metoclopramide 10 MG/2 ML VIAL IVP SCH ×4 (00:44→17:16)
[2019-07-12] MEDS: Acetaminophen IV 1,000 MG/100 ML INFUS..BTL IVPB SCH ×4 (00:44→17:29)
[2019-07-12] MEDS: Morphine Sulfate Oral CONC 10 MG/0.5 ML ORAL.SYG SL PRN ×2 (03:14→10:43)
[2019-07-12] MEDS: Ipratropium/Albuterol Neb 3 ML IH SCH ×6 (03:44→23:55)
[2019-07-12 06:03] LABS: BUN/Creatinine Ratio 58 (6-26); Blood Urea Nitrogen 32 mg/dL (8-23); Calcium 8.1 mg/dL (8.6-10.3); Carbon Dioxide 26 mEq/L (23-29); Chloride 97 mEq/L (98-107); Glucose 124 mg/dL (70-105); Magnesium 2.2 mg/dL (1.6-2.6); Osmolality,Calculated 282 (280-300); Phosphorous 4.8 mg/dL (2.7-4.5); Potassium 3.7 mEq/L (3.5-5.1); Sodium 132 mEq/L (136-145); eGFR For African Americans > 60 (> 60); eGFR For Non-African Americans > 60 (> 60)
[2019-07-12] MEDS: *HR* Heparin 5,000 UNIT/ML VIAL SQ SCH ×2 (06:11→17:12)
[2019-07-12 06:32] LABS: Hematocrit 28.4 % (37.5-50.1); Hemoglobin 9.6 g/dL (12.9-16.9); Mean Corpuscular HGB Conc 33.8 g/dL (31.6-35.5); Mean Corpuscular Hemoglobin 31.5 pg (28.0-33.3); Mean Corpuscular Volume 93.1 fL (83.0-100.0); Mean Platelet Volume 10.3 fL (9.4-12.4); Platelet Count 300 K/mcL (140-400); Red Blood Count 3.05 M/mcL (4.19-5.50); Red Cell Distribution Width 14.8 % (11.5-14.5); White Blood Count 11.5 K/mcL (4.3-11.1)
[2019-07-12 06:56] LABS: Lymphocytes # 1.4 K/mcL (0.6-4.6); Monocytes # 1.6 K/mcL (0.0-1.3); Neutrophils # 8.5 K/mcL (1.6-8.9); Platelet Estimate Normal (Normal)
[2019-07-12] MEDS: Furosemide 40 MG/4 ML VIAL IVP SCH (10:41)
[2019-07-12] MEDS: Pantoprazole 40 MG VIAL IVP SCH (10:42)
[2019-07-12] MEDS: Metoprolol XL (24 HR) Succ 50 MG TAB.ER.24H PO SCH (10:43)
[2019-07-12] MEDS ORDERED: Methylnaltrexone 12 MG/0.6 ML SYRINGE SQ ONE (14:56)
[2019-07-12] MEDS ORDERED: Clinimix E 5%-15% SOLUTION 2,000 ML with MVI, adult with vitamin K 10 ML, Trace Eleme... IVC SCH (17:00)
[2019-07-12] MEDS ORDERED: Clinimix E 5%-15% SOLUTION 2,000 ML, Parenteral Amino Acid 10% 0 ML with MVI, adult wi... IVC SCH (17:00)
[2019-07-13] MEDS: Acetaminophen IV 1,000 MG/100 ML INFUS..BTL IVPB SCH ×2 (00:01→06:24)
[2019-07-13] MEDS: Ketorolac 30 MG/ML VIAL IVP SCH ×2 (00:16→06:25)
[2019-07-13] MEDS: Metoclopramide 10 MG/2 ML VIAL IVP SCH ×4 (00:16→17:11)
[2019-07-13] MEDS: Insulin LISPRO 300 UNITS/3 ML VIAL SQ SCH ×7 (00:52→23:56)
[2019-07-13] MEDS: Ipratropium/Albuterol Neb 3 ML IH SCH ×5 (04:05→20:28)
[2019-07-13 06:17] LABS: BUN/Creatinine Ratio 53 (6-26); Blood Urea Nitrogen 24 mg/dL (8-23); Calcium 7.9 mg/dL (8.6-10.3); Carbon Dioxide 27 mEq/L (23-29); Chloride 101 mEq/L (98-107); Glucose 105 mg/dL (70-105); Magnesium 2.2 mg/dL (1.6-2.6); Osmolality,Calculated 280 (280-300); Phosphorous 4.2 mg/dL (2.7-4.5); Potassium 3.7 mEq/L (3.5-5.1); Sodium 133 mEq/L (136-145); eGFR For African Americans > 60 (> 60); eGFR For Non-African Americans > 60 (> 60)
[2019-07-13] MEDS: *HR* Heparin 5,000 UNIT/ML VIAL SQ SCH ×2 (06:25→17:11)
[2019-07-13] MEDS: Metoprolol XL (24 HR) Succ 50 MG TAB.ER.24H PO SCH (10:03)
[2019-07-13] MEDS: Furosemide 40 MG/4 ML VIAL IVP SCH (10:03)
[2019-07-13] MEDS: Pantoprazole 40 MG VIAL IVP SCH (10:05)
[2019-07-13] MEDS: Ibuprofen 800 MG TABLET PO SCH ×2 (15:43→21:14)
[2019-07-13] MEDS ORDERED: Clinimix E 5%-15% SOLUTION 2,000 ML with MVI, adult with vitamin K 10 ML IVC SCH (17:00)
[2019-07-14] MEDS: Ipratropium/Albuterol Neb 3 ML IH SCH ×7 (00:06→23:59)
[2019-07-14] MEDS: Metoclopramide 10 MG/2 ML VIAL IVP SCH ×4 (00:23→17:52)
[2019-07-14] MEDS: Insulin LISPRO 300 UNITS/3 ML VIAL SQ SCH ×5 (04:07→22:01)
[2019-07-14 04:20] LABS: BUN/Creatinine Ratio 38 (6-26); Blood Urea Nitrogen 16 mg/dL (8-23); Calcium 8.1 mg/dL (8.6-10.3); Carbon Dioxide 25 mEq/L (23-29); Chloride 103 mEq/L (98-107); Glucose 98 mg/dL (70-105); Magnesium 2.1 mg/dL (1.6-2.6); Osmolality,Calculated 281 (280-300); Phosphorous 4.1 mg/dL (2.7-4.5); Potassium 4.4 mEq/L (3.5-5.1); Sodium 135 mEq/L (136-145); eGFR For African Americans > 60 (> 60); eGFR For Non-African Americans > 60 (> 60)
[2019-07-14] MEDS: *HR* Heparin 5,000 UNIT/ML VIAL SQ SCH ×2 (06:02→17:50)
[2019-07-14] MEDS: Acetaminophen 325 MG TABLET PO PRN ×2 (08:28→19:52)
[2019-07-14] MEDS: Pantoprazole 40 MG VIAL IVP SCH (08:28)
[2019-07-14] MEDS: Metoprolol XL (24 HR) Succ 50 MG TAB.ER.24H PO SCH (08:29)
[2019-07-14] MEDS: Furosemide 40 MG TABLET PO SCH (08:29)
[2019-07-14] MEDS: Ibuprofen 800 MG TABLET PO SCH ×3 (08:29→19:54)
[2019-07-14] MEDS ORDERED: Clinimix E 5%-15% SOLUTION 2,000 ML with MVI, adult with vitamin K 10 ML IVC SCH (17:00)
[2019-07-15] MEDS: Insulin LISPRO 300 UNITS/3 ML VIAL SQ SCH ×3 (01:51→07:48)
[2019-07-15] MEDS: Metoclopramide 10 MG/2 ML VIAL IVP SCH ×5 (01:51→23:58)
[2019-07-15 04:31] LABS: BUN/Creatinine Ratio 40 (6-26); Blood Urea Nitrogen 29 mg/dL (8-23); Calcium 8.1 mg/dL (8.6-10.3); Carbon Dioxide 23 mEq/L (23-29); Chloride 97 mEq/L (98-107); Glucose 93 mg/dL (70-105); Magnesium 2.2 mg/dL (1.6-2.6); Osmolality,Calculated 280 (280-300); Phosphorous 6.2 mg/dL (2.7-4.5); Potassium 4.4 mEq/L (3.5-5.1); Sodium 132 mEq/L (136-145); eGFR For African Americans > 60 (> 60); eGFR For Non-African Americans > 60 (> 60)
[2019-07-15] MEDS: Ipratropium/Albuterol Neb 3 ML IH SCH ×6 (04:34→23:42)
[2019-07-15] MEDS: *HR* Heparin 5,000 UNIT/ML VIAL SQ SCH ×2 (05:26→17:54)
[2019-07-15] MEDS: Acetaminophen 325 MG TABLET PO PRN ×2 (10:52→16:55)
[2019-07-15] MEDS: Furosemide 40 MG TABLET PO SCH (10:53)
[2019-07-15] MEDS: Metoprolol XL (24 HR) Succ 50 MG TAB.ER.24H PO SCH (10:53)
[2019-07-15] MEDS: Pantoprazole 40 MG VIAL IVP SCH (10:53)
[2019-07-15] MEDS: Ibuprofen 800 MG TABLET PO SCH ×3 (10:53→20:32)
[2019-07-15] MEDS ORDERED: Clinimix E 5%-15% SOLUTION 2,000 ML with MVI, adult with vitamin K 10 ML IVC SCH (17:00)
[2019-07-16] MEDS: Ipratropium/Albuterol Neb 3 ML IH SCH ×3 (03:28→11:44)
[2019-07-16] MEDS: Acetaminophen 325 MG TABLET PO PRN ×2 (04:08→11:45)
[2019-07-16 04:40] LABS: BUN/Creatinine Ratio 37 (6-26); Blood Urea Nitrogen 29 mg/dL (8-23); Calcium 8.1 mg/dL (8.6-10.3); Carbon Dioxide 24 mEq/L (23-29); Chloride 99 mEq/L (98-107); Glucose 106 mg/dL (70-105); Magnesium 2.2 mg/dL (1.6-2.6); Osmolality,Calculated 272 (280-300); Potassium 3.9 mEq/L (3.5-5.1); Sodium 128 mEq/L (136-145); eGFR For African Americans > 60 (> 60); eGFR For Non-African Americans > 60 (> 60)
[2019-07-16] MEDS: Metoclopramide 10 MG/2 ML VIAL IVP SCH ×2 (05:20→11:43)
[2019-07-16] MEDS: *HR* Heparin 5,000 UNIT/ML VIAL SQ SCH (05:21)
[2019-07-16 06:53] VITALS: BP 102/59
[2019-07-16] MEDS: Furosemide 40 MG TABLET PO SCH (08:02)
[2019-07-16] MEDS: Metoprolol XL (24 HR) Succ 50 MG TAB.ER.24H PO SCH (08:03)
[2019-07-16] MEDS: Ibuprofen 800 MG TABLET PO SCH (08:03)
[2019-07-16] MEDS: Pantoprazole 40 MG VIAL IVP SCH (08:03)
[2019-07-16] MEDS ORDERED: *HR* OxyCODONE/APAP 5/325 TABLET PO PRN (08:11)
== END 2019-07-16 13:54 | DRG 335 ==
LOC: 3BNU 05:04 → EMEROOARM 05:04 → 3BNU 09:14 → ICNU 07-07 10:53 → 3ANU 07-09 22:08
PROVIDERS: ADMIT Surgery; ATTEND Surgery

== ENCOUNTER 2019-12-02 14:23 | Inpatient (IN) ==
[2019-12-02] MEDS ORDERED: 0.9 % Sodium Chloride 1,000 ML IVC ONE (14:31)
[2019-12-02 15:20] LABS: Basophils # 0.1 K/mcL (0.0-0.2); Basophils % 0.5 %; Eosinophils % 0.3 %; Hematocrit 38.5 % (37.5-50.1); Hemoglobin 13.4 g/dL (12.9-16.9); Immature Granulocytes % 1.3 % (0-4); Lymphocytes # 1.1 K/mcL (0.6-4.6); Mean Corpuscular HGB Conc 34.8 g/dL (31.6-35.5); Mean Corpuscular Hemoglobin 30.3 pg (28.0-33.3); Mean Corpuscular Volume 87.1 fL (83.0-100.0); Mean Platelet Volume 9.8 fL (9.4-12.4); Monocytes # 1.1 K/mcL (0.0-1.3); Neutrophils # 10.1 K/mcL (1.6-8.9); Platelet Count 289 K/mcL (140-400); Red Blood Count 4.42 M/mcL (4.19-5.50); Red Cell Distribution Width 14.6 % (11.5-14.5); Segmented Neutrophils % 79.9 %; White Blood Count 12.7 K/mcL (4.3-11.1)
[2019-12-02 15:26] LABS: Prothrombin Time 10.9 Seconds (9.4-12.1)
[2019-12-02 15:29] LABS: Activated Partial Thrombo Time 27.1 Seconds (26.0-36.0)
[2019-12-02 16:00] LABS: BUN/Creatinine Ratio 16 (6-26); Blood Urea Nitrogen 9 mg/dL (8-23); Calcium 8.4 mg/dL (8.6-10.3); Carbon Dioxide 24 mEq/L (23-29); Chloride 86 mEq/L (98-107); Glucose 126 mg/dL (70-105); Osmolality,Calculated 250 (280-300); Potassium 3.7 mEq/L (3.5-5.1); Sodium 120 mEq/L (136-145); Troponin I < 0.03 ng/mL (< 0.04); eGFR For African Americans > 60 (> 60); eGFR For Non-African Americans > 60 (> 60)
[2019-12-02] MEDS ORDERED: Naloxone 0.4 MG/ML INJ IVP PRN (16:58)
[2019-12-02 17:23] LABS: BUN/Creatinine Ratio 16 (6-26); Blood Urea Nitrogen 8 mg/dL (8-23); Carbon Dioxide 25 mEq/L (23-29); Chloride 89 mEq/L (98-107); Ethanol < 10 mg/dL (Less than 10); Glucose 96 mg/dL (70-105); Osmolality,Calculated 252 (280-300); Potassium 3.4 mEq/L (3.5-5.1); Sodium 122 mEq/L (136-145); eGFR For African Americans > 60 (> 60); eGFR For Non-African Americans > 60 (> 60)
[2019-12-02 18:31] LABS: Bilirubin,Urine Negative (Negative); Blood,Urine Negative (Negative); Clarity,Urine Clear (Clear); Color,Urine Yellow (Yellow); Glucose,Urine (UA) Normal (Normal); Ketones,Urine Negative (Negative); Leukocyte Esterase,Urine Negative (Negative); Nitrite,Urine Negative (Negative); Protein,Urine Negative (Neg-Trace); Specific Gravity,Urine 1.008 (1.010-1.025); Urobilinogen,Urine Normal (Normal)
[2019-12-02] MEDS: 0.9 % Sodium Chloride w KCl 20 MEQ/1,000 ML MLS IVC SCH (19:03)
[2019-12-02 19:08] LABS: Creatinine,Urine 11 mg/dL; Sodium, Urine 58.4 mEq/L
[2019-12-02] MEDS: *HR* HYDROcodone/Acet 5/325 mg TABLET PO PRN (19:45)
[2019-12-03 02:51] LABS: Basophils # 0.1 K/mcL (0.0-0.2); Basophils % 0.5 %; Eosinophils # 0.1 K/mcL (0.0-0.6); Eosinophils % 0.8 %; Hematocrit 31.8 % (37.5-50.1); Immature Granulocytes % 0.5 % (0-4); Lymphocytes # 1.7 K/mcL (0.6-4.6); Lymphocytes % 16.9 %; Mean Corpuscular HGB Conc 34.6 g/dL (31.6-35.5); Mean Corpuscular Hemoglobin 30.2 pg (28.0-33.3); Mean Corpuscular Volume 87.4 fL (83.0-100.0); Mean Platelet Volume 9.8 fL (9.4-12.4); Monocytes # 1.2 K/mcL (0.0-1.3); Monocytes % 12.1 %; Neutrophils # 6.9 K/mcL (1.6-8.9); Platelet Count 278 K/mcL (140-400); Red Blood Count 3.64 M/mcL (4.19-5.50); Red Cell Distribution Width 14.6 % (11.5-14.5); Segmented Neutrophils % 69.2 %; White Blood Count 9.9 K/mcL (4.3-11.1)
[2019-12-03 02:54] LABS: Alanine Aminotransferase 10 Units/L (7-52); Albumin 3.3 g/dL (3.5-5.7); Albumin/Globulin Ratio 1.4 (1.1-2.2); Alkaline Phosphatase 65 Units/L (34-104); Aspartate Amino Transferase 11 Units/L (13-39); BUN/Creatinine Ratio 21 (6-26); Bilirubin,Total 0.3 mg/dL (0.3-1.0); Blood Urea Nitrogen 13 mg/dL (8-23); Carbon Dioxide 26 mEq/L (23-29); Chloride 94 mEq/L (98-107); Globulin 2.3 g/dL (2.4-3.5); Glucose 113 mg/dL (70-105); Osmolality,Calculated 263 (280-300); Potassium 3.7 mEq/L (3.5-5.1); Sodium 126 mEq/L (136-145); Total Protein 5.6 g/dL (6.4-8.9); eGFR For African Americans > 60 (> 60); eGFR For Non-African Americans > 60 (> 60)
[2019-12-03] MEDS: *HR* HYDROcodone/Acet 5/325 mg TABLET PO PRN ×3 (05:19→23:03)
[2019-12-03] MEDS: 0.9 % Sodium Chloride w KCl 20 MEQ/1,000 ML MLS IVC SCH ×2 (08:50→23:02)
[2019-12-03] MEDS: Lisinopril 20 MG TABLET PO SCH (10:22)
[2019-12-03] MEDS: *HR* Heparin 5,000 UNIT/ML VIAL SQ SCH (20:22)
[2019-12-04] MEDS: *HR* Heparin 5,000 UNIT/ML VIAL SQ SCH ×4 (05:27→21:35)
[2019-12-04 06:38] LABS: Hematocrit 32.3 % (37.5-50.1); Hemoglobin 11.2 g/dL (12.9-16.9); Immature Platelets 2.8 % (1.1-6.1); Mean Corpuscular HGB Conc 34.7 g/dL (31.6-35.5); Mean Corpuscular Hemoglobin 30.7 pg (28.0-33.3); Mean Corpuscular Volume 88.5 fL (83.0-100.0); Red Blood Count 3.65 M/mcL (4.19-5.50); Red Cell Distribution Width 15.1 % (11.5-14.5); White Blood Count 10.1 K/mcL (4.3-11.1)
[2019-12-04 07:05] LABS: BUN/Creatinine Ratio 20 (6-26); Blood Urea Nitrogen 9 mg/dL (8-23); Carbon Dioxide 24 mEq/L (23-29); Chloride 100 mEq/L (98-107); Glucose 101 mg/dL (70-105); Osmolality,Calculated 267 (280-300); Potassium 4.2 mEq/L (3.5-5.1); Sodium 129 mEq/L (136-145); eGFR For African Americans > 60 (> 60); eGFR For Non-African Americans > 60 (> 60)
[2019-12-04] MEDS: Lisinopril 20 MG TABLET PO SCH (09:33)
[2019-12-04] MEDS: 0.9 % Sodium Chloride w KCl 20 MEQ/1,000 ML MLS IVC SCH (11:48)
[2019-12-04] MEDS: *HR* HYDROcodone/Acet 5/325 mg TABLET PO PRN (14:08)
[2019-12-04] MEDS: carvediloL 6.25 MG TABLET PO SCH ×2 (14:11→21:31)
[2019-12-04] MEDS ORDERED: Loratadine 10 MG TABLET PO PRN (14:12)
[2019-12-04] MEDS ORDERED: Acetaminophen 325 MG TABLET PO PRN (14:12)
[2019-12-04] MEDS ORDERED: Nitroglycerin 0.4 MG TAB.SUBL SL PRN (14:12)
[2019-12-04] MEDS: Gabapentin 300 MG CAPSULE PO SCH (21:31)
[2019-12-05] MEDS: *HR* HYDROcodone/Acet 5/325 mg TABLET PO PRN ×3 (01:46→16:16)
[2019-12-05] MEDS ORDERED: Menthol 9.1 MG LOZENGE PO PRN (01:47)
[2019-12-05] MEDS: *HR* Heparin 5,000 UNIT/ML VIAL SQ SCH ×3 (05:39→19:47)
[2019-12-05] MEDS: Gabapentin 300 MG CAPSULE PO SCH ×2 (07:57→19:48)
[2019-12-05] MEDS: carvediloL 6.25 MG TABLET PO SCH ×2 (07:57→16:17)
[2019-12-05] MEDS: Lisinopril 20 MG TABLET PO SCH (07:59)
[2019-12-05 08:05] LABS: BUN/Creatinine Ratio 24 (6-26); Blood Urea Nitrogen 14 mg/dL (8-23); Calcium 8.3 mg/dL (8.6-10.3); Carbon Dioxide 23 mEq/L (23-29); Chloride 97 mEq/L (98-107); Glucose 93 mg/dL (70-105); Osmolality,Calculated 264 (280-300); Potassium 4.3 mEq/L (3.5-5.1); Sodium 127 mEq/L (136-145); eGFR For African Americans > 60 (> 60); eGFR For Non-African Americans > 60 (> 60)
[2019-12-05 08:53] LABS: Hematocrit 33.7 % (37.5-50.1); Hemoglobin 11.5 g/dL (12.9-16.9); Mean Corpuscular HGB Conc 34.1 g/dL (31.6-35.5); Mean Corpuscular Hemoglobin 30.6 pg (28.0-33.3); Mean Corpuscular Volume 89.6 fL (83.0-100.0); Platelet Count 279 K/mcL (140-400); Red Blood Count 3.76 M/mcL (4.19-5.50); Red Cell Distribution Width 15.2 % (11.5-14.5); White Blood Count 11.2 K/mcL (4.3-11.1)
[2019-12-06] MEDS: *HR* Heparin 5,000 UNIT/ML VIAL SQ SCH (05:27)
[2019-12-06] MEDS: *HR* HYDROcodone/Acet 5/325 mg TABLET PO PRN (06:02)
[2019-12-06 06:46] LABS: Hematocrit 33.9 % (37.5-50.1); Hemoglobin 11.4 g/dL (12.9-16.9); Mean Corpuscular HGB Conc 33.6 g/dL (31.6-35.5); Mean Corpuscular Hemoglobin 29.7 pg (28.0-33.3); Mean Corpuscular Volume 88.3 fL (83.0-100.0); Platelet Count 268 K/mcL (140-400); Red Blood Count 3.84 M/mcL (4.19-5.50); Red Cell Distribution Width 15.2 % (11.5-14.5); White Blood Count 8.2 K/mcL (4.3-11.1)
[2019-12-06 06:55] LABS: BUN/Creatinine Ratio 33 (6-26); Blood Urea Nitrogen 16 mg/dL (8-23); Calcium 8.2 mg/dL (8.6-10.3); Carbon Dioxide 21 mEq/L (23-29); Chloride 98 mEq/L (98-107); Glucose 98 mg/dL (70-105); Osmolality,Calculated 271 (280-300); Potassium 4.8 mEq/L (3.5-5.1); Sodium 130 mEq/L (136-145); eGFR For African Americans > 60 (> 60); eGFR For Non-African Americans > 60 (> 60)
[2019-12-06 07:54] VITALS: BP 130/73
[2019-12-06] MEDS: Lisinopril 20 MG TABLET PO SCH (07:56)
[2019-12-06] MEDS: Gabapentin 300 MG CAPSULE PO SCH (07:56)
[2019-12-06] MEDS: carvediloL 6.25 MG TABLET PO SCH (07:56)
== END 2019-12-06 12:03 | DRG 312 ==
LOC: EMEROOARM 14:23 → 2ANU 14:23 → SUATTDRO 16:25 → 2ANU 17:07 → SUATTDRO 12-03 13:35
PROVIDERS: ADMIT Internal Medicine; ATTEND Family Medicine

== ENCOUNTER 2021-05-27 09:40 | Inpatient (IN) ==
[2021-05-27] MEDS ORDERED: Vancomycin 1,000 MG VIAL IVPB ONE (10:15)
[2021-05-27] MEDS ORDERED: 0.9 % Sodium Chloride 1,000 ML IVC ONE (10:15)
[2021-05-27] MEDS ORDERED: Acetaminophen 325 MG TABLET PO ONE (10:15)
[2021-05-27 11:00] LABS: Basophils % 0.3 %; Eosinophils % 0.3 %; Hematocrit 39.5 % (37.5-50.1); Immature Granulocytes % 0.8 % (0-4); Lymphocytes # 1.1 K/mcL (0.6-4.6); Lymphocytes % 8.3 %; Mean Corpuscular HGB Conc 35.4 g/dL (31.6-35.5); Mean Corpuscular Hemoglobin 32.5 pg (28.0-33.3); Mean Corpuscular Volume 91.6 fL (83.0-100.0); Mean Platelet Volume 10.4 fL (9.4-12.4); Monocytes # 1.5 K/mcL (0.0-1.3); Monocytes % 11.2 %; Neutrophils # 10.3 K/mcL (1.6-8.9); Platelet Count 291 K/mcL (140-400); Red Blood Count 4.31 M/mcL (4.19-5.50); Red Cell Distribution Width 13.9 % (11.5-14.5); Segmented Neutrophils % 79.1 %
[2021-05-27 11:22] LABS: Alanine Aminotransferase 9 Units/L (7-52); Albumin 3.8 g/dL (3.5-5.7); Albumin/Globulin Ratio 1.1 (1.1-2.2); Alkaline Phosphatase 76 Units/L (34-104); Aspartate Amino Transferase 12 Units/L (13-39); BUN/Creatinine Ratio 16 (6-26); Bilirubin,Total 0.8 mg/dL (0.3-1.0); Blood Urea Nitrogen 7 mg/dL (8-23); Calcium 8.9 mg/dL (8.6-10.3); Carbon Dioxide 25 mEq/L (23-29); Chloride 93 mEq/L (98-107); Globulin 3.4 g/dL (2.4-3.5); Glucose 92 mg/dL (70-105); Osmolality,Calculated 270 (280-300); Potassium 3.4 mEq/L (3.5-5.1); Sodium 131 mEq/L (136-145); Total Protein 7.2 g/dL (6.4-8.9); eGFR For African Americans > 60 (> 60); eGFR For Non-African Americans > 60 (> 60)
[2021-05-27 11:25] LABS: C-Reactive Protein 201 mg/L (Less than 10)
[2021-05-27] MEDS ORDERED: Vancomycin 1,250 MG/262.5 ML IV.SOLN IVPB ONE (12:00)
[2021-05-27] MEDS ORDERED: Ondansetron 4 MG/2 ML VIAL IVP PRN (12:01)
[2021-05-27] MEDS ORDERED: Naloxone 0.4 MG/ML INJ IVP PRN (12:01)
[2021-05-27] MEDS ORDERED: Melatonin 3 MG TABLET PO PRN (12:01)
[2021-05-27 12:46] LABS: Magnesium 1.8 mg/dL (1.6-2.6)
[2021-05-27] MEDS ORDERED: *HR* LORazepam 2 MG/ML VIAL IVP PRN ×3 (13:37)
[2021-05-27] MEDS ORDERED: Isovue-370 500 ML BOTTLE IVP ONE (14:32)
[2021-05-27] MEDS: Cefepime HCl 1,000 MG in Water for inj. (sterile) 10 ML IVP SCH ×2 (17:05→23:33)
[2021-05-27] MEDS: *HR* Heparin 5,000 UNIT/ML VIAL SQ SCH (17:06)
[2021-05-27] MEDS: Acetaminophen 325 MG TABLET PO PRN (20:13)
[2021-05-28] MEDS ORDERED: *HR* Metoprolol 5 MG/5 ML VIAL IVP ONE (00:08)
[2021-05-28 02:04] LABS: Hematocrit 33.8 % (37.5-50.1); Mean Corpuscular HGB Conc 35.2 g/dL (31.6-35.5); Mean Corpuscular Hemoglobin 32.1 pg (28.0-33.3); Mean Corpuscular Volume 91.1 fL (83.0-100.0); Mean Platelet Volume 9.8 fL (9.4-12.4); Platelet Count 317 K/mcL (140-400); Red Blood Count 3.71 M/mcL (4.19-5.50); Red Cell Distribution Width 13.8 % (11.5-14.5)
[2021-05-28 02:08] LABS: Hemoglobin 11.9 g/dL (12.9-16.9)
[2021-05-28 02:19] LABS: BUN/Creatinine Ratio 20 (6-26); Blood Urea Nitrogen 9 mg/dL (8-23); Calcium 7.9 mg/dL (8.6-10.3); Carbon Dioxide 25 mEq/L (23-29); Chloride 101 mEq/L (98-107); Glucose 122 mg/dL (70-105); Magnesium 1.7 mg/dL (1.6-2.6); Osmolality,Calculated 276 (280-300); Potassium 3.4 mEq/L (3.5-5.1); Sodium 133 mEq/L (136-145); eGFR For African Americans > 60 (> 60); eGFR For Non-African Americans > 60 (> 60)
[2021-05-28] MEDS: *HR* Heparin 5,000 UNIT/ML VIAL SQ SCH ×2 (05:12→17:56)
[2021-05-28] MEDS ORDERED: Ipratropium/Albuterol Neb 3 ML IH PRN (07:56)
[2021-05-28] MEDS: Folic Acid 1 MG TABLET PO SCH (09:32)
[2021-05-28] MEDS: Gabapentin 300 MG CAPSULE PO SCH ×2 (09:32→20:22)
[2021-05-28] MEDS: lisinopriL 20 MG TABLET PO SCH (09:32)
[2021-05-28] MEDS: Thiamine (B-1) 100 MG TABLET PO SCH (09:32)
[2021-05-28] MEDS: carvediloL 6.25 MG TABLET PO SCH ×2 (09:32→15:25)
[2021-05-28] MEDS ORDERED: Gadolinium Contrast Agent (WT Based) IV PRN ×2 (10:45→12:52)
[2021-05-28] MEDS: Cefepime HCl 1,000 MG in Water for inj. (sterile) 10 ML IVP SCH ×3 (11:35→23:10)
[2021-05-28] MEDS ORDERED: tiZANidine 4 MG TABLET PO PRN (16:37)
[2021-05-28] MEDS ORDERED: GADOBUTROL 30 MMOL/30 ML VIAL IVP ONE (18:20)
[2021-05-28] MEDS: Acetaminophen 325 MG TABLET PO PRN (20:22)
[2021-05-29 00:46] LABS: Basophils # 0.1 K/mcL (0.0-0.2); Basophils % 0.7 %; Eosinophils # 0.2 K/mcL (0.0-0.6); Eosinophils % 1.7 %; Hematocrit 31.5 % (37.5-50.1); Hemoglobin 10.8 g/dL (12.9-16.9); Immature Granulocytes % 1.1 % (0-4); Lymphocytes # 1.3 K/mcL (0.6-4.6); Lymphocytes % 11.2 %; Mean Corpuscular HGB Conc 34.3 g/dL (31.6-35.5); Mean Corpuscular Hemoglobin 32.2 pg (28.0-33.3); Mean Platelet Volume 9.9 fL (9.4-12.4); Monocytes # 1.5 K/mcL (0.0-1.3); Monocytes % 12.4 %; Neutrophils # 8.6 K/mcL (1.6-8.9); Platelet Count 317 K/mcL (140-400); Red Blood Count 3.35 M/mcL (4.19-5.50); Segmented Neutrophils % 72.9 %; White Blood Count 11.7 K/mcL (4.3-11.1)
[2021-05-29 00:56] LABS: BUN/Creatinine Ratio 20 (6-26); Blood Urea Nitrogen 9 mg/dL (8-23); Calcium 7.9 mg/dL (8.6-10.3); Carbon Dioxide 27 mEq/L (23-29); Chloride 98 mEq/L (98-107); Glucose 107 mg/dL (70-105); Osmolality,Calculated 273 (280-300); Potassium 3.1 mEq/L (3.5-5.1); Sodium 132 mEq/L (136-145); Vancomycin,Trough 11 mcg/mL (5-10); eGFR For African Americans > 60 (> 60); eGFR For Non-African Americans > 60 (> 60)
[2021-05-29] MEDS ORDERED: Vancomycin 1,250 MG/262.5 ML IV.SOLN IVPB SCH (02:00)
[2021-05-29] MEDS: *HR* Heparin 5,000 UNIT/ML VIAL SQ SCH ×2 (04:13→17:08)
[2021-05-29] MEDS: Acetaminophen 325 MG TABLET PO PRN ×2 (05:51→19:04)
[2021-05-29] MEDS: Cefepime HCl 1,000 MG in Water for inj. (sterile) 10 ML IVP SCH ×3 (10:59→23:47)
[2021-05-29] MEDS: Thiamine (B-1) 100 MG TABLET PO SCH (11:00)
[2021-05-29] MEDS: lisinopriL 20 MG TABLET PO SCH (11:01)
[2021-05-29] MEDS: carvediloL 6.25 MG TABLET PO SCH ×2 (11:02→17:07)
[2021-05-29] MEDS: Folic Acid 1 MG TABLET PO SCH (11:02)
[2021-05-29] MEDS: Gabapentin 300 MG CAPSULE PO SCH ×2 (11:02→21:03)
[2021-05-29] MEDS: Vancomycin 1,250 MG/262.5 ML IV.SOLN IVPB SCH (14:11)
[2021-05-30] MEDS: Vancomycin 1,250 MG/262.5 ML IV.SOLN IVPB SCH (01:05)
[2021-05-30] MEDS: *HR* Heparin 5,000 UNIT/ML VIAL SQ SCH (04:43)
[2021-05-30 05:14] LABS: Basophils # 0.1 K/mcL (0.0-0.2); Basophils % 0.7 %; Eosinophils # 0.3 K/mcL (0.0-0.6); Eosinophils % 2.8 %; Hematocrit 32.7 % (37.5-50.1); Hemoglobin 11.6 g/dL (12.9-16.9); Lymphocytes # 1.1 K/mcL (0.6-4.6); Lymphocytes % 9.2 %; Mean Corpuscular HGB Conc 35.5 g/dL (31.6-35.5); Mean Corpuscular Hemoglobin 32.7 pg (28.0-33.3); Mean Corpuscular Volume 92.1 fL (83.0-100.0); Mean Platelet Volume 9.4 fL (9.4-12.4); Monocytes # 1.2 K/mcL (0.0-1.3); Monocytes % 10.4 %; Neutrophils # 8.8 K/mcL (1.6-8.9); Platelet Count 335 K/mcL (140-400); Red Blood Count 3.55 M/mcL (4.19-5.50); Red Cell Distribution Width 13.8 % (11.5-14.5); Segmented Neutrophils % 75.9 %; White Blood Count 11.6 K/mcL (4.3-11.1)
[2021-05-30 05:28] LABS: BUN/Creatinine Ratio 16 (6-26); Blood Urea Nitrogen 7 mg/dL (8-23); Calcium 8.2 mg/dL (8.6-10.3); Carbon Dioxide 29 mEq/L (23-29); Chloride 98 mEq/L (98-107); Glucose 101 mg/dL (70-105); Osmolality,Calculated 278 (280-300); Potassium 3.3 mEq/L (3.5-5.1); Sodium 135 mEq/L (136-145); eGFR For African Americans > 60 (> 60); eGFR For Non-African Americans > 60 (> 60)
[2021-05-30 06:59] VITALS: BP 165/72; PULSE 85; TEMP 98.1; O2SAT 91
[2021-05-30] MEDS: Cefepime HCl 1,000 MG in Water for inj. (sterile) 10 ML IVP SCH (08:31)
[2021-05-30] MEDS: Folic Acid 1 MG TABLET PO SCH (08:32)
[2021-05-30] MEDS: Thiamine (B-1) 100 MG TABLET PO SCH (08:32)
[2021-05-30] MEDS: Gabapentin 300 MG CAPSULE PO SCH (08:32)
[2021-05-30] MEDS: carvediloL 6.25 MG TABLET PO SCH (08:32)
[2021-05-30] MEDS: lisinopriL 20 MG TABLET PO SCH (08:33)
== END 2021-05-30 14:06 | disposition home or self-care (01) | DRG 603 ==
LOC: 3BNU 09:40 → EMEROOARM 09:40 → 3BNU 13:14 → SUATTDRO 13:39
PROVIDERS: ADMIT Pharmacist; ATTEND Internal Medicine